=== PATIENT | male | born 1945 | race Caucasian/White ===

== ENCOUNTER 2021-09-07 16:44 | Inpatient (IN) | payer MEDICARE, OTHER, SELFPAY ==
[2021-09-07] VITALS (7 sets, daily range): BP systolic 130–146; BP diastolic 62–68; PULSE 79–93; RESP 22–31; TEMP 37.1–38.4; O2SAT 92–98
--- NOTE | 2021-09-07 16:45 | DI.RAD_ITS ---
Exam(s) XR PORTABLE CHEST AP EXAM: XR PORTABLE CHEST AP CLINICAL HISTORY: fever TECHNIQUE: 2D digital imaging was performed of the chest. Two images were obtained. AP views were obtained. COMPARISON: No exams were available for comparison FINDINGS: MEDIASTINUM: Normal. HEART: Normal. There is an aortic valve in place. PULMONARY VASCULATURE: Normal. LUNGS: Clear. PLEURAL SPACE: No pleural effusion or pneumothorax. BONE:Within normal limits for the patient's age. Sternal wires are present. OTHER FINDINGS:Normal. IMPRESSION: No acute pulmonary findings. DATA REPOSITORY: RADIATION DOSE DELIVERED:
--- NOTE | 2021-09-07 16:45 | RT.EKG_ITS ---
APPROVED REPORT Exam: Resting ECG Reason for Exam: fever Patient Location: E HR:89 bpm ECG Measurements Heart Rate 89 AXIS MO 155 P 63 QRSd 84 QRS 45 QT 349 T 44 QTc 424 Conclusion Sinus rhythm...normal P axis, V-rate 60- 99 Probable left atrial enlargement...P >50mS, <-0.10mV V1
[2021-09-07] MEDS: ACETAMINOPHEN 1,000 MG/100 ML BTL 400 MG (16:59)
--- NOTE | 2021-09-07 17:04 | ED.GENADUL_ITS ---
Discharge Plan Disposition Condition: Fair Discharge Details Chief Complaint: GenMedical Admit Date/Time: 09/07/21 20:23 Admit Provider: Tab Becker Attending Provider: Tab Becker Primary Care Provider: Oralia Bai ED Provider: Zoë Turner Discharge Instructions Activity:: Activity as Tolerated Diet:: NPO Discharge Orders Discharge Orders: Discharge Order (Routine); Ordered 09/14/21 Ordered By: Genevieve Da Silva Discharge Data Discharge Date/Time-TO BE ENTERED AT DEPARTURE: 09/07/21 22:28 Medical Decision Making <FREDERIC Melendez - Last Filed: 09/21/21 13:16> Patient is a pleasant 76-year-old gentleman brought in via EMS for chief complaint of confusion, foul-smelling urine, fever. Per EMS, patient went to bed as he typically would last night but then has not been willing or able to get out of bed for the remaining of the day. Coming in around 5 PM. They report that throughout the day, patient has been incontinent of urine at home in bed. This is atypical for the patient is typically up and around. Past medical history is pertinent for BPH, CHF, diabetes, GERD, hyperlipidemia, hyperglycemia, neuropathy, obesity, urinary incontinence. Patient syncope as per EMS, with history of CHF, given 500 cc bolus. He has not received any antipyretics today. On exam, patient appears acutely ill. He is quite confused is not able to tell me who he is, where he is or time. Patient is hot to touch, temp of 38.4, will give acetaminophen. Patient not able to follow commands but is moving spontaneously all 4 extremities. He is able to attempt to answer some questions but is fairly nonsensical. Lungs are clear in all pal. No notable abnormalities with cranial nerve testing, although this was limited. Patient does smell strongly of urine, has erythematous rash around groin area. No petechial rash, no nuchal rigidity. He does have lower extremity bilateral edema. Patient is tachycardic with a heart rate of 90, blood pressure 146/68. I am concerned for septicemia and will move forward with empiric antibiotic for likely underlying UTI given the presentation history. Howver, also concerned with the BLE edema for possible concominent CHF exacerbation, will be cautious with fluids and obtain BNP. Labs reviewed. WBC 13, hgb 12.8, lactate 1.7, BNP 2129. Spoke with patient's . She reports that rash is chronic, had been diagnosed by PCP with yeast infection and treated with prednisone. She reports that the prednisone was completed 3 weeks ago- had been on it chronically. She states that the significant rash is baseline. She reports that he often does not drink much. Feels that the report from EMS was appropriate. Uses a lift chair at baseline. Erin [id number]. With confusion, concerned for urosepsis, will obtain CT to ensure no obstructing stone. Patient also had some discomfort with palpation of lower abdomen. Urine shows many bacteria. COVID negative. FINDINGS: Tubes, catheters and devices: Aortic valvular prosthesis in the expected position. Lungs: No consolidation. Pleural spaces: No pleural effusion. No pneumothorax. Heart/Mediastinum: No significant cardiomegaly for position and projection. Bones/joints: Median sternotomy wires. No displaced fracture. IMPRESSION: Negative portable chest. FINDINGS: Tubes, catheters and devices: Aortic valvular prosthesis in the expected position. Liver: Heterogeneous fatty liver. No hepatic masses on noncontrast imaging. Gallbladder and bile ducts: No calcified stones. No ductal dilation. Pancreas: No gross pathology in the pancreas on noncontrast imaging. Spleen: Small splenic calcifications compatible with benign granulomata. Adrenal glands: No mass. Kidneys and ureters: No nephrolithiasis or collecting system obstruction. Stomach and bowel: Colonic diverticulosis without diverticulitis. No gross pathology in the small bowel on noncontrast imaging. Appendix: No evidence of appendicitis. Intraperitoneal space: No free air. No significant fluid collection. Vasculature: No abdominal aortic aneurysm. Lymph nodes: No significantly enlarged lymph nodes. Urinary bladder: Andres catheter decompresses a probably mildly thick-walled urinary bladder. Reproductive: Moderate prostatic enlargement. Bones/joints: Median sternotomy wires. Left total hip arthroplasty visualized portions anatomic. Chronic bony changes with no acute fracture. Soft tissues: Large fat-containing umbilical hernia. IMPRESSION: 1. Andres catheter decompresses a probably mildly thick-walled urinary bladder.? Wall thickening could be due to chronic outlet disease and or cystitis.? No hydronephrosis. 2. Incidental findings as described. Patient appears to be clearing some. More interactive and appropriate although still confused. Consulted with hospitalist regarding admission for urosepsis. Hospitalist agrees to admission. <Will Younger MD - Last Filed: 09/10/21 16:05> Date: 09/07/21 Time: 16:50 Note: Patient seen, examined, and discussed with FREDERIC Turner. Labs reviewed and leukocytosis noted. Agree with concern for sepsis. Consider urinary source. Urinalysis pending. Patient does have significant tinea cruris and may have superimposed cellulitis right groin. I agree with treatment plan as discussed/documented. HPI <FREDERIC Melendez - Last Filed: 09/21/21 13:16> General Date/Time Provider Initiated Documentation: 09/07/21 16:59 . Limitations to Documentation: altered mental status . Information obtained by: EMS, RN notes reviewed and old records reviewed . History of Present Illness 76 year old M presents to the emergency department with the chief complaint of AMS, fever, urinary incontinence, foul smelling urine, Related Data Home Medications Medication Instructions Recorded Confirmed acetaminophen 500 mg tablet 500 mg PO TID PRN 02/27/14 09/08/21 (Acetaminophen Extra Strength) multivit, iron, min. comb. 1 tab PO DAILY ##30 04/01/14 09/08/21 no.8-folic acid 9 mg-0.4 mg tablet (Therapeutic-M) pravastatin 40 mg tablet 40 mg PO QPM ##30 04/01/14 09/08/21 furosemide 20 mg tablet (Lasix) 20 mg PO DAILY 08/29/21 09/08/21 metformin 500 mg tablet 500 mg PO BID 08/29/21 09/08/21 metoprolol succinate 25 mg 25 mg PO DAILY 09/08/21 09/08/21 tablet,extended release 24 hr omeprazole 20 mg capsule,delayed 20 mg PO DAILY 09/08/21 09/08/21 release aspirin 325 mg tablet 325 mg PO DAILY 09/13/21 09/13/21 Previous Rx's Medication Instructions Recorded multivit, iron, min. comb. 1 tab PO DAILY ##30 04/01/14 no.8-folic acid 9 mg-0.4 mg tablet (Therapeutic-M) pravastatin 40 mg tablet 40 mg PO QPM ##30 04/01/14 Allergies Allergy/AdvReac Type Severity Reaction Status Date / Time No Known Allergies Allergy Unverified 02/25/14 20:32 General Stated Complaint: GenMedical CLEMENTINA: 2 Review of Systems <FREDERIC Melendez - Last Filed: 09/21/21 13:16> Narrative: Unable to obtain from patient secondary to mental status PFSH <FREDERIC Melendez - Last Filed: 09/21/21 13:16> All Active Problems (Updated 09/15/21 @ 00:01 by MARGARETH SENA) 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 Aortic valve replacement 04/2013 b. left THR 10/04/2013 c. Left TKR 6-7 years ago Hypertension (Chronic) Medical History BPH (benign prostatic hyperplasia) CHF (congestive heart failure) Diabetes Dizziness and giddiness GERD (gastroesophageal reflux disease) HLD (hyperlipidemia) Hyperglycemia Neuropathy Obesity Psoriasis Urinary incontinence Surgical History H/O hernia repair Hx of CABG S/P appendectomy S/P knee replacement Social History Smoking/Tobacco Use Status: Former Tobacco Use Smoking risk assessment performed?: Yes Drug use: Never Substance use type: does not use Do you feel safe at home: Yes Do you feel safe in your relationship?: Yes Exam <FREDERIC Melendez - Last Filed: 09/21/21 13:16> Const General: cooperative, not healthy appearing, comfortable, well developed, disheveled, ill appearing acutely and No well hydrated Nutritional Appearance: well nourished and overweight Orientation: alert, awake, not oriented x3 and confused HENNY Head: normal to inspection, normocephalic and atraumatic Ears: hearing grossly normal bilaterally, external ears normal and TM's normal bilaterally General nose exam: external nose normal and nares normal Face and sinus: normal facial exam, sinuses nontender and face symmetric Mouth: lip normal, tongue normal, oropharynx normal and mucous membranes dry (appears dry) Teeth and gingiva: dentition normal Throat: posterior oropharynx normal, tonsils normal and uvula midline Eyes General: appearance normal, both eyes and all related structures (EOM intact, PERRLA) Neck Neck: normal visual inspection, full ROM, no lymphadenopathy and no meningeal signs Resp Effort & Inspection: normal respiratory effort, able to speak in complete sentences and no respiratory distress Auscultation: clear to auscultation bilaterally, no rales, no rhonchi and no wheezes Cardio Rate: regular rate Rhythm: regular rhythm Heart Sounds: S1 normal and S2 normal GI Inspection: normal to inspection (rash as below) Palpation: soft, no hepatosplenomegaly, no guarding, not rigid and tender (pain elicited with palpation of lower abdomen, no peritoneal findings) not at McBurney's point and with no rebound tenderness General: bimanual renal exam normal bilaterally (rash, otherwise no acute abnormality or pain) Skin Rashes: rashes noted (diffuse erythematous rash consistent with tinuea, possible cellulitis) and other (rash is along length or right side of body and groin) Neuro General: patient alert and patient awake Cognition: abnormal cognition Speech: speech normal Gait: other (did not assess gait) Motor: muscle tone normal throughout, no pronator drift and no movement abnormalities noted Extrem General: normal to inspection (right to right lateral thigh, disipates distal to this), capillary refill normal, no joint enlargement, no pedal edema, no calf tenderness and other (2+ distal pulses) Psych Appearance: disheveled Course <FREDERIC Melendez - Last Filed: 09/21/21 13:16> Vital Signs Vital signs: Vital Signs Temperature 38.4 C H 09/07/21 16:46 Pulse 90 09/07/21 16:46 Respiratory Rate 28 H 09/07/21 16:46 Blood Pressure 146/68 H 09/07/21 16:46 Pulse Oximetry 94 09/07/21 16:46 Temperature 38.4 C H 09/07/21 16:46 Temperature Source Skin 09/07/21 16:46 Pulse 90 09/07/21 16:46 Respiratory Rate 28 H 09/07/21 16:46 Blood Pressure 146/68 H 09/07/21 16:46 Blood Pressure Position Supine 09/07/21 16:46 Pulse Oximetry 94 09/07/21 16:46 Oxygen Delivery Method Room Air 09/07/21 16:46 Oxygen Flow Rate 0 09/07/21 16:46 Comment 09/07/21 16:46 Lab/Test Results Lab/Test Results: 09/07/21 17:00 Blood Blood Culture - Pending 09/07/21 17:00 Blood Blood Culture - Pending
--- NOTE | 2021-09-07 17:30 | DI.CT_ITS ---
Exam(s) CT ABDOMEN PELVIS WO EXAM: CT ABDOMEN PELVIS WO CLINICAL HISTORY: concerned for urosepsis, mildiscomfort centrally. TECHNIQUE: Imaging Protocol: Axial computed tomography images with coronal and sagittal reformatted images were created and reviewed. COMPARISON: No exams were available for comparison FINDINGS: Lack of IV contrast does limit evaluation of the abdominal pelvic organs. The examination is limited due to patient motion artifact. ABDOMEN: Lung Bases: Coronary artery calcifications. Aortic valve replacement. Calcified lymph nodes in the mediastinum consistent with prior granulomatous disease. Small hiatal hernia. Liver: Diffuse fatty infiltration of the liver. No measurable mass. Gallbladder and biliary tract: No radiodense calculus or biliary ductal dilation. Pancreas: Normal density, no abnormal calcifications or inflammatory process. Spleen: Calcified granuloma in the spleen. Kidneys: Normal size, contour and axis.No radiodense stones or obstructive uropathy. No masses seen. Adrenal glands: No mass is seen. Lymph nodes: Within normal limits. Abdominal Aorta: Abdominal portion non-dilated. Atherosclerosis. PELVIS: Bladder:The bladder is decompressed with Andres catheter in place limiting evaluation. The bladder wa ll is thickened. This may be due to underdistention. Chronic bladder outlet obstruction or inflamma tion/infection cannot be excluded. Bowel: No obstruction or bowel wall thickening. No evidence of appendicitis. Peritoneal cavity: No ascites, collection or mesenteric inflammatory response. No free air. Reproductive organs: Enlarged prostate gland. Bones: Within normal limits. Patient has a left total hip replacement. Soft Tissues: There is a moderate size fat containing midline anterior abdominal wall hernia. IMPRESSION: 1. Limited evaluation of the urinary bladder secondary to decompression. There is a Andres catheter i n place. There is thickening of the wall of the urinary bladder. This may be due to underdistention , chronic bladder outlet obstruction or an infectious/inflammatory process. Please correlate clinica lly. 2. Nonemergent chronic findings in the abdomen and pelvis as described above. RADIATION DOSE DELIVERED: 1,542.84mGy.cm Total DLP DATA REPOSITORY: All CT scans at this facility are submitted to the National Radiology Data Registry (NRDR) Dose Index Registry (DIR) with the [employer] ([employer]). RADIATION OPTIMIZATION: All CT scans at this facility use at least one of these dose optimization te chniques: automated exposure control; mA and/or kV adjustment per patient size (includes targeted exa ms where dose is matched to clinical indication); or iterative reconstruction.
[2021-09-07 17:42] LABS: Abs Immature Grans 0.11 10^3/uL (0.0-0.06); Absolute Basophil Count 0.03 10^3/uL (0.0-0.2); Absolute Eosinophil Count 0.03 10^3/uL (0.0-0.7); Absolute Monocyte Count 0.25 10^3/uL (0.1-0.8); Basophils % 0.2; Eosinophils % 0.2; HGB 12.8 g/dL (13.5-17.5); Immature Grans % 0.8; Lymphocytes % 4.4; MCH 33.2 pg (27.0-33.0); MCHC 33.7 % (32.0-36.0); MCV 98 fL (80-95); MPV 10.8 fL (8.0-11.0); Monocytes % 1.9; Neutrophils % 92.5; Platelet Count 225 10^3/uL (130-400); RBC 3.86 10^6/uL (4.36-5.78); RDW-SD 46.3 fL; WBC 13.05 10^3/uL (4.4-10.8)
[2021-09-07 17:43] LABS: Absolute Lymphocyte Count 0.57 10^3/uL (1.2-3.4); Absolute Neutrophil Count 12.07 10^3/uL (1.2-6.7)
[2021-09-07 17:51] LABS: Lactate 1.7 mmol/L (0.6-1.4)
[2021-09-07 18:10] LABS: ALT 27 U/L (16-63); AST 17 U/L (15-37); Albumin 3.1 g/dL (3.4-5.0); Alkaline Phosphatase 73 U/L (46-116); Anion Gap 10.2 mmol/L (3-11); BUN 15 mg/dL (7-18); CO2 25.8 mmol/L (21.0-32.0); CREATININE 1.2 mg/dL (0.70-1.30); Calcium 8.3 mg/dL (8.5-10.1); Chloride 103 mmol/L (98-107); Estimated GFR 58.56 (mL/min/1.73m2); Glucose 212 mg/dL (74-106); Potassium 3.9 mmol/L (3.5-5.1); Sodium 139 mmol/L (136-145); Total Protein 7.5 g/dL (6.4-8.2)
[2021-09-07] MEDS: IMIPENEM/CILASTATIN 500 MG in Normal Saline 100 ML 200 MG IVPB (18:12)
[2021-09-07 18:30] LABS: Troponin I < 50 ng/L (<or=60)
[2021-09-07 18:34] LABS: NT-proBNP 2192 pg/mL (<300)
[2021-09-07 19:34] LABS: Bilirubin Negative (Negative); Blood Large (Negative); Clarity Sl Cloudy (Clear); Glucose Negative (Negative); Ketones Negative (Negative); Leukocyte Esterase Trace (Negative); Nitrite Negative (Negative); Specific Gravity >= 1.030 (1.005-1.025); Urobilinogen 0.2 EU/dL (Up TO 0.2)
[2021-09-07 19:40] LABS: Bacteria Many HPF (Negative); C & S Indicated? Yes; Casts Negative LPF (Negative); Crystals Negative HPF (Negative); Epithelial Cells Negative HPF (Negative); Mucus Trace (Negative); RBC >50 HPF (0-2); WBC 20-50 HPF (0-5)
--- NOTE | 2021-09-07 19:47 | DI.VRAD_ITS ---
PROCEDURE INFORMATION: Exam: XR Chest Exam date and time: 09/07/2021 19:18 Age: 76 years old Clinical indication: Fever TECHNIQUE: Imaging protocol: XR of the chest. Views: 1 view. COMPARISON: No relevant prior studies available. FINDINGS: Tubes, catheters and devices: Aortic valvular prosthesis in the expected position. Lungs: No consolidation. Pleural spaces: No pleural effusion. No pneumothorax. Heart/Mediastinum: No significant cardiomegaly for position and projection. Bones/joints: Median sternotomy wires. No displaced fracture. IMPRESSION: Negative portable chest. Dictated and Authenticated by: Dora Holder MD. Ordering:LADONNA Camp MD
--- NOTE | 2021-09-07 19:49 | DI.VRAD_ITS ---
PROCEDURE INFORMATION: Exam: CT Abdomen And Pelvis Without Contrast Exam date and time: 09/07/2021 19:23 Age: 76 years old Clinical indication: Other: Urosepsis TECHNIQUE: Imaging protocol: Computed tomography of the abdomen and pelvis without contrast. COMPARISON: CR XR PORTABLE CHEST AP 09/07/2021 19:18 FINDINGS: Tubes, catheters and devices: Aortic valvular prosthesis in the expected position. Liver: Heterogeneous fatty liver. No hepatic masses on noncontrast imaging. Gallbladder and bile ducts: No calcified stones. No ductal dilation. Pancreas: No gross pathology in the pancreas on noncontrast imaging. Spleen: Small splenic calcifications compatible with benign granulomata. Adrenal glands: No mass. Kidneys and ureters: No nephrolithiasis or collecting system obstruction. Stomach and bowel: Colonic diverticulosis without diverticulitis. No gross pathology in the small bowel on noncontrast imaging. Appendix: No evidence of appendicitis. Intraperitoneal space: No free air. No significant fluid collection. Vasculature: No abdominal aortic aneurysm. Lymph nodes: No significantly enlarged lymph nodes. Urinary bladder: Andres catheter decompresses a probably mildly thick-walled urinary bladder. Reproductive: Moderate prostatic enlargement. Bones/joints: Median sternotomy wires. Left total hip arthroplasty visualized portions anatomic. Chronic bony changes with no acute fracture. Soft tissues: Large fat-containing umbilical hernia. IMPRESSION: 1. Andres catheter decompresses a probably mildly thick-walled urinary bladder. Wall thickening could be due to chronic outlet disease and or cystitis. No hydronephrosis. 2. Incidental findings as described. Dictated and Authenticated by: Dora Holder MD. Ordering:LADONNA Camp MD
[2021-09-07 19:56] LABS: Procalcitonin 0.1 ng/mL
[2021-09-07] MEDS: VANCOMYCIN/WATER (PEG) 1.75 GM/350 ML BAG IVPB (20:11)
[2021-09-07 20:22] LABS: COVID-19 PCR Negative (Negative); Influenza A PCR Negative (Negative); Influenza B PCR Negative (Negative); RSV PCR Negative (Negative)
[2021-09-07 20:24] LABS: Source Nasopharynx
[2021-09-07 22:33] LABS: Troponin I < 50 ng/L (<or=60)
--- NOTE | 2021-09-07 22:53 | NUR.NOTE ---
Patient transferred to ICU at 22:22. Report given to Marissa.Nursing Note:
[2021-09-07] MEDS: Normal Saline 1,000 ML 125 ML IV (23:00)
--- NOTE | 2021-09-07 23:12 | W.PM.HP.N ---
Date of service: 09/07/21 Time of Service: 22:23 Assessment and Plan Assessment and plan (1) Sepsis secondary to UTI: Status: Acute Assessment and plan: Emergency room evaluation suggests UTI as cause of sepsis. I do agree with the diagnosis of early sepsis on presentation with fever, high WBC, confusion. Looking at the UA, however, I'm not totally convinced this is the source. Negative nitrite speaks against gram negative. He also has a large apparently fungal rash that includes open fissures that may be superinfected. CT A/P did not reveal an alternative cause. No signs of respiratory illness. I'm not sure how long he has been on prednisone, so he may be immune suppressed. He is not showing signs of adrenal insufficiency. Given uncertainty, I will continue imepenem and vancomycin to cover urosepsis but also skin infection while blood and urine cultures are pending. (2) Rash: Status: Acute Assessment and plan: This does look fungal as it is focused in intertriginous areas and has satellite lesions, however it extends from the groin and thight up to right axilla. I will treat with topical steroid/antifungal/barrier cream, consider oral antifungal if not improving. (3) CAD (coronary artery disease): Status: Chronic Assessment and plan: We need to clarify this history. He is on a lower intensity statin and ASA dose we have is high. Will try to clarify with records in the AM. Currently he denies chest pain and has no signs of CHF, EKG is benign. (4) Type 2 diabetes mellitus: Status: Acute Assessment and plan: On metformin as outpatient. Hold this for now, use ISS low to start, get A1c. (5) S/P AVR (aortic valve replacement): Status: Chronic Assessment and plan: Warfarin listed on med list, presumably for AVR (CXR c/w open replacement). His heart does not sound like mechanical valve. We need more clear records, but for now get INR which will confirm if he is taking warfarin. Dose to maintain INR ~3 if he is truly on this. (6) Mobility impaired: Status: Acute Assessment and plan: I'm concerned that he may have Parkinson disease given the increased tone and some slow rubbing tremor in right hand. This would explain his progressive immobility. Will review outpatient record and consider neurology consult and medication trial. (7) DVT prophylaxis: Status: Acute Assessment and plan: see above re: warfarin (8) Discharge planning issues: Status: Acute History of Present Illness History of Present Illness Chief Complaint: confusion Narrative: 76 yo M with history of CAD, quite sedentary at baseline, who woke this morning with fevers and foul smelling urine. During the course of the day he became increasingly confused and his brought him into the hospital. History second hand from ED record from his family as patient is unable to relate the history to me. He was acting his normal self the night prior to admission. No signs of respiratory infection. He has had a severe fungal rash for months, hasn't changed much. Can't recall treatments given. Review of Systems Narrative: limited by mental status/cooperation. Constitutional Comments: he is hungry. Eyes Comments: no pain or vision changes ENT Comments: mouth dry, denies pain. no runny nose. Cardiovascular Comments: no chest pain or palpitations Respiratory Comments: no cough or dyspnea Gastrointestinal Comments: no n/v, no change in bowels Genitourinary Comments: did not answer clearly about dysuria. no sores in genitals. no blood in urrine noted. Neurologic Comments: no focal weakness/numbness. no NARANJO Psychiatric Comments: does not answer questions about mood PFSH All Active Problems (Updated 09/08/21 @ 00:03 by Tab Becker) Mobility impaired (Acute) Type 2 diabetes mellitus (Acute) Discharge planning issues (Acute) DVT prophylaxis (Acute) Rash (Acute) Sepsis secondary to UTI (Acute) Hypercholesteremia (Chronic) CAD (coronary artery disease) (Chronic) S/P AVR (aortic valve replacement) (Chronic) 04/2013 H/O surgical procedure (Chronic) a. Aortic valve replacement 04/2013 b. left THR 10/04/2013 c. Left TKR 6-7 years ago Hypertension (Chronic) Medical History (Updated 09/08/21 @ 00:03 by Tab Becker) BPH (benign prostatic hyperplasia) CHF (congestive heart failure) Diabetes Dizziness and giddiness GERD (gastroesophageal reflux disease) HLD (hyperlipidemia) Hyperglycemia Neuropathy Obesity Psoriasis Urinary incontinence Surgical History (Updated 08/29/21 @ 09:47 by Lyndsey Solorio) H/O hernia repair Hx of CABG S/P appendectomy S/P knee replacement Social History Smoking/Tobacco Use Status: Former Tobacco Use Smoking risk assessment performed?: Yes Drug use: Never Substance use type: does not use Do you feel safe at home: Yes Do you feel safe in your relationship?: Yes Meds Allergies and Home Medications Allergies Allergy/AdvReac Type Severity Reaction Status Date / Time No Known Allergies Allergy Unverified 02/25/14 20:32 Home Medications Medication Instructions Recorded Confirmed Type acetaminophen 500 mg tablet 500 mg PO TID 02/27/14 02/27/14 History (Acetaminophen Extra Strength) nitroglycerin 0.4 mg sublingual 0.4 mg sublingual PRN PRN 02/27/14 02/27/14 History tablet aspirin 325 mg tablet 325 mg PO BID ##60 04/01/14 Rx atenolol 25 mg tablet 12.5 mg PO DAILY ##30 04/01/14 Rx multivit, iron, min. comb. 1 tab PO DAILY ##30 04/01/14 Rx no.8-folic acid 9 mg-0.4 mg tablet (Therapeutic-M) polyethylene glycol 3350 17 gram 17 g PO BID PRN PRN ##0 04/01/14 02/27/14 Rx oral powder packet (Miralax) pravastatin 40 mg tablet 40 mg PO QPM ##30 04/01/14 Rx sennosides 8.6 mg tablet (Senna 8.6 mg PO DAILY PRN PRN ##0 04/01/14 02/27/14 Rx Lax) famotidine 40 mg tablet 40 mg PO DAILY 08/29/21 History furosemide 20 mg tablet (Lasix) 20 mg PO DAILY 08/29/21 History ibuprofen 800 mg tablet 800 mg PO Q8H PRN 08/29/21 History metformin 500 mg tablet 500 mg PO BID 08/29/21 History prednisone 10 mg tablet 10 mg PO DAILY 08/29/21 History tramadol 50 mg tablet 50 mg PO Q6H PRN 08/29/21 History warfarin 5 mg tablet 5 mg PO DAILY 08/29/21 History Exam Narrative Exam Narrative: GEN: Alert, oriented to place and self, but only intermittently gives attention or responds to examiner. Answers some but not all direct questions, unable to relate a history. No acute distress at rest. HEENT: Head atraumatic. Conjunctiva clear, no icterus. PEERL, EOMI. no rhinorrhea. MM dry, he declines to take out upper dentures, whitish plaque on tongue, but he refuses to keep his mouth open to examine fully. Neck is supple with no masses or lymphadenopathy, trachea midline. no elevation of JVP LUNGS: CTAB with normal effort CV: RRR. I couldn't appreciate a murmur. no gallops or rubs. ABD: +BS, soft, 4cm umbilical hernia. Mild suprapubic tenderness. no guarding/rebound EXT: no cyanosis, clubbing, legs not tender. Trace jessica ankle edema MSK: No joint redness or swelling NEURO: CN 2-12 grossly intact. holding his arms flexed with hands together against chest. +increased tone jessica with cogwheeling in arms. Rhythmically rubbing 1st-2nd fingers together on right. Normal speech. Needs a lot of coaching just to reach across or move in bed. Full exam limited but patient cooperation/ability. SKIN: beefy red patch extending from right thigh into groin, up under pannus, up to right axilla. skin fissues cracked in groin and under pannus PSYCH: normal mood and flat. Results Imaging Chest x-ray: image reviewed (no acute disease, old sternotomy wires) Abdomen CT scan report/results: report reviewed CT scan - pelvis: report reviewed (1. Andres catheter decompresses a probably mildly thick-walled urinary bladder. Wall thickening could be due to chronic outlet disease and or cystitis. No hydronephrosis. 2. Incidental findings as described.) EKG: image reviewed (NSR, nl axis, intervals. No ST-T abnormalities) Labs Result diagrams: 09/07/21 17:20 09/07/21 17:20 Labs: Laboratory Results - last 24 hr 09/07/21 09/07/21 09/07/21 17:20 17:20 17:20 WBC 13.05 H RBC 3.86 L Hgb 12.8 L Hct 38.0 L MCV 98 H MCH 33.2 H MCHC 33.7 RDW 13.0 Plt Count 225 MPV 10.8 Immature Gran % 0.8 Neutrophils % 92.5 Lymphocytes % 4.4 Monocytes % 1.9 Eosinophils % 0.2 Basophils % 0.2 Nucleated RBC % 0.0 Absolute Neutrophils 12.07 H Absolute Lymphocytes 0.57 L Absolute Monocytes 0.25 Absolute Eosinophils 0.03 Absolute Basophils 0.03 VBG Lactate Sodium Potassium Chloride Carbon Dioxide Anion Gap BUN Creatinine Estimated GFR/1.73 m2 Glucose Calcium Total Bilirubin AST ALT Alkaline Phosphatase Troponin I < 50 NT-Pro-B Natriuret Pep Total Protein Albumin Procalcitonin 0.1 Urine Color Urine Clarity Urine pH Ur Specific [place] Urine Protein Urine Ketones Urine Blood Urine Nitrite Urine Bilirubin Urine Urobilinogen Ur Leukocyte Esterase Urine RBC Urine WBC Ur Epithelial Cells Urine Crystals Urine Bacteria Urine Casts Urine Mucus Ur Culture Indicated? Urine Glucose COVID-19 Source SARS-CoV-2 (PCR) Influenza Type A (PCR) Influenza Type B (PCR) RSV (PCR) 09/07/21 09/07/21 09/07/21 17:20 17:20 17:29 WBC RBC Hgb Hct MCV MCH MCHC RDW Plt Count MPV Immature Gran % Neutrophils % Lymphocytes % Monocytes % Eosinophils % Basophils % Nucleated RBC % Absolute Neutrophils Absolute Lymphocytes Absolute Monocytes Absolute Eosinophils Absolute Basophils VBG Lactate 1.7 H Sodium 139 Potassium 3.9 Chloride 103 Carbon Dioxide 25.8 Anion Gap 10.2 BUN 15 Creatinine 1.2 Estimated GFR/1.73 m2 58.56 Glucose 212 H Calcium 8.3 L Total Bilirubin 1.0 AST 17 ALT 27 Alkaline Phosphatase 73 Troponin I NT-Pro-B Natriuret Pep 2192 H Total Protein 7.5 Albumin 3.1 L Procalcitonin Urine Color Urine Clarity Urine pH Ur Specific [place] Urine Protein Urine Ketones Urine Blood Urine Nitrite Urine Bilirubin Urine Urobilinogen Ur Leukocyte Esterase Urine RBC Urine WBC Ur Epithelial Cells Urine Crystals Urine Bacteria Urine Casts Urine Mucus Ur Culture Indicated? Urine Glucose COVID-19 Source SARS-CoV-2 (PCR) Influenza Type A (PCR) Influenza Type B (PCR) RSV (PCR) 09/07/21 09/07/21 09/07/21 19:20 19:40 22:12 WBC RBC Hgb Hct MCV MCH MCHC RDW Plt Count MPV Immature Gran % Neutrophils % Lymphocytes % Monocytes % Eosinophils % Basophils % Nucleated RBC % Absolute Neutrophils Absolute Lymphocytes Absolute Monocytes Absolute Eosinophils Absolute Basophils VBG Lactate Sodium Potassium Chloride Carbon Dioxide Anion Gap BUN Creatinine Estimated GFR/1.73 m2 Glucose Calcium Total Bilirubin AST ALT Alkaline Phosphatase Troponin I < 50 NT-Pro-B Natriuret Pep Total Protein Albumin Procalcitonin Urine Color Yellow Urine Clarity Sl Cloudy Urine pH 6.0 Ur Specific [place] >= 1.030 H Urine Protein 30 H Urine Ketones Negative Urine Blood Large H Urine Nitrite Negative Urine Bilirubin Negative Urine Urobilinogen 0.2 Ur Leukocyte Esterase Trace H Urine RBC >50 H Urine WBC 20-50 H Ur Epithelial Cells Negative Urine Crystals Negative Urine Bacteria Many Urine Casts Negative Urine Mucus Trace Ur Culture Indicated? Yes Urine Glucose Negative COVID-19 Source Nasopharynx SARS-CoV-2 (PCR) Negative Influenza Type A (PCR) Negative Influenza Type B (PCR) Negative RSV (PCR) Negative Last Vital Signs Temp 37.1 C 09/07/21 20:37 Pulse 91 H 09/07/21 20:37 Resp 22 09/07/21 20:37 BP 146/68 H 09/07/21 16:46 Pulse Ox 92 09/07/21 20:37
[2021-09-08] VITALS (7 sets, daily range): BP systolic 124–148; BP diastolic 51–73; PULSE 66–96; RESP 17–24; TEMP 37–38.9; O2SAT 95–99
[2021-09-08] MEDS: ACETAMINOPHEN 1,000 MG/100 ML BTL 400 MG IVPB (01:13)
[2021-09-08] MEDS: IMIPENEM/CILASTATIN 500 MG in Normal Saline 100 ML 200 MG IVPB ×4 (01:38→21:15)
[2021-09-08 05:08] LABS: INR 1.1 (0.9-1.1)
[2021-09-08] MEDS: Atenolol 25 MG TAB 12.5 MG PO (07:52)
[2021-09-08] MEDS: Acetaminophen 500 MG TAB PO ×2 (07:52→21:56)
[2021-09-08] MEDS: Famotidine 20 MG TAB 40 MG PO (07:53)
[2021-09-08] MEDS: Furosemide 20 MG TAB PO (07:53)
[2021-09-08] MEDS: Insulin Aspart 300 UNITS/3 ML PEN SC ×3 (08:43→17:29)
[2021-09-08] MEDS: Normal Saline 1,000 ML 125 ML IV (08:45)
--- NOTE | 2021-09-08 09:20 | NUR.NOTE ---
RN gives telephonic update to patient's who will visit after noon today.Nursing Note:
--- NOTE | 2021-09-08 09:25 | PDOC.CMIN ---
- If Service Date Differs Date of service: 09/08/21 Time of Service: 09:25 Care Management Initial Assess REASON FOR HOSPITALIZATION:: UTI, Septicemia. PAST MEDICAL HISTORY/PAST SURGICAL HISTORY:: All Active Problems: Mobility impaired (Acute), Type 2 diabetes mellitus (Acute), Discharge planning issues (Acute), DVT prophylaxis (Acute),. Rash (Acute), Sepsis secondary to UTI (Acute), Hypercholesteremia (Chronic), CAD (coronary artery disease) (Chronic), S/P AVR (aortic valve replacement) (Chronic) - 04/2013, H/O surgical procedure (Chronic) - a. Aortic valve replacement 04/2013, b. left THR 10/04/2013, c. Left TKR 6-7 years ago, and Hypertension (Chronic). Medical History: BPH (benign prostatic hyperplasia), CHF (congestive heart failure), Diabetes, Dizziness and giddiness, GERD (gastroesophageal reflux disease), HLD (hyperlipidemia), Hyperglycemia, Neuropathy,. Obesity, Psoriasis, and Urinary incontinence. Surgical History: H/O hernia repair, Hx of CABG, S/P appendectomy, and. S/P knee replacement. PREVIOUS FUNCTIONAL STATUS/SOCIAL/FAMILY SUPPORTS:: Alvarez lives in [facility] with his , their son Quan, [id number], and 4 grandkids. Alvarez is retired but formerly worked at [employer] in the [employer]. Alvarez and his have 6 children, 3 sons and 3 daughters, all of whom live in [place] with the exception of one son who resides in [place]. Alvarez enjoys watching television and especially likes the [employer] television series. CURRENT FUNCTIONAL STATUS:: Alvarez is sitting up in bed when CM comes to see him. His and son are present in the room. He states when at home, he spends a lot of time sleeping. He at times seems a bit confused and has difficulty answering questions. Per his , he ambulates at home with a walker. ADVANCE DIRECTIVES:: None on file; Alvarez declines form. Has patient been provided with info about the portal/API?: Yes Did the patient sign up for the portal?: No CODE STATUS:: Full Code INSURANCE COVERAGE / FINANCIAL ISSUES:: [employer] and Medicare. CURRENT HOME/COMMUNITY SERVICES/EQUIPMENT:: No services. Alvarez owns a cane, walker, hospital bed, and lift chair. PRIMARY CARE PHYSICIAN:: Alvarez formerly saw Oralia Bai NP, at [facility]. Oralia has since retired and Alvarez has been assigned to a new provider at the clinic and will be meeting with him in September. Neither Alvarez or his can recall the provider's name. POTENTIAL DISCHARGE NEEDS:: Follow up appointment with PCP. PATIENT/FAMILY EDUCATION NEEDS:: Review of discharge instructions re medications and follow up plan of care; discuss Ask Me Three and self management. ANTICIPATED BARRIERS TO DISCHARGE:: None identified. TRANSPORTATION:: Via private vehicle with family. PLAN:: Alvarez will discharge home with no services when medically cleared by provider. He will follow up with his PCP and discharge plan of care as directed. He will be transported home via private vehicle by family when ready. CM will continue to follow.
[2021-09-08] MEDS: VANCOMYCIN/WATER (PEG) 1.25 GM/250 ML BAG IVPB (10:00)
--- NOTE | 2021-09-08 10:06 | NUR.NOTE ---
RN calls lab to see what the delay in drawing patient is. pharmacy technician program director will be up to draw patient.Nursing Note:
--- NOTE | 2021-09-08 10:13 | PGE_ITS ---
Date of Service Date of service: 09/08/21 Time of Service: 09:13 Assessment and Plan Assessment and plan (1) Sepsis secondary to UTI: Status: Acute Assessment and plan: Continue vancomycin and imipenem pending results of blood and urine cultures. Check MRSA nasal swab and if negative DC vancomycin unless he grows Enterococcus in his urine. Continue Andres catheter. Apparently has had some chronic issues with urinary incontinence and urinary retention. Think he has BPH and his evidence on CT scan of chronic thickening of his urinary bladder which would support a diagnosis of chronic urinary retention with overflow incontinence. I think his rash is secondary to lying in urine with pooling of the urine on his right side. Professional time spent interviewing and examining patient, discussion of goals of care with hospital team (care management, nursing and consulting professionals) was 45 minutes. (2) Tinea corporis: Status: Acute Assessment and plan: Agree with application of an antifungal cream along with a barrier ointment including a and D and zinc to promote healing. (3) Type 2 diabetes mellitus: Status: Acute Assessment and plan: currently on novolog sliding scale; I will add CHO coverage, and Lantus. hold metformin while inpatient (4) Hypertension: Status: Chronic Assessment and plan: patient has not needed any hypertensives since admission. However, Dr. Becker did reorder the patient's atenolol and lasix (5) Hypercholesteremia: Status: Chronic (6) S/P AVR (aortic valve replacement): Status: Chronic Assessment and plan: I sent his aortic valve replacement with bioprosthetic as I did not hear any mechanical click. (7) CAD (coronary artery disease): Status: Chronic Assessment and plan: no ischemic pain and troponin were negative last night. EKG demonstrated normal sinus rhythm with no acute ischemic ST or T wave changes. (8) DVT prophylaxis: Status: Acute Assessment and plan: patient was not put on any DVT prophylaxis. There was some question as to whether or he is suppose to be on warfarin. The patient is followed by Oralia Bai from [facility]. I asked our pharmacist to see if she can get his home med list reconciled (9) Discharge planning issues: Status: Acute Assessment and plan: will ask P.T. and CM to evaluate prior to dc to see what his home health needs are Subjective Subjective Interval history since last seen: Patient is more alert and appropriate sitting up eating breakfast. Does not seem to recall what happened that led up to him coming to the hospital except that he recalls he has been incontinent of urine. He is currently hospitalized for urosepsis. Exam Narrative Exam Narrative: Patient is sitting up in bed eating breakfast alert and oriented person place. Patient appears to be disheveled Lungs are clear to auscultation Heart is regular rate and rhythm Abdomen is obese soft nontender Skin is with a diffuse red excoriated rash along his abdomen and right groin and upper thigh as well as his right lateral chest up to his axilla. From interviewing the patient sounds like he has been incontinent of urine and probably lying in his urine causing a fungal rash. Objective Last Vital Signs Temp 37.0 C 09/08/21 07:38 Pulse 96 H 09/08/21 07:38 Resp 18 09/08/21 07:38 BP 132/60 09/08/21 07:38 Pulse Ox 96 09/08/21 07:38 Laboratory Results - last 24 hr 09/07/21 09/07/21 09/07/21 17:20 17:20 17:20 WBC 13.05 H RBC 3.86 L Hgb 12.8 L Hct 38.0 L MCV 98 H MCH 33.2 H MCHC 33.7 RDW 13.0 Plt Count 225 MPV 10.8 Immature Gran % 0.8 Neutrophils % 92.5 Lymphocytes % 4.4 Monocytes % 1.9 Eosinophils % 0.2 Basophils % 0.2 Nucleated RBC % 0.0 Absolute Neutrophils 12.07 H Absolute Lymphocytes 0.57 L Absolute Monocytes 0.25 Absolute Eosinophils 0.03 Absolute Basophils 0.03 PT INR VBG Lactate Sodium Potassium Chloride Carbon Dioxide Anion Gap BUN Creatinine Estimated GFR/1.73 m2 Glucose Calcium Total Bilirubin AST ALT Alkaline Phosphatase Troponin I < 50 NT-Pro-B Natriuret Pep Total Protein Albumin Procalcitonin 0.1 Urine Color Urine Clarity Urine pH Ur Specific [place] Urine Protein Urine Ketones Urine Blood Urine Nitrite Urine Bilirubin Urine Urobilinogen Ur Leukocyte Esterase Urine RBC Urine WBC Ur Epithelial Cells Urine Crystals Urine Bacteria Urine Casts Urine Mucus Ur Culture Indicated? Urine Glucose COVID-19 Source SARS-CoV-2 (PCR) Influenza Type A (PCR) Influenza Type B (PCR) RSV (PCR) 09/07/21 09/07/21 09/07/21 17:20 17:20 17:29 WBC RBC Hgb Hct MCV MCH MCHC RDW Plt Count MPV Immature Gran % Neutrophils % Lymphocytes % Monocytes % Eosinophils % Basophils % Nucleated RBC % Absolute Neutrophils Absolute Lymphocytes Absolute Monocytes Absolute Eosinophils Absolute Basophils PT INR VBG Lactate 1.7 H Sodium 139 Potassium 3.9 Chloride 103 Carbon Dioxide 25.8 Anion Gap 10.2 BUN 15 Creatinine 1.2 Estimated GFR/1.73 m2 58.56 Glucose 212 H Calcium 8.3 L Total Bilirubin 1.0 AST 17 ALT 27 Alkaline Phosphatase 73 Troponin I NT-Pro-B Natriuret Pep 2192 H Total Protein 7.5 Albumin 3.1 L Procalcitonin Urine Color Urine Clarity Urine pH Ur Specific [place] Urine Protein Urine Ketones Urine Blood Urine Nitrite Urine Bilirubin Urine Urobilinogen Ur Leukocyte Esterase Urine RBC Urine WBC Ur Epithelial Cells Urine Crystals Urine Bacteria Urine Casts Urine Mucus Ur Culture Indicated? Urine Glucose COVID-19 Source SARS-CoV-2 (PCR) Influenza Type A (PCR) Influenza Type B (PCR) RSV (PCR) 09/07/21 09/07/21 09/07/21 19:20 19:40 22:12 WBC RBC Hgb Hct MCV MCH MCHC RDW Plt Count MPV Immature Gran % Neutrophils % Lymphocytes % Monocytes % Eosinophils % Basophils % Nucleated RBC % Absolute Neutrophils Absolute Lymphocytes Absolute Monocytes Absolute Eosinophils Absolute Basophils PT INR VBG Lactate Sodium Potassium Chloride Carbon Dioxide Anion Gap BUN Creatinine Estimated GFR/1.73 m2 Glucose Calcium Total Bilirubin AST ALT Alkaline Phosphatase Troponin I < 50 NT-Pro-B Natriuret Pep Total Protein Albumin Procalcitonin Urine Color Yellow Urine Clarity Sl Cloudy Urine pH 6.0 Ur Specific [place] >= 1.030 H Urine Protein 30 H Urine Ketones Negative Urine Blood Large H Urine Nitrite Negative Urine Bilirubin Negative Urine Urobilinogen 0.2 Ur Leukocyte Esterase Trace H Urine RBC >50 H Urine WBC 20-50 H Ur Epithelial Cells Negative Urine Crystals Negative Urine Bacteria Many Urine Casts Negative Urine Mucus Trace Ur Culture Indicated? Yes Urine Glucose Negative COVID-19 Source Nasopharynx SARS-CoV-2 (PCR) Negative Influenza Type A (PCR) Negative Influenza Type B (PCR) Negative RSV (PCR) Negative 09/08/21 04:40 WBC RBC Hgb Hct MCV MCH MCHC RDW Plt Count MPV Immature Gran % Neutrophils % Lymphocytes % Monocytes % Eosinophils % Basophils % Nucleated RBC % Absolute Neutrophils Absolute Lymphocytes Absolute Monocytes Absolute Eosinophils Absolute Basophils PT 11.0 INR 1.1 VBG Lactate Sodium Potassium Chloride Carbon Dioxide Anion Gap BUN Creatinine Estimated GFR/1.73 m2 Glucose Calcium Total Bilirubin AST ALT Alkaline Phosphatase Troponin I NT-Pro-B Natriuret Pep Total Protein Albumin Procalcitonin Urine Color Urine Clarity Urine pH Ur Specific [place] Urine Protein Urine Ketones Urine Blood Urine Nitrite Urine Bilirubin Urine Urobilinogen Ur Leukocyte Esterase Urine RBC Urine WBC Ur Epithelial Cells Urine Crystals Urine Bacteria Urine Casts Urine Mucus Ur Culture Indicated? Urine Glucose COVID-19 Source SARS-CoV-2 (PCR) Influenza Type A (PCR) Influenza Type B (PCR) RSV (PCR) Reviewed Pertinent PMH: Yes
[2021-09-08 10:41] LABS: Abs Immature Grans 0.14 10^3/uL (0.0-0.06); Absolute Eosinophil Count 0.07 10^3/uL (0.0-0.7); Absolute Monocyte Count 0.13 10^3/uL (0.1-0.8); Basophils % 0.3; Eosinophils % 0.6; HCT 35.6 % (40.0-50.0); Immature Grans % 1.2; Lymphocytes % 6.7; MCH 33.5 pg (27.0-33.0); MCHC 33.7 % (32.0-36.0); MCV 99 fL (80-95); MPV 10.8 fL (8.0-11.0); Monocytes % 1.1; Neutrophils % 90.1; Platelet Count 195 10^3/uL (130-400); RBC 3.58 10^6/uL (4.36-5.78); RDW 12.9 % (11.8-14.1); RDW-SD 46.8 fL; WBC 11.87 10^3/uL (4.4-10.8)
[2021-09-08 10:44] LABS: Absolute Basophil Count 0.04 10^3/uL (0.0-0.2); Absolute Neutrophil Count 10.69 10^3/uL (1.2-6.7)
[2021-09-08 10:50] LABS: Anion Gap 7.1 mmol/L (3-11); BUN 15 mg/dL (7-18); CO2 24.9 mmol/L (21.0-32.0); CREATININE 1.1 mg/dL (0.70-1.30); Chloride 104 mmol/L (98-107); Glucose 221 mg/dL (74-106); Potassium 3.7 mmol/L (3.5-5.1); Sodium 136 mmol/L (136-145)
[2021-09-08 11:05] LABS: Hemoglobin A1C 7.7 % (<5.7)
--- NOTE | 2021-09-08 14:41 | NUR.NOTE ---
Report given to JESS Agosto on Med/Surg. COMMERCIAL REAL ESTATE MANAGER assists Med/web design specialist place patient in a wheelchair so he can be taken to Med/Surg room 225.Nursing Note:
[2021-09-08] MEDS: Pravastatin 40 MG TAB PO (21:25)
[2021-09-08] MEDS: Insulin Glargine 300 UNITS/3 ML PEN 10 UNITS SC (21:41)
[2021-09-09] VITALS (7 sets, daily range): BP systolic 145–169; BP diastolic 72–85; PULSE 70–79; RESP 14–22; TEMP 36.9–38.9; O2SAT 97–98
[2021-09-09] MEDS: Water,Injection,Sterile 10 ML VIAL ×2 (00:06→00:07)
[2021-09-09] MEDS: VANCOMYCIN 1,000 MG in Normal Saline 250 ML 166.6666 MG IVPB (00:07)
[2021-09-09] MEDS: IMIPENEM/CILASTATIN 500 MG in Normal Saline 100 ML 200 MG IVPB ×2 (02:31→07:39)
[2021-09-09] MEDS: cefTRIAXone 1 GM/50 ML BAG IVPB (08:46)
[2021-09-09] MEDS: Atenolol 25 MG TAB 12.5 MG PO (08:47)
[2021-09-09] MEDS: Insulin Aspart 300 UNITS/3 ML PEN SC ×5 (08:47→16:55)
[2021-09-09] MEDS: Furosemide 20 MG TAB PO (08:48)
[2021-09-09] MEDS: Famotidine 20 MG TAB 40 MG PO (08:48)
--- NOTE | 2021-09-09 14:52 | PGE_ITS ---
Date of Service Date of service: 09/09/21 Time of Service: 13:52 Assessment and Plan Assessment and plan (1) Sepsis secondary to UTI: Status: Acute Assessment and plan: Initial blood cultures from 09/07 showed no growth but urine culture grew E. coli which was pansensitive except R. to ampicillin. He was admitted on Imipenem and Vancomycin however, I have downgraded to Ceftriaxone. He did get another dose of Vancomycin last night per Dr. Carrillo d/t recurrent fevers. He has rash over his right groin, proximal thigh, lower abdomen and extenting to his right axilla. I believe this to be fungal d/t him being incontentnt of urine and probably lying in urine. He has hx of bioprosthetic aortic valve replacement and therefore low threshold should be kept for SBE. While his cognitive function has improved since admission he is still somewhat confused. He knows that he is in a hospital in [facility] and he knows that he lives on [address] in [place] [facility] w/ his Erin and that they have 6 kids but he could not tell me their names, he is not oriented to time/date/year nor could he tell me how long he has been . While he had chest xray and abdominal and pelvic CT he did not have any imaging of the brain. Although his blood cultures are negative, I am stil concernd for possible SBE and with the confusion he ought to have head CT w/o contrast and will get echo in the morning. I will order repeat random blood cultures tonight. No repeat cultures were done w/ his fever last night. Professional time spent interviewing and examining patient, discussion of goals of care with hospital team (care management, nursing and consulting professionals) was 30 minutes. (2) Tinea corporis: Status: Acute Assessment and plan: Agree with application of an antifungal cream along with a barrier ointment including a and D and zinc to promote healing. (3) Type 2 diabetes mellitus: Status: Acute Assessment and plan: currently on novolog sliding scale; I will add CHO coverage, and Lantus. hold metformin while inpatient (4) Hypertension: Status: Chronic Assessment and plan: patient has not needed any hypertensives since admission. However, Dr. Becker did reorder the patient's atenolol and lasix (5) Hypercholesteremia: Status: Chronic (6) S/P AVR (aortic valve replacement): Status: Chronic Assessment and plan: His AVR appears to be bioprosthetic based on exam and xray findings. I will check echo in the a.m. (7) CAD (coronary artery disease): Status: Chronic Assessment and plan: no ischemic pain and troponin were negative last night. EKG demonstrated normal sinus rhythm with no acute ischemic ST or T wave changes. (8) DVT prophylaxis: Status: Acute Assessment and plan: patient was not put on any DVT prophylaxis. There was some question as to whether or he is suppose to be on warfarin. The patient is followed by Oralia Bai from [facility]. I asked our pharmacist to see if she can get his home med list reconciled I have put him on enoxaparin 40 mg SC daily (9) Discharge planning issues: Status: Acute Assessment and plan: will ask P.T. and CM to evaluate prior to dc to see what his home health needs are Subjective Subjective Interval history since last seen: Patient awakens easily and answers to his name but can not sustain concentration when I ask him questions. When questioned as to how he is feeling, he says fine. when asked if he has any pain or any dyspnea or nausea he denies the same. He is able to recognize this as a hospital but only when I offer him several suggestions as to choices of buildings. He can not tell me the year/date but he can tell me where he lives and his 's name. Exam Narrative Exam Narrative: Patient is sleeping w/ TV on. He awakens easily. He is oriented to his name but not to circumstances of hospitalization nor date/year/month. skin over his face is dry and flakey Lungs are clear to auscultation Heart is regular rate and rhythm Abdomen is obese soft nontender Skin is with a diffuse red excoriated rash along his abdomen and right groin and upper thigh as well as his right lateral chest up to his axilla. From interviewing the patient sounds like he has been incontinent of urine and probably lying in his urine causing a fungal rash. frank cath draining clear yellow urine Objective Last Vital Signs Temp 37.4 C 09/09/21 07:41 Pulse 79 09/09/21 07:41 Resp 18 09/09/21 07:41 BP 150/72 H 09/09/21 07:41 Pulse Ox 98 09/09/21 07:41
[2021-09-09] MEDS: Acetaminophen 500 MG TAB PO (15:43)
[2021-09-09] MEDS: Enoxaparin 40 MG/0.4 ML SYR SC (15:43)
[2021-09-09] MEDS: VANCOMYCIN/WATER (PEG) 1.75 GM/350 ML BAG IVPB (17:10)
[2021-09-09] MEDS: Ciprofloxacin 0.3% 2.5 ML BTL OU ×2 (17:10→19:43)
[2021-09-09] MEDS: Pravastatin 40 MG TAB PO (19:42)
[2021-09-09] MEDS: Normal Saline Flush 10 ML SYR IVP (19:43)
[2021-09-09] MEDS: Insulin Glargine 300 UNITS/3 ML PEN 10 UNITS SC (21:31)
--- NOTE | 2021-09-10 | DI.CT_ITS ---
Exam(s) CT HEAD WO EXAM: CT HEAD WO CLINICAL HISTORY: Altered mental status. TECHNIQUE: Imaging Protocol: Axial computed tomography images with coronal and sagittal reformatted images were created and reviewed COMPARISON: No exams were available for comparison FINDINGS: Ventricles and Extra axial spaces: Normal in size and morphology for the patient's age. Hemorrhage: None. Cerebral parenchyma: Old left superior frontal infarct. Small old right frontal infarct. No acute infarct. Moderate atrophy. White matter changes consistent with small vessel disease. Midline shift: None. Brainstem/Cerebellum: Normal. Calvarium: Normal. Visualized Paranasal sinuses/Mastoids: Clear. IMPRESSION: Old bilateral frontal infarcts. No acute abnormality. RADIATION DOSE DELIVERED: 822.53mGy.cm Total DLP 822.53mGy.cm Total DLP DATA REPOSITORY: All CT scans at this facility are submitted to the National Radiology Data Registry (NRDR) Dose Index Registry (DIR) with the [employer] (ACR). RADIATION OPTIMIZATION: All CT scans at this facility use at least one of these dose optimization te chniques: automated exposure control; mA and/or kV adjustment per patient size (includes targeted exa ms where dose is matched to clinical indication); or iterative reconstruction.
[2021-09-10] MEDS: Ciprofloxacin 0.3% 2.5 ML BTL OU ×5 (00:05→20:30)
[2021-09-10 04:18] VITALS: BP 148/74; PULSE 72; RESP 15; TEMP 37.9; O2SAT 95
[2021-09-10 04:27] VITALS: TEMP 37.9
[2021-09-10] MEDS: Acetaminophen 500 MG TAB PO (04:27)
[2021-09-10 07:04] LABS: Abs Immature Grans 0.02 10^3/uL (0.0-0.06); Absolute Basophil Count 0.02 10^3/uL (0.0-0.2); Absolute Lymphocyte Count 0.64 10^3/uL (1.2-3.4); Absolute Monocyte Count 0.15 10^3/uL (0.1-0.8); Absolute Neutrophil Count 2.89 10^3/uL (1.2-6.7); Basophils % 0.5; Eosinophils % 5.1; HCT 33.9 % (40.0-50.0); HGB 11.4 g/dL (13.5-17.5); Immature Grans % 0.5; Lymphocytes % 16.3; MCH 32.7 pg (27.0-33.0); MCHC 33.6 % (32.0-36.0); MCV 97 fL (80-95); MPV 10.5 fL (8.0-11.0); Monocytes % 3.8; Neutrophils % 73.8; Platelet Count 192 10^3/uL (130-400); RBC 3.49 10^6/uL (4.36-5.78); RDW 12.8 % (11.8-14.1); RDW-SD 45.3 fL; WBC 3.92 10^3/uL (4.4-10.8)
[2021-09-10 07:31] LABS: ALT 25 U/L (16-63); AST 28 U/L (15-37); Albumin 2.5 g/dL (3.4-5.0); Alkaline Phosphatase 66 U/L (46-116); Anion Gap 9.6 mmol/L (3-11); BUN 13 mg/dL (7-18); Bilirubin, Total 0.4 mg/dL (0.2-1.0); C-Reactive Protein 10.51 mg/dL (0.0-0.3); CO2 23.4 mmol/L (21.0-32.0); Calcium 8.5 mg/dL (8.5-10.1); Chloride 105 mmol/L (98-107); Glucose 152 mg/dL (74-106); Potassium 3.5 mmol/L (3.5-5.1); Sodium 138 mmol/L (136-145); Total Protein 6.9 g/dL (6.4-8.2)
[2021-09-10 07:44] LABS: Procalcitonin 0.3 ng/mL
[2021-09-10] MEDS: Atenolol 25 MG TAB 12.5 MG PO (07:49)
[2021-09-10] MEDS: Enoxaparin 40 MG/0.4 ML SYR SC (07:49)
[2021-09-10] MEDS: cefTRIAXone 1 GM/50 ML BAG IVPB (07:50)
[2021-09-10] MEDS: Normal Saline Flush 10 ML SYR IVP (07:50)
[2021-09-10] MEDS: Famotidine 20 MG TAB 40 MG PO (07:50)
[2021-09-10] MEDS: Insulin Aspart 300 UNITS/3 ML PEN SC ×4 (08:12→11:57)
[2021-09-10 08:36] VITALS: BP 126/75; PULSE 70; RESP 20; TEMP 36.5; O2SAT 97
--- NOTE | 2021-09-10 10:05 | DI.US_ITS ---
APPROVED REPORT EXAM: Comprehensive 2D, Doppler, and color-flow Echocardiogram Patient Location: In-Patient Room/Bed: 225 Aluminizer: Malaika Kerr RDCS (AE) Indications: Evaluate AVR function, r/o endocarditis, Bioprosthetic aortic valve, CAD Other Information Study Quality: Adequate. Technically limited study due to inability to position patient exam done sup ine bedside,, body habitus. Conclusion Normal left ventricular wall thickness and chamber size. Estimated ejection fraction is 55%. Wall m otion is normal Normal right ventricular size and systolic function Both atria are normal in size There is a bioprosthetic aortic valve with appropriate gradients. There is no aortic regurgitation. Mildly thickened mitral leaflets. Mild mitral annular calcification. Mild mitral regurgitation Normal tricuspid valve with trace regurgitation. Estimated right ventricular systolic pressure is 27 mmHg No valvular vegetations identified Wall motion Left Ventricle The left ventricle is normal size. The left ventricular systolic function is normal. The left ventric ular ejection fraction is within the normal range. There is normal left ventricular wall thickness. T here is normal LV segmental wall motion. There is no ventricular septal defect visualized. Left ventr icular thrombus is present. LVEF is 55%. Right Ventricle The right ventricle is normal size. The right ventricular systolic function is normal. The RVSP is 27 .4mmHg. Atria The left atrium size is normal. The right atrium size is normal. The interatrial septum is intact wit h no evidence for an atrial septal defect. Saline bubble contrast intravenous injection demonstrates PFO. Saline bubble contrast intravenous injection does not demonstrate PFO. Saline bubble contrast in travenous injection is inconclusive due to image quality. Interatrial septum is intact without eviden ce of ASD or PFO. Interatrial septum not well visualized. Small PFO is noted. Possible PFO is noted. Secundum atrial septal defect is present. Aortic Valve There is no aortic valvular stenosis. No aortic regurgitation is present. There is no aortic valvular vegetation. Bioprosthetic aortic valve is present. Mitral Valve Mitral valve leaflets are mildly thickened. Mild mitral annular calcification. No evidence of mitral valve stenosis. Mild mitral regurgitation. There is no evidence of mitral valve vegetations. Tricuspid Valve The tricuspid valve is normal in structure. There is no tricuspid valve stenosis. Trace tricuspid reg urgitation. There is no tricuspid valve vegetations. Pulmonic Valve The pulmonary valve is normal in structure. There is no pulmonic valvular stenosis. There is no pulmo shelbi valvular regurgitation. There is no pulmonic valve vegetations. Great Vessels The aortic root is normal in size. The ascending aorta is normal in size. IVC is normal in size and c ollapses >50% with inspiration. Pericardium There is no pericardial effusion. 2D Dimensions IVSD d PLAX 1.10 cm M: 0.6-1.2 LV Vol A2C d MOD 128.0 mL LVPW d PLAX 1.10 cm M: 0.6 - 1.2 LV Vol A4C d MOD 113.9 mL LVID d PLAX 4.56 cm M: 4.2 - 5.8 LA vol/ BSA A2C s A-L 19.0 mL/m2 LVDs 3.15 cm M: 2.5 - 4.0 LA vol/ BSA A4C s A-L 35.0 mL/m2 Ao Root d 2.41 cm M: 3.1 - 3.7 LA Vol/ BSA Biplane s A-L 29.7 mL/m2 RA Area A4C 20.94 cm2 LA Area A4C s MOD 23.66 cm2 RA Vol/ BSA A4C s A-L 27.3 mL/m2 LA Area A2C s MOD 15.17 cm2 Ao Asc Diam d 3.53 cm M: 2.6 - 3.4 LV EF A4C MOD 55.6 % LV EF Teichholz 57.7 % LV EF A2C MOD 55.1 % LVEF (Reddy's) 52.99 % M: 52 - 72 LV EF Biplane MOD 53.0 % LV Volume 87.47 mL M: 62 - 150 SV 64.33 mL LV Volume Index 38.70 mL/m2 M: 34 - 74 SV Index 28.37 mL/m2 LV Vol Biplane MOD 121.4 mL FS 30.20 % M-Mode TAPSE 1.36 cm (M/F) >1.7 LV Diastology MV E' medial 0.055 (>0.07 m/s) E/A Ratio 1.2 LV E/e MED 14.40 (<14) MV E Vmax 0.79 (0.4-1.3 m/s) MV E' lateral 0.072 (>0.1 m/s) MV A Vmax 0.65 (0.4-1.3 m/s) LV E/e LAT 10.95 (<14) MV E/A Ratio 1.18 MV E/E' medial 14.42 MV E/E' lateral 10.98 Aortic Valve LVOT Area 3.12 cm2 AoV Area Vmax 2.59 cm2 LVOT Vmax 1.29 m/s AoV Area/ BSA (Vmax) 1.14 cm2/m2 LVOT Mean Vimal. 0.86 m/s KHADIJAH Mean Vimal. 2.47 cm2 LVOT Peak Grad 6.6 mmHg KHADIJAH Mean Vimal. Index 1.09 cm2/m2 LVOT Mean Grad 3.6 mmHg LVOT VTI 0.264 m LVOT Diam s 1.95 cm AoV Vmax 1.55 m/s Velocity Ratio 0.83 AoV Mean Vimal. 1.09 m/s AoV Peak Grad 9.6 mmHg LVOT SV 82.37 mL AoV Mean Grad 5.3 mmHg AoV VTI 0.284 m AoV Area VTI 2.90 cm2 AoV Area/ BSA (VTI) 1.28 cm/m2 Mitral Valve MV DT 218 (160-240 msec) MV PHT 63 msec MV Area PHT 3.48 cm2 MV VTI 0.318 m MV Area VTI 2.59 (4.0-6.0 cm2) Pulmonary Valve PV Vmax 0.98 (0.5-1.5 m/s) RVOT Peak Gr. 1.19 mmHg PV Peak Grad 3.8 mmHg RVOT Mean Gr. 0.55 mmHg PV Mean Grad 2.3 mmHg RVOT VTI 0.104 m PV VTI 0.211 m RVOT Vmax 0.54 m/s Tricuspid Valve TR Peak Grad 24.3 mmHg TR Vmax 2.47 m/s RA Pressure 3.00 mmHg RVSP (TR) 27.4 mmHg
[2021-09-10 10:36] LABS: Source Nasal/Nares
--- NOTE | 2021-09-10 10:55 | W.UROLOGYCON ---
Date of service: 09/10/21 Time of Service: 09:55 Assessment and Plan Assessment and plan (1) Sepsis secondary to UTI: Status: Acute (2) Rash: Status: Acute Assessment and plan: I am not exactly sure what his baseline voiding symptoms might be, but I would suggest leaving a Andres catheter in place until his skin heals. We can then remove his catheter and get a better handle on his voiding symptoms. The patient does not recall ever having any type of medical or surgical treatment for his voiding. History of Present Illness History of Present Illness Chief Complaint: UTI Narrative: This is a 76-year-old gentleman who is currently hospitalized with an E. coli urinary tract infection and possible urosepsis. I have been asked to see him to arrange for follow-up regarding his voiding dysfunction. I do not have many records for evaluation. The patient tells me he does not really see a primary care provider. The last record I can find in the [facility] medical records was from 2016. The patient tells me that he has a long history of enuresis. He does not recall any prior urinary tract infections or any previous urologic surgery. It is difficult to tell what his baseline voiding symptoms might be. Currently has an indwelling Andres catheter that was placed here at the hospital. 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 Aortic valve replacement 04/2013 b. left THR 10/04/2013 c. Left TKR 6-7 years ago Hypertension (Chronic) Medical History BPH (benign prostatic hyperplasia) CHF (congestive heart failure) Diabetes Dizziness and giddiness GERD (gastroesophageal reflux disease) HLD (hyperlipidemia) Hyperglycemia Neuropathy Obesity Psoriasis Urinary incontinence Surgical History H/O hernia repair Hx of CABG S/P appendectomy S/P knee replacement Social History Smoking/Tobacco Use Status: Former Tobacco Use Smoking risk assessment performed?: Yes Drug use: Never Substance use type: does not use Do you feel safe at home: Yes Do you feel safe in your relationship?: Yes Exam Narrative Exam Narrative: He appears chronically ill. He does not appear septic or toxic at this time. His vital signs are documented elsewhere His Andres catheter is draining clear urine His pelvic skin is excoriated and covered with ointment He is awake and alert Results Last Vital Signs Temp 36.5 C 09/10/21 08:36 Pulse 70 09/10/21 08:36 Resp 20 09/10/21 08:36 BP 126/75 09/10/21 08:36 Pulse Ox 97 09/10/21 08:36 Labs Result diagrams: 09/13/21 05:55 09/13/21 12:35 Labs: Laboratory Results - last 24 hr 09/10/21 09/10/21 09/10/21 06:50 06:50 06:50 WBC 3.92 L RBC 3.49 L Hgb 11.4 L Hct 33.9 L MCV 97 H MCH 32.7 MCHC 33.6 RDW 12.8 Plt Count 192 MPV 10.5 Immature Gran % 0.5 Neutrophils % 73.8 Lymphocytes % 16.3 Monocytes % 3.8 Eosinophils % 5.1 Basophils % 0.5 Nucleated RBC % 0.0 Absolute Neutrophils 2.89 Absolute Lymphocytes 0.64 L Absolute Monocytes 0.15 Absolute Eosinophils 0.20 Absolute Basophils 0.02 Sodium 138 Potassium 3.5 Chloride 105 Carbon Dioxide 23.4 Anion Gap 9.6 BUN 13 Creatinine 1.0 Estimated GFR/1.73 m2 >= 60.00 Glucose 152 H Calcium 8.5 Total Bilirubin 0.4 AST 28 ALT 25 Alkaline Phosphatase 66 C-Reactive Protein 10.51 H Total Protein 6.9 Albumin 2.5 L Procalcitonin 0.3 COVID-19 Source 09/10/21 10:23 WBC RBC Hgb Hct MCV MCH MCHC RDW Plt Count MPV Immature Gran % Neutrophils % Lymphocytes % Monocytes % Eosinophils % Basophils % Nucleated RBC % Absolute Neutrophils Absolute Lymphocytes Absolute Monocytes Absolute Eosinophils Absolute Basophils Sodium Potassium Chloride Carbon Dioxide Anion Gap BUN Creatinine Estimated GFR/1.73 m2 Glucose Calcium Total Bilirubin AST ALT Alkaline Phosphatase C-Reactive Protein Total Protein Albumin Procalcitonin COVID-19 Source Nasal/Nares
[2021-09-10 11:26] LABS: COVID-19 PCR Negative (Negative)
[2021-09-10] MEDS: VANCOMYCIN/WATER (PEG) 1.25 GM/250 ML BAG IVPB (13:08)
[2021-09-10 15:00] VITALS: BP 149/79; PULSE 60; RESP 24; TEMP 36.4; O2SAT 98
--- NOTE | 2021-09-10 15:24 | CMPROGNOTE_ITS ---
- If Service Date Differs Date of service: 09/10/21 Time of Service: 15:25 Care Management Progress Note S/O: CM attempted family outreach to elicit mental status baseline observations, daughter's demographic information did not yield results (phone disconnected). Alvarez's primary number had a message stating voicemail had not been set up. CM continues to follow. A: 76 year old male admitted to [facility] 09/07/21 for UTI, Septicemia, AMS P: Alvarez will discharge home with no services when medically cleared by provider. He will follow up with his PCP and discharge plan of care as directed. He will be transported home via private vehicle by family when ready. CM will continue to follow.
--- NOTE | 2021-09-10 17:46 | W.PM.PROGNOT ---
Date of Service Date of service: 09/10/21 Time of Service: 16:46 Assessment and Plan Assessment and plan (1) Sepsis secondary to UTI: Status: Acute Assessment and plan: In setting of likely urinary retention, present on admission, due to E.Coli. Blood cx negative. Continue empiric ceftriaxone. No evidence of stones/obstructive uropathy. Andres catheter to be removed/VT attempted when rash healed. Appreciate urology consult. (2) Progressive dementia with uncertain etiology: Status: Acute Assessment and plan: Check B12. Consult neurology. ?clonus related to this process somehow. (3) Tinea corporis: Status: Acute Assessment and plan: Continue vitamin A/D, zinc, clotrimazole 1/3 ointment. (4) Type 2 diabetes mellitus: Status: Acute Assessment and plan: A1c 7.7. Continue SSI, carb consistent diet. Check B12 level. (5) Hypertension: Status: Chronic Assessment and plan: Continue home atenolol. Lasix on hold. (6) S/P AVR (aortic valve replacement): Status: Chronic Assessment and plan: Blood cx negative and echo w/o evidence of valvular vegetations. (7) DVT prophylaxis: Status: Acute Assessment and plan: Continue enoxaparin 40 mg SC daily (8) Discharge planning issues: Status: Acute Assessment and plan: PT/OT consulted. Will need placement. Subjective Subjective Interval history since last seen: Mr Farmer states that his heels are bothering him - especially his left one. He denies dizziness, chest pain, shortness of breath, nausea. We are not able to get a clear answer as to whether he drinks or used to from the patient. Exam Narrative Exam Narrative: General: Pleasant elderly male, A&Ox2 HEENT: EOMI, MMM Heart: RRR, no m/r/g Lungs: CTAB anteriorly Abdomen: soft, nontender, nondistended Extremities: L heel with evidence of erythema; no open wounds. 5-6 jerks of clonus in B ankles Objective Last Vital Signs Temp 36.4 C L 09/10/21 15:00 Pulse 60 09/10/21 15:00 Resp 24 09/10/21 15:00 BP 149/79 H 09/10/21 15:00 Pulse Ox 98 09/10/21 15:00 Laboratory Results - last 24 hr 0509/10/21 09/10/21 06:50 06:50 06:50 WBC 3.92 L RBC 3.49 L Hgb 11.4 L Hct 33.9 L MCV 97 H MCH 32.7 MCHC 33.6 RDW 12.8 Plt Count 192 MPV 10.5 Immature Gran % 0.5 Neutrophils % 73.8 Lymphocytes % 16.3 Monocytes % 3.8 Eosinophils % 5.1 Basophils % 0.5 Nucleated RBC % 0.0 Absolute Neutrophils 2.89 Absolute Lymphocytes 0.64 L Absolute Monocytes 0.15 Absolute Eosinophils 0.20 Absolute Basophils 0.02 Sodium 138 Potassium 3.5 Chloride 105 Carbon Dioxide 23.4 Anion Gap 9.6 BUN 13 Creatinine 1.0 Estimated GFR/1.73 m2 >= 60.00 Glucose 152 H Calcium 8.5 Total Bilirubin 0.4 AST 28 ALT 25 Alkaline Phosphatase 66 C-Reactive Protein 10.51 H Total Protein 6.9 Albumin 2.5 L Procalcitonin 0.3 COVID-19 Source SARS-CoV-2 (PCR) 09/10/21 10:23 WBC RBC Hgb Hct MCV MCH MCHC RDW Plt Count MPV Immature Gran % Neutrophils % Lymphocytes % Monocytes % Eosinophils % Basophils % Nucleated RBC % Absolute Neutrophils Absolute Lymphocytes Absolute Monocytes Absolute Eosinophils Absolute Basophils Sodium Potassium Chloride Carbon Dioxide Anion Gap BUN Creatinine Estimated GFR/1.73 m2 Glucose Calcium Total Bilirubin AST ALT Alkaline Phosphatase C-Reactive Protein Total Protein Albumin Procalcitonin COVID-19 Source Nasal/Nares SARS-CoV-2 (PCR) Negative
[2021-09-10 20:00] VITALS: BP 140/72; PULSE 70; RESP 16; TEMP 37; O2SAT 98
[2021-09-10] MEDS: Pravastatin 40 MG TAB PO (20:30)
[2021-09-10 22:48] VITALS: BP 138/71; PULSE 72; RESP 16; TEMP 37.4; O2SAT 99
[2021-09-10] MEDS: Insulin Glargine 300 UNITS/3 ML PEN 10 UNITS SC (22:52)
--- NOTE | 2021-09-11 | DI.MRI_ITS ---
Exam(s) MR ANGIO BRAIN WO EXAM: MR ANGIO BRAIN WO CLINICAL HISTORY: CVA. TECHNIQUE: Multiplanar multisequence MRI was performed. COMPARISON: CT CT HEAD WO from 09/10/2021 MR MR BRAIN WO from 09/11/2021 FINDINGS: MR angiography of the region of [id number] was performed utilizing 3D [id number] protocol. Visualized portions extracranial internal carotid arteries appear intact. There is right dominant ba silar circulation. 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 This is a relatively co mmon anatomic variant. Remainder of the basilar artery and posterior cerebral arteries and branches appear intact. Intracranial internal carotid arteries appear intact bilaterally. The left middle cerebral artery an d major branches appear intact. The right anterior cerebral artery is supplied across the anterior c ommunicating artery from the left and the anterior cerebral arteries and major branches appear intact . On the right, there is narrowing of a bifurcated branch vessel of the middle cerebral artery, this ap pears to reconstitute the on the stenotic segment, the exact degree of stenosis is difficult to inter pret due to the limitations of the study technically . IMPRESSION: Probable stenosis of a bifurcated branch of the right middle cerebral artery as described above. 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 DATA REPOSITORY:
--- NOTE | 2021-09-11 | DI.MRI_ITS ---
Exam(s) MR ANGIO NECK WO EXAM: MR ANGIO NECK WO CLINICAL HISTORY: CVA. TECHNIQUE: Multiplanar multisequence MRI was performed. COMPARISON: No exams were available for comparison FINDINGS: MR angiography of the cervical region was performed utilizing 2D [id number] and 3D [id number] acquisition. There is significant motion artifact which limits interpretation. The common and inte rnal carotid arteries appear patent throughout. There is a right dominant vertebral circulation with patent right and left vertebral arteries. IMPRESSION: Limited scan, no evidence of occlusion. DATA REPOSITORY:
--- NOTE | 2021-09-11 | DI.MRI_ITS ---
Exam(s) MR BRAIN WO EXAM: MR BRAIN WO CLINICAL HISTORY: old CVAs on CT, AMS TECHNIQUE: Multiplanar multisequence MRI of the brain was performed. COMPARISON: MR MR ANGIO BRAIN WO from 09/11/2021 FINDINGS: There is marked generalized cerebral atrophy and there are areas of abnormal signal in periventricul ar white matter consistent with microvascular ischemic changes. There appear to be old bilateral fro ntal lobe infarcts, left greater than right.. No signal abnormality identified in the brain. The orbital and temporal bone structures appear intact as does the pituitary. Diffusion weighted imaging shows no evidence of acute or subacute infarction. Susceptibility weighted imaging shows no evidence of intracranial hemorrhage. Please see report for MR angiography of the [place] of will assess, also obtained today period. IMPRESSION: No evidence of acute intracranial process. No evidence of acute or subacute infarction.. DATA REPOSITORY:
[2021-09-11] MEDS: VANCOMYCIN/WATER (PEG) 1.25 GM/250 ML BAG IVPB ×3 (01:00→23:17)
[2021-09-11] MEDS: Ciprofloxacin 0.3% 2.5 ML BTL OU ×3 (01:00→12:26)
[2021-09-11] MEDS: Normal Saline Flush 10 ML SYR IVP ×2 (01:01→23:17)
[2021-09-11] MEDS: Normal Saline 500 ML 30 ML IV (01:01)
[2021-09-11 03:52] VITALS: BP 154/83; PULSE 61; RESP 15; TEMP 36.7; O2SAT 96
[2021-09-11 06:39] LABS: Abs Immature Grans 0.02 10^3/uL (0.0-0.06); Absolute Basophil Count 0.02 10^3/uL (0.0-0.2); Absolute Eosinophil Count 0.49 10^3/uL (0.0-0.7); Absolute Lymphocyte Count 0.88 10^3/uL (1.2-3.4); Absolute Monocyte Count 0.17 10^3/uL (0.1-0.8); Absolute Neutrophil Count 2.32 10^3/uL (1.2-6.7); Basophils % 0.5; Eosinophils % 12.6; HCT 34.2 % (40.0-50.0); HGB 11.4 g/dL (13.5-17.5); Immature Grans % 0.5; Lymphocytes % 22.6; MCH 32.7 pg (27.0-33.0); MCHC 33.3 % (32.0-36.0); MCV 98 fL (80-95); MPV 10.8 fL (8.0-11.0); Monocytes % 4.4; Neutrophils % 59.4; Platelet Count 197 10^3/uL (130-400); RBC 3.49 10^6/uL (4.36-5.78); RDW 12.8 % (11.8-14.1); RDW-SD 46.1 fL
[2021-09-11 06:52] LABS: Anion Gap 7.8 mmol/L (3-11); BUN 15 mg/dL (7-18); C-Reactive Protein 4.96 mg/dL (0.0-0.3); CO2 24.2 mmol/L (21.0-32.0); Calcium 8.4 mg/dL (8.5-10.1); Chloride 107 mmol/L (98-107); Glucose 169 mg/dL (74-106); Magnesium 1.9 mg/dL (1.8-2.4); Potassium 3.6 mmol/L (3.5-5.1); Sodium 139 mmol/L (136-145)
[2021-09-11 07:20] LABS: Vitamin B12 696 pg/mL (193-986)
[2021-09-11 07:43] VITALS: BP 152/78; PULSE 63; RESP 18; TEMP 36.8; O2SAT 96
[2021-09-11] MEDS: cefTRIAXone 1 GM/50 ML BAG IVPB (08:54)
[2021-09-11] MEDS: Insulin Aspart 300 UNITS/3 ML PEN SC ×6 (08:54→17:26)
[2021-09-11] MEDS: Enoxaparin 40 MG/0.4 ML SYR SC (08:54)
[2021-09-11] MEDS: Famotidine 20 MG TAB 40 MG PO (08:55)
[2021-09-11] MEDS: Atenolol 25 MG TAB 12.5 MG PO (08:56)
--- NOTE | 2021-09-11 09:46 | W.NEUROCONSU ---
Date of service: 09/11/21 Time of Service: 08:46 Assessment and Plan Assessment and plan (1) Memory changes: Status: Acute (2) Stroke: Status: Chronic Assessment and plan: #1. Clonus. None seen today. 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 #2. Prior strokes. Seen on CT head yesterday. These appear old. However, given sepsis and prosthetic valve, I recommend a brain MRI w/o to get more information on age and location/etiology. Consider MRA head/neck vs CUS as further work-up. Would also recommend re-starting telemetry with consideration for extended monitoring at discharge pending other results. A1c 7.7. Please check a lipid panel. He should be started on aspirin 81mg daily in the meantime. On exam, he has an element of expressive aphasia/anomia. This may be related to prior strokes +/- complicated from acute illness or part of a neurodegenerative process. Would recommend ST for language/cognitive evaluation. #3. Memory impairment. Per family, noted decline preceding hospitalization. B12 is normal. Please check a TSH. Will perform more extensive cognitive testing as an outpatient when not acutely ill/recovering from acute illness. He should follow-up in neurology clinic in 4-6 weeks. History of Present Illness History of Present Illness Chief Complaint: clonus and memory changes Narrative: Handedness: right. Mr. Farmer is a 76 year-old man with HTN, HLD, DM2, heart disease s/p CABG x2 and aortic valve replacement in May 2013, BPH, and GERD. Mr. Farmer was hospitalized 09/07/21 with urosepsis (E.coli) and extensive fungal rash. Yesterday, he was noted to have clonus on hospitalist examination. Erin also reported cognitive decline preceding current hospitalization. She was not available for me to get more details from. Mr. Farmer does not believe he has had any memory issues. 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 He completed 1.5 years of college before dropping out. He is unable to recall how long he has been but notes they had 6 kids. He denies any history of stroke. He has no prior head imaging in our system or [facility] for comparison. He believes he takes an aspirin daily at home but isn't sure and tells me to ask his . He has undergone the work-up as below: -CTH (09/10/21): old bilateral L>R frontal infarcts. I reviewed these images personally and this is my personal interpretation. -TTE (09/10/21): EF 55%, no wall motion abnormalities. LA normal. Prosthetic arotic valve. -Labs (August 2021): A1c 7.7, B12 696 PFSH All Active Problems (Updated 09/11/21 @ 10:15 by Amita Valentine MD) Stroke (Chronic) Memory changes (Acute) Progressive dementia with uncertain etiology (Acute) Tinea corporis (Acute) Mobility impaired (Acute) Type 2 diabetes mellitus (Acute) Discharge planning issues (Acute) DVT prophylaxis (Acute) Rash (Acute) Sepsis secondary to UTI (Acute) Hypercholesteremia (Chronic) CAD (coronary artery disease) (Chronic) S/P AVR (aortic valve replacement) (Chronic) 04/2013 H/O surgical procedure (Chronic) a. Aortic valve replacement 04/2013 b. left THR 10/04/2013 c. Left TKR 6-7 years ago Hypertension (Chronic) Medical History BPH (benign prostatic hyperplasia) CHF (congestive heart failure) Diabetes Dizziness and giddiness GERD (gastroesophageal reflux disease) HLD (hyperlipidemia) Hyperglycemia Neuropathy Obesity Psoriasis Urinary incontinence Surgical History H/O hernia repair Hx of CABG S/P appendectomy S/P knee replacement Social History Smoking/Tobacco Use Status: Former Tobacco Use Smoking risk assessment performed?: Yes Drug use: Never Substance use type: does not use Do you feel safe at home: Yes Do you feel safe in your relationship?: Yes Visit Medication and Allergies Active Medications Generic Name Dose Route Start Last Admin Trade Name Freq PRN Reason Stop Dose Admin Acetaminophen 500 mg 09/08/21 12:04 09/10/21 04:27 Acetaminophen 500 Mg Tab PO 500 mg TID PRN PRN Administration Pain or Fever Atenolol 12.5 mg 09/08/21 08:30 09/11/21 08:56 Atenolol 25 Mg Tab PO 12.5 mg DAILY JOHN Administration Ciprofloxacin HCl 0 ml 09/09/21 16:00 09/11/21 08:57 Ciprofloxacin 0.3% 2.5 Ml Btl OU 09/11/21 15:59 1 drp Q4H JOHN Administration Clotrimazole 60 gm/ Zinc Oxide 0 gm 09/08/21 14:00 09/11/21 08:57 60 gm/ Vitamin A/Vitamin D 60 TP 1 applicatio gm TID JOHN Administration Dextrose 0 gm 09/08/21 00:39 Glucose 40% Oral Solution 15 Gm/37.5 Gm Tube PO DIRECTED PRN Dextrose/Water 0 gm 09/08/21 00:39 Dextrose 50%-Water 25 Gm/50 Ml Syr IVP DIRECTED PRN Enoxaparin Sodium 40 mg 09/10/21 08:30 09/11/21 08:54 Enoxaparin 40 Mg/0.4 Ml Syr SC 40 mg DAILY JOHN Administration Famotidine 40 mg 09/08/21 08:30 09/11/21 08:55 Famotidine 20 Mg Tab PO 40 mg DAILY JOHN Administration Furosemide 20 mg 09/08/21 08:30 09/09/21 08:48 Furosemide 20 Mg Tab PO 20 mg DAILY [facility] Administration Sodium Chloride 500 mls @ 0 mls/hr 09/07/21 20:23 09/11/21 03:48 Saline 500ml Bag IV 0 mls/hr PRN PRN Infusion As Directed Ceftriaxone Sodium/Dextrose 1 gm in 50 mls @ 100 mls/hr 09/09/21 08:30 09/11/21 08:54 Rocephin IVPB 100 mls/hr Q24H [facility] Administration Vancomycin/PEG/NADA/Lysine/Water 1.25 gm in 250 mls @ 125 mls/hr 09/10/21 12:00 09/11/21 03:05 Vancocin Injection IVPB Infused Q12H [facility] Infusion IV Miscellaneous Supplies 1 each 09/07/21 20:30 Iv Access IV DIRECTED [facility] Insulin Aspart 0 units 09/08/21 08:00 09/11/21 08:54 Insulin Aspart 300 Units/3 Ml Pen SC 2 unit 0800,1200,1700 [facility] Administration Protocol Insulin Aspart 0 units 09/08/21 17:00 09/11/21 08:55 Insulin Aspart 300 Units/3 Ml Pen SC 1 units 0800,1200,1700 JOHN Administration Insulin Glargine 10 units 09/08/21 22:00 09/10/21 22:52 Insulin Glargine 300 Units/3 Ml Pen SC 10 unit HS JOHN Administration Polyethylene Glycol 17 gm 09/08/21 00:35 Polyethylene Glycol 3350 17 Gm Packet PO BID PRN PRN Pravastatin Sodium 40 mg 09/08/21 20:00 09/10/21 20:30 Pravastatin 40 Mg Tab PO 40 mg QPM JOHN Administration Sennosides 1 tab 09/08/21 00:35 Senna Tab PO DAILY PRN PRN Sodium Chloride 0 ml 09/07/21 20:23 09/11/21 01:01 Normal Saline Flush 10 Ml Syr IVP 10 ml PRN PRN Administration Allergies No Known Allergies Allergy (Unverified 02/25/14 20:32) Exam Narrative Exam Narrative: Physical Exam: Testing limited due to contact precautions Constitutional: Patient of apparent stated age, well nourished, well developed, no acute distress Neck: Supple, no meningismus CV: RRR Resp: CTAB Abd: Soft, nontender, nondistended Extrem: no edema Neuro: MS/Language/Speech: Alert, oriented to season and month as well as town and room # (did not know year, hospital name), naming errors noted with intact repetition; able to follow 2-step command across the midline but not 3-step; no dysarthria CN: PERRL, EOMI, visual pal full, trigeminal sensation intact, slight R nasolabial fold flattening, hearing intact, palate elevates symmetrically, tongue protrudes midline, SCM and trap strength intact Motor: Normal bulk and tone. FMM reduced bilaterally R>L, no pronator drift. 5/5 strength in bilateral upper and lower extremities. Sensation: Intact to light touch and PP throughout Reflexes: hyporeflexic throughout with downgoing toes; no clonus; +grasp bilaterally; neg Springer/Tromner bilaterally Coordination: Finger to nose performed without dysmetria Gait: not tested Results Last Vital Signs Temp 98.2 F 09/11/21 07:43 Pulse 63 09/11/21 07:43 Resp 18 09/11/21 07:43 BP 152/78 H 09/11/21 07:43 Pulse Ox 96 09/11/21 07:43 Labs Result diagrams: 09/11/21 05:44 09/11/21 05:44 Labs: Laboratory Results - last 24 hr 09/10/21 09/11/21 09/11/21 10:23 05:44 05:44 WBC 3.90 L RBC 3.49 L Hgb 11.4 L Hct 34.2 L MCV 98 H MCH 32.7 MCHC 33.3 RDW 12.8 Plt Count 197 MPV 10.8 Immature Gran % 0.5 Neutrophils % 59.4 Lymphocytes % 22.6 Monocytes % 4.4 Eosinophils % 12.6 Basophils % 0.5 Nucleated RBC % 0.0 Absolute Neutrophils 2.32 Absolute Lymphocytes 0.88 L Absolute Monocytes 0.17 Absolute Eosinophils 0.49 Absolute Basophils 0.02 Sodium 139 Potassium 3.6 Chloride 107 Carbon Dioxide 24.2 Anion Gap 7.8 BUN 15 Creatinine 1.0 Estimated GFR/1.73 m2 >= 60.00 Glucose 169 H Calcium 8.4 L Magnesium 1.9 C-Reactive Protein 4.96 H Vitamin B12 COVID-19 Source Nasal/Nares SARS-CoV-2 (PCR) Negative 09/11/21 05:44 WBC RBC Hgb Hct MCV MCH MCHC RDW Plt Count MPV Immature Gran % Neutrophils % Lymphocytes % Monocytes % Eosinophils % Basophils % Nucleated RBC % Absolute Neutrophils Absolute Lymphocytes Absolute Monocytes Absolute Eosinophils Absolute Basophils Sodium Potassium Chloride Carbon Dioxide Anion Gap BUN Creatinine Estimated GFR/1.73 m2 Glucose Calcium Magnesium C-Reactive Protein Vitamin B12 696 COVID-19 Source SARS-CoV-2 (PCR)
[2021-09-11 11:04] LABS: Lab Add On Test DONE
[2021-09-11 11:26] LABS: TSH 2.25 uIU/mL (0.36-3.74)
[2021-09-11 12:25] VITALS: BP 125/62; PULSE 54; RESP 17; TEMP 36.3; O2SAT 99
[2021-09-11] MEDS: Aspirin E.C. 81 MG TABEC PO (12:25)
--- NOTE | 2021-09-11 13:00 | W.SPSTE ---
Date of service: 09/11/21 Time of Service: 13:00 Subjective Speech Language Pathology Evaluation - Cognitive/Communication - Inpatient Patient referred for cognitive-communication evaluation from Dr. Valentine (neurology) given noted difficulty with verbal expression and question of aphasic behaviors as well as memory changes. HPI: Patient is 76 y/o M with history of DMII, HTN, CAD s/P AVR,CHF, CABG, HLD; admitted 09/07 with sepsis 2/2 UTI and fungal rash. He had a history of cognitive changes prior to this hospitalization, per family report. Neurology was consulted due to question r/t observed clonus, and neurology noted difficulty with verbal expression and question of aphasic communication. Imaging interpreted by neurology revealed likely prior (remote) frontal (L>R infarcts). SUBJECTIVE: Patient contacted in his room, Erin present. Patient without insight into cognitive deficits, but is agreeable to participate in evaluation.He is able to recall something new about strokes which was news to me. His , Erin reports he has a hard time with attention span and short-term memory, primarily; difficulty formulating long sentences because he forgets where he started or what word he was looking for She also reports he has a hard time answering questions at home because he can't remember long enough to provide an answer. She tries to ask Y/N questions to provide choices (such as lunch menu) but then he will say yes to everything. We discussed some strategies as provided in recommendations section. Erin shares that the patient is not independent with any iADL's due to cognitive status. All Active Problems?(Updated 09/08/21 @ 00:03 by Tab Becker) Mobility impaired (Acute) Type 2 diabetes mellitus (Acute) Discharge planning issues (Acute) DVT prophylaxis (Acute) Rash (Acute) Sepsis secondary to UTI (Acute) Hypercholesteremia (Chronic) CAD (coronary artery disease) (Chronic) S/P AVR (aortic valve replacement) (Chronic) 04/2013H/O surgical procedure (Chronic) a.? Aortic valve replacement 04/2013 b.? left THR 10/04/2013 c.? Left TKR 6-7 years ago Hypertension (Chronic) Medical History?(Updated 09/08/21 @ 00:03 by Tab Becker) BPH (benign prostatic hyperplasia) CHF (congestive heart failure) Diabetes Dizziness and giddiness GERD (gastroesophageal reflux disease) HLD (hyperlipidemia) Hyperglycemia Neuropathy Obesity Psoriasis Urinary incontinence Surgical History?(Updated 08/29/21 @ 09:47 by Lyndsey Solorio) H/O hernia repair Hx of CABG S/P appendectomy S/P knee replacement Objective Objective Informal/Observational: Orientation: Month: + Day: - Day of week: - Year: - Self: + Situation: +/- (partial) City: + State: + Building: + (hospital) Cognitive-Linguistic Observations : Patient's utterances largely grammatical, without overt paraphasias. Patient with some word-finding vs sentence-construction difficulties, and frequently with delayed responses and/or inability to fully answer questions or follow instructions, Speech: No overt evidence of dysarthria, patient is 100% intelligible. SCREENING TOOLS SLUMS: 01/18 (dementia range) Errors in: Orientation, recalling objects, word/math problems, verbal fluency/generative naming, reverse digit span (limit 2), clock drawing Western Aphasia Battery - Bedside (Screening Tool) Content: /10 Fluency: /10 Auditory Verbal Comprehension: Y/N Questions: / Sequential commands: /10 Repetition: 9.5/10 Object Namin/10 BEDSIDE APHASIA SCORE: 80.83 Assessment Family/caregiver report and cognitive/communication screening tools this date indicate primarily short term memory and significantly decreased attention capacity, leading to difficulty with other cognitive and communication functioning as well (problem-solving, insight, following/retaining instructions, etc). Suspect any word-finding or language specific impairments are either secondary to or overshadowed by attention-capacity and short-term/working memory limitations given patient's communication vs cognitive profile. Patient's current cognitive status likely necessitates total or near-total assist with iADL's. Per caregiver report, findings of todays assessment are largely consistent with his baseline. If family is unable to meet his physical care needs at home, certainly would recommend he continue to receive SECURITY SPECIALIST services and/or memory care at discharge location for continued family/caregiver training. Provided education to spouse Erin regarding findings and initial strategies to address cognitive-communication function in everyday situations, role of SECURITY SPECIALIST services and what we offer to patients/families dealing with vascular or other dementia (e.g., cognitive optimization, compensatory strategies, memory aids). If patient remains hospitalized, he may benefit from continued SECURITY SPECIALIST services to provide memory aids and further family/caregiver education re: cognitive strategies. Recommendations: Utilize memory aids whenever possible to improve patient's independence and orientation. When soliciting information from patient, use Y/N questions, one at a time. Provide instructions one step at a time Provide visual and written reinforcement of information whenever possible to reduce auditory working memory demands. Providing visual choices (e.g., milk vs lemonade) in addition to verbal to compensate for short term/working memory limitations will help increase agency and frustration at home/with family. Plan SECURITY SPECIALIST to follow up with patient/family 1-2x total, as able, to provide additional education/training r/t cognitive-communication function and strategies. Short Term Goals: Patient/family will verbalize understanding of education/rationale related to, or trial use of, memory aids/cognitive-communication strategies as recommended above x 1-2 sessions. Time spent: 50 min [facility] Code: 53843 Coding
--- NOTE | 2021-09-11 14:58 | IN_ITS ---
Date of service: 09/11/21 Time of Service: 14:58 PT Notes Visit Reasons: UTI, Septicemia Physical Therapy Inpatient Initial Evaluation Date: 09/11/2021 Referring Doctor: Genevieve Da Silva MD PT Orders: PT CONSULT: Limited ability Precautions: Fall. Standard. Activity as tolerated. Patient Profile/Admitting Diagnosis: Alvarez is a 76-year-old male with past medical history significant for dementia and previous CVA with admitting diagnoses of sepsis secondary to UTI, progressive dementia with uncertain etiology, type II DM, HTN, and s/p AVR. PMHX: All Active Problems?(Updated 09/08/21 @ 00:03 by Tab Becker) Mobility impaired (Acute) Type 2 diabetes mellitus (Acute) Discharge planning issues (Acute) DVT prophylaxis (Acute) Rash (Acute) Sepsis secondary to UTI (Acute) Hypercholesteremia (Chronic) CAD (coronary artery disease) (Chronic) S/P AVR (aortic valve replacement) (Chronic) 04/2013 H/O surgical procedure (Chronic) a.? Aortic valve replacement 04/2013 b.? left THR 10/04/2013 c.? Left TKR 6-7 years agoHypertension (Chronic) Medical History?(Updated 09/08/21 @ 00:03 by Tab Becker) BPH (benign prostatic hyperplasia) CHF (congestive heart failure) Diabetes Dizziness and giddiness GERD (gastroesophageal reflux disease) HLD (hyperlipidemia) Hyperglycemia Neuropathy Obesity Psoriasis Urinary incontinence Surgical History?(Updated 08/29/21 @ 09:47 by Lyndsey Solorio) H/O hernia repair Hx of CABG S/P appendectomy S/P knee replacement Social History/Home Situation: Unable to extract information from patient due to dementia. Per ISAIAH Connor's notes: Alvarez lives in [facility] with his , their son Quan, [id number], and 4 grandkids.? Alvarez is retired but formerly worked at [employer] in the [place].? Alvarez and his have 6 children, 3 sons and 3 daughters, all of whom live in [place] with the exception of one son who resides in [place].? Alvarez enjoys watching television and especially likes the [employer] television series. Per , patients walked on his own with a walker. Equipment Owned/DME: [facility] Subjective: Agreeable to being assessed on how he moves and how strong he is. Complains about how itchy his back is. Unsure of whether he needs to do bowel movement or not. Confused about whether to turn on mute of the TV remote or not as he states that sometimes muting the TV helps with understanding htr movie. Objective: General Observation: Pleasantly confused. Seated on bedside recliner. Andres catheter in palce. IV in R UE. No tremors seen at rest. Leaning onto R side but frequently attempts to correct position so he could try sit upright. Mental Status: Alert, only oriented to self. Verbal responses delayed, needs repetition of instruction/question before he responds or executes movement. Pain: None reported ROM: Right Upper Extremity: Shoulder Flexion allows up to 100 degrees. Shoulder abduction allows up to 90 degrees. Elbow flexion WFL. Wrist flexion WFL. F unctional opening and closing of hand WFL. Left Upper Extremity: SShoulder Flexion allows up to 100 degrees. Shoulder abduction allows up to 90 degrees. Elbow flexion WFL. Wrist flexion WFL. Functional opening and closing of hand WFL. Right Lower Extremity: Hip flexion lacks the last 25 degrees of AROM. Hip abduction about 10 degrees. Knee flexion WFL. Ankle dorsiflexion to neutral only. Ankle plantarflexion WFL. Left Lower Extremity: Hip flexion lacks the last 25 degrees of AROM. Hip abduction about 10 degrees. Knee flexion WFL. Ankle dorsiflexion to neutral only. Ankle plantarflexion WFL. Strength: Right Upper Extremity: Shoulder flexors 3-/5. Shoulder abductors 3-/5. Elbow flexors 4-/5. Elbow extensors 4-/5. Filling Machine Set Up Mechanic strong. Left Upper Extremity: Shoulder flexors 3-/5. Shoulder abductors 3-/5. Elbow flexors 4-/5. Elbow extensors 4-/5. Filling Machine Set Up Mechanic strong. Right Lower Extremity: Hip flexors 3-/5. Hip abductors 3-/5. Knee flexors 4-/5. Knee extensors 4-/5. Ankle dorsiflexors 3-/5. Ankle plantarflexors 4-/5. Left Lower Extremity: Hip flexors 3-/5. Hip abductors 3-/5. Knee flexors 4-/5. Knee extensors 4-/5. Ankle dorsiflexors 3-/5. Ankle plantarflexors 4-/5. Bed Mobility/Transfers: Sit to stand with minimal assist of 2 Stand to sit with stand by assist of 2 Bed to reclining chair conatct guard assist of 2 Gait: Instructed patient with level surface ambulation of 5 steps onto commode +10 steps from commode back to bed requiring contact-guard assist of 2, ROSA Ambrose assisting for safety. Moderate to maximal verbal, tactile, and visual cueing done for safety and walker management. Balance: Static Sitting: Good Dynamic Sitting: Good Static Standing: Fair Dynamic Standing: Fair Special Tests: Mobility Limitations Standardized Measure [facility] AM-PAC 6 clicks Basic Mobility Inpatient Short Form: Raw Score: 12 CMS Score: 69% deficit Informed Consent/Education: /POA agreeable to working with PT while on admission. ASSESSMENT: 1. Discharge planning issues Poor safety awareness due to progressive cognition decline complicated by recent sepsis from UTI. Clonus only detected on the L ankle, none on R. Unable to perform rapid alternating movement despite visual and verbal cues. Motor and verbal responses delayed. No resting tremor observed at rest and with movement throughout session. Movement not fluid, appeared motoric with some freezing episodes during ambulation and transfer tasks needing multi-sensorial cueing. Will benefit from SNF palcement for continued rehabilitation and potential LTC placement due to progressive natire of cognitive decline. Patient presents with clinical signs and symptoms consistent with current/admitting diagnoses that have resulted to mobility limitations, gait instability, generalized weakness, and overall ADL decline as demonstrated by the following impairment level findings: 1. Decreased strength to B UE/LE major muscle groups 2. Impaired sitting/standing balance 3. Impaired activity tolerance 4. Limitation of joint range of motion in B shoulders and hips 5. Impaired cognition/impaired safety awareness Impairments are contributing to the following functional limitations: 1. Decline in bed mobility skills 2. Decline in transfer skills 3. Difficulty with ambulation without assistive device and physical assistance 4. Increased completion time for mobility ADL performance 5. Increased risk for falls Patient is assessed as a 82391 moderate complexity based on the following: History: 76-year-old male with past medical history as indicated above Examination: Demonstrable impairment in strength, balance, and mobility level with underlying impairments and functional limitations as exhibited above as well as deficit score of 69% utilizing the [facility] Mobility Inpatient Short Form Presentation: Evolving Decision Makin moderate complexity Goals: Goals X1 week 1. Supine-Sit supervision 2. Sit-Supine supervision 3. Sit-Stand supervision 4. Stand-Sit supervision with FWW 5. Bed-Chair supervision with FWW 6. Chair-Bed supervision with FWW 7. Supervision with FWW for gait on level surface for at least 100 feet without report of pain nor dyspnea Plan of Care/Treatment Plan: 1-2x/day, 7 days/week x 1 week. Plan of care has been reviewed with the BODY SHOP MECHANIC providing the service under Physical Therapy direction. Initiate Physical Therapy intervention for pain management as needed, strengthening, bed mobility, transfers, gait, stairs, balance training, and use of assistive device. DISCHARGE RECOMMENDATIONS: [] Home with no services [] [] Home with services [specify] [] Home with outpatient PT [] [X] SNF for continued rehabilitation. Patient will benefit from penitentiary facility placement for continued skilled physical therapy services in order to progress mobility level, strength, and balance awareness. [] Penitentiary Care [] [X] SNF versus LTC based on ability to participate and progress. TREATMENT CODE/TIME: 47050 x 20 minutes, 44729 x 21 minutes beginning at 14:58 PM. Thank you for the opportunity to participate in the care of this patient. Lorna Traore PT, DPT, CLT [facility] [place], [place]
[2021-09-11 15:50] VITALS: BP 132/77; PULSE 58; RESP 20; TEMP 36.1; O2SAT 97
--- NOTE | 2021-09-11 17:10 | PDOC.CMPRO ---
- If Service Date Differs Date of service: 09/11/21 Care Management Progress Note S/O: CM spoke with Alvarez's , Erin who accepted bed offer at [facility]. CM reviewed community based service supports and left application for Erin in Alvarez's Room. Alvarez will transition to [facility] when ready per MD. CM continues to follow. A: 76 year old male admitted to [facility] 09/07/21 for UTI, Septicemia, AMS P: Alvarez will discharge to [facility] when ready per MD. He will be transported home via W/C Van by the facility. CM will continue to follow.
--- NOTE | 2021-09-11 19:27 | W.PM.PROGNOT ---
Date of Service Date of service: 09/11/21 Time of Service: 19:10 Assessment and Plan Assessment and plan (1) Sepsis secondary to UTI: Status: Acute Assessment and plan: In setting of likely urinary retention, present on admission, due to E.Coli. Blood cx negative. Continue ceftriaxone. No evidence of stones/obstructive uropathy. Andres catheter to be removed/VT attempted when rash healed. Appreciate urology consult. (2) Progressive dementia with uncertain etiology: Status: Acute Assessment and plan: MRI with bilateral frontal infarcts (chronic). Checking TSH. Will need outpatient follow up for cognitive testing. ST consulted for help with communication strategies. Clonus has resolved today. (3) Tinea corporis: Status: Acute Assessment and plan: Continue vitamin A/D, zinc, clotrimazole 1/3 ointment. (4) Type 2 diabetes mellitus: Status: Acute Assessment and plan: A1c 7.7. Continue SSI, carb consistent diet. B12 ok. (5) Hypertension: Status: Chronic Assessment and plan: Continue home atenolol. Lasix on hold. (6) S/P AVR (aortic valve replacement): Status: Chronic Assessment and plan: Blood cx negative and echo w/o evidence of valvular vegetations. (7) DVT prophylaxis: Status: Acute Assessment and plan: Continue enoxaparin 40 mg SC daily (8) Discharge planning issues: Status: Acute Assessment and plan: PT/OT consulted. Will need placement. Subjective Subjective Interval history since last seen: Mr Farmer states he is feeling well. Denies dizziness, chest pain, shortness of breath, nausea. Evaluated by neurology: recommended MRI/MRA brain/neck.This showed chronic bilateral frontal lobe infarcts and no acute or subacute infarct. Evaluated by ST for communication strategies. Exam Narrative Exam Narrative: General: Pleasant elderly male, A&Ox2 HEENT: EOMI, MMM Heart: RRR, +CRIS Lungs: CTAB Abdomen: soft, nontender, nondistended Extremities: L heel with evidence of erythema; no open wounds. No clonus noted today Objective Last Vital Signs Temp 36.1 C L 09/11/21 15:50 Pulse 58 L 09/11/21 15:50 Resp 20 09/11/21 15:50 BP 132/77 09/11/21 15:50 Pulse Ox 97 09/11/21 15:50 Laboratory Results - last 24 hr 09/11/21 09/11/21 09/11/21 05:44 05:44 05:44 WBC 3.90 L RBC 3.49 L Hgb 11.4 L Hct 34.2 L MCV 98 H MCH 32.7 MCHC 33.3 RDW 12.8 Plt Count 197 MPV 10.8 Immature Gran % 0.5 Neutrophils % 59.4 Lymphocytes % 22.6 Monocytes % 4.4 Eosinophils % 12.6 Basophils % 0.5 Nucleated RBC % 0.0 Absolute Neutrophils 2.32 Absolute Lymphocytes 0.88 L Absolute Monocytes 0.17 Absolute Eosinophils 0.49 Absolute Basophils 0.02 Sodium 139 Potassium 3.6 Chloride 107 Carbon Dioxide 24.2 Anion Gap 7.8 BUN 15 Creatinine 1.0 Estimated GFR/1.73 m2 >= 60.00 Glucose 169 H Calcium 8.4 L Magnesium 1.9 C-Reactive Protein 4.96 H Vitamin B12 696 TSH Add-On Test Request 09/11/21 09/11/21 05:44 05:44 WBC RBC Hgb Hct MCV MCH MCHC RDW Plt Count MPV Immature Gran % Neutrophils % Lymphocytes % Monocytes % Eosinophils % Basophils % Nucleated RBC % Absolute Neutrophils Absolute Lymphocytes Absolute Monocytes Absolute Eosinophils Absolute Basophils Sodium Potassium Chloride Carbon Dioxide Anion Gap BUN Creatinine Estimated GFR/1.73 m2 Glucose Calcium Magnesium C-Reactive Protein Vitamin B12 TSH 2.25 Add-On Test Request DONE Objective Narrative Objective Narrative: MRI brain: No evidence of acute intracranial process.? No evidence of acute or subacute infarction.. 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 Neck MRA: Limited scan, no evidence of occlusion.
[2021-09-11] MEDS: Pravastatin 40 MG TAB PO (20:18)
[2021-09-11] MEDS: Insulin Glargine 300 UNITS/3 ML PEN 10 UNITS SC (21:00)
[2021-09-11 21:02] VITALS: BP 134/64; PULSE 60; RESP 20; TEMP 36.6; O2SAT 97
[2021-09-11 22:59] VITALS: BP 127/75; PULSE 67; RESP 16; TEMP 37; O2SAT 98
[2021-09-12] VITALS (10 sets, daily range): BP systolic 108–148; BP diastolic 61–81; PULSE 52–65; RESP 17–18; TEMP 36–37.1; O2SAT 94–100
--- NOTE | 2021-09-12 08:39 | OTIE_ITS ---
Occupational Therapy Notes Inpatient Occupational Therapy Evaluation Date: 09/12/21 Referring Doctor:Genevieve Da Silva MD OT Orders: Non Urgent Precautions: Fall, Standard, Full PATIENT PROFILE/ADMITTING DIAGNOSIS: Pt is a 76 year old male who was admitted through the ED and admitted to Med Surg for dementia and previous CVA, UTI, type II DM, CAD, HTN, and s/p AVR. Past Medical History: All Active Problems?(Updated 09/08/21 @ 00:03 by Tab Becker) Mobility impaired (Acute) Type 2 diabetes mellitus (Acute) Discharge planning issues (Acute) DVT prophylaxis (Acute) Rash (Acute) Sepsis secondary to UTI (Acute) Hypercholesteremia (Chronic) CAD (coronary artery disease) (Chronic) S/P AVR (aortic valve replacement) (Chronic) 04/2013H/O surgical procedure (Chronic) a.? Aortic valve replacement 04/2013 b.? left THR 10/04/2013 c.? Left TKR 6-7 years agoHypertension (Chronic) Medical History?(Updated 09/08/21 @ 00:03 by Tab Becker) BPH (benign prostatic hyperplasia) CHF (congestive heart failure) Diabetes Dizziness and giddiness GERD (gastroesophageal reflux disease) HLD (hyperlipidemia) Hyperglycemia Neuropathy Obesity Psoriasis Urinary incontinence Surgical History?(Updated 08/29/21 @ 09:47 by Lyndsey Solorio) H/O hernia repair Hx of CABG S/P appendectomy S/P knee replacement Social History/Home Situation: Pt at first reports that he lives with his and she helps him with everything, he states that he has 6 children only 5 locally and notes that he tends to require (A). He reports that he does not drive and that he believes he walks everywhere. He states that he is not sure how he makes his meals but thinks his does it. In a 5 minute turn around he then told this OT that he lives with his son, that he does not have a bathroom and that his home life is simple with no extras. He states that he is not sure if he needs help with anything or not. And then says, I live with my . Pt is a poor historian and his story changed multiple times throughout session. Equipment owned/DME: Unable to assess SUBJECTIVE: Pt was sitting in the chair, he starts talking to OT about the news and reports that there are school shootings every day. He is sad that this happens and then starts talking about his breakfast. OBJECTIVE: General Observation: Pleasant, frank in place, poor historian Mental Status: A&Ox2 Pain: no c/o pain to OT ROM: RUE limited to 110*, elbow WNL, wrist and digits WNL L UE WFL STRENGTH: RUE 4-/5 throughout LUE 3+/5 throughout FUNCTIONAL MOBILITY/ADLS: DRESSING sitting in chair Dressing UE NT Dressing LE Max (A) pt was unable to perform 2x even with vc, he reports that he doesn't do this at home and someone helps him. TOILETING NT EATING Pt was sitting in chair when OT arrived, he is able to perform his eating (I) but holds his silverware in one hand and eats with his other hand. He is (I) with hand to mouth, he requires vc for use of silverware appropriately but he tolerated this well. BALANCE: Static sitting Good Dynamic Sitting Good Static Standing NT Dynamic Standing NT SPECIAL TESTS: Daily Activity Limitations Standardized Measure [facility] AM -PAC ?6 clicks? Daily Activity Inpatient Short Form: Raw score: 10 Standardized score: 27.31 CMS score: 74.70% INFORMED CONSENT/EDUCATION: Pt instructed in purpose of OT Consult and plan of care. ASSESSMENT: Patient is a 76-year-old male referred to occupational therapy services with diagnosis of stroke, ememory changes, progressive dementia with un certain etiology, tinea corporis, mobility impaired, typ eII DM, Rash, Sepsis secondary to UTI, hypercholesteremia, CAD, s/p AVR replacement, HTN. Patient presents with clinical signs and symptoms consistent with dx, as demonstrated by the following impairment level findings/functional limitations: Impairments in ADL/IADL And leisure activities, decreased cognitive ability to make safe and adequate judgements, decreased strength in (B) UE, decreased functional mobility required for ADLs, impairments in cognitive status resulting in (A) needed for ADLs, high risk for re-admission, high risk for contractures. AMPAC score 10 Patient is assessed as a Moderate 10756 complexity based on the following: History: see above Examination: see functional limitations as noted above Presentation: evolving Decision Making: AMPAC score 10 GOALS Goals x1 week 1. Grooming- (I) with brushing teeth 2. Dressing- (I) UE/ mod (I) LE sitting in chair 3. Bathing- (I) UE and mod (A) LE 4. Toileting- on commode min (A) 5. Eating- (I) with appropriate use of utensils throughout eating demands. PLAN OF CARE/TREATMENT PLAN: 1x/day, 5 days/ week x 1week Initiate Occupational Therapy Services for bathing, dressing, grooming, toileting, eating, transfer training. DISCHARGE RECOMMENDATIONS OT recommends that pt go SNF vs. LTC based on his progress and performance during assessment. TREATMENT TIME/MINUTES/CODES 64293, 19677, 20 minutes (08:20) Kaylene Grubbs OTR/[facility]
[2021-09-12] MEDS: cefTRIAXone 1 GM/50 ML BAG IVPB (09:02)
[2021-09-12] MEDS: Enoxaparin 40 MG/0.4 ML SYR SC (09:02)
[2021-09-12] MEDS: Famotidine 20 MG TAB 40 MG PO (09:03)
[2021-09-12] MEDS: Aspirin E.C. 81 MG TABEC PO (09:03)
[2021-09-12] MEDS: Atenolol 25 MG TAB 12.5 MG PO (09:03)
--- NOTE | 2021-09-12 11:13 | CMPROGNOTE_ITS ---
- If Service Date Differs Date of service: 09/12/21 Time of Service: 11:13 Care Management Progress Note S/O: Per morning meeting, Alvarez will transition to oral ABX and discharge to [facility] possibly tomorrow. CM spoke with patients Erin about this today and she remains agreeable, however she would like to speak with a provider about the results of his echo first. Alvarez has been working with PT. CM notified Brandy at [facility] about potential readiness for discharge tomorrow. Alvarez will need a covid test, prior to discharge. He will transport via facility van. Additionally, CM reviewed community based service supports and left an application for Erin in Alvarez's Room. CM continues to follow. A: 76 year old male admitted to [facility] 09/07/21 for UTI, Septicemia, AMS P: Alvarez will discharge to [facility] when ready per MD. He will be transported home via W/C Van by the facility. Covid test to be done prior to discharge. CM will continue to follow.
[2021-09-12] MEDS: Insulin Aspart 300 UNITS/3 ML PEN SC ×4 (12:02→16:54)
--- NOTE | 2021-09-12 15:40 | PTTR_ITS ---
PT Notes Visit Reasons: UTI, Septicemia Direct Treatment Time: [58] Total Treatment Time: [58] Treatment Units Time Duration Manual Therapy (54177) [] [] Therapeutic Procedures (48077) [] [] Neurological Re-Education (04278) [] [] Ultrasound (11645) [] [] Gait Training (22190) [4] [58] Therapeutic Activity (92438) [] [] Self Care Training (09439) [] [] Low IE (58439) [] [] Mod IE (81081) [] [] High IE (41016) [] [] SUBJECTIVE: Pt had no complaints when approached for therapy both for morning and afternoon session. pt agrees to participating with therapy. OBJECTIVE:? BED MOBILITY/TRANSFERS? Supine-sit: 1HHA Sit-supine: min A for BLE elevation and getting centered in bed. Sit-stand: min A? Stand-sit: SBA GAIT: Assistive Device: FWW am; FWW pm Weight bearing: WBAT Assistance: CGA/SBA am; CGA/SBA pm both had WC follow Distance: 60'x2 am; 60'x2 pm seated rest break in between bouts. Deviation: shuffling gait, anterior trunk lean, narrow step width.? TOILETING: Patient toileted with min A with [employer] ASSESSMENT:? Pt highly motivated ?and is only limited by SOB and quick fatigue with exertion requiring seated rest break to help pt recover and continue with task. PLAN: Continue with gait and transfer training and LE strengthening, as tolerated, for improved mobility and activity tolerance. TREATMENT CODE/TIME: Session 1: 28 minutes; 61331 (10:58am) Session 2: 30 minutes; 69023 (3:00pm)
--- NOTE | 2021-09-12 16:37 | PGE_ITS ---
Date of Service Date of service: 09/12/21 Time of Service: 15:37 Assessment and Plan Assessment and plan (1) Memory changes: Status: Acute (2) Stroke: Status: Chronic Assessment and plan: #1. Clonus. None seen again today. May have been a toxic/metabolic aberration on top of old [employer]ORATING [employer]STRU[employer] lesions causing transient symptoms yesterday. #2. Prior strokes. MRA neck with mild carotid stenosis per my view, but limited by motion artifact. I discussed this with him. Not likely a surgical candidate given unclear if this stenosis is symptomatic or not. Will plan for outpatient CUS to track changes over time. Will also plan for outpatient lipid panel and cardiac monitoring as further work-up for old strokes. He should continue aspirin 81mg daily + statin for secondary stroke prevention. Goal LDL <70. Goal SBP 120-140. Goal A1c <7. #3. Memory impairment. Per family, noted decline preceding hospitalization. B12 and TSH are normal. Appreciate ST evaluation and help. Will perform more extensive cognitive testing as an outpatient when not acutely ill/recovering from acute illness. He should follow-up in neurology clinic in 4-6 weeks. Please call with any further questions or concerns. Subjective Subjective Interval history since last seen: Mr. Farmer is doing well today. No recurrence of clonus. He had MRIs yesterday. See prior note for my interpretation. TSH 2.25 Exam Narrative Exam Narrative: Physical Exam: Constitutional: Patient of apparent stated age, well nourished, well developed, no acute distress Neuro: MS/Language/Speech: Alert, oriented to self and place, still with naming errors today but fluency intact Motor: Normal bulk and tone. FMM intact, no pronator drift. Sensation: Intact to light touch throughout Reflexes: no clonus Coordination: Finger to nose performed without dysmetria Objective Last Vital Signs Temp 97.2 F L 09/12/21 15:03 Pulse 65 09/12/21 15:16 Resp 18 09/12/21 15:03 BP 135/79 09/12/21 15:03 Pulse Ox 96 09/12/21 15:03 Laboratory Results - last 24 hr 09/12/21 11:00 Vancomycin Trough Cancelled
--- NOTE | 2021-09-12 18:29 | W.PM.PROGNOT ---
Date of Service Date of service: 09/12/21 Time of Service: 17:32 Assessment and Plan Assessment and plan (1) Sepsis secondary to UTI: Status: Acute Assessment and plan: In setting of likely urinary retention, present on admission, due to E.Coli. Blood cx negative. Continue ceftriaxone (day 4/14). No evidence of stones/obstructive uropathy. Andres catheter to be removed/VT attempted when rash healed. Appreciate urology consult. (2) Progressive dementia with uncertain etiology: Status: Acute Assessment and plan: MRI with bilateral frontal infarcts (chronic). Will need outpatient follow up for cognitive testing. ST consulted for help with communication strategies. Clonus has resolved and was felt to be due to acute medical illness. (3) Tinea corporis: Status: Acute Assessment and plan: Continue vitamin A/D, zinc, clotrimazole 1/3 ointment. (4) Type 2 diabetes mellitus: Status: Acute Assessment and plan: A1c 7.7. Continue SSI, carb consistent diet. B12 ok. (5) Hypertension: Status: Chronic Assessment and plan: Continue home atenolol. Lasix on hold. (6) S/P AVR (aortic valve replacement): Status: Chronic Assessment and plan: Blood cx negative and echo w/o evidence of valvular vegetations. (7) DVT prophylaxis: Status: Acute Assessment and plan: Continue enoxaparin 40 mg SC daily (8) Discharge planning issues: Status: Acute Assessment and plan: PT/OT consulted. Will need placement. Subjective Subjective Interval history since last seen: Mr Farmer states he is feeling well. Denies dizziness, chest pain, shortness of breath, nausea. Exam Narrative Exam Narrative: General: Pleasant elderly male, A&Ox2 HEENT: EOMI, MMM Heart: RRR, +CRIS Lungs: CTAB Abdomen: soft, nontender, nondistended Extremities: B heels in heel protectors; no open wounds. No clonus Objective Last Vital Signs Temp 36.2 C L 09/12/21 15:03 Pulse 65 09/12/21 15:16 Resp 18 09/12/21 15:03 BP 135/79 09/12/21 15:03 Pulse Ox 96 09/12/21 15:03 Laboratory Results - last 24 hr 09/12/21 11:00 Vancomycin Trough Cancelled
[2021-09-12] MEDS: Pravastatin 40 MG TAB PO (21:06)
[2021-09-12] MEDS: Insulin Glargine 300 UNITS/3 ML PEN 10 UNITS SC (21:07)
[2021-09-12] MEDS: Melatonin 3 MG TAB PO (21:31)
[2021-09-13] VITALS (8 sets, daily range): BP systolic 110–160; BP diastolic 55–75; PULSE 45–64; RESP 16–19; TEMP 36–36.6; O2SAT 95–98
[2021-09-13 06:30] LABS: Abs Immature Grans 0.01 10^3/uL (0.0-0.06); Absolute Basophil Count 0.02 10^3/uL (0.0-0.2); Absolute Lymphocyte Count 1.22 10^3/uL (1.2-3.4); Absolute Monocyte Count 0.18 10^3/uL (0.1-0.8); Absolute Neutrophil Count 2.79 10^3/uL (1.2-6.7); Basophils % 0.4; Eosinophils % 10.6; HCT 33.1 % (40.0-50.0); HGB 11.6 g/dL (13.5-17.5); Immature Grans % 0.2; Lymphocytes % 25.8; MCH 33.2 pg (27.0-33.0); MCV 95 fL (80-95); MPV 11.1 fL (8.0-11.0); Monocytes % 3.8; Neutrophils % 59.2; Platelet Count 204 10^3/uL (130-400); RBC 3.49 10^6/uL (4.36-5.78); RDW 12.9 % (11.8-14.1); RDW-SD 44.6 fL; WBC 4.72 10^3/uL (4.4-10.8)
[2021-09-13 06:41] LABS: BUN 16 mg/dL (7-18); Calcium 8.4 mg/dL (8.5-10.1); Chloride 108 mmol/L (98-107); Glucose 154 mg/dL (74-106); Potassium 3.8 mmol/L (3.5-5.1); Sodium 140 mmol/L (136-145)
--- NOTE | 2021-09-13 08:27 | OTTR_ITS ---
Occupational Therapy Notes Occupational Therapy Inpatient Treatment Note Date: 09/12/21 PRECAUTIONS: Fall, standard, Full SUBJECTIVE: Pt states that he is doing well, he notes that he is tired. OBJECTIVE: PAIN:no c/o pain BATHING: sitting in chair with max (A) Set up/clean up Upper Body: with min vc throughout (I) face, (B) UE and abdomen Lower Body: Mod (A) (B) LE DRESSING: sitting in chair Upper Extremity: Min (A) don and doffing [facility] gown Lower Extremity: max (A) don and doffing (B) socks GROOMING: mod (A) with hair only due to tangles in the posterior portion TOILETING: Device: frank in place TREATMENT CODES/TIME: 25648, 15 minutes (07:30) Kaylene Grubbs OTR/[facility]
[2021-09-13 08:32] LABS: Lab Add On Test DONE
[2021-09-13 08:40] LABS: C-Reactive Protein 2.17 mg/dL (0.0-0.3)
[2021-09-13 09:01] LABS: Procalcitonin 0.1 ng/mL
[2021-09-13] MEDS: Atenolol 25 MG TAB 12.5 MG PO (09:22)
[2021-09-13] MEDS: Enoxaparin 40 MG/0.4 ML SYR SC (09:22)
[2021-09-13] MEDS: cefTRIAXone 1 GM/50 ML BAG IVPB (09:22)
[2021-09-13] MEDS: Normal Saline Flush 10 ML SYR IVP (09:23)
[2021-09-13] MEDS: Insulin Aspart 300 UNITS/3 ML PEN SC ×6 (09:23→21:02)
[2021-09-13] MEDS: Famotidine 20 MG TAB 40 MG PO (09:23)
[2021-09-13] MEDS: Aspirin E.C. 81 MG TABEC PO (09:23)
--- NOTE | 2021-09-13 10:15 | NUR.NOTE ---
Advised pt's nurse that pt's HR continues to drop in the 30s more often. Will monitor pt.
--- NOTE | 2021-09-13 10:21 | W.PM.DS.N ---
Date of service: 09/13/21 Time of Service: 09:54 DS: Diagnosis Discharge Diagnosis (1) Sepsis secondary to UTI: Status: Acute (2) Progressive dementia with uncertain etiology: Status: Acute (3) Tinea corporis: Status: Acute (4) Type 2 diabetes mellitus: Status: Acute (5) Hypertension: Status: Chronic (6) S/P AVR (aortic valve replacement): Status: Chronic (7) E coli infection: Status: Acute (8) Stroke: Status: Chronic (9) Ambulatory dysfunction: Status: Acute (10) Rash: Status: Acute Discharge Plan Discharge Details Reason For Visit: UTI, Septicemia Admit Date/Time: 09/07/21 20:23 Admit Provider: Tab Becker Attending Provider: Tab Becker Primary Care Provider: Oralia Bai Home Meds and New Rx's Prescriptions: No Action metformin 500 mg tablet 500 mg PO BID furosemide [Lasix] 20 mg tablet 20 mg PO DAILY acetaminophen [Acetaminophen Extra Strength] 500 MG tablet 500 mg PO TID PRN pravastatin 40 MG tablet 40 mg PO QPM Qty: 30 0RF Therapeutic-M 1 TAB tablet 1 tab PO DAILY Qty: 30 0RF metoprolol succinate 25 mg Tablet Extended Release 24 Hr 25 mg PO DAILY omeprazole 20 mg Capsule,Delayed Release(Dr/Ec) 20 mg PO DAILY aspirin 325 mg Tablet 325 mg PO DAILY DS: Data Vitals/I&O Vitals and I&O: Vital Signs Temperature 36.5 C 09/13/21 07:59 Temperature Source Tympanic 09/13/21 07:59 Pulse 63 09/13/21 07:59 Pulse Rhythm Regular 09/13/21 09:52 Pulse 68 09/08/21 06:17 Respiratory Rate 18 09/13/21 07:59 Respiratory Effort 09/13/21 09:52 Respiratory Depth Normal 09/13/21 09:52 Respiratory Pattern Normal 09/13/21 09:52 Blood Pressure 160/75 H 09/13/21 07:59 Blood Pressure Mean 70 09/08/21 06:17 Blood Pressure Position Supine 09/07/21 23:00 Pulse Oximetry 98 09/13/21 07:59 Oxygen Delivery Method Room Air 09/13/21 07:59 Oxygen Flow Rate 0 09/13/21 07:59 Pain Level 0 09/13/21 07:59 Comment 09/07/21 16:46 Intake & Output 09/12/21 09/12/21 09/13/21 11:59 23:59 11:59 Intake Total 50 / 290 240 / 290 Output Total 2200 / 2300 100 / 2300 700 / 700 Balance -2149 140 / -2009 -700 / -700 Weight 111.2 kg 110.3 kg Intake: IV 50 / 50 Oral 240 / 240 Output: Urine 2200 / 2300 100 / 2300 700 / 700 Other: Urine Color Yellow Yellow Light Hodan Urine Appearance Clear Clear Clear Stool Size Copious Stool Characteristics Soft Brown Data Completed and Pending Labs on day of discharge: Labs from last 24 hours 09/13/21 09/13/21 09/13/21 Unknown 05:55 05:55 WBC RBC Hgb Hct MCV MCH MCHC RDW Plt Count MPV Immature Gran % Neutrophils % Lymphocytes % Monocytes % Eosinophils % Basophils % Nucleated RBC % Absolute Neutrophils Absolute Lymphocytes Absolute Monocytes Absolute Eosinophils Absolute Basophils Sodium Potassium Chloride Carbon Dioxide Anion Gap BUN Creatinine Estimated GFR/1.73 m2 Glucose Calcium Magnesium C-Reactive Protein 2.17 H Procalcitonin 0.1 Add-On Test Request DONE 09/13/21 09/13/21 05:55 05:55 WBC 4.72 RBC 3.49 L Hgb 11.6 L Hct 33.1 L MCV 95 MCH 33.2 H MCHC 35.0 D RDW 12.9 Plt Count 204 MPV 11.1 H Immature Gran % 0.2 Neutrophils % 59.2 Lymphocytes % 25.8 Monocytes % 3.8 Eosinophils % 10.6 Basophils % 0.4 Nucleated RBC % 0.0 Absolute Neutrophils 2.79 Absolute Lymphocytes 1.22 Absolute Monocytes 0.18 Absolute Eosinophils 0.50 Absolute Basophils 0.02 Sodium 140 Potassium 3.8 Chloride 108 H Carbon Dioxide 23.0 Anion Gap 9.0 BUN 16 Creatinine 1.0 Estimated GFR/1.73 m2 >= 60.00 Glucose 154 H Calcium 8.4 L Magnesium 2.0 C-Reactive Protein Procalcitonin Add-On Test Request Preliminary micro results at discharge 09/09/21 18:55 Blood Culture - Preliminary Blood NO GROWTH 72 HOURS 09/09/21 17:55 Blood Culture - Preliminary Blood NO GROWTH 72 HOURS PFSH All Active Problems (Updated 09/13/21 @ 10:57 by Genevieve Da Silva MD) Ambulatory dysfunction (Acute) E coli infection (Acute) Stroke (Chronic) Memory changes (Acute) Progressive dementia with uncertain etiology (Acute) Tinea corporis (Acute) Mobility impaired (Acute) Type 2 diabetes mellitus (Acute) Discharge planning issues (Acute) DVT prophylaxis (Acute) Rash (Acute) Sepsis secondary to UTI (Acute) Hypercholesteremia (Chronic) CAD (coronary artery disease) (Chronic) S/P AVR (aortic valve replacement) (Chronic) 04/2013 H/O surgical procedure (Chronic) a. Aortic valve replacement 04/2013 b. left THR 10/04/2013 c. Left TKR 6-7 years ago Hypertension (Chronic) Medical History BPH (benign prostatic hyperplasia) CHF (congestive heart failure) Diabetes Dizziness and giddiness GERD (gastroesophageal reflux disease) HLD (hyperlipidemia) Hyperglycemia Neuropathy Obesity Psoriasis Urinary incontinence Surgical History H/O hernia repair Hx of CABG S/P appendectomy S/P knee replacement Social History Smoking/Tobacco Use Status: Former Tobacco Use Smoking risk assessment performed?: Yes Drug use: Never Substance use type: does not use Do you feel safe at home: Yes Do you feel safe in your relationship?: Yes
[2021-09-13 11:32] LABS: Lab Add On Test DONE
[2021-09-13 11:43] LABS: Calculated LDL 86 mg/dL (<100); Cholesterol 129 mg/dL (<200); HDL Cholesterol 26 mg/dL (40-60); Triglyceride 89 mg/dL (<150)
--- NOTE | 2021-09-13 11:45 | RT.EKG_ITS ---
APPROVED REPORT Exam: Resting ECG Reason for Exam: tachy sara syndrome Patient Location: I HR:48 bpm ECG Measurements Heart Rate 48 AXIS PA 161 P 37 QRSd 90 QRS 16 QT 476 T 17 QTc 426 Conclusion Sinus bradycardia...rate< 50 Probable left atrial enlargement...P >50mS, <-0.10mV V1 Baseline wander in lead(s) V6
[2021-09-13 12:49] LABS: Anion Gap 7.2 mmol/L (3-11); BUN 16 mg/dL (7-18); CO2 25.8 mmol/L (21.0-32.0); CREATININE 0.9 mg/dL (0.70-1.30); Chloride 104 mmol/L (98-107); Glucose 141 mg/dL (74-106); Magnesium 2.3 mg/dL (1.8-2.4); Potassium 3.7 mmol/L (3.5-5.1); Sodium 137 mmol/L (136-145)
[2021-09-13 12:58] LABS: Troponin I < 50 ng/L (<or=60)
--- NOTE | 2021-09-13 13:15 | PDOC.CMPRO ---
- If Service Date Differs Date of service: 09/13/21 Time of Service: 13:15 Care Management Progress Note S/O: Alvarez was scheduled to discharge to [facility] today at 1330, DC cancelled due to increased concerns related to heart rate, per MD. Anticipate possible tertiary transfer may be indicated. Facility notified of cancelled discharge. CM continues to follow. A: 76 year old male admitted to [facility] 09/07/21 for UTI, Septicemia, AMS P: If Alvarez is not urgently transferred via EMS, anticipate he will still discharge to [facility] when ready per MD. He will be transported via W/C Van by the facility. Covid test to be done prior to discharge. CM will continue to follow.
--- NOTE | 2021-09-13 13:59 | PGE_ITS ---
Date of Service Date of service: 09/13/21 Time of Service: 12:59 Assessment and Plan Assessment and plan (1) Tachy-sara syndrome: Status: Acute Assessment and plan: Patient is accepted in transfer to [facility] for tomorrow (Dr Dimas) for EP evaluation for a possible pacemaker. NPO after midnight. Hold beta blockers. Asymptomatic at both high and low rates. Continue to monitor on tele. (2) Sepsis secondary to UTI: Status: Acute Assessment and plan: In setting of likely urinary retention, present on admission, due to E.Coli. Blood cx negative. Continue ceftriaxone (day 514). No evidence of stones/obstructive uropathy. Andres catheter to be removed/VT attempted when rash healed. Appreciate urology consult. (3) MRSA colonization: Status: Acute Assessment and plan: Will try decolonization with nasal mupirosin. (4) Stroke: Status: Chronic Assessment and plan: Two Chronic bilateral frontal strokes found on MRI. FLP pending. Continue asa, statin. Will need outpatient follow up for a carotid US in a year. (5) Progressive dementia with uncertain etiology: Status: Acute Assessment and plan: MRI with bilateral frontal infarcts (chronic). Will need outpatient follow up for cognitive testing. ST consulted for help with communication strategies. Clonus has resolved and was felt to be due to acute medical illness. (6) Tinea corporis: Status: Acute Assessment and plan: Continue vitamin A/D, zinc, clotrimazole 1/3 ointment. (7) Type 2 diabetes mellitus: Status: Acute Assessment and plan: A1c 7.7. Continue SSI, carb consistent diet. B12 ok. (8) Hypertension: Status: Chronic Assessment and plan: D/c atenolol and monitor BPs. (9) S/P AVR (aortic valve replacement): Status: Chronic Assessment and plan: Blood cx negative and echo w/o evidence of valvular vegetations. (10) E coli infection: Status: Acute Assessment and plan: As above (11) Ambulatory dysfunction: Status: Acute Assessment and plan: PT consulted - will need SNF on discharge (12) Rash: Status: Acute Assessment and plan: [place] to be due to a chemical dermatitis from being exposed to urine-saturated bedding. Continue 1/3 cream as above. (13) Discharge planning issues: Status: Acute Assessment and plan: Anticipate transfer to [facility] cardiology for EP evaluation tomorrow. Full code Palliative care consulted. Subjective Subjective Interval history since last seen: The patient states he feels well. Denies dizziness, chest pains, shortness of breath, nausea. He has been on telemetry: while on telemetry today, he has had episodes of HR In the 30s and up to 130s, mostly in the 40s - sinus. Discussed with Dr Ervin, who had reviewed the strips and felt that the patient might benefit from an evaluation for a pacemaker. Discussed with [facility] cardiology: patient is accepted in transfer to [facility] for tomorrow for an EP evaluation under the care of Dr Dimas. They request that beta celia be stopped and patient be made NPO after midnight. Exam Narrative Exam Narrative: General: Pleasant elderly male, A&Ox2, sitting comfortably in a chair eating lunch HEENT: EOMI, MMM Heart: RRR, +CRIS, HR in the 40s on this exam Lungs: CTAB Abdomen: soft, nontender, nondistended Extremities: trace edema BLEs Objective Last Vital Signs Temp 36 C L 09/13/21 11:27 Pulse 52 L 09/13/21 11:27 Resp 16 09/13/21 11:27 BP 129/56 L 09/13/21 11:27 Pulse Ox 97 09/13/21 11:27 Laboratory Results - last 24 hr 09/13/21 09/13/21 09/13/21 05:55 05:55 05:55 WBC 4.72 RBC 3.49 L Hgb 11.6 L Hct 33.1 L MCV 95 MCH 33.2 H MCHC 35.0 D RDW 12.9 Plt Count 204 MPV 11.1 H Immature Gran % 0.2 Neutrophils % 59.2 Lymphocytes % 25.8 Monocytes % 3.8 Eosinophils % 10.6 Basophils % 0.4 Nucleated RBC % 0.0 Absolute Neutrophils 2.79 Absolute Lymphocytes 1.22 Absolute Monocytes 0.18 Absolute Eosinophils 0.50 Absolute Basophils 0.02 Sodium 140 Potassium 3.8 Chloride 108 H Carbon Dioxide 23.0 Anion Gap 9.0 BUN 16 Creatinine 1.0 Estimated GFR/1.73 m2 >= 60.00 Glucose 154 H Calcium 8.4 L Magnesium 2.0 Troponin I C-Reactive Protein 2.17 H Triglycerides Total Cholesterol LDL Cholesterol, Calc HDL Cholesterol Procalcitonin Add-On Test Request 09/13/21 09/13/21 09/13/21 05:55 05:55 05:55 WBC RBC Hgb Hct MCV MCH MCHC RDW Plt Count MPV Immature Gran % Neutrophils % Lymphocytes % Monocytes % Eosinophils % Basophils % Nucleated RBC % Absolute Neutrophils Absolute Lymphocytes Absolute Monocytes Absolute Eosinophils Absolute Basophils Sodium Potassium Chloride Carbon Dioxide Anion Gap BUN Creatinine Estimated GFR/1.73 m2 Glucose Calcium Magnesium Troponin I C-Reactive Protein Triglycerides 89 Total Cholesterol 129 LDL Cholesterol, Calc 86 HDL Cholesterol 26 L Procalcitonin 0.1 Add-On Test Request DONE 09/13/21 09/13/21 09/13/21 12:35 12:35 Unknown WBC RBC Hgb Hct MCV MCH MCHC RDW Plt Count MPV Immature Gran % Neutrophils % Lymphocytes % Monocytes % Eosinophils % Basophils % Nucleated RBC % Absolute Neutrophils Absolute Lymphocytes Absolute Monocytes Absolute Eosinophils Absolute Basophils Sodium 137 Potassium 3.7 Chloride 104 Carbon Dioxide 25.8 Anion Gap 7.2 BUN 16 Creatinine 0.9 Estimated GFR/1.73 m2 >= 60.00 Glucose 141 H Calcium 9.0 Magnesium 2.3 Troponin I < 50 C-Reactive Protein Triglycerides Total Cholesterol LDL Cholesterol, Calc HDL Cholesterol Procalcitonin Add-On Test Request DONE
--- NOTE | 2021-09-13 14:26 | PTTR_ITS ---
Date of service: 09/13/21 Time of Service: 14:26 PT Notes Visit Reasons: UTI, Septicemia Physical Therapy Inpatient Treatment Note Date: 09/13/2021 Precautions: Fall. Standard. Activity as tolerated. SUBJECTIVE: Pleasant and cooperative. Scratching left and right bottom areas frequently during ambulation activity. OBJECTIVE:? ? ? Appeared to be more mentally clear today compared to yesterday. Verbal responses quicker. Movements more sequential and purposeful compared to yesterday. ? BED MOBILITY/TRANSFERS? ? :? Sit-stand: stand by assist? Stand-sit: stand by assist? GAIT: Assistive Device: FWW Weight bearing: FWB Assistance: conatct guard assist Distance: 20 feet + 30 feet + 30 feet + 5 feet Deviation: Richa decreased, gait shuffled, trunk anteroflexed, CHRISTIE decreased. Moderate cues given to maintain safe distance from walker?to minimize loss of balance.? ASSESSMENT:? Improved mental clarity has increased ability to respond verbally and motorically. Activity tolerance improving with ambulation distance increasing. Frequent scratching of back makes him let go of walker with one hand and increased risk for loss of balance. PLAN: Progress mobility leve, strength, and balance as initially established in PT POC. DISCHARGE RECOMMENDATIONS: [] ? Home with no services [] [] ? Home with services [specify] [] ? Home with outpatient PT [] [X] ? SNF for continued rehabilitation.? Patient will benefit from assisted facility placement for continued skilled physical therapy services in order to progress mobility level, strength, and balance awareness. [] ? [facility] [] [X] ? SNF versus LTC based on ability to participate and progress. TREATMENT CODE/TIME: 94357 x 42 minutes beginning at 14:26 PM.
[2021-09-13] MEDS: Melatonin 3 MG TAB PO (21:01)
[2021-09-13] MEDS: Pravastatin 40 MG TAB PO (21:01)
[2021-09-14 00:27] VITALS: BP 116/70; PULSE 62; RESP 19; TEMP 36.6; O2SAT 96
[2021-09-14 07:00] VITALS: PULSE 61
[2021-09-14 07:16] VITALS: BP 123/60; PULSE 50; RESP 18; TEMP 36.4; O2SAT 97
[2021-09-14] MEDS: Famotidine 20 MG TAB 40 MG PO (08:05)
[2021-09-14] MEDS: cefTRIAXone 1 GM/50 ML BAG IVPB (08:05)
[2021-09-14] MEDS: Aspirin E.C. 81 MG TABEC PO (08:05)
[2021-09-14] MEDS: Normal Saline Flush 10 ML SYR IVP ×3 (08:05→09:27)
--- NOTE | 2021-09-14 09:56 | PDOC.CMPRO ---
- If Service Date Differs Date of service: 09/14/21 Time of Service: 09:57 Care Management Progress Note S/O: Alvarez was scheduled to discharge to [facility] yesterday at 1330, DC cancelled due to unstable medical status. Anticipate transfer to tertiary today. CM continues to follow. A: 76 year old male admitted to [facility] 09/07/21 for UTI, Septicemia, AMS P: If Alvarez is not urgently transferred via EMS, anticipate he will still discharge to [facility] when ready per MD. He will be transported via W/C Van by the facility. Covid test to be done prior to discharge. CM will continue to follow.
[2021-09-14 10:58] VITALS: PULSE 49
[2021-09-14 11:18] VITALS: BP 125/63; PULSE 52; RESP 20; TEMP 36.3; O2SAT 98
--- NOTE | 2021-09-14 11:31 | W.PM.DS.N ---
Date of service: 09/14/21 Time of Service: 10:32 DS: Diagnosis Discharge Diagnosis (1) Tachy-sara syndrome: Status: Acute (2) Sepsis secondary to UTI: Status: Acute (3) E coli infection: Status: Acute (4) MRSA colonization: Status: Acute (5) Stroke: Status: Chronic Asessment and Plan: not on this admission (6) Progressive dementia with uncertain etiology: Status: Acute (7) Tinea corporis: Status: Acute (8) Type 2 diabetes mellitus: Status: Acute (9) Hypertension: Status: Chronic (10) S/P AVR (aortic valve replacement): Status: Chronic (11) Ambulatory dysfunction: Status: Acute (12) Stenosis of right middle cerebral artery: Status: Acute Discharge Plan Disposition Patient Disposition: [facility] Condition: Fair Discharge Details Reason For Visit: UTI, Septicemia Admit Date/Time: 09/07/21 20:23 Admit Provider: Tab Becker Attending Provider: Tab Becker Primary Care Provider: Oralia Bai [facility] Course Hospital Course: Mr Farmer is a 76 year old male with PMHx of CAD, h/o bioprosthetic AVR, hypertension, hyperlipidemia, who was admitted to [facility] hospitalist service on 09/07/21 for sepsis due to E. Coli UTI with probably toxic metabolic encephalopathy related to that. He was laying in wet bedding at home resulting in a fungal/chemical rash on his right side. Two different sets of blood cultures were obtained and were negative. His E. Coli in the urine was sensitive to ceftriaxone. While blood cultures were pending, the patient did receive empiric IV primaxin and vancomycin as his MRSA nasal swab was positive, but this is felt to represent MRSA colonization rather than a true infection. There is no evidence of MRSA infection or bacteremia on this admission - only his E. Coli UTI. He was switched to ceftriaxone on 09/09/21. Andres catheter was placed to protect the skin. The patient was evaluated by urology for the UTI - it is unknown if he was retaining urine, but it is likely, since there is no other good reason for him to have developed a UTI. When the rash has healed, he will need to have a voiding trial, per urology recommendations. He is on day 2/5 of the mupirocin decolonization nasal ointment (first cycle of therapy). He is currently on day 8 out of 14 of the antibiotics (ceftriaxone) for his UTI. The patient's progressive confusion at home was evaluated by neurology since his CT of the head demonstrated old bilateral frontal infarcts. He underwent an MRI of the brain confirming old bilateral frontal infarcts and no acute CVA. He has evidence of a possible R MCA stenosis. He is on aspirin, statin. He will need to follow up with neurology as outpatient. Telemetry monitoring was instituted at the time of evaluation for the strokes and showed that the patient had been having episodes of atrial tachycardia to 130s and bradycardia to sometimes high 20s (while on atelnolol 12.5 mg daily). It is hard to securities teller whether the patient is symptomatic of either rapid or low rates because the patient is rather forgetful. His last dose of beta celia was in the morning of 09/13/21. The patient's EKG and telemetry strip was evaluated [place] [facility] [place], and he is felt to be a candidate for a possible pacemaker. His is in agreement with the pacemaker. The patient is full code, per . He is medically stable for transfer, and family is agreeable to transfer. When ready for discharge, our physical therapy has recommended SNF. Care for patient as well as completion of his transfer summary on day of transfer took 45 minutes. Please, look for MAR for list of this patient's inpatient medications. The list of medications below reflects his outpatient prescriptions. Home Meds and New Rx's Prescriptions: No Action metformin 500 mg tablet 500 mg PO BID furosemide [Lasix] 20 mg tablet 20 mg PO DAILY acetaminophen [Acetaminophen Extra Strength] 500 MG tablet 500 mg PO TID PRN pravastatin 40 MG tablet 40 mg PO QPM Qty: 30 0RF Therapeutic-M 1 TAB tablet 1 tab PO DAILY Qty: 30 0RF metoprolol succinate 25 mg Tablet Extended Release 24 Hr 25 mg PO DAILY omeprazole 20 mg Capsule,Delayed Release(Dr/Ec) 20 mg PO DAILY aspirin 325 mg Tablet 325 mg PO DAILY Discharge Instructions Stand Alone Forms: Nursing Discharge Form Referrals: Oralia Bai [Primary Care Provider] - Amita Valentine MD [ [facility] STAFF PHYSICIAN] - Activity:: Activity as Tolerated Diet:: NPO Discharge Orders Discharge Orders: Discharge Order (Routine); Ordered 09/14/21 Ordered By: Genevieve Da Silva DS: Summary Time Spent with Patient providing and/or coordinating discharge services: Greater than 30 minutes Status at Discharge Functional status at discharge: uses cane/walker Overall status at discharge: patient is progressing back to baseline Mental Status: mental status grossly normal (A&Ox1 - his baseline) Speech and Movement: speech and movement normal Mood: congruent mood Affect: normal affect Exam Narrative Exam Narrative: General: Pleasant elderly male, A&Ox2 HEENT: EOMI, MMM Heart: RRR, +CRIS Lungs: CTAB Abdomen: soft, nontender, nondistended Extremities: trace edema BLEs Psych Mental Status: mental status grossly normal (A&Ox1 - his baseline) Speech and Movement: speech and movement normal Mood: congruent mood Affect: normal affect DS: Data Vitals/I&O Vitals and I&O: Vital Signs Temperature 36.3 C L 09/14/21 11:18 Temperature Source Tympanic 09/14/21 11:18 Pulse 52 L 09/14/21 11:18 Pulse Rhythm Irregular 09/14/21 09:21 Pulse 68 09/08/21 06:17 Respiratory Rate 20 09/14/21 11:18 Respiratory Effort 09/14/21 09:21 Respiratory Depth Normal 09/14/21 09:21 Respiratory Pattern Normal 09/14/21 09:21 Blood Pressure 125/63 09/14/21 11:18 Blood Pressure Mean 70 09/08/21 06:17 Blood Pressure Position Supine 09/07/21 23:00 Pulse Oximetry 98 09/14/21 11:18 Oxygen Delivery Method Room Air 09/14/21 11:18 Oxygen Flow Rate 0 09/14/21 11:18 Pain Level 0 09/14/21 11:18 Comment 09/07/21 16:46 Intake & Output 09/13/21 09/13/21 09/14/21 11:59 23:59 11:59 Intake Total 450 / 670 220 / 670 Output Total 1050 / 1900 850 / 1900 950 / 950 Balance -600 / -1230 -630 / -1230 -950 / -950 Weight 110.3 kg Intake: IV 50 / 50 Oral 400 / 620 220 / 620 Output: Urine 1050 / 1900 850 / 1900 950 / 950 Other: Urine Color Light Hodan Pale Light Hodan Yellow Urine Appearance Sediment Clear Sediment Stool Size Large Stool Characteristics Soft Data Completed and Pending Completed studies during hospitalization [Text1]: CXR: No acute pulmonary findings. CT abdomen/pelvis: 1. Limited evaluation of the urinary bladder secondary to decompression.? There is a Andres catheter in place.? There is thickening of the wall of the urinary bladder.? This may be due to underdistention, chronic bladder outlet obstruction or an infectious/inflammatory process.? Please correlate clinically. 2. Nonemergent chronic findings in the abdomen and pelvis as described above.? CT head: Old bilateral frontal infarcts.? No acute abnormality. Echo; Normal left ventricular wall thickness and chamber size.? Estimated ejection fraction is 55%.? Wall motion is normal Normal right ventricular size and systolic function Both atria are normal in size There is a bioprosthetic aortic valve with appropriate gradients.? There is no aortic regurgitation. Mildly thickened mitral leaflets.? Mild mitral annular calcification.? Mild mitral regurgitation Normal tricuspid valve with trace regurgitation.? Estimated right ventricular systolic pressure is 27 mmHg No valvular vegetations identified Brain MRI: No evidence of acute intracranial process.? No evidence of acute or subacute infarction.. Brain MRA: Probable stenosis of a bifurcated branch of the right middle cerebral artery as described above. 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 Neck MRA: Limited scan, no evidence of occlusion. Labs on day of discharge: Labs from last 24 hours 09/13/21 09/13/21 09/13/21 12:35 12:35 05:55 Sodium 137 Potassium 3.7 Chloride 104 Carbon Dioxide 25.8 Anion Gap 7.2 BUN 16 Creatinine 0.9 Estimated GFR/1.73 m2 >= 60.00 Glucose 141 H Calcium 9.0 Magnesium 2.3 Troponin I < 50 Triglycerides 89 Total Cholesterol 129 LDL Cholesterol, Calc 86 HDL Cholesterol 26 L Add-On Test Request 09/13/21 05:55 Sodium Potassium Chloride Carbon Dioxide Anion Gap BUN Creatinine Estimated GFR/1.73 m2 Glucose Calcium Magnesium Troponin I Triglycerides Total Cholesterol LDL Cholesterol, Calc HDL Cholesterol Add-On Test Request DONE Preliminary micro results at discharge 09/09/21 18:55 Blood Culture - Preliminary Blood NO GROWTH 96 HOURS 09/09/21 17:55 Blood Culture - Preliminary Blood NO GROWTH 96 HOURS [facility] All Active Problems (Updated 09/14/21 @ 12:06 by Genevieve Da Silva MD) Stenosis of right middle cerebral artery (Acute) MRSA colonization (Acute) Tachy-sara syndrome (Acute) Ambulatory dysfunction (Acute) E coli infection (Acute) Stroke (Chronic) Memory changes (Acute) Progressive dementia with uncertain etiology (Acute) Tinea corporis (Acute) Mobility impaired (Acute) Type 2 diabetes mellitus (Acute) Discharge planning issues (Acute) DVT prophylaxis (Acute) Rash (Acute) Sepsis secondary to UTI (Acute) Hypercholesteremia (Chronic) CAD (coronary artery disease) (Chronic) S/P AVR (aortic valve replacement) (Chronic) 04/2013 H/O surgical procedure (Chronic) a. Aortic valve replacement 04/2013 b. left THR 10/04/2013 c. Left TKR 6-7 years ago Hypertension (Chronic) Medical History BPH (benign prostatic hyperplasia) CHF (congestive heart failure) Diabetes Dizziness and giddiness GERD (gastroesophageal reflux disease) HLD (hyperlipidemia) Hyperglycemia Neuropathy Obesity Psoriasis Urinary incontinence Surgical History H/O hernia repair Hx of CABG S/P appendectomy S/P knee replacement Social History Smoking/Tobacco Use Status: Former Tobacco Use Smoking risk assessment performed?: Yes Drug use: Never Substance use type: does not use Do you feel safe at home: Yes Do you feel safe in your relationship?: Yes
[2021-09-14 12:21] VITALS: PULSE 50
--- NOTE | 2021-09-14 18:30 | INDS_ITS ---
Date of service: 09/14/21 PT Notes Visit Reasons: UTI, Septicemia Physical Therapy Inpatient Discharge Summary Date: 09/14/2021 Dates of service: 09/11/2021 through 09/14/2021 This is a clinical summary of care provided for the duration of dates listed above. No charge was made in the completion of this documentation. Referring Doctor: Genevieve Da Silva MD PT Orders: PT CONSULT: Limited ability Precautions: Fall. Standard. Activity as tolerated. Patient Profile/Admitting Diagnosis:? Alvarez is a 76-year-old male with past medical history significant for dementia and previous CVA with admitting diagnoses of sepsis secondary to UTI, progressive dementia with uncertain etiology, type II DM, HTN, and s/p AVR. PMHX: All Active Problems?(Updated 09/08/21 @ 00:03 by Tab Becker) Mobility impaired (Acute) Type 2 diabetes mellitus (Acute) Discharge planning issues (Acute) DVT prophylaxis (Acute) Rash (Acute) Sepsis secondary to UTI (Acute) Hypercholesteremia (Chronic) CAD (coronary artery disease) (Chronic) S/P AVR (aortic valve replacement) (Chronic) 04/2013 H/O surgical procedure (Chronic) a.? Aortic valve replacement 04/2013 b.? left THR 10/04/2013 c.? Left TKR 6-7 years agoHypertension (Chronic) Medical History?(Updated 09/08/21 @ 00:03 by Tab Becker) BPH (benign prostatic hyperplasia) CHF (congestive heart failure) Diabetes Dizziness and giddiness GERD (gastroesophageal reflux disease) HLD (hyperlipidemia) Hyperglycemia Neuropathy Obesity Psoriasis Urinary incontinence Surgical History?(Updated 08/29/21 @ 09:47 by Lyndsey Solorio) H/O hernia repair Hx of CABG S/P appendectomy S/P knee replacement Social History/Home Situation: Unable to extract information from patient due to dementia.??Per ISAIAH Connor's notes: Alvarez lives in [facility] with his , their son Quan, [id number], and 4 grandkids.? Alvarez is retired but formerly worked at [employer] in the [place].? Alvarez and his have 6 children, 3 sons and 3 daughters, all of whom live in [place] with the exception of one son who resides in [place].? Alvarez enjoys watching television and especially likes the [employer]. Per , patients walked on his own with a walker. Equipment Owned/DME: [facility] Subjective: NT. See most recent GRAPHITE GRINDER notes. Objective: General Observation: NT. See most recent GRAPHITE GRINDER notes. Mental Status: NT. See most recent GRAPHITE GRINDER notes. Pain: NT. See most recent GRAPHITE GRINDER notes. ROM: Right Upper Extremity: ? Shoulder Flexion allows up to 100 degrees. Shoulder abduction allows up to 90 degrees. Elbow flexion WFL. Wrist flexion WFL. Functional opening and closing of hand WFL. Left Upper Extremity:? SShoulder Flexion allows up to 100 degrees. Shoulder abduction allows up to 90 degrees. Elbow flexion WFL. Wrist flexion WFL. Functional opening and closing of hand WFL. Right Lower Extremity: Hip flexion lacks the last 25 degrees of AROM. Hip abduction about 10 degrees. Knee flexion WFL. Ankle dorsiflexion to neutral only. Ankle plantarflexion WFL. Left Lower Extremity: Hip flexion lacks the last 25 degrees of AROM. Hip abduction about 10 degrees. Knee flexion WFL. Ankle dorsiflexion to neutral only. Ankle plantarflexion WFL. Strength: Right Upper Extremity: Shoulder flexors 3-/5. Shoulder abductors 3-/5. Elbow flexors 4-/5. Elbow extensors 4-/5. Childcare Administrator strong. Left Upper Extremity: Shoulder flexors 3-/5. Shoulder abductors 3-/5. Elbow flexors 4-/5. Elbow extensors 4-/5. Childcare Administrator strong. Right Lower Extremity: Hip flexors 3-/5. Hip abductors 3-/5. Knee flexors 4-/5. Knee extensors 4-/5. Ankle dorsiflexors 3-/5. Ankle plantarflexors 4-/5. Left Lower Extremity: Hip flexors 3-/5. Hip abductors 3-/5. Knee flexors 4-/5. Knee extensors 4-/5. Ankle dorsiflexors 3-/5. Ankle plantarflexors 4-/5. Bed Mobility/Transfers: Sit to stand with standby assist Stand to sit with standby assist Bed to reclining chair standby assist Gait: Instructed patient with level surface ambulation of 20 feet +30 feet +30 feet +5 feet moderate to maximal verbal, tactile, and visual cueing done for safety and walker management. Standby assist provided. Richa decreased. Gait shuffled. Trunk and Teruflex. Base of support decreased. Balance: Static Sitting: Good Dynamic Sitting: Good Static Standing: Fair Dynamic Standing: Fair ASSESSMENT: 1.? Discharge planning issues Poor safety awareness due to progressive cognition decline complicated by recent sepsis from UTI.? Clonus only detected on the L ankle, none on R.? Unable to perform rapid alternating movement despite visual and verbal cues.? Motor and verbal responses delayed.? No resting tremor observed at rest and with movement throughout session.? Movement not fluid,? appeared motoric with some freezing episodes during ambulation and transfer tasks needing multi-sensorial cueing.? Will benefit from SNF palcement for continued rehabilitation and potential LTC placement due to progressive natire of cognitive decline. Patient presents with clinical signs and symptoms consistent with current/admitting diagnoses that have resulted to mobility limitations, gait instability, generalized weakness, and overall ADL decline as demonstrated by the following impairment level findings: 1.? Decreased strength to B UE/LE major muscle groups 2.? Impaired sitting/standing balance 3.? Impaired activity tolerance 4.? Limitation of joint range of motion in B shoulders and hips 5. Impaired cognition/impaired safety awareness Impairments are contributing to the following functional limitations: 1.? Decline in bed mobility skills 2.? Decline in transfer skills 3.? Difficulty with ambulation without assistive device and physical assistance 4.? Increased completion time for mobility ADL performance 5.? Increased risk for falls Patient is assessed as a [id number] moderate complexity based on the following: History: 76-year-old male with past medical history as indicated above Examination: Demonstrable impairment in strength, balance, and mobility level with underlying impairments and functional limitations as exhibited above as well as deficit score of 69% utilizing the [facility] Mobility Inpatient Short Form Presentation: Evolving Decision Makin moderate complexity Goals: Goals X1 week 1. Supine-Sit supervision NOT MET 2. Sit-Supine supervision NOT MET 3. Sit-Stand supervision NOT MET 4. Stand-Sit supervision with FWW NOT MET 5. Bed-Chair supervision with FWW NOT MET 6. Chair-Bed supervision with FWW NOT MET 7. Supervision with FWW for gait on level surface for at least 100 feet without report of pain nor dyspnea NOT MET DISCHARGE RECOMMENDATIONS: [] ? Home with no services [] [] ? Home with services [specify] [] ? Home with outpatient PT [] [X] ? SNF for continued rehabilitation.? Patient will benefit from intermediate facility placement for continued skilled physical therapy services in order to progress mobility level, strength, and balance awareness. [] ? Shelter Care [] [X] ? SNF versus LTC based on ability to participate and progress. TREATMENT CODE/TIME: [place] Thank you for the opportunity to participate in the care of this patient. Lorna Traore PT, DPT, CLT [facility] [place], [place]
== END 2021-09-14 12:30 | disposition short-term general hospital (02) | DRG 872 ==
LOC: ER 20:47 → ICU 23:00 → MS 09-08 14:34
PROVIDERS: Internal Medicine; Admitting Provider Family Medicine; Emergency Provider Physician Assistant; PCP Nurse Practitioner Family; Visit Provider Family Medicine
DX: A41.51 Sepsis due to Escherichia coli [E. coli] (principal); N39.0 Urinary tract infection, site not specified; I67.89 Other cerebrovascular disease; I49.5 Sick sinus syndrome; B37.2 Candidiasis of skin and nail; N40.0 Benign prostatic hyperplasia without lower urinary tract symptoms; I66.01 Occlusion and stenosis of right middle cerebral artery; I50.9 Heart failure, unspecified; E11.40 Type 2 diabetes mellitus with diabetic neuropathy, unspecified; K21.9 Gastro-esophageal reflux disease without esophagitis; R32 Unspecified urinary incontinence; E78.5 Hyperlipidemia, unspecified; E66.9 Obesity, unspecified; Z68.34 Body mass index [BMI] 34.0-34.9, adult; Z79.01 Long term (current) use of anticoagulants; B35.4 Tinea corporis; Z74.09 Other reduced mobility; E78.00 Pure hypercholesterolemia, unspecified; I25.10 Atherosclerotic heart disease of native coronary artery without angina pectoris; Z95.2 Presence of prosthetic heart valve; Z96.642 Presence of left artificial hip joint; Z96.652 Presence of left artificial knee joint; Z95.1 Presence of aortocoronary bypass graft; I11.0 Hypertensive heart disease with heart failure; L40.9 Psoriasis, unspecified; Z87.891 Personal history of nicotine dependence; Z79.84 Long term (current) use of oral hypoglycemic drugs; B96.20 Unspecified Escherichia coli [E. coli] as the cause of diseases classified elsewhere; R33.9 Retention of urine, unspecified; F03.90 Unspecified dementia, unspecified severity, without behavioral disturbance, psychotic disturbance, mood disturbance, and anxiety; Z86.73 Personal history of transient ischemic attack (TIA), and cerebral infarction without residual deficits; R41.3 Other amnesia; R25.8 Other abnormal involuntary movements; I65.23 Occlusion and stenosis of bilateral carotid arteries; Z22.322 Carrier or suspected carrier of Methicillin resistant Staphylococcus aureus; R26.2 Difficulty in walking, not elsewhere classified; L25.8 Unspecified contact dermatitis due to other agents
CPT/HCPCS: 36410; 36415; 36416; 51702; 70544; 70547; 80048; 80053; 80061; 82962; 84145; 87040; 87077; 87081; 87635; 87637; 93005; 93306; 96365; 96366; 96368; 96375; 97116; 97162; 97166; 97530; 97535; 99223; 99232; 99285; J1650; 70450; 70551; 71045; 74176; 80202; 81003; 81015; 82607; 83036; 83605; 83735; 83880; 84443; 84484; 85025; 85610; 86140; 87086; 87186; 92523; 93010; 99233; 99239; J0131; J0696; J0743

== ENCOUNTER 2021-09-22 10:02 | Outpatient (REF) | payer MEDICARE, OTHER, SELFPAY ==
[2021-09-22 10:20] LABS: Anion Gap 12.7 mmol/L (3-11); BUN 13 mg/dL (7-18); CO2 19.3 mmol/L (21.0-32.0); CREATININE 0.9 mg/dL (0.70-1.30); Calcium 8.5 mg/dL (8.5-10.1); Chloride 106 mmol/L (98-107); Glucose 153 mg/dL (74-106); Potassium 4.4 mmol/L (3.5-5.1); Sodium 138 mmol/L (136-145)
[2021-09-22 18:27] LABS: Abs Immature Grans 0.02 10^3/uL (0.0-0.06); Absolute Basophil Count 0.03 10^3/uL (0.0-0.2); Absolute Eosinophil Count 0.27 10^3/uL (0.0-0.7); Absolute Lymphocyte Count 1.38 10^3/uL (1.2-3.4); Absolute Monocyte Count 0.21 10^3/uL (0.1-0.8); Absolute Neutrophil Count 3.38 10^3/uL (1.2-6.7); Basophils % 0.6; Eosinophils % 5.1; HCT 38.4 % (40.0-50.0); HGB 12.5 g/dL (13.5-17.5); Immature Grans % 0.4; Lymphocytes % 26.1; MCH 32.1 pg (27.0-33.0); MCHC 32.6 % (32.0-36.0); MCV 99 fL (80-95); MPV 11.2 fL (8.0-11.0); Neutrophils % 63.8; Platelet Count 266 10^3/uL (130-400); RBC 3.89 10^6/uL (4.36-5.78); RDW 13.2 % (11.8-14.1); RDW-SD 47.3 fL; WBC 5.29 10^3/uL (4.4-10.8)
[2021-09-22 18:53] LABS: ALT 57 U/L (16-63); AST 30 U/L (15-37); Albumin 3.3 g/dL (3.4-5.0); Alkaline Phosphatase 78 U/L (46-116); Anion Gap 9.2 mmol/L (3-11); BUN 14 mg/dL (7-18); Bilirubin, Total 0.5 mg/dL (0.2-1.0); CO2 24.8 mmol/L (21.0-32.0); Calcium 8.6 mg/dL (8.5-10.1); Chloride 105 mmol/L (98-107); Glucose 149 mg/dL (74-106); Potassium 4.1 mmol/L (3.5-5.1); Sodium 139 mmol/L (136-145); Total Protein 7.4 g/dL (6.4-8.2)
== END 2021-09-22 10:03 | disposition home or self-care (01) ==
LOC: LBN 10:02
PROVIDERS: PCP Nurse Practitioner Family; Visit Provider Nurse Practitioner Family
DX: I49.8 Other specified cardiac arrhythmias (principal); N39.0 Urinary tract infection, site not specified; E78.5 Hyperlipidemia, unspecified
CPT/HCPCS: 80048; 80053; 85025

== ENCOUNTER 2021-09-25 09:21 | Outpatient (REF) | payer MEDICARE, OTHER, SELFPAY ==
[2021-09-25 11:27] LABS: C Diff PCR Negative (Negative)
== END 2021-09-25 09:22 | disposition home or self-care (01) ==
LOC: LBN 09:21
PROVIDERS: PCP Nurse Practitioner Family; Visit Provider Nurse Practitioner Family
DX: R19.7 Diarrhea, unspecified (principal)
CPT/HCPCS: 87329; 87493; 82272; 87177

== ENCOUNTER 2021-09-27 20:56 | Outpatient (REF) | payer MEDICARE, OTHER, SELFPAY ==
[2021-09-27 21:18] LABS: Abs Immature Grans 0.02 10^3/uL (0.0-0.06); Absolute Basophil Count 0.03 10^3/uL (0.0-0.2); Absolute Eosinophil Count 0.24 10^3/uL (0.0-0.7); Absolute Lymphocyte Count 1.25 10^3/uL (1.2-3.4); Absolute Monocyte Count 0.24 10^3/uL (0.1-0.8); Absolute Neutrophil Count 3.69 10^3/uL (1.2-6.7); Basophils % 0.5; Eosinophils % 4.4; HCT 41.5 % (40.0-50.0); HGB 13.4 g/dL (13.5-17.5); Immature Grans % 0.4; Lymphocytes % 22.9; MCH 33.3 pg (27.0-33.0); MCHC 32.3 % (32.0-36.0); MCV 103 fL (80-95); Monocytes % 4.4; Neutrophils % 67.4; Platelet Count 176 10^3/uL (130-400); RBC 4.02 10^6/uL (4.36-5.78); RDW 13.3 % (11.8-14.1); RDW-SD 50.9 fL; WBC 5.47 10^3/uL (4.4-10.8)
[2021-09-27 21:36] LABS: Diff Comment PLT Morph Reviewed; Macrocytosis 2+
[2021-09-27 21:42] LABS: ALT 59 U/L (16-63); AST 34 U/L (15-37); Albumin 3.3 g/dL (3.4-5.0); Alkaline Phosphatase 85 U/L (46-116); Anion Gap 10.1 mmol/L (3-11); BUN 15 mg/dL (7-18); Bilirubin, Total 0.4 mg/dL (0.2-1.0); CO2 24.9 mmol/L (21.0-32.0); CREATININE 1.2 mg/dL (0.70-1.30); Calcium 8.8 mg/dL (8.5-10.1); Chloride 105 mmol/L (98-107); Estimated GFR 58.56 (mL/min/1.73m2); Glucose 160 mg/dL (74-106); Potassium 4.4 mmol/L (3.5-5.1); Sodium 140 mmol/L (136-145); Total Protein 7.5 g/dL (6.4-8.2)
== END 2021-09-27 20:57 | disposition home or self-care (01) ==
LOC: LBN 20:56
PROVIDERS: PCP Nurse Practitioner Family; Visit Provider Family Medicine
DX: I49.8 Other specified cardiac arrhythmias (principal); B96.20 Unspecified Escherichia coli [E. coli] as the cause of diseases classified elsewhere; M62.81 Muscle weakness (generalized)
CPT/HCPCS: 80053; 85025

== ENCOUNTER → 2021-11-07 10:43 | Outpatient (BNVA) | payer MEDICARE, OTHER, SELFPAY | PROVIDERS: PCP Nurse Practitioner Family; Referring Provider Nurse Practitioner Family; Visit Provider Psychiatry & Neurology Neurology | DX: Z86.73 Personal history of transient ischemic attack (TIA), and cerebral infarction without residual deficits (principal); I65.23 Occlusion and stenosis of bilateral carotid arteries; R41.3 Other amnesia | CPT/HCPCS: 99214 ==

== ENCOUNTER 2021-12-04 07:48 | Outpatient (CLI) | payer MEDICARE, OTHER, SELFPAY ==
--- NOTE | 2021-12-04 07:45 | RT.EKG_ITS ---
APPROVED REPORT Exam: Resting ECG Reason for Exam: CAD, tachy sara Patient Location: O HR:65 bpm ECG Measurements Heart Rate 65 AXIS CO 174 P 50 QRSd 90 QRS 19 QT 402 T 42 QTc 418 Conclusion Sinus rhythm...normal P axis, V-rate 50- 99 Normal Electrocardiogram
== END 2021-12-04 07:49 | disposition home or self-care (01) ==
LOC: DI.CARD 07:49
PROVIDERS: PCP Nurse Practitioner Family; Visit Provider Internal Medicine Cardiovascular Disease
DX: I25.10 Atherosclerotic heart disease of native coronary artery without angina pectoris (principal); I49.5 Sick sinus syndrome
CPT/HCPCS: 93010

== ENCOUNTER → 2021-12-04 13:16 | Outpatient (BNVA) | payer MEDICARE, OTHER, SELFPAY | PROVIDERS: PCP Nurse Practitioner Family; Referring Provider Nurse Practitioner Family; Visit Provider Internal Medicine Cardiovascular Disease | DX: I25.810 Atherosclerosis of coronary artery bypass graft(s) without angina pectoris (principal); E11.9 Type 2 diabetes mellitus without complications; I49.5 Sick sinus syndrome; Z95.2 Presence of prosthetic heart valve; E78.5 Hyperlipidemia, unspecified | CPT/HCPCS: 93005; 99203; 99214 ==

== ENCOUNTER 2022-01-06 13:39 | Outpatient (REF) | payer MEDICARE, OTHER, SELFPAY ==
[2022-01-06 14:58] LABS: Bilirubin Negative (Negative); Blood Moderate (Negative); Clarity Cloudy (Clear); Glucose 100 mg/dL (Negative); Ketones Negative (Negative); Leukocyte Esterase Moderate (Negative); Nitrite Positive (Negative); Specific Gravity >= 1.030 (1.005-1.025); Urobilinogen 0.2 EU/dL (Up TO 0.2); pH 5.5 (5-8)
[2022-01-06 15:10] LABS: Bacteria Few HPF (Negative); C & S Indicated? C&S Done As Ordered; Crystals Few Uric Acid HPF (Negative); Epithelial Cells Rare HPF (Negative); Mucus Moderate (Negative); WBC >50 HPF (0-5)
== END 2022-01-06 13:40 | disposition home or self-care (01) ==
LOC: LBN 13:39
PROVIDERS: PCP Nurse Practitioner Family; Visit Provider Nurse Practitioner Family
DX: N39.0 Urinary tract infection, site not specified (principal)
CPT/HCPCS: 87077; 81003; 81015; 87086; 87186

== ENCOUNTER 2022-01-23 17:52 | Outpatient (REF) | payer MEDICARE, OTHER, SELFPAY ==
[2022-01-23 18:49] LABS: Abs Immature Grans 0.02 10^3/uL (0.0-0.06); Absolute Basophil Count 0.04 10^3/uL (0.0-0.2); Absolute Eosinophil Count 0.21 10^3/uL (0.0-0.7); Absolute Lymphocyte Count 1.26 10^3/uL (1.2-3.4); Absolute Monocyte Count 0.17 10^3/uL (0.1-0.8); Absolute Neutrophil Count 4.06 10^3/uL (1.2-6.7); Basophils % 0.7; Eosinophils % 3.6; HCT 38.3 % (40.0-50.0); HGB 13.2 g/dL (13.5-17.5); Immature Grans % 0.3; Lymphocytes % 21.9; MCH 33.2 pg (27.0-33.0); MCHC 34.5 % (32.0-36.0); MCV 96 fL (80-95); MPV 11.9 fL (8.0-11.0); Neutrophils % 70.5; Platelet Count 220 10^3/uL (130-400); RBC 3.98 10^6/uL (4.36-5.78); RDW 13.4 % (11.8-14.1); RDW-SD 47.6 fL; WBC 5.76 10^3/uL (4.4-10.8)
[2022-01-23 19:19] LABS: Anion Gap 8.9 mmol/L (3-11); BUN 20 mg/dL (7-18); CO2 27.1 mmol/L (21.0-32.0); CREATININE 1.4 mg/dL (0.70-1.30); Calcium 9.1 mg/dL (8.5-10.1); Chloride 102 mmol/L (98-107); Estimated GFR 51.45 (mL/min/1.73m2); Glucose 171 mg/dL (74-106); Potassium 4.5 mmol/L (3.5-5.1); Sodium 138 mmol/L (136-145)
[2022-01-23 19:27] LABS: Hemoglobin A1C 8.2 % (<5.7)
== END 2022-01-23 17:53 | disposition home or self-care (01) ==
LOC: LBN 17:52
PROVIDERS: PCP Nurse Practitioner Family; Visit Provider Nurse Practitioner Family
DX: I49.8 Other specified cardiac arrhythmias (principal); E11.9 Type 2 diabetes mellitus without complications; E78.5 Hyperlipidemia, unspecified; I25.10 Atherosclerotic heart disease of native coronary artery without angina pectoris
CPT/HCPCS: 80048; 83036; 85025

== ENCOUNTER 2022-08-02 17:55 | Observation (INO) | payer MEDICARE, OTHER, SELFPAY ==
[2022-08-02 17:58] VITALS: BP 135/59; PULSE 102; RESP 18; TEMP 38; O2SAT 96
[2022-08-02 18:00] VITALS: PULSE 100
--- NOTE | 2022-08-02 18:00 | RT.EKG_ITS ---
APPROVED REPORT Exam: Resting ECG Reason for Exam: tachycardia Patient Location: E HR:100 bpm ECG Measurements Heart Rate 100 AXIS PA 179 P 64 QRSd 85 QRS 45 QT 345 T 26 QTc 445 Conclusion Sinus tachycardia...rate> 99 Probable left atrial enlargement...P >50mS, <-0.10mV V1 Borderline ST elevation, anterior leads...ST >0.15mV in V1-V4 Mild ST elevation V2,3 vs.prior EKG--pain free
--- NOTE | 2022-08-02 18:26 | ED.GENADUL_ITS ---
Discharge Plan Disposition Patient Disposition: Admit to [facility] Condition: Improving Discharge Details Clinical Impression: Fever Admit Date/Time: 08/02/22 20:17 Admit Provider: Tab Becker Attending Provider: Tab Becker Primary Care Provider: Unknown,Unknown ED Provider: Devi Lyman Discharge Data Discharge Date/Time-TO BE ENTERED AT DEPARTURE: 08/02/22 22:17 Medical Decision Making Head CT: NAD; CXR: NAD Patient's lactate could certainly be elevated from heatstroke if this is in fact when he had. Heatstroke is a little bit down on my differential as this elderly patient is in no apparent distress, his LFTs and CPK are normal. His rectal temperature was still elevated in the ED but not so much that we need to further cool him. His white cell count is not elevated. Patient is getting 30 cc/kg IV fluid. He reportedly has a history of congestive heart failure but is certainly not on any diuretics. I did discuss the case with Dr. Becker, the hospitalist. We will admit him for observation in case this is potentially early sepsis. Of note, the patient's adjusted body weight is 88 kg. This means his sepsis fluid bolus should be 2640 mL. ECG Data Interpretation: EKG: Sinus tach 100, left atrial enlargement, borderline ST elevation in V2 and V3 (PAIN FREE), slightly more pronounced versus 12/04/2021 HPI General Date/Time Provider Initiated Documentation: 08/02/22 18:26 . HPI Narrative: This 77-year-old male patient with a history of dementia comes in from his sister[place] camp with possible heat exhaustion. Reportedly ambulance was called because he fell and they needed help getting him up. He was reportedly confused on the scene and the ambulance reported his temperature was 103 degrees (this was not rectal). The patient tells me that he remembers being on his sister's porch and it was hot. He also remembers eating a cheeseburger. He really cannot provide much else for history except says that he feels fine and has no pain. He denies chest pain, shortness of breath, or abdominal pain. He has no headache. Related Data Home Medications Medication Instructions Recorded Confirmed acetaminophen 500 mg tablet 500 mg PO TID PRN 02/27/14 08/02/22 (Acetaminophen Extra Strength) aspirin 81 mg tablet,delayed 81 mg PO DAILY 11/07/21 08/02/22 release atorvastatin 40 mg tablet 40 mg PO QHS 11/07/21 08/02/22 bisacodyl 10 mg rectal suppository 10 mg AL DAILY PRN 11/07/21 08/02/22 clotrimazole 1 % topical cream 1 applic topical BID PRN 11/07/21 08/02/22 dextrose 40 % oral gel (Glucose 15 g PO Q15M PRN 11/07/21 08/02/22 Gel) glucagon 1 mg injection kit See Rx Instructions IM .COMPLEX 11/07/21 08/02/22 magnesium hydroxide 400 mg/5 mL 30 ml PO DAILY PRN 11/07/21 08/02/22 oral suspension multivitamin 1 tab PO DAILY 11/07/21 08/02/22 sodium phosphates 19 gram-7 118 ml AL ONCE PRN 11/07/21 08/02/22 gram/197 mL enema (Fleet Enema Extra) magnesium oxide 400 mg (241.3 mg 400 mg PO BID #0 tabs 08/04/22 magnesium) tablet Previous Rx's Medication Instructions Recorded magnesium oxide 400 mg (241.3 mg 400 mg PO BID #0 tabs 08/04/22 magnesium) tablet Allergies Allergy/AdvReac Type Severity Reaction Status Date / Time No Known Allergies Allergy Verified 12/04/21 13:39 General Stated Complaint: [id number] CLEMENTINA: 3 Review of Systems Unobtainable due to mental status (dementia; ROS not accurate) Constitutional Constitutional: Reports as per HPI, Denies chills, Denies fever(s) and Denies headache(s) Eyes Eyes: Denies blurry vision and Reports other (no redness) ENT Ears, Nose, Mouth, and Throat: Denies dizziness, Denies otalgia, Denies head ache(s), Denies nasal congestion, Denies nasal discharge, Denies neck pain and Denies odynophagia Cardiovascular Cardiovascular: Denies chest pain, Denies palpitations and Denies dyspnea Respiratory Respiratory: Denies cough and Denies dyspnea Gastrointestinal Gastrointestinal: Denies abdominal pain, Denies diarrhea, Denies nausea, Denies odynophagia and Denies vomiting Genitourinary Genitourinary: Denies difficulty urinating and Denies dysuria Musculoskeletal Musculoskeletal: Denies myalgias, Denies muscle weakness, Denies neck pain and Denies numbness Integumentary/Breasts Skin/Breast: Denies erythema and Denies rash Neurologic Neurologic: Denies dizziness, Denies headache(s) and Denies numbness Endocrine Endocrine: Denies palpitations PFSH All Active Problems Anemia, mild (Chronic) 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 Aortic valve replacement 04/2013 b. left THR 10/04/2013 c. Left TKR 6-7 years ago Hypertension (Chronic) Medical History BPH (benign prostatic hyperplasia) CHF (congestive heart failure) Diabetes Dizziness and giddiness GERD (gastroesophageal reflux disease) HLD (hyperlipidemia) Hyperglycemia Neuropathy Obesity Psoriasis Urinary incontinence Surgical History H/O hernia repair Hx of CABG S/P appendectomy S/P knee replacement Social History Smoking/Tobacco Use Status: Former Tobacco Use Smoking risk assessment performed?: Yes Drug use: Never Substance use type: does not use Do you feel safe at home: Yes Do you feel safe in your relationship?: Yes Additional Social history: Current resident of [facility] Exam Narrative Exam Narrative: Pleasantly demented elderly white male Const General: no acute distress, well developed, well groomed and not in acute distress Nutritional Appearance: well nourished Orientation: alert and oriented x3 HENMT Head: normocephalic and atraumatic Ears: external ears normal Mouth: oropharynx normal and moist mucous membranes Throat: posterior oropharynx normal Eyes Conjunctivae: conjunctivae normal Neck Neck: full ROM and supple Chest Chest: normal inspection of the chest Resp Effort & Inspection: normal respiratory effort Auscultation: clear to auscultation bilaterally Cardio Rate: regular rate Rhythm: regular rhythm Heart Sounds: no murmurs and no rubs GI Inspection: normal to inspection Palpation: soft, nontender and other (non distended) Auscultation: normal bowel sounds Skin General skin exam: no rashes or lesions noted and other (pink, warm, dry) Neuro General: patient alert, patient awake and patient oriented x3 Speech: speech normal Motor: other (ORELLANA) Sensory Exam: no sensory deficits noted Extrem General: normal to inspection, full ROM and pedal edema present Psych Mental Status: mental status grossly normal Speech and Movement: speech and movement normal Affect: normal affect Course Vital Signs Vital signs: Vital Signs Temperature 38 C H 08/02/22 17:58 Pulse 102 H 08/02/22 17:58 Respiratory Rate 18 08/02/22 17:58 Blood Pressure 135/59 L 08/02/22 17:58 Pulse Oximetry 96 08/02/22 17:58 Temperature 38 C H 08/02/22 17:58 Temperature Source Rectal 08/02/22 17:58 Pulse 102 H 08/02/22 17:58 Respiratory Rate 18 08/02/22 17:58 Blood Pressure 135/59 L 08/02/22 17:58 Blood Pressure Position Supine 08/02/22 17:58 Pulse Oximetry 96 08/02/22 17:58 Oxygen Delivery Method Room Air 08/02/22 17:58 Oxygen Flow Rate 0 08/02/22 17:58 Pain Level 0 08/02/22 17:58 Comment fan on bedside for cooling 08/02/22 17:58
--- NOTE | 2022-08-02 18:30 | DI.CT_ITS ---
Exam(s) CT HEAD WO EXAM: CT HEAD WO CLINICAL HISTORY: syncope, hit head. TECHNIQUE: Imaging Protocol: Axial computed tomography images with coronal and sagittal reformatted images were created and reviewed COMPARISON: CT CT HEAD WO from 09/10/2021 FINDINGS: There are no skull fractures. There is a fluid level in left sphenoid sinus again noted, unchanged fr om 09/10/2021. No other fluid in the paranasal sinuses and mastoid air cells. Again noted is heavy calcification within the right vertebral artery and basilar artery. Calcificati on also again noted in the internal carotid arteries at the skull base. There is no evidence of intracranial hemorrhage, mass effect, or shift of midline structures. There are no extra-axial fluid collections. The ventricles are not enlarged or shifted and there is no blo od within the ventricular system nor within the basal cisterns. Again noted is bilateral prominent periventricular hypodensity consistent with chronic small vessel d isease. Small lacune in the left cerebellar hemisphere noted. Symmetrical atrophy again noted. IMPRESSION: Abundant bilateral periventricular chronic small-vessel white matter disease again noted. No evidenc e of intracranial hemorrhage. If clinically indicated follow-up MRI with diffusion imaging can be performed for added sensitivity a nd specificity. RADIATION DOSE DELIVERED: 767.89mGy.cm Total DLP DATA REPOSITORY: All CT scans at this facility are submitted to the National Radiology Data Registry (NRDR) Dose Index Registry (DIR) with the [employer] (ACR). RADIATION OPTIMIZATION: All CT scans at this facility use at least one of these dose optimization te chniques: automated exposure control; mA and/or kV adjustment per patient size (includes targeted exa ms where dose is matched to clinical indication); or iterative reconstruction.
--- NOTE | 2022-08-02 18:32 | DI.RAD_ITS ---
Exam(s) XR CHEST 2V PA LATERAL EXAM: XR CHEST 2V PA LATERAL CLINICAL HISTORY: fever. TECHNIQUE: 2D digital imaging was performed. COMPARISON: CR,XR XR PORTABLE CHEST AP from 09/07/2021 FINDINGS: 2 views: Sternotomy wires again noted. Prosthetic aortic valve again noted. Heart size is upper normal. The mediastinum is not widened. Lungs are clear. No infiltrates nor pleural effusions. No evidence of pulmonary edema. IMPRESSION: No acute pulmonary findings. Sternotomy wires and prosthetic aortic valve again noted. DATA REPOSITORY: RADIATION DOSE DELIVERED:
[2022-08-02 18:45] VITALS: RESP 16
[2022-08-02] MEDS: Normal Saline 250 ML 500 ML IV (18:50)
[2022-08-02 19:07] LABS: Abs Immature Grans 0.02 10^3/uL (0.0-0.06); Absolute Basophil Count 0.01 10^3/uL (0.0-0.2); Absolute Eosinophil Count 0.11 10^3/uL (0.0-0.7); Absolute Lymphocyte Count 0.86 10^3/uL (1.2-3.4); Absolute Monocyte Count 0.11 10^3/uL (0.1-0.8); Absolute Neutrophil Count 4.65 10^3/uL (1.2-6.7); Basophils % 0.2; Eosinophils % 1.9; HCT 36.2 % (40.0-50.0); HGB 12.8 g/dL (13.5-17.5); Immature Grans % 0.3; Lymphocytes % 14.9; MCHC 35.4 % (32.0-36.0); MCV 96 fL (80-95); MPV 10.8 fL (8.0-11.0); Monocytes % 1.9; Neutrophils % 80.8; Platelet Count 160 10^3/uL (130-400); RBC 3.76 10^6/uL (4.36-5.78); RDW 13.2 % (11.8-14.1); RDW-SD 46.6 fL; WBC 5.76 10^3/uL (4.4-10.8)
[2022-08-02 19:28] LABS: ALT 27 U/L (16-63); AST 14 U/L (15-37); Albumin 3.4 g/dL (3.4-5.0); Alkaline Phosphatase 105 U/L (46-116); Anion Gap 8.4 mmol/L (3-11); BUN 20 mg/dL (7-18); Bilirubin, Total 0.5 mg/dL (0.2-1.0); CO2 26.6 mmol/L (21.0-32.0); CREATININE 1.5 mg/dL (0.70-1.30); Calcium 9.3 mg/dL (8.5-10.1); Chloride 103 mmol/L (98-107); Estimated GFR 47.06 (mL/min/1.73m2); Glucose 408 mg/dL (74-106); Magnesium 1.7 mg/dL (1.8-2.4); Potassium 4.2 mmol/L (3.5-5.1); Sodium 138 mmol/L (136-145); Total Protein 7.6 g/dL (6.4-8.2); Troponin I < 50 ng/L (<or=60)
--- NOTE | 2022-08-02 19:31 | DI.VRAD_ITS ---
PROCEDURE INFORMATION: Exam: CT Head Without Contrast Exam date and time: 08/02/2022 7:07 PM Age: 77 years old Clinical indication: Injury or trauma; Fall; Concussion/head injury; Additional info: Syncope, hit head TECHNIQUE: Imaging protocol: Computed tomography of the head without contrast. Radiation optimization: All CT scans at this facility use at least one of these dose optimization techniques: automated exposure control; mA and/or kV adjustment per patient size (includes targeted exams where dose is matched to clinical indication); or iterative reconstruction. COMPARISON: MR BRAIN WO 09/11/2021 11:37 AM FINDINGS: Brain: There is stable moderate generalized cerebral atrophy. Cerebral ventricles: Bilateral frontal lobe periventricular hypoattenuation is compatible with chronic microvascular ischemic changes. No intracranial mass, hemorrhage or evidence of acute infarcts. Paranasal sinuses: There is mild mucosal thickening in the bilateral ethmoid air cells. Small amount of fluid is present in the left sphenoid sinus locule Mastoid air cells: Visualized mastoid air cells are well aerated. Bones/joints: Unremarkable. No acute fracture. Soft tissues: Unremarkable. IMPRESSION: 1. No acute intracranial abnormality. Chronic cerebral atrophy and white matter changes noted 2. Mild findings of paranasal sinusitis Dictated and Authenticated by: David Eckert MD. Ordering:KERON Quinonez MD
[2022-08-02 19:32] LABS: Bilirubin Negative (Negative); Blood Negative (Negative); Clarity Clear (Clear); Glucose >=1000 mg/dL (Negative); Ketones Negative (Negative); Leukocyte Esterase Negative (Negative); Nitrite Negative (Negative); Specific Gravity 1.025 (1.005-1.025); Urobilinogen 0.2 mg/dL (Up to 0.2); pH 5.5 (5-8)
--- NOTE | 2022-08-02 19:32 | DI.VRAD_ITS ---
PROCEDURE INFORMATION: Exam: XR Chest Exam date and time: 08/02/2022 7:13 PM Age: 77 years old Clinical indication: Fever TECHNIQUE: Imaging protocol: Radiologic exam of the chest. Views: 2 views. COMPARISON: CR XR PORTABLE CHEST AP 09/07/2021 7:18 PM FINDINGS: Lungs: Unremarkable. No consolidation. Pleural spaces: Unremarkable. No pleural effusion. No pneumothorax. Heart/Mediastinum: Normal-size Bones/joints: Sternotomy wires and prosthetic aortic valve noted. Degenerative changes of the spine and shoulders noted IMPRESSION: No acute disease Dictated and Authenticated by: David Eckert MD. Ordering:KERON Quinonez MD
[2022-08-02 19:53] LABS: Creatine Kinase 30 U/L (39-308)
[2022-08-02 21:11] LABS: Source Nasal/Nares
--- NOTE | 2022-08-02 21:45 | W.PM.HP.N ---
Date of service: 08/02/22 Time of Service: 22:47 Assessment and Plan Assessment and plan (1) Fever: Status: Acute Assessment and plan: Alvarez presents with a high fever and confusion in the field, low grade fever here. This has resolved and he denies symptoms, though his dementia complicates the history and ongoing assesment. He does have a high lactate. There is no sign of infection, and I do think that heat-related illness could was the most likely cause of his initial presentation. That said, I do agree that admission for observation is the most prudent management. Blood cultures are pending. (2) CAD (coronary artery disease): Status: Chronic Assessment and plan: He is on ASA and atorvastatin, continue. His EKG did look slightly different than previous, but this is most likely simply the rate associated with his fever. He had no chest pain and troponins reassuing. There is some lack of clarity if he passed out or just became confused. Given this I think tele prudent. (3) Type 2 diabetes mellitus: Status: Acute Assessment and plan: He is hyperglycemic upon presentation. Interestingly his last hgb A1c was 8.6% 01/2022 and he is not on diabetic medications. Will cover with basal insulin and sliding scale while he is here to try to keep his sugars below 180ish. A1c pending. (4) Progressive dementia with uncertain etiology: Status: Acute Assessment and plan: As above this complicates his history. Per report he is at his baseline curently (5) Renal insufficiency: Status: Chronic Assessment and plan: Creatinine stable from last fall, though his creatnine had been closer to 1 prior to that. This likely represents a progression of his renal disease with inadequate DM control. Monitor. (6) Anemia, mild: Status: Acute Assessment and plan: Similar to baseline. Monitor, outpatient follow up (7) DVT prophylaxis: Status: Acute Assessment and plan: LMWH (8) Discharge planning issues: Status: Acute Assessment and plan: DNR/DNI confirmed in SNF records. History of Present Illness History of Present Illness Chief Complaint: fall, fever, confusion Narrative: 77 yo M, resident of [facility] with dementia as well as a history of CAD, s/p bioprosthetic AVR, cerebrovascular disease, and type 2 diabetes. He was brought to the emergency room after he had a fall and increase confusion while visiting a family camp in [place] today. He states he remembers being quite hot. He doesn't remember exactly what happened but states he passed out, though no syncope reported by family. When EMS arrived they took a non-rectal temperature of 103. He was brought to the emergency room with a diagnosis of heat stroke. We don't have record of cold immersion or other therapy given in the field. In the emergency room his Tmax was 100.4. He was denying any complaints in the emergency room, and felt back to himself. Currently Alvarez can't recall any more specifics than above. He denies feeling fevers/chills/malaise. He is hungry and thirsty. No dysuria, but is urinating frequently. No cold symptoms or cough or SOB. No rashes or pains that are bothering him. No headache. Review of Systems Constitutional Constitutional: Denies anorexia, Reports lethargy and Denies weakness Eyes Eyes: Denies change in vision and Denies irritation ENT Ears, Nose, Mouth, and Throat: Denies dysphagia, Denies dizziness, Denies nasal congestion, Denies nasal discharge and Denies sore throat Cardiovascular Cardiovascular: Denies palpitations and Denies orthopnea Respiratory Respiratory: Denies cough, Denies excessive phlegm production and Denies wheezing Gastrointestinal Gastrointestinal: Denies abdominal pain, Denies change in stool character, Denies constipation, Denies dysphagia, Denies heartburn and Denies vomiting Genitourinary Genitourinary: Denies hematuria and Denies dysuria Musculoskeletal Musculoskeletal: Denies arthralgias Integumentary/Breasts Skin/Breast: Denies rash and Denies skin ulcer Neurologic Neurologic: Denies dizziness, Reports memory loss, Denies sensory deficit and Denies weakness Psychiatric Psychiatric: Denies depression, Reports memory loss and Denies mood swings Endocrine Endocrine: Denies palpitations Hematologic/Lymphatic Hematologic/Lymphatic: Denies easy bleeding Allergic/Immunologic Allergic/Immunologic: Denies wheezing PFSH All Active Problems Discharge planning issues (Acute) DVT prophylaxis (Acute) Anemia, mild (Acute) Renal insufficiency (Chronic) Fever (Acute) 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 Aortic valve replacement 04/2013 b. left THR 10/04/2013 c. Left TKR 6-7 years ago Hypertension (Chronic) Medical History BPH (benign prostatic hyperplasia) CHF (congestive heart failure) Diabetes Dizziness and giddiness GERD (gastroesophageal reflux disease) HLD (hyperlipidemia) Hyperglycemia Neuropathy Obesity Psoriasis Urinary incontinence Surgical History H/O hernia repair Hx of CABG S/P appendectomy S/P knee replacement Social History (Updated 08/02/22 @ 22:58 by Tab Becker) Smoking/Tobacco Use Status: Former Tobacco Use Smoking risk assessment performed?: Yes Drug use: Never Substance use type: does not use Do you feel safe at home: Yes Do you feel safe in your relationship?: Yes Additional Social history: Current resident of [facility] Allergies and Home Medications Allergies Allergy/AdvReac Type Severity Reaction Status Date / Time No Known Allergies Allergy Verified 12/04/21 13:39 Home Medications Medication Instructions Recorded Confirmed Type acetaminophen 500 mg tablet 500 mg PO TID PRN 02/27/14 08/02/22 History (Acetaminophen Extra Strength) aspirin 81 mg tablet,delayed 81 mg PO DAILY 11/07/21 08/02/22 History release atorvastatin 40 mg tablet 40 mg PO QHS 11/07/21 08/02/22 History bisacodyl 10 mg rectal suppository 10 mg PA DAILY PRN 11/07/21 08/02/22 History clotrimazole 1 % topical cream 1 applic topical BID PRN 11/07/21 08/02/22 History dextrose 40 % oral gel (Glucose 15 g PO Q15M PRN 11/07/21 08/02/22 History Gel) glucagon 1 mg injection kit See Rx Instructions IM .COMPLEX 11/07/21 08/02/22 History magnesium hydroxide 400 mg/5 mL 30 ml PO DAILY PRN 11/07/21 08/02/22 History oral suspension multivitamin 1 tab PO DAILY 11/07/21 08/02/22 History sodium phosphates 19 gram-7 118 ml PA ONCE PRN 11/07/21 08/02/22 History gram/197 mL enema (Fleet Enema Extra) Exam Narrative Exam Narrative: GEN: Alert and oriented to town but not place, self. He did recall the month and year after some time thinking. Pleasant and cooperative, but clear memory deficit. No acute distress at rest. HEENT: Head atraumatic. Conjunctiva clear, no icterus. PEERL, EOMI. no rhinorrhea. MMM, OP benign. Neck is supple with no masses or lymphadenopathy, trachea midline LUNGS: CTAB with normal effort CV: RRR with 1/6 systolic murmur. no gallops, or rubs. ABD: +BS, softly distended, 7cm umbilical hernia. No tenderness EXT: no cyanosis, clubbing. Trace schwarz edema bilaterally MSK: No joint redness or swelling NEURO: CN 2-12 grossly intact. Normal movement of 4 extremities. Normal speech and coordination. course tremor with using hands SKIN: No rashes or open wounds, some splotchy red patches where skin irritated. PSYCH: normal mood and affect Results Imaging Chest x-ray: report reviewed (No acute disease) EKG: image reviewed (sinus tachycardia 100, nl axis, intervals. Slight ST segment elevation V1-V4, borderline, was not there 12/04/21 EKG) Imaging Studies: CT head w/o: No acute intracranial abnormality.? Chronic cerebral atrophy and white matter changes noted Labs 08/02/22 18:59 08/02/22 18:59 Labs: Laboratory Results - last 24 hr 08/02/22 08/02/22 08/02/22 18:59 18:59 18:59 WBC 5.76 RBC 3.76 L Hgb 12.8 L Hct 36.2 L MCV 96 H MCH 34.0 H MCHC 35.4 RDW 13.2 Plt Count 160 MPV 10.8 Immature Gran % 0.3 Neutrophils % 80.8 Lymphocytes % 14.9 Monocytes % 1.9 Eosinophils % 1.9 Basophils % 0.2 Nucleated RBC % 0.0 Absolute Neutrophils 4.65 Absolute Lymphocytes 0.86 L Absolute Monocytes 0.11 Absolute Eosinophils 0.11 Absolute Basophils 0.01 VBG Lactate 3.0 H* Sodium 138 Potassium 4.2 Chloride 103 Carbon Dioxide 26.6 Anion Gap 8.4 BUN 20 H Creatinine 1.5 H Est GFR (CKD-EPI 2020) 47.06 Glucose 408 H Calcium 9.3 Magnesium 1.7 L Total Bilirubin 0.5 AST 14 L ALT 27 Alkaline Phosphatase 105 Creatine Kinase Troponin I < 50 Total Protein 7.6 Albumin 3.4 Urine Color Urine Clarity Urine pH Ur Specific [place] Urine Protein Urine Ketones Urine Blood Urine Nitrite Urine Bilirubin Urine Urobilinogen Ur Leukocyte Esterase Urine Glucose COVID-19 Source 08/02/22 08/02/22 08/02/22 18:59 19:22 19:43 WBC RBC Hgb Hct MCV MCH MCHC RDW Plt Count MPV Immature Gran % Neutrophils % Lymphocytes % Monocytes % Eosinophils % Basophils % Nucleated RBC % Absolute Neutrophils Absolute Lymphocytes Absolute Monocytes Absolute Eosinophils Absolute Basophils VBG Lactate Sodium Potassium Chloride Carbon Dioxide Anion Gap BUN Creatinine Est GFR (CKD-EPI 2020) Glucose Calcium Magnesium Total Bilirubin AST ALT Alkaline Phosphatase Creatine Kinase 30 L Troponin I Total Protein Albumin Urine Color Yellow Cancelled Urine Clarity Clear Cancelled Urine pH 5.5 Cancelled Ur Specific [place] 1.025 Cancelled Urine Protein Negative Cancelled Urine Ketones Negative Cancelled Urine Blood Negative Cancelled Urine Nitrite Negative Cancelled Urine Bilirubin Negative Cancelled Urine Urobilinogen 0.2 Cancelled Ur Leukocyte Esterase Negative Cancelled Urine Glucose >=1000 H Cancelled COVID-19 Source 08/02/22 21:05 WBC RBC Hgb Hct MCV MCH MCHC RDW Plt Count MPV Immature Gran % Neutrophils % Lymphocytes % Monocytes % Eosinophils % Basophils % Nucleated RBC % Absolute Neutrophils Absolute Lymphocytes Absolute Monocytes Absolute Eosinophils Absolute Basophils VBG Lactate Sodium Potassium Chloride Carbon Dioxide Anion Gap BUN Creatinine Est GFR (CKD-EPI 2020) Glucose Calcium Magnesium Total Bilirubin AST ALT Alkaline Phosphatase Creatine Kinase Troponin I Total Protein Albumin Urine Color Urine Clarity Urine pH Ur Specific [place] Urine Protein Urine Ketones Urine Blood Urine Nitrite Urine Bilirubin Urine Urobilinogen Ur Leukocyte Esterase Urine Glucose COVID-19 Source Nasal/Nares Last Vital Signs Temp 38 C H 08/02/22 17:58 Pulse 102 H 08/02/22 17:58 Resp 16 08/02/22 18:45 BP 135/59 L 08/02/22 17:58 Pulse Ox 96 04/14/23 17:58 Time Spent Time spent with Patient: 55-74 minutes Time was spent: preparing to see the patient(eg.review tests), obtaining and/or reviewing separately otained hiistory, ordering medications,tests, procedures, referring, communicating with other health daycare worker, indepentently interpreting results and counseling the patient
[2022-08-02 21:53] LABS: COVID-19 PCR Negative (Negative)
[2022-08-02] MEDS: Normal Saline 1,000 ML 2300 ML IV (21:54)
[2022-08-02 22:03] VITALS: BP 145/71; PULSE 73; RESP 15; TEMP 36.6; O2SAT 96
[2022-08-02 23:08] LABS: Troponin I < 50 ng/L (<or=60)
[2022-08-02] MEDS: Atorvastatin 40 MG TAB PO (23:09)
[2022-08-02] MEDS: Enoxaparin 40 MG/0.4 ML SYR SC (23:10)
[2022-08-02] MEDS: Insulin Glargine 300 UNITS/3 ML PEN 20 UNITS SC (23:10)
[2022-08-02 23:53] VITALS: PULSE 71
[2022-08-03] VITALS (8 sets, daily range): BP systolic 131–161; BP diastolic 64–84; PULSE 54–79; RESP 18; TEMP 36.3–37.1; O2SAT 94–99
[2022-08-03 05:50] LABS: Lactate 1.5 mmol/L (0.6-1.4)
[2022-08-03 05:52] LABS: Abs Immature Grans 0.02 10^3/uL (0.0-0.06); Absolute Basophil Count 0.01 10^3/uL (0.0-0.2); Absolute Eosinophil Count 0.18 10^3/uL (0.0-0.7); Absolute Lymphocyte Count 1.17 10^3/uL (1.2-3.4); Absolute Monocyte Count 0.13 10^3/uL (0.1-0.8); Absolute Neutrophil Count 3.34 10^3/uL (1.2-6.7); Basophils % 0.2; Eosinophils % 3.7; HCT 31.3 % (40.0-50.0); HGB 11.2 g/dL (13.5-17.5); Immature Grans % 0.4; Lymphocytes % 24.1; MCH 34.1 pg (27.0-33.0); MCHC 35.8 % (32.0-36.0); MCV 95 fL (80-95); MPV 10.5 fL (8.0-11.0); Monocytes % 2.7; Neutrophils % 68.9; Platelet Count 139 10^3/uL (130-400); RBC 3.28 10^6/uL (4.36-5.78); RDW 13.1 % (11.8-14.1); RDW-SD 45.4 fL; WBC 4.85 10^3/uL (4.4-10.8)
[2022-08-03 06:11] LABS: Anion Gap 7.4 mmol/L (3-11); BUN 15 mg/dL (7-18); CO2 25.6 mmol/L (21.0-32.0); Chloride 106 mmol/L (98-107); Estimated GFR 76.56 (mL/min/1.73m2); Glucose 214 mg/dL (74-106); Magnesium 1.7 mg/dL (1.8-2.4); Potassium 3.8 mmol/L (3.5-5.1); Sodium 139 mmol/L (136-145)
[2022-08-03 06:39] LABS: Hemoglobin A1C 9.8 % (<5.7)
--- NOTE | 2022-08-03 07:20 | NUR.NOTE ---
Nursing Note: Accessed chart to determine orders for EKG and to determine whether or not one needs to be cancelled.
[2022-08-03] MEDS: Multivitamin TAB 1 TAB PO (08:47)
[2022-08-03] MEDS: Insulin Aspart 300 UNITS/3 ML PEN SC ×3 (08:47→17:02)
[2022-08-03] MEDS: Aspirin E.C. 81 MG TABEC PO (08:47)
[2022-08-03] MEDS: Magnesium Oxide 400 MG TAB PO ×2 (08:47→20:13)
--- NOTE | 2022-08-03 11:41 | W.PM.PROGNOT ---
Date of Service Date of service: 08/03/22 Time of Service: 11:41 Assessment and Plan Assessment and plan (1) Fever: Status: Acute Assessment and plan: No fevers. lactate down to 1.5 BC pending, MRSA pending (2) CAD (coronary artery disease): Status: Chronic Assessment and plan: continue ASA and atorvastatin; continue tele Troponin negative (3) Type 2 diabetes mellitus: Status: Acute Assessment and plan: Last hgb A1c was 8.6% 01/2022 and he is not on diabetic medications. Continue basal insulin and sliding scale while he is here to try to keep his sugars below 180ish. A1C up to 9.8 Glucose today 214, continue Lantus (4) Progressive dementia with uncertain etiology: Status: Acute Assessment and plan: He is at his baseline curently (5) Renal insufficiency: Status: Chronic Assessment and plan: Creatinine stable from last fall, though his creatnine had been closer to 1 prior to that. This likely represents a progression of his renal disease with inadequate DM control. Monitor. (6) Anemia, mild: Status: Acute Assessment and plan: Similar to baseline. Monitor, outpatient follow up Hematest pending (7) DVT prophylaxis: Status: Acute Assessment and plan: LMWH (8) Discharge planning issues: Status: Acute Assessment and plan: DNR/DNI confirmed in SNF records. Medically stable and able to return to [facility], however they are unable to take him today discussed with Dr Segal Subjective Subjective Patient reports: no new complaints, feels better, tolerating a regular diet and afebrile; denies diarrhea or vomiting Exam Narrative Exam Narrative: GEN: Alert and oriented to place, self. He did recall the month and year. Pleasant and cooperative, but clear memory deficit. No acute distress at rest. HEENT: Head atraumatic. Conjunctiva clear, no icterus. PERRL, EOMI. no rhinorrhea. MMM, Neck is supple with no masses or lymphadenopathy, trachea midline LUNGS: CTAB with normal effort CV: RRR with 1/6 systolic murmur. no gallops, or rubs. ABD: +BS, softly distended, 7 cm umbilical hernia. No tenderness EXT: no cyanosis, clubbing. Trace schwarz edema bilaterally MSK: No joint redness or swelling NEURO: CN 2-12 grossly intact. Normal movement of 4 extremities. Normal speech and coordination. course tremor with using hands SKIN: No rashes or open wounds, some splotchy red patches where skin irritated. PSYCH: normal mood and affect Objective Last Vital Signs Temp 36.4 C L 08/03/22 11:21 Pulse 60 08/03/22 11:21 Resp 18 08/03/22 11:21 BP 148/73 H 08/03/22 11:21 Pulse Ox 99 08/03/22 11:21 Laboratory Results - last 24 hr 08/02/22 08/02/22 08/02/22 18:59 18:59 18:59 WBC 5.76 RBC 3.76 L Hgb 12.8 L Hct 36.2 L MCV 96 H MCH 34.0 H MCHC 35.4 RDW 13.2 Plt Count 160 MPV 10.8 Immature Gran % 0.3 Neutrophils % 80.8 Lymphocytes % 14.9 Monocytes % 1.9 Eosinophils % 1.9 Basophils % 0.2 Nucleated RBC % 0.0 Absolute Neutrophils 4.65 Absolute Lymphocytes 0.86 L Absolute Monocytes 0.11 Absolute Eosinophils 0.11 Absolute Basophils 0.01 VBG Lactate 3.0 H* Sodium 138 Potassium 4.2 Chloride 103 Carbon Dioxide 26.6 Anion Gap 8.4 BUN 20 H Creatinine 1.5 H Est GFR (CKD-EPI 2020) 47.06 Glucose 408 H Hemoglobin A1c Calcium 9.3 Magnesium 1.7 L Total Bilirubin 0.5 AST 14 L ALT 27 Alkaline Phosphatase 105 Creatine Kinase Troponin I < 50 Total Protein 7.6 Albumin 3.4 Urine Color Urine Clarity Urine pH Ur Specific [place] Urine Protein Urine Ketones Urine Blood Urine Nitrite Urine Bilirubin Urine Urobilinogen Ur Leukocyte Esterase Urine Glucose COVID-19 Source SARS-CoV-2 (PCR) 08/02/22 08/02/22 08/02/22 18:59 19:22 19:43 WBC RBC Hgb Hct MCV MCH MCHC RDW Plt Count MPV Immature Gran % Neutrophils % Lymphocytes % Monocytes % Eosinophils % Basophils % Nucleated RBC % Absolute Neutrophils Absolute Lymphocytes Absolute Monocytes Absolute Eosinophils Absolute Basophils VBG Lactate Sodium Potassium Chloride Carbon Dioxide Anion Gap BUN Creatinine Est GFR (CKD-EPI 2020) Glucose Hemoglobin A1c Calcium Magnesium Total Bilirubin AST ALT Alkaline Phosphatase Creatine Kinase 30 L Troponin I Total Protein Albumin Urine Color Yellow Cancelled Urine Clarity Clear Cancelled Urine pH 5.5 Cancelled Ur Specific [place] 1.025 Cancelled Urine Protein Negative Cancelled Urine Ketones Negative Cancelled Urine Blood Negative Cancelled Urine Nitrite Negative Cancelled Urine Bilirubin Negative Cancelled Urine Urobilinogen 0.2 Cancelled Ur Leukocyte Esterase Negative Cancelled Urine Glucose >=1000 H Cancelled COVID-19 Source SARS-CoV-2 (PCR) 08/02/22 08/02/22 08/03/22 21:05 22:30 05:45 WBC RBC Hgb Hct MCV MCH MCHC RDW Plt Count MPV Immature Gran % Neutrophils % Lymphocytes % Monocytes % Eosinophils % Basophils % Nucleated RBC % Absolute Neutrophils Absolute Lymphocytes Absolute Monocytes Absolute Eosinophils Absolute Basophils VBG Lactate Sodium 139 Potassium 3.8 Chloride 106 Carbon Dioxide 25.6 Anion Gap 7.4 BUN 15 Creatinine 1.0 Est GFR (CKD-EPI 2020) 76.56 Glucose 214 H Hemoglobin A1c Calcium 8.0 L Magnesium 1.7 L Total Bilirubin AST ALT Alkaline Phosphatase Creatine Kinase Troponin I < 50 Total Protein Albumin Urine Color Urine Clarity Urine pH Ur Specific [place] Urine Protein Urine Ketones Urine Blood Urine Nitrite Urine Bilirubin Urine Urobilinogen Ur Leukocyte Esterase Urine Glucose COVID- Source Nasal/Nares SARS-CoV-2 (PCR) Negative 08/03/22 08/03/22 08/03/22 05:45 05:45 05:45 WBC 4.85 RBC 3.28 L Hgb 11.2 L Hct 31.3 L MCV 95 MCH 34.1 H MCHC 35.8 RDW 13.1 Plt Count 139 MPV 10.5 Immature Gran % 0.4 Neutrophils % 68.9 Lymphocytes % 24.1 Monocytes % 2.7 Eosinophils % 3.7 Basophils % 0.2 Nucleated RBC % 0.0 Absolute Neutrophils 3.34 Absolute Lymphocytes 1.17 L Absolute Monocytes 0.13 Absolute Eosinophils 0.18 Absolute Basophils 0.01 VBG Lactate 1.5 H Sodium Potassium Chloride Carbon Dioxide Anion Gap BUN Creatinine Est GFR (CKD-EPI 2020) Glucose Hemoglobin A1c 9.8 H Calcium Magnesium Total Bilirubin AST ALT Alkaline Phosphatase Creatine Kinase Troponin I Total Protein Albumin Urine Color Urine Clarity Urine pH Ur Specific [place] Urine Protein Urine Ketones Urine Blood Urine Nitrite Urine Bilirubin Urine Urobilinogen Ur Leukocyte Esterase Urine Glucose COVID-19 Source SARS-CoV-2 (PCR) Time Spent with Patient Time Spent with Patient: 25-34 minutes Time was spent: preparing to see the patient(eg.review tests), ordering medications,tests, procedures, referring, communicating with other health inspector health care facilities, indepentently interpreting results, counseling the patient and care coordination
--- NOTE | 2022-08-03 12:15 | RT.EKG_ITS ---
APPROVED REPORT Exam: Resting ECG Reason for Exam: Bradycardia Patient Location: I HR:64 bpm ECG Measurements Heart Rate 64 AXIS ME 182 P 64 QRSd 91 QRS 33 QT 415 T 40 QTc 428 Conclusion Sinus rhythm...normal P axis, V-rate 50- 99 Probable left atrial enlargement...P >50mS, <-0.10mV V1 Minimal ST elevation, anterior leads...ST >0.10mV, V1-V4
--- NOTE | 2022-08-03 16:38 | PDOC.CMIN ---
- If Service Date Differs Date of service: 08/03/22 Time of Service: 16:38 Care Management Initial Assess REASON FOR HOSPITALIZATION:: Fever PAST MEDICAL HISTORY/PAST SURGICAL HISTORY:: All Active Problems. Discharge planning issues (Acute). DVT prophylaxis (Acute). Anemia, mild (Acute). Renal insufficiency (Chronic). Fever (Acute). 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 Ambulatory dysfunction (Acute). E coli infection (Acute). Stroke (Chronic). Memory changes (Acute). Progressive dementia with uncertain etiology (Acute). Tinea corporis (Acute). Mobility impaired (Acute). Type 2 diabetes mellitus (Acute). Rash (Acute). Sepsis secondary to UTI (Acute). Hypercholesteremia (Chronic). CAD (coronary artery disease) (Chronic). S/P AVR (aortic valve replacement) (Chronic). 04/2013. H/O surgical procedure (Chronic). a. Aortic valve replacement 04/2013. b. left THR 10/04/2013. c. Left TKR 6-7 years ago. Hypertension (Chronic). Medical History. BPH (benign prostatic hyperplasia). CHF (congestive heart failure). Diabetes. Dizziness and giddiness. GERD (gastroesophageal reflux disease). HLD (hyperlipidemia). Hyperglycemia. Neuropathy. Obesity. Psoriasis. Urinary incontinence. Surgical History. H/O hernia repair. Hx of CABG. S/P appendectomy. S/P knee replacement PREVIOUS FUNCTIONAL STATUS/SOCIAL/FAMILY SUPPORTS:: Alvarez currently resides at [facility], where he receives his care. Alvarez stated that he has lived there for a long time, but could not remember how long. CURRENT FUNCTIONAL STATUS:: Alvarez was sitting up in his chair when CM met with him. He stated that he is feeling better today. ISAIAH explained that once he is medically cleared, his plan will be to return to [facility], but that may be delayed until Friday, as they often cannot accommodate admissions on the weekend. Per report, he is medically cleared. ISAIAH attempted to call and email staff at [facility]. CM will continue to follow. ADVANCE DIRECTIVES:: None on file, CM will offer forms prior to discharge. Has patient been provided with info about the portal/API?: Yes Did the patient sign up for the portal?: No CODE STATUS:: DNR/DNI INSURANCE COVERAGE / FINANCIAL ISSUES:: MCR/ [employer] supplement CURRENT HOME/COMMUNITY SERVICES/EQUIPMENT:: Alvarez currently receives care at [facility] PRIMARY CARE PHYSICIAN:: Facility provider POTENTIAL DISCHARGE NEEDS:: Coordinated return to [facility], follow up appointments. PATIENT/FAMILY EDUCATION NEEDS:: Review discharge instructions and limitations, discussion of self care needs including ask me three. ANTICIPATED BARRIERS TO DISCHARGE:: Facility cannot accommodate admissions on the weekend. TRANSPORTATION:: Via facility w/c van vs RCT PLAN:: Anticipate Alvarez will return to [facility] when medically cleared. He will transport via facility w/c van, coordinated by CM. He will follow up with facility providers and his discharge plan of care. CM will continue to follow.
[2022-08-03] MEDS: Enoxaparin 40 MG/0.4 ML SYR SC (20:12)
[2022-08-03] MEDS: Atorvastatin 40 MG TAB PO (20:12)
[2022-08-03] MEDS: Insulin Glargine 300 UNITS/3 ML PEN 20 UNITS SC (20:13)
--- NOTE | 2022-08-03 21:12 | NUR.NOTE ---
Nursing Note:Occult blood stool obtained and tested. Results show negative.
[2022-08-04] VITALS: PULSE 73
[2022-08-04 06:30] LABS: Abs Immature Grans 0.02 10^3/uL (0.0-0.06); Absolute Basophil Count 0.01 10^3/uL (0.0-0.2); Absolute Eosinophil Count 0.24 10^3/uL (0.0-0.7); Absolute Neutrophil Count 2.61 10^3/uL (1.2-6.7); Basophils % 0.2; Eosinophils % 5.7; HCT 33.2 % (40.0-50.0); HGB 11.8 g/dL (13.5-17.5); Immature Grans % 0.5; Lymphocytes % 28.7; MCH 33.7 pg (27.0-33.0); MCHC 35.5 % (32.0-36.0); MCV 95 fL (80-95); MPV 11.1 fL (8.0-11.0); Monocytes % 2.4; Neutrophils % 62.5; Platelet Count 149 10^3/uL (130-400); RDW 13.2 % (11.8-14.1); RDW-SD 45.2 fL; WBC 4.18 10^3/uL (4.4-10.8)
[2022-08-04 07:11] VITALS: PULSE 62
[2022-08-04 07:16] LABS: Anion Gap 9.4 mmol/L (3-11); BUN 12 mg/dL (7-18); CO2 25.6 mmol/L (21.0-32.0); CREATININE 1.1 mg/dL (0.70-1.30); Calcium 8.7 mg/dL (8.5-10.1); Chloride 106 mmol/L (98-107); Estimated GFR 68.29 (mL/min/1.73m2); Glucose 178 mg/dL (74-106); Magnesium 1.8 mg/dL (1.8-2.4); Sodium 141 mmol/L (136-145)
[2022-08-04] MEDS: Aspirin E.C. 81 MG TABEC PO (07:47)
[2022-08-04] MEDS: Insulin Aspart 300 UNITS/3 ML PEN SC ×2 (07:47→12:32)
[2022-08-04] MEDS: Multivitamin TAB 1 TAB PO (07:48)
[2022-08-04] MEDS: Magnesium Oxide 400 MG TAB PO (07:48)
[2022-08-04 07:49] VITALS: BP 171/91; PULSE 72; RESP 18; TEMP 36.8; O2SAT 99
[2022-08-04 07:55] LABS: Lab Add On Test DONE
[2022-08-04 08:06] LABS: C-Reactive Protein 1.09 mg/dL (0.0-0.3)
[2022-08-04 08:32] LABS: Procalcitonin < 0.1 ng/mL
--- NOTE | 2022-08-04 10:36 | W.PM.DS.N ---
Date of service: 08/04/22 Time of Service: 10:36 DS: Diagnosis Discharge Diagnosis (1) Fever: Status: Resolved (2) CAD (coronary artery disease): Status: Chronic (3) Type 2 diabetes mellitus: Status: Chronic (4) Progressive dementia with uncertain etiology: Status: Chronic (5) Renal insufficiency: Status: Chronic (6) Anemia, mild: Status: Chronic Discharge Plan Disposition Patient Disposition: [facility]) Condition: Improving Condition: Fair Discharge Details Reason For Visit: Fever Admit Date/Time: 08/02/22 20:17 Admit Provider: Tab Becker Attending Provider: Tab Becker Primary Care Provider: Unknown,Unknown Hospital Course Hospital Course: This is a 77 yo M patient that is a resident of the [facility] with a past medical history of dementia, CAD, s/p bioprosthetic AVR, cerebrovascular disease, and type 2 diabetes.? He was brought to the emergency room 08/02/2022 after he had a fall and increased confusion while visiting a family camp in [place].? He stated he remembered feeling quite hot.? He didn?t remember exactly what happened but stated he passed out, and no syncope reported by family.? When EMS arrived they took a tympanic temperature of 103f.? He was brought to the emergency room with a diagnosis of heat stroke.? We don't have record of cold immersion or other therapy given in the field.?In the emergency room his Tmax was 100.4. He was denying any complaints in the emergency room, and felt back to himself.?He denied feeling fevers/chills/malaise, no dysuria, but is urinating frequently.? No cold symptoms or cough or SOB.? No rashes or pains that are bothering him.? No headache. No leukocytosis, Hemoglobin and hematocrit show mild anemia, procalcitonin negative, electrolytes normal, except magnesium slightly decreased and glucose increased. He was placed on observation status on the medical floor. ?His vital signs and lab values remained stable.? He is eating and drinking without concerns, voiding adequately and has had normal, heme negative stools. ?His Magnesium was repleted and he was started on oral magnesium. Hemoglobin and hematocrit stable.? His blood pressure has been elevated, mostly 140s/70?s, up from previous visits of 120?s/60?s, recommend trending and treating accordingly.? He has been afebrile > 48h and no tachycardia.? He is returning to the [facility], stable. Discussed with Dr. Yee Home Meds and New Rx's Prescriptions: New magnesium oxide 400 mg (241.3 mg magnesium) Tablet 400 mg PO BID Qty: 0 0RF Continued multivitamin Tablet 1 tab PO DAILY bisacodyl 10 mg suppository 10 mg WV DAILY PRN Fleet Enema Extra 19-7 gram/197 mL enema 118 ml WV ONCE PRN glucagon 1 mg kit See Rx Instructions IM .COMPLEX Rx Instructions: intramuscularly; dextrose [Glucose Gel] 40 % gel 15 g PO Q15M PRN Rx Instructions: until symptoms of low blood sugar are controlled magnesium hydroxide 400 mg/5 mL suspension 30 ml PO DAILY PRN atorvastatin 40 mg tablet 40 mg PO QHS clotrimazole 1 % cream 1 applic topical BID PRN aspirin 81 mg tablet,delayed release (DR/EC) 81 mg PO DAILY acetaminophen [Acetaminophen Extra Strength] 500 MG tablet 500 mg PO TID PRN Discharge Instructions Activity:: Activity as Tolerated Equipment/Supplies:: Walker Diet:: Carb Counting Discharge Orders Discharge Orders: Discharge Order (Routine); Ordered 08/04/22 Ordered By: Korin Calloway DS: Summary Time Spent with Patient providing and/or coordinating discharge services: Less than 30 minutes Status at Discharge Functional status at discharge: uses cane/walker Overall status at discharge: patient is back to baseline Mental Status: mental status grossly normal (baseline) Speech and Movement: speech and movement normal Mood: congruent mood Affect: normal affect Exam Narrative Exam Narrative: GEN: Alert and oriented to place, self. He did recall the month and year. Pleasant and cooperative, but clear memory deficit. No acute distress at rest. HEENT: Head atraumatic. Conjunctiva clear, no icterus. PERRL, EOMI. no rhinorrhea. MMM, Neck is supple with no masses or lymphadenopathy, trachea midline LUNGS: CTAB with normal effort CV: RRR with 1/6 systolic murmur. no gallops, or rubs. ABD: +BS, softly distended, 7 cm umbilical hernia. No tenderness EXT: no cyanosis, clubbing. Trace schwarz edema bilaterally MSK: No joint redness or swelling NEURO: CN 2-12 grossly intact. Normal movement of 4 extremities. Normal speech and coordination. course tremor with using hands SKIN: No rashes or open wounds, some splotchy red patches where skin irritated. PSYCH: normal mood and affect Psych Mental Status: mental status grossly normal (baseline) Speech and Movement: speech and movement normal Mood: congruent mood Affect: normal affect DS: Data Vitals/I&O Vitals and I&O: Vital Signs Temperature 36.8 C 08/04/22 07:49 Temperature Source Tympanic 08/04/22 07:49 Pulse 72 08/04/22 07:49 Pulse Rhythm Regular 08/04/22 07:15 Respiratory Rate 18 08/04/22 07:49 Respiratory Effort Normal, Non-Labored 08/04/22 07:15 Respiratory Depth Normal 08/04/22 07:15 Respiratory Pattern Normal 08/04/22 07:15 Blood Pressure 171/91 H 08/04/22 07:49 Blood Pressure Position Supine 08/02/22 17:58 Pulse Oximetry 99 08/04/22 07:49 Oxygen Delivery Method Room Air 08/04/22 07:49 Oxygen Flow Rate 0 08/04/22 07:49 Pain Level 0 08/02/22 22:03 Comment BP called over radio 08/04/22 07:49 Intake & Output 08/03/22 08/03/22 08/04/22 11:59 23:59 11:59 Intake Total 240 / 840 600 / 840 Balance 240 / 840 600 / 840 Weight 88.3 kg 88.6 kg Intake: Oral 240 / 840 600 / 840 Other: Urine Color Yellow Yellow Yellow Urine Appearance Clear Cloudy Urine Odor Normal Normal Normal Comment pT dry at this time; brief changed during am care diaper change moderate-heavy incontinence in brief Stool Occult Blood Negative Stool Size Small Smear Stool Characteristics Soft Soft Formed Brown Brown Voiding Methods Diaper Diaper Diaper Incontinent Incontinent Data Completed and Pending Labs on day of discharge: Labs from last 24 hours 08/04/22 08/04/22 08/04/22 05:40 05:40 05:40 WBC RBC Hgb Hct MCV MCH MCHC RDW Plt Count MPV Immature Gran % Neutrophils % Lymphocytes % Monocytes % Eosinophils % Basophils % Nucleated RBC % Absolute Neutrophils Absolute Lymphocytes Absolute Monocytes Absolute Eosinophils Absolute Basophils Sodium Potassium Chloride Carbon Dioxide Anion Gap BUN Creatinine Est GFR (CKD-EPI 2020) Glucose Calcium Magnesium C-Reactive Protein 1.09 H Procalcitonin < 0.1 Add-On Test Request DONE 08/04/22 08/04/22 05:40 05:40 WBC 4.18 L RBC 3.50 L Hgb 11.8 L Hct 33.2 L MCV 95 MCH 33.7 H MCHC 35.5 RDW 13.2 Plt Count 149 MPV 11.1 H Immature Gran % 0.5 Neutrophils % 62.5 Lymphocytes % 28.7 Monocytes % 2.4 Eosinophils % 5.7 Basophils % 0.2 Nucleated RBC % 0.0 Absolute Neutrophils 2.61 Absolute Lymphocytes 1.20 Absolute Monocytes 0.10 Absolute Eosinophils 0.24 Absolute Basophils 0.01 Sodium 141 Potassium 4.0 Chloride 106 Carbon Dioxide 25.6 Anion Gap 9.4 BUN 12 Creatinine 1.1 Est GFR (CKD-EPI 2020) 68.29 Glucose 178 H Calcium 8.7 Magnesium 1.8 C-Reactive Protein Procalcitonin Add-On Test Request Preliminary micro results at discharge 08/02/22 20:15 Blood Culture - Preliminary Blood NO GROWTH 24 HOURS 08/02/22 18:59 Blood Culture - Preliminary Blood NO GROWTH 24 HOURS PFSH All Active Problems (Updated 08/04/22 @ 10:37 by Korin Calloway NP) Discharge planning issues (Acute) DVT prophylaxis (Acute) Anemia, mild (Chronic) Renal insufficiency (Chronic) 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 Aortic valve replacement 04/2013 b. left THR 10/04/2013 c. Left TKR 6-7 years ago Hypertension (Chronic) Medical History BPH (benign prostatic hyperplasia) CHF (congestive heart failure) Diabetes Dizziness and giddiness GERD (gastroesophageal reflux disease) HLD (hyperlipidemia) Hyperglycemia Neuropathy Obesity Psoriasis Urinary incontinence Surgical History H/O hernia repair Hx of CABG S/P appendectomy S/P knee replacement Social History (Updated 08/02/22 @ 22:58 by Tab Becker) Smoking/Tobacco Use Status: Former Tobacco Use Smoking risk assessment performed?: Yes Drug use: Never Substance use type: does not use Do you feel safe at home: Yes Do you feel safe in your relationship?: Yes Additional Social history: [facility] resident [facility] Time Spent with Patient Time Spent with Patient: <45 minutes Time was spent: preparing to see the patient(eg.review tests), ordering medications,tests, procedures, referring, communicating with other health career transition specialist, indepentently interpreting results, counseling the patient and care coordination
[2022-08-04 11:38] VITALS: BP 151/77; PULSE 55; RESP 18; TEMP 36.4; O2SAT 98
--- NOTE | 2022-08-04 12:58 | NUR.NOTE ---
Nursing Note:Nurse to nurse completed with pb
[2022-08-04 13:29] VITALS: PULSE 56
== END 2022-08-04 13:22 | disposition skilled nursing facility (03) ==
LOC: ER 20:25 → MS 21:51
PROVIDERS: Internal Medicine; Nurse Practitioner Family; Admitting Provider Family Medicine; Emergency Provider Emergency Medicine; Visit Provider Family Medicine
DX: T67.01XA Heatstroke and sunstroke, initial encounter (principal); R50.9 Fever, unspecified; R41.0 Disorientation, unspecified; F03.90 Unspecified dementia, unspecified severity, without behavioral disturbance, psychotic disturbance, mood disturbance, and anxiety; I25.10 Atherosclerotic heart disease of native coronary artery without angina pectoris; E11.65 Type 2 diabetes mellitus with hyperglycemia; N18.9 Chronic kidney disease, unspecified; D64.9 Anemia, unspecified; X30.XXXA Exposure to excessive natural heat, initial encounter; Z66 Do not resuscitate; Z95.3 Presence of xenogenic heart valve; Z22.322 Carrier or suspected carrier of Methicillin resistant Staphylococcus aureus; Z86.73 Personal history of transient ischemic attack (TIA), and cerebral infarction without residual deficits; I49.5 Sick sinus syndrome; E78.00 Pure hypercholesterolemia, unspecified; I50.9 Heart failure, unspecified; N40.0 Benign prostatic hyperplasia without lower urinary tract symptoms; K21.9 Gastro-esophageal reflux disease without esophagitis; E11.40 Type 2 diabetes mellitus with diabetic neuropathy, unspecified; Z95.1 Presence of aortocoronary bypass graft; Z96.653 Presence of artificial knee joint, bilateral; I67.9 Cerebrovascular disease, unspecified; W19.XXXA Unspecified fall, initial encounter; E83.42 Hypomagnesemia; E87.20 Acidosis, unspecified
CPT/HCPCS: 36415; 36416; 80048; 80053; 82550; 82962; 84145; 87040; 87081; 87635; 93005; 96360; 96361; 96372; 99285; J1650; 70450; 71046; 81003; 83036; 83605; 83735; 84484; 85025; 86140; 93010; 99232; 99238

== ENCOUNTER 2022-10-28 17:49 | Outpatient (REF) | payer MEDICARE, OTHER, SELFPAY ==
[2022-10-28 20:41] LABS: C Diff PCR Negative (Negative)
== END 2022-10-28 17:50 | disposition home or self-care (01) ==
LOC: LBN 17:49
PROVIDERS: Visit Provider Physician Assistant
DX: R19.7 Diarrhea, unspecified (principal)
CPT/HCPCS: 87493

== ENCOUNTER 2022-11-17 17:25 | Observation (INO) | payer MEDICARE, OTHER, SELFPAY ==
[2022-11-17] VITALS (23 sets, daily range): BP systolic 127–167; BP diastolic 61–69; PULSE 68–83; RESP 17–26; TEMP 37.4; O2SAT 96–97
--- NOTE | 2022-11-17 17:30 | DI.RAD_ITS ---
Exam(s) XR CHEST 2V PA LATERAL EXAM: XR CHEST 2V PA LATERAL CLINICAL HISTORY: ams. TECHNIQUE: 2D digital imaging was performed. COMPARISON: CR,XR XR CHEST 2V PA LATERAL from 08/02/2022 FINDINGS: 2 views: Sternotomy wires again noted. Prosthetic aortic valve again noted. Heart size is upper normal. The mediastinum is not widened. Lungs are clear. No infiltrates nor pleural effusions. No pulmonary edema. IMPRESSION: No acute pulmonary findings. Sternotomy wires prosthetic aortic valve again noted. DATA REPOSITORY: RADIATION DOSE DELIVERED:
--- NOTE | 2022-11-17 17:30 | DI.CT_ITS ---
Exam(s) CT BRAIN NECK CTA EXAM: CT BRAIN NECK CTA CLINICAL HISTORY: left sided weakness, ams. TECHNIQUE: Imaging Protocol: Axial CT angiography was performed with multi-slice acquisition and mu lti-planar and/or 3D reconstructions. CONTRAST MATERIAL: Intravenous: Omnipaque 350 Contrast volume:85 mL COMPARISON: Prior brain MRI August 2021 reviewed FINDINGS: CTA Neck W: Aortic arch anatomy: The aortic arch anatomy is conventional and there is no significant stenosis at the origin of the great vessels off of the aortic arch. No intimal flap evident. Anterior circulation: Both common carotid arteries ascend with normal luminal diameters. On the right side there is circumferential plaque in the distal common carotid artery and bulb. Mora philippe, there is no tight stenosis at this level nor proximal internal carotid artery. No dissection. On the left side there is both calcified and noncalcified plaque at the carotid bulb and proximal lef t ICA with estimated stenosis approximately 40 percent. Above this level the left ICA in the neck is patent. Posterior circulation: Both vertebral arteries originated conventional fashion off the subclavian arteries. The right verte bral artery is dominant and ascends with normal luminal diameter in the foramen transverse area and i s the main contributor to the basilar artery formation at the skull base. The left vertebral artery is thin vessel throughout its course and at the skull base is not opacified . CTA Brain W: Anterior circulation: Both internal carotid arteries are patent in the skull base-carotid canals. The left ICA is patent i n the cavernous sinus without significant stenosis. There is some plaque in the wall of the right IC A within the cavernous sinus mild stenosis. Left middle cerebral artery is patent. There is stenosis of proximal M2 branch. Also stenosis of small distal M2/proximal M3. Right A1 segment is hypoplastic. Left A1 segment is patent and supplies both anterior cerebral arter ies via the anterior communicating artery. There is no aneurysm at the level of the anterior communi cating artery. Posterior circulation: The skull base the basilar artery is formed by the calcified right vertebral artery. Basilar artery ascends with normal luminal diameter. Distally gives off superior cerebellar arteries and above this level terminates as patent bilateral posterior cerebral arteries. There is no evidence of aneurysm at the tip of the basilar artery nor elsewhere in the ometew-ew-Xdit is. CT BRAIN: There is no evidence of intracranial hemorrhage, mass effect, or shift of midline structures. There are no extra-axial fluid collections. There is abundant bilateral periventricular white matter hypod ensity consistent with chronic small vessel disease and there is also a nonhemorrhagic small lacunar infarct in the left immediate periventricular white matter. There is also an area of encephalomalaci a in the left frontal lobe. No ring enhancing lesions in the brain. No abnormal meningeal enhanceme nt. Tiny lacunar infarcts in the left cerebellar hemisphere noted IMPRESSION: 1. Some plaque evident in the carotid arteries in the neck bilaterally but without stenosis greater t lu 40 percent. 2. Dominant right vertebral artery with some calcified plaque in this vessel at the skull base. Thi n non dominant left vertebral artery does not contribute to the formation of the basilar artery at th e skull base. 3. Stenosis right M2 branch with suspected small distal branch to no cysts and occlusions. 4. Follow-up MRI with diffusion imaging recommended. First read by [facility]. RADIATION DOSE DELIVERED: 2,143mGy.cm Total DLP DATA REPOSITORY: All CT scans at this facility are submitted to the National Radiology Data Registry (NRDR) Dose Index Registry (DIR) with the [employer] (A[employer]). RADIATION OPTIMIZATION: All CT scans at this facility use at least one of these dose optimization te chniques: automated exposure control; mA and/or kV adjustment per patient size (includes targeted exa ms where dose is matched to clinical indication); or iterative reconstruction.
--- NOTE | 2022-11-17 17:30 | RT.EKG_ITS ---
APPROVED REPORT Exam: Resting ECG Reason for Exam: [facility] Patient Location: E HR:73 bpm ECG Measurements Heart Rate 73 AXIS WY 175 P 79 QRSd 85 QRS 72 QT 374 T 42 QTc 413 Conclusion Sinus rhythm...normal P axis, V-rate 60- 99 sinus rhythm, normal axis, normal intervals, non ischemic
--- NOTE | 2022-11-17 17:30 | DI.RAD_ITS ---
Exam(s) XR TIB/FIB LT EXAM: XR TIB/FIB LT CLINICAL HISTORY: fall left leg pain. TECHNIQUE: 2D digital imaging was performed. COMPARISON: No exams were available for comparison FINDINGS: 3 views Left knee prosthesis which appears. No fracture or loosening evident. No fractures lower down the t ibia and fibula. Vascular calcification noted. No radiographic evidence of osteomyelitis. No radio paque foreign body. IMPRESSION: No acute osseous findings. DATA REPOSITORY: RADIATION DOSE DELIVERED:
--- NOTE | 2022-11-17 17:36 | W.ED.GENAD ---
Discharge Plan Disposition Patient Disposition: Admit to [facility] Condition: Stable Discharge Details Chief Complaint: CVA/TIA Clinical Impression: Brain TIA, Middle cerebral artery stenosis Primary Care Provider: Sony Simmons ED Provider: Danny Silva Home Meds and New Rx's Prescriptions: No Action multivitamin Tablet 1 tab PO DAILY bisacodyl 10 mg suppository 10 mg WY DAILY PRN Fleet Enema Extra 19-7 gram/197 mL enema 118 ml WY ONCE PRN glucagon 1 mg kit See Rx Instructions IM .COMPLEX Rx Instructions: intramuscularly; dextrose [Glucose Gel] 40 % gel 15 g PO Q15M PRN Rx Instructions: until symptoms of low blood sugar are controlled magnesium hydroxide 400 mg/5 mL suspension 30 ml PO DAILY PRN atorvastatin 40 mg tablet 40 mg PO QHS clotrimazole 1 % cream 1 applic topical BID PRN aspirin 81 mg tablet,delayed release (DR/EC) 81 mg PO DAILY acetaminophen [Acetaminophen Extra Strength] 500 MG tablet 500 mg PO TID PRN magnesium oxide 400 mg (241.3 mg magnesium) Tablet 400 mg PO BID Qty: 0 0RF Medical Decision Making 77-year-old male presents after possible fall versus syncope, possible seizure activity, may have also sustained head injury, noted to have left-sided weakness and confusion, patient alert to self and place not to time, noticeable left-sided weakness compared to right with left-sided pronator drift, patient rotated to his right however must consider foreshortened and rotated left lower extremity, consider intracerebral hemorrhage versus ischemic CVA versus seizure versus pelvic fracture versus proximal femur fracture versus dehydration versus electrolyte abnormality versus infectious process such as viral syndrome versus pneumonia versus UTI. Screening labs imaging disposition pending reassess 19: 15 patient resting comfortably improved with neurologic assessment, patient is 5 out of 5 strength bilateral upper extremities 4+ out of 5 strength bilateral lower extremities, no longer has a left pronator drift, is more attentive, initial NIH approximately 5 current NIH 0-1 19: 43 discussed case with [facility] stroke/vascular neurology team, no intervention at this time, consider likely TIA, will load with dual antiplatelet, Plavix 300 and aspirin 325. Plan will be to admit here for MRI and neuro follow-up. HPI General Date/Time Provider Initiated Documentation: 11/17/22 17:31. HPI Narrative: 77-year-old male history of diabetes hypertension, coronary disease presents brought in by EMS after a fall versus syncope at assisted living, unclear whether patient lost consciousness, possible seizure activity afterwards, noted confusion and possible left-sided weakness. Fingerstick 200 in the field. Related Data Home Medications Medication Instructions Recorded Confirmed acetaminophen 500 mg tablet 500 mg PO TID PRN 02/27/14 08/02/22 (Acetaminophen Extra Strength) aspirin 81 mg tablet,delayed 81 mg PO DAILY 11/07/21 08/02/22 release atorvastatin 40 mg tablet 40 mg PO QHS 11/07/21 08/02/22 bisacodyl 10 mg rectal suppository 10 mg WY DAILY PRN 11/07/21 08/02/22 clotrimazole 1 % topical cream 1 applic topical BID PRN 11/07/21 08/02/22 dextrose 40 % oral gel (Glucose 15 g PO Q15M PRN 11/07/21 08/02/22 Gel) glucagon 1 mg injection kit See Rx Instructions IM .COMPLEX 11/07/21 08/02/22 magnesium hydroxide 400 mg/5 mL 30 ml PO DAILY PRN 11/07/21 08/02/22 oral suspension multivitamin 1 tab PO DAILY 11/07/21 08/02/22 sodium phosphates 19 gram-7 118 ml WY ONCE PRN 11/07/21 08/02/22 gram/197 mL enema (Fleet Enema Extra) magnesium oxide 400 mg (241.3 mg 400 mg PO BID #0 tabs 08/04/22 magnesium) tablet Previous Rx's Medication Instructions Recorded magnesium oxide 400 mg (241.3 mg 400 mg PO BID #0 tabs 08/04/22 magnesium) tablet Allergies Allergy/AdvReac Type Severity Reaction Status Date / Time No Known Allergies Allergy Verified 12/04/21 13:39 General Stated Complaint: CVA/TIA CLEMENTINA: 2 Review of Systems Narrative: Review of Systems Constitutional: negative Eyes: negative ENT: negative Cardiovascular: negative Respiratory: negative Gastrointestinal: negative : negative Musculoskeletal: negative Skin: negative Neurologic: Head injury versus syncope, weakness Psych: negative PFSH All Active Problems (Updated 11/17/22 @ 19:45 by Danny Silva MD) Brain TIA (Acute) Middle cerebral artery stenosis (Acute) Anemia, mild (Chronic) 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 Aortic valve replacement 04/2013 b. left THR 10/04/2013 c. Left TKR 6-7 years ago Hypertension (Chronic) Medical History BPH (benign prostatic hyperplasia) CHF (congestive heart failure) Diabetes Dizziness and giddiness GERD (gastroesophageal reflux disease) HLD (hyperlipidemia) Hyperglycemia Neuropathy Obesity Psoriasis Urinary incontinence Surgical History H/O hernia repair Hx of CABG S/P appendectomy S/P knee replacement Social History Smoking/Tobacco Use Status: Former Tobacco Use Smoking risk assessment performed?: Yes Drug use: Never Substance use type: does not use Do you feel safe at home: Yes Do you feel safe in your relationship?: Yes Additional Social history: Current resident of [facility] Exam Narrative Exam Narrative: Physical Examination General: alert, awake, cooperative, resting comfortably, no acute distress HEENT: normocephalic, atraumatic; PERRL, EOM intact, conjunctiva normal; no nasal discharge; moist mucous membranes, oral and pharyngeal mucosa normal, tolerating secretions Neck: supple, trachea midline; full ROM Chest: normal to inspection Respiratory: normal respiratory effort, speaking in full sentences, clear to auscultation, no wheezing, rales or rhonchi Cardiac: regular rate, regular rhythm, S1S2 intact, no murmurs rubs or gallops GI: abdomen soft, non-tender, non-distended; no palpable mass or hepatosplenomegaly Skin: no lesions, rashes or trauma appreciated Neuro: Alert to self and place, not alert to time as patient answers 2001 to the , 5-5 strength upper right extremity, 4+ out of 5 strength right lower extremity, 3 out of 5 strength left lower extremity, 4+ out of 5 strength left upper extremity, left upper extremity pronator drift Course Vital Signs Vital signs: Vital Signs Pulse 77 11/17/22 17:27 Respiratory Rate 18 11/17/22 17:27 Blood Pressure 127/67 11/17/22 17:27 Pulse Oximetry 97 11/17/22 17:27 Pulse 77 11/17/22 17:27 Respiratory Rate 18 11/17/22 17:32 Respiratory Effort Normal, Non-Labored 11/17/22 17:32 Respiratory Depth Normal 11/17/22 17:32 Respiratory Pattern Normal 11/17/22 17:32 Blood Pressure 127/67 11/17/22 17:27 Pulse Oximetry 97 11/17/22 17:27
[2022-11-17 17:40] LABS: Abs Immature Grans 0.03 10^3/uL (0.0-0.06); Absolute Basophil Count 0.02 10^3/uL (0.0-0.2); Absolute Eosinophil Count 0.09 10^3/uL (0.0-0.7); Absolute Lymphocyte Count 0.96 10^3/uL (1.2-3.4); Absolute Monocyte Count 0.15 10^3/uL (0.1-0.8); Absolute Neutrophil Count 4.95 10^3/uL (1.2-6.7); Basophils % 0.3; Eosinophils % 1.5; HCT 35.4 % (40.0-50.0); HGB 12.4 g/dL (13.5-17.5); Immature Grans % 0.5; Lymphocytes % 15.5; MCH 34.2 pg (27.0-33.0); MCV 98 fL (80-95); MPV 10.7 fL (8.0-11.0); Monocytes % 2.4; Neutrophils % 79.8; Platelet Count 159 10^3/uL (130-400); RBC 3.63 10^6/uL (4.36-5.78); RDW 13.4 % (11.8-14.1); RDW-SD 48.1 fL
[2022-11-17 17:55] LABS: PTT Activated 23.8 sec (21.5-31.9); Prothrombin Time 10.5 sec (9.3-11.0)
--- NOTE | 2022-11-17 18:00 | DI.RAD_ITS ---
Exam(s) XR PELVIS AP EXAM: XR PELVIS AP CLINICAL HISTORY: fall, left hip pain. TECHNIQUE: 2D digital imaging was performed. COMPARISON: No exams were available for comparison FINDINGS: Single AP view. There is a left hip prosthesis. Advanced degenerative changes noted in the opposite-right hip. No a cute fractures evident. This contrast in the urinary bladder is abnormal appearance, consisting of multiple diverticuli and b ladder wall trabeculation. IMPRESSION: As above. DATA REPOSITORY: RADIATION DOSE DELIVERED:
[2022-11-17 18:10] LABS: ALT 36 U/L (16-63); AST 18 U/L (15-37); Albumin 3.6 g/dL (3.4-5.0); Alkaline Phosphatase 95 U/L (46-116); Anion Gap 10.9 mmol/L (3-11); BUN 17 mg/dL (7-18); Bilirubin, Total 1.1 mg/dL (0.2-1.0); CO2 26.1 mmol/L (21.0-32.0); CREATININE 1.3 mg/dL (0.70-1.30); Calcium 8.8 mg/dL (8.5-10.1); Chloride 100 mmol/L (98-107); Creatine Kinase 51 U/L (39-308); Estimated GFR 55.88 (mL/min/1.73m2); Glucose 198 mg/dL (74-106); Potassium 4.1 mmol/L (3.5-5.1); Sodium 137 mmol/L (136-145); TSH (W/Ref FT4) 2.56 uIU/mL (0.36-3.74); Total Protein 7.6 g/dL (6.4-8.2); Troponin I < 50 ng/L (<or=60)
[2022-11-17 18:20] LABS: ETHANOL BLOOD < 3.0 mg/dL (<10)
[2022-11-17] MEDS: Omnipaque 350 MG/ML 100 ML BTL IJ (18:20)
[2022-11-17] MEDS: Normal Saline - Diluent 50 ML VIAL IJ (18:20)
[2022-11-17] MEDS: Normal Saline Flush 10 ML SYR IVP ×2 (18:21→22:24)
--- NOTE | 2022-11-17 18:40 | DI.RAD_ITS ---
Exam(s) XR FEMUR LT EXAM: XR FEMUR LT CLINICAL HISTORY: fal, left leg pain. TECHNIQUE: 2D digital imaging was performed. COMPARISON: CR,XR XR TIB/FIB LT from 11/17/2022 FINDINGS: Four views. Left hip prosthesis appears intact with no fracture or loosening evident. Left knee prosthesis appea rs intact. No fractures evident. No osseous lesions. Contrast in the urinary bladder reveals multiple diverticuli. IMPRESSION: Left hip and knee prostheses. No fracture or loosening evident. No acute osseous findings in the left femur. DATA REPOSITORY: RADIATION DOSE DELIVERED:
--- NOTE | 2022-11-17 18:57 | DI.VRAD_ITS ---
PROCEDURE INFORMATION: Exam: CTA Head With Contrast, Arteriography Exam date and time: 11/17/2022 5:52 PM Age: 77 years old Clinical indication: Stroke-like symptoms; Other: Left sided weakness, AMS TECHNIQUE: Imaging protocol: Computed tomographic angiography of the head with contrast. Exam focused on the arteries. 3D rendering (Not supervised by radiologist): MIP and/or 3D reconstructed images were created by the technologist. Total images: [id number] Radiation optimization: All CT scans at this facility use at least one of these dose optimization techniques: automated exposure control; mA and/or kV adjustment per patient size (includes targeted exams where dose is matched to clinical indication); or iterative reconstruction. Contrast material: OMNI 350; Contrast volume: 85 ml; Contrast route: INTRAVENOUS (IV); COMPARISON: MR ANGIO BRAIN WO 09/11/2021 11:37 AM FINDINGS: ANTERIOR CIRCULATION: Right internal carotid artery: Mild stenosis cavernous and supraclinoid right ICA. Right middle cerebral artery: No M1 significant stenosis. Moderate stenosis of a proximal M2 branch with equivocal small distal M2/proximal 3 occlusions. Right anterior cerebral artery: Hypoplastic right A1 segment. Left internal carotid artery: Moderate stenosis left supraclinoid segment. Left middle cerebral artery: No significant stenosis or occlusion. Left anterior cerebral artery: Left A1 segment supplies bilateral interhemispheric cerebral arteries. No stenosis. POSTERIOR CIRCULATION: Right vertebral artery: Significant stenosis right V4 segment. Left vertebral artery: Hypoplastic left V4 segment. Basilar artery: No occlusion or significant stenosis. No aneurysm. Right posterior cerebral artery: No occlusion or significant stenosis. No aneurysm. Left posterior cerebral artery: No occlusion or significant stenosis. No aneurysm. Veins: No dural venous sinus thrombosis. Brain: Small amount hyperdense artifact within the anterior aspect of the frontal lobes. Mild atrophy. Moderate white matter disease. Old lacunar infarct in the left caudate body. Old lacunar infarct left cerebellar hemisphere. Regions of encephalomalacia in the left frontal and parietal lobes. No abnormal intracerebral enhancement. No mass effect. Cerebral ventricles: Mild hydrocephalus ex vacuo. Auditory system: Cerumen external auditory canals, right greater than left. Bones/joints: Unremarkable. No acute fracture. Soft tissues: Unremarkable. No dense vessel. IMPRESSION: 1. Stenosis right M2 branch with suspected small distal branch occlusions. 2. THIS REPORT CONTAINS FINDINGS THAT MAY BE CRITICAL TO PATIENT CARE. The findings were verbally communicated via telephone conference with Danny Silva at 6:52 PM EDT on 11/17/2022. The findings were acknowledged and understood. 3. He confirmed patient was having left-sided symptoms. Follow-up brain MRI was suggested. PROCEDURE INFORMATION: Exam: CTA Neck With Contrast Exam date and time: 11/17/2022 5:52 PM Age: 77 years old Clinical indication: Stroke-like symptoms; Other: Left sided weakness, AMS TECHNIQUE: Imaging protocol: Computed tomographic angiography of the neck with contrast. 3D rendering (Not supervised by radiologist): MIP and/or 3D reconstructed images were created by the technologist. Radiation optimization: All CT scans at this facility use at least one of these dose optimization techniques: automated exposure control; mA and/or kV adjustment per patient size (includes targeted exams where dose is matched to clinical indication); or iterative reconstruction. Contrast material: OMNI 350; Contrast volume: 85 ml; Contrast route: INTRAVENOUS (IV); COMPARISON: MR ANGIO NECK WO 09/11/2021 11:19 AM FINDINGS: Right common carotid artery: Mild stenosis right carotid bulb. Right internal carotid artery: Mild stenosis proximal right ICA. Right external carotid artery: No occlusion or stenosis of the origin. Left common carotid artery: Mild stenosis left carotid bulb. Small plaque without luminal narrowing mid left CCA. Left internal carotid artery: Calcified plaques mildly narrow the proximal left ICA. Left external carotid artery: No occlusion or stenosis of the origin. Right vertebral artery: Mild stenoses involving the right V1 and V2 segments. Mild stenosis right V3 segment. Left vertebral artery: Non dominant left vertebral artery. No occlusion. Soft tissues: No significant soft tissue swelling. Bones/joints: Significant disc space narrowing associated with endplate spondylosis at the C3-C4 through C6-C7 levels with secondary central and foraminal stenosis. IMPRESSION: 1. Mild bilateral carotid stenosis. 2. Mild stenoses right vertebral artery. REFERENCES: NASCET CRITERIA. The degree of stenosis in the cervical segment of the internal carotid artery is based on NASCET criteria. Normal is no stenosis. Mild is less than 50% stenosis. Moderate is 50-69% stenosis. Severe is 70% to 99% stenosis. Total occlusion is no detectable patent lumen. Dictated and Authenticated by: Rubin Bates MD. Ordering:TARYN Delgado MD
[2022-11-17] MEDS: Normal Saline 500 ML 1000 ML IV (19:16)
--- NOTE | 2022-11-17 19:20 | DI.VRAD_ITS ---
PROCEDURE INFORMATION: Exam: XR Pelvis Exam date and time: 11/17/2022 6:40 PM Age: 77 years old Clinical indication: Other: Fall, left leg pain; Prior surgery; Surgery date: 6+ months; Surgery type: Total hip replacement TECHNIQUE: Imaging protocol: Radiologic exam of the pelvis. Views: 1 or 2 view. Total images: 1 COMPARISON: CT ABDOMEN PELVIS WO 09/07/2021 7:23 PM FINDINGS: Tubes, catheters and devices: Prosthetic components appear well-positioned. Bones/joints: No acute fracture. Severe osteoarthritis right hip. Total left hip replacement. Soft tissues: Unremarkable. Gastrointestinal tract: Intravenous contrast in a trabeculated/diverticula within bladder. IMPRESSION: No acute findings. Dictated and Authenticated by: Rubin Bates MD. Ordering:TARYN Delgado MD
--- NOTE | 2022-11-17 19:23 | DI.VRAD_ITS ---
PROCEDURE INFORMATION: Exam: XR Left Tibia and Fibula Exam date and time: 11/17/2022 6:30 PM Age: 77 years old Clinical indication: Other: Fall left leg pain; Prior surgery; Surgery date: 6+ months; Surgery type: Total knee surgery TECHNIQUE: Imaging protocol: Radiologic exam of the left tibia and fibula. Views: 2 views. Total images: 4 COMPARISON: No relevant prior studies available. FINDINGS: Tubes, catheters and devices: The prosthetic components appear well-positioned. Bones/joints: Total knee replacement with patellar backing. No fracture. No knee effusion. Soft tissues: Small surgical annamaria medial soft tissues of the knee. Subcutaneous edema. Vasculature: Vascular calcification. IMPRESSION: No acute findings. Dictated and Authenticated by: Rubin Bates MD. Ordering:TARYN Delgado MD
--- NOTE | 2022-11-17 19:25 | DI.VRAD_ITS ---
PROCEDURE INFORMATION: Exam: XR Left Femur Exam date and time: 11/17/2022 6:42 PM Age: 77 years old Clinical indication: Other: Fall, trauma; Prior surgery; Surgery date: 6+ months; Surgery type: Total hip, . total knee replacement TECHNIQUE: Imaging protocol: Radiologic exam of the left femur. Views: 2 views. Total images: 4 COMPARISON: CR XR PELVIS AP 11/17/2022 6:40 PM FINDINGS: Tubes, catheters and devices: The prosthetic components appear well-positioned. Bones/joints: Total hip and total knee replacements. No acute fracture. Soft tissues: Unremarkable. Organs: Intravenous contrast trabeculated/diverticular bladder. IMPRESSION: No acute findings. Dictated and Authenticated by: Rubin Bates MD. Ordering:TARYN Delgado MD
--- NOTE | 2022-11-17 19:28 | DI.VRAD_ITS ---
PROCEDURE INFORMATION: Exam: XR Chest Exam date and time: 11/17/2022 6:20 PM Age: 77 years old Clinical indication: Other: AMS TECHNIQUE: Imaging protocol: Radiologic exam of the chest. Views: 2 views. Total images: 2 COMPARISON: CR XR CHEST 2V PA LATERAL 08/02/2022 7:13 PM FINDINGS: Lungs: Lungs are clear without consolidation. Pulmonary ally: Unremarkable contours. Pleural spaces: No pleural effusion. No pneumothorax. Heart/Mediastinum: Stable mediastinal contours. Aortic valve replacement. Bones/joints: Median sternotomy. No fracture. Intraperitoneal space: Visualized upper abdomen is unremarkable. IMPRESSION: No acute findings. Dictated and Authenticated by: Rubin Bates MD. Ordering:TARYN Delgado MD
[2022-11-17] MEDS: Clopidogrel 300 MG TAB PO (19:44)
[2022-11-17] MEDS: Aspirin 325 MG TAB PO (19:44)
[2022-11-17 20:49] LABS: Bilirubin Negative (Negative); Blood Large (Negative); Clarity Cloudy (Clear); Glucose Negative (Negative); Ketones Trace mg/dL (Negative); Leukocyte Esterase Moderate (Negative); Nitrite Positive (Negative); Specific Gravity 1.015 (1.005-1.025); pH >= 9.0 (5-8)
[2022-11-17 20:59] LABS: Bacteria Many HPF (Negative); C & S Indicated? Yes; Casts 0-2 Hyaline LPF (Negative); Crystals Negative HPF (Negative); Epithelial Cells Few HPF (Negative); Mucus Moderate (Negative)
[2022-11-17 21:22] LABS: Troponin I < 50 ng/L (<or=60)
[2022-11-17] MEDS: Normal Saline 1,000 ML 75 ML IV (21:30)
[2022-11-17] MEDS: Pravastatin 20 MG TAB 80 MG PO (22:23)
[2022-11-18] VITALS (9 sets, daily range): BP systolic 127–145; BP diastolic 66–82; PULSE 69–87; RESP 16–18; TEMP 36.4–37.1; O2SAT 95–97
--- NOTE | 2022-11-18 | DI.MRI_ITS ---
Exam(s) MR BRAIN WO EXAM: MR BRAIN WO CLINICAL HISTORY: TIA TECHNIQUE: Multiplanar multisequence MRI of the brain was performed. COMPARISON: MR MR BRAIN WO from 09/11/2021 FINDINGS: CEREBRAL PARENCHYMA: There is no evidence of intracranial hemorrhage, mass effect, or shift of midline structures. There are no extra-axial fluid collections. The ventricular size is commensurate with the size of the over lying cortical sulci in this elderly patient. There are nonacute appearing lacunes in the left cerebellar hemisphere. Also some signal abnormality evident in the central joselyn and abundant signal abnormality in the periventricular white matter as w ell as surrounding area of encephalomalacia in left frontal lobe from prior infarct. Abundant confluent signal abnormality noted in the periventricular white matter bilaterally. I DWI there is a small focus restricted diffusion in the peripheral aspect of the left frontal lobe. PITUITARY GLAND: No mass nor parasellar abnormality. No obvious abnormality in the cavernous sinuses. FLOW VOIDS: The expected flow void are noted. No evidence of obvious aneurysm nor obvious vascular ma lformation. PARANASAL SINUSES: The visualized paranasal sinuses appear unremarkable. No obvious finding ORBITS: No obvious findings. IMPRESSION: In addition to chronic white matter findings there is a small focus of restricted diffusion in the pe ripheral aspect of the left frontal lobe, this probably consistent with acute infarct at this level. Chronic left frontal lobe infarct also evident. DATA REPOSITORY:
--- NOTE | 2022-11-18 06:17 | HPE_ITS ---
Date of service: 11/18/22 Time of Service: 06:17 Assessment and Plan Assessment and plan (1) Brain TIA: Status: Acute Assessment and plan: He had a brief episode of left-sided weakness probably related to his right- sided MCA occlusion. An MRI was recommended which is ordered. He was given Plavix 300 mg p.o. in the emergency room will continue Plavix 75 mg daily and aspirin [address] Valentine was consulted from neurology. (2) Stenosis of right middle cerebral artery: Status: Acute Assessment and plan: Per neurology this is not a lesion that they would go after. Dual a ntiplatelet therapy, statin therapy. (3) MRSA colonization: Status: Acute Assessment and plan: Chronically MRSA positive. Using proper precautions. (4) Type 2 diabetes mellitus: Status: Chronic Assessment and plan: On metformin. Diabetic diet was ordered. History of Present Illness History of Present Illness Chief Complaint: Transient ischemic attack Narrative: 77-year-old resident of [facility]. He was noted to have had a fall. It is unclear whether he had a syncopal event or a seizure. He appeared to be confused. He was noted to have some left-sided weakness by EMS. In the emergency room he had 3 out of 5 strength in the left upper extremity, 4 out of 5 strength in the left lower extremity. He had a left pronator drift. Imaging revealed a negative chest x-ray, negative left femur film, negative left tib-fib film, negative CT of the pelvis. He had a CTA of the head that showed a right MCA, M2, M3 occlusion. He had a CTA of the neck that showed mild bilateral carotid stenosis, mild right vertebral artery stenosis. neurology was contacted and recommended admission with a follow-up MRI and neurology consult. He was started on dual antiplatelet therapy, aspirin and Plavix. Review of Systems Narrative: He offers no new complaints. He thinks he may have bumped the right side of his head but its not bothering him now. He has not had any chest pain or shortness of breath. He does not feel dizzy. He does not notice any weakness on the left or right side. He is able to demonstrate good range of motion volitionally. He is not having any GI or symptoms other than it takes a while to get my urine started. He now has a Andres catheter. He has been scratching his skin in a few places but he is not sure why. He has some red spots on his arm and he does not know where those came from. PFSH All Active Problems Brain TIA (Acute) Stenosis of right middle cerebral artery (Acute) MRSA colonization (Acute) Type 2 diabetes mellitus (Chronic) Medical History Ambulatory dysfunction Anemia, mild BPH (benign prostatic hyperplasia) CAD (coronary artery disease) CHF (congestive heart failure) Diabetes Dizziness and giddiness E coli infection GERD (gastroesophageal reflux disease) HLD (hyperlipidemia) Hypercholesteremia Hyperglycemia Hypertension Memory changes Middle cerebral artery stenosis Mobility impaired Neuropathy Obesity Progressive dementia with uncertain etiology Psoriasis Rash Sepsis secondary to UTI Stroke Tachy-sara syndrome Tinea corporis Urinary incontinence Surgical History (Updated 11/18/22 @ 06:24 by Romaine Mayo MD) H/O hernia repair H/O surgical procedure a. Aortic valve replacement 04/2013 b. left THR 10/04/2013 c. Left TKR 6-7 years ago Hx of CABG S/P appendectomy S/P AVR (aortic valve replacement) 04/2013 S/P knee replacement Social History Smoking/Tobacco Use Status: Former Tobacco Use Smoking risk assessment performed?: Yes Drug use: Never Substance use type: does not use Housing: long term Do you feel safe at home: Yes Do you feel safe in your relationship?: Yes Additional Social history: Current resident of [facility] Meds Allergies and Home Medications Allergies Allergy/AdvReac Type Severity Reaction Status Date / Time No Known Allergies Allergy Verified 11/17/22 19:52 Home Medications Medication Instructions Recorded Confirmed Type acetaminophen 500 mg tablet 500 mg PO TID PRN 02/27/14 08/02/22 History (Acetaminophen Extra Strength) aspirin 81 mg tablet,delayed 81 mg PO DAILY 11/07/21 08/02/22 History release atorvastatin 40 mg tablet 40 mg PO QHS 11/07/21 08/02/22 History bisacodyl 10 mg rectal suppository 10 mg UT DAILY PRN 11/07/21 08/02/22 History clotrimazole 1 % topical cream 1 applic topical BID PRN 11/07/21 08/02/22 History dextrose 40 % oral gel (Glucose 15 g PO Q15M PRN 11/07/21 08/02/22 History Gel) glucagon 1 mg injection kit See Rx Instructions IM .COMPLEX 11/07/21 08/02/22 History magnesium hydroxide 400 mg/5 mL 30 ml PO DAILY PRN 11/07/21 08/02/22 History oral suspension multivitamin 1 tab PO DAILY 11/07/21 11/17/22 History sodium phosphates 19 gram-7 118 ml UT ONCE PRN 11/07/21 08/02/22 History gram/197 mL enema (Fleet Enema Extra) magnesium oxide 400 mg (241.3 mg 400 mg PO BID #0 tabs 08/04/22 Rx magnesium) tablet metformin 1,000 mg tablet 1,000 mg PO BIDWMEAL 11/17/22 11/17/22 History nitroglycerin 0.4 mg sublingual 0.4 mg sublingual PRN PRN 11/17/22 11/17/22 History tablet Exam Narrative Exam Narrative: On exam he is alert and awake. He makes good eye contact and is able to converse easily. 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 He is not clear on the date but is oriented to person and place. His speech sounds clear. He has no facial asymmetry. He is able to follow commands correctly. He has good movement of his upper extremities that appears to be of equal strength right and left. He can flex and extend both his right and left leg against gravity without any apparent asymmetry. His heart sounds are regular. He has a 1/6 soft systolic murmur in the right upper sternal border. His lung sounds are clear on the right and left his abdomen is moderately obese overall soft and nontender. He has an umbilical hernia that is about 5 cm in diameter it soft and nontender. He had no inguinal hernia. The decubital area has a large DuoDERM dressing that I did not take down. Nursing tells me he has a stage II minor ulceration there in a couple of places. The lower extremities have LUCAS hose in place. They are symmetrical and show no evidence of edema. Nursing noted a small scab in the left heel region. His left forearm has some ecchymoses, no open areas. Its not tender. He is not sure where this came from he has some minor scratching around his right shoulder area that is partially healed. No other obvious sores or lesions. He has a Andres catheter in place. Results Imaging Chest x-ray: report reviewed Abdomen CT scan report/results: report reviewed Additional studies: CTA head showed right MCA M2 occlusion M3 proximal occlusion CTA neck mild bilateral carotid stenosis, mild right vertebral artery stenosis Labs 11/17/22 17:32 11/17/22 17:32 Labs: Laboratory Results - last 24 hr 11/17/22 11/17/22 11/17/22 17:32 17:32 17:32 WBC 6.20 RBC 3.63 L Hgb 12.4 L Hct 35.4 L MCV 98 H MCH 34.2 H MCHC 35.0 RDW 13.4 Plt Count 159 MPV 10.7 Immature Gran % 0.5 Neutrophils % 79.8 Lymphocytes % 15.5 Monocytes % 2.4 Eosinophils % 1.5 Basophils % 0.3 Nucleated RBC % 0.0 Absolute Neutrophils 4.95 Absolute Lymphocytes 0.96 L Absolute Monocytes 0.15 Absolute Eosinophils 0.09 Absolute Basophils 0.02 PT 10.5 INR 1.0 APTT 23.8 Sodium 137 Potassium 4.1 Chloride 100 Carbon Dioxide 26.1 Anion Gap 10.9 BUN 17 Creatinine 1.3 Est GFR (CKD-EPI 2020) 55.88 Glucose 198 H Calcium 8.8 Total Bilirubin 1.1 H AST 18 ALT 36 Alkaline Phosphatase 95 Creatine Kinase 51 Troponin I < 50 Total Protein 7.6 Albumin 3.6 TSH 2.56 Urine Color Urine Clarity Urine pH Ur Specific [place] Urine Protein Urine Ketones Urine Blood Urine Nitrite Urine Bilirubin Urine Urobilinogen Ur Leukocyte Esterase Urine RBC Urine WBC Ur Epithelial Cells Urine Crystals Urine Bacteria Urine Casts Urine Mucus Ur Culture Indicated? Urine Glucose Ethyl Alcohol < 3.0 11/17/22 11/17/22 20:43 20:59 WBC RBC Hgb Hct MCV MCH MCHC RDW Plt Count MPV Immature Gran % Neutrophils % Lymphocytes % Monocytes % Eosinophils % Basophils % Nucleated RBC % Absolute Neutrophils Absolute Lymphocytes Absolute Monocytes Absolute Eosinophils Absolute Basophils PT INR APTT Sodium Potassium Chloride Carbon Dioxide Anion Gap BUN Creatinine Est GFR (CKD-EPI 2020) Glucose Calcium Total Bilirubin AST ALT Alkaline Phosphatase Creatine Kinase Troponin I < 50 Total Protein Albumin TSH Urine Color Yellow Urine Clarity Cloudy Urine pH >= 9.0 H Ur Specific [place] 1.015 Urine Protein >=300 H Urine Ketones Trace H Urine Blood Large H Urine Nitrite Positive H Urine Bilirubin Negative Urine Urobilinogen 1.0 H Ur Leukocyte Esterase Moderate H Urine RBC 10-20 H Urine WBC 10-20 H Ur Epithelial Cells Few Urine Crystals Negative Urine Bacteria Many Urine Casts 0-2 Hyaline Urine Mucus Moderate Ur Culture Indicated? Yes Urine Glucose Negative Ethyl Alcohol Last Vital Signs Temp 36.8 C 11/18/22 05:28 Pulse 70 11/18/22 05:28 Resp 18 11/18/22 05:28 BP 135/69 11/18/22 05:28 Pulse Ox 97 11/18/22 05:28 PAWSS Pt Consumed Any Amount of Alcohol Within the Last 30 days OR had positive JUAN FRANCISCO Upon Admission: No Time Spent Time spent with Patient: 40-54 minutes Time was spent: preparing to see the patient(eg.review tests), obtaining and/or reviewing separately otained hiistory, ordering medications,tests, procedures, referring, communicating with other health plant health care technician and indepentently interpreting results
[2022-11-18 06:50] LABS: Abs Immature Grans 0.03 10^3/uL (0.0-0.06); Absolute Basophil Count 0.02 10^3/uL (0.0-0.2); Absolute Eosinophil Count 0.07 10^3/uL (0.0-0.7); Absolute Lymphocyte Count 0.66 10^3/uL (1.2-3.4); Absolute Monocyte Count 0.13 10^3/uL (0.1-0.8); Absolute Neutrophil Count 4.45 10^3/uL (1.2-6.7); Basophils % 0.4; Eosinophils % 1.3; HCT 33.6 % (40.0-50.0); HGB 11.5 g/dL (13.5-17.5); Immature Grans % 0.6; Lymphocytes % 12.3; MCH 33.6 pg (27.0-33.0); MCHC 34.2 % (32.0-36.0); MCV 98 fL (80-95); MPV 10.8 fL (8.0-11.0); Monocytes % 2.4; Platelet Count 147 10^3/uL (130-400); RBC 3.42 10^6/uL (4.36-5.78); RDW 13.6 % (11.8-14.1); RDW-SD 48.3 fL; WBC 5.36 10^3/uL (4.4-10.8)
[2022-11-18 07:59] LABS: Calculated LDL 40 mg/dL (<100); Cholesterol 93 mg/dL (<200); HDL Cholesterol 43 mg/dL (40-60); Triglyceride 53 mg/dL (<150)
[2022-11-18 08:07] LABS: Anion Gap 8.2 mmol/L (3-11); BUN 13 mg/dL (7-18); CO2 25.8 mmol/L (21.0-32.0); Calcium 8.5 mg/dL (8.5-10.1); Chloride 106 mmol/L (98-107); Estimated GFR 76.56 (mL/min/1.73m2); Glucose 171 mg/dL (74-106); Sodium 140 mmol/L (136-145)
[2022-11-18 08:19] LABS: Hemoglobin A1C 7.2 % (<5.7)
[2022-11-18] MEDS: Enoxaparin 40 MG/0.4 ML SYR SC (08:23)
[2022-11-18] MEDS: Clopidogrel 75 MG TAB PO (08:23)
[2022-11-18] MEDS: Aspirin E.C. 81 MG TABEC PO (08:23)
[2022-11-18] MEDS: Nystatin POWDER 60 GM JAR TP ×2 (08:24→20:29)
[2022-11-18 08:47] LABS: Bilirubin Negative (Negative); Blood Large (Negative); Clarity Turbid (Clear); Glucose Negative (Negative); Ketones 40 mg/dL (Negative); Leukocyte Esterase Moderate (Negative); Nitrite Positive (Negative); Specific Gravity 1.015 (1.005-1.025); pH 7.5 (5-8)
[2022-11-18 08:55] LABS: Epithelial Cells Negative HPF (Negative); RBC >50 HPF (0-2); WBC >50 HPF (0-5)
[2022-11-18 08:56] LABS: Bacteria Moderate HPF (Negative); C & S Indicated? Yes; Crystals Negative HPF (Negative); Mucus Negative (Negative)
--- NOTE | 2022-11-18 09:03 | INITIAL_ITS ---
Date of service: 11/18/22 Time of Service: 09:03 Care Management Initial Assmt Initial Assessment REASON FOR HOSPITALIZATION:: TIA PREVIOUS FUNCTIONAL STATUS/SOCIAL/FAMILY SUPPORTS:: Alvarez resides at [facility], where he receives his care. His and daughter live locally and visit him regularly. He is dependent on the facility for his ADLs. CURRENT FUNCTIONAL STATUS:: Alvarez was sitting up in his chair when CM met with him. He stated that he is feeling good today. CM asked him how things are going at [facility], and he said that he enjoys it there. He stated that his visits him regularly. Per report, he will have an MRI and Neuro consult today, and his disposition will depend on the outcome of both. CM discussed his discharge plan, which will be for him to return to [facility] once medically ready, and he is agreeable to that plan. CM will continue to follow. ADVANCE DIRECTIVES:: None on file; CM will offer forms. Has patient been provided with info about the portal/API?: Yes Did the patient sign up for the portal?: No CODE STATUS:: DNR/DNI INSURANCE COVERAGE / FINANCIAL ISSUES:: [employer] M[employer] replacement CURRENT HOME/COMMUNITY SERVICES/EQUIPMENT:: Alvarez resides at [facility] currently PRIMARY CARE PHYSICIAN:: Sony Simmons POTENTIAL DISCHARGE NEEDS:: Evaluations for further needs, coordinated return to [facility] PATIENT/FAMILY EDUCATION NEEDS:: Review discharge instructions and limitations, discussion of self care needs including ask me three. ANTICIPATED BARRIERS TO DISCHARGE:: None identified. TRANSPORTATION:: facility w/c van PLAN:: Anticipate Alvarez will return to [facility] once medically cleared. He will have an MRI and a Neuro consult today. He will follow up with facility providers and his discharge plan of care. CM will continue to follow. PFSH All Active Problems Brain TIA (Acute) Stenosis of right middle cerebral artery (Acute) MRSA colonization (Acute) Type 2 diabetes mellitus (Chronic) Medical History Ambulatory dysfunction Anemia, mild BPH (benign prostatic hyperplasia) CAD (coronary artery disease) CHF (congestive heart failure) Diabetes Dizziness and giddiness E coli infection GERD (gastroesophageal reflux disease) HLD (hyperlipidemia) Hypercholesteremia Hyperglycemia Hypertension Memory changes Middle cerebral artery stenosis Mobility impaired Neuropathy Obesity Progressive dementia with uncertain etiology Psoriasis Rash Sepsis secondary to UTI Stroke Tachy-sara syndrome Tinea corporis Urinary incontinence Surgical History (Updated 11/18/22 @ 06:24 by Romaine Mayo MD) H/O hernia repair H/O surgical procedure a. Aortic valve replacement 04/2013 b. left THR 10/04/2013 c. Left TKR 6-7 years ago Hx of CABG S/P appendectomy S/P AVR (aortic valve replacement) 04/2013 S/P knee replacement Social History Smoking/Tobacco Use Status: Former Tobacco Use Smoking risk assessment performed?: Yes Drug use: Never Substance use type: does not use Housing: snf Do you feel safe at home: Yes Do you feel safe in your relationship?: Yes Additional Social history: Current resident of [facility]
--- NOTE | 2022-11-18 10:27 | NUR.NOTE ---
Spoke with patients daughter & gave update on patients care. Nursing Note:
--- NOTE | 2022-11-18 11:48 | NCONE_ITS ---
Date of service: 11/18/22 Time of Service: 11:48 Assessment and Plan Assessment and plan (1) Nonspecific paroxysmal spell: Status: Acute (2) Dementia: Status: Chronic (3) Stroke: Status: Chronic Assessment and plan: Mr. Farmer presents s/p ?fall vs ?syncope vs ?seizure with subsequent transient L hemiparesis complicated by baseline dementia and prior strokes. Work-up: -MRI brain w/o to asses for acute stroke -TTE with bubble study if MRI shows acute stroke -Telemetry -EEG to assess for epileptic discharges/seizure activity Medications: -continue DAPT aspirin 81mg + clopidogrel 75mg daily for secondary stroke prevention for now -continue pravastatin 80mg daily for secondary stroke prevention for now -no need to start a seizure medication at this time, as unclear if he had a seizure or not Other: -Palliative care consult for goals of care - 1 year ago, he was not interested in intervention/monitoring of carotid stenosis -Allow permissive hypertension -Physical therapy for leg weakness, gait training -Occupation therapy for upper extremity weakness, activities of daily living -Speech therapy for speech and swallow History of Present Illness History of Present Illness Chief Complaint: ?stroke ?seizure Narrative: Handedness: right. HPI: Mr. Farmer is a 77 year-old man with HTN, HLD, DM2, heart disease s/p CABG x2 and aortic valve replacement in May 2013, BPH, and GERD.?He has known cognitive impairment and prior silent strokes (found on imaging in August 2021). He is a resident of [facility] skilled nursing. I previously met Mr. Farmer for dementia and stroke and last saw him in clinic in October 2021. Mr. Farmer was brought to the ER yesterday 11/17/22 from his residence s/p ?fall, with ?seizure-like activity?. Unclear. I did call the skilled nursing and talked to the nurse who today who normally cares for him. She was not working yesterday. No notes written by nursing yesterday. But her understanding is that he may have been found on the ground with seizure-like activity. She notes that he does not normally fall. In the ER, he was noted to have an apparent L hemiparesis of the arm and leg. This seems to have improved, but unclear over what time frame is unclear. Mr. Farmer is not aware of ever having a L hemiparesis. He is not able to recall events of yesterday. He says he remembers falling but can't tell me any details about it. He denies any pain on his body, no headaches. He has been started on DAPT s/p clopidgrel load of 300mg (was on ASA 81mg daily outpatient along with atorvastatin) due to concern for stroke. Current Work-up: -Labs (11/17/22): W 6.2, Hgb 12.4, Na 137, K 4.1, Cr 1.3, Ca 8.8,CK 51, trop x2 neg, TSH 2.56, UA with moderate lk esterase, ETOH <3 -CTH (11/17/22): No acute findings. Old L>R frontal strokes and white matter changes. Old L cerebellar lacune - the latter was seen on [facility] imaging from July 2022, but no on imaging from August 2021. I reviewed these images personally and this is my personal interpretation. 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 L ICA stenosis ~50% at the bifurcation due to plaque. I reviewed these images personally and this is my personal interpretation. -Labs (11/18/22): A1c 7.2, LDL 40 Prior Testing: -MOCA v.1 (11/07/21) = 11/30 (1/5 VS/EF, 2/6 attention, 1/3 language, 0/5 DR, 3/15 MIS, 3/6 orientation) -A1c (08/03/22): 9.8 -MRI Brain (09/11/21): no acute findings.? Old L>R frontal infarcts with severe chronic vascular disease.? -MRA head/neck (09/11/21): Fenestrated basilar artery - small area.? ? R MCA focal stenosis as per rads. MRA neck limited by motion artifact but appears to have bilateral mild-moderate stenosis, L>R, per my view. Review of Systems All systems reviewed & are unremarkable except as noted in HPI and below PFSH All Active Problems (Updated 11/18/22 @ 12:31 by Amita Valentine MD) Stroke (Chronic) Dementia (Chronic) Nonspecific paroxysmal spell (Acute) Brain TIA (Acute) Stenosis of right middle cerebral artery (Acute) MRSA colonization (Acute) Type 2 diabetes mellitus (Chronic) Medical History (Updated 11/18/22 @ 12:31 by Amita Valentine MD) Ambulatory dysfunction Anemia, mild BPH (benign prostatic hyperplasia) CAD (coronary artery disease) CHF (congestive heart failure) Diabetes Dizziness and giddiness E coli infection GERD (gastroesophageal reflux disease) HLD (hyperlipidemia) Hypercholesteremia Hyperglycemia Hypertension Memory changes Middle cerebral artery stenosis Mobility impaired Neuropathy Obesity Psoriasis Rash Sepsis secondary to UTI Tachy-sara syndrome Tinea corporis Urinary incontinence Surgical History (Updated 11/18/22 @ 06:24 by Romaine Mayo MD) H/O hernia repair H/O surgical procedure a. Aortic valve replacement 04/2013 b. left THR 10/04/2013 c. Left TKR 6-7 years ago Hx of CABG S/P appendectomy S/P AVR (aortic valve replacement) 04/2013 S/P knee replacement Social History Smoking/Tobacco Use Status: Former Tobacco Use Smoking risk assessment performed?: Yes Drug use: Never Substance use type: does not use Housing: skilled nursing Do you feel safe at home: Yes Do you feel safe in your relationship?: Yes Additional Social history: Current resident of [facility] Visit Medication and Allergies Active Medications Generic Name Dose Route Start Last Admin Trade Name Freq PRN Reason Stop Dose Admin Acetaminophen 0 mg 11/17/22 19:50 Acetaminophen 325 Mg Tab PO Q4H PRN PRN Al Hydrox/Mg Hydrox/Simethicone 30 ml 11/17/22 19:50 Mylanta Suspension 30 Ml Cup PO Q2H PRN PRN Aspirin 81 mg 11/18/22 08:30 11/18/22 08:23 Aspirin E.C. 81 Mg Tabec PO 81 mg DAILY JOHN Administration Clopidogrel Bisulfate 75 mg 11/18/22 08:30 11/18/22 08:23 Clopidogrel 75 Mg Tab PO 75 mg DAILY JOHN Administration Dimethicone/Zinc Oxide 0 gm 11/17/22 19:50 Yon Protect Cream 142 Gm Tube TP PRN PRN Docusate Sodium 100 mg 11/17/22 19:50 Docusate Sodium 100 Mg Cap PO TID PRN PRN Enoxaparin Sodium 40 mg 11/18/22 08:30 11/18/22 08:23 Enoxaparin 40 Mg/0.4 Ml Syr SC 40 mg DAILY JOHN Administration Famotidine 20 mg 11/17/22 20:03 Famotidine 20 Mg Tab PO BID PRN PRN Magnesium Hydroxide 30 ml 11/17/22 19:50 Milk Of Magnesia 30 Ml Cup PO DAILY PRN PRN Metformin HCl 1,000 mg 11/19/22 17:00 Metformin 500 Mg Tab PO BID@0800,1700 JOHN Nitroglycerin 0.4 mg 11/17/22 20:06 Nitroglycerin 0.4 Mg Tab SL PRN PRN Nystatin 60 gm 11/18/22 08:30 11/18/22 08:24 Nystatin Powder 60 Gm Jar TP 1 applic BID JOHN Administration Polyethylene Glycol 17 gm 11/17/22 19:50 Polyethylene Glycol 3350 17 Gm Packet PO DAILY PRN PRN Constipation Pravastatin Sodium 80 mg 11/17/22 21:18 11/17/22 22:23 Pravastatin 20 Mg Tab PO 80 mg QPM JOHN Administration Sodium Chloride 0 ml 11/17/22 18:21 11/17/22 22:24 Normal Saline Flush 10 Ml Syr IVP 30 ml PRN PRN Administration Allergies No Known Allergies Allergy (Verified 11/17/22 19:52) Exam Narrative Exam Narrative: Physical Exam: Somewhat limited exam due to contact precautions and mental status. Gen: Patient of apparent stated age, NAD Head and face: no facial or cranial abnormalities Neck: Supple, no meningismus, no occipital tenderness CV: RRR Resp: CTA B/L Abd: soft, nontender, nondistended Ext: Compression stockings to knees in place on LE. No clubbing or cyanosis. No bony deformity. Neuro Exam: Language: fluency and repetition intact; impaired naming and comprehension - able to follow single step across the midline and 2 simple steps but had to have instructions multiple times Mental Status: AAOxself and place only, current events and fund of knowledge limited Speech: no dysarthria Cranial nerves: Funduscopy: not performed CN II: visual pal intact CN III, IV, : extraocular movements intact by observation - he was not able to volitionally move his eyes in any direction, no nystagmus, pupils symmetric and reactive to light CN V: face sensation intact to PP CN VII: no facial asymmetry noted CN VIII: hearing intact bilaterally CN IX, X: palate rises symmetrically CN XI: trapezius/SCM 5/5 bilaterally CN XII: protrudes tongue symmetrically Sensory: intact to PP in the bilateral UE; reduced in the bilateral LE? complicated by compression stockings Motor: bulk and tone intact. Fine motor movements reduced bilaterally, maybe slightly slower on L. No pronator drift. Strength 5/5 throughout the bilateral UE including the deltoids, biceps, triceps, wrist extensors. 4/5 bilateral LE proximal and distal, slightly weaker in the L hip flexors. Reflexes: hyporeflexic throughout; +R Babinski, L toe downgoing Coordination: FTN and HTS intact bilaterally Gait: not seen Results Last Vital Signs Temp 98.6 F 11/18/22 11:01 Pulse 74 11/18/22 11:01 Resp 16 11/18/22 11:01 BP 138/75 11/18/22 11:01 Pulse Ox 96 11/18/22 11:01 Labs 11/18/22 06:05 11/18/22 06:05 Labs: Laboratory Results - last 24 hr 11/17/22 11/17/22 11/17/22 17:32 17:32 17:32 WBC 6.20 RBC 3.63 L Hgb 12.4 L Hct 35.4 L MCV 98 H MCH 34.2 H MCHC 35.0 RDW 13.4 Plt Count 159 MPV 10.7 Immature Gran % 0.5 Neutrophils % 79.8 Lymphocytes % 15.5 Monocytes % 2.4 Eosinophils % 1.5 Basophils % 0.3 Nucleated RBC % 0.0 Absolute Neutrophils 4.95 Absolute Lymphocytes 0.96 L Absolute Monocytes 0.15 Absolute Eosinophils 0.09 Absolute Basophils 0.02 PT 10.5 INR 1.0 APTT 23.8 Sodium 137 Potassium 4.1 Chloride 100 Carbon Dioxide 26.1 Anion Gap 10.9 BUN 17 Creatinine 1.3 Est GFR (CKD-EPI 2020) 55.88 Glucose 198 H Hemoglobin A1c Calcium 8.8 Total Bilirubin 1.1 H AST 18 ALT 36 Alkaline Phosphatase 95 Creatine Kinase 51 Troponin I < 50 Total Protein 7.6 Albumin 3.6 Triglycerides Total Cholesterol LDL Cholesterol, Calc HDL Cholesterol TSH 2.56 Urine Color Urine Clarity Urine pH Ur Specific [place] Urine Protein Urine Ketones Urine Blood Urine Nitrite Urine Bilirubin Urine Urobilinogen Ur Leukocyte Esterase Urine RBC Urine WBC Ur Epithelial Cells Urine Crystals Urine Bacteria Urine Casts Urine Mucus Ur Culture Indicated? Urine Glucose Ethyl Alcohol < 3.0 11/17/22 11/17/22 11/18/22 20:43 20:59 06:05 WBC RBC Hgb Hct MCV MCH MCHC RDW Plt Count MPV Immature Gran % Neutrophils % Lymphocytes % Monocytes % Eosinophils % Basophils % Nucleated RBC % Absolute Neutrophils Absolute Lymphocytes Absolute Monocytes Absolute Eosinophils Absolute Basophils PT INR APTT Sodium Potassium Chloride Carbon Dioxide Anion Gap BUN Creatinine Est GFR (CKD-EPI 2020) Glucose Hemoglobin A1c Calcium Total Bilirubin AST ALT Alkaline Phosphatase Creatine Kinase Troponin I < 50 Total Protein Albumin Triglycerides 53 Total Cholesterol 93 LDL Cholesterol, Calc 40 HDL Cholesterol 43 TSH Urine Color Yellow Urine Clarity Cloudy Urine pH >= 9.0 H Ur Specific [place] 1.015 Urine Protein >=300 H Urine Ketones Trace H Urine Blood Large H Urine Nitrite Positive H Urine Bilirubin Negative Urine Urobilinogen 1.0 H Ur Leukocyte Esterase Moderate H Urine RBC 10-20 H Urine WBC 10-20 H Ur Epithelial Cells Few Urine Crystals Negative Urine Bacteria Many Urine Casts 0-2 Hyaline Urine Mucus Moderate Ur Culture Indicated? Yes Urine Glucose Negative Ethyl Alcohol 11/18/22 11/18/22 11/18/22 06:05 06:05 06:05 WBC 5.36 RBC 3.42 L Hgb 11.5 L Hct 33.6 L MCV 98 H MCH 33.6 H MCHC 34.2 RDW 13.6 Plt Count 147 MPV 10.8 Immature Gran % 0.6 Neutrophils % 83.0 Lymphocytes % 12.3 Monocytes % 2.4 Eosinophils % 1.3 Basophils % 0.4 Nucleated RBC % 0.0 Absolute Neutrophils 4.45 Absolute Lymphocytes 0.66 L Absolute Monocytes 0.13 Absolute Eosinophils 0.07 Absolute Basophils 0.02 PT INR APTT Sodium 140 Potassium 4.0 Chloride 106 Carbon Dioxide 25.8 Anion Gap 8.2 BUN 13 Creatinine 1.0 Est GFR (CKD-EPI 2020) 76.56 Glucose 171 H Hemoglobin A1c 7.2 H Calcium 8.5 Total Bilirubin AST ALT Alkaline Phosphatase Creatine Kinase Troponin I Total Protein Albumin Triglycerides Total Cholesterol LDL Cholesterol, Calc HDL Cholesterol TSH Urine Color Urine Clarity Urine pH Ur Specific [place] Urine Protein Urine Ketones Urine Blood Urine Nitrite Urine Bilirubin Urine Urobilinogen Ur Leukocyte Esterase Urine RBC Urine WBC Ur Epithelial Cells Urine Crystals Urine Bacteria Urine Casts Urine Mucus Ur Culture Indicated? Urine Glucose Ethyl Alcohol 11/18/22 08:40 WBC RBC Hgb Hct MCV MCH MCHC RDW Plt Count MPV Immature Gran % Neutrophils % Lymphocytes % Monocytes % Eosinophils % Basophils % Nucleated RBC % Absolute Neutrophils Absolute Lymphocytes Absolute Monocytes Absolute Eosinophils Absolute Basophils PT INR APTT Sodium Potassium Chloride Carbon Dioxide Anion Gap BUN Creatinine Est GFR (CKD-EPI 2020) Glucose Hemoglobin A1c Calcium Total Bilirubin AST ALT Alkaline Phosphatase Creatine Kinase Troponin I Total Protein Albumin Triglycerides Total Cholesterol LDL Cholesterol, Calc HDL Cholesterol TSH Urine Color Dark Yellow Urine Clarity Turbid Urine pH 7.5 Ur Specific [place] 1.015 Urine Protein 100 H Urine Ketones 40 H Urine Blood Large H Urine Nitrite Positive H Urine Bilirubin Negative Urine Urobilinogen 4.0 H Ur Leukocyte Esterase Moderate H Urine RBC >50 H Urine WBC >50 H Ur Epithelial Cells Negative Urine Crystals Negative Urine Bacteria Moderate Urine Casts Urine Mucus Negative Ur Culture Indicated? Yes Urine Glucose Negative Ethyl Alcohol
--- NOTE | 2022-11-18 13:04 | W.PM.PROGNOT ---
Date of Service Date of service: 11/18/22 Time of Service: 13:05 Assessment and Plan Assessment and plan (1) UTI (urinary tract infection): Status: Acute Assessment and plan: urine culture pending may have accounted for symptoms prompting ED visit ceftriaxone 1 gm IVPB daily while cultures pending. no symptoms of systemic infection. discussed with DR Da Silva ] see H&P for other problems/plan. add on note Subjective Subjective Patient reports: no new complaints Interval history since last seen: at baseline Objective Last Vital Signs Temp 37.0 C 11/18/22 11:01 Pulse 74 11/18/22 11:01 Resp 16 11/18/22 11:01 BP 138/75 11/18/22 11:01 Pulse Ox 96 11/18/22 11:01 Laboratory Results - last 24 hr 11/17/22 11/17/22 11/17/22 17:32 17:32 17:32 WBC 6.20 RBC 3.63 L Hgb 12.4 L Hct 35.4 L MCV 98 H MCH 34.2 H MCHC 35.0 RDW 13.4 Plt Count 159 MPV 10.7 Immature Gran % 0.5 Neutrophils % 79.8 Lymphocytes % 15.5 Monocytes % 2.4 Eosinophils % 1.5 Basophils % 0.3 Nucleated RBC % 0.0 Absolute Neutrophils 4.95 Absolute Lymphocytes 0.96 L Absolute Monocytes 0.15 Absolute Eosinophils 0.09 Absolute Basophils 0.02 PT 10.5 INR 1.0 APTT 23.8 Sodium 137 Potassium 4.1 Chloride 100 Carbon Dioxide 26.1 Anion Gap 10.9 BUN 17 Creatinine 1.3 Est GFR (CKD-EPI 2020) 55.88 Glucose 198 H Hemoglobin A1c Calcium 8.8 Total Bilirubin 1.1 H AST 18 ALT 36 Alkaline Phosphatase 95 Creatine Kinase 51 Troponin I < 50 Total Protein 7.6 Albumin 3.6 Triglycerides Total Cholesterol LDL Cholesterol, Calc HDL Cholesterol TSH 2.56 Urine Color Urine Clarity Urine pH Ur Specific [place] Urine Protein Urine Ketones Urine Blood Urine Nitrite Urine Bilirubin Urine Urobilinogen Ur Leukocyte Esterase Urine RBC Urine WBC Ur Epithelial Cells Urine Crystals Urine Bacteria Urine Casts Urine Mucus Ur Culture Indicated? Urine Glucose Ethyl Alcohol < 3.0 11/17/22 11/17/22 11/18/22 20:43 20:59 06:05 WBC RBC Hgb Hct MCV MCH MCHC RDW Plt Count MPV Immature Gran % Neutrophils % Lymphocytes % Monocytes % Eosinophils % Basophils % Nucleated RBC % Absolute Neutrophils Absolute Lymphocytes Absolute Monocytes Absolute Eosinophils Absolute Basophils PT INR APTT Sodium Potassium Chloride Carbon Dioxide Anion Gap BUN Creatinine Est GFR (CKD-EPI 2020) Glucose Hemoglobin A1c Calcium Total Bilirubin AST ALT Alkaline Phosphatase Creatine Kinase Troponin I < 50 Total Protein Albumin Triglycerides 53 Total Cholesterol 93 LDL Cholesterol, Calc 40 HDL Cholesterol 43 TSH Urine Color Yellow Urine Clarity Cloudy Urine pH >= 9.0 H Ur Specific [place] 1.015 Urine Protein >=300 H Urine Ketones Trace H Urine Blood Large H Urine Nitrite Positive H Urine Bilirubin Negative Urine Urobilinogen 1.0 H Ur Leukocyte Esterase Moderate H Urine RBC 10-20 H Urine WBC 10-20 H Ur Epithelial Cells Few Urine Crystals Negative Urine Bacteria Many Urine Casts 0-2 Hyaline Urine Mucus Moderate Ur Culture Indicated? Yes Urine Glucose Negative Ethyl Alcohol 11/18/22 11/18/22 11/18/22 06:05 06:05 06:05 WBC 5.36 RBC 3.42 L Hgb 11.5 L Hct 33.6 L MCV 98 H MCH 33.6 H MCHC 34.2 RDW 13.6 Plt Count 147 MPV 10.8 Immature Gran % 0.6 Neutrophils % 83.0 Lymphocytes % 12.3 Monocytes % 2.4 Eosinophils % 1.3 Basophils % 0.4 Nucleated RBC % 0.0 Absolute Neutrophils 4.45 Absolute Lymphocytes 0.66 L Absolute Monocytes 0.13 Absolute Eosinophils 0.07 Absolute Basophils 0.02 PT INR APTT Sodium 140 Potassium 4.0 Chloride 106 Carbon Dioxide 25.8 Anion Gap 8.2 BUN 13 Creatinine 1.0 Est GFR (CKD-EPI 2020) 76.56 Glucose 171 H Hemoglobin A1c 7.2 H Calcium 8.5 Total Bilirubin AST ALT Alkaline Phosphatase Creatine Kinase Troponin I Total Protein Albumin Triglycerides Total Cholesterol LDL Cholesterol, Calc HDL Cholesterol TSH Urine Color Urine Clarity Urine pH Ur Specific [place] Urine Protein Urine Ketones Urine Blood Urine Nitrite Urine Bilirubin Urine Urobilinogen Ur Leukocyte Esterase Urine RBC Urine WBC Ur Epithelial Cells Urine Crystals Urine Bacteria Urine Casts Urine Mucus Ur Culture Indicated? Urine Glucose Ethyl Alcohol 11/18/22 08:40 WBC RBC Hgb Hct MCV MCH MCHC RDW Plt Count MPV Immature Gran % Neutrophils % Lymphocytes % Monocytes % Eosinophils % Basophils % Nucleated RBC % Absolute Neutrophils Absolute Lymphocytes Absolute Monocytes Absolute Eosinophils Absolute Basophils PT INR APTT Sodium Potassium Chloride Carbon Dioxide Anion Gap BUN Creatinine Est GFR (CKD-EPI 2020) Glucose Hemoglobin A1c Calcium Total Bilirubin AST ALT Alkaline Phosphatase Creatine Kinase Troponin I Total Protein Albumin Triglycerides Total Cholesterol LDL Cholesterol, Calc HDL Cholesterol TSH Urine Color Dark Yellow Urine Clarity Turbid Urine pH 7.5 Ur Specific [place] 1.015 Urine Protein 100 H Urine Ketones 40 H Urine Blood Large H Urine Nitrite Positive H Urine Bilirubin Negative Urine Urobilinogen 4.0 H Ur Leukocyte Esterase Moderate H Urine RBC >50 H Urine WBC >50 H Ur Epithelial Cells Negative Urine Crystals Negative Urine Bacteria Moderate Urine Casts Urine Mucus Negative Ur Culture Indicated? Yes Urine Glucose Negative Ethyl Alcohol PAWSS Pt Consumed Any Amount of Alcohol Within the Last 30 days OR had positive JUAN FRANCISCO Upon Admission: No Time Spent with Patient Time Spent with Patient: <25 minutes Time was spent: ordering medications,tests, procedures
--- NOTE | 2022-11-18 13:07 | DI.US_ITS ---
APPROVED REPORT EXAM: Comprehensive 2D, Doppler, and color-flow Echocardiogram Patient Location: In-Patient Room/Bed: 208 Flight Paramedic: Vignesh Bennett RDCS Indications: CVA, bubble study , CHF, CAD, HTN, s/p AVR, s/p CABG 2013 Echo Enhancing Agent Indication: Rule out Shunt Agent(s) / Amount(s) Used: Agitated Saline 30.0 cc Comments: Contrast study was performed with 3 IV injections of 10ccs of agitated normal saline, at re st, with cough and post valsalva maneuver. Patient was unable to cooperate with maneuvers. Negative contrast study for shunt flow. Other Information Study Quality: Fair. Technically limited study due to body habitus, inability to position patient, pa tient unable to perform manuevers. Conclusion Normal left ventricular wall thickness and chamber size. Ejection fraction is 55%. Wall motion is n ormal Normal right ventricular size and systolic function Both atria are normal in size No intracardiac shunt is identified using injection of agitated saline Bioprosthetic aortic valve with appropriate gradients There is no additional structural or hemodynamically significant valvular disease Mildly dilated ascending aorta 3.47 cm Wall motion Left Ventricle The left ventricle is normal size. The left ventricular systolic function is normal. The left ventric ular ejection fraction is within the normal range. There is normal left ventricular wall thickness. T here is normal LV segmental wall motion. There is no ventricular septal defect visualized. LVEF is 55 %. Right Ventricle The right ventricle is normal size. The right ventricular systolic function is normal. Unable to asse ss PA pressure. Atria The left atrium size is normal. The right atrium size is normal. Saline bubble contrast intravenous i njection does not demonstrate PFO. Aortic Valve Bioprosthetic aortic valve is present. No aortic regurgitation is present. Bioprosthetic aortic valve is present. Mitral Valve Mild mitral annular calcification. No evidence of mitral valve stenosis. There is no mitral valve reg urgitation noted. Tricuspid Valve The tricuspid valve is normal in structure. There is no tricuspid valve stenosis. Trace tricuspid reg urgitation. Pulmonic Valve The pulmonary valve is normal in structure. There is no pulmonic valvular stenosis. There is no pulmo shelbi valvular regurgitation. Great Vessels The aortic root is normal in size. The ascending aorta is mildly dilated. Aortic arch is not well vis ualized. IVC is normal in size and collapses >50% with inspiration. Pericardium There is no pericardial effusion. 2D Dimensions IVSD d PLAX 0.95 cm M: 0.6-1.2 LV Vol A2C d MOD 124.2 mL LVPW d PLAX 0.95 cm M: 0.6 - 1.2 LV Vol A4C d MOD 98.2 mL LVID d PLAX 4.55 cm M: 4.2 - 5.8 LA vol/ BSA A4C s A-L 30.0 mL/m2 LVDs 2.85 cm M: 2.5 - 4.0 LA Area A4C s MOD 21.86 cm2 Ao Root d 2.82 cm M: 3.1 - 3.7 LV EF A4C MOD 54.3 % Ao Asc Diam d 3.47 cm M: 2.6 - 3.4 LV EF A2C MOD 55.2 % LV EF Teichholz 67.1 % LV EF Biplane MOD 55.2 % LVEF (Reddy's) 55.21 % M: 52 - 72 SV 63.00 mL LV Volume 83.13 mL M: 62 - 150 SV Index 28.79 mL/m2 LV Volume Index 37.95 mL/m2 M: 34 - 74 LV Vol Biplane MOD 114.1 mL FS 37.05 % M-Mode TAPSE 2.53 cm (M/F) >1.7 LV Diastology MV E' medial 0.139 (>0.07 m/s) E/A Ratio 0.9 LV E/e MED 6.50 (<14) MV E Vmax 0.90 (0.4-1.3 m/s) MV E' lateral 0.168 (>0.1 m/s) MV A Vmax 1.05 (0.4-1.3 m/s) LV E/e LAT 5.35 (<14) MV E/A Ratio 0.86 MV E/E' medial 6.53 MV E/E' lateral 5.39 Aortic Valve LVOT Area 2.97 cm2 AoV Area Vmax 3.18 cm2 LVOT Vmax 1.66 m/s AoV Area/ BSA (Vmax) 1.46 cm2/m2 LVOT Mean Vimal. 1.09 m/s KHADIJAH Mean Vimal. 2.96 cm2 LVOT Peak Grad 11.0 mmHg KHADIJAH Mean Vimal. Index 1.35 cm2/m2 LVOT Mean Grad 5.6 mmHg LVOT VTI 0.254 m LVOT Diam s 1.90 cm AoV Vmax 1.55 m/s Velocity Ratio 1.07 AoV Mean Vimal. 1.10 m/s AoV Peak Grad 9.6 mmHg LVOT SV 75.45 mL AoV Mean Grad 5.4 mmHg AoV VTI 0.215 m AoV Area VTI 3.52 cm2 AoV Area/ BSA (VTI) 1.61 cm/m2 Mitral Valve MV DT 202 (160-240 msec) MV PHT 59 msec MV Area PHT 3.76 cm2 Pulmonary Valve PV Vmax 1.32 (0.5-1.5 m/s) RVOT Peak Gr. 3.02 mmHg PV Peak Grad 7.0 mmHg RVOT Mean Gr. 1.65 mmHg PV Mean Grad 3.0 mmHg RVOT VTI 0.155 m PV VTI 0.206 m RVOT Vmax 0.87 m/s
[2022-11-18] MEDS: cefTRIAXone 1 GM/50 ML BAG IVPB (14:38)
--- NOTE | 2022-11-18 16:04 | PCNE_ITS ---
Date of service: 11/18/22 Time of Service: 15:30 History of Present Illness Narrative: Mr. Pino is a 77 y/o M currently inpatient at [facility] 2/2 TIA and UTI; PMHx sig for dementia, h/o stroke, bilat carotid stenosis, DM w/neuropathy, CHF, HTN, HLD; Hospital course: presented to [facility] ED on 11/16 s/p fall vs snycope vs seizure at home, resides at H/R; ED work up conistent w/ brain TIA and UTI; CT head showed occlusion of R CA, M2, M3; MRI and ECHO today, results pending; neuro consult to day: MRI assess stroke, TTE w/bubble IF stroke, telemetry, EEG, continue DAPT w/ASA and clpidogrel, pravastatin, PT/OT/BIODIESEL PRODUCT DEVELOPMENT MANAGER consults pending; plan for discharge back to H/R tomorrow Alvarez has had a busy today, visiting w/sister most recently, ECHOs and MRI as above, neuro consult, etc; he was resting comfortable prior to visit; he states he is not interested in participating today, would prefer to continue resting; does not engage further per staff: dependent ADLs w/2 person transfer assist; pleasant; repeat falls in NH setting, slightly confused per H/R: have COLST on file, believe HCA/POA on file, will fax to PC office; reports daughter Ar is financial POA, unsure of healthcare agent Assessment and Plan Assessment and plan (1) UTI (urinary tract infection): Status: Acute Assessment and plan: cultures pending, present on admission, no systemic symptoms of infection ceftriaxone IVP daily (2) Dementia: Status: Chronic Assessment and plan: suspect vascular component given PMHx unable to assess FAST scale today (3) Brain TIA: Status: Acute Assessment and plan: MRI pending, see today's neuro consult consider TTE w/bubble if stroke confirmed, telemetry, EEG, continue DAPT PT/OT/BIODIESEL PRODUCT DEVELOPMENT MANAGER consults (4) Stenosis of right middle cerebral artery: Status: Acute Assessment and plan: long standing, previously did not want work up continue meds as above (5) MRSA colonization: Status: Acute (6) Ambulatory dysfunction: Assessment and plan: 2 person transfer assist PT/OT consults pending (7) CHF (congestive heart failure): Assessment and plan: ECHO results pending (8) Mobility impaired: (9) DNR (do not resuscitate): Status: Acute Assessment and plan: called H/R, confirmed DNR/I, requested fax COLST form (10) Lives in shelter: Status: Acute Assessment and plan: will return to H/R tomorrow (11) Palliative care encounter: Status: Acute Assessment and plan: PC will continue to follow outpatient, PRN confirm COLST and AD completion, assistance w/developing POC and goals moving forward, following lead from H/R staff (12) Weight loss: Status: Acute Assessment and plan: weight loss of 14 pounds form July noted in chart, demonstrating a 6% drop in weight continue to monitor Review of Systems Narrative: as per HPI PFSH All Active Problems (Updated 11/18/22 @ 16:15 by Dione Mcknight NP) Weight loss (Acute) Palliative care encounter (Acute) Lives in shelter (Acute) DNR (do not resuscitate) (Acute) UTI (urinary tract infection) (Acute) Stroke (Chronic) Dementia (Chronic) Nonspecific paroxysmal spell (Acute) Brain TIA (Acute) Stenosis of right middle cerebral artery (Acute) MRSA colonization (Acute) Type 2 diabetes mellitus (Chronic) Medical History Ambulatory dysfunction Anemia, mild BPH (benign prostatic hyperplasia) CAD (coronary artery disease) CHF (congestive heart failure) Diabetes Dizziness and giddiness E coli infection GERD (gastroesophageal reflux disease) HLD (hyperlipidemia) Hypercholesteremia Hyperglycemia Hypertension Memory changes Middle cerebral artery stenosis Mobility impaired Neuropathy Obesity Psoriasis Rash Sepsis secondary to UTI Tachy-sara syndrome Tinea corporis Urinary incontinence Surgical History H/O hernia repair H/O surgical procedure a. Aortic valve replacement 04/2013 b. left THR 10/04/2013 c. Left TKR 6-7 years ago Hx of CABG S/P appendectomy S/P AVR (aortic valve replacement) 04/2013 S/P knee replacement Social History Smoking/Tobacco Use Status: Former Tobacco Use Smoking risk assessment performed?: Yes Drug use: Never Substance use type: does not use Housing: shelter Do you feel safe at home: Yes Do you feel safe in your relationship?: Yes Additional Social history: [facility] Exam Narrative Exam Narrative: General: older adult male, lying in darkened room, comfortable, NAD HEENT: normocephalic, atraumatic Resp: even and unlabored, no cough or audible wheeze Psych: fatigued, answers 3 yes/no questions, denies visit, then avoids eye contact/answering questions Results Last Vital Signs Temp 97.5 F L 11/18/22 14:43 Pulse 70 11/18/22 15:19 Resp 16 11/18/22 14:43 BP 142/82 H 11/18/22 14:43 Pulse Ox 96 11/18/22 14:43 Labs 11/18/22 06:05 11/18/22 06:05 Labs: Laboratory Results - last 24 hr 11/17/22 11/17/22 11/17/22 17:32 17:32 17:32 WBC 6.20 RBC 3.63 L Hgb 12.4 L Hct 35.4 L MCV 98 H MCH 34.2 H MCHC 35.0 RDW 13.4 Plt Count 159 MPV 10.7 Immature Gran % 0.5 Neutrophils % 79.8 Lymphocytes % 15.5 Monocytes % 2.4 Eosinophils % 1.5 Basophils % 0.3 Nucleated RBC % 0.0 Absolute Neutrophils 4.95 Absolute Lymphocytes 0.96 L Absolute Monocytes 0.15 Absolute Eosinophils 0.09 Absolute Basophils 0.02 PT 10.5 INR 1.0 APTT 23.8 Sodium 137 Potassium 4.1 Chloride 100 Carbon Dioxide 26.1 Anion Gap 10.9 BUN 17 Creatinine 1.3 Est GFR (CKD-EPI 2020) 55.88 Glucose 198 H Hemoglobin A1c Calcium 8.8 Total Bilirubin 1.1 H AST 18 ALT 36 Alkaline Phosphatase 95 Creatine Kinase 51 Troponin I < 50 Total Protein 7.6 Albumin 3.6 Triglycerides Total Cholesterol LDL Cholesterol, Calc HDL Cholesterol TSH 2.56 Urine Color Urine Clarity Urine pH Ur Specific Snyder Urine Protein Urine Ketones Urine Blood Urine Nitrite Urine Bilirubin Urine Urobilinogen Ur Leukocyte Esterase Urine RBC Urine WBC Ur Epithelial Cells Urine Crystals Urine Bacteria Urine Casts Urine Mucus Ur Culture Indicated? Urine Glucose Ethyl Alcohol < 3.0 11/17/22 11/17/22 11/18/22 20:43 20:59 06:05 WBC RBC Hgb Hct MCV MCH MCHC RDW Plt Count MPV Immature Gran % Neutrophils % Lymphocytes % Monocytes % Eosinophils % Basophils % Nucleated RBC % Absolute Neutrophils Absolute Lymphocytes Absolute Monocytes Absolute Eosinophils Absolute Basophils PT INR APTT Sodium Potassium Chloride Carbon Dioxide Anion Gap BUN Creatinine Est GFR (CKD-EPI 2020) Glucose Hemoglobin A1c Calcium Total Bilirubin AST ALT Alkaline Phosphatase Creatine Kinase Troponin I < 50 Total Protein Albumin Triglycerides 53 Total Cholesterol 93 LDL Cholesterol, Calc 40 HDL Cholesterol 43 TSH Urine Color Yellow Urine Clarity Cloudy Urine pH >= 9.0 H Ur Specific Snyder 1.015 Urine Protein >=300 H Urine Ketones Trace H Urine Blood Large H Urine Nitrite Positive H Urine Bilirubin Negative Urine Urobilinogen 1.0 H Ur Leukocyte Esterase Moderate H Urine RBC 10-20 H Urine WBC 10-20 H Ur Epithelial Cells Few Urine Crystals Negative Urine Bacteria Many Urine Casts 0-2 Hyaline Urine Mucus Moderate Ur Culture Indicated? Yes Urine Glucose Negative Ethyl Alcohol 11/18/22 11/18/22 11/18/22 06:05 06:05 06:05 WBC 5.36 RBC 3.42 L Hgb 11.5 L Hct 33.6 L MCV 98 H MCH 33.6 H MCHC 34.2 RDW 13.6 Plt Count 147 MPV 10.8 Immature Gran % 0.6 Neutrophils % 83.0 Lymphocytes % 12.3 Monocytes % 2.4 Eosinophils % 1.3 Basophils % 0.4 Nucleated RBC % 0.0 Absolute Neutrophils 4.45 Absolute Lymphocytes 0.66 L Absolute Monocytes 0.13 Absolute Eosinophils 0.07 Absolute Basophils 0.02 PT INR APTT Sodium 140 Potassium 4.0 Chloride 106 Carbon Dioxide 25.8 Anion Gap 8.2 BUN 13 Creatinine 1.0 Est GFR (CKD-EPI 2020) 76.56 Glucose 171 H Hemoglobin A1c 7.2 H Calcium 8.5 Total Bilirubin AST ALT Alkaline Phosphatase Creatine Kinase Troponin I Total Protein Albumin Triglycerides Total Cholesterol LDL Cholesterol, Calc HDL Cholesterol TSH Urine Color Urine Clarity Urine pH Ur Specific Snyder Urine Protein Urine Ketones Urine Blood Urine Nitrite Urine Bilirubin Urine Urobilinogen Ur Leukocyte Esterase Urine RBC Urine WBC Ur Epithelial Cells Urine Crystals Urine Bacteria Urine Casts Urine Mucus Ur Culture Indicated? Urine Glucose Ethyl Alcohol 11/18/22 08:40 WBC RBC Hgb Hct MCV MCH MCHC RDW Plt Count MPV Immature Gran % Neutrophils % Lymphocytes % Monocytes % Eosinophils % Basophils % Nucleated RBC % Absolute Neutrophils Absolute Lymphocytes Absolute Monocytes Absolute Eosinophils Absolute Basophils PT INR APTT Sodium Potassium Chloride Carbon Dioxide Anion Gap BUN Creatinine Est GFR (CKD-EPI 2020) Glucose Hemoglobin A1c Calcium Total Bilirubin AST ALT Alkaline Phosphatase Creatine Kinase Troponin I Total Protein Albumin Triglycerides Total Cholesterol LDL Cholesterol, Calc HDL Cholesterol TSH Urine Color Dark Yellow Urine Clarity Turbid Urine pH 7.5 Ur Specific Snyder 1.015 Urine Protein 100 H Urine Ketones 40 H Urine Blood Large H Urine Nitrite Positive H Urine Bilirubin Negative Urine Urobilinogen 4.0 H Ur Leukocyte Esterase Moderate H Urine RBC >50 H Urine WBC >50 H Ur Epithelial Cells Negative Urine Crystals Negative Urine Bacteria Moderate Urine Casts Urine Mucus Negative Ur Culture Indicated? Yes Urine Glucose Negative Ethyl Alcohol
--- NOTE | 2022-11-18 17:52 | IN_ITS ---
Date of service: 11/18/22 Time of Service: 09:38 PT Notes Visit Reasons: TIA (cardiology) Physical Therapy Inpatient Initial Evaluation Date: 11/18/2022 Referring Doctor: Romaine Mayo MD PT Orders: PT CONSULT: Limited ability. TIA, left-sided weakness Precautions: Fall. On contact Precautions. Activity as tolerated. Patient Profile/Admitting Diagnosis: ON is a 77-year-old male resident of [facility] who presented to the ED due to fall resulting from questionable syncope versus seizure activity. Patient is admitted for management of brain TIA, stenosis of right MCA, MRSA colonization, type II DM. PMHX: All Active Problems? Brain TIA (Acute) Stenosis of right middle cerebral artery (Acute) MRSA colonization (Acute) Type 2 diabetes mellitus (Chronic) Medical History? Ambulatory dysfunction Anemia, mild BPH (benign prostatic hyperplasia) CAD (coronary artery disease) CHF (congestive heart failure) Diabetes Dizziness and giddiness E coli infection GERD (gastroesophageal reflux disease) HLD (hyperlipidemia) Hypercholesteremia Hyperglycemia Hypertension Memory changes Middle cerebral artery stenosis Mobility impaired Neuropathy Obesity Progressive dementia with uncertain etiology Psoriasis Rash Sepsis secondary to UTI Stroke Tachy-sara syndrome Tinea corporis Urinary incontinence Surgical History?(Updated 11/18/22 @ 06:24 by Romaine Mayo MD) H/O hernia repair H/O surgical procedure a.? Aortic valve replacement 04/2013 b.? left THR 10/04/2013 c.? Left TKR 6-7 years agoHx of CABG S/P appendectomy S/P AVR (aortic valve replacement) 4S/P knee replacement Social History/Home Situation: SNF resident. Equipment Owned/DME: FWW, wheelchair Subjective: Pleasant. Agreeable to getting out of bed and transferrring to chair. Objective: General Observation: Resting in bed. IV through R UE. Mental Status: Alert and oriented as to person. Able to follow single-step commands. No facial asymmetry noted. Minimal swelling in R UE noted. Pain: None reported Vital Signs: Closely monitored by nursing staff ROM: Right Upper Extremity: Shoulder Flexion WFL. Shoulder abduction WFL. Elbow flexion WFL. Wrist flexion WFL. Functional opening and closing of hand WFL. Left Upper Extremity: Shoulder Flexion WFL. Shoulder abduction WFL. Elbow flexion WFL. Wrist flexion WFL. Functional opening and closing of hand WFL. Right Lower Extremity: Hip flexion WFL. Hip abduction WFL. Knee flexion WFL. An kle dorsiflexion to neutral only. Ankle plantarflexion WFL. Left Lower Extremity: Hip flexion WFL. Hip abduction WFL. Knee flexion WFL. Ankle dorsiflexion to neutral only. Ankle plantarflexion WFL. Strength: Right Upper Extremity: Shoulder flexors 4/5. Shoulder abductors 4/5. Elbow flexors 5/5. Elbow extensors 5/5. Treatment Coordinator strong. Left Upper Extremity: Shoulder flexors 4/5. Shoulder abductors 4/5. Elbow flexors 5/5. Elbow extensors 5/5. Treatment Coordinator strong. Right Lower Extremity: Hip flexors 4-/5. Hip abductors 4-/5. Knee flexors 4/5. Knee extensors 4-/5. Ankle dorsiflexors 3-/5. Ankle plantarflexors 4-/5. Left Lower Extremity: Hip flexors 3+/5. Hip abductors 3+5. Knee flexors 4-/5. Knee extensors 4-/5. Ankle dorsiflexors 3-/5. Ankle plantarflexors 4-/5. Bed Mobility/Transfers: Supine to sit minimal assist with HOB at 30 degrees Sit to stand minimal assist, minimal cues needed for hand placement Stand to sit contact guard assist, minimal cues needed for hand placement Bed to reclining chair minimal assist, minimal cues needed for hand placement Gait: Instructed patient with level surface ambulation of 10 small steps feet requiring minimal assist. Decreased dorsiflexion on B sides, L more than R. Moderate cues provided for turning and backing up onto chair. Denies headache, chest pain, and lightheadedness throughout session. Balance: Static Sitting: Good Dynamic Sitting: Fair Static Standing: Fair Dynamic Standing: Fair Special Tests: Mobility Limitations Standardized Measure [facility] 6 clicks Basic Mobility Inpatient Short Form: Raw Score: 18 CMS Score: 47% deficit Rapid Alternating movement: Impaired Pronator Drift: Not observed 4-Stage Balance Test: Unable to maintain all 4 positions for 10 seconds Facial asymmetry: None observed Informed Consent/Education: Patient was instructed in purpose of PT consult and plan of care. Agreeable to proceed with established PT POC to achieve personal goals. Assessment: Patient had a bowel movement when he stood up from edge of bed. Nurse Perez and TYREL Smart assisted with pericare/clean up. Mild difference in strength in B UE/LE noted. Treatment Coordinator almost symmetrical on B sides. Movement slow, no loss of balance seen. Patient presents with clinical signs and symptoms consistent with current/admitting diagnoses that have resulted to mobility limitations, gait instability, generalized weakness, and overall ADL decline as demonstrated by the following impairment level findings: 1. Decreased strength to B UE/LE major muscle groups 2. Impaired sitting/standing balance 3. Impaired activity tolerance 4. Swelling in R UE Impairments are contributing to the following functional limitations: 1. Decline in bed mobility skills 2. Decline in transfer skills 3. Difficulty with ambulation without assistive device and physical assistance 4. Increased completion time for mobility ADL performance 5. Increased risk for falls 6. Difficulty with managing steps alone safely Patient is assessed as a 97434 moderate complexity based on the following: History: 77-year-old male with past medical history as indicated above Examination: Demonstrable impairment in strength, balance, and mobility level with underlying impairments and functional limitations as exhibited above as well as deficit score of 47% utilizing the [facility] Mobility Inpatient Short Form Presentation: Evolving Decision Makin moderate complexity Goals: Goals X1 week 1. Supine-Sit supervision 2. Sit-Supine supervision 3. Sit-Stand supervision 4. Stand-Sit supervision with FWW 5. Bed-Chair supervision with FWW 6. Chair-Bed supervision with FWW 7. Supervision with gait on level surface with use of FWW for at least 100 feet without report of pain nor dyspnea 8. Good static and dynamic standing balance/tolerance Plan of Care/Treatment Plan: 1-2x/day, 7 days/week x 1 week. Plan of care has been reviewed with the FINISH MILL OPERATOR providing the service under Physical Therapy direction. Initiate Physical Therapy intervention for pain management as needed, strengthening, bed mobility, transfers, gait, stairs, balance training, and use of assistive device. DISCHARGE RECOMMENDATIONS: [] Home with no services [] [] Home with services [specify] [] Home with outpatient PT [] [] SNF for continued rehabilitation [] [] [facility] [] [] SNF versus LTC based on ability to participate and progress [] [X] Return to SNF whenever cleared by hospitalist TREATMENT CODE/TIME: 96446 x 20 minutes (1 unit), 53705 x 10 minutes (1 unit) beginning at 9:39 AM. Thank you for the opportunity to participate in the care of this patient. Lorna Traore PT, DPT, CLT [facility] [place], [place]
[2022-11-18] MEDS: Pravastatin 20 MG TAB 80 MG PO (20:29)
[2022-11-19] VITALS (10 sets, daily range): BP systolic 123–139; BP diastolic 61–80; PULSE 64–84; RESP 16–18; TEMP 36.6–38.1; O2SAT 95–98
[2022-11-19] MEDS: Enoxaparin 40 MG/0.4 ML SYR SC (08:16)
[2022-11-19] MEDS: Nystatin POWDER 60 GM JAR TP (08:16)
[2022-11-19] MEDS: Clopidogrel 75 MG TAB PO (08:16)
[2022-11-19] MEDS: Aspirin E.C. 81 MG TABEC PO (08:16)
--- NOTE | 2022-11-19 09:30 | OT.INIE ---
Occupational Therapy Notes Inpatient Occupational Therapy Evaluation Date: 11/19/22 Referring Doctor:Genevieve Da Silva MD OT Orders: Non Urgent Precautions: Fall, contact, DNR/DNI PATIENT PROFILE/ADMITTING DIAGNOSIS: Pt is a 77 year old male who was admitted with the following dx of weight loss, palliative care encounter, UTI, stroke, dementia, Brain TIS, stenosis of (R) middle artery, MRSA colonization, Type II DM. Past Medical History: All Active Problems? Brain TIA (Acute) Stenosis of right middle cerebral artery (Acute) MRSA colonization (Acute) Type 2 diabetes mellitus (Chronic) Medical History? Ambulatory dysfunction Anemia, mild BPH (benign prostatic hyperplasia) CAD (coronary artery disease) CHF (congestive heart failure) Diabetes Dizziness and giddiness E coli infection GERD (gastroesophageal reflux disease) HLD (hyperlipidemia) Hypercholesteremia Hyperglycemia Hypertension Memory changes Middle cerebral artery stenosis Mobility impaired Neuropathy Obesity Progressive dementia with uncertain etiology Psoriasis Rash Sepsis secondary to UTI Stroke Tachy-sara syndrome Tinea corporis Urinary incontinence Surgical History?(Updated 11/18/22 @ 06:24 by Romaine Mayo MD) H/O hernia repair H/O surgical procedure a.? Aortic valve replacement 04/2013 b.? left THR 10/04/2013 c.? Left TKR 6-7 years agoHx of CABG S/P appendectomy S/P AVR (aortic valve replacement) 04/2013S/P knee replacement Social History/Home Situation: Pt states that he lives at [facility] with a roommate. He notes that his lives in an apartment without him. He states that he needs help with his ADLS but is unable to provide better baseline level of function for OT this morning. Equipment owned/DME: At [facility] all DME mets SUBJECTIVE: Pt was sitting in bed. He states that he is okay with consult because he has OT at his place of living. OBJECTIVE: General Observation: Pleasant,frank in place, IV in (L) UE Mental Status: Alert to name, able to answer questions but prolonged time for response Pain: 0/10 per pt report ROM: RUE AROM WFL L UE AROM WFL STRENGTH: RUE crime specialist strength 4-/5 LUE crime specialist strength 4-/5 *Pt was unable to initiate testing positions for other strength testing FUNCTIONAL MOBILITY/ADLS: BATHING Bathing UE Seated pt was able to wash his face and hands with mod vc throughout. DRESSING Dressing UE Donning gown as robe in seated position with mod vc, pt was able to perform with increased performance time. OT provided mod vc for task initiation and performance Dressing LE max (A) TOILETING NT EATING seated her is able to bring hand to mouth (I). Requires vc for use of utensils. Min vc for opening containers and fine motor tasks throughout. BALANCE: Static sitting Normal Dynamic Sitting Good INFORMED CONSENT/EDUCATION: Pt instructed in purpose of OT Consult and plan of care. ASSESSMENT: Patient is a 77-year-old male referred to occupational therapy services with diagnosis of weight loss, palliative care encounter, UTI, stroke, dementia, Brain TIS, stenosis of (R) middle artery, MRSA colonization, Type II DM. Patient presents with clinical signs and symptoms consistent with dx, as demonstrated by the following impairment level findings/ functional limitations: Impairments in ADL/IADL and leisure activities, decreased functional activity tolerance, decreased cognitive awareness, prolonged response time, decreased functional mobility, decreased task initiation and performance, increased performance time for ADLs. Patient is assessed as a Moderate 42046 complexity based on the following: History: see above Examination:see functional limitations as noted above Presentation: evolving Decision Making: Moderate complexity GOALS Goals x1 week 1. Grooming seated with min vc (I) 2. Dressing seated (I) UE, min (A) LE 3. Bathing seated (I) 4. Toileting on toilet (I) 5. Eating (I) PLAN OF CARE/TREATMENT PLAN: 1x/day, 5 days/ week x 1week Initiate Occupational Therapy Services for bathing, dressing, grooming, toileting, eating, transfer training. DISCHARGE RECOMMENDATIONS Return to SNF when medically cleared per MD. TREATMENT TIME/MINUTES/CODES 60158, 15 minutes [facility] [place], [place]
--- NOTE | 2022-11-19 09:48 | NUR.NOTE ---
Nursing Note: At approximately 0940 on 11/19/22, this RN answered a call from Arjessica Contreras (pt.'s daughter; on HIPAA). RN updated pt.'s daughter regarding pt.'s mentation, VS, pain level, head to toe assessment, plan of care, etc. Pt.'s daughter asking if the pt. is getting discharged today. RN informed the pt.'s daughter that they are unsure if the pt. is getting discharged today, but that there will be an updated plan of care, including what the discharge plan is, following morning meeting later on this morning. Pt.'s daughter verbalized understanding and stated that she would be in later on today to visit the pt. Pt.'s daughter then requested that she be called if anything significant changes or if the pt. gets discharged, since (per the pt.'s daughter) the pt.'s also has memory issues and gets anxious when discussing healthcare related issues. RN informed the pt.'s daughter that they would make a nursing note regarding the pt.'s daughter's request. Pt.'s daughter verbalized understanding and thanked the RN. Call then ended.
--- NOTE | 2022-11-19 14:28 | NT_ITS ---
Date of service: 11/19/22 Time of Service: 11:01 PT Notes Visit Reasons: TIA (cardiology) Patient with Radiology at 11:01, receiving hygiene care from [facility] staff at 12:40, refused at 13:32
--- NOTE | 2022-11-19 14:28 | PT.INNT ---
Date of service: 11/19/22 Time of Service: 11:01 PT Notes Visit Reasons: TIA (cardiology) Patient with Radiology at 11:01, receiving hygiene care from [facility] staff at 12:40, refused at 13:32
[2022-11-19] MEDS: Normal Saline Flush 10 ML SYR IVP (14:44)
[2022-11-19] MEDS: Normal Saline 500 ML 100 ML IV (14:47)
[2022-11-19] MEDS: cefTRIAXone 1 GM/50 ML BAG IVPB (14:48)
--- NOTE | 2022-11-19 14:51 | PT.INTREAT ---
Date of service: 11/19/22 Time of Service: 14:40 PT Notes Visit Reasons: TIA (cardiology) Inpatient Physical Therapy Treatment Note [facility] Date: 11/19/22 PRECAUTIONS: Fall, ELKE alarm in place, standard, IV access in B UE, Andres catheter in place, activity as tolerated. SUBJECTIVE: Patient seems agreeable, confused. Sitting up in recliner with feet elevated. OBJECTIVE: PAIN: none reported BED MOBILITY/TRANSFERS Sit-stand: min assist x2, max verbal and tactile cueing Stand-sit: mod assist x2, max verbal and tactile cueing Bed-Chair: mod assist x2 Chair-bed: mod assist x2 GAIT Assistive Device: FWW Weight bearing: full Assist: max assist of one for safety. Recommend wheelchair follow. Patient attempts to sit with no chair behind him. Max verbal and tactile cues to maintain forward momentum, as well as a safe return to seat. Distance: 4 feet Deviation: extreme reduced step height, length, and elizabeth, difficulty managing FWW, seemed to lose his train of thought between steps. Minimize additional visual and auditory distractions. THERACT: transfer training, bed mobility training, safe sit training (scooting back in chair) pre gait activities. ASSESSMENT: Patient was steady on his feet until he decided to sit. Could probably ambulate further distances safely, provided that he was intrinsically motivated to do so. PLAN: Continue global progression of plan of care until patient is medically ready to discharge back to the SNF. TREATMENT CODE/TIME: 77563 Ther Act 19 minutes beginning at 14:30
--- NOTE | 2022-11-19 16:09 | PDOC.CMPRO ---
Date of service: 11/19/22 Time of Service: 16:09 Care Management Progress Note Progress Note Text Progress Note Text: S/O: Alvarez was sitting up in his chair when CM met with him. He stated that he is feeling ok today. Per report, he had an EEG this morning, and is awaiting a neurology consultation. CM reviewed his plan, which is to return to [facility] once medically cleared. He is agreeable to this plan. CM contacted admissions at [facility], anticipating possible discharge tomorrow. CM will continue to follow. A: Alvarez is a 77 year old male admitted to [facility] on 11/17/22 with TIA. P: Anticipate Alvarez will return to [facility] once medically cleared. He will transport via facility w/c, coordinated by ISAIAH. He will follow up with facility providers and his discharge plan of care. CM will continue to follow.
--- NOTE | 2022-11-19 16:11 | PDOC.EEG ---
Neurology EEG EEG: [facility] Department of Neurology INPATIENT EEG REPORT Date of Recordin11/19/22 Interpreting Physician: Dr. Amita Valentine Reason for study: Mr. Farmer is a 77 year-old with dementia and prior strokes admitted after a possible seizure event. Current Medications: Current Medications Acetaminophen (Acetaminophen 325 Mg Tab) 0 mg PO Q4H PRN PRN Al Hydrox/Mg Hydrox/Simethicone (Mylanta Suspension 30 Ml Cup) 30 ml PO Q2H PRN PRN Aspirin (Aspirin E.C. 81 Mg Tabec) 81 mg PO DAILY [facility] Last Admin: 11/19/22 08:16 Dose: 81 mg Clopidogrel Bisulfate (Clopidogrel 75 Mg Tab) 75 mg PO DAILY [facility] Last Admin: 11/19/22 08:16 Dose: 75 mg Dimethicone/Zinc Oxide (Oyn Protect Cream 142 Gm Tube) 0 gm TP PRN PRN Docusate Sodium (Docusate Sodium 100 Mg Cap) 100 mg PO TID PRN PRN Enoxaparin Sodium (Enoxaparin 40 Mg/0.4 Ml Syr) 40 mg SC DAILY [facility] Last Admin: 11/19/22 08:16 Dose: 40 mg Famotidine (Famotidine 20 Mg Tab) 20 mg PO BID PRN PRN Ceftriaxone Sodium/Dextrose (Rocephin) 1 gm in 50 mls @ 100 mls/hr IVPB Q24H [facility] Last Infusion: 11/19/22 15:18 Dose: Infused Sodium Chloride (Saline 500ml Bag) 500 mls @ 0 mls/hr IV PRN PRN Last Infusion: 11/19/22 15:18 Dose: 100 mls/hr Magnesium Hydroxide (Milk Of Magnesia 30 Ml Cup) 30 ml PO DAILY PRN PRN Metformin HCl (Metformin 500 Mg Tab) 1,000 mg PO BID@0800,1700 [facility] Nitroglycerin (Nitroglycerin 0.4 Mg Tab) 0.4 mg SL PRN PRN Nystatin (Nystatin Powder 60 Gm Jar) 60 gm TP BID [facility] Last Admin: 11/19/22 08:16 Dose: 1 applic Polyethylene Glycol (Polyethylene Glycol 3350 17 Gm Packet) 17 gm PO DAILY PRN PRN PRN Reason: Constipation Pravastatin Sodium (Pravastatin 20 Mg Tab) 80 mg PO QPM [facility] Last Admin: 11/18/22 20:29 Dose: 80 mg Sodium Chloride (Normal Saline Flush 10 Ml Syr) 0 ml IVP PRN PRN Last Admin: 11/19/22 14:44 Dose: 10 ml METHODS: A 21 channel digitized electroencephalogram was performed in the [facility] Med/Surg Floor or ICU. The 10/20 international system of electrode placement was used and bipolar and referential electrode montages were recorded. In addition to EEG the patient was monitored for EKG and lateral/vertical eye movements. Activation procedures of photic stimulation and hyperventilation were performed if applicable. Video was used during activation procedures and during events where applicable. The duration of the recording was 30 minutes. DESCRIPTION OF EEG: The patient was noted to be awake, drowsy, and asleep during the recording. During maximal wakefulness a 7-Hz posterior background rhythm was present which was poorly-modulated, symmetrical, reactive to eye opening, and of moderate voltage. With eye opening the background activity changed to a low voltage mixture of alpha, beta, and occasional theta range frequencies. Faster frequencies were present in the bilateral anterior head regions. There was a normal anterior-posterior voltage gradient. During drowsiness, there was attenuation of the posterior dominant background rhythm and vertex waves. Stage II sleep was present with symmetrical sleep spindles, K-complexes, and vertex waves. There was generalized, moderate-amplitude, polymorphic theta > delta slowing throughout wakefulness. At times, there appearred to be triphasic-like waves, but these were never definitive or sustained. Activating Procedures: Photic stimulation was performed which produced no posterior driving response. Hyperventilation was not performed. EKG: EKG revealed normal sinus rhythm. INTERPRETATION: This EEG is abnormal due to generalized, polymorhic slowing. PRIOR EEG: none CLINICAL CORRELATION: The background slowing is suggestive of a mild-moderate diffuse cerebral encephalopathy of broad differential including toxic-metabolic etiology. No focal regions of cerebral dysfunction or epileptiform activity was present. Clinical correlation is advised. Amita Valentine MD
--- NOTE | 2022-11-19 16:16 | PGE_ITS ---
Date of Service Date of service: 11/19/22 Time of Service: 16:20 Assessment and Plan Assessment and plan (1) Nonspecific paroxysmal spell: Status: Acute (2) Dementia: Status: Chronic (3) Stroke: Status: Chronic Assessment and plan: Mr. Farmer presents s/p ?fall vs ?syncope vs ?seizure with subsequent transient L hemiparesis complicated by baseline dementia and prior strokes. MRI imaging showed a small L frontal cortical infarct, that would not explain his presenting symptoms. Further vascular work-up significant for L vertebral occlusion, R MCA distal branch narrowing but no obvious explanation for current stroke. Continue plan as below. He otherwise seems to have a delirium, supported by EEG findings, from his UTI and complicated by his vascular dementia. Work-up: -30 day cardiac monitoring at discharge Medications: -continue DAPT aspirin 81mg + clopidogrel 75mg daily for secondary stroke prevention x30 days and then stop aspirin and continue clopidogrel alone -ok to reduce statin to home dose -no need to start a seizure medication at this time, as unclear if he had a seizure or not and EEG with no epileptiform activity He should f/up in neurology clinic in 4-6 weeks for follow-up. Subjective Subjective Interval history since last seen: Daughter at bedside today. She notes he is much more confused than he has been in the last 2 days. He is quite fatigued. does have UTI for which he is being treated. Notes his LE edema is much improved since his stay here. Alvarez says he is doing fine and doesn't have any conerns. Daughter notes stable memory in the last year - no obvious decline. I reviewed his study results with her form his stay. -TTE (11/18/22): ER 55%, no wall motion abnormalities. LA normal. No PFO. -Labs (11/18/22): A1c 7.2, LDL 40 -EEG (11/19/22): c/w moderate encephalopathy. No epileptiform activity. Exam Narrative Exam Narrative: Physical Exam: Constitutional: Patient of apparent stated age, well nourished, well developed, no acute distress - sleeping, but easily arousable Ext: Compression stockings to knees in place on LE. Neuro: MS/Language/Speech: Alert, oriented to self only, clear language (fluency and comprehension), no dysarthria Motor: Normal bulk and tone. FMM intact, no pronator drift. 5/5 strength in bilateral upper extremities. LE remain weak. today weaker on the left 3-/5 L hip flexor and 4/5 R hip flexor. Coordination: Finger to nose performed without dysmetria Objective Last Vital Signs Temp 99.3 F 11/19/22 15:30 Pulse 72 11/19/22 15:30 Resp 18 11/19/22 15:30 BP 128/74 11/19/22 15:30 Pulse Ox 98 11/19/22 15:30 PAWSS Pt Consumed Any Amount of Alcohol Within the Last 30 days OR had positive JUAN FRANCISCO Upon Admission: No Time Spent with Patient Time Spent with Patient: 35-49 minutes Time was spent: preparing to see the patient(eg.review tests), obtaining and/or reviewing separately otained hiistory, referring, communicating with other health director of patient care and counseling the patient
[2022-11-19] MEDS: metFORMIN 500 MG TAB 1000 MG PO (16:39)
--- NOTE | 2022-11-19 17:47 | PGE_ITS ---
Date of Service Date of service: 11/19/22 Time of Service: 17:47 Assessment and Plan Assessment and plan (1) Brain TIA: Status: Acute Assessment and plan: left-sided weakness resolved Continue Plavix 75 mg daily and aspirin [address] Valentine was consulted from neurology. 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 (3) MRSA colonization: Status: Acute Assessment and plan: Chronically MRSA positive. Using proper precautions. (4) Type 2 diabetes mellitus: Status: Chronic Assessment and plan: On metformin Subjective Subjective Patient reports: no new complaints and tolerating liquids well; denies diarrhea, vomiting or fever Exam Narrative Exam Narrative: GEN: Alert and oriented to self. No acute distress at rest appears comfortable HEENT: Head atraumatic. Conjunctiva clear, no icterus. PERRL, EOMI. no rhinorrhea. MMM, Neck is supple with no masses or lymphadenopathy, trachea midline LUNGS: CTAB with normal effort CV: RRR with 1/6 systolic murmur. no gallops, or rubs. ABD: +BS, softly distended, 7 cm umbilical hernia. No tenderness EXT: no cyanosis, clubbing. Trace schwarz with some non pitting bilateral lower extremity edema MSK: No joint redness or swelling NEURO: CN 2-12 grossly intact. Normal movement of 4 extremities. Normal speech and coordination. course tremor with using hands SKIN: No rashes or open wounds, some splotchy red patches where skin irritated. PSYCH: normal mood and affect Psych Mental Status: mental status grossly normal (baseline) Speech and Movement: speech and movement normal Mood: congruent mood Affect: normal affect Objective Last Vital Signs Temp 37.4 C 11/19/22 15:30 Pulse 72 11/19/22 15:30 Resp 18 11/19/22 15:30 BP 128/74 11/19/22 15:30 Pulse Ox 98 11/19/22 15:30 PAWSS Pt Consumed Any Amount of Alcohol Within the Last 30 days OR had positive JUAN FRANCISCO Upon Admission: No Time Spent with Patient Time Spent with Patient: 35-49 minutes Time was spent: preparing to see the patient(eg.review tests), ordering medications,tests, procedures, referring, communicating with other health wound care technician, indepentently interpreting results and care coordination
[2022-11-19] MEDS: Pravastatin 20 MG TAB 80 MG PO (19:15)
[2022-11-19] MEDS: Acetaminophen 325 MG TAB PO (19:16)
--- NOTE | 2022-11-20 | DI.US_ITS ---
Exam(s) US RENAL EXAM: US RENAL CLINICAL HISTORY: UTI TECHNIQUE: Ultrasound of both kidneys performed using standard protocol. COMPARISON: No exams were available for comparison FINDINGS: RIGHT KIDNEY: Measures 10.6 cm in length. No cysts evident. Normal cortical thickness and corticomedullary differen tiation .No solid masses No intrarenal calculi nor hydronephrosis. LEFT KIDNEY: Measures 10.7 cm in length. No cysts evident. Normal cortical thickness and corticomedullary differe ntiaion. No solids masses. No intrarenal calculi nor hydonephrosis. URINARY BLADDER: Prevoid volume is 131 cc Postvoid volume is 0 cc There appears to be a Andres catheter balloon in the urinary bladder. Ureterovesical jets: Both identified. Prostate gland: Enlarged. Measures 5.7 x 4 by 4.5; for prostate volume 53 mL. IMPRESSION: 1. Kidneys appear age-appropriate. No hydronephrosis. No significant renal lesions evident. 2. Balloon catheter noted in the urinary bladder. DATA REPOSITORY:
--- NOTE | 2022-11-20 00:03 | NUR.NOTE ---
Neuro check pt oriented to self only. when asked name and birthday he only reports his whole name correctly. 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 can stick tongue out midline, and raise eyebrows. He seems drowsy at this time. vital signs documented. Nursing Note:
[2022-11-20] MEDS: Normal Saline Flush 10 ML SYR IVP (02:42)
[2022-11-20 03:28] VITALS: BP 120/70; PULSE 72; RESP 16; TEMP 36.1; O2SAT 97
--- NOTE | 2022-11-20 04:49 | NUR.NOTE ---
Neuro Check Pt able to tell me his full name, when asked what state we are in, he reports i hope im still in [place]. when asked what year it is, he reports 2021. pt able to oracle developer hands, equally upon command. and at this time, he is able to hold both his arms out in front of him equally. with no arm drift. He is able to stick his tongue out midline, he will not shrug his shoulders upon command. he is able to lift his eyebrows. he is requesting cranberry juice and to watch the news. Nursing Note:
--- NOTE | 2022-11-20 06:11 | NUR.NOTE ---
Pt rounding note: Upon routine rounding, and changing of pts telemetry battery. pt reports he can feel his frank catheter. upon examination of his tubing ensuring it is, not kinked. tubing still in thigh strap. However, red tamper evidence seal is broken and tubing not attached to Frank drainage site. At that time i re-attached the bag, to frank tubing insertion site. there was a small amount of urine on the patients, gown. the patients gown was then changed. a search of the patients bed does not reveal the location of where the red evidence seal ended up.pt remains lying comfortably in bed. Nursing Note:
[2022-11-20 07:00] VITALS: PULSE 64
[2022-11-20 07:43] VITALS: BP 121/66; PULSE 66; RESP 18; TEMP 36.8; O2SAT 96
[2022-11-20] MEDS: metFORMIN 500 MG TAB 1000 MG PO (09:12)
[2022-11-20] MEDS: Clopidogrel 75 MG TAB PO (09:12)
[2022-11-20] MEDS: Enoxaparin 40 MG/0.4 ML SYR SC (09:13)
[2022-11-20] MEDS: Aspirin E.C. 81 MG TABEC PO (09:13)
[2022-11-20] MEDS: Nystatin POWDER 60 GM JAR TP (09:16)
--- NOTE | 2022-11-20 10:35 | PT.INTREAT ---
Date of service: 11/20/22 Time of Service: 10:35 PT Notes Visit Reasons: TIA (cardiology) Inpatient Physical Therapy Treatment Note [facility] Date: 11/20/22 PRECAUTIONS: Fall, standard, activity as tolerated, Andres catheter in place, ELKE alarm in place. SUBJECTIVE: Patient reports feeling not great, does not understand why he is here, wants the catheter out, feels like he needs to urinate. Sitting up in chair, agreeable to therapy. OBJECTIVE: ? PAIN: none reported ? BED MOBILITY/TRANSFERS? Sit-stand: min assist. No verbal cue required for hand placement. No verbal or tactile cue needed to scoot forward and get feet on floor. ? Stand-sit: min assist. Verbal cue for hand placement.? Bed-Chair: CGA. Verbal cue to sit back far enough to be safe in chair.? GAIT? Assistive Device: FWW, gait belt. ? Weight bearing: full Assist: CGA-min assist, with verbal cues to keep patient on task.? Distance:? 25 feet ? Deviation: extreme shortened step length, reduced step height, stiff posture.? VITALS:? Monitored by nursing staff. ASSESSMENT:? Patient seems clearer today. Better able to follow single step directions. Unclear whether this is due to improving medical status or reduced distractions during today's treatment vs yesterdays. ELKE alarm reactivated. PLAN: continue global strengthening per plan of care until patient is medically cleared to return to SNF TREATMENT CODE/TIME: 67864 Gait 14 minutes beginning at 10:34 CC:
[2022-11-20 11:18] VITALS: BP 136/82; PULSE 62; RESP 18; TEMP 36.3; O2SAT 96
--- NOTE | 2022-11-20 13:01 | W.PM.DS.N ---
Date of service: 11/20/22 Time of Service: 13:01 DS: Diagnosis Discharge Diagnosis (1) Nonspecific paroxysmal spell: Status: Acute (2) Dementia: Status: Chronic (3) Stroke: Status: Chronic Discharge Plan Disposition [facility] Disposition[facility] Condition: Stable Condition: Fair Discharge Details Reason For Visit: TIA Admit Date/Time: 11/17/22 19:50 Admit Provider: Romaine Mayo Attending Provider: Romaine Mayo Primary Care Provider: Sony Simmons Hospital Course Hospital Course: This is a 77 year old male patient from the [facility] that came to the [facility] ED on 11/10/2022 after having a fall and being confused. There is some question if the fall was precipitated by syncope or a seizure. It was noted at that time that he had some left-sided weakness. He had no fractures or wounds from the fall. He did have a CTA of the head that showed a right MCA M2 M3 occlusion and mild bilateral carotid stenosis and mild right vertebral artery stenosis. [facility] neurolog[place] consulted and pateint was admitted to the hospital. He was started on dual antiplatelet therapy, aspirin and Plavix. He was seen by [facility] neurology. MRI per neurology interpretation MRI imaging showed a small L frontal cortical infarct, that would not explain his presenting symptoms.? Further vascular work-up significant for L vertebral occlusion, R MCA distal branch narrowing but no obvious explanation for current stroke. EEG findings support delerium. Neurology recommendation: aspirin 81mg + clopidogrel 75mg daily for secondary stroke prevention x30 days and then stop aspirin and continue clopidogrel alone, ok to reduce statin to home dose - Atorvastatin 40 mg at bedtime - no need to start a seizure medication at this time, as unclear if he had a seizure or not and EEG with no epileptiform activity. He should f/up in neurology clinic in 4-6 weeks for follow-up. ECG normal sinus rhythm. Echocardiogram showed EF of 55% with normal wall motion. CXR no acute findings. During his hospitalization he was found to have a UTI which could have precipitated this event. He was treated with Ceftriaxone IV. Urine culture positive for Proteius mirabilis. He is being discharged with instructions to take a one time dose of Fosfomycin 3 gm on 11/23/2022. Home Meds and New Rx's Prescriptions: New clopidogrel 75 mg Tablet 75 mg PO DAILY Qty: 0 0RF fosfomycin tromethamine [Monurol] 3 gram packet 3 g PO ONCE Qty: 1 0RF Rx Instructions: Take on 11/23/2022 Continued multivitamin Tablet 1 tab PO DAILY bisacodyl 10 mg suppository 10 mg MT DAILY PRN Patient Comments: not on med list Fleet Enema Extra 19-7 gram/197 mL enema 118 ml MT ONCE PRN Patient Comments: not on med list glucagon 1 mg kit See Rx Instructions IM .COMPLEX Patient Comments: not on med list Rx Instructions: intramuscularly; dextrose [Glucose Gel] 40 % gel 15 g PO Q15M PRN Patient Comments: not on med list Rx Instructions: until symptoms of low blood sugar are controlled magnesium hydroxide 400 mg/5 mL suspension 30 ml PO DAILY PRN Patient Comments: not on med list atorvastatin 40 mg tablet 40 mg PO QHS Patient Comments: not on med list clotrimazole 1 % cream 1 applic topical BID PRN Patient Comments: not on med list aspirin 81 mg tablet,delayed release (DR/EC) 81 mg PO DAILY Patient Comments: not on med list acetaminophen [Acetaminophen Extra Strength] 500 MG tablet 500 mg PO TID PRN Patient Comments: not on med list magnesium oxide 400 mg (241.3 mg magnesium) Tablet 400 mg PO BID Qty: 0 0RF Patient Comments: not on med list metformin 1,000 mg Tablet 1,000 mg PO BIDWMEAL nitroglycerin 0.4 mg Tablet, Sublingual 0.4 mg sublingual PRN PRN Discharge Instructions Additional Instructions: Fosfomycin 3 gm one time dose on 11/23/2022 Stand Alone Forms: Nursing Discharge Form Referrals: Sony Simmons [Primary Care Provider] - (Follow up per health an Rehab) Activity:: Activity as Tolerated Equipment/Supplies:: No Equipment Needed Diet:: Low Sodium Discharge Orders Discharge Orders: Discharge Order (Routine); Ordered 11/20/22 Ordered By: Korin Calloway Discharge Data Discharge Date/Time-TO BE ENTERED AT DEPARTURE: 11/20/22 15:20 DS: Summary Time Spent with Patient providing and/or coordinating discharge services: Greater than 30 minutes Status at Discharge Functional status at discharge: wheelchair bound Overall status at discharge: patient is progressing back to baseline Mental Status: mental status grossly normal (baseline) Speech and Movement: speech and movement normal Mood: congruent mood Affect: normal affect Exam Narrative Exam Narrative: GEN: Alert and oriented to self. No acute distress at rest appears comfortable HEENT: Head atraumatic. Conjunctiva clear, no icterus. PERRL, EOMI. no rhinorrhea. MMM, Neck is supple with no masses or lymphadenopathy, trachea midline LUNGS: CTAB with normal effort CV: RRR with 1/6 systolic murmur. no gallops, or rubs. ABD: +BS, softly distended, 7 cm umbilical hernia. No tenderness EXT: no cyanosis, clubbing. Trace schwarz with some non pitting bilateral lower extremity edema MSK: No joint redness or swelling NEURO: CN 2-12 grossly intact. Normal movement of 4 extremities. Normal speech and coordination. course tremor with using hands SKIN: No rashes or open wounds, some splotchy red patches where skin irritated. PSYCH: normal mood and affect Psych Mental Status: mental status grossly normal (baseline) Speech and Movement: speech and movement normal Mood: congruent mood Affect: normal affect DS: Data Vitals/I&O Vitals and I&O: Vital Signs Temperature 36.3 C L 11/20/22 11:18 Temperature Source Tympanic 11/20/22 11:18 Pulse 62 11/20/22 11:18 Pulse Rhythm Irregular 11/20/22 09:24 Pulse 75 11/17/22 20:45 Respiratory Rate 18 11/20/22 11:18 Respiratory Effort Normal 11/20/22 09:24 Respiratory Depth Normal 11/20/22 09:24 Respiratory Pattern Normal 11/20/22 09:24 Blood Pressure 136/82 11/20/22 11:18 Blood Pressure Mean 82 11/17/22 20:45 Pulse Oximetry 96 11/20/22 11:18 Oxygen Delivery Method Room Air 11/20/22 11:18 Oxygen Flow Rate 0 11/20/22 11:18 Pain Level 0 11/20/22 11:18 Comment Pt. denies pain at this time. 11/19/22 11:03 Intake & Output 11/19/22 11/20/22 11/20/22 23:59 11:59 23:59 Intake Total 430.000 / 790.000 600 / 600 Output Total 925 / 2000 300 / 300 Balance -495.000 / -1210.000 300 / 300 Weight 104.6 kg Intake: IV 190.000 / 190.000 Oral 240 / 600 600 / 600 Output: Urine 925 / 2000 300 / 300 Other: Urine Color Pale Yellow Yellow Urine Appearance Clear Clear Comment frank catheter/toribio care done with purple wipes PFSH All Active Problems (Updated 11/18/22 @ 16:15 by Dione Mcknight NP) Weight loss (Acute) Palliative care encounter (Acute) Lives in detention (Acute) DNR (do not resuscitate) (Acute) UTI (urinary tract infection) (Acute) Stroke (Chronic) Dementia (Chronic) Nonspecific paroxysmal spell (Acute) Brain TIA (Acute) Stenosis of right middle cerebral artery (Acute) MRSA colonization (Acute) Type 2 diabetes mellitus (Chronic) Medical History Ambulatory dysfunction Anemia, mild BPH (benign prostatic hyperplasia) CAD (coronary artery disease) CHF (congestive heart failure) Diabetes Dizziness and giddiness E coli infection GERD (gastroesophageal reflux disease) HLD (hyperlipidemia) Hypercholesteremia Hyperglycemia Hypertension Memory changes Middle cerebral artery stenosis Mobility impaired Neuropathy Obesity Psoriasis Rash Sepsis secondary to UTI Tachy-sara syndrome Tinea corporis Urinary incontinence Surgical History H/O hernia repair H/O surgical procedure a. Aortic valve replacement 04/2013 b. left THR 10/04/2013 c. Left TKR 6-7 years ago Hx of CABG S/P appendectomy S/P AVR (aortic valve replacement) 04/2013 S/P knee replacement Social History Smoking/Tobacco Use Status: Former Tobacco Use Smoking risk assessment performed?: Yes Drug use: Never Substance use type: does not use Housing: detention Do you feel safe at home: Yes Do you feel safe in your relationship?: Yes Additional Social history: Current resident of [facility] Time Spent with Patient Time Spent with Patient: 45-69 minutes Time was spent: preparing to see the patient(eg.review tests), ordering medications,tests, procedures, referring, communicating with other health healthcare educator, indepentently interpreting results, counseling the patient and care coordination
--- NOTE | 2022-11-20 14:29 | CMDISCH_ITS ---
Date of service: 11/20/22 Time of Service: 14:29 LACE Index Scoring Tool Questions: Length of Stay (in days): 3 Was the patient admitted via the E.D.?: Yes Comorbidities: Cerebrovascular Disease, Diabetes w/o Complication and Dementia E.D. Visits: 1 Answers: Total Score: 12 Risk of Readmission: High Risk Care Management Discharge Plan Reason for Hospitalization: TIA Discharge Plan: Alvarez will return to [facility] today, where he resides. He will transport via facility w/c van, coordinated by CM. He will follow up with facility providers and his discharge plan of care. He is happy to be returning to [facility]. Patient/Family Education Needs: Review discharge instructions and limitations, discussion of self care needs including ask me three. Services Needed at Discharge: [facility] Facility ([facility]) and Transportation (facility w/c van)
[2022-11-20] MEDS: Fosfomycin Tromethamine 3 GM PACKET PO (15:09)
--- NOTE | 2022-11-20 16:08 | PT.INDS ---
Date of service: 11/20/22 PT Notes Visit Reasons: TIA (cardiology) Physical Therapy Inpatient Discharge Summary Date: 11/20/2022 Dates of service: 11/18/2022 through11/20/2022 This is a clinical summary of care provided for the duration of dates listed above. No charge was made in the completion of this documentation. Referring Doctor: Romaine Mayo MD PT Orders: PT CONSULT: Limited ability.? TIA, left-sided weakness Precautions: Fall.?On?contact Precautions. Activity as tolerated. Patient Profile/Admitting Diagnosis:Mansoor Pino is a 77-year-old male resident of [facility] who presented to the ED due to fall resulting from questionable syncope versus seizure activity.? Patient is admitted for management of brain TIA, stenosis of right MCA, MRSA colonization,? type II DM. PMHX: All Active Problems? Brain TIA (Acute) Stenosis of right middle cerebral artery (Acute) MRSA colonization (Acute) Type 2 diabetes mellitus (Chronic) Medical History? Ambulatory dysfunction Anemia, mild BPH (benign prostatic hyperplasia) CAD (coronary artery disease) CHF (congestive heart failure) Diabetes Dizziness and giddiness E coli infection GERD (gastroesophageal reflux disease) HLD (hyperlipidemia) Hypercholesteremia Hyperglycemia Hypertension Memory changes Middle cerebral artery stenosis Mobility impaired Neuropathy Obesity Progressive dementia with uncertain etiology Psoriasis Rash Sepsis secondary to UTI Stroke Tachy-sara syndrome Tinea corporis Urinary incontinence Surgical History?(Updated 11/18/22 @ 06:24 by Romaine Mayo MD) H/O hernia repair H/O surgical procedure a.? Aortic valve replacement 04/2013 b.? left THR 10/04/2013 c.? Left TKR 6-7 years agoHx of CABG S/P appendectomy S/P AVR (aortic valve replacement) 4S/P knee replacement Social History/Home Situation: SNF resident. Equipment Owned/DME: FWW,? wheelchair Subjective: NT. See most recent TODDLER NANNY notes. Objective: General Observation: NT. See most recent TODDLER NANNY notes. Mental Status: NT. See most recent TODDLER NANNY notes. Pain: NT. See most recent TODDLER NANNY notes. Vital Signs: NT. See most recent TODDLER NANNY notes. ROM: Right Upper Extremity: ? Shoulder Flexion WFL. Shoulder abduction WFL. Elbow flexion WFL. Wrist flexion WFL. Functional opening and closing of hand WFL. Left Upper Extremity:? Shoulder Flexion WFL. Shoulder abduction WFL. Elbow flexion WFL. Wrist flexion WFL. Functional opening and closing of hand WFL. Right Lower Extremity: Hip flexion WFL. Hip abduction WFL. Knee flexion WFL. Ankle dorsiflexion to neutral only. Ankle plantarflexion WFL. Left Lower Extremity: Hip flexion WFL. Hip abduction WFL. Knee flexion WFL. Ankle dorsiflexion to neutral only. Ankle plantarflexion WFL. Strength: Right Upper Extremity: Shoulder flexors 4/5. Shoulder abductors 4/5. Elbow flexors 5/5. Elbow extensors 5/5. Ropeman strong. Left Upper Extremity: Shoulder flexors 4/5. Shoulder abductors 4/5. Elbow flexors 5/5. Elbow extensors 5/5. Ropeman strong. Right Lower Extremity: Hip flexors 4-/5. Hip abductors 4-/5. Knee flexors 4/5. Knee extensors 4-/5. Ankle dorsiflexors 3-/5. Ankle plantarflexors 4-/5. Left Lower Extremity: Hip flexors 3+/5. Hip abductors 3+5. Knee flexors 4-/5. Knee extensors 4-/5. Ankle dorsiflexors 3-/5. Ankle plantarflexors 4-/5. ? BED MOBILITY/TRANSFERS? Sit-stand: min assist x2, max verbal and tactile cueing? Stand-sit: mod assist x2, max verbal and tactile cueing ? Bed-Chair: mod assist x2 ? Chair-bed: mod assist x2 ? GAIT? Assistive Device: FWW? Weight bearing: full Assist: max assist of one for safety. Recommend wheelchair follow. Patient attempts to sit with no chair behind him. Max verbal and tactile cues to maintain forward momentum, as well as a safe return to seat. ? Distance:? 4 feet? Deviation: extreme reduced step height, length, and elizabeth, difficulty managing FWW, seemed to lose his train of thought between steps. Minimize additional visual and auditory distractions.? Balance: Static Sitting: Good Dynamic Sitting: Fair Static Standing: Fair Dynamic Standing: Fair Rapid Alternating movement: Impaired Pronator Drift:? Not observed 4-Stage Balance Test: Unable to maintain all 4 positions for 10 seconds Facial asymmetry: None observed Assessment: Requires assist of 2 for all mobility ADL performance as patient has not shown consistent safe sit<>stand transfers while on admission. Will continue to need PT services at SNF. Patient presents with clinical signs and symptoms consistent with current/admitting diagnoses that have resulted to mobility limitations, gait instability, generalized weakness, and overall ADL decline as demonstrated by the following impairment level findings: 1.? Decreased strength to B UE/LE major muscle groups 2.? Impaired sitting/standing balance 3.? Impaired activity tolerance 4.? Swelling in R UE Impairments are contributing to the following functional limitations: 1.? Decline in bed mobility skills 2.? Decline in transfer skills 3.? Difficulty with ambulation without assistive device and physical assistance 4.? Increased completion time for mobility ADL performance 5.? Increased risk for falls 6.? Difficulty with managing steps alone safely Goals: Goals X1 week 1. Supine-Sit supervision NOT MET 2. Sit-Supine supervision NOT MET 3. Sit-Stand supervision NOT MET 4. Stand-Sit supervision with FWW NOT MET 5. Bed-Chair supervision with FWW NOT MET 6. Chair-Bed supervision with FWW NOT MET 7. Supervision with gait on level surface with use of FWW for at least 100 feet without report of pain nor dyspnea NOT MET 8. Good static and dynamic standing balance/tolerance NOT MET DISCHARGE RECOMMENDATIONS: [] ? Home with no services [] [] ? Home with services [specify] [] ? Home with outpatient PT [] [] ? SNF for continued rehabilitation [] [] ? [facility] [] [] ? SNF versus LTC based on ability to participate and progress [] [X] ? Return to SNF whenever cleared by hospitalist TREATMENT CODE/TIME: NC Thank you for the opportunity to participate in the care of this patient. Lorna Traore PT, DPT, CLT [facility] [place], [place]
--- NOTE | 2022-11-21 08:29 | OT.INDS ---
Occupational Therapy Notes Occupational Therapy Discharge Summary Date: 11/21/22 Dates of Service: 11/19/22 PRECAUTIONS: Fall, Standard, Full Pt was seen for OT consult only. He was medically cleared and discharged to SNF on 11/20/22. Plan: Discharge from OT. TREATMENT CODES/TIME: N/A Kaylene Grubbs OTR/L
== END 2022-11-20 15:20 | disposition skilled nursing facility (03) ==
LOC: ER 19:45 → MS 21:06
PROVIDERS: Internal Medicine; Admitting Provider Family Medicine; Emergency Provider Emergency Medicine; PCP Family Medicine; Visit Provider Family Medicine
DX: I63.81 Other cerebral infarction due to occlusion or stenosis of small artery (principal); N39.0 Urinary tract infection, site not specified; I66.01 Occlusion and stenosis of right middle cerebral artery; Z79.84 Long term (current) use of oral hypoglycemic drugs; Z22.322 Carrier or suspected carrier of Methicillin resistant Staphylococcus aureus; Z95.2 Presence of prosthetic heart valve; G81.94 Hemiplegia, unspecified affecting left nondominant side; I11.0 Hypertensive heart disease with heart failure; I50.9 Heart failure, unspecified; D64.9 Anemia, unspecified; N40.0 Benign prostatic hyperplasia without lower urinary tract symptoms; I25.10 Atherosclerotic heart disease of native coronary artery without angina pectoris; R42 Dizziness and giddiness; K21.9 Gastro-esophageal reflux disease without esophagitis; E78.00 Pure hypercholesterolemia, unspecified; E66.9 Obesity, unspecified; Z68.33 Body mass index [BMI] 33.0-33.9, adult; R32 Unspecified urinary incontinence; L40.9 Psoriasis, unspecified; F03.90 Unspecified dementia, unspecified severity, without behavioral disturbance, psychotic disturbance, mood disturbance, and anxiety; E11.40 Type 2 diabetes mellitus with diabetic neuropathy, unspecified; Z95.1 Presence of aortocoronary bypass graft; Z87.891 Personal history of nicotine dependence; Z86.73 Personal history of transient ischemic attack (TIA), and cerebral infarction without residual deficits; W19.XXXA Unspecified fall, initial encounter; F05 Delirium due to known physiological condition; F01.50 Vascular dementia, unspecified severity, without behavioral disturbance, psychotic disturbance, mood disturbance, and anxiety
CPT/HCPCS: 36415; 70496; 70498; 73552; 76770; 80048; 80053; 80061; 82550; 82962; 87077; 87081; 93005; 93306; 95819; 96360; 96365; 97116; 97162; 97166; 97530; 99223; 99233; 99285; J1650; 70551; 71046; 72170; 73590; 80320; 81003; 81015; 83036; 84443; 84484; 85025; 85610; 85730; 87086; 87186; 93010; 99222; 99232; 99239; G0378; J0696; J3490

== ENCOUNTER → 2022-11-18 08:02 | Outpatient (BNVA) | payer MEDICARE, OTHER, SELFPAY ==
--- NOTE | 2022-11-20 16:03 | PTTR_ITS ---
Date of service: 11/20/22 Time of Service: 10:34 PT Notes Visit Reasons: INPATIENT-TIA Inpatient Physical Therapy Treatment Note [facility] Date: 11/20/22 PRECAUTIONS: Fall, standard, activity as tolerated, Andres catheter in place, ELKE alarm in place. SUBJECTIVE: Patient reports feeling not great, does not understand why he is here, wants the catheter out, feels like he needs to urinate. Sitting up in c hair, agreeable to therapy. OBJECTIVE: PAIN: none reported BED MOBILITY/TRANSFERS Sit-stand: min assist. No verbal cue required for hand placement. No verbal or tactile cue needed to scoot forward and get feet on floor. Stand-sit: min assist. Verbal cue for hand placement. Bed-Chair: CGA. Verbal cue to sit back far enough to be safe in chair. GAIT Assistive Device: FWW, gait belt. Weight bearing: full Assist: CGA-min assist, with verbal cues to keep patient on task. Distance: 25 feet Deviation: extreme shortened step length, reduced step height, stiff posture. VITALS: Monitored by nursing staff. ASSESSMENT: Patient seems clearer today. Better able to follow single step directions. Unclear whether this is due to improving medical status or reduced distractions during today's treatment vs yesterdays. LEKE alarm reactivated. PLAN: continue global strengthening per plan of care until patient is medically cleared to return to SNF TREATMENT CODE/TIME: 77617 Gait 14 minutes beginning at 10:34
== END ==
PROVIDERS: PCP Family Medicine; Referring Provider Family Medicine; Visit Provider Psychiatry & Neurology Neurology

== ENCOUNTER 2022-11-28 16:40 | Outpatient (REF) | payer MEDICARE, OTHER, SELFPAY ==
[2022-11-28 17:46] LABS: Bilirubin Negative (Negative); Blood Large (Negative); Clarity Turbid (Clear); Glucose Negative (Negative); Ketones Trace mg/dL (Negative); Leukocyte Esterase Negative (Negative); Nitrite Negative (Negative); Specific Gravity 1.025 (1.005-1.025); Urobilinogen 0.2 mg/dL (Up to 0.2)
[2022-11-28 19:01] LABS: Bacteria Negative HPF (Negative); C & S Indicated? No; Crystals Negative HPF (Negative); Epithelial Cells Negative HPF (Negative); Mucus Moderate (Negative); Other Cells Rare Transitional (Negative); WBC 0-2 HPF (0-5)
== END 2022-11-28 16:41 | disposition home or self-care (01) ==
LOC: LBN 16:40
PROVIDERS: PCP Family Medicine; Visit Provider Physician Assistant
DX: N39.0 Urinary tract infection, site not specified (principal); Z87.440 Personal history of urinary (tract) infections
CPT/HCPCS: 81003; 81015

== ENCOUNTER → 2022-12-05 10:39 | Outpatient (BNVA) | payer MEDICARE, OTHER, SELFPAY | PROVIDERS: PCP Family Medicine; Referring Provider Nurse Practitioner Family; Visit Provider Internal Medicine Cardiovascular Disease | DX: E78.00 Pure hypercholesterolemia, unspecified (principal); I11.0 Hypertensive heart disease with heart failure; I50.9 Heart failure, unspecified; E11.9 Type 2 diabetes mellitus without complications; I25.10 Atherosclerotic heart disease of native coronary artery without angina pectoris; Z95.2 Presence of prosthetic heart valve | CPT/HCPCS: 99213 ==

== ENCOUNTER → 2022-12-30 12:15 | Outpatient (BNVA) | payer MEDICARE, OTHER, SELFPAY | PROVIDERS: PCP Family Medicine; Referring Provider Family Medicine; Visit Provider Psychiatry & Neurology Neurology | DX: I69.311 Memory deficit following cerebral infarction (principal); Z79.82 Long term (current) use of aspirin; Z99.3 Dependence on wheelchair; F03.90 Unspecified dementia, unspecified severity, without behavioral disturbance, psychotic disturbance, mood disturbance, and anxiety; I10 Essential (primary) hypertension; E11.9 Type 2 diabetes mellitus without complications | CPT/HCPCS: 99214 ==

== ENCOUNTER 2023-01-24 15:33 | Outpatient (REF) | payer MEDICARE, OTHER, SELFPAY ==
[2023-01-24 08:45] LABS: Anion Gap 8.4 mmol/L (3-11); BUN 16 mg/dL (7-18); CO2 26.6 mmol/L (21.0-32.0); CREATININE 1.1 mg/dL (0.70-1.30); Calcium 9.5 mg/dL (8.5-10.1); Chloride 98 mmol/L (98-107); Estimated GFR 68.29 (mL/min/1.73m2); Glucose 185 mg/dL (74-106); Magnesium 1.9 mg/dL (1.8-2.4); Potassium 3.9 mmol/L (3.5-5.1); Sodium 133 mmol/L (136-145)
== END 2023-01-24 15:34 | disposition home or self-care (01) ==
LOC: LBN 15:33
PROVIDERS: PCP Family Medicine; Visit Provider Family Medicine
DX: E83.42 Hypomagnesemia (principal); N18.9 Chronic kidney disease, unspecified
CPT/HCPCS: 80048; 83036; 83735

== ENCOUNTER 2023-01-28 18:15 | Inpatient (IN) | payer MEDICARE, OTHER, SELFPAY ==
[2023-01-28] VITALS (30 sets, daily range): BP systolic 135–174; BP diastolic 51–83; PULSE 76–91; RESP 16–18; TEMP 36.8–37.9; O2SAT 95–99
--- NOTE | 2023-01-28 18:25 | W.ED.GENAD ---
Discharge Plan Discharge Details Chief Complaint: Cellulitis Admit Date/Time: 01/28/23 20:34 Admit Provider: Tab Becker Attending Provider: Tab Becker Primary Care Provider: Sony Simmons ED Provider: Jacki Juarez Medical Decision Making 77-year-old male with a past medical history of CVA, dementia, type 2 diabetes mellitus, GERD, hyperlipidemia presents to the ER via EMS with a chief complaint of left leg cellulitis which has been worsening. Leg is erythemic, warm swollen there is a pressure ulcer noted to his left heel. Erythema extends all the way up to the inner thigh. 1854: Lactate received from lab 4.3. NS one liter ordered. 1947: Nlood hemolyzed, lab to come redraw. CBC shows no leukocytosis, PT 11.3, glucose 195 sodium 138 potassium 3.8 CRP is greater than 25 albumin is 2.4 urinalysis shows trace protein trace blood 3-5 RBCs. At this time COVID is pending. Will call hospitalist for admission for IV antibiotics due to left leg cellulitis. 2026: Hospitalist paged spoke with Dr. Becker who agrees to accept patient for admission. He recommends XRay of foot and POCUS exam to R/O DVT. XR foot ordered shows no evidence of osteomyelitis. 2144: Dr. Fitzgerald assisted with POCUS exam at bedside no evidence for acute DVT. However exam was limited due to patient mobility. Popliteal vein visualized and compressible. Unable to visualize where the greater saphenous vein. Please see Dr. Fitzgerald's procedure note. 2146: Patient transported up to floor by ED staff. Medical Records Medical records reviewed: Yes I reviewed the patient's medical records. Imaging Data Radiologic Study: Imaging: X-Ray Radiologist's impression: TECHNIQUE: Imaging protocol: Radiologic exam of the left foot. Views: 3 or more views. COMPARISON: CR XR TIB/FIB LT 11/17/2022 6:30 PM FINDINGS: Bones/joints: Moderate 1st metatarsophalangeal joint degenerative disease. Mild interphalangeal joint degenerative changes. No acute fracture or dislocation. No focal osseous destruction to suggest osteomyelitis. Soft tissues: Mild medial forefoot soft tissue swelling. No soft tissue gas or radiopaque foreign body. Vasculature: Peripheral arterial calcification, consistent with diabetes. IMPRESSION: 1. No evidence of acute osteomyelitis. 2. No acute fracture. Thank you for allowing us to participate in the care of your patient. Dictated and Authenticated by: Slim Kellogg MD Lab Data Lab results reviewed: Yes I reviewed the patient's lab results. Labs: 01/28/23 18:43 Blood Blood Culture - Pending 01/28/23 18:43 Blood Blood Culture - Pending Laboratory Tests Range/Units 01/28/23 01/28/23 01/28/23 18:40 18:43 18:43 WBC (4.4-10.8) 10^3/uL 5.68 RBC (4.36-5.78) 10^6/uL 3.44 L Hgb (13.5-17.5) g/dL 11.8 L Hct (40.0-50.0) % 34.2 L MCV (80-95) fL 99 H MCH (27.0-33.0) pg 34.3 H MCHC (32.0-36.0) % 34.5 RDW (11.8-14.1) % 13.9 Plt Count (130-400) 10^3/uL 220 MPV (8.0-11.0) fL 10.9 Immature Gran % 0.0 Neutrophils % 85.0 Band Neutrophils % 5 Lymphocytes % 8.0 Monocytes % 2.0 Eosinophils % 0.0 Basophils % 0.0 Nucleated RBC % (0.0-0.3) % 0.0 Absolute Neutrophils (1.2-6.7) 10^3/uL 5.11 Absolute Lymphocytes (1.2-3.4) 10^3/uL 0.45 L Absolute Monocytes (0.1-0.8) 10^3/uL 0.11 Absolute Eosinophils (0.0-0.7) 10^3/uL 0.00 Absolute Basophils (0.0-0.2) 10^3/uL 0.00 RBC Morphology Normal PT (9.1-11.1) sec INR (0.9-1.1) VBG Lactate (0.6-1.4) mmol/L 4.3 H* Sodium (136-145) mmol/L Potassium (3.5-5.1) mmol/L Chloride (98-107) mmol/L Carbon Dioxide (21.0-32.0) mmol/L Anion Gap (3-11) mmol/L BUN (7-18) mg/dL Creatinine (0.70-1.30) mg/dL Est GFR (CKD-EPI 2020) (mL/min/1.73m2) Glucose (74-106) mg/dL Calcium (8.5-10.1) mg/dL Magnesium (1.8-2.4) mg/dL Total Bilirubin (0.2-1.0) mg/dL AST (15-37) U/L ALT (16-63) U/L Alkaline Phosphatase (46-116) U/L C-Reactive Protein (0.0-0.3) mg/dL Total Protein (6.4-8.2) g/dL Albumin (3.4-5.0) g/dL Urine Color (Yellow) Yellow Urine Clarity (Clear) Sl Cloudy Urine pH (5-8) 5.5 Ur Specific Gonzales (1.005-1.025) 1.020 Urine Protein (Negative) mg/dL Trace H Urine Ketones (Negative) mg/dL Negative Urine Blood (Negative) Trace-intact H Urine Nitrite (Negative) Negative Urine Bilirubin (Negative) Negative Urine Urobilinogen (Up to 0.2) mg/dL 0.2 Ur Leukocyte Esterase (Negative) Negative Urine RBC (0-2) HPF 3-5 H Urine WBC (0-5) HPF 0-2 Ur Epithelial Cells (Negative) HPF Rare Urine Crystals (Negative) HPF Negative Urine Bacteria (Negative) HPF Negative Urine Casts (Negative) LPF Negative Urine Mucus (Negative) Negative Ur Culture Indicated? No Urine Glucose (Negative) mg/dL 100 H COVID-19 Source SARS-CoV-2 (PCR) (Negative) MRSA (TEM-PCR) (Negative) Range/Units 01/28/23 01/28/23 01/28/23 18:43 19:39 19:54 WBC (4.4-10.8) 10^3/uL RBC (4.36-5.78) 10^6/uL Hgb (13.5-17.5) g/dL Hct (40.0-50.0) % MCV (80-95) fL MCH (27.0-33.0) pg MCHC (32.0-36.0) % RDW (11.8-14.1) % Plt Count (130-400) 10^3/uL MPV (8.0-11.0) fL Immature Gran % Neutrophils % Band Neutrophils % Lymphocytes % Monocytes % Eosinophils % Basophils % Nucleated RBC % (0.0-0.3) % Absolute Neutrophils (1.2-6.7) 10^3/uL Absolute Lymphocytes (1.2-3.4) 10^3/uL Absolute Monocytes (0.1-0.8) 10^3/uL Absolute Eosinophils (0.0-0.7) 10^3/uL Absolute Basophils (0.0-0.2) 10^3/uL RBC Morphology PT (9.1-11.1) sec 11.3 H INR (0.9-1.1) 1.1 VBG Lactate (0.6-1.4) mmol/L Sodium (136-145) mmol/L 138 Potassium (3.5-5.1) mmol/L 3.8 Chloride (98-107) mmol/L 104 Carbon Dioxide (21.0-32.0) mmol/L 27.1 Anion Gap (3-11) mmol/L 6.9 BUN (7-18) mg/dL 17 Creatinine (0.70-1.30) mg/dL 1.2 Est GFR (CKD-EPI 2020) (mL/min/1.73m2) 61.52 Glucose (74-106) mg/dL 195 H Calcium (8.5-10.1) mg/dL 8.9 Magnesium (1.8-2.4) mg/dL 1.8 Total Bilirubin (0.2-1.0) mg/dL 0.6 AST (15-37) U/L 28 ALT (16-63) U/L 22 Alkaline Phosphatase (46-116) U/L 84 C-Reactive Protein (0.0-0.3) mg/dL > 25.00 H Total Protein (6.4-8.2) g/dL 7.3 Albumin (3.4-5.0) g/dL 2.4 L Urine Color (Yellow) Urine Clarity (Clear) Urine pH (5-8) Ur Specific Gonzales (1.005-1.025) Urine Protein (Negative) mg/dL Urine Ketones (Negative) mg/dL Urine Blood (Negative) Urine Nitrite (Negative) Urine Bilirubin (Negative) Urine Urobilinogen (Up to 0.2) mg/dL Ur Leukocyte Esterase (Negative) Urine RBC (0-2) HPF Urine WBC (0-5) HPF Ur Epithelial Cells (Negative) HPF Urine Crystals (Negative) HPF Urine Bacteria (Negative) HPF Urine Casts (Negative) LPF Urine Mucus (Negative) Ur Culture Indicated? Urine Glucose (Negative) mg/dL COVID-19 Source Nasal/Nares SARS-CoV-2 (PCR) (Negative) Negative MRSA (TEM-PCR) (Negative) Range/Units 01/28/23 19:55 WBC (4.4-10.8) 10^3/uL RBC (4.36-5.78) 10^6/uL Hgb (13.5-17.5) g/dL Hct (40.0-50.0) % MCV (80-95) fL MCH (27.0-33.0) pg MCHC (32.0-36.0) % RDW (11.8-14.1) % Plt Count (130-400) 10^3/uL MPV (8.0-11.0) fL Immature Gran % Neutrophils % Band Neutrophils % Lymphocytes % Monocytes % Eosinophils % Basophils % Nucleated RBC % (0.0-0.3) % Absolute Neutrophils (1.2-6.7) 10^3/uL Absolute Lymphocytes (1.2-3.4) 10^3/uL Absolute Monocytes (0.1-0.8) 10^3/uL Absolute Eosinophils (0.0-0.7) 10^3/uL Absolute Basophils (0.0-0.2) 10^3/uL RBC Morphology PT (9.1-11.1) sec INR (0.9-1.1) VBG Lactate (0.6-1.4) mmol/L Sodium (136-145) mmol/L Potassium (3.5-5.1) mmol/L Chloride (98-107) mmol/L Carbon Dioxide (21.0-32.0) mmol/L Anion Gap (3-11) mmol/L BUN (7-18) mg/dL Creatinine (0.70-1.30) mg/dL Est GFR (CKD-EPI 2020) (mL/min/1.73m2) Glucose (74-106) mg/dL Calcium (8.5-10.1) mg/dL Magnesium (1.8-2.4) mg/dL Total Bilirubin (0.2-1.0) mg/dL AST (15-37) U/L ALT (16-63) U/L Alkaline Phosphatase (46-116) U/L C-Reactive Protein (0.0-0.3) mg/dL Total Protein (6.4-8.2) g/dL Albumin (3.4-5.0) g/dL Urine Color (Yellow) Urine Clarity (Clear) Urine pH (5-8) Ur Specific Gonzales (1.005-1.025) Urine Protein (Negative) mg/dL Urine Ketones (Negative) mg/dL Urine Blood (Negative) Urine Nitrite (Negative) Urine Bilirubin (Negative) Urine Urobilinogen (Up to 0.2) mg/dL Ur Leukocyte Esterase (Negative) Urine RBC (0-2) HPF Urine WBC (0-5) HPF Ur Epithelial Cells (Negative) HPF Urine Crystals (Negative) HPF Urine Bacteria (Negative) HPF Urine Casts (Negative) LPF Urine Mucus (Negative) Ur Culture Indicated? Urine Glucose (Negative) mg/dL COVID-19 Source SARS-CoV-2 (PCR) (Negative) MRSA (TEM-PCR) (Negative) Positive A HPI General Mode of arrival: EMS. Date/Time Provider Initiated Documentation: 01/28/23 18:20. Limitations to Documentation: physical limitation. Information obtained by: EMS, RN notes reviewed and old records reviewed. HPI Narrative: 77-year-old male with a past medical history of CVA, dementia, type 2 diabetes mellitus, GERD, hyperlipidemia presents to the ER via EMS with a chief complaint of left leg cellulitis which has been worsening. Leg is erythemic, warm swollen there is a pressure ulcer noted to his left heel. Erythema extends all the way up to the inner thigh. Related Data Home Medications Medication Instructions Recorded Confirmed acetaminophen 500 mg tablet 500 mg PO Q6H PRN 02/27/14 01/28/23 (Acetaminophen Extra Strength) atorvastatin 40 mg tablet 40 mg PO QHS 11/07/21 01/28/23 bisacodyl 10 mg rectal suppository 10 mg DE DAILY PRN 11/07/21 01/28/23 dextrose 40 % oral gel (Glucose 15 g PO Q15M PRN 11/07/21 01/28/23 Gel) glucagon 1 mg injection kit See Rx Instructions IM .COMPLEX 11/07/21 01/28/23 magnesium hydroxide 400 mg/5 mL 30 ml PO DAILY PRN 11/07/21 01/28/23 oral suspension multivitamin 1 tab PO DAILY 11/07/21 01/28/23 sodium phosphates 19 gram-7 118 ml DE ONCE PRN 11/07/21 01/28/23 gram/197 mL enema (Fleet Enema Extra) magnesium oxide 400 mg (241.3 mg 400 mg PO BID #0 tabs 08/04/22 01/28/23 magnesium) tablet metformin 1,000 mg tablet 1,000 mg PO BIDWMEAL 11/17/22 01/28/23 nitroglycerin 0.4 mg sublingual 0.4 mg sublingual PRN PRN 11/17/22 01/28/23 tablet clopidogrel 75 mg tablet 75 mg PO DAILY #0 tabs 11/20/22 01/28/23 hydrocortisone 1 % topical cream 1 applic topical BID PRN 12/30/22 01/28/23 clotrimazole 1 % topical cream 1 applic topical BID 01/28/23 01/28/23 Previous Rx's Medication Instructions Recorded magnesium oxide 400 mg (241.3 mg 400 mg PO BID #0 tabs 08/04/22 magnesium) tablet clopidogrel 75 mg tablet 75 mg PO DAILY #0 tabs 11/20/22 Allergies Allergy/AdvReac Type Severity Reaction Status Date / Time No Known Allergies Allergy Verified 01/28/23 20:54 General Stated Complaint: Cellulitis CLEMENTINA: 3 Review of Systems Integumentary/Breasts Skin/Breast: Reports as per HPI, Reports erythema, Reports skin pain and Reports skin swelling PFSH All Active Problems (Updated 01/28/23 @ 21:49 by Tab Becker) Discharge planning issues (Acute) DVT prophylaxis (Acute) Diabetic foot ulcer (Acute) Cellulitis of left lower limb (Acute) Weight loss (Acute) UTI (urinary tract infection) (Acute) Stroke (Chronic) Dementia (Chronic) Nonspecific paroxysmal spell (Acute) Brain TIA (Acute) Stenosis of right middle cerebral artery (Acute) MRSA colonization (Acute) Type 2 diabetes mellitus (Chronic) Medical History Ambulatory dysfunction Anemia, mild BPH (benign prostatic hyperplasia) CAD (coronary artery disease) CHF (congestive heart failure) Diabetes Dizziness and giddiness E coli infection GERD (gastroesophageal reflux disease) HLD (hyperlipidemia) Hypercholesteremia Hyperglycemia Hypertension Memory changes Middle cerebral artery stenosis Mobility impaired Neuropathy Obesity Psoriasis Rash Sepsis secondary to UTI Tachy-sara syndrome Tinea corporis Urinary incontinence Surgical History H/O hernia repair H/O surgical procedure a. Aortic valve replacement 04/2013 b. left THR 10/04/2013 c. Left TKR 6-7 years ago Hx of CABG S/P appendectomy S/P AVR (aortic valve replacement) 04/2013 S/P knee replacement Social History Smoking/Tobacco Use Status: Former Tobacco Use Smoking risk assessment performed?: Yes Alcohol Intake: never Drug use: Never Substance use type: does not use Housing: snf Do you feel safe at home: Yes Do you feel safe in your relationship?: Yes Additional Social history: [facility] resident of [facility] and [facility] Exam Const General: frail appearing Nutritional Appearance: well nourished Orientation: awake and confused (At baseline, hx of dementia) Resp Effort & Inspection: normal respiratory effort and able to speak in complete sentences Auscultation: clear to auscultation bilaterally Cardio Rate: regular rate Rhythm: regular rhythm Skin General skin exam: erythema (Left leg) Wounds: wounds noted ulceration left posterior heel with surrounding erythema Neuro General: patient awake, patient confused and unable to assess gait Extrem Left lower extremity: foot Details: other (ulcer heel) Upper/lower leg/hip images: 1. Erythema swelling Course Vital Signs Vital signs: Vital Signs Temperature 36.8 C 01/28/23 18:18 Pulse 91 H 01/28/23 18:18 Respiratory Rate 18 01/28/23 18:18 Blood Pressure 146/62 H 01/28/23 18:18 Pulse Oximetry 96 01/28/23 18:18 Temperature 36.8 C 01/28/23 18:18 Temperature Source Tympanic 01/28/23 18:18 Pulse 91 H 01/28/23 18:18 Respiratory Rate 18 01/28/23 18:18 Respiratory Effort Normal 01/28/23 18:22 Blood Pressure 146/62 H 01/28/23 18:18 Blood Pressure Position Supine 01/28/23 18:18 Pulse Oximetry 96 01/28/23 18:18 Oxygen Delivery Method Room Air 01/28/23 18:18 Oxygen Flow Rate 0 01/28/23 18:18 Pain Level 0 01/28/23 18:18 Lab/Test Results Lab/Test Results: 01/28/23 18:20 Blood Blood Culture - Pending 01/28/23 18:20 Blood Blood Culture - Pending
[2023-01-28] MEDS: ceFAZolin 1 GM/50 ML BAG IVPB ×2 (18:46→23:20)
[2023-01-28 18:54] LABS: Lactate 4.3 mmol/L (0.6-1.4)
[2023-01-28 18:55] LABS: Abs Immature Grans 0.06 10^3/uL (0.0-0.06); HCT 34.2 % (40.0-50.0); HGB 11.8 g/dL (13.5-17.5); MCH 34.3 pg (27.0-33.0); MCHC 34.5 % (32.0-36.0); MCV 99 fL (80-95); MPV 10.9 fL (8.0-11.0); Platelet Count 220 10^3/uL (130-400); RBC 3.44 10^6/uL (4.36-5.78); RDW 13.9 % (11.8-14.1); RDW-SD 51.1 fL; WBC 5.68 10^3/uL (4.4-10.8)
[2023-01-28 19:01] LABS: Bilirubin Negative (Negative); Blood Trace-intact (Negative); Clarity Sl Cloudy (Clear); Glucose 100 mg/dL (Negative); Ketones Negative (Negative); Leukocyte Esterase Negative (Negative); Nitrite Negative (Negative); Urobilinogen 0.2 mg/dL (Up to 0.2); pH 5.5 (5-8)
[2023-01-28 19:04] LABS: INR 1.1 (0.9-1.1); Prothrombin Time 11.3 sec (9.1-11.1)
[2023-01-28] MEDS: Normal Saline 1,000 ML 1000 ML IV (19:04)
[2023-01-28 19:10] LABS: Absolute Lymphocyte Count 0.45 10^3/uL (1.2-3.4); Absolute Monocyte Count 0.11 10^3/uL (0.1-0.8); Absolute Neutrophil Count 5.11 10^3/uL (1.2-6.7); Bands % 5; Diff Comment Manual Differential; RBC Morphology Normal
[2023-01-28 19:16] LABS: Epithelial Cells Rare HPF (Negative); WBC 0-2 HPF (0-5)
[2023-01-28 19:17] LABS: Bacteria Negative HPF (Negative); C & S Indicated? No; Casts Negative LPF (Negative); Crystals Negative HPF (Negative); Mucus Negative (Negative)
[2023-01-28 19:50] LABS: Source Nasal/Nares
[2023-01-28 20:21] LABS: ALT 22 U/L (16-63); AST 28 U/L (15-37); Albumin 2.4 g/dL (3.4-5.0); Alkaline Phosphatase 84 U/L (46-116); Anion Gap 6.9 mmol/L (3-11); BUN 17 mg/dL (7-18); Bilirubin, Total 0.6 mg/dL (0.2-1.0); CO2 27.1 mmol/L (21.0-32.0); CREATININE 1.2 mg/dL (0.70-1.30); Calcium 8.9 mg/dL (8.5-10.1); Chloride 104 mmol/L (98-107); Estimated GFR 61.52 (mL/min/1.73m2); Glucose 195 mg/dL (74-106); Magnesium 1.8 mg/dL (1.8-2.4); Potassium 3.8 mmol/L (3.5-5.1); Sodium 138 mmol/L (136-145); Total Protein 7.3 g/dL (6.4-8.2)
[2023-01-28 20:23] LABS: COVID-19 PCR Negative (Negative)
[2023-01-28 20:24] LABS: C-Reactive Protein > 25.00 mg/dL (0.0-0.3)
--- NOTE | 2023-01-28 20:30 | DI.RAD_ITS ---
Exam(s) XR FOOT LT COMPLETE EXAM: XR FOOT LT COMPLETE CLINICAL HISTORY: Wound, infection. TECHNIQUE: 2D digital imaging was performed. Three views. COMPARISON: No exams were available for comparison FINDINGS: BONES: No acute fracture is present. No bony destructive lesion is seen. JOINTS: No dislocation present. Mild degenerative changes 1st MTP joint. SOFT TISSUE: Swelling. No foreign body. Vascular calcifications. IMPRESSION: Soft tissue swelling. No plain film evidence of osteomyelitis. DATA REPOSITORY: RADIATION DOSE DELIVERED:
[2023-01-28 21:13] LABS: MRSA PCR Positive (Negative)
[2023-01-28] MEDS: Normal Saline 1,000 ML 150 ML IV (21:28)
--- NOTE | 2023-01-28 21:32 | DI.VRAD_ITS ---
PROCEDURE INFORMATION: Exam: XR Left Foot Exam date and time: 01/28/2023 8:56 PM Age: 77 years old Clinical indication: Other: Wound, infection; Additional info: Swelling, hot to touch TECHNIQUE: Imaging protocol: Radiologic exam of the left foot. Views: 3 or more views. COMPARISON: CR XR TIB/FIB LT 11/17/2022 6:30 PM FINDINGS: Bones/joints: Moderate 1st metatarsophalangeal joint degenerative disease. Mild interphalangeal joint degenerative changes. No acute fracture or dislocation. No focal osseous destruction to suggest osteomyelitis. Soft tissues: Mild medial forefoot soft tissue swelling. No soft tissue gas or radiopaque foreign body. Vasculature: Peripheral arterial calcification, consistent with diabetes. IMPRESSION: 1. No evidence of acute osteomyelitis. 2. No acute fracture. Dictated and Authenticated by: Slim Kellogg MD. Ordering:SARAH Echeverria MD
--- NOTE | 2023-01-28 21:36 | W.EDPROG ---
Date of service: 01/28/23 Time of Service: 21:36 Medical Decision Making I was asked to complete a limited bedside left lower extremity DVT study on this patient with his advanced practitioner. This was unfortunately nondiagnostic study however the patient had no obvious signs of DVT. Discharge Plan Discharge Details Chief Complaint: Cellulitis Primary Care Provider: Sony Simmons ED Provider: Jacki Juarez Meds and New Rx's Prescriptions: No Action hydrocortisone 1 % cream 1 applic topical BID PRN multivitamin Tablet 1 tab PO DAILY bisacodyl 10 mg suppository 10 mg KS DAILY PRN Patient Comments: not on med list Fleet Enema Extra 19-7 gram/197 mL enema 118 ml KS ONCE PRN Patient Comments: not on med list glucagon 1 mg kit See Rx Instructions IM .COMPLEX Patient Comments: not on med list Rx Instructions: intramuscularly; dextrose [Glucose Gel] 40 % gel 15 g PO Q15M PRN Patient Comments: not on med list Rx Instructions: until symptoms of low blood sugar are controlled magnesium hydroxide 400 mg/5 mL suspension 30 ml PO DAILY PRN Patient Comments: not on med list atorvastatin 40 mg tablet 40 mg PO QHS Patient Comments: not on med list acetaminophen [Acetaminophen Extra Strength] 500 MG tablet 500 mg PO Q6H PRN Patient Comments: not on med list clotrimazole 1 % Cream 1 applic TOPICAL BID magnesium oxide 400 mg (241.3 mg magnesium) Tablet 400 mg PO BID Qty: 0 0RF Patient Comments: not on med list metformin 1,000 mg Tablet 1,000 mg PO BIDWMEAL nitroglycerin 0.4 mg Tablet, Sublingual 0.4 mg sublingual PRN PRN clopidogrel 75 mg Tablet 75 mg PO DAILY Qty: 0 0RF POCUS Exam (ED) Limited Vascular Exam DATE OF EXAM: 01/28/23 TIME OF EXAM: 21:37 PROVIDER THAT PERFORMED THE STUDY: Tab Fitzgerald IS THIS A REPEAT EXAM DURING THIS ENCOUNTER: No Vascular Exam: Left lower extremity REASON FOR EXAM: Left lower extremity erythema Exam Complete DIFFERENTIAL DIAGNOSES: No definitive DVT difficult to visualize the greater saphenous vein so nondiagnostic study.
--- NOTE | 2023-01-28 21:44 | W.PM.HP.N ---
Date of service: 01/28/23 Time of Service: 23:00 Assessment and Plan Assessment and plan (1) Cellulitis of left lower limb: Status: Acute Assessment and plan: Treated with 1g cefazolin in ED. Given extenstive infection will increase to 2g IV q 8 hr. Not a purluent infection and clinically looks like strep but given active MRSA colonization will cover with vancomycin until he is clearly improving. It doesn't appear to be joint involvment, though history and exam limited by his dementia. There was some concern for DVT, but POCUS non diagnostic. I personally think this is clearly infectious so I don't think doppler necessary. With very high CRP and foot ulcer present, there is some concern for osteomyelitis. CXR does not suggest this, but may consider MRI for better senstivity if respose to treatment is slow. (2) Diabetic foot ulcer: Status: Acute Assessment and plan: This is unstagable at this point. Offloading. Monitor. (3) Stroke: Status: Chronic Assessment and plan: H/o cerebrovascular disease with admission 2 months ago concerning for TIA. New cerebrovascular disease was discovered on MRI, but findings were not c/w his symptoms and Dr. Fernandez treated with 30 days of DAPT followed by clopidogrel. Will continue the clopidogrel and his atorvastatin per her receommendations. (4) Type 2 diabetes mellitus: Status: Chronic Assessment and plan: His last A1c reflects reasonably good control without medications. Glucogon on his medication list suggests a history of hypoglycemia. Will monitor blood sugars given acute infection and treat if glucose consistently over 180. (5) CAD (coronary artery disease): Assessment and plan: No recent symptoms, statin/clopidogrel as above. (6) Dementia: Status: Chronic Assessment and plan: Monitor and try to manage behaviorally. 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 This can be a/w strep, though he seems to have it chronically. On areas on buttocks and back where there is pressure he has blanching reddish skin but this does not appear to be related to the more diffuse hot cellulitic rash on his left leg. (8) DVT prophylaxis: Status: Acute Assessment and plan: LMWH (9) Discharge planning issues: Status: Acute Assessment and plan: He can return to health and rehab once he is clearly improving and we have a plan to finish therapy. History of Present Illness History of Present Illness Chief Complaint: leg pain/swelling Narrative: 77 yo M, resident of [facility] with vascular dementia who has a history of MRSA colonization as well as a history of CAD, s/p bioprosthetic AVR, cerebrovascular disease, and type 2 diabetes sent from his care home facility with worsening pain and swelling in his left lower extremity. Patient states he just noted the redness spreading today, though his history is limited by dementia. He had not noted an open wound before this. He has not felt sick with fever, chills, or anorexia. He had not been treated as an outpatient before being sent to the ED. He is tender in the left leg, but denies pain at rest. Review of Systems Constitutional Constitutional: Denies anorexia, Denies chills, Denies fever(s), Denies headache(s) and Denies weakness Eyes Eyes: Denies change in vision and Denies irritation ENT Ears, Nose, Mouth, and Throat: Denies dizziness, Denies headache(s), Denies nasal congestion, Denies nasal discharge and Denies sore throat Cardiovascular Cardiovascular: Denies chest pain, Denies edema, Denies palpitations and Denies orthopnea Respiratory Respiratory: Denies cough, Denies excessive phlegm production and Denies wheezing Gastrointestinal Gastrointestinal: Denies abdominal pain, Denies change in bowel habits, Denies constipation, Denies diarrhea and Denies vomiting Genitourinary Genitourinary: Denies hematuria, Denies dysuria and Reports urinary incontinence (uses brief chronically) Integumentary/Breasts Skin/Breast: Denies rash and Denies skin ulcer Neurologic Neurologic: Denies confusion, Denies dizziness, Denies headache(s), Denies localized weakness, Denies sensory deficit and Denies weakness Psychiatric Psychiatric: Denies confusion Endocrine Endocrine: Denies palpitations Hematologic/Lymphatic Hematologic/Lymphatic: Denies easy bleeding Allergic/Immunologic Allergic/Immunologic: Denies wheezing PFSH All Active Problems Discharge planning issues (Acute) DVT prophylaxis (Acute) Diabetic foot ulcer (Acute) Cellulitis of left lower limb (Acute) Weight loss (Acute) UTI (urinary tract infection) (Acute) Stroke (Chronic) Dementia (Chronic) Nonspecific paroxysmal spell (Acute) Brain TIA (Acute) Stenosis of right middle cerebral artery (Acute) MRSA colonization (Acute) Type 2 diabetes mellitus (Chronic) Medical History Ambulatory dysfunction Anemia, mild BPH (benign prostatic hyperplasia) CAD (coronary artery disease) CHF (congestive heart failure) Diabetes Dizziness and giddiness E coli infection GERD (gastroesophageal reflux disease) HLD (hyperlipidemia) Hypercholesteremia Hyperglycemia Hypertension Memory changes Middle cerebral artery stenosis Mobility impaired Neuropathy Obesity Psoriasis Rash Sepsis secondary to UTI Tachy-sara syndrome Tinea corporis Urinary incontinence Surgical History H/O hernia repair H/O surgical procedure a. Aortic valve replacement 04/2013 b. left THR 10/04/2013 c. Left TKR 6-7 years ago Hx of CABG S/P appendectomy S/P AVR (aortic valve replacement) 04/2013 S/P knee replacement Social History Smoking/Tobacco Use Status: Former Tobacco Use Smoking risk assessment performed?: Yes Alcohol Intake: never Drug use: Never Substance use type: does not use Housing: assisted living facility Do you feel safe at home: Yes Do you feel safe in your relationship?: Yes Additional Social history: Current resident of [facility] Allergies and Home Medications Allergies Allergy/AdvReac Type Severity Reaction Status Date / Time No Known Allergies Allergy Verified 01/28/23 20:54 Home Medications Medication Instructions Recorded Confirmed Type acetaminophen 500 mg tablet 500 mg PO Q6H PRN 02/27/14 01/28/23 History (Acetaminophen Extra Strength) atorvastatin 40 mg tablet 40 mg PO QHS 11/07/21 01/28/23 History bisacodyl 10 mg rectal suppository 10 mg KS DAILY PRN 11/07/21 01/28/23 History dextrose 40 % oral gel (Glucose 15 g PO Q15M PRN 11/07/21 01/28/23 History Gel) glucagon 1 mg injection kit See Rx Instructions IM .COMPLEX 11/07/21 01/28/23 History magnesium hydroxide 400 mg/5 mL 30 ml PO DAILY PRN 11/07/21 01/28/23 History oral suspension multivitamin 1 tab PO DAILY 11/07/21 01/28/23 History sodium phosphates 19 gram-7 118 ml KS ONCE PRN 11/07/21 01/28/23 History gram/197 mL enema (Fleet Enema Extra) magnesium oxide 400 mg (241.3 mg 400 mg PO BID #0 tabs 08/04/22 01/28/23 Rx magnesium) tablet metformin 1,000 mg tablet 1,000 mg PO BIDWMEAL 11/17/22 01/28/23 History nitroglycerin 0.4 mg sublingual 0.4 mg sublingual PRN PRN 11/17/22 01/28/23 History tablet clopidogrel 75 mg tablet 75 mg PO DAILY #0 tabs 11/20/22 01/28/23 Rx hydrocortisone 1 % topical cream 1 applic topical BID PRN 12/30/22 01/28/23 History clotrimazole 1 % topical cream 1 applic topical BID 01/28/23 01/28/23 History Exam Narrative Exam Narrative: GEN: Alert and pleasant, cooperative and answers questions, but history is vague and unable to recall details. No acute distress at rest. HEENT: Head atraumatic. Conjunctiva clear, no icterus. PEERL, EOMI. no rhinorrhea. MMM, OP benign. Neck is supple with no masses or lymphadenopathy LUNGS: CTAB with normal effort CV: RRR with 2/6 systolic murmur without radiation. No gallops, or rubs. ABD: +BS, soft, NT/ND. non-tender umbilical hernia EXT: no cyanosis, clubbing. No edema right. Left with redness and swelling that extends from mid thigh to left foot, blanched around his knee, with more notable edema and tendeness in lower leg. MSK: No focal joint swelling, he is not in pain with moving hip or knee on the left. NEURO: CN 2-12 grossly intact. He moves all 4 extremities, symmetric, increased tone diffusely. Mild tremor when using hands. Normal speech SKIN: Bright red skin from upper right down to left foot, as above, skin over knee looks more blanched. 6cm purplish bulla over the left heal. No fissures/maceration between toes. Diffuse 4mm-1cm patches of thickened scale most notable on back, arms. No open wounds. PSYCH: normal mood and affect, poor memory Results Imaging Imaging Studies: Foot XR: 1. ? No evidence of acute osteomyelitis. No soft tissue gas 2. ? No acute fracture. Labs 01/28/23 18:43 01/28/23 19:54 Labs: Laboratory Results - last 24 hr 01/28/23 01/28/23 01/28/23 18:40 18:43 18:43 WBC 5.68 RBC 3.44 L Hgb 11.8 L Hct 34.2 L MCV 99 H MCH 34.3 H MCHC 34.5 RDW 13.9 Plt Count 220 MPV 10.9 Immature Gran % 0.0 Neutrophils % 85.0 Band Neutrophils % 5 Lymphocytes % 8.0 Monocytes % 2.0 Eosinophils % 0.0 Basophils % 0.0 Nucleated RBC % 0.0 Absolute Neutrophils 5.11 Absolute Lymphocytes 0.45 L Absolute Monocytes 0.11 Absolute Eosinophils 0.00 Absolute Basophils 0.00 RBC Morphology Normal PT INR VBG Lactate 4.3 H* Sodium Potassium Chloride Carbon Dioxide Anion Gap BUN Creatinine Est GFR (CKD-EPI 2020) Glucose Calcium Magnesium Total Bilirubin AST ALT Alkaline Phosphatase C-Reactive Protein Total Protein Albumin Urine Color Yellow Urine Clarity Sl Cloudy Urine pH 5.5 Ur Specific [place] 1.020 Urine Protein Trace H Urine Ketones Negative Urine Blood Trace-intact H Urine Nitrite Negative Urine Bilirubin Negative Urine Urobilinogen 0.2 Ur Leukocyte Esterase Negative Urine RBC 3-5 H Urine WBC 0-2 Ur Epithelial Cells Rare Urine Crystals Negative Urine Bacteria Negative Urine Casts Negative Urine Mucus Negative Ur Culture Indicated? No Urine Glucose 100 H COVID-19 Source SARS-CoV-2 (PCR) MRSA (TEM-PCR) 01/28/23 01/28/23 01/28/23 18:43 19:39 19:54 WBC RBC Hgb Hct MCV MCH MCHC RDW Plt Count MPV Immature Gran % Neutrophils % Band Neutrophils % Lymphocytes % Monocytes % Eosinophils % Basophils % Nucleated RBC % Absolute Neutrophils Absolute Lymphocytes Absolute Monocytes Absolute Eosinophils Absolute Basophils RBC Morphology PT 11.3 H INR 1.1 VBG Lactate Sodium 138 Potassium 3.8 Chloride 104 Carbon Dioxide 27.1 Anion Gap 6.9 BUN 17 Creatinine 1.2 Est GFR (CKD-EPI 2020) 61.52 Glucose 195 H Calcium 8.9 Magnesium 1.8 Total Bilirubin 0.6 AST 28 ALT 22 Alkaline Phosphatase 84 C-Reactive Protein > 25.00 H Total Protein 7.3 Albumin 2.4 L Urine Color Urine Clarity Urine pH Ur Specific [place] Urine Protein Urine Ketones Urine Blood Urine Nitrite Urine Bilirubin Urine Urobilinogen Ur Leukocyte Esterase Urine RBC Urine WBC Ur Epithelial Cells Urine Crystals Urine Bacteria Urine Casts Urine Mucus Ur Culture Indicated? Urine Glucose COVID-19 Source Nasal/Nares SARS-CoV-2 (PCR) Negative MRSA (TEM-PCR) 01/28/23 19:55 WBC RBC Hgb Hct MCV MCH MCHC RDW Plt Count MPV Immature Gran % Neutrophils % Band Neutrophils % Lymphocytes % Monocytes % Eosinophils % Basophils % Nucleated RBC % Absolute Neutrophils Absolute Lymphocytes Absolute Monocytes Absolute Eosinophils Absolute Basophils RBC Morphology PT INR VBG Lactate Sodium Potassium Chloride Carbon Dioxide Anion Gap BUN Creatinine Est GFR (CKD-EPI 2020) Glucose Calcium Magnesium Total Bilirubin AST ALT Alkaline Phosphatase C-Reactive Protein Total Protein Albumin Urine Color Urine Clarity Urine pH Ur Specific [place] Urine Protein Urine Ketones Urine Blood Urine Nitrite Urine Bilirubin Urine Urobilinogen Ur Leukocyte Esterase Urine RBC Urine WBC Ur Epithelial Cells Urine Crystals Urine Bacteria Urine Casts Urine Mucus Ur Culture Indicated? Urine Glucose COVID-19 Source SARS-CoV-2 (PCR) MRSA (TEM-PCR) Positive A Last Vital Signs Temp 36.8 C 01/28/23 21:36 Pulse 82 01/28/23 21:36 Resp 18 01/28/23 21:36 BP 174/65 H 01/28/23 21:36 Pulse Ox 97 01/28/23 21:36 Time Spent Time spent with Patient: 55-74 minutes Time was spent: preparing to see the patient(eg.review tests), obtaining and/or reviewing separately otained hiistory, ordering medications,tests, procedures, referring, communicating with other health home care scheduler, indepentently interpreting results and counseling the patient
[2023-01-28] MEDS: Atorvastatin 40 MG TAB PO (23:36)
[2023-01-28] MEDS: Acetaminophen 500 MG TAB PO (23:36)
--- NOTE | 2023-01-29 | DI.US_ITS ---
Exam(s) US LOWER EXTREMITY VENOUS LT EXAM: US LOWER EXTREMITY VENOUS LT CLINICAL HISTORY: edema. TECHNIQUE: Lower extremity venous ultrasound performed using grayscale, color-flow, and spectral Do ppler analysis. COMPARISON: No exams were available for comparison FINDINGS: The common femoral, femoral and popliteal veins demonstrate normal compressibility, augmentation, and color Doppler. The posterior tibial veins are patent. No saphenous vein thrombosis or other superfi cial venous thrombosis is seen. No hematoma or Briseno's cyst is seen. Calf edema. IMPRESSION: Calf edema. No evidence of DVT. DATA REPOSITORY:
[2023-01-29] MEDS: VANCOMYCIN 2,500 MG in Normal Saline 500 ML 250 MG IVPB (01:06)
[2023-01-29 03:29] VITALS: BP 128/69; PULSE 73; RESP 18; TEMP 36.7; O2SAT 95
[2023-01-29] MEDS: ceFAZolin 2 GM/50 ML BAG IVPB ×3 (05:52→20:47)
[2023-01-29 05:59] LABS: Bilirubin Negative (Negative); Blood Trace-intact (Negative); Clarity Clear (Clear); Glucose 100 mg/dL (Negative); Ketones Negative (Negative); Leukocyte Esterase Negative (Negative); Nitrite Negative (Negative); Specific Gravity 1.025 (1.005-1.025); pH 5.5 (5-8)
[2023-01-29 06:10] LABS: Bacteria Moderate HPF (Negative); Crystals Negative HPF (Negative); Epithelial Cells Rare HPF (Negative); Mucus Negative (Negative); WBC 0-2 HPF (0-5)
[2023-01-29 06:11] LABS: Casts 0-2 Fine Granular LPF (Negative)
[2023-01-29 06:16] LABS: C & S Indicated? C&S Done As Ordered
[2023-01-29 07:17] LABS: Lactate 0.8 mmol/L (0.6-1.4)
[2023-01-29 07:20] LABS: Abs Immature Grans 0.06 10^3/uL (0.0-0.06); Absolute Basophil Count 0.01 10^3/uL (0.0-0.2); Absolute Eosinophil Count 0.12 10^3/uL (0.0-0.7); Absolute Lymphocyte Count 0.47 10^3/uL (1.2-3.4); Absolute Monocyte Count 0.05 10^3/uL (0.1-0.8); Basophils % 0.2; Eosinophils % 2.3; HCT 27.1 % (40.0-50.0); HGB 9.2 g/dL (13.5-17.5); Immature Grans % 1.2; Lymphocytes % 9.2; MCH 33.3 pg (27.0-33.0); MCHC 33.9 % (32.0-36.0); MCV 98 fL (80-95); Neutrophils % 86.1; Platelet Count 163 10^3/uL (130-400); RBC 2.76 10^6/uL (4.36-5.78); RDW 13.9 % (11.8-14.1); RDW-SD 49.9 fL; WBC 5.11 10^3/uL (4.4-10.8)
[2023-01-29 07:31] LABS: Anion Gap 8.3 mmol/L (3-11); BUN 14 mg/dL (7-18); CO2 23.7 mmol/L (21.0-32.0); CREATININE 0.9 mg/dL (0.70-1.30); Calcium 8.5 mg/dL (8.5-10.1); Chloride 105 mmol/L (98-107); Estimated GFR 86.88 (mL/min/1.73m2); Glucose 187 mg/dL (74-106); Potassium 3.6 mmol/L (3.5-5.1); Sodium 137 mmol/L (136-145)
[2023-01-29 08:14] VITALS: BP 136/74; PULSE 68; RESP 18; TEMP 36.2; O2SAT 96
[2023-01-29] MEDS: Insulin Aspart 300 UNITS/3 ML PEN SC ×3 (08:35→17:33)
[2023-01-29] MEDS: Clopidogrel 75 MG TAB PO (08:35)
[2023-01-29] MEDS: Magnesium Oxide 400 MG TAB PO ×2 (08:35→20:46)
[2023-01-29] MEDS: Multivitamin TAB 1 TAB PO (08:35)
[2023-01-29] MEDS: metFORMIN 500 MG TAB 1000 MG PO ×2 (08:35→17:34)
[2023-01-29] MEDS: Normal Saline Flush 10 ML SYR IVP ×2 (09:05→17:34)
--- NOTE | 2023-01-29 10:05 | INITIAL_ITS ---
Date of service: 01/29/23 Time of Service: 10:05 Care Management Initial Assmt Initial Assessment REASON FOR HOSPITALIZATION:: Left leg cellulitis PREVIOUS FUNCTIONAL STATUS/SOCIAL/FAMILY SUPPORTS:: Alvarez resides at [facility], where he receives his care. His and daughter live locally and visit him regularly. He is dependent on the facility for his ADLs. CURRENT FUNCTIONAL STATUS:: Alvarez was working with PT when CM attempted to meet with him. PT recommends that he return to SNF for continued rehab. He currently resides at [facility]; CM will coordinate his return once he is medically ready. CM will continue to follow. ADVANCE DIRECTIVES:: [facility] on file Has patient been provided with info about the portal/API?: Yes Did the patient sign up for the portal?: No CODE STATUS:: DNR/DNI INSURANCE COVERAGE / FINANCIAL ISSUES:: MCR. [employer]. CURRENT HOME/COMMUNITY SERVICES/EQUIPMENT:: Alvarez receives all of his care at [facility], where he resides. PRIMARY CARE PHYSICIAN:: Sony Simmons POTENTIAL DISCHARGE NEEDS:: Coordinated return to [facility] PATIENT/FAMILY EDUCATION NEEDS:: Review discharge instructions and limitations, discussion of self care needs including ask me three. ANTICIPATED BARRIERS TO DISCHARGE:: None identified TRANSPORTATION:: facility w/c van PLAN:: Anticipate Alvarez will return to [facility] once medically cleared. CM will coordinate transport via facility w/c van. He will follow up with facility providers and his discharge plan of care. CM will continue to follow. PFSH All Active Problems Discharge planning issues (Acute) DVT prophylaxis (Acute) Diabetic foot ulcer (Acute) Cellulitis of left lower limb (Acute) Weight loss (Acute) UTI (urinary tract infection) (Acute) Stroke (Chronic) Dementia (Chronic) Nonspecific paroxysmal spell (Acute) Brain TIA (Acute) Stenosis of right middle cerebral artery (Acute) MRSA colonization (Acute) Type 2 diabetes mellitus (Chronic) Medical History Ambulatory dysfunction Anemia, mild BPH (benign prostatic hyperplasia) CAD (coronary artery disease) CHF (congestive heart failure) Diabetes Dizziness and giddiness E coli infection GERD (gastroesophageal reflux disease) HLD (hyperlipidemia) Hypercholesteremia Hyperglycemia Hypertension Memory changes Middle cerebral artery stenosis Mobility impaired Neuropathy Obesity Psoriasis Rash Sepsis secondary to UTI Tachy-sara syndrome Tinea corporis Urinary incontinence Surgical History H/O hernia repair H/O surgical procedure a. Aortic valve replacement 04/2013 b. left THR 10/04/2013 c. Left TKR 6-7 years ago Hx of CABG S/P appendectomy S/P AVR (aortic valve replacement) 04/2013 S/P knee replacement Social History Smoking/Tobacco Use Status: Former Tobacco Use Smoking risk assessment performed?: Yes Alcohol Intake: never Drug use: Never Substance use type: does not use Housing: assisted living facility Do you feel safe at home: Yes Do you feel safe in your relationship?: Yes Additional Social history: Current resident of [facility]
--- NOTE | 2023-01-29 11:18 | PGE_ITS ---
Date of Service Date of service: 01/29/23 Time of Service: 11:19 Assessment and Plan Assessment and plan (1) Cellulitis of left lower limb: Status: Acute Assessment and plan: continue Cefazolin 2g IV q 8 hr and vancomycin pharmacy dosing day 2 It doesn't appear to be joint involvement, though history and exam limited by his dementia. There was some concern for DVT, but POCUS non diagnostic. With very high CRP and foot ulcer present, there is some concern for osteomyelitis. xray does not suggest this, but may consider MRI for better sensitivity if response to treatment is slow. (2) Diabetic foot ulcer: Status: Acute Assessment and plan: This is unstagable at this point. Offloading. Monitor. (3) Stroke: Status: Chronic Assessment and plan: H/o cerebrovascular disease with admission 2 months ago concerning for TIA. New cerebrovascular disease was discovered on MRI, but findings were not c/w his symptoms and Dr. Fernandez treated with 30 days of DAPT followed by clopidogrel. Will continue the clopidogrel and his atorvastatin per her receommendations. (4) Type 2 diabetes mellitus: Status: Chronic Assessment and plan: His last A1c 7.2 in October without medications. Glucogon on his medication list suggests a history of hypoglycemia. Will monitor blood sugars given acute infection and treat if glucose consistently over 180. (5) CAD (coronary artery disease): Assessment and plan: No recent symptoms, statin/clopidogrel as above. (6) Dementia: Status: Chronic Assessment and plan: Monitor and try to manage behaviorally. 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 This can be a/w strep, though he seems to have it chronically. On areas on buttocks and back where there is pressure he has blanching reddish skin but this does not appear to be related to the more diffuse hot cellulitic rash on his left leg. (8) DVT prophylaxis: Status: Acute Assessment and plan: LMWH (9) Discharge planning issues: Status: Acute Assessment and plan: He can return to health and rehab once he is clearly improving and we have a plan to finish therapy. discussed with DR Yee Subjective Subjective Patient reports: no new complaints, tolerating liquids well, tolerating a regular diet and afebrile Interval history since last seen: frank draining clear yellow urine, Exam Const General: cooperative, comfortable and well developed Nutritional Appearance: well nourished and overweight Orientation: alert, awake and confused [facility] Head: normal to inspection, normocephalic and atraumatic General nose exam: external nose normal Face and sinus: normal facial exam and face symmetric Mouth: mucous membranes dry (appears dry) Eyes General: appearance normal, both eyes and all related structures (EOM intact, PERRLA) Neck Neck: normal visual inspection and full ROM Resp Effort & Inspection: normal respiratory effort, able to speak in complete sentences and no respiratory distress Cardio Rate: regular rate Rhythm: regular rhythm GI Palpation: soft Skin Rashes: rashes noted (left lower extremity from foot to thigh. significant pitting edema) Other: old healed surgical incision on left knee, denies pain to movement of left knee. Neuro General: patient alert and patient awake Cognition: abnormal cognition Gait: other (did not assess gait) Objective Last Vital Signs Temp 36.2 C L 01/29/23 08:14 Pulse 68 01/29/23 08:14 Resp 18 01/29/23 08:14 BP 136/74 01/29/23 08:14 Pulse Ox 96 01/29/23 08:14 Laboratory Results - last 24 hr 01/28/23 01/28/23 01/28/23 18:40 18:43 18:43 WBC 5.68 RBC 3.44 L Hgb 11.8 L Hct 34.2 L MCV 99 H MCH 34.3 H MCHC 34.5 RDW 13.9 Plt Count 220 MPV 10.9 Immature Gran % 0.0 Neutrophils % 85.0 Band Neutrophils % 5 Lymphocytes % 8.0 Monocytes % 2.0 Eosinophils % 0.0 Basophils % 0.0 Nucleated RBC % 0.0 Absolute Neutrophils 5.11 Absolute Lymphocytes 0.45 L Absolute Monocytes 0.11 Absolute Eosinophils 0.00 Absolute Basophils 0.00 RBC Morphology Normal PT INR VBG Lactate 4.3 H* Sodium Potassium Chloride Carbon Dioxide Anion Gap BUN Creatinine Est GFR (CKD-EPI 2020) Glucose Calcium Magnesium Total Bilirubin AST ALT Alkaline Phosphatase C-Reactive Protein Total Protein Albumin Urine Color Yellow Urine Clarity Sl Cloudy Urine pH 5.5 Ur Specific [place] 1.020 Urine Protein Trace H Urine Ketones Negative Urine Blood Trace-intact H Urine Nitrite Negative Urine Bilirubin Negative Urine Urobilinogen 0.2 Ur Leukocyte Esterase Negative Urine RBC 3-5 H Urine WBC 0-2 Ur Epithelial Cells Rare Urine Crystals Negative Urine Bacteria Negative Urine Casts Negative Urine Mucus Negative Ur Culture Indicated? No Urine Glucose 100 H COVID-19 Source SARS-CoV-2 (PCR) MRSA (TEM-PCR) 01/28/23 01/28/23 01/28/23 18:43 19:39 19:54 WBC RBC Hgb Hct MCV MCH MCHC RDW Plt Count MPV Immature Gran % Neutrophils % Band Neutrophils % Lymphocytes % Monocytes % Eosinophils % Basophils % Nucleated RBC % Absolute Neutrophils Absolute Lymphocytes Absolute Monocytes Absolute Eosinophils Absolute Basophils RBC Morphology PT 11.3 H INR 1.1 VBG Lactate Sodium 138 Potassium 3.8 Chloride 104 Carbon Dioxide 27.1 Anion Gap 6.9 BUN 17 Creatinine 1.2 Est GFR (CKD-EPI 2020) 61.52 Glucose 195 H Calcium 8.9 Magnesium 1.8 Total Bilirubin 0.6 AST 28 ALT 22 Alkaline Phosphatase 84 C-Reactive Protein > 25.00 H Total Protein 7.3 Albumin 2.4 L Urine Color Urine Clarity Urine pH Ur Specific [place] Urine Protein Urine Ketones Urine Blood Urine Nitrite Urine Bilirubin Urine Urobilinogen Ur Leukocyte Esterase Urine RBC Urine WBC Ur Epithelial Cells Urine Crystals Urine Bacteria Urine Casts Urine Mucus Ur Culture Indicated? Urine Glucose COVID-19 Source Nasal/Nares SARS-CoV-2 (PCR) Negative MRSA (TEM-PCR) 01/28/23 01/29/23 01/29/23 19:55 04:50 07:10 WBC RBC Hgb Hct MCV MCH MCHC RDW Plt Count MPV Immature Gran % Neutrophils % Band Neutrophils % Lymphocytes % Monocytes % Eosinophils % Basophils % Nucleated RBC % Absolute Neutrophils Absolute Lymphocytes Absolute Monocytes Absolute Eosinophils Absolute Basophils RBC Morphology PT INR VBG Lactate 0.8 Sodium Potassium Chloride Carbon Dioxide Anion Gap BUN Creatinine Est GFR (CKD-EPI 2020) Glucose Calcium Magnesium Total Bilirubin AST ALT Alkaline Phosphatase C-Reactive Protein Total Protein Albumin Urine Color Yellow Urine Clarity Clear Urine pH 5.5 Ur Specific [place] 1.025 Urine Protein 100 H Urine Ketones Negative Urine Blood Trace-intact H Urine Nitrite Negative Urine Bilirubin Negative Urine Urobilinogen 1.0 H Ur Leukocyte Esterase Negative Urine RBC 5-10 H Urine WBC 0-2 Ur Epithelial Cells Rare Urine Crystals Negative Urine Bacteria Moderate Urine Casts 0-2 Fine Granular Urine Mucus Negative Ur Culture Indicated? C&S Done As Ordered Urine Glucose 100 H COVID-19 Source SARS-CoV-2 (PCR) MRSA (TEM-PCR) Positive A 01/29/23 01/29/23 07:10 07:10 WBC 5.11 RBC 2.76 L Hgb 9.2 L D Hct 27.1 L MCV 98 H MCH 33.3 H MCHC 33.9 RDW 13.9 Plt Count 163 MPV 10.0 Immature Gran % 1.2 Neutrophils % 86.1 Band Neutrophils % Lymphocytes % 9.2 Monocytes % 1.0 Eosinophils % 2.3 Basophils % 0.2 Nucleated RBC % 0.0 Absolute Neutrophils 4.40 Absolute Lymphocytes 0.47 L Absolute Monocytes 0.05 L Absolute Eosinophils 0.12 Absolute Basophils 0.01 RBC Morphology PT INR VBG Lactate Sodium 137 Potassium 3.6 Chloride 105 Carbon Dioxide 23.7 Anion Gap 8.3 BUN 14 Creatinine 0.9 Est GFR (CKD-EPI 2020) 86.88 Glucose 187 H Calcium 8.5 Magnesium Total Bilirubin AST ALT Alkaline Phosphatase C-Reactive Protein Total Protein Albumin Urine Color Urine Clarity Urine pH Ur Specific [place] Urine Protein Urine Ketones Urine Blood Urine Nitrite Urine Bilirubin Urine Urobilinogen Ur Leukocyte Esterase Urine RBC Urine WBC Ur Epithelial Cells Urine Crystals Urine Bacteria Urine Casts Urine Mucus Ur Culture Indicated? Urine Glucose COVID-19 Source SARS-CoV-2 (PCR) MRSA (TEM-PCR) Time Spent with Patient Time Spent with Patient: 35-49 minutes Time was spent: preparing to see the patient(eg.review tests), obtaining and/or reviewing separately otained hiistory, ordering medications,tests, procedures and indepentently interpreting results
--- NOTE | 2023-01-29 11:31 | PT.INIE ---
Date of service: 01/29/23 Time of Service: 11:31 PT Notes Visit Reasons: Left leg cellulitis Physical Therapy Inpatient Initial Evaluation Date: 01/29/2023 Referring Doctor: Tab Becker MD PT Orders: PT CONSULT: Fall safety assessment. Exacerbation Chronic Cond Precautions: Fall.?On?contact Precautions. Activity as tolerated. Patient Profile/Admitting Diagnosis:Mansoor Pino is a 77-year-old male resident of [facility] with past medical history significant for CVA and dementia admitted due to cellulitis of left lower limb, diabetic foot ulcer, new CVA, type 2 diabetes mellitus, CAD, dementia, and psoriasis. PMHX: All Active Problems? Discharge planning issues (Acute) DVT prophylaxis (Acute) Diabetic foot ulcer (Acute) Cellulitis of left lower limb (Acute) Weight loss (Acute) UTI (urinary tract infection) (Acute) Stroke (Chronic) Dementia (Chronic) Nonspecific paroxysmal spell (Acute) Brain TIA (Acute) Stenosis of right middle cerebral artery (Acute) MRSA colonization (Acute) Type 2 diabetes mellitus (Chronic) Medical History? Ambulatory dysfunction Anemia, mild BPH (benign prostatic hyperplasia) CAD (coronary artery disease) CHF (congestive heart failure) Diabetes Dizziness and giddiness E coli infection GERD (gastroesophageal reflux disease) HLD (hyperlipidemia) Hypercholesteremia Hyperglycemia Hypertension Memory changes Middle cerebral artery stenosis Mobility impaired Neuropathy Obesity Psoriasis Rash Sepsis secondary to UTI Tachy-sara syndrome Tinea corporis Urinary incontinence Surgical History? H/O hernia repair H/O surgical procedure a.? Aortic valve replacement 04/2013 b.? left THR 10/04/2013 c.? Left TKR 6-7 years ago Hx of CABG S/P appendectomy S/P AVR (aortic valve replacement) 04/2013S/P knee replacement Social History/Home Situation: SNF resident. Equipment Owned/DME: FWW,? wheelchair Subjective: Highly protective of left lower extremity due to pain. Verbalized being scared of moving. Objective: General Observation: Resting in bed.? Andres catheter in place. Erythema and swelling to left leg and foot. Intact boggy blister/wound on left heel. Mental Status: Alert and oriented as to person. Able to follow single-step commands.? Delayed movement initiation, slowed movement execution. Pain: Moderate to severe pain in L LE when moved Vital Signs: Closely monitored by nursing staff ROM: Right Upper Extremity: ? Shoulder Flexion WFL. Shoulder abduction WFL. Elbow flexion WFL. Wrist flexion WFL. Functional opening and closing of hand WFL. Left Upper Extremity:? Shoulder Flexion WFL. Shoulder abduction WFL. Elbow flexion WFL. Wrist flexion WFL. Functional opening and closing of hand WFL. Right Lower Extremity: Hip flexion WFL. Hip abduction WFL. Knee flexion WFL. Ankle dorsiflexion to neutral only. Ankle plantarflexion WFL. Left Lower Extremity: Hip flexion WFL. Hip abduction WFL. Knee flexion WFL. Ankle dorsiflexion to neutral only. Ankle plantarflexion WFL. Strength: Right Upper Extremity: Grossly 3/5 Left Upper Extremity: Grossly 3/5 Right Lower Extremity: Grossly 3/5 Left Lower Extremity: Grossly 3/5 Bed Mobility/Transfers: Supine to sit moderate assist of 2 with HOB at 30 degrees, maximal cueing due to impaired movement initiation/execution Sit to stand moderate assist of 2 using STEDY lift, maximal cueing due to impaired movement initiation/execution Sit to stand unable to stand up using FWW, patient pushes back strongly, unable to shift weight anteriorly to lean forward despite heavy verbal and tactile cueing Stand to sit moderate assist of 2 using STEDY lift, maximal cueing due to impaired movement initiation/execution Bed to reclining chair moderate assist of 2 using STEDY lift, maximal cueing due to impaired movement initiation/execution Gait: Unable and unsafe. Impaired ability to initiate/excuet/complete movement despote heavy cueing Balance: Static Sitting: Good Dynamic Sitting: Fair Static Standing: Fair Dynamic Standing: Fair Special Tests: Mobility Limitations Standardized Measure [facility] AM-PAC 6 clicks Basic Mobility Inpatient Short Form: Raw Score: 9 ? CMS Score: 81% deficit ? Rapid Alternating movement: Unable to test 4-Stage Balance Test: Unableand unsafe to test Informed Consent/Education:? Patient was instructed in purpose of PT consult and plan of care.? Patient is okay with PT working with him. ASSESSMENT: Delayed to absent movement initiation, execution, and completion resulting from previous CVAs/TIAs and dementia. Appears to be very anxious about moving. Unable to lean forward, pushes back too much making it unsafe to stand him up. Use of STEDY lift to ensure safety of patient and caregivers until PT clears use of FWW. Unable to follow with weight bearing precaution to avoid undue pressure in heel, may benefit from heel support device under slipper socks when transferring via STEDY to avoid adding insult to boggy diabetic wound on L heel. Patient presents with clinical signs and symptoms consistent with current/admitting diagnoses that have resulted to mobility limitations, gait instability, generalized weakness, and overall ADL decline as demonstrated by the following impairment level findings: 1.? Decreased strength to B UE/LE major muscle groups 2.? Impaired sitting/standing balance 3.? Impaired activity tolerance 4.? Cellulitis in L leg and foot Impairments are contributing to the following functional limitations: 1.? Decline in bed mobility skills 2.? Decline in transfer skills 3.? Difficulty with ambulation without assistive device and physical assistance 4.? Increased completion time for mobility ADL performance 5.? Increased risk for falls 6.? Difficulty with managing steps alone safely Patient is assessed as a 09170 high complexity based on the following: History: 77-year-old male with past medical history as indicated above Examination: Demonstrable impairment in strength, balance, and mobility level with underlying impairments and functional limitations as exhibited above as well as deficit score of 81% utilizing the [facility] Mobility Inpatient Short Form Presentation: Evolving Decision Makin high complexity Goals: Goals X1 week 1. Supine-Sit supervision 2. Sit-Supine supervision 3. Sit-Stand contact guard assist with FWW 4. Stand-Sit contact guard assist with FWW 5. Bed-Chair contact guard assist with FWW 6. Chair-Bed contact guard assist with FWW 7. Contact guard assist with gait on level surface with use of FWW for at least 50 feet without report of pain nor dyspnea 8. Good static and dynamic standing balance/tolerance Plan of Care/Treatment Plan: 1-2x/day, 7 days/week x 1 week. Plan of care has been reviewed with the [employer]ULT [employer] providing the service under Physical Therapy direction. Initiate Physical Therapy intervention for pain management as needed, strengthening, bed mobility, transfers, gait, stairs, balance training, and use of assistive device. DISCHARGE RECOMMENDATIONS: [] ? Home with no services [] [] ? Home with services [specify] [] ? Home with outpatient PT [] [] ? SNF for continued rehabilitation [] [] ? [facility] [] [] ? SNF versus LTC based on ability to participate and progress [] [X] ? Return to SNF whenever cleared by hospitalist TREATMENT CODE/TIME: 69816 x 25 minutes (1 unit),? 03820 x 12 minutes (1 unit) beginning at 11:31 AM. Thank you for the opportunity to participate in the care of this patient. Lorna Traore PT, DPT, CLT [facility] [place], [place]
[2023-01-29] MEDS: Acetaminophen 650 MG SUPP PR ×2 (11:42→20:46)
[2023-01-29 14:44] VITALS: BP 159/79; PULSE 69; RESP 18; TEMP 36.2; O2SAT 99
--- NOTE | 2023-01-29 16:13 | PTTR_ITS ---
Date of service: 01/29/23 Time of Service: 15:54 PT Notes Visit Reasons: Left leg cellulitis Inpatient Physical Therapy Treatment Note [facility] Date: 01/29/23 PRECAUTIONS: Fall, standard, activity as tolerated, CONTACT PRECAUTIONS SUBJECTIVE: Patient reports feeling ok. OBJECTIVE: Patient arrives back from testing downstairs via rney. Melania Yates and Bing present, request assistance with transfer from [facility] to bed. ? PAIN: LLE in excruciating pain, wound open and seeping. VITALS: closely monitored by nursing staff ??? Therapeutic Activities ([id number]): Direct one-on-one instruction in dynamic activities to improve functional performance. ? BED MOBILITY/TRANSFERS? Rolling L/R: min assist of 2 Supine-sit: not assessed? Sit-supine: not assessed ? Sit-stand: not assessed ? Stand-sit: not assessed ? Bed-Chair: not assessed ? Chair-bed: not assessed Attempted to engage patient in participating in his transfer from [facility] to bed. Patient unable to initiate movement. Transfer was dependent / max of 3. Posi tioning was also dependent, although with enough additional time and cueing patient may have been able to participate more in his positioning in bed. Provided skilled cues and instruction on performance and technique throughout. ASSESSMENT:? Patient cries out in pain several times throughout treatment session, anytime anyone or anything bumps the lower left leg or especially the foot. PLAN: Continue global strengthening per plan of care until patient is medically cleared for discharge. TREATMENT CODE/TIME: 17 minutes beginning at 15:54
[2023-01-29] MEDS: VANCOMYCIN/WATER (PEG) 1.5 GM/300 ML BAG IV (17:34)
[2023-01-29] MEDS: Atorvastatin 40 MG TAB PO (20:45)
[2023-01-29 22:57] VITALS: BP 124/71; PULSE 69; RESP 16; TEMP 36.4; O2SAT 97
--- NOTE | 2023-01-30 | DI.US_ITS ---
APPROVED REPORT EXAM: Comprehensive 2D, Doppler, and color-flow Echocardiogram Patient Location: In-Patient Room/Bed: [facility] [employer]: Malaika Kerr RDCS (AE) Indications: Gram positive bacteremia, Limited follow up exam Other Information Study Quality: Adequate. Technically limited study due to inability to position patient exam done sup ine bedside. Conclusion Normal left ventricular wall thickness and chamber size. Ejection fraction is 55% Normal right ventricular size and systolic function Both atria are normal in size Patient has a bioprosthetic aortic valve which is normal in appearance There is no additional structural or hemodynamically significant valvular disease No valvular vegetations are identified Wall motion Left Ventricle The overall left ventricular systolic function appears normal. There is normal LV segmental wall oliver on. LVEF is 55%. Right Ventricle Right ventricle is grossly normal in size. Right ventricular systolic function is grossly normal. Aortic Valve Bioprosthetic aortic valve No aortic regurgitation is present. There is no aortic valvular vegetation . Mitral Valve The mitral valve is normal in structure. There is no evidence of mitral valve vegetations. Tricuspid Valve The tricuspid valve is normal in structure. There is no tricuspid valve vegetations. Pulmonic Valve The pulmonary valve is normal in structure. There is no pulmonic valve vegetations. Pericardium There is no pericardial effusion.
[2023-01-30] MEDS: ceFAZolin 2 GM/50 ML BAG IVPB ×3 (06:00→21:29)
[2023-01-30] MEDS: Insulin Aspart 300 UNITS/3 ML PEN SC ×3 (08:21→16:43)
[2023-01-30] MEDS: Magnesium Oxide 400 MG TAB PO ×2 (08:22→21:29)
[2023-01-30] MEDS: Clopidogrel 75 MG TAB PO (08:22)
[2023-01-30] MEDS: Multivitamin TAB 1 TAB PO (08:23)
[2023-01-30] MEDS: metFORMIN 500 MG TAB 1000 MG PO ×2 (08:23→16:43)
[2023-01-30 08:48] VITALS: BP 147/75; PULSE 73; TEMP 35.7; O2SAT 98
[2023-01-30] MEDS: Enoxaparin 40 MG/0.4 ML SYR SC (08:52)
[2023-01-30 08:53] LABS: HGB 9.8 g/dL (13.5-17.5); MCH 33.3 pg (27.0-33.0); MCHC 33.8 % (32.0-36.0); MCV 99 fL (80-95); MPV 10.7 fL (8.0-11.0); Platelet Count 200 10^3/uL (130-400); RBC 2.94 10^6/uL (4.36-5.78); RDW 13.7 % (11.8-14.1); RDW-SD 50.2 fL; WBC 4.26 10^3/uL (4.4-10.8)
[2023-01-30 08:55] LABS: Absolute Eosinophil Count 0.04 10^3/uL (0.0-0.7); Absolute Lymphocyte Count 0.77 10^3/uL (1.2-3.4); Absolute Monocyte Count 0.04 10^3/uL (0.1-0.8); Absolute Neutrophil Count 3.41 10^3/uL (1.2-6.7); Bands % 1
[2023-01-30 08:56] LABS: Anisocytosis 1+; Diff Comment Manual Differential
[2023-01-30 08:58] LABS: ALT 28 U/L (16-63); AST 36 U/L (15-37); Albumin 2.1 g/dL (3.4-5.0); Alkaline Phosphatase 95 U/L (46-116); Anion Gap 8.2 mmol/L (3-11); BUN 12 mg/dL (7-18); Bilirubin, Total 0.4 mg/dL (0.2-1.0); CO2 24.8 mmol/L (21.0-32.0); Calcium 8.4 mg/dL (8.5-10.1); Chloride 104 mmol/L (98-107); Estimated GFR 76.56 (mL/min/1.73m2); Glucose 166 mg/dL (74-106); Potassium 3.7 mmol/L (3.5-5.1); Sodium 137 mmol/L (136-145); Total Protein 6.8 g/dL (6.4-8.2)
--- NOTE | 2023-01-30 10:45 | PDOC.CMPRO ---
Date of service: 01/30/23 Time of Service: 10:45 Care Management Progress Note Progress Note Text Progress Note Text: S/O: Alvarez was sleeping when CM attempted to meet with him. Per report, he is on IV antibiotics for the cellulitis. There is some concern for osteomyelitis due to his high CPR and foot ulcer present on admission; the provider may order an MRI if he doesn't respond to treatment well. He will likely remain acute, on IV antibiotics over the weekend; CM will communicate with the facility where he resides. CM will continue to follow. A: Alvarez is a 77 year old male admitted to [facility] on 01/28/23 for left leg cellulitis. P: Anticipate Alvarez will return to [facility] once medically cleared. CM will coordinate transport via facility w/c van. He will follow up with facility providers and his discharge plan of care. CM will continue to follow.
[2023-01-30] MEDS: Normal Saline Flush 10 ML SYR IVP (12:42)
[2023-01-30] MEDS: VANCOMYCIN/WATER (PEG) 1.5 GM/300 ML BAG IV (12:42)
--- NOTE | 2023-01-30 14:37 | PGE_ITS ---
Date of Service Date of service: 01/30/23 Time of Service: 14:37 Assessment and Plan Assessment and plan (1) Cellulitis of left lower limb: Status: Acute Assessment and plan: continue Cefazolin 2g IV q 8 hr and vancomycin pharmacy dosing day 3 one blood culture positive for gram pos cocci, second bottle remains negative, re-drawn this morning with results pending. echo shows no valvular vegetations has been hemodynamically stable. It doesn't appear to be joint involvement, though history and exam limited by his dementia. There was some concern for DVT, but POCUS non diagnostic, formal US negative for DVT. With very high CRP and foot ulcer present, there is some concern for osteomyelitis. xray does not suggest this, but may consider MRI for better sensitivity if response to treatment is slow. (2) Diabetic foot ulcer: Status: Acute Assessment and plan: This is unstagable at this point. Offloading. Monitor. (3) Stroke: Status: Chronic Assessment and plan: H/o cerebrovascular disease with admission 2 months ago concerning for TIA. New cerebrovascular disease was discovered on MRI, but findings were not c/w his symptoms and Dr. Fernandez treated with 30 days of DAPT followed by clopidogrel. Will continue the clopidogrel and his atorvastatin per her receommendations. (4) Type 2 diabetes mellitus: Status: Chronic Assessment and plan: His last A1c 7.2 in October without medications. Glucogon on his medication list suggests a history of hypoglycemia. Will monitor blood sugars given acute infection and treat if glucose consistently over 180. (5) CAD (coronary artery disease): Assessment and plan: No recent symptoms, statin/clopidogrel as above. (6) Dementia: Status: Chronic Assessment and plan: Monitor and try to manage behaviorally. 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 This can be a/w strep, though he seems to have it chronically. On areas on buttocks and back where there is pressure he has blanching reddish skin but this does not appear to be related to the more diffuse hot cellulitic rash on his left leg. (8) DVT prophylaxis: Status: Acute Assessment and plan: LMWH (9) Discharge planning issues: Status: Acute Assessment and plan: He can return to health and rehab once he is clearly improving and we have a plan to finish therapy. discussed with DR Yee Subjective Subjective Patient reports: no new complaints, tolerating liquids well, tolerating a regular diet and afebrile Interval history since last seen: minimal improvement overnight in redness and swelling Exam Const General: cooperative, comfortable and well developed Nutritional Appearance: well nourished and overweight Orientation: alert, awake and confused [facility] Head: normal to inspection, normocephalic and atraumatic General nose exam: external nose normal Face and sinus: normal facial exam and face symmetric Mouth: mucous membranes dry (appears dry) Eyes General: appearance normal, both eyes and all related structures (EOM intact, PERRLA) Neck Neck: normal visual inspection and full ROM Resp Effort & Inspection: normal respiratory effort, able to speak in complete sentences and no respiratory distress Cardio Rate: regular rate Rhythm: regular rhythm GI Palpation: soft Skin Rashes: rashes noted (left lower extremity from foot to thigh. significant pitting edema) Other: old healed surgical incision on left knee, denies pain to movement of left knee. Neuro General: patient alert and patient awake Cognition: abnormal cognition Gait: other (did not assess gait) Objective Last Vital Signs Temp 35.7 C L 01/30/23 08:48 Pulse 73 01/30/23 08:48 Resp 16 01/29/23 22:57 BP 147/75 H 01/30/23 08:48 Pulse Ox 98 01/30/23 08:48 Laboratory Results - last 24 hr 01/30/23 06:20 WBC 4.26 L RBC 2.94 L Hgb 9.8 L Hct 29.0 L MCV 99 H MCH 33.3 H MCHC 33.8 RDW 13.7 Plt Count 200 MPV 10.7 Immature Gran % 0.0 Neutrophils % 79.0 Band Neutrophils % 1 Lymphocytes % 18.0 Monocytes % 1.0 Eosinophils % 1.0 Basophils % 0.0 Nucleated RBC % 0.0 Absolute Neutrophils 3.41 Absolute Lymphocytes 0.77 L Absolute Monocytes 0.04 L Absolute Eosinophils 0.04 Absolute Basophils 0.00 Anisocytosis 1+ Sodium 137 Potassium 3.7 Chloride 104 Carbon Dioxide 24.8 Anion Gap 8.2 BUN 12 Creatinine 1.0 Est GFR (CKD-EPI 2020) 76.56 Glucose 166 H Calcium 8.4 L Total Bilirubin 0.4 AST 36 ALT 28 Alkaline Phosphatase 95 Total Protein 6.8 Albumin 2.1 L Time Spent with Patient Time Spent with Patient: 25-34 minutes Time was spent: preparing to see the patient(eg.review tests), obtaining and/or reviewing separately otained hiistory, ordering medications,tests, procedures and indepentently interpreting results
[2023-01-30 15:33] VITALS: BP 135/73; PULSE 77; RESP 18; TEMP 36.2; O2SAT 98
--- NOTE | 2023-01-30 17:08 | PTTR_ITS ---
Date of service: 01/30/23 PT Notes Visit Reasons: Left leg cellulitis Inpatient Physical Therapy Treatment Note [facility] ?Date: 01/30/23 ?PRECAUTIONS: Fall, standard, activity as tolerated, CONTACT PRECAUTIONS ?SUBJECTIVE: Patient reports nursing a bum foot. ?OBJECTIVE: Supine in bed, agreeable to therapy. ?PAIN: Yes, LLE is excruciating. ?VITALS: monitored by nursing staff ?BED MOBILITY/TRANSFERS? Rolling L/R: dependent Supine-sit: dependent ? Sit-supine: dependent ? Sit-stand: unable ? Stand-sit: unable ? Bed-Chair: unable ? Chair-bed: unable ?Therapeutic Exercises (91110o0): Direct one-on-one instruction in therapeutic exercises to develop strength, endurance, range of motion and flexibility. ? Exercises: 2x10 each of the following: * RLE toe scrunches * RLE ankle pumps - max verbal and tactile cueing, several quick-stretch cues to recruit / facilitate muscle activation * RLE knee to chest AAROM - only achieves ~20 degrees of hip flexion, 15 degrees of knee flexion with assistance and verbal cueing, tactile facilitation. * RLE heel slide AAROM - patient achieves ~30 degrees of knee flexion Provided skilled instruction in proper exercise performance Provided skilled manual cues to facilitate proper muscle recruitment and/or form as noted above. ASSESSMENT:? Patient tolerated therapy well, no c/o increased pain, no SOB. Patient reports feeling eager to participate again tomorrow. States that his eventual goal is to get back to walking. PLAN: Continue global strengthening per plan of care, specifically facilitating independent initiation of movement and improved equilibrium. TREATMENT CODE/TIME: 24 minutes beginning at 14:10
[2023-01-30] MEDS: Atorvastatin 40 MG TAB PO (21:29)
[2023-01-31 00:14] VITALS: BP 152/55; PULSE 79; RESP 18; TEMP 37.7; O2SAT 94
[2023-01-31] MEDS: ceFAZolin 2 GM/50 ML BAG IVPB ×2 (05:57→20:31)
[2023-01-31 05:59] VITALS: BP 146/82; PULSE 75; RESP 18; TEMP 37; O2SAT 96
[2023-01-31] MEDS: VANCOMYCIN/WATER (PEG) 1.5 GM/300 ML BAG IV (06:38)
[2023-01-31 07:58] VITALS: BP 151/78; PULSE 71; RESP 17; TEMP 36.5; O2SAT 95
--- NOTE | 2023-01-31 08:37 | CMPROGNOTE_ITS ---
Date of service: 01/31/23 Time of Service: 08:37 Care Management Progress Note Progress Note Text Progress Note Text: S/O: Alvarez was being seen by a refractory tile helper when CM attempted to meet with him. Later, he was sleeping. CM spoke to his RN, who stated that he is doing ok today, and that his daughter visited him earlier today. Per report, he remains on IV antibiotics, which will continue through the weekend. CM will continue to follow. A: Alvarez is a 77 year old male admitted to [facility] on 01/28/23 for left leg cellulitis. P: Anticipate Alvarez will return to [facility] once medically cleared. CM will coordinate transport via facility w/c van. He will follow up with facility providers and his discharge plan of care. CM will continue to follow.
[2023-01-31] MEDS: Insulin Aspart 300 UNITS/3 ML PEN SC ×3 (08:54→17:01)
[2023-01-31] MEDS: metFORMIN 500 MG TAB 1000 MG PO ×2 (08:55→17:08)
[2023-01-31] MEDS: Clopidogrel 75 MG TAB PO (08:55)
[2023-01-31] MEDS: Enoxaparin 40 MG/0.4 ML SYR SC (08:55)
[2023-01-31] MEDS: Multivitamin TAB 1 TAB PO (08:55)
[2023-01-31] MEDS: Magnesium Oxide 400 MG TAB PO ×2 (08:55→20:30)
--- NOTE | 2023-01-31 11:16 | PGE_ITS ---
Date of Service Date of service: 01/31/23 Time of Service: 11:16 Assessment and Plan Assessment and plan (1) Cellulitis of left lower limb: Status: Acute Assessment and plan: continue Cefazolin 2g IV q 8 hr and vancomycin pharmacy dosing day 4 one blood culture positive for gram pos cocci, second bottle remains negative, re-drawn this morning with results pending. echo shows no valvular vegetations has been hemodynamically stable. It doesn't appear to be joint involvement, though history and exam limited by his dementia. There was some concern for DVT, but POCUS non diagnostic, formal US negative for DVT. With very high CRP and foot ulcer present, there is some concern for osteomyelitis. xray does not suggest this, but may consider MRI for better sensitivity if response to treatment is slow. (2) Diabetic foot ulcer: Status: Acute Assessment and plan: This is unstagable at this point. Offloading. Monitor. wound care consult recommendations for sales promotion officer consultations (3) Stroke: Status: Chronic Assessment and plan: H/o cerebrovascular disease with admission 2 months ago concerning for TIA. New cerebrovascular disease was discovered on MRI, but findings were not c/w his symptoms and Dr. Fernandez treated with 30 days of DAPT followed by clopidogrel. Will continue the clopidogrel and his atorvastatin per her receommendations. (4) Type 2 diabetes mellitus: Status: Chronic Assessment and plan: His last A1c 7.2 in October without medications. Glucogon on his medication list suggests a history of hypoglycemia. Will monitor blood sugars given acute infection and treat if glucose consistently over 180. (5) CAD (coronary artery disease): Assessment and plan: No recent symptoms, statin/clopidogrel as above. (6) Dementia: Status: Chronic Assessment and plan: Monitor and try to manage behaviorally. 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 This can be a/w strep, though he seems to have it chronically. On areas on buttocks and back where there is pressure he has blanching reddish skin but this does not appear to be related to the more diffuse hot cellulitic rash on his left leg. (8) DVT prophylaxis: Status: Acute Assessment and plan: LMWH (9) Discharge planning issues: Status: Acute Assessment and plan: He can return to health and rehab once he is clearly improving and we have a plan to finish therapy. discussed with DR Segal Subjective Subjective Patient reports: no new complaints, pain is less, tolerating liquids well, tolerating a regular diet and afebrile Exam Const General: cooperative, comfortable and well developed Nutritional Appearance: well nourished and overweight Orientation: alert, awake and confused [facility] Head: normal to inspection, normocephalic and atraumatic General nose exam: external nose normal Face and sinus: normal facial exam and face symmetric Mouth: mucous membranes dry (appears dry) Eyes General: appearance normal, both eyes and all related structures (EOM intact, PERRLA) Neck Neck: normal visual inspection and full ROM Resp Effort & Inspection: normal respiratory effort, able to speak in complete sentences and no respiratory distress Cardio Rate: regular rate Rhythm: regular rhythm GI Palpation: soft Skin Rashes: rashes noted (left lower extremity from foot to thigh. significant pitting edema) Other: old healed surgical incision on left knee, denies pain to movement of left knee. Neuro General: patient alert and patient awake Cognition: abnormal cognition Gait: other (did not assess gait) Objective Last Vital Signs Temp 36.5 C 01/31/23 07:58 Pulse 71 01/31/23 07:58 Resp 17 01/31/23 07:58 BP 151/78 H 01/31/23 07:58 Pulse Ox 95 01/31/23 07:58 Time Spent with Patient Time Spent with Patient: 25-34 minutes Time was spent: preparing to see the patient(eg.review tests), obtaining and/or reviewing separately otained hiistory, ordering medications,tests, procedures and indepentently interpreting results
[2023-01-31 11:59] VITALS: BP 137/77; PULSE 70; RESP 18; TEMP 35.7; O2SAT 97
--- NOTE | 2023-01-31 13:57 | PTTR_ITS ---
Date of service: 01/31/23 Time of Service: 10:16 PT Notes Visit Reasons: Left leg cellulitis Inpatient Physical Therapy Treatment Note [facility] Date: 01/31/23 PRECAUTIONS: Fall, standard, activity as tolerated, CONTACT PRECAUTIONS ?SUBJECTIVE: Patient very alert, conversational, responds appropriately. AFTERNOON: Patient not responsive to verbal or tactile cues. Appears awake, much longer delays before responding if he responds at all. OBJECTIVE: Elderly male supine in bed with swollen and erythematic left foot and lower leg. Agreeable to therapy. MARKETING ASSISTANT MANAGER Truyd present. AFTERNOON: Patient appears the same, no MARKETING ASSISTANT MANAGER? PAIN: Yes, especially when anything contacts the left lower leg or foot. ?VITALS: monitored by nursing staff Therapeutic Activities (69440m4): Direct one-on-one instruction in dynamic activities to improve functional performance. ?? BED MOBILITY/TRANSFERS? Rolling L/R: min assist of one AFTERNOON: max assist of 2 Supine-sit: Max assist of 2. Patient able to independently maintain sitting balance for ~3 minutes. AFTERNOON: unable ? Sit-supine: Max assist of 2 AFTERNOON: unable ? Sit-stand: unable ? Stand-sit: unable ? Bed-Chair: unable ? Chair-bed: unable Provided skilled cues and instruction on performance and technique throughout. Therapeutic Exercises ([id number]): Direct one-on-one instruction in therapeutic exercises to develop strength, endurance, range of motion and flexibility. ? Exercises: Right leg only * heel slides, 1x10 assisted * SAQ's, 1x10 assisted * Knee to chest, 1x5 assisted Provided skilled instruction in proper exercise performance Provided skilled manual cues to facilitate proper muscle recruitment and/or form. ASSESSMENT:? Patient tolerated therapy well, reports that it felt good to get up and moving. AFTERNOON: Patient appears to tolerate therapy, no grimacing, no groaning, no signs of increased pain. Patient makes no report. PLAN: Continue global strengthening until patient is medically cleared for discharge. TREATMENT CODE/TIME: 20 minutes beginning at 11:06 and 20 minutes beginning at 14:58 for a total of 40 minutes today.
--- NOTE | 2023-01-31 15:23 | WOUNDCONS ---
Date of service: 01/31/23 Time of Service: 14:00 Wound Initial Evaluation Narrative Narrative: Patient is a 77 yom, he is a patient of health and rehab. He presents to the ed with Left lower extremity cellulitis. Patient has no known allergies, past medical hx of CVA, DM2, CAD, Dementia, psoriasis. He is alert to self only, very pleasant. He denied pain or sob. However pain was noted with palpation and movement of the affected extremity. With assessment. a DTI was noted on the left heel. Staff here have been trying to keep the affected area elevated. Patient was unable to provide consent. Daughter, whom is the DPOA, is contacted and gives witnessed verbal consent. Labs, H&P, and other pertinent were reviewed. Wound Left Lower Tib/Fib(lower leg): Wound Type: Partial Thickness and Other (celluitis) Wound General Appearance: Reddened Wound Bed Greatest Portion: Red (Granulation) Wound Surrounding Tissue Appearance: Bright Red Percent of Wound Bed Granulated/Red: 100 Wound Length: 12 cm Wound Width: 18 cm Wound Depth: 0.1 cm Wound Drainage Amount: None Wound Drainage Odor: None/Absent Wound Topical Solution/Irrigant: Saline Irrigant Wound Debridement Method: Gauze Wound Debridement Result: Other (no change) left heel: Wound Type: Deep Tissue Injury (DTI) Wound General Appearance: Clean/Dry Wound Bed Greatest Portion: Other (unstageable) Wound Surrounding Tissue Appearance: Purple Wound Length: 4.5 cm Wound Width: 6 cm Wound Drainage Amount: None Wound Drainage Odor: None/Absent Wound Drainage Description: No drainage Wound Topical Solution/Irrigant: Saline Irrigant Wound Debridement Method: Gauze Wound Debridement Result: Other Wound Debridement Amount of Tissue Removed: None Circulation, Sensation, Motion Edema Degree: 4+ Peripheral Pulse Strength: Absent (found with doppler) Capillary Refill: Less than 3 seconds Sensation Description: Within Normal Limits and Pain (with any movement and palpation) Skin Temperature: Hot Skin Color: Erythema RONNIE Comment:: patient could not tolerate Pain Pain Level: 10 Pain Scale Used: Visual Analog Scale 0-10 Pain Description: Sharp and Acute Pain Duration (Hours): 0 Pain Duration/Frequency: With Movement and With Palpation Additional Other Comments: patient was comfortable as soon as movement was stopped Wound Summary Wound Summary: Left lower leg is clean and closed over. No open areas of skin were noted. 4 + edema and very warm to the touch. Empiric ABX and keeping extremity clean , dry and elevated. Left Heel. DTI, Will ask for podiatry consult, in the interim, offload pressure, and paint daily with betadine. Photo Photo: Treatment/Dressing Change Topicals/Ointments: Other (betadine) Cleanse With: Saline Dressing Types: Other (none) Dressing Comment: open to air and elevate Nutrition Education Reviewed Nutrition Education: No Note: patient unable to comprehend Recomendation Recomendation:: Left leg. Wash with Soap and water, Pat dry, Keep elevated. Perform daily. Left heel. Wash with soap and water, pat dry. [place] blistered area with Betadine daily. Must keep elevated off bedding. Offload pressure on entire body to prevent further skin breakdown. Physcian/Nurse Practioner Notified: Yes Referrals: Podiatry Treatment Time Time Total Time Spent with Patient: 35 minutes Patient Will be Seen Weekly Treatment: daily For: For:: 1 week
--- NOTE | 2023-01-31 15:41 | CHAPLAIN ---
Alvarez was resting in bed when I visited. He had someone with him, his daughter maybe. They were both pleasant. Alvarez said he was feeling a bit better. The visitor said he seemed more tired today. I explained my role and offered support.
[2023-01-31] MEDS: Atorvastatin 40 MG TAB PO (20:29)
[2023-01-31] MEDS: Linezolid 600 MG TAB PO (20:30)
[2023-01-31 20:33] VITALS: BP 115/72; PULSE 83; RESP 18; TEMP 36.7
[2023-02-01] MEDS: ceFAZolin 2 GM/50 ML BAG IVPB (05:37)
[2023-02-01 05:38] VITALS: BP 153/80; PULSE 75; RESP 18; TEMP 36
[2023-02-01 07:15] LABS: HCT 30.1 % (40.0-50.0); HGB 10.2 g/dL (13.5-17.5); MCH 33.2 pg (27.0-33.0); MCHC 33.9 % (32.0-36.0); MCV 98 fL (80-95); MPV 10.2 fL (8.0-11.0); Platelet Count 208 10^3/uL (130-400); RBC 3.07 10^6/uL (4.36-5.78); RDW 13.7 % (11.8-14.1); RDW-SD 49.2 fL
[2023-02-01 07:17] VITALS: BP 148/78; PULSE 87; RESP 18; TEMP 36.2; O2SAT 95
[2023-02-01] MEDS: Insulin Aspart 300 UNITS/3 ML PEN SC ×3 (08:09→16:47)
[2023-02-01] MEDS: metFORMIN 500 MG TAB 1000 MG PO ×2 (08:09→16:47)
[2023-02-01] MEDS: Magnesium Oxide 400 MG TAB PO ×2 (08:09→19:24)
[2023-02-01] MEDS: Clopidogrel 75 MG TAB PO (08:09)
[2023-02-01] MEDS: Linezolid 600 MG TAB PO ×2 (08:09→19:24)
[2023-02-01] MEDS: Enoxaparin 40 MG/0.4 ML SYR SC (08:09)
[2023-02-01] MEDS: Multivitamin TAB 1 TAB PO (08:09)
--- NOTE | 2023-02-01 09:11 | PGE_ITS ---
Date of Service Date of service: 02/01/23 Time of Service: 09:11 Assessment and Plan Assessment and plan (1) Cellulitis of left lower limb: Status: Acute Assessment and plan: continue Cefazolin 2g IV q 8 hr and vancomycin pharmacy dosing day 3 one blood culture positive for gram pos cocci, second bottle remains negative, re-drawn this morning with results pending. echo shows no valvular vegetations has been hemodynamically stable. It doesn't appear to be joint involvement, though history and exam limited by his dementia. There was some concern for DVT, but POCUS non diagnostic, formal US negative for DVT. With very high CRP and foot ulcer present, there is some concern for osteomyelitis. xray does not suggest this, but may consider MRI for better sensitivity if response to treatment is slow. (2) Diabetic foot ulcer: Status: Acute Assessment and plan: This is unstagable at this point. Offloading. Monitor. wound care consult recommendations for meat counter worker consultations Podiatry consult ordered (3) Stroke: Status: Chronic Assessment and plan: H/o cerebrovascular disease with admission 2 months ago concerning for TIA. New cerebrovascular disease was discovered on MRI, but findings were not c/w his symptoms and Dr. Fernandez treated with 30 days of DAPT followed by clopidogrel. Plan remains the same Will continue the clopidogrel and his atorvastatin per her recommendations. (4) Type 2 diabetes mellitus: Status: Chronic Assessment and plan: His last A1c 7.2 in October without medications. Glucagon on his medication list suggests a history of hypoglycemia. Will monitor blood sugars given acute infection and treat if glucose consistently over 180. Glucose 166 this AM (5) CAD (coronary artery disease): Assessment and plan: No recent symptoms. We will continue statin/clopidogrel as above. 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 This can be a/w strep, though he seems to have it chronically. We will continue to monitor. Previously seen areas on buttocks and back where there is pressure he has blanching reddish skin but this does not appear to be related to the more diffuse hot cellulitic rash on his left leg. We will continue repositioning as per nursing protocol (8) DVT prophylaxis: Status: Acute Assessment and plan: We will continue Lovenox (9) Discharge planning issues: Status: Acute Assessment and plan: He can return to health and rehab once he is clearly improving and we have a plan to finish therapy. 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, covers other GP pathogens for skin and soft tissue infections and blood cultures on the 01/28 resulted as staph Capitis; could be continued at the SNF when ready for discharge as per clinical sign of improvement discussed with DR Segal Subjective Subjective Patient reports: no new complaints, feels better, still having pain (The patient reports that pain to left foot is well manage with current pain medicine regimen), pain is less (Pain was and /10 after pain medicine administration), tolerating liquids well, tolerating a regular diet, voiding w/o difficulty (frank), bowel movement, shortness of breath and afebrile; denies flatus, diarrhea, nausea or vomiting Exam Narrative Exam Narrative: Constitutional The patient is lying in bed comfortable and cooperative during the interview. The patient is without acute distress and is obese HENMT: Head is atraumatic, normocephalic, no lymphadenopathy. Facial structures with normal appearance Eyes: Well aligned, intact ROM Neck: no meningeal signs Neuro:alert and oriented to self, but confused otherwise in place time and situation. No neurological focal deficit, PERRLA Chest:Chest is symmetrical and normal appearance Resp: Normal respiratory pattern, speaks in short sentences, unlabored breathing, clear lung bilaterally Cardio: regular rhythm, S1, S2, left LE is swollen, red with cap refill around 4 sec., no paresthesia, dorsal pulse thready GI: Abdomen is not distended, soft and non tender, bowel sounds are present : no bladder distension Back/spine/Pelvis: No back tenderness Integumentary: LLE is erythematous and skin is opened but covered by DCI dressing Extremities:Weak LLE Psych: RASS 0, sad mood and flat guarded then more openedl affect. Objective Last Vital Signs Temp 36.2 C L 02/01/23 07:17 Pulse 87 02/01/23 07:17 Resp 18 02/01/23 07:17 BP 148/78 H 02/01/23 07:17 Pulse Ox 95 02/01/23 07:17 Laboratory Results - last 24 hr 02/01/23 07:02 WBC 4.10 L RBC 3.07 L Hgb 10.2 L Hct 30.1 L MCV 98 H MCH 33.2 H MCHC 33.9 RDW 13.7 Plt Count 208 MPV 10.2 Time Spent with Patient Time Spent with Patient: >50 minutes Time was spent: preparing to see the patient(eg.review tests), ordering medications,tests, procedures, referring, communicating with other health career development engineer, indepentently interpreting results, counseling the patient and care coordination
--- NOTE | 2023-02-01 12:30 | PT.INTREAT ---
PT Notes Visit Reasons: Left leg cellulitis Inpatient Physical Therapy Treatment Note [facility] Date: 02/01/23 SUBJECTIVE: Pt stated he thinks he is feeling better. Very hard to keep him awake, but was agreeable to PT. OBJECTIVE: []? PAIN: L LE with any touch ? Therapeutic Exercises (85087r5): Direct one-on-one instruction in therapeutic exercises to develop strength, endurance, range of motion and flexibility. ? Exercises ?performed P/AAROM of right LE including AP, SKTC/heel slides, hip ab/add IR/ER. ? ASSESSMENT:? unable to follow directions. Pt would answer simple Yes/no questions but would not converse with myself. Not able to participate in PT today. PLAN:will continue to work on his global strength and functional mobility to tolerance. TREATMENT CODE/TIME: 10min [id number]
[2023-02-01] MEDS: Atorvastatin 40 MG TAB PO (19:24)
[2023-02-01 21:09] VITALS: BP 124/75; PULSE 87; RESP 18; TEMP 37; O2SAT 94
[2023-02-02 06:46] LABS: Abs Immature Grans 0.04 10^3/uL (0.0-0.06); Absolute Basophil Count 0.01 10^3/uL (0.0-0.2); Absolute Eosinophil Count 0.14 10^3/uL (0.0-0.7); Absolute Lymphocyte Count 0.58 10^3/uL (1.2-3.4); Absolute Monocyte Count 0.04 10^3/uL (0.1-0.8); Absolute Neutrophil Count 3.03 10^3/uL (1.2-6.7); Basophils % 0.3; Eosinophils % 3.6; HCT 29.2 % (40.0-50.0); Lymphocytes % 15.1; MCH 33.4 pg (27.0-33.0); MCHC 34.2 % (32.0-36.0); MCV 98 fL (80-95); MPV 10.2 fL (8.0-11.0); Platelet Count 229 10^3/uL (130-400); RBC 2.99 10^6/uL (4.36-5.78); RDW 13.9 % (11.8-14.1); RDW-SD 49.3 fL; WBC 3.84 10^3/uL (4.4-10.8)
[2023-02-02 07:02] LABS: Anion Gap 9.4 mmol/L (3-11); BUN 19 mg/dL (7-18); CO2 23.6 mmol/L (21.0-32.0); CREATININE 0.9 mg/dL (0.70-1.30); Calcium 8.8 mg/dL (8.5-10.1); Chloride 102 mmol/L (98-107); Estimated GFR 86.88 (mL/min/1.73m2); Glucose 162 mg/dL (74-106); Potassium 3.9 mmol/L (3.5-5.1); Sodium 135 mmol/L (136-145)
[2023-02-02 07:40] VITALS: BP 145/77; PULSE 84; RESP 18; TEMP 36.7; O2SAT 95
[2023-02-02] MEDS: metFORMIN 500 MG TAB 1000 MG PO ×2 (08:29→16:21)
[2023-02-02] MEDS: Clopidogrel 75 MG TAB PO (08:29)
[2023-02-02] MEDS: Linezolid 600 MG TAB PO ×2 (08:29→20:22)
[2023-02-02] MEDS: Enoxaparin 40 MG/0.4 ML SYR SC (08:29)
[2023-02-02] MEDS: Magnesium Oxide 400 MG TAB PO ×2 (08:29→20:22)
[2023-02-02] MEDS: Multivitamin TAB 1 TAB PO (08:29)
[2023-02-02] MEDS: Insulin Aspart 300 UNITS/3 ML PEN SC (08:30)
--- NOTE | 2023-02-02 11:12 | PGE_ITS ---
Date of Service Date of service: 02/02/23 Time of Service: 11:12 Assessment and Plan Assessment and plan (1) Cellulitis of left lower limb: Status: Acute Assessment and plan: continue Cefazolin and vancomycin day 4 LE US neg for DVT Echo neg for valve veg Xray neg for osteo, consider MRI (2) Diabetic foot ulcer: Status: Acute Assessment and plan: This is unstagable at this point. Offloading. Monitor. wound care consulted Podiatry consulted (3) Stroke: Status: Chronic Assessment and plan: Continue clopidogrel and and atorvastatin (4) Type 2 diabetes mellitus: Status: Chronic Assessment and plan: A1c 7.2 11/10 Not on hypoglycemics (5) CAD (coronary artery disease): Assessment and plan: Chronic, stable (6) Dementia: Status: Chronic Assessment and plan: Cooperative, pleasant (7) Psoriasis: Assessment and plan: Diffuse chronic rash (8) DVT prophylaxis: Status: Acute Assessment and plan: Enoxaparin (9) Discharge planning issues: Status: Acute Assessment and plan: Return to health and rehab when stable 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, discussed with Dr Segal Subjective Subjective Patient reports: no new complaints, pain is less, tolerating a regular diet, bowel movement and afebrile; denies diarrhea, nausea or vomiting Exam Const General: cooperative, comfortable and well developed Nutritional Appearance: well nourished and overweight Orientation: alert, awake and confused [facility] Head: normal to inspection, normocephalic and atraumatic General nose exam: external nose normal Face and sinus: normal facial exam and face symmetric Mouth: mucous membranes dry (appears dry) Eyes General: appearance normal, both eyes and all related structures (EOM intact, PERRLA) Neck Neck: normal visual inspection and full ROM Resp Effort & Inspection: normal respiratory effort, able to speak in complete sentences and no respiratory distress Cardio Rate: regular rate Rhythm: regular rhythm GI Palpation: soft Skin Rashes: rashes noted (left lower extremity from foot to thigh. significant pitting edema) Other: old healed surgical incision on left knee, denies pain to movement of left knee. Neuro General: patient alert and patient awake Cognition: abnormal cognition Gait: other (did not assess gait) Objective Last Vital Signs Temp 36.7 C 02/02/23 07:40 Pulse 84 02/02/23 07:40 Resp 18 02/02/23 07:40 BP 145/77 H 02/02/23 07:40 Pulse Ox 95 02/02/23 07:40 Laboratory Results - last 24 hr 02/02/23 06:30 WBC 3.84 L RBC 2.99 L Hgb 10.0 L Hct 29.2 L MCV 98 H MCH 33.4 H MCHC 34.2 RDW 13.9 Plt Count 229 MPV 10.2 Immature Gran % 1.0 Neutrophils % 79.0 Lymphocytes % 15.1 Monocytes % 1.0 Eosinophils % 3.6 Basophils % 0.3 Nucleated RBC % 0.0 Absolute Neutrophils 3.03 Absolute Lymphocytes 0.58 L Absolute Monocytes 0.04 L Absolute Eosinophils 0.14 Absolute Basophils 0.01 Sodium 135 L Potassium 3.9 Chloride 102 Carbon Dioxide 23.6 Anion Gap 9.4 BUN 19 H Creatinine 0.9 Est GFR (CKD-EPI 2020) 86.88 Glucose 162 H Calcium 8.8 Time Spent with Patient Time Spent with Patient: 25-34 minutes Time was spent: preparing to see the patient(eg.review tests), ordering med ications,tests, procedures, referring, communicating with other health palliative care physician, indepentently interpreting results, counseling the patient and care coordination
--- NOTE | 2023-02-02 12:38 | PT.INNT ---
PT Notes Visit Reasons: Left leg cellulitis held PT today. Pt very lethargic and sleeping all am. His 2 daughters in to visit. They stated he has been asleep for them all am as well. Will check back with him in am
[2023-02-02 16:10] VITALS: BP 161/78; PULSE 83; RESP 18; TEMP 37.3; O2SAT 97
[2023-02-02 19:43] VITALS: BP 143/75; PULSE 89; RESP 18; TEMP 37.5; O2SAT 95
[2023-02-02] MEDS: Atorvastatin 40 MG TAB PO (20:22)
--- NOTE | 2023-02-03 | DI.MRI_ITS ---
Exam(s) MR LOWER JOINT LT WO EXAM: MR LOWER JOINT LT WO CLINICAL HISTORY: Osteomyelitis left HEEL TECHNIQUE: Multiplanar multisequence MRI was performed without intravenous contrast. COMPARISON: Dedicated heel calcaneus plain films reviewed. FINDINGS: SKIN: There is prominent subcutaneous edema over the lateral aspect of the hindfoot. No distinct ulc er tract evident. BONES/JOINTS: No evidence of fracture nor bone contusion. There is no confluent intraosseous hypoint ense T1 signal to suggest osteomyelitis of the calcaneus and also no intraosseous bone edema seen on the STIR images. There is no evidence of para-articular ganglion. LIGAMENTS: No obvious tears evident. PLANTAR FASCIA: Unremarkable. No tear nor nodularity. MUSCULOTENDINOUS STRUCTURES: No tendon tears nor tenosynovitis evident. Mild thickening of the Achil les tendon. No tear of this structure. SINUS TARSI: No loss of normal fat signal. Inter osseous ligament is intact. There is no evidence o f sinus tarsi ganglion cyst. IMPRESSION: 1. There is prominent subcutaneous edema over the lateral aspect of the ankle and calcaneus. There i s also subcutaneous soft tissue edema over the opposite-medial aspect of the ankle. 2. There is no evidence of osteomyelitis. 3. No tendon tears nor tenosynovitis evident. DATA REPOSITORY:
[2023-02-03 07:02] LABS: HCT 29.1 % (40.0-50.0); HGB 10.1 g/dL (13.5-17.5); MCH 34.1 pg (27.0-33.0); MCHC 34.7 % (32.0-36.0); MCV 98 fL (80-95); MPV 10.4 fL (8.0-11.0); Platelet Count 245 10^3/uL (130-400); RBC 2.96 10^6/uL (4.36-5.78); RDW 13.8 % (11.8-14.1); RDW-SD 49.6 fL; WBC 3.49 10^3/uL (4.4-10.8)
[2023-02-03 07:16] LABS: Anion Gap 9.3 mmol/L (3-11); BUN 19 mg/dL (7-18); CO2 24.7 mmol/L (21.0-32.0); Calcium 8.7 mg/dL (8.5-10.1); Chloride 101 mmol/L (98-107); Estimated GFR 76.56 (mL/min/1.73m2); Glucose 163 mg/dL (74-106); Magnesium 2.3 mg/dL (1.8-2.4); Sodium 135 mmol/L (136-145)
[2023-02-03 07:28] LABS: Absolute Eosinophil Count 0.31 10^3/uL (0.0-0.7); Absolute Lymphocyte Count 0.73 10^3/uL (1.2-3.4); Absolute Monocyte Count 0.07 10^3/uL (0.1-0.8); Absolute Neutrophil Count 2.37 10^3/uL (1.2-6.7); Atypical Lymphocytes % 3; Diff Comment Manual Differential; RBC Morphology Normal
[2023-02-03 09:10] VITALS: BP 131/80; PULSE 75; RESP 18; TEMP 37.1
[2023-02-03] MEDS: Enoxaparin 40 MG/0.4 ML SYR SC (09:20)
[2023-02-03] MEDS: metFORMIN 500 MG TAB 1000 MG PO ×2 (09:20→16:17)
[2023-02-03] MEDS: Linezolid 600 MG TAB PO ×2 (09:20→20:26)
[2023-02-03] MEDS: Clopidogrel 75 MG TAB PO (09:20)
[2023-02-03] MEDS: Magnesium Oxide 400 MG TAB PO ×2 (09:20→20:26)
[2023-02-03] MEDS: Multivitamin TAB 1 TAB PO (09:26)
[2023-02-03] MEDS: Insulin Aspart 300 UNITS/3 ML PEN SC ×2 (09:26→12:53)
--- NOTE | 2023-02-03 09:31 | OT.INNT ---
Occupational Therapy Notes 02/03/23 OT attempted to consult with pt this morning x2 but was unable to time this right with pt and other providers. OT will attempt consult tomorrow to assess pts functional limitations in his ADL/IADL routines. Kaylene Grubbs, OTR/L
--- NOTE | 2023-02-03 12:55 | PT.INTREAT ---
Date of service: 02/03/23 Time of Service: 09:04 PT Notes Visit Reasons: Left leg cellulitis Inpatient Physical Therapy Treatment Note [facility] Date: 02/03/23 PRECAUTIONS: Fall, standard, activity as tolerated. CONTACT PRECAUTIONS. SUBJECTIVE: MORNING: Patient alert, conversant. Reports enjoying his breakfast. AFTERNOON: patient appears alert, however responses are extremely delayed or absent. OBJECTIVE: Patient supine in bed, agreeable to therapy. Bilateral side rails in place. AFTERNOON: Patient sitting up with HOB very elevated, no side rails up on right side, torso and head leaning far to right side. minimally responsive, but indicates that he would be agreeable to moving some. ? PAIN: None reported. Some grimacing noted in the afternoon, unclear whether from pain or fear. VITALS: monitored by nursing staff.? Therapeutic Activities ([id number]): Direct one-on-one instruction in dynamic activities to improve functional performance. ? BED MOBILITY/TRANSFERS? Rolling L/R: not assessed. JESS Brown reports max of 3 to roll, as patient becomes fearful and resistant. Supine-sit: Max assist of 1 to move legs over, max assist of 1 via handhold and help at patient's lower (right) shoulder to sit upright. AFTERNOON: unable. ? Sit-supine: Max assist of 1 to guide shoulders and legs. Patient assists minimally to raise legs. AFTERNOON: unable. ? Sit-stand: unable ? Stand-sit: unable ? Bed-Chair: unable ? Chair-bed: unable Patient able to maintain sitting balance EOB for >2 minutes in the AM. AFTERNOON: This therapist attempted to assist patient in repositioning in bed. Patient was unable to follow single step instructions. Patient was unable to follow verbal and/or tactile cues. When this therapist attempted to reposition patient with Max Assist, patient grabed the opposite side of the bed and pulled himself further over in the wrong direction (after verbally agreeing to move left, pulled himself further right.) Provided skilled cues and instruction on performance and technique throughout. ?? ASSESSMENT:? Patient tolerates therapy well, no complaint of pain or SOB after either therapy session. Returns to lay in bed at the end of both sessions with call mcqueen within easy reach. PLAN: Continue global strengthening per plan of care until patient is medically cleared for discharge back to the SNF at which he resides. TREATMENT CODE/TIME: 21 minutes beginning at 9:04 and 21 minutes beginning at 13:52
[2023-02-03 16:12] VITALS: BP 132/59; PULSE 78; RESP 18; TEMP 37.3; O2SAT 96
[2023-02-03] MEDS: Normal Saline Flush 10 ML SYR IVP ×2 (16:18→20:27)
--- NOTE | 2023-02-03 16:22 | CMPROGNOTE_ITS ---
Date of service: 02/03/23 Time of Service: 16:22 Care Management Progress Note Progress Note Text Progress Note Text: S/O: Alvarez was busy with nursing when CM attempted to visit today. Per RN, he was seen by podiatry today, who has requested an MRI for tomorrow, and may take him to the OR, depending on the results of the MRI. CM communicated this update with [facility]. CM will continue to follow. A: Alvarez is a 77 year old male admitted to [facility] on 01/28/23 for left leg cellulitis. P: Anticipate Alvarez will return to [facility] once medically cleared. CM will coordinate transport via facility w/c van. He will follow up with facility providers and his discharge plan of care. CM will continue to follow.
--- NOTE | 2023-02-03 16:39 | W.PM.PROGNOT ---
Date of Service Date of service: 02/03/23 Time of Service: 16:39 Assessment and Plan Assessment and plan (1) Cellulitis of left lower limb: Status: Acute Assessment and plan: continue Cefazolin and vancomycin day 5 LE US neg for DVT Echo neg for valve veg MRI Seen by podiatry - plan to go to OR tomorrow; will make NPO after MN (2) Diabetic foot ulcer: Status: Acute Assessment and plan: This is unstagable at this point. Offloading. Monitor. 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, discussed with Dr Segal and Dr Kowalski Subjective Subjective Patient reports: no new complaints, tolerating a regular diet, bowel movement and afebrile; denies no flatus, diarrhea, nausea or vomiting Exam Const General: cooperative, comfortable and well developed Nutritional Appearance: well nourished and overweight Orientation: alert, awake and confused [facility] Head: normal to inspection, normocephalic and atraumatic General nose exam: external nose normal Face and sinus: normal facial exam and face symmetric Mouth: mucous membranes dry (appears dry) Eyes General: appearance normal, both eyes and all related structures (EOM intact, PERRLA) Neck Neck: normal visual inspection and full ROM Resp Effort & Inspection: normal respiratory effort, able to speak in complete sentences and no respiratory distress Cardio Rate: regular rate Rhythm: regular rhythm GI Palpation: soft Skin Rashes: rashes noted (left lower extremity from foot to thigh. significant pitting edema) Other: old healed surgical incision on left knee, denies pain to movement of left knee. Neuro General: patient alert and patient awake Cognition: abnormal cognition Gait: other (did not assess gait) Objective Last Vital Signs Temp 37.3 C 02/03/23 16:12 Pulse 78 02/03/23 16:12 Resp 18 02/03/23 16:12 BP 132/59 L 02/03/23 16:12 Pulse Ox 96 02/03/23 16:12 Laboratory Results - last 24 hr 02/03/23 06:38 WBC 3.49 L RBC 2.96 L Hgb 10.1 L Hct 29.1 L MCV 98 H MCH 34.1 H MCHC 34.7 RDW 13.8 Plt Count 245 MPV 10.4 Immature Gran % 0.0 Neutrophils % 68.0 Lymphocytes % 18.0 Atypical Lymphs % 3 Monocytes % 2.0 Eosinophils % 9.0 Basophils % 0.0 Nucleated RBC % 0.0 Absolute Neutrophils 2.37 Absolute Lymphocytes 0.73 L Absolute Monocytes 0.07 L Absolute Eosinophils 0.31 Absolute Basophils 0.00 RBC Morphology Normal Sodium 135 L Potassium 4.0 Chloride 101 Carbon Dioxide 24.7 Anion Gap 9.3 BUN 19 H Creatinine 1.0 Est GFR (CKD-EPI 2020) 76.56 Glucose 163 H Calcium 8.7 Magnesium 2.3 Time Spent with Patient Time Spent with Patient: 35-49 minutes Time was spent: preparing to see the patient(eg.review tests), ordering medications,tests, procedures, referring, communicating with other health career development specialist, indepentently interpreting results, counseling the patient and care coordination
--- NOTE | 2023-02-03 17:47 | POCOE_ITS ---
Date of service: 02/03/23 Time of Service: 12:00 Assessment and Plan Assessment and plan (1) Wet gangrene: Status: Acute (2) Diabetic wet gangrene of the foot: Status: Acute (3) Unstageable pressure ulcer of left heel: Status: Acute (4) Dementia: Status: Chronic (5) Stroke: Status: Chronic (6) Type 2 diabetes mellitus: Status: Chronic (7) Diabetic foot ulcer: Status: Acute Assessment and plan: Patient was seen and evaluated bedside today. Chart was reviewed. I reviewed x-rays which do not demonstrate any soft tissue emphysema or periosteal reaction suggestive of osteomyelitis. I reviewed the MRI images however awaiting official report. Labs were reviewed as well. Patient noted to be with wet gangrene of the left foot secondary to pressure injury. There is skin skin sloughing noted to the wound at this time further suggestive of a deeper infection. The necrotic skin sloughing was debrided today using sterile scissors and pickups and passed from the field. Cultures were taken and sent today. I advised the patient I recommend OR wound debridement and exploration to rule out abscess and to debride necrotic nonviable tissue. There is risk for infection to the bone at this time as well as limb loss. I recommend an OR wound debridement meant. Patient will be n.p.o. midnight tonight We will continue basic labs as well as ESR and CRP. Case was discussed with the hospitalist team who agree and their recommendations are appreciated. We will continue to follow. Thank you for allowing me to precipitate in this patient's care History of Present Illness Narrative: This is a 77-year-old male patient with history of diabetes, dementia, stroke who is a resident of a rehab facility at this time consulted for left foot ulcer. Patient was seen bedside today resting comfortably. Patient reports pain to the left heel. Patient denies any other pedal complaints. Increased swelling noted today as per nursing Review of Systems Constitutional Constitutional: Denies chills, Denies fever(s), Denies night sweats and Denies weight loss Cardiovascular Cardiovascular: Denies diaphoresis and Denies dyspnea Respiratory Respiratory: Denies dyspnea PFSH All Active Problems (Updated 02/03/23 @ 17:55 by Radha Kowalski DPM) Unstageable pressure ulcer of left heel (Acute) Diabetic wet gangrene of the foot (Acute) Wet gangrene (Acute) Discharge planning issues (Acute) DVT prophylaxis (Acute) Diabetic foot ulcer (Acute) Cellulitis of left lower limb (Acute) Weight loss (Acute) UTI (urinary tract infection) (Acute) Dementia (Chronic) Nonspecific paroxysmal spell (Acute) Brain TIA (Acute) Stenosis of right middle cerebral artery (Acute) MRSA colonization (Acute) Stroke (Chronic) Type 2 diabetes mellitus (Chronic) Medical History Middle cerebral artery stenosis Anemia, mild Tachy-sara syndrome Ambulatory dysfunction E coli infection Memory changes Tinea corporis Mobility impaired Rash Sepsis secondary to UTI Dizziness and giddiness BPH (benign prostatic hyperplasia) GERD (gastroesophageal reflux disease) Neuropathy Obesity HLD (hyperlipidemia) CHF (congestive heart failure) Urinary incontinence Psoriasis Diabetes Hyperglycemia Hypertension CAD (coronary artery disease) Hypercholesteremia Surgical History H/O hernia repair S/P appendectomy S/P knee replacement Hx of CABG H/O surgical procedure a. Aortic valve replacement 04/2013 b. left THR 10/04/2013 c. Left TKR 6-7 years ago S/P AVR (aortic valve replacement) 04/2013 Social History Smoking/Tobacco Use Status: Former Tobacco Use Smoking risk assessment performed?: Yes Alcohol Intake: never Drug use: Never Substance use type: does not use Housing: assisted living facility Do you feel safe at home: Yes Do you feel safe in your relationship?: Yes Additional Social history: Current resident of [facility] Exam Extrem Other: Bilateral lower extremity physical exam: Derm: Skin is warm dry and supple bilaterally. There is an unstageable ulceration noted to the plantar and posterior aspect of the left heel covering the entirety of the heel, there is necrotic tissue noted to the wound bed with skin sloughing and slight drainage there is mild malodor noted here, mild periwound erythema noted there is edema noted to the entire left foot. No crepitus or fluctuance noted at this time. Vascular: DP PT pulses are nonpalpable bilateral lower extremity however dopplerable. MSK muscle strength testing deferred today. There is pain on palpation noted to the left heel. Neuro: Light touch sensation noted to be absent bilaterally Results Last Vital Signs Temp 99.1 F 02/03/23 16:12 Pulse 78 02/03/23 16:12 Resp 18 02/03/23 16:12 BP 132/59 L 02/03/23 16:12 Pulse Ox 96 02/03/23 16:12 Labs 02/03/23 06:38 02/03/23 06:38 Labs: Laboratory Results - last 24 hr 02/03/23 06:38 WBC 3.49 L RBC 2.96 L Hgb 10.1 L Hct 29.1 L MCV 98 H MCH 34.1 H MCHC 34.7 RDW 13.8 Plt Count 245 MPV 10.4 Immature Gran % 0.0 Neutrophils % 68.0 Lymphocytes % 18.0 Atypical Lymphs % 3 Monocytes % 2.0 Eosinophils % 9.0 Basophils % 0.0 Nucleated RBC % 0.0 Absolute Neutrophils 2.37 Absolute Lymphocytes 0.73 L Absolute Monocytes 0.07 L Absolute Eosinophils 0.31 Absolute Basophils 0.00 RBC Morphology Normal Sodium 135 L Potassium 4.0 Chloride 101 Carbon Dioxide 24.7 Anion Gap 9.3 BUN 19 H Creatinine 1.0 Est GFR (CKD-EPI 2020) 76.56 Glucose 163 H Calcium 8.7 Magnesium 2.3 Imaging Imaging Studies: Admission Date: 01/28/23 : 1945 Age: 77 Exam(s) US LOWER EXTREMITY VENOUS LT EXAM: US LOWER EXTREMITY VENOUS LT CLINICAL HISTORY: edema. TECHNIQUE: Lower extremity venous ultrasound performed using grayscale, color- flow, and spectral Doppler analysis. COMPARISON: No exams were available for comparison FINDINGS: The common femoral, femoral and popliteal veins demonstrate normal compressibility, augmentation, and color Doppler. The posterior tibial veins are patent. No saphenous vein thrombosis or other superficial venous thrombosis is seen. No hematoma or Briseno's cyst is seen. Calf edema. IMPRESSION: Calf edema. No evidence of DVT. Patient Name: Alvarez Farmer Unit #: [id number] Loc: ER Ordering Provider: Status: [facility] ER Primary Care Provider: Sony Simmons Date of Exam: 01/28/23 Sex: M : 1945 Age: 77 Exam(s) PROCEDURE INFORMATION: Exam: XR Left Foot Exam date and time: 01/28/2023 8:56 PM Age: 77 years old Clinical indication: Other: Wound, infection; Additional info: Swelling, hot to touch TECHNIQUE: Imaging protocol: Radiologic exam of the left foot. Views: 3 or more views. COMPARISON: CR XR TIB/FIB LT 11/17/2022 6:30 PM FINDINGS: Bones/joints: Moderate 1st metatarsophalangeal joint degenerative disease. Mild interphalangeal joint degenerative changes. No acute fracture or dislocation. No focal osseous destruction to suggest osteomyelitis. Soft tissues: Mild medial forefoot soft tissue swelling. No soft tissue gas or radiopaque foreign body. Vasculature: Peripheral arterial calcification, consistent with diabetes. IMPRESSION: 1. No evidence of acute osteomyelitis. 2. No acute fracture. Dictated and Authenticated by: Slim Kellogg MD. Ordering:SARAH Echeverria MD
--- NOTE | 2023-02-03 18:02 | DI.RAD_ITS ---
Exam(s) XR HEEL LT OS CALCIS EXAM: XR HEEL LT OS CALCIS CLINICAL HISTORY: wet gangrene. TECHNIQUE: 2D digital imaging was performed. COMPARISON: No exams were available for comparison FINDINGS: Two views: Lateral view and Devonte axial view. No evidence of fracture. There is an ulcer on the lateral aspect of the heel. No obvious evidence o f osteomyelitis. Vascular calcification is noted. Calcification also noted in the plantar fascia. IMPRESSION: No fracture. No obvious evidence of osteomyelitis on these plain films. DATA REPOSITORY: RADIATION DOSE DELIVERED:
--- NOTE | 2023-02-03 18:36 | DI.VRAD_ITS ---
PROCEDURE INFORMATION: Exam: MR Left Lower Extremity Joint Without Contrast; Ankle Exam date and time: 02/03/2023 5:09 PM Age: 77 years old Clinical indication: Pain; Left; Patient HX: ? Osteo lt heel TECHNIQUE: Imaging protocol: Magnetic resonance imaging of the left lower extremity without contrast. Exam focused on the ankle. Total images: 402 COMPARISON: CR XR FOOT LT COMPLETE 01/28/2023 8:56 PM FINDINGS: Bones/joints: No bone marrow edema or significant focal bony lesion. Articular cartilage is relatively maintained. No joint effusion. Soft tissues: Moderate amount of soft tissue edema within the ankle and foot. No encapsulated fluid collection to suggest an abscess. Superficial skin ulceration in the medial heel region. Major flexor and extensor tendons are intact. Mild tendinosis Achilles tendon. Plantar fascia is unremarkable. IMPRESSION: No evidence of osteomyelitis. Dictated and Authenticated by: Rubin Bates MD. Ordering:AARON Garcia MD
[2023-02-03] MEDS: Atorvastatin 40 MG TAB PO (20:26)
[2023-02-03] MEDS: Acetaminophen 650 MG SUPP PR (22:21)
[2023-02-04] VITALS (12 sets, daily range): BP systolic 125–152; BP diastolic 51–83; PULSE 66–78; RESP 15–20; TEMP 35.7–37.1; TEMPC 36.2; O2SAT 94–99; BMI 30.4
--- NOTE | 2023-02-04 | DI.CT_ITS ---
Exam(s) CT ABD AORTA CTA W RUNOFF EXAM: CT ABD AORTA CTA W RUNOFF CLINICAL HISTORY: gangrene. TECHNIQUE: Imaging Protocol: Axial CT angiography was performed with multi-slice acquisition and mu lti-planar and/or 3D reconstructions. CONTRAST MATERIAL: Intravenous: Omnipaque 350 Contrast volume:150 mL Oral: No COMPARISON: CT CT BRAIN NECK CTA from 11/17/2022 FINDINGS: There is patient motion artifact. Vascular Structures: Abdomen and pelvis: Celiac [place]/SMA: No evidence of occlusion or significant stenosis. Atherosclerosis. Renal Arteries: No evidence of occlusion or significant stenosis. There is a single renal artery perf using each kidney. Atherosclerosis bilaterally at the origins. Aorta: No aneurysm, occlusion or significant stenosis. No dissection. Atherosclerosis. Iliac Arteries: No evidence of occlusion or significant stenosis. Atherosclerosis. Lower extremities: Right: There is diffuse atherosclerosis in the right lower extremity arteries. Common Femoral: No evidence of occlusion or significant stenosis. Femoral: No evidence of occlusion or significant stenosis. Deep Femoral Artery: No evidence of occlusion or significant stenosis. Popliteal: No evidence of occlusion or significant stenosis. Infrapopliteal arteries: No evidence of occlusion or significant stenosis. Left: There is diffuse atherosclerosis in the left lower extremity arteries. Common Femoral: No evidence of occlusion or significant stenosis. Femoral: No evidence of occlusion or significant stenosis. Deep femoral artery: No evidence of occlusion or significant stenosis. Popliteal: There is artifact from the left total knee replacement. No occlusion or significant sten osis is seen. Infrapopliteal arteries:: There is dense calcification of the posterior tibial artery but there does not appear to be enhancement. This suggest occlusion. There does appear to be some flow within the fibular artery. However the fibular artery is not visualized beyond the level of the ankle joint. T here is some flow seen within the anterior tibial artery. There is dense calcification noted. There are enlarged veins in the left calf. Soft Tissues: There is a large fat containing anterior abdominal wall hernia. There is subcutaneous emphysema in the distal anterior medial thigh. Soft tissue edema of the left lower extremity includi ng the medial aspect of the left posterior foot. Lung bases: Cardiomegaly. Coronary artery calcifications are present. Liver: Normal density. No measurable mass. Gallbladder and biliary tract: No radiodense calculus or dilation. Pancreas: Normal density, no abnormal calcifications or inflammatory process. Spleen: Calcified granuloma are seen in the spleen. Kidneys: Normal size, contour and axis. No radiodense stones or obstructive uropathy. No masses seen. Adrenal glands: No masses seen. Bladder: There is a Andres catheter in the urinary bladder. Air is seen within the bladder likely ref lecting instrumentation. Bowel: No obstruction or bowel wall thickening. There is no evidence of appendicitis. There is no ev idence of pneumatosis. There is a small hiatal hernia. Peritoneal cavity: No ascites, collection or mesenteric inflammatory response. No free air. Bones: Within normal limits for the patient's age. The patient has a left total hip replacement. Th ere are marked degenerative changes seen in the right hip. There is a left total knee replacement. IMPRESSION: 1. 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 2. 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 3. Extensive atherosclerosis. No evidence of dissection or aneurysm. 4. No evidence of abscess. RADIATION DOSE DELIVERED: Total DLP DATA REPOSITORY: All CT scans at this facility are submitted to the National Radiology Data Registry (NRDR) Dose Index Registry (DIR) with the [employer] (ACR). RADIATION OPTIMIZATION: All CT scans at this facility use at least one of these dose optimization te chniques: automated exposure control; mA and/or kV adjustment per patient size (includes targeted exa ms where dose is matched to clinical indication); or iterative reconstruction.
[2023-02-04 07:09] LABS: Abs Immature Grans 0.01 10^3/uL (0.0-0.06); HCT 31.3 % (40.0-50.0); HGB 10.6 g/dL (13.5-17.5); MCH 33.1 pg (27.0-33.0); MCHC 33.9 % (32.0-36.0); MCV 98 fL (80-95); MPV 10.3 fL (8.0-11.0); RDW 13.4 % (11.8-14.1); RDW-SD 48.4 fL; WBC 3.44 10^3/uL (4.4-10.8)
[2023-02-04 07:27] LABS: Anion Gap 8.9 mmol/L (3-11); BUN 18 mg/dL (7-18); CO2 25.1 mmol/L (21.0-32.0); Chloride 103 mmol/L (98-107); Estimated GFR 76.56 (mL/min/1.73m2); Glucose 154 mg/dL (74-106); Magnesium 2.3 mg/dL (1.8-2.4); Potassium 3.7 mmol/L (3.5-5.1); Sodium 137 mmol/L (136-145)
[2023-02-04 08:00] LABS: Platelet Count 224 10^3/uL (130-400)
[2023-02-04 08:01] LABS: Absolute Eosinophil Count 0.03 10^3/uL (0.0-0.7); Absolute Lymphocyte Count 0.89 10^3/uL (1.2-3.4); Absolute Neutrophil Count 2.51 10^3/uL (1.2-6.7); Atypical Lymphocytes % 0; Bands % 0; Diff Comment Manual Differential; RBC Morphology Normal
[2023-02-04] MEDS: Linezolid 600 MG TAB PO ×2 (08:28→20:31)
[2023-02-04] MEDS: Magnesium Oxide 400 MG TAB PO ×2 (08:28→20:31)
[2023-02-04] MEDS: Multivitamin TAB 1 TAB PO (08:28)
[2023-02-04] MEDS: Insulin Aspart 300 UNITS/3 ML PEN SC ×2 (08:31→11:51)
--- NOTE | 2023-02-04 08:47 | W.PM.PROGNOT ---
Date of Service Date of service: 02/04/23 Time of Service: 08:47 Assessment and Plan Assessment and plan (1) Cellulitis of left lower limb: Status: Acute Assessment and plan: Initially on Cefazolin 2g IV q 8 hr and vancomycin pharmacy dosing day 3, this was discontinued. Then on Zyvox for MRSA, covers other GP pathogens for skin and soft tissue infections and blood cultures on the 01/28 resulted as staph Capitis; one blood culture positive for gram pos cocci, second bottle remains negative, re-drawn this morning with results pending. echo shows no valvular vegetations has been hemodynamically stable. It doesn't appear to be joint involvement, though history and exam limited by his dementia. There was some concern for DVT, but POCUS non diagnostic, formal US negative for DVT. CRP remains high and was already concerning for osteomyelitis in the presence of the foot ulcer. We will keep trending as well as ESR. Xray and MRI do not suggest this.. Seen by podiatry and OR scheduled today, considering wet gangrene,Aorta with runoff CTA completed as per podiatry order for minimal bleeding during surgical intervention and poor pulse. (2) Diabetic foot ulcer: Status: Acute Assessment and plan: This is unstagable at this point. Offloading. Monitor. 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 New cerebrovascular disease was discovered on MRI, but findings were not c/w his symptoms and Dr. Fernandez treated with 30 days of DAPT followed by clopidogrel. Plan remains the same Will continue the clopidogrel and his atorvastatin per Dr. Fernandez's recommendations. (4) Type 2 diabetes mellitus: Status: Chronic Assessment and plan: A1c 7.2 in October without medications, on metformin, blood glucose monitorin with SS insulin coverage might have a history of hypoglycemia re: Glucagon on his medication list. . Glucose 154 this AM NPO for OR diet to be resumed post-surgery (5) CAD (coronary artery disease): Assessment and plan: We will continue statin/clopidogrel. no ACS symptoms reported (6) Dementia: Status: Chronic Assessment and plan: Monitor and try to manage behaviorally.Patient remains cooperative despite baseline confusion (7) Psoriasis: Assessment and plan: Previously seen areas on buttocks and back where there is pressure with positive blanching. We will continue repositioning as per nursing protocol Diffuse rash, most likely from psoriasis. We will continue to monitor. (8) DVT prophylaxis: Status: Acute Assessment and plan: We will continue Lovenox after surgery (9) Discharge planning issues: Status: Acute Assessment and plan: He can return to health and rehab once he is clearly improving and we have a plan to finish therapy. could be continued at the SNF when ready for discharge as per clinical sign of improvement discussed with DR Segal Subjective Subjective Patient reports: no new complaints, feels better, still having pain (minimal after surgery ), pain is less, tolerating liquids well (resuming diet post -op), tolerating a regular diet (resuming diet post-op), voiding w/o difficulty (frank), bowel movement and afebrile; denies flatus, diarrhea, nausea, vomiting or shortness of breath Exam Narrative Exam Narrative: Constitutional The patient is lying in bed comfortable and cooperative during the interview. The patient is without acute distress HENMT: Head is atraumatic, normocephalic, no lymphadenopathy. Facial structures with normal appearance Eyes: Well aligned, Neck: Normal ROM Neuro:alert and oriented to self but confused other nunez, recognized family members.No neurological focal deficit Chest:Chest is symmetrical Resp: Normal respiratory pattern, speaks in full sentences, unlabored breathing, clear lung bilaterally with diminishes bibasilar breath sounds Cardio: regular rhythm, S1, S2,capillary refill<3 sec., dorsalis pedis pulse weaker on the left LE, but palpable GI: Abdomen is not distended, soft and non tender, bowel sounds are present : Back/spine/Pelvis: No back tenderness, Integumentary: Cellulitis to left lower ext: erythema, DCI surgical dressing in place , diffuse rash w/o pruritus Extremities: strength 5/5 to bilateral lower and upper extremities Psych: RASS 0, congruent mood and normal to flat affect. Objective Last Vital Signs Temp 36.9 C 02/04/23 07:48 Pulse 67 02/04/23 07:48 Resp 18 02/04/23 07:48 BP 152/83 H 02/04/23 07:48 Pulse Ox 98 02/04/23 07:48 Laboratory Results - last 24 hr 02/04/23 06:30 WBC 3.44 L RBC 3.20 L Hgb 10.6 L Hct 31.3 L MCV 98 H MCH 33.1 H MCHC 33.9 RDW 13.4 Plt Count 224 MPV 10.3 Immature Gran % 0.0 Neutrophils % 73.0 Band Neutrophils % 0 Lymphocytes % 26.0 Atypical Lymphs % 0 Monocytes % 0.0 Eosinophils % 1.0 Basophils % 0.0 Nucleated RBC % 0.0 Absolute Neutrophils 2.51 Absolute Lymphocytes 0.89 L Absolute Monocytes 0.00 L Absolute Eosinophils 0.03 Absolute Basophils 0.00 RBC Morphology Normal Sodium 137 Potassium 3.7 Chloride 103 Carbon Dioxide 25.1 Anion Gap 8.9 BUN 18 Creatinine 1.0 Est GFR (CKD-EPI 2020) 76.56 Glucose 154 H Calcium 9.0 Magnesium 2.3 C-Reactive Protein 9.70 H Time Spent with Patient Time Spent with Patient: >50 minutes Time was spent: preparing to see the patient(eg.review tests), ordering medications,tests, procedures, referring, communicating with other health healthcare manager, indepentently interpreting results, counseling the patient and care coordination
[2023-02-04] MEDS: metFORMIN 500 MG TAB 1000 MG PO (08:49)
--- NOTE | 2023-02-04 09:38 | OTIE_ITS ---
Occupational Therapy Notes Inpatient Occupational Therapy Evaluation Date: 02/04/23 Referring Doctor: Tab Becker MD OT Orders: Non urgent Precautions: Fall, Contact, DNR/DNI PATIENT PROFILE/ADMITTING DIAGNOSIS: Pt is a 77 year old male who was admitted to Med Surg for the following dx of unstageable pressure ulcer if (L) heel, diabetic wet gangrene of the foot, cellulitis of (L) lower limb, weight loss, UTI, Stroke, dementia, brain TIA, stenosis of (R) cerebral artery, MRSA colonization . Past Medical History: All Active Problems Discharge planning issues (Acute) DVT prophylaxis (Acute) Diabetic foot ulcer (Acute) Cellulitis of left lower limb (Acute) Weight loss (Acute) UTI (urinary tract infection) (Acute) Stroke (Chronic) Dementia (Chronic) Nonspecific paroxysmal spell (Acute) Brain TIA (Acute) Stenosis of right middle cerebral artery (Acute) MRSA colonization (Acute) Type 2 diabetes mellitus (Chronic) Medical History Ambulatory dysfunction Anemia, mild BPH (benign prostatic hyperplasia) CAD (coronary artery disease) CHF (congestive heart failure) Diabetes Dizziness and giddiness E coli infection GERD (gastroesophageal reflux disease) HLD (hyperlipidemia) Hypercholesteremia Hyperglycemia Hypertension Memory changes Middle cerebral artery stenosis Mobility impaired Neuropathy Obesity Psoriasis Rash Sepsis secondary to UTI Tachy-sara syndrome Tinea corporis Urinary incontinence Surgical History H/O hernia repair H/O surgical procedure a. Aortic valve replacement 04/2013 b. left THR 10/04/2013 c. Left TKR 6-7 years agoHx of CABG S/P appendectomy S/P AVR (aortic valve replacement) 04/2013S/P knee replacement Social History/Home Situation: Pt resides at SNF. He is unable to really provide OT with any baseline level of function. His daughter is present and notes that he does require (A) with dressing, bathing and ADLs. She states that at times he is incontinent and others he knows he has to go to the bathroom but then can't make it. Equipment owned/DME: DME needs met by SNF SUBJECTIVE: Pt was sitting in bed when OT arrived. He is alert to his name and able to verbally respond but increased processing and performance time. OBJECTIVE: General Observation: Pleasantly confused, decreased functional performance without min-mod vc throughout, bruise on (R) UE near elbow, redness in (B) arm pits Mental Status: Alert to name Pain: c/o pain in foot at times with movement ROM: RUE AROM WFL L UE AROM WFL STRENGTH: RUE 4-/5 throughout LUE 4-/5 thorughout FUNCTIONAL MOBILITY/ADLS: BATHING seated in bed max (A) set up/clean up and mod vc Bathing UE (I) face, (B) UE on the outside of UE, and lower abdomen Bathing LE max (A) DRESSING sitting in bed Dressing UE mod (A) with [facility] gown Dressing LE NT GROOMING sitting in bed (I) with brushing hair with min vc, (I) with oral hygiene with mod vc and max set up/clean up TOILETING Incontinent at times. EATING Pt is NPO at this time awaiting surgical intervention today at noon. BALANCE: Static sitting Good Dynamic Sitting Good Static Standing NT Dynamic Standing NT SPECIAL TESTS: Daily Activity Limitations Standardized Measure [facility] AM -PAC ?6 clicks? Daily Activity Inpatient Short Form: Raw score: 10 Standardized score: 27.31 CMS score: 74.70% INFORMED CONSENT/EDUCATION: Pt instructed in purpose of OT Consult and plan of care. ASSESSMENT: Patient is a 77-year-old male referred to occupational therapy services with diagnosis of unstageable pressure ulcer if (L) heel, diabetic wet gangrene of the foot, cellulitis of (L) lower limb, weight loss, UTI, Stroke, dementia, brain TIA, stenosis of (R) cerebral artery, MRSA colonization . Patient presents with clinical signs and symptoms consistent with dx, as demonstrated by the following impairment level findings/functional limitations: Impairments in ADL/IADL and leisure activities, confused, decreased functional activity tolerance, decreased functional mobility, requires vc for task initiation, task execution, task processing, decreased safety awareness d/t cognition level. AMPAC score 10 Patient is assessed as a Moderate 80885 complexity based on the following: History: see above Examination: see functional limitations as noted above Presentation: evolving Decision Making: AMPAC score 10 GOALS Goals x1 week 1. Oral Hygiene- max (A) Set up/clean up (I) with brushing of teeth 2. Dressing- Seated in chair min (A) LE and mod (A) LE 3. Bathing- max (A) set up/clean up (I) UE 4. Toileting on commode mod (A) 5. Eating (I) PLAN OF CARE/TREATMENT PLAN: 1x/day, 5 days/ week x 1week Initiate Occupational Therapy Services for bathing, dressing, grooming, toileting, eating, transfer training. DISCHARGE RECOMMENDATIONS Return to SNF when medically cleared per MD. TREATMENT TIME/MINUTES/CODES [id number], [id number], 38 minutes Kaylene Grubbs OTR/L [facility] [place], [place]
--- NOTE | 2023-02-04 10:14 | PDOC.CMPRO ---
Date of service: 02/04/23 Time of Service: 10:14 Care Management Progress Note Progress Note Text Progress Note Text: S/O: Alvarez went to the OR today for a wound debridement and exploration to rule out abscess and to debride nectrotic nonviable tissue. Cultures were taken yesterday and were sent for testing. His CRP remains high, although osteomyelitis was ruled out by MRI. OT evaluated him this morning, and found that he requires support for bathing, dressing, grooming, toileting, eating and transfer training. OT feels that SNF level of care is appropriate. CM will continue to follow. A: Alvarez is a 77 year old male admitted to [facility] on 01/28/23 for left leg cellulitis. P: Anticipate Alvarez will return to [facility] once medically cleared. CM will coordinate transport via facility w/c van. He will follow up with facility providers and his discharge plan of care. CM will continue to follow.
--- NOTE | 2023-02-04 11:41 | W.ANESPRE ---
General Info Date of Service Date Performed: 02/04/23 Height: 5 ft 10 in Weight: 96.1 kg Body Mass Index (BMI): 30.4 Surgical Procedure: Operation Date: 02/04/23 12:10 Proposed Procedure Side Surgeon p I&D of Heel Left Radha Kowalski DPM Meds Allergies and Home Medications Allergies Allergy/AdvReac Type Severity Reaction Status Date / Time No Known Allergies Allergy Verified 01/28/23 20:54 Home Medication Medication Instructions Recorded acetaminophen 500 mg tablet 500 mg PO Q6H PRN 02/27/14 (Acetaminophen Extra Strength) atorvastatin 40 mg tablet 40 mg PO QHS 11/07/21 bisacodyl 10 mg rectal suppository 10 mg WY DAILY PRN 11/07/21 dextrose 40 % oral gel (Glucose 15 g PO Q15M PRN 11/07/21 Gel) glucagon 1 mg injection kit See Rx Instructions IM .COMPLEX 11/07/21 magnesium hydroxide 400 mg/5 mL 30 ml PO DAILY PRN 11/07/21 oral suspension multivitamin 1 tab PO DAILY 11/07/21 sodium phosphates 19 gram-7 118 ml WY ONCE PRN 11/07/21 gram/197 mL enema (Fleet Enema Extra) magnesium oxide 400 mg (241.3 mg 400 mg PO BID #0 tabs 08/04/22 magnesium) tablet metformin 1,000 mg tablet 1,000 mg PO BIDWMEAL 11/17/22 nitroglycerin 0.4 mg sublingual 0.4 mg sublingual PRN PRN 11/17/22 tablet clopidogrel 75 mg tablet 75 mg PO DAILY #0 tabs 11/20/22 hydrocortisone 1 % topical cream 1 applic topical BID PRN 12/30/22 clotrimazole 1 % topical cream 1 applic topical BID 01/28/23 Current Visit Medications: Current Medications Generic Name Dose Route Start Last Admin Trade Name Freq PRN Reason Stop Dose Admin Acetaminophen 650 mg 01/28/23 20:34 02/03/23 22:21 Acetaminophen 650 Mg Supp WY 650 mg Q4H PRN PRN Administration Atorvastatin Calcium 40 mg 01/28/23 22:00 02/03/23 20:26 Atorvastatin 40 Mg Tab PO 40 mg QPM JOHN Administration Bisacodyl 10 mg 01/28/23 21:37 Bisacodyl 10 Mg Supp WY DAILY PRN PRN Clopidogrel Bisulfate 75 mg 01/29/23 08:30 02/04/23 09:01 Clopidogrel 75 Mg Tab PO Not Given DAILY [facility] Clotrimazole 40 gm/ Zinc Oxide 0 gm 02/02/23 09:54 02/03/23 09:26 40 gm/ Vitamin A/Vitamin D 40 TP 1 applicatio gm TID PRN PRN Administration Dextrose 0 gm 01/29/23 00:36 Glucose Oral Gel 15 Gm/37.5 Gm Tube PO DIRECTED PRN Dextrose/Water 0 gm 01/29/23 00:36 Dextrose 50%-Water 25 Gm/50 Ml Syr IVP DIRECTED PRN Enoxaparin Sodium 40 mg 01/30/23 08:30 02/03/23 09:20 Enoxaparin 40 Mg/0.4 Ml Syr SC 40 mg DAILY [facility] Administration Sodium Chloride 500 mls @ 0 mls/hr 01/29/23 07:45 Saline 500ml Bag IV DIRECTED PRN As Directed IV Miscellaneous Supplies 1 each 01/29/23 07:45 Iv Access IV DIRECTED [facility] Insulin Aspart 0 units 01/29/23 08:00 02/04/23 08:31 Insulin Aspart 300 Units/3 Ml Pen SC 1 units 0800,1200,1700 [facility] Administration Protocol Linezolid 600 mg 01/31/23 20:00 02/04/23 08:28 Linezolid 600 Mg Tab PO 600 mg BID JOHN Administration Magnesium Hydroxide 30 ml 01/28/23 21:37 Milk Of Magnesia 30 Ml Cup PO DAILY PRN PRN Magnesium Oxide 400 mg 01/29/23 08:30 02/04/23 08:28 Magnesium Oxide 400 Mg Tab PO 400 mg BID JOHN Administration Metformin HCl 1,000 mg 01/29/23 08:00 02/04/23 08:49 Metformin 500 Mg Tab PO 1,000 mg BID@0800,1700 [facility] Administration Multivitamins 1 tab 01/29/23 08:30 02/04/23 08:28 Multivitamin Tab PO 1 tab DAILY [facility] Administration Sodium Chloride 0 ml 01/29/23 07:45 02/03/23 20:27 Normal Saline Flush 10 Ml Syr IVP 20 ml PRN PRN Administration PFSH Active Problems Active Problems: Problem Status Onset Code Unstageable pressure ulcer of left heel L89.620 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 Wet gangrene I96 Discharge planning issues Z02.9 DVT prophylaxis Z29.9 Diabetic foot ulcer E11.621, L97.509 Cellulitis of left lower limb L03.116 Weight loss R63.4 UTI (urinary tract infection) N39.0 Stroke I63.9 Dementia F03.90 Nonspecific paroxysmal spell R40.4 Brain TIA G45.9 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 Type 2 diabetes mellitus E11.9 Medical History Medical History Middle cerebral artery stenosis Anemia, mild Tachy-sara syndrome Ambulatory dysfunction E coli infection Memory changes Tinea corporis Mobility impaired Rash Sepsis secondary to UTI Dizziness and giddiness BPH (benign prostatic hyperplasia) GERD (gastroesophageal reflux disease) Neuropathy Obesity HLD (hyperlipidemia) CHF (congestive heart failure) Urinary incontinence Psoriasis Diabetes Hyperglycemia Hypertension CAD (coronary artery disease) Hypercholesteremia Surgical History Surgical History H/O hernia repair S/P appendectomy S/P knee replacement Hx of CABG H/O surgical procedure a. Aortic valve replacement 04/2013 b. left THR 10/04/2013 c. Left TKR 6-7 years ago S/P AVR (aortic valve replacement) 04/2013 Tobacco Smoking/Tobacco Use Status: Former Tobacco Use Alcohol Alcohol Intake: never Substance Use Substance use: Never Substance use type: does not use Vital Signs and Lab Results Vital Signs Most Recent Vital Signs in EMR: Most Recent Vital Signs Temp Pulse Resp BP Pulse Ox 36.9 C 67 18 152/83 H 98 02/04/23 07:48 02/04/23 07:48 02/04/23 07:48 02/04/23 07:48 02/04/23 07:48 Point of Care Results Point of Care Results: Finger Stick Blood Glucose 152 02/04/23 08:31 Lab Results 02/04/23 06:30 02/04/23 06:30 Blood Type / Crossmatch: No Data to Display Complete Blood Count: White Blood Count 3.44 10^3/uL (4.4-10.8) L 02/04/23 06:30 Red Blood Count 3.20 10^6/uL (4.36-5.78) L 02/04/23 06:30 Hemoglobin 10.6 g/dL (13.5-17.5) L 02/04/23 06:30 Hematocrit 31.3 % (40.0-50.0) L 02/04/23 06:30 Platelet Count 224 10^3/uL (130-400) 02/04/23 06:30 Venous Blood Lactate 0.8 mmol/L (0.6-1.4) 01/29/23 07:10 Complete Metabolic Panel: Sodium 137 mmol/L (136-145) 02/04/23 06:30 Potassium 3.7 mmol/L (3.5-5.1) 02/04/23 06:30 Chloride 103 mmol/L (98-107) 02/04/23 06:30 Carbon Dioxide 25.1 mmol/L (21.0-32.0) 02/04/23 06:30 BUN 18 mg/dL (7-18) 02/04/23 06:30 Creatinine 1.0 mg/dL (0.70-1.30) 02/04/23 06:30 Est GFR (CKD-EPI 2020) 76.56 (mL/min/1.73m2) 02/04/23 06:30 Magnesium 2.3 mg/dL (1.8-2.4) 02/04/23 06:30 Calcium 9.0 mg/dL (8.5-10.1) 02/04/23 06:30 Albumin 2.1 g/dL (3.4-5.0) L 01/30/23 06:20 Glucose 154 mg/dL (74-106) H 02/04/23 06:30 C-Reactive Protein 9.70 mg/dL (0.0-0.3) H 02/04/23 06:30 Liver Function Panel: Alanine Aminotransferase (ALT/SGPT) 28 U/L (16-63) 01/30/23 06:20 Aspartate Amino Transf (AST/SGOT) 36 U/L (15-37) 01/30/23 06:20 Coagulation Panel: INR International Normalized Ratio 1.1 (0.9-1.1) 01/28/23 18:43 Prothrombin Time 11.3 sec (9.1-11.1) H 01/28/23 18:43 Cardiac Panel: No Data to Display Arterial Blood Gas: No Data to Display Venous Blood Gas: No Data to Display Pancreas Panel: No Data to Display Thyroid Panel: No Data to Display Infectious Disease: Coronavirus (COVID-19)(PCR) Negative (Negative) 01/28/23 19:39 Coronavirus 2019 Source Nasal/Nares 01/28/23 19:39 Blood Cultures: No Data to Display Toxicology Panel: No Data to Display Anesthesia Assessment and Plan Anesthesia History Personal History: No History of Anesthesia Complications Family History: No Family History of Anesthesia Complications Exercise Tolerance Exercise Tolerance: Metabolic Equivalents<4 Cardiac & Pulmonary Exam Cardiac Exam: Normal S1/S2 Heart Sounds Pulmonary Exam: Clear Bilateral Breath Sounds Implantable Cardiac Device Does patient have a Pacemaker or an ICD?: No Airway Exam Known Difficult Airway: No Mallampati Class: 3 Mouth Opening: Normal (> 3cm) Thyromental Distance: Greater than 3 cm Neck Range of Motion: Full ROM and Limited ROM Neck Circumference: Normal Teeth Condition: Removable Dentures/Plates Upper and Removable Dentures/Plates Lower ASA Classification ASA Score: ASA 3 Emergency Case?: Yes NPO Status NPO Status: NPO Clears >2 hours, Solids >8 hours Anesthesia Plan Resuscitation Status: Full Code Anesthesia Technique: Primary Nerve Block Airway Planned: Natural Airway Monitors Used: Standard Monitors Preoperative Comments:: 77 yo male with left foot infection to OR for washout. Currently on the floor, is in a lot of pain with any touching or movement of his foot. [facility] [place] notes reviewed (easy airway in the past). ECHO: LVEF 55%, bioprostetic AoV WNL. EKG: Sinus. Currently on Plavix for previous CVA. Discussed risks, benefits and alternatives for GA vs regional anesthesia with pat and family. Discussed that regional anesthesia likely good option but risk of bleeding given the plavix. good sciatic view on US with no vessels in needle path. Will proceed with regional for pain control and also primary anesthetic.
--- NOTE | 2023-02-04 12:00 | PT.INNT ---
PT Notes Visit Reasons: Left leg cellulitis Patient headed out to I and D tavon L heel ulcer at time of PT visit. Will check in with patient this afternoon to assess appropriateness for PT session.
[2023-02-04] MEDS: Lactated Ringers 1,000 ML 30 ML IV (12:33)
[2023-02-04] MEDS: ceFAZolin 2 GM/50 ML BAG 100 GM (12:45)
--- NOTE | 2023-02-04 13:00 | W.ANESNERVE ---
Nerve Block Single Injection Procedure Date and Time Date Performed: 02/04/23 Procedure Start: 12:10 Location Where Procedure Performed Procedure Location: PACU Reason Performed: Other Requesting Provider: Chico Abrams Timeout Performed Timeout Performed: Yes Monitoring Used ECG, Blood Pressure and SpO2 Sterility Sterility: Hand Hygiene, Surgical Cap, Surgical Mask, Sterile Gloves and Chlorhexidine Sedation Given During Procedure Sedation Given (Indicate Dose Given): No Sedation given Patient Mental Status Patient Mental Status: Awake Nerve Block 1st Nerve Block: Laterality: Left Block Type: Popliteal Sciatic Ultrasound Image Saved?: Yes Needle / Catheter Used: 100mm SonoPlex II Local Anesthetic Bolus (Indicate Dose Given): Lidocaine used for local infiltration of skin and Bupivacaine 0.5% Dose:: 20 mL Additives (Indicate Dose Given): Epinephrine to make 1:400,000 (2.5mcg/ml) Dose:: 50 Ultrasound: Sterile probe cover and gel used Nerve Stimulator: Supplement to Ultrasound use and No twitch or parasthesia noted < 0.5 mA Paresthesia: None Procedure Tolerated: No Complications Procedure Outcome: Successful Performed By: Chico Abrams 2nd Nerve Block: Laterality: Left Block Type: Adductor Canal Ultrasound Image Saved?: Yes Needle / Catheter Used: 100mm SonoPlex II Local Anesthetic Bolus (Indicate Dose Given): Lidocaine used for local infiltration of skin, Injected in 3-5ml increments after negative blood aspiration and Bupivacaine 0.25% Dose:: 7 mL Additives (Indicate Dose Given): None Ultrasound: Sterile probe cover and gel used Nerve Stimulator: Supplement to Ultrasound use and No twitch or parasthesia noted < 0.5 mA Paresthesia: None Procedure Tolerated: No Complications Procedure Outcome: Successful Performed By: Chico Abrams
--- NOTE | 2023-02-04 13:03 | SOFT_PTH ---
PATIENT: Alvarez Farmer LOC: U#:[id number] AGE/SX: 77/M ROOM: 207 RE01/28/[address]: Tab Becker : 1945 BED: A DIS: 02/09/2023 SPEC #: [id number] RECD: 02/04/23 17:22 STATUS: URIAH REQ #: [id number] GARIMA: 02/04/23 13:[address]: Tab Becker DEPT: Surgical Specimen RECD BY: Do Espino ENTERED: 02/04/23 17:23 SP TYPE: SOFT OTHR DR: Kaelyn Grubbs,Sony Holbrook, DPAdiel [facility] Tissues: 1 - SOFT TISSUE MISC (INC. LIPOMA) Procedures: GROSS AND MICRO LEVEL 4 SPECIAL STAIN 1 Comments: [id number]
--- NOTE | 2023-02-04 13:40 | ROE_ITS ---
Date of service: 02/04/23 Time of Service: 12:30 Operative Note Operative Note DATE OF PROCEDURE: 02/04/23 PRE-OP DIAGNOSIS: Gas gangrene, left heel POST-OP DIAGNOSIS: same PROCEDURE: Incision and debridement, left heel SURGEON: Radha Kowalski ANESTHESIA TYPE: Primary Nerve Block Refer to Anesthesia Record ESTIMATED BLOOD LOSS: 20 PATHOLOGY: other (Soft tissue left foot) COMPLICATIONS: None Patient was transported to: floor Patient's condition: stable Implants: Floseal for hemostasis Indications: This is a 77-year-old patient with history of diabetes history of DVT, UTI, dementia, stroke, MRSA colonization seen in hospital on 02/03/2023 consulted for left lower extremity ulcer. Patient was noted to have wet gangrene upon examination to the left heel. The area of necrosis nearly covers the entire left heel medial more than lateral. I decision was made to get further imaging and plan OR wound debridement. Patient was n.p.o. midnight. No contraindications were noted to the procedure. Plavix was held this morning. I discussed the risks benefits and possible complications of the procedure with the patient and his family. I discussed risks consisting of pain, nerve pain, burning pain, CRPS, PE, DVT, PA, stroke or even with anesthesia, risk for delayed healing, nonhealing, wound complications, possibility of an amputation. No guarantees or warranties were made or implied. Chart was reviewed prior to the procedure. MRI and x-ray findings were reviewed. Findings: Extensive necrotic tissue to the plantar tear and posterior aspect of the left heel. The wound postdebridement measures 5.5 x 3.8 x 0.5 cm. Heavy malodor no carlos to the wound. There is bleeding noted however likely secondary to Plavix use at this time no active arterial bleed noted. Procedure Description: Patient was identified in preop holding. The left lower extremity was marked. Consent form consent was signed reviewed and in chart. Patient received a popliteal and abductor canal block by the anesthesia team in preop holding. Patient was then brought to the operating room placed on the operating table in supine position with the OR team. After very light sedation, a tourniquet was applied about the left ankle (the ankle tourniquet was not inflated throughout the procedure). The left lower extremity was then scrubbed prepped and draped in the usual aseptic manner. A timeout was carried out. Next, using a sterile #15 blade all necrotic nonviable tissue from the left heel was excised surgically and passed from the operative field. The specimen was sent for soft tissue cultures and pathology. Heavy necrotic tissue was noted to the wound bed. There is fat pad necrosis noted as well there was no evidence for abscess or soft tissue emphysema surgically. There was heavy malodor noted to the wound. There was bleeding noted to the wound however this was likely secondary to recent Plavix use. Upon removal of all necrotic nonviable tissue the wound was flushed with 3 mL normal saline via cystoscopy tubing. Hemostasis was achieved with pressure, electrocautery, Floseal application. Dressings were then applied with Adaptic, 4 x 4 gauze, Kerlix, Les wrap. Patient tolerated procedure anesthesia well with vital signs stable and vascular status intact to the left lower extremity. Patient was transferred to the floor. The patient is to keep the leg dressings clean dry and intact. Patient is to keep the left lower extremity elevated at all times. Nursing may reinforce dressings if there is strikethrough. We will continue to follow. Patient will benefit from further vascular testing due to wet gangrene poor pulses and minimal bleeding intraoperatively which poses risk for amputation.
--- NOTE | 2023-02-04 13:43 | W.ANESPOSTOP ---
Postoperative Evaluation Date, Time and Location Date Performed: 02/04/23 Time Performed: 13:43 Patient Location: Med/Surg Vital Signs Most Recent Imported Vital Signs: Most Recent Vital Signs Temp Pulse Resp BP Pulse Ox 37.1 C 73 20 137/51 L 97 02/04/23 12:31 02/04/23 12:31 02/04/23 12:31 02/04/23 12:31 02/04/23 12:31 Most Recent Manually Entered Vital Signs: Adult Blood Pressure: 134/70 Heart Rate: 70 Respirations: 16 Oxygen Saturation (%): 99 Temperature (C): 36.2 C Pain Score (0-10 Scale): 0 Pain Score Most Recent Pain Score: Most Recent Pain Score Pain Level 0 02/04/23 12:31 Assessment Mental Status: Awake (Alert & Oriented to Patient Baseline) Airway and Respiratory Function: Patent airway with normal (patient baseline) respiratory exam Cardiovascular Function: Hemodynamically Stable Hydration Status: Adequately Hydrated Nausea & Vomiting: No Nausea or Vomiting Pain: Pt. Denies Any Pain Peripheral Nerve Block: Regional nerve block not resolved at time of post operative discharge
[2023-02-04 14:47] LABS: ESR (LRH) 81 mm/hr
--- NOTE | 2023-02-04 17:30 | NUR.NOTE ---
Nursing Note: Patient went to DI for CTA, pt got metformin this AM with morning meds prior to surgery per dr. franklin. Metformin is supposed to be held 72 hours pre CTA; charge nurse notified at this time; to let know.
--- NOTE | 2023-02-04 17:52 | PT.INNT ---
PT Notes Visit Reasons: Left leg cellulitis Patient is S/P I and D of gas gangrene of L heel. In agreement with holding off on PT services for today per Nurse Fay. Will assess appropriateness of resumption of Pt services tomorrow morning.
[2023-02-04] MEDS: Normal Saline - Diluent 50 ML VIAL IJ (17:54)
[2023-02-04] MEDS: Omnipaque 350 MG/ML 100 ML BTL IJ (17:55)
--- NOTE | 2023-02-04 18:07 | DI.VRAD_ITS ---
PROCEDURE INFORMATION: Exam: CTA Abdominal Aorta and Bilateral Lower Extremities (Run-off) With Contrast Exam date and time: 02/04/2023 4:13 PM Age: 77 years old Clinical indication: Other: Gangrene TECHNIQUE: Imaging protocol: Computed tomographic angiography of the of the abdominal aorta, pelvis and bilateral lower extremities with contrast. 3D rendering (Not supervised by radiologist): MIP and/or 3D reconstructed images were created by the technologist. Radiation optimization: All CT scans at this facility use at least one of these dose optimization techniques: automated exposure control; mA and/or kV adjustment per patient size (includes targeted exams where dose is matched to clinical indication); or iterative reconstruction. Contrast material: OMNIPAQUE 350; Contrast volume: 100 ml; Contrast route: INTRAVENOUS (IV); COMPARISON: MR LOWER JOINT LT WO 02/03/2023 5:09 PM FINDINGS: Aorta: No aortic aneurysm. No aortic dissection. Celiac trunk and mesenteric arteries: No occlusion or significant stenosis. Renal arteries: No occlusion or significant stenosis. Right iliac arteries: No occlusion or significant stenosis. Right femoral/popliteal arteries: No occlusion or significant stenosis. Right infrapopliteal arteries: No occlusion or significant stenosis. Left iliac arteries: No occlusion or significant stenosis. Left femoral/popliteal arteries: No occlusion or significant stenosis. Left infrapopliteal arteries: No occlusion or significant stenosis. Liver: No mass. Gallbladder and bile ducts: Unremarkable. No calcified stones. No ductal dilation. Pancreas: Unremarkable. No mass. No ductal dilation. Spleen: Normal. No splenomegaly. Adrenal glands: Normal. No mass. Kidneys and ureters: Normal. No mass. Stomach and bowel: Unremarkable. No obstruction. No mucosal thickening. Appendix: No evidence of appendicitis. Urinary bladder: The urinary bladder is decompressed by a Andres catheter. . Reproductive: Unremarkable as visualized. Intraperitoneal space: Unremarkable. No free air. No significant fluid collection. Lymph nodes: No lymphadenopathy. Bones/joints: No acute fracture. No dislocation. Left hip arthroplasty. Left knee arthroplasty noted Soft tissues: Subcutaneous emphysema in the left distal thigh tissues. Postsurgical changes in the left lateral thigh tissues. Swelling of the distal leg, lateral ankle and dorsal foot tissues IMPRESSION: Unremarkable CTA abdomen, pelvis and lower extremities. Left-sided cellulitis. No definite abscess or CT evidence for osteomyelitis Non-specific minimal amount of air in the anterior left thigh tissues. Correlate for recent instrumentation versus gas producing infection. Dictated and Authenticated by: Truman Gonzalez MD. Ordering:AARON Garcia MD
[2023-02-04] MEDS: Atorvastatin 40 MG TAB PO (20:31)
[2023-02-04] MEDS: Normal Saline Flush 10 ML SYR IVP (20:31)
[2023-02-05 03:47] VITALS: BP 129/76; PULSE 71; RESP 16; TEMP 35.7; O2SAT 97
[2023-02-05 06:59] LABS: Abs Immature Grans 0.02 10^3/uL (0.0-0.06); Absolute Basophil Count 0.01 10^3/uL (0.0-0.2); Absolute Eosinophil Count 0.12 10^3/uL (0.0-0.7); Absolute Lymphocyte Count 0.76 10^3/uL (1.2-3.4); Absolute Monocyte Count 0.05 10^3/uL (0.1-0.8); Absolute Neutrophil Count 2.96 10^3/uL (1.2-6.7); Basophils % 0.3; Eosinophils % 3.1; HCT 30.7 % (40.0-50.0); HGB 10.2 g/dL (13.5-17.5); Immature Grans % 0.5; Lymphocytes % 19.4; MCHC 33.2 % (32.0-36.0); MCV 99 fL (80-95); MPV 10.5 fL (8.0-11.0); Monocytes % 1.3; Neutrophils % 75.4; Platelet Count 256 10^3/uL (130-400); RBC 3.09 10^6/uL (4.36-5.78); RDW 13.7 % (11.8-14.1); RDW-SD 49.8 fL; WBC 3.92 10^3/uL (4.4-10.8)
[2023-02-05 07:11] LABS: Anion Gap 7.8 mmol/L (3-11); BUN 16 mg/dL (7-18); CO2 26.2 mmol/L (21.0-32.0); CREATININE 0.9 mg/dL (0.70-1.30); Calcium 8.7 mg/dL (8.5-10.1); Chloride 104 mmol/L (98-107); Estimated GFR 86.88 (mL/min/1.73m2); Glucose 151 mg/dL (74-106); Sodium 138 mmol/L (136-145)
[2023-02-05] MEDS: Magnesium Oxide 400 MG TAB PO ×2 (08:17→20:44)
[2023-02-05] MEDS: Clopidogrel 75 MG TAB PO (08:17)
[2023-02-05] MEDS: Multivitamin TAB 1 TAB PO (08:17)
[2023-02-05] MEDS: Linezolid 600 MG TAB PO ×2 (08:18→20:44)
[2023-02-05] MEDS: Insulin Aspart 300 UNITS/3 ML PEN SC ×3 (08:18→17:17)
[2023-02-05 08:29] LABS: Lab Add On Test DONE
[2023-02-05 08:41] LABS: C-Reactive Protein 7.49 mg/dL (0.0-0.3)
[2023-02-05 08:50] VITALS: BP 158/77; PULSE 70; RESP 18; TEMP 36; O2SAT 95
[2023-02-05 09:23] LABS: Procalcitonin < 0.1 ng/mL
[2023-02-05] MEDS: Normal Saline Flush 10 ML SYR IVP (11:33)
[2023-02-05 11:37] VITALS: BP 158/64; PULSE 66; RESP 18; TEMP 36.3; O2SAT 99
--- NOTE | 2023-02-05 11:39 | CMPROGNOTE_ITS ---
Date of service: 02/05/23 Time of Service: 11:40 Care Management Progress Note Progress Note Text Progress Note Text: S/O: Alvarez was sitting up in bed when CM met with him. He reported that he is feeling ok today, but that he has not been able to work well with PT. CM discussed this with PT, who stated that his mobility is limited by his wound, which was recently debrided in the OR. CM reviewed his plan, which will be for Alvarez to return to [facility] once he is medically cleared, which he is agreeable to. CM will continue to follow. A: Alvarez is a 77 year old male admitted to [facility] on 01/28/23 for left leg cellulitis. P: Anticipate Alvarez will return to [facility] once medically cleared. CM will coordinate transport via facility w/c van. He will follow up with facility providers and his discharge plan of care. CM will continue to follow.
--- NOTE | 2023-02-05 16:09 | PGE_ITS ---
Date of Service Date of service: 02/05/23 Time of Service: 12:30 Assessment and Plan Assessment and plan (1) Wet gangrene: Status: Acute (2) Diabetic wet gangrene of the foot: Status: Acute (3) Unstageable pressure ulcer of left heel: Status: Acute (4) Dementia: Status: Chronic (5) Stroke: Status: Chronic (6) Type 2 diabetes mellitus: Status: Chronic (7) Diabetic foot ulcer: Status: Acute Assessment and plan: Patient was seen and evaluated bedside today. He is status post OR I&D date of surgery 02/04/2023. Chart was reviewed. Cultures from 02/04/2023 demonstrate group C strep. We will continue Zyvox. CT scan was ordered. I discussed the CTA with Dr. Martini who suspects there is no flow to the left lower extremity below the popliteal level; official report pending. With poor flow below the level of the knee there is high chance of worsening infection osteomyelitis and limb loss to the left lower extremity. I recommend transfer to [facility] vascular service. I called [facility] transfer line and discussed the case with them. They are at capacity and unable to accept the patient. I called [facility], they stated they are at capacity however will call us back. Dressings were changed today with Xeroform gauze, 4 x 4, Kerlix and an Les wrap. I recommend application of a wound VAC to the left heel at this time. Wound care consult was placed. An order was placed for wound VAC. Patient is to remain non-weightbearing to the left lower extremity. He may toe-touch for transfers. Patient is OK to be transferred for Vascular from a Podiatric standpoint. Will continue the wound VAC upon transfer/ discharge. I discussed the case with the medicine team whose recommendations are appreciated. We will continue to follow. Thank you for allowing me to participate in this patient's care Subjective Subjective Interval history since last seen: Patient is seen bedside today. Resting comfortably. Patient is seen eating his food. He appears in no apparent distress. He states he is not doing okay, I have to take a crap. Denies pain to his left lower extremity. Denies nausea vomiting chills fever or diarrhea. Overall appears to be doing better. Exam Extrem Other: Bilateral lower extremity physical exam: Derm: Skin is warm dry and supple bilaterally. There is a 5.5 x 3.8 x 0.5 cm full-thickness ulceration noted to the plantar medial and posterior aspect of the left heel, there is exposed fat pad noted the base is slightly granular however mostly fat pad with some necrosis/black discoloration consistent with electrocautery use, no periwound erythema there is edema noted to the left lower extremity, no proximal streaking no fluctuance no malodor today no palpable abscess no crepitus no probe to bone. Edema overall evidence resolving to the left foot. Vascular: DP PT pulses are nonpalpable bilateral lower extremity however dopplerable. MSK muscle strength testing deferred today. There is pain on palpation noted to the left heel. Neuro: Light touch sensation noted to be absent bilaterally Objective Last Vital Signs Temp 97.3 F L 02/05/23 11:37 Pulse 66 02/05/23 11:37 Resp 18 02/05/23 11:37 BP 158/64 H 02/05/23 11:37 Pulse Ox 99 02/05/23 11:37 Laboratory Results - last 24 hr 02/05/23 02/05/23 06:10 08:00 WBC 3.92 L Cancelled RBC 3.09 L Cancelled Hgb 10.2 L Cancelled Hct 30.7 L Cancelled MCV 99 H Cancelled MCH 33.0 Cancelled MCHC 33.2 Cancelled RDW 13.7 Cancelled Plt Count 256 Cancelled MPV 10.5 Cancelled Immature Gran % 0.5 Cancelled Neutrophils % 75.4 Cancelled Band Neutrophils % Cancelled Lymphocytes % 19.4 Cancelled Atypical Lymphs % Cancelled Monocytes % 1.3 Cancelled Eosinophils % 3.1 Cancelled Basophils % 0.3 Cancelled Metamyelocytes % Cancelled Myelocytes % Cancelled Promyelocytes % Cancelled Other Cells % Cancelled Nucleated RBC % 0.0 Cancelled Absolute Neutrophils 2.96 Cancelled Absolute Lymphocytes 0.76 L Cancelled Absolute Monocytes 0.05 L Cancelled Absolute Eosinophils 0.12 Cancelled Absolute Basophils 0.01 Cancelled RBC Morphology Cancelled Polychromasia Cancelled Hypochromasia Cancelled Poikilocytosis Cancelled Basophilic Stippling Cancelled Anisocytosis Cancelled Microcytosis Cancelled Macrocytosis Cancelled Spherocytes Cancelled Tear Drop Cells Cancelled Ovalocytes Cancelled Stomatocytes Cancelled Story-[place] Bodies Cancelled Colton Cells/Echinocytes Cancelled Acanthocytes (Spur) Cancelled Schistocytes Cancelled Sodium 138 Cancelled Potassium 4.0 Cancelled Chloride 104 Cancelled Carbon Dioxide 26.2 Cancelled Anion Gap 7.8 Cancelled BUN 16 Cancelled Creatinine 0.9 Cancelled Est GFR (CKD-EPI 2020) 86.88 Cancelled Glucose 151 H Cancelled Calcium 8.7 Cancelled Magnesium Cancelled C-Reactive Protein 7.49 H Cancelled Procalcitonin < 0.1 Add-On Test Request DONE Time Spent with Patient Time Spent with Patient: >50 minutes Time was spent: preparing to see the patient(eg.review tests), obtaining and/or reviewing separately otained hiistory, ordering medications,tests, procedures, referring, communicating with other health child caregiver, indepentently interpreting results, counseling the patient and care coordination
--- NOTE | 2023-02-05 16:17 | W.PM.PROGNOT ---
Date of Service Date of service: 02/05/23 Time of Service: 16:18 Assessment and Plan Assessment and plan (1) Diabetic foot ulcer: Status: Acute Assessment and plan: post op day 1 surgical debridement by podiatry, no evidence of osteomyelitis awaiting surgical cultures continue antibiotics for now. will follow inflammatory markers (2) PAD (peripheral artery disease): Status: Acute Assessment and plan: Dr Kowalski discussed case with vascular surgery at [facility] and we need to arrange outpatient appointment for evaluation and further recommendations. Dr Quinones will see him in outpatient clinic in one week. CT ABD AORTA CTA W RUNOFF IMPRESSION: 1. 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 2. 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 3. Extensive atherosclerosis. No evidence of dissection or aneurysm. 4. No evidence of abscess. (3) Cellulitis of left lower limb: Status: Acute Assessment and plan: resolving on current antibiotic course. (4) Stroke: Status: Chronic Assessment and plan: H/o cerebrovascular disease with admission 2 months ago concerning for TIA. New cerebrovascular disease was discovered on MRI, but findings were not c/w his symptoms and Dr. Fernandez treated with 30 days of DAPT followed by clopidogrel. Plan remains the same Will continue the clopidogrel and his atorvastatin per Dr. Fernandez's recommendations. (5) Type 2 diabetes mellitus: Status: Chronic Assessment and plan: A1c 7.2 in October without medications, on metformin, blood glucose monitorin with SS insulin coverage might have a history of hypoglycemia re: Glucagon on his medication list. . continue current regimen and monitoring (6) CAD (coronary artery disease): Assessment and plan: We will continue statin/clopidogrel. no ACS symptoms reported (7) Dementia: Status: Chronic Assessment and plan: Monitor and try to manage behaviorally.Patient remains cooperative despite baseline confusion. no behavioral issues (8) Psoriasis: Assessment and plan: Previously seen areas on buttocks and back where there is pressure with positive blanching. We will continue repositioning as per nursing protocol Diffuse rash, most likely from psoriasis. will add his home hydrocortisone cream (9) DVT prophylaxis: Status: Acute Assessment and plan: We will continue Lovenox (10) Discharge planning issues: Status: Acute Assessment and plan: will return to [facility] once medically stable. discussed with DR Da Silva Subjective Subjective Patient reports: no new complaints, feels better, tolerating liquids well, tolerating a regular diet and afebrile Interval history since last seen: marked decrease in swelling to left lower extremity, no erythema noted above dressing. dressing is clean dry and intact. Exam Const General: cooperative, comfortable and well developed Nutritional Appearance: well nourished and overweight Orientation: alert, awake and confused [facility] Head: normal to inspection, normocephalic and atraumatic General nose exam: external nose normal Face and sinus: normal facial exam and face symmetric Mouth: mucous membranes dry (appears dry) Eyes General: appearance normal, both eyes and all related structures (EOM intact, PERRLA) Neck Neck: normal visual inspection and full ROM Resp Effort & Inspection: normal respiratory effort, able to speak in complete sentences and no respiratory distress Cardio Rate: regular rate Rhythm: regular rhythm GI Palpation: soft Skin Rashes: no rashes and other (dressing to LLE intact, no drainage, ) Other: old healed surgical incision on left knee, denies pain to movement of left knee. Neuro General: patient alert and patient awake Cognition: abnormal cognition Gait: other (did not assess gait) Objective Last Vital Signs Temp 36.3 C L 02/05/23 11:37 Pulse 66 02/05/23 11:37 Resp 18 02/05/23 11:37 BP 158/64 H 02/05/23 11:37 Pulse Ox 99 02/05/23 11:37 Laboratory Results - last 24 hr 02/05/23 02/05/23 06:10 08:00 WBC 3.92 L Cancelled RBC 3.09 L Cancelled Hgb 10.2 L Cancelled Hct 30.7 L Cancelled MCV 99 H Cancelled MCH 33.0 Cancelled MCHC 33.2 Cancelled RDW 13.7 Cancelled Plt Count 256 Cancelled MPV 10.5 Cancelled Immature Gran % 0.5 Cancelled Neutrophils % 75.4 Cancelled Band Neutrophils % Cancelled Lymphocytes % 19.4 Cancelled Atypical Lymphs % Cancelled Monocytes % 1.3 Cancelled Eosinophils % 3.1 Cancelled Basophils % 0.3 Cancelled Metamyelocytes % Cancelled Myelocytes % Cancelled Promyelocytes % Cancelled Other Cells % Cancelled Nucleated RBC % 0.0 Cancelled Absolute Neutrophils 2.96 Cancelled Absolute Lymphocytes 0.76 L Cancelled Absolute Monocytes 0.05 L Cancelled Absolute Eosinophils 0.12 Cancelled Absolute Basophils 0.01 Cancelled RBC Morphology Cancelled Polychromasia Cancelled Hypochromasia Cancelled Poikilocytosis Cancelled Basophilic Stippling Cancelled Anisocytosis Cancelled Microcytosis Cancelled Macrocytosis Cancelled Spherocytes Cancelled Tear Drop Cells Cancelled Ovalocytes Cancelled Stomatocytes Cancelled Story-[place] Bodies Cancelled Jennifer Cells/Echinocytes Cancelled Acanthocytes (Spur) Cancelled Schistocytes Cancelled Sodium 138 Cancelled Potassium 4.0 Cancelled Chloride 104 Cancelled Carbon Dioxide 26.2 Cancelled Anion Gap 7.8 Cancelled BUN 16 Cancelled Creatinine 0.9 Cancelled Est GFR (CKD-EPI 2020) 86.88 Cancelled Glucose 151 H Cancelled Calcium 8.7 Cancelled Magnesium Cancelled C-Reactive Protein 7.49 H Cancelled Procalcitonin < 0.1 Add-On Test Request DONE Time Spent with Patient Time Spent with Patient: 35-49 minutes Time was spent: preparing to see the patient(eg.review tests), obtaining and/or reviewing separately otained hiistory, ordering medications,tests, procedures, referring, communicating with other health manager care management, indepentently interpreting results and care coordination
--- NOTE | 2023-02-05 17:37 | PT.INPN ---
PT Notes Visit Reasons: Left leg cellulitis Physical Therapy Inpatient Progress Note Date: 02/05/2023 Dates of Service: 01/29/2023 through 02/05/2023 Referring Doctor: Tab Becker MD PT Orders: PT CONSULT: Fall safety assessment. Exacerbation Chronic Cond Precautions: Fall.?On?contact Precautions. Activity as tolerated. Per order of Dr. Kowalski, heel may touch floor for balance for transfers only. Patient Profile/Admitting Diagnosis:Mansoor Pino is a 77-year-old male resident of [facility] with past medical history significant for CVA and dementia admitted due to cellulitis of left lower limb, diabetic foot ulcer, new CVA, type 2 diabetes mellitus, CAD, dementia, and psoriasis. PMHX: All Active Problems? Discharge planning issues (Acute) DVT prophylaxis (Acute) Diabetic foot ulcer (Acute) Cellulitis of left lower limb (Acute) Weight loss (Acute) UTI (urinary tract infection) (Acute) Stroke (Chronic) Dementia (Chronic) Nonspecific paroxysmal spell (Acute) Brain TIA (Acute) Stenosis of right middle cerebral artery (Acute) MRSA colonization (Acute) Type 2 diabetes mellitus (Chronic) Medical History? Ambulatory dysfunction Anemia, mild BPH (benign prostatic hyperplasia) CAD (coronary artery disease) CHF (congestive heart failure) Diabetes Dizziness and giddiness E coli infection GERD (gastroesophageal reflux disease) HLD (hyperlipidemia) Hypercholesteremia Hyperglycemia Hypertension Memory changes Middle cerebral artery stenosis Mobility impaired Neuropathy Obesity Psoriasis Rash Sepsis secondary to UTI Tachy-sara syndrome Tinea corporis Urinary incontinence Surgical History? H/O hernia repair H/O surgical procedure a.? Aortic valve replacement 04/2013 b.? left THR 10/04/2013 c.? Left TKR 6-7 years ago Hx of CABG S/P appendectomy S/P AVR (aortic valve replacement) 04/2013S/P knee replacement Social History/Home Situation: SNF resident. Equipment Owned/DME: FWW,? wheelchair Subjective: Patient able to reply to PT when asked but unable to execute movement that patient said he would do-- this has happened last week and for today's session which prompted a call to therapy dept of [facility]. Per phone conversation with therapy staff at [facility] where patient came from, patient was walking from his room to the dining room (at least about 100 feet) using the FWW about a month or two ago and that a referral was made to PT at [facility] two days prior to admission to this hospital due to functional mobility decline. Objective: General Observation: Resting in bed.? Andres catheter in place. Erythema and swelling to left leg and foot. Intact boggy blister/wound on left heel. Mental Status: Alert and oriented as to person. Able to follow single-step commands.? Delayed movement initiation, slowed movement execution. Pain: Moderate to severe pain in L LE when moved Vital Signs: Closely monitored by nursing staff ROM: Right Upper Extremity: ? Grossly 3/5 Left Upper Extremity:? Grossly 3/5 Right Lower Extremity: Grossly 2-/5 Left Lower Extremity: Grossly 2-/5 Strength: Right Upper Extremity: Grossly 3/5 Left Upper Extremity: Grossly 3/5 Right Lower Extremity: Grossly 3/5 Left Lower Extremity: Grossly 3/5 Bed Mobility/Transfers: Supine to sit unable to execute movement despite maximal verb/visual/tactile cueing Sit to stand deferred Sit to stand deferred Stand to sit deferred Bed to reclining chair deferred Gait: Unable and unsafe. Impaired ability to initiate/excute/complete movement despote heavy cueing Balance: Static Sitting: Good Dynamic Sitting: Fair Static Standing: Fair Dynamic Standing: Fair Special Tests: Mobility Limitations Standardized Measure [facility] 6 clicks Basic Mobility Inpatient Short Form: Raw Score: 9 ? CMS Score: 81% deficit ? Rapid Alternating movement: Unable to test 4-Stage Balance Test: Unable and unsafe to test Informed Consent/Education:? Patient was instructed in purpose of PT consult and plan of care.? Patient is okay with PT working with him. ASSESSMENT: Delayed to absent movement initiation, execution, and completion resulting from previous CVAs/TIAs and dementia. Called in Nurse Brown to witness and provide assist as needed to mobilize patient but patient appeared unwilling and unable to participate. In light of rapid mobility decline, PT will continue to monitor and engage patient to slowly participate while on admission. Ensure that pain medications are given so that anxiety with movement due to pain is minimized. All goals have been downgraded as seen below. Patient presents with clinical signs and symptoms consistent with current/admitting diagnoses that have resulted to mobility limitations, gait instability, generalized weakness, and overall ADL decline as demonstrated by the following impairment level findings: 1.? Decreased strength to B UE/LE major muscle groups 2.? Impaired sitting/standing balance 3.? Impaired activity tolerance 4.? Cellulitis in L leg and foot Impairments are contributing to the following functional limitations: 1.? Decline in bed mobility skills 2.? Decline in transfer skills 3.? Difficulty with ambulation without assistive device and physical assistance 4.? Increased completion time for mobility ADL performance 5.? Increased risk for falls 6.? Difficulty with managing steps alone safely Patient is assessed as a 63568 high complexity based on the following: History: 77-year-old male with past medical history as indicated above Examination: Demonstrable impairment in strength, balance, and mobility level with underlying impairments and functional limitations as exhibited above as well as deficit score of 81% utilizing the [facility] Mobility Inpatient Short Form Presentation: Evolving Decision Makin high complexity Goals: Goals X1 week 1. Supine-Sit supervision DOWNGRADE to minimal assist as of today 2. Sit-Supine supervision DOWNGRADE to minimal assist as of today 3. Sit-Stand contact guard assist with FWW DOWNGRADE to minimal assist as of today 4. Stand-Sit contact guard assist with FWW DOWNGRADE to minimal assist as of today 5. Bed-Chair contact guard assist with FWW DOWNGRADE to minimal assist as of today 6. Chair-Bed contact guard assist with FWW DOWNGRADE to minimal assist as of today 7. Contact guard assist with gait on level surface with use of FWW for at least 50 feet without report of pain nor dyspnea DOWNGRADE to minimal assist as of today 8. Good static and dynamic standing balance/tolerance DOWNGRADE to FAIR as of today Plan of Care/Treatment Plan: 1-2x/day, 7 days/week x 1 week. Plan of care has been reviewed with the INSTRUCTIONAL TECHNOLOGIST providing the service under Physical Therapy direction. Initiate Physical Therapy intervention for pain management as needed, strengthening, bed mobility, transfers, gait, stairs, balance training, and use of assistive device. DISCHARGE RECOMMENDATIONS: [] ? Home with no services [] [] ? Home with services [specify] [] ? Home with outpatient PT [] [] ? SNF for continued rehabilitation [] [] ? [facility] [] [] ? SNF versus LTC based on ability to participate and progress [] [X] ? Return to SNF whenever cleared by hospitalist TREATMENT CODE/TIME: 47570 x 38 minutes (3 units) beginning at 9:55 AM. Thank you for the opportunity to participate in the care of this patient. Lorna Traore PT, DPT, CLT [facility] [place], [place]
[2023-02-05] MEDS: Atorvastatin 40 MG TAB PO (20:44)
--- NOTE | 2023-02-05 20:44 | WOUNDCONS_ITS ---
Date of service: 02/05/23 Time of Service: 18:45 Wound Initial Evaluation Narrative Narrative: Follow up to a consult on patient last week. He has since had a surgical debridement d wound nursing has been asked to apply a wound vac in the nest step of treatment. Old dressing was removed, the area was cleaned, then measured. Photograph was taken for the patient record. After that 1 piece of black foam was cut and fit into the wound bed. Drape was cut to fit over the foam. Foam was secured, and the vacuum was applied. Patient did have some discomfort wi th the process. Pain was relieved after the dressing was applied Body Four View: 2 1. surgical debidement Wound left heel: Wound Type: Other (surgical debridement) Wound General Appearance: Reddened, Bleeding and Unapproximated Wound Bed Greatest Portion: Red (Granulation) Wound Surrounding Tissue Appearance: Red [place] Percent of Wound Bed Granulated/Red: 100 Wound Length: 3.8 cm Wound Width: 5 cm Wound Depth: 0.6 cm Wound Drainage Amount: Minimal Wound Drainage Odor: None/Absent Wound Drainage Description: Bloody Wound Topical Solution/Irrigant: Saline Irrigant Wound Debridement Method: Gauze Wound Debridement Result: Healthy Tissue Revealed Wound Debridement Amount of Tissue Removed: Minimal Circulation, Sensation, Motion Edema Degree: 3+ Peripheral Pulse Strength: Weak Capillary Refill: Greater than 3 seconds Sensation Description: Pain (with debridement) Skin Temperature: Warm Skin Color: Normal RONNIE Comment:: na Pain Pain Level: 6 Pain Scale Used: Morton-Briseno Faces Pain Description: Sharp Pain Duration (Hours): 0 Pain Duration/Frequency: With Palpation and Other (cleaning and dressing change) Wound Summary Wound Summary: Wound vac was applied, continue to monitor and support patient Photo Photo: Treatment/Dressing Change Topicals/Ointments: None Cleanse With: Saline Dressing Types: Other (npwt) Nutrition Education Reviewed Nutrition Education: No Recomendation Recomendation:: followed provider order for application of wound vac Treatment Time Time Total Time Spent with Patient: 1 hour Patient Will be Seen Weekly Treatment: 3x/wk For: For:: 1 week
[2023-02-05 23:30] VITALS: BP 137/72; PULSE 75; RESP 16; TEMP 36.5; O2SAT 98
[2023-02-06 06:54] LABS: Abs Immature Grans 0.01 10^3/uL (0.0-0.06); Absolute Basophil Count 0.01 10^3/uL (0.0-0.2); Absolute Eosinophil Count 0.13 10^3/uL (0.0-0.7); Absolute Lymphocyte Count 0.61 10^3/uL (1.2-3.4); Absolute Monocyte Count 0.06 10^3/uL (0.1-0.8); Basophils % 0.3; Eosinophils % 3.4; HGB 10.2 g/dL (13.5-17.5); Immature Grans % 0.3; Lymphocytes % 15.8; MCH 32.8 pg (27.0-33.0); MCHC 32.9 % (32.0-36.0); MCV 100 fL (80-95); MPV 10.2 fL (8.0-11.0); Monocytes % 1.6; Neutrophils % 78.6; Platelet Count 271 10^3/uL (130-400); RBC 3.11 10^6/uL (4.36-5.78); RDW 13.6 % (11.8-14.1); RDW-SD 49.3 fL; WBC 3.87 10^3/uL (4.4-10.8)
[2023-02-06 07:02] LABS: Absolute Neutrophil Count 3.04 10^3/uL (1.2-6.7)
[2023-02-06 07:09] LABS: Anion Gap 8.3 mmol/L (3-11); BUN 16 mg/dL (7-18); C-Reactive Protein 4.76 mg/dL (0.0-0.3); CO2 27.7 mmol/L (21.0-32.0); Chloride 102 mmol/L (98-107); Estimated GFR 76.56 (mL/min/1.73m2); Glucose 173 mg/dL (74-106); Magnesium 2.2 mg/dL (1.8-2.4); Sodium 138 mmol/L (136-145)
[2023-02-06] MEDS: Linezolid 600 MG TAB PO ×2 (08:06→20:09)
[2023-02-06] MEDS: Magnesium Oxide 400 MG TAB PO ×2 (08:06→20:09)
[2023-02-06] MEDS: Multivitamin TAB 1 TAB PO (08:06)
[2023-02-06] MEDS: Clopidogrel 75 MG TAB PO (08:06)
[2023-02-06] MEDS: Insulin Aspart 300 UNITS/3 ML PEN SC ×3 (08:07→16:22)
[2023-02-06] MEDS: Hydrocortisone 1% CR 30 GM TUBE TP ×2 (08:09→11:46)
[2023-02-06 08:40] VITALS: BP 147/84; PULSE 95; RESP 20; TEMP 35.9; O2SAT 99
--- NOTE | 2023-02-06 08:52 | CMPROGNOTE_ITS ---
Date of service: 02/06/23 Time of Service: 08:52 Care Management Progress Note Progress Note Text Progress Note Text: S/O: Alvarez was lying in bed and appears to be sleeping when CM met with him. Per RN, Alvarez's Wound vac that was placed yesterday was leaking and needed to be removed. Dr. Kowalski has asked that wound nurse come back to try to reapply the vac. Transfer to tertiary hospital is recommended by Podiatry for his arterial occlusions. Per Dr. Kowalski, [facility] has agreed to accept him in transfer on Friday under Dr. Miramontes in vascular. CM notified JESS Moreno @ [facility]. CM will follow. A: Alvarez is a 77 year old male admitted to [facility] on 01/28/23 for left leg cellulitis. P: [facility] Vascular has accepted Alvarez in transfer on Friday under Dr. Miramontes. Participate, Alvarez will return to [facility] once medically ready. CM updated [facility]. CM will continue to follow.
--- NOTE | 2023-02-06 09:05 | OT.INTREAT ---
Occupational Therapy Notes Occupational Therapy Inpatient Treatment Note Date: 02/06/23 PRECAUTIONS: Fall, contact, DNR/DNI SUBJECTIVE: Pt was lying in bed with food elevated. He notes that he is doing well. He is pleasantly confused. OBJECTIVE: PAIN:pt states that he has no pain. BATHING: Lying in bed with max (A) setup and mod vc Upper Body: (I) washing face and (B) UE Lower Body: OT provided pt vc for task initiation which he was not able to perform even with vc. GROOMING: OT had pt perform oral hygiene with max set up/clean up he required vc for task initiation and execution. PLAN: Pt requires (A) at baseline but does require increased task performance time and processing for multi step directions. TREATMENT CODES/TIME: 89764, 17 minutes JONG Pride/Nayeli
--- NOTE | 2023-02-06 09:28 | PGE_ITS ---
Date of Service Date of service: 02/06/23 Time of Service: 08:15 Assessment and Plan Assessment and plan (1) Wet gangrene: Status: Acute (2) Diabetic wet gangrene of the foot: Status: Acute (3) Unstageable pressure ulcer of left heel: Status: Acute (4) Dementia: Status: Chronic (5) Stroke: Status: Chronic (6) Type 2 diabetes mellitus: Status: Chronic (7) Diabetic foot ulcer: Status: Acute Assessment and plan: Patient was seen and evaluated bedside today. He is status post OR I&D date of surgery 02/04/2023. Chart was reviewed. Cultures from 02/04/2023 demonstrate group C strep. We will continue Zyvox. CT scan demonstrates diminished to nearly absent flow to the left lower extremity below the level of the knee. I recommend transfer to [facility] vascular service again today requesting transfer. Dr. Miramontes from [facility] who is a vascular surgeon has accepted the patient however would like to transfer the patient on Friday and will then perform an angio on Friday. They will coordinate care. I have requested revascularization if indicated and further information on circulation versus level of amputation/healing potential from a vascular standpoint. Their recommendations and assistance is greatly appreciated. The wound VAC was reapplied today however the leak persisted. Dressings were then changed to dry sterile dressing by the floor nurses. The wound care team was contacted again and reportedly were able to successfully apply wound VAC at this time. Patient is to remain non-weightbearing to the left lower extremity. He may toe- touch for transfers. Patient is OK to be transferred for Vascular from a Podiatric standpoint. Will continue the wound VAC upon transfer/ discharge. I discussed the case with the medicine team whose recommendations are appreciated. We will continue to follow. Thank you for allowing me to participate in this patient's care Subjective Subjective Interval history since last seen: Patient was seen bedside today resting comfortably eating his breakfast. He reports pain to the left lower extremity. Offers no new pedal complaints. Denies nausea vomiting chills fever or diarrhea. Exam Extrem Other: Bilateral lower extremity physical exam: Derm: Skin is warm dry and supple bilaterally. Wound VAC was noted to be intact however with a leak and beeping. there is a 5.5 x 3.8 x 0.5 cm full-thickness ulceration noted to the plantar medial and posterior aspect of the left heel, there is exposed fat pad noted the base is slightly granular however mostly fat pad with some necrosis/black discoloration consistent with electrocautery use, no periwound erythema there is edema noted to the left lower extremity, no proximal streaking no fluctuance no malodor today no palpable abscess no crepitus no probe to bone. Edema overall evidence resolving to the left foot. There is increased skin sloughing noted however no purulence no drainage no malodor noted at this time. Vascular: DP PT pulses are nonpalpable bilateral lower extremity however dopplerable. MSK muscle strength testing deferred today. There is pain on palpation noted to the left heel. Neuro: Light touch sensation noted to be absent bilaterally Objective Last Vital Signs Temp 97.7 F 02/05/23 23:30 Pulse 75 02/05/23 23:30 Resp 16 02/05/23 23:30 BP 137/72 02/05/23 23:30 Pulse Ox 98 02/05/23 23:30 Laboratory Results - last 24 hr 02/06/23 06:06 WBC 3.87 L RBC 3.11 L Hgb 10.2 L Hct 31.0 L MCV 100 H MCH 32.8 MCHC 32.9 RDW 13.6 Plt Count 271 MPV 10.2 Immature Gran % 0.3 Neutrophils % 78.6 Lymphocytes % 15.8 Monocytes % 1.6 Eosinophils % 3.4 Basophils % 0.3 Nucleated RBC % 0.0 Absolute Neutrophils 3.04 Absolute Lymphocytes 0.61 L Absolute Monocytes 0.06 L Absolute Eosinophils 0.13 Absolute Basophils 0.01 Sodium 138 Potassium 4.0 Chloride 102 Carbon Dioxide 27.7 Anion Gap 8.3 BUN 16 Creatinine 1.0 Est GFR (CKD-EPI 2020) 76.56 Glucose 173 H Calcium 9.0 Magnesium 2.2 C-Reactive Protein 4.76 H Time Spent with Patient Time Spent with Patient: >50 minutes Time was spent: preparing to see the patient(eg.review tests), obtaining and/or reviewing separately otained hiistory, referring, communicating with other health adult caregiver, indepentently interpreting results, counseling the patient and care coordination
--- NOTE | 2023-02-06 11:05 | PT.INTREAT ---
Date of service: 02/06/23 Time of Service: 10:42 PT Notes Visit Reasons: Left leg cellulitis Inpatient Physical Therapy Treatment Note [facility] Date: 02/06/23 PRECAUTIONS: Fall, standard, activity as tolerated. CONTACT PRECAUTIONS. SUBJECTIVE: Patient not verbally responsive today. OBJECTIVE: Supine in bed, initially asleep but wakes easily, agreeable to therapy. RN Stephanie also present. ? PAIN: No pain signals (grunting, grimacing) noted during therapy today. No pain reported. VITALS: monitored by nursing staff Therapeutic Activities ([id number]): Direct one-on-one instruction in dynamic activities to improve functional performance. ? BED MOBILITY/TRANSFERS? Rolling L/R: mod assist of one with one hand at the hip to facilitate a full turn onto patient's side. Supine-sit: Max assist of one to shift legs off of bed, verbal and tactile cues as well as facilitation at the lower (right) shoulder to shift patient from sidelying to sitting. Patient actively assists with bilateral arms. ? Sit-supine: Dependent (max assist of 2) ? Sit-stand: unable? Stand-sit: unable ? Bed-Chair: dependent ? Chair-bed: dependent Provided skilled cues and instruction on performance and technique throughout. ? ASSESSMENT:? Patient tolerates therapy well, returns to supine in bed at end of treatment session. JESS Brown still with patient. PLAN: Continue global strengthening per plan of care to patient tolerance until patient is medically cleared for discharge. TREATMENT CODE/TIME: 21 minutes beginning at 10:42
--- NOTE | 2023-02-06 12:51 | WOUNDCONS_ITS ---
Date of service: 02/06/23 Time of Service: 11:00 Wound Initial Evaluation Narrative Narrative: Bohannon wound vac had failed overnight. Podiatry attempted again this morning, and was unsuccessful in achieving a seal. This wound nurse arrives, and determine both Brandi units are leaking at this time, and should be discontinued. An attempt is made with the Renasys unit. Patient agrees to allow another attempt. Area is cleaned and dried before attempt is made. Area is measured prior to starting to ensure that the foam will fit properly into the wound bed. After this is completed, the foam is cut, and fitted into the wound bed. The drape was prepped prior to starting. Skin prep is generously applied to the Rocio wound skin. Drape was then applied to seal the foam. A small cut is made into the foam to allow the a whole for the suction cup to act upon. Skin prep is generously applied to the drape around the cut to help with the adherence of the suction. After this the suction cup was attached to the canister. Within 30 seconds therapy had been initiated with no leaks detected. Instructions on application to be put in recommendations . Body Four View: 2 1. surgically debrided diabetic ulcer. Wound left heel: Wound Type: Diabetic Ulcer Recomendation Recomendation:: Left heel ulcer. Turn off Renasys system and disconnect pump and canister from the suction cup. Replace canister if more than 2/3 full. Gently remove old dressing. Use alcohol prep pads to loosen edges and to protect skin from damage with removal. Clean wound bed with normal saline and gauze. Pat with dry gauze until fully dry. Cut 1 piece of drape into quarters, as it is easier to manipulate. Measure wound using the clock method. 12-6, 3-9, depth. Cut 1 piece of back foam, using your measurements. At this time, it is appropriate to cut the foam to half thickness, as the wound is less than 1 cm depth. Trim foam to fit in wound bed. Protecting wound bed, generously apply skin prep to the Rocio wound skin. With Black foam in place, apply drape over the piece of black foam to secure it in the wound bed and to apply a seal. Once drape is secure, cut a small hole into the drape into the black foam. Protecting the hole cut, generously apply skin prep to the drape. Apply suction cup over the cut in the drape. Connect suction cup to the canister system. Engage the vacuum, monitor for leaks. Change per provider order, reinforce and change PRN if leakage develops. Offload pressure from above and below, using heels up or booties, and a Halo to keep the bedding of the patients feet. Treatment Time Time Total Time Spent with Patient: 1 hour and 10 minutes
--- NOTE | 2023-02-06 13:31 | PGE_ITS ---
Date of Service Date of service: 02/06/23 Time of Service: 13:31 Assessment and Plan Assessment and plan (1) Diabetic foot ulcer: Status: Acute Assessment and plan: post op day 2 surgical debridement by podiatry, no evidence of osteomyelitis Cultures from 02/04/2023 demonstrate group C strep. We will continue Zyvox. will follow inflammatory markers which are improving. wound care consultation pending. wound vac was to be placed but having difficulty keeping it sealed and intact. awaiting return today (2) PAD (peripheral artery disease): Status: Acute Assessment and plan: Dr Kowalski recommend transfer to [facility] vascular service again today requesting transfer. Dr. Miramontes from [facility] who is a vascular surgeon has accepted the patient however would like to transfer the patient on Friday and will then perform an angio on Friday. They will coordinate care. CT ABD AORTA CTA W RUNOFF IMPRESSION: 1. 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 2. 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 3. Extensive atherosclerosis. No evidence of dissection or aneurysm. 4. No evidence of abscess. (3) Cellulitis of left lower limb: Status: Acute Assessment and plan: resolving on current antibiotic course. (4) Stroke: Status: Chronic Assessment and plan: H/o cerebrovascular disease with admission 2 months ago concerning for TIA. New cerebrovascular disease was discovered on MRI, but findings were not c/w his symptoms and Dr. Fernandez treated with 30 days of DAPT followed by clopidogrel. Plan remains the same Will continue the clopidogrel and his atorvastatin per Dr. Fernandez's recommendations. (5) Type 2 diabetes mellitus: Status: Chronic Assessment and plan: A1c 7.2 in October without medications, on metformin, blood glucose monitorin with SS insulin coverage might have a history of hypoglycemia re: Glucagon on his medication list. . continue current regimen and monitoring (6) CAD (coronary artery disease): Assessment and plan: We will continue statin/clopidogrel. no ACS symptoms reported (7) Dementia: Status: Chronic Assessment and plan: Monitor and try to manage behaviorally.Patient remains cooperative despite baseline confusion. no behavioral issues (8) Psoriasis: Assessment and plan: Previously seen areas on buttocks and back where there is pressure with positive blanching. We will continue repositioning as per nursing protocol Diffuse rash, most likely from psoriasis. will add his home hydrocortisone cream (9) DVT prophylaxis: Status: Acute Assessment and plan: We will continue Lovenox (10) Discharge planning issues: Status: Acute Assessment and plan: anticipate transfer [place] [facility] [place], from there anticipate return to [facility] once medically stable discussed with DR Da Silva Subjective Subjective Patient reports: no new complaints, tolerating liquids well, tolerating a regular diet and afebrile Interval history since last seen: difficulty with wound vac application, Exam Const General: cooperative, comfortable and well developed Nutritional Appearance: well nourished and overweight Orientation: alert, awake and confused [facility] Head: normal to inspection, normocephalic and atraumatic General nose exam: external nose normal Face and sinus: normal facial exam and face symmetric Mouth: mucous membranes dry (appears dry) Eyes General: appearance normal, both eyes and all related structures (EOM intact, PERRLA) Neck Neck: normal visual inspection and full ROM Resp Effort & Inspection: normal respiratory effort, able to speak in complete sentences and no respiratory distress Cardio Rate: regular rate Rhythm: regular rhythm GI Palpation: soft Skin Rashes: no rashes and other (dressing to LLE intact, no drainage, ) Other: old healed surgical incision on left knee, denies pain to movement of left knee. Neuro General: patient alert and patient awake Cognition: abnormal cognition Gait: other (did not assess gait) Objective Last Vital Signs Temp 35.9 C L 02/06/23 08:40 Pulse 95 H 02/06/23 08:40 Resp 20 02/06/23 08:40 BP 147/84 H 02/06/23 08:40 Pulse Ox 99 02/06/23 08:40 Laboratory Results - last 24 hr 02/06/23 06:06 WBC 3.87 L RBC 3.11 L Hgb 10.2 L Hct 31.0 L MCV 100 H MCH 32.8 MCHC 32.9 RDW 13.6 Plt Count 271 MPV 10.2 Immature Gran % 0.3 Neutrophils % 78.6 Lymphocytes % 15.8 Monocytes % 1.6 Eosinophils % 3.4 Basophils % 0.3 Nucleated RBC % 0.0 Absolute Neutrophils 3.04 Absolute Lymphocytes 0.61 L Absolute Monocytes 0.06 L Absolute Eosinophils 0.13 Absolute Basophils 0.01 Sodium 138 Potassium 4.0 Chloride 102 Carbon Dioxide 27.7 Anion Gap 8.3 BUN 16 Creatinine 1.0 Est GFR (CKD-EPI 2020) 76.56 Glucose 173 H Calcium 9.0 Magnesium 2.2 C-Reactive Protein 4.76 H Time Spent with Patient Time Spent with Patient: 35-49 minutes Time was spent: preparing to see the patient(eg.review tests), obtaining and/or reviewing separately otained hiistory, ordering medications,tests, procedures, referring, communicating with other health infant caregiver, indepentently interpreting results and care coordination
[2023-02-06] MEDS: Enoxaparin 40 MG/0.4 ML SYR SC (13:32)
[2023-02-06 15:18] VITALS: BP 132/65; PULSE 69; RESP 18; TEMP 36.5; O2SAT 100
[2023-02-06] MEDS: Normal Saline Flush 10 ML SYR IVP (16:25)
[2023-02-06] MEDS: Atorvastatin 40 MG TAB PO (20:09)
[2023-02-06 20:13] VITALS: BP 115/72; PULSE 64; RESP 16; TEMP 37.3; O2SAT 97
[2023-02-06 20:40] VITALS: BP 139/70; PULSE 71; RESP 18; TEMP 36.4; O2SAT 96
[2023-02-07 03:58] VITALS: BP 130/68; PULSE 67; RESP 18; TEMP 35.6; O2SAT 93
[2023-02-07 08:49] VITALS: BP 124/65; PULSE 71; RESP 18; TEMP 35.7; O2SAT 99
[2023-02-07] MEDS: Normal Saline Flush 10 ML SYR IVP ×2 (09:00→14:04)
[2023-02-07] MEDS: Insulin Aspart 300 UNITS/3 ML PEN SC ×3 (09:01→17:39)
[2023-02-07] MEDS: Magnesium Oxide 400 MG TAB PO ×2 (09:01→19:20)
[2023-02-07] MEDS: Clopidogrel 75 MG TAB PO (09:01)
[2023-02-07] MEDS: Linezolid 600 MG TAB PO (09:01)
[2023-02-07] MEDS: Multivitamin TAB 1 TAB PO (09:01)
--- NOTE | 2023-02-07 10:28 | CMPROGNOTE_ITS ---
Date of service: 02/07/23 Time of Service: 10:28 Care Management Progress Note Progress Note Text Progress Note Text: S/O: Alvarez was sitting up in bed, he had just finished his lunch, which he reported was good. CM reviewed the plan for Alvarez to be transferred to [facility], possibly this weekend. He is agreeable to this plan. CM will continue to follow. A: Alvarez is a 77 year old male admitted to [facility] on 01/28/23 for left leg cellulitis. P: [facility] has accepted Alvarez in transfer on Friday under Dr. Miramontes. Participate, Alvarez will return to [facility] once medically ready. CM updated [facility]. CM will continue to follow.
--- NOTE | 2023-02-07 10:28 | PDOC.CMPRO ---
Date of service: 02/07/23 Time of Service: 10:28 Care Management Progress Note Progress Note Text Progress Note Text: S/O: Alvarez was sitting up in bed, he had just finished his lunch, which he reported was good. CM reviewed the plan for Alvarez to be transferred to [facility], possibly this weekend. He is agreeable to this plan. CM will continue to follow. A: Alvarez is a 77 year old male admitted to [facility] on 01/28/23 for left leg cellulitis. P: [facility] has accepted Alvarez in transfer on Friday under Dr. Miramontes. Participate, Alvarez will return to [facility] once medically ready. CM updated [facility]. CM will continue to follow.
--- NOTE | 2023-02-07 11:08 | PGE_ITS ---
Date of Service Date of service: 02/07/23 Time of Service: 11:08 Assessment and Plan Assessment and plan (1) Diabetic foot ulcer: Status: Acute Assessment and plan: post op day 3 surgical debridement by podiatry, no evidence of osteomyelitis Cultures from 02/04/2023 demonstrate group C strep and pseudomonas, will change antibiotic to cefepime. will follow inflammatory markers which are improving. wound vac intact (2) PAD (peripheral artery disease): Status: Acute Assessment and plan: [facility] requesting transfer. Dr. Miramontes from [facility] who is a vascular surgeon has accepted the patient however would like to transfer the patient on Friday and will then perform an angio on Friday. They will coordinate care. CT ABD AORTA CTA W RUNOFF IMPRESSION: 1. 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 2. 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 3. Extensive atherosclerosis. No evidence of dissection or aneurysm. 4. No evidence of abscess. (3) Cellulitis of left lower limb: Status: Acute Assessment and plan: resolving on current antibiotic course. (4) Stroke: Status: Chronic Assessment and plan: H/o cerebrovascular disease with admission 2 months ago concerning for TIA. New cerebrovascular disease was discovered on MRI, but findings were not c/w his symptoms and Dr. Fernandez treated with 30 days of DAPT followed by clopidogrel. Plan remains the same Will continue the clopidogrel and his atorvastatin per Dr. Fernandez's recommendations. (5) Type 2 diabetes mellitus: Status: Chronic Assessment and plan: A1c 7.2 in October without medications, on metformin, blood glucose monitorin with SS insulin coverage might have a history of hypoglycemia re: Glucagon on his medication list. . continue current regimen and monitoring (6) CAD (coronary artery disease): Assessment and plan: We will continue statin/clopidogrel. no ACS symptoms reported (7) Dementia: Status: Chronic Assessment and plan: Monitor and try to manage behaviorally.Patient remains cooperative despite base line confusion. no behavioral issues (8) Psoriasis: Assessment and plan: Previously seen areas on buttocks and back where there is pressure with positive blanching. We will continue repositioning as per nursing protocol Diffuse rash, most likely from psoriasis. will change hydrocortisone cream to triamcinolone and add atarax oral (9) DVT prophylaxis: Status: Acute Assessment and plan: We will continue Lovenox (10) Discharge planning issues: Status: Acute Assessment and plan: anticipate transfer to vascular surgery at [facility] on Friday, from there anticipate return to [facility] once medically stable discussed with DR Da Silva Subjective Subjective Patient reports: no new complaints, tolerating liquids well, tolerating a regular diet and afebrile; denies shortness of breath Exam Const General: cooperative, comfortable and well developed Nutritional Appearance: well nourished and overweight Orientation: alert, awake and confused [facility] Head: normal to inspection, normocephalic and atraumatic General nose exam: external nose normal Face and sinus: normal facial exam and face symmetric Mouth: mucous membranes dry (appears dry) Eyes General: appearance normal, both eyes and all related structures (EOM intact, PERRLA) Neck Neck: normal visual inspection and full ROM Resp Effort & Inspection: normal respiratory effort, able to speak in complete sentences and no respiratory distress Cardio Rate: regular rate Rhythm: regular rhythm GI Palpation: soft Skin Rashes: no rashes and other (dressing to LLE intact, no drainage, ) Other: old healed surgical incision on left knee, denies pain to movement of left knee. Neuro General: patient alert and patient awake Cognition: abnormal cognition Gait: other (did not assess gait) Objective Last Vital Signs Temp 35.7 C L 02/07/23 08:49 Pulse 71 02/07/23 08:49 Resp 18 02/07/23 08:49 BP 124/65 02/07/23 08:49 Pulse Ox 99 02/07/23 08:49 Time Spent with Patient Time Spent with Patient: 35-49 minutes Time was spent: preparing to see the patient(eg.review tests), obtaining and/or reviewing separately otained hiistory, ordering medications,tests, procedures, referring, communicating with other health memory care program resident and indepentently interpreting results
--- NOTE | 2023-02-07 11:54 | PT.INTREAT ---
Date of service: 02/07/23 Time of Service: 11:00 PT Notes Visit Reasons: Left leg cellulitis Inpatient Physical Therapy Treatment Note [facility] Date: 02/07/23 PRECAUTIONS: Fall, standard, activity as tolerated. CONTACT PRECAUTIONS. SUBJECTIVE: Patient reports pain in right leg. Reported to TYREL Yates, who states she will relay to the RN. OBJECTIVE: Patient lying on right side with left leg propped on ankle bolster which is across right calf. Area of redness noted on right knee, likely due to pressure from left leg which is chronically rotated inward. Wound vac in place left heel.? PAIN: Yes, c/o pain in right leg. C/o pain in left leg whenever it is touched or he is asked to move it. VITALS: monitored by nursing staff. Therapeutic Activities ([id number]): Direct one-on-one instruction in dynamic activities to improve functional performance. ? BED MOBILITY/TRANSFERS? Rolling L/R: min assist of one with verbal and tactile cues Supine-sit: Mod assist of one to advance legs off bed, mod assist of one with one hand under lower (right) shoulder with elevated HOB to achieve upright sitting position. ? Sit-supine: max assist of 2, with one facilitating patient's shoulders to swing into bed and the other raising legs into bed. ?Sit-stand: unable: despite max assist of two at gait belt with max verbal and tactile cueing, patient is unable to initiate weight shift forward, pressing up from bed with arms, or pressing to stand with legs. Patient verbally agrees to stand, expresses that he would really like to stand, and then is unable to initiate any voluntary muscle movements in that direction. ? Stand-sit: not assessed ? Bed-Chair: unable ? Chair-bed: unable Provided skilled cues and instruction on performance and technique throughout. ? Therapeutic Exercises ([id number]): Direct one-on-one instruction in therapeutic exercises to develop strength, endurance, range of motion and flexibility. ? Exercises ? Patient able to perform 3x LAQ with right leg with min tactile and verbal cueing. 2x left hip abduction 4x left ankle plantarflexion Provided skilled instruction in proper exercise performance Provided skilled manual cues to facilitate proper muscle recruitment and/or form. ASSESSMENT:? Patient tolerates therapy well, no c/o increased pain after therapy, returns to sidelying on right side in bed with call mcqueen in easy reach and 3 pillows between legs - one protecting the right thigh and knee, one protecting the right calf and foot, and the third folded in half and placed under the distal third of patient's left calf to ensure that patient's left heel is free floating. PLAN: Continue global strengthening per plan of care until patient is medically cleared for discharge. TREATMENT CODE/TIME: 38 minutes beginning at 11:00
[2023-02-07] MEDS: Enoxaparin 40 MG/0.4 ML SYR SC (12:28)
[2023-02-07] MEDS: hydrOXYzine HCL 25 MG TAB PO ×2 (13:14→20:51)
[2023-02-07] MEDS: CEFEPIME 2 GM in Normal Saline 100 ML IVPB ×2 (14:03→22:08)
[2023-02-07] MEDS: Normal Saline 500 ML 30 ML IV (14:04)
--- NOTE | 2023-02-07 14:24 | W.PM.PROGNOT ---
Date of Service Date of service: 02/07/23 Time of Service: 14:24 Assessment and Plan Assessment and plan (1) Wet gangrene: Status: Acute (2) Diabetic wet gangrene of the foot: Status: Acute (3) Unstageable pressure ulcer of left heel: Status: Acute (4) Dementia: Status: Chronic (5) Stroke: Status: Chronic (6) Type 2 diabetes mellitus: Status: Chronic (7) Diabetic foot ulcer: Status: Acute Assessment and plan: Patient was seen and evaluated bedside today. He is status post OR I&D date of surgery 02/04/2023. Chart was reviewed. Cultures from 02/04/2023 demonstrate group C strep and pseudomonas. Switched to cefepime. . CT scan demonstrates diminished to nearly absent flow to the left lower extremity below the level of the knee. Patient pending transfer [place] [facility] [place] with planned angio on Friday. I have requested revascularization if indicated and further information on circulation versus level of amputation/healing potential from a vascular standpoint. Their recommendations and assistance is greatly appreciated. Wound VAC noted to be functioning well at this time. Will continue. Patient is to remain non-weightbearing to the left lower extremity. He may toe-touch for transfers. Patient is OK to be transferred for Vascular from a Podiatric standpoint. Will continue the wound VAC upon transfer/ discharge. I discussed the case with the medicine team whose recommendations are appreciated. We will continue to follow. Thank you for allowing me to participate in this patient's care Subjective Subjective Interval history since last seen: Patient was seen bedside today resting comfortably. Appears drowsy. Offers no pedal complaints. Exam Extrem Other: Bilateral lower extremity physical exam: Derm: Skin is warm dry and supple bilaterally. Wound VAC was noted to be intact and without any leaks (there is a 5.5 x 3.8 x 0.5 cm full-thickness ulceration noted to the plantar medial and posterior aspect of the left heel, there is exposed fat pad noted the base is slightly granular however mostly fat pad with some necrosis/black discoloration consistent with electrocautery use) no periwound erythema there is edema noted to the left lower extremity, no proximal streaking no fluctuance no malodor today no palpable abscess no crepitus no probe to bone. Edema overall resolving to the left foot. Some tenderness to palpation noted to the left heel around the wound. Vascular: DP PT pulses are nonpalpable bilateral lower extremity however dopplerable. MSK muscle strength testing deferred today. There is pain on palpation noted to the left heel. Neuro: Light touch sensation noted to be absent bilaterally Objective Last Vital Signs Temp 96.3 F L 02/07/23 08:49 Pulse 71 02/07/23 08:49 Resp 18 02/07/23 08:49 BP 124/65 02/07/23 08:49 Pulse Ox 99 02/07/23 08:49 Time Spent with Patient Time Spent with Patient: 35-49 minutes Time was spent: preparing to see the patient(eg.review tests), obtaining and/or reviewing separately otained hiistory, ordering medications,tests, procedures, referring, communicating with other health healthcare business analyst, indepentently interpreting results, counseling the patient and care coordination
[2023-02-07 15:43] VITALS: BP 135/59; PULSE 70; RESP 18; TEMP 35.4; O2SAT 98
[2023-02-07 18:45] LABS: C-Reactive Protein 2.67 mg/dL (0.0-0.3)
[2023-02-07] MEDS: Atorvastatin 40 MG TAB PO (19:20)
[2023-02-08 00:16] VITALS: BP 154/85; PULSE 73; RESP 18; TEMP 35.6; O2SAT 95
[2023-02-08 03:41] VITALS: BP 155/80; PULSE 83; RESP 18; TEMP 36.2; O2SAT 97
[2023-02-08] MEDS: CEFEPIME 2 GM in Normal Saline 100 ML IVPB ×3 (05:34→21:29)
[2023-02-08 07:13] LABS: Abs Immature Grans 0.02 10^3/uL (0.0-0.06); Absolute Basophil Count 0.02 10^3/uL (0.0-0.2); Absolute Eosinophil Count 0.13 10^3/uL (0.0-0.7); Absolute Lymphocyte Count 0.82 10^3/uL (1.2-3.4); Absolute Monocyte Count 0.05 10^3/uL (0.1-0.8); Absolute Neutrophil Count 2.48 10^3/uL (1.2-6.7); Basophils % 0.6; Eosinophils % 3.7; HCT 30.9 % (40.0-50.0); HGB 10.3 g/dL (13.5-17.5); Immature Grans % 0.6; Lymphocytes % 23.3; MCH 32.9 pg (27.0-33.0); MCHC 33.3 % (32.0-36.0); MCV 99 fL (80-95); MPV 9.9 fL (8.0-11.0); Monocytes % 1.4; Neutrophils % 70.4; Platelet Count 281 10^3/uL (130-400); RBC 3.13 10^6/uL (4.36-5.78); RDW 13.5 % (11.8-14.1); RDW-SD 48.5 fL; WBC 3.52 10^3/uL (4.4-10.8)
[2023-02-08 08:26] VITALS: BP 161/81; PULSE 66; RESP 17; TEMP 35.9; O2SAT 95
[2023-02-08] MEDS: Magnesium Oxide 400 MG TAB PO ×2 (09:34→19:46)
[2023-02-08] MEDS: Clopidogrel 75 MG TAB PO (09:34)
[2023-02-08] MEDS: Normal Saline Flush 10 ML SYR IVP ×3 (09:35→21:28)
[2023-02-08] MEDS: Insulin Aspart 300 UNITS/3 ML PEN SC ×2 (09:35→12:34)
[2023-02-08] MEDS: Multivitamin TAB 1 TAB PO (09:35)
[2023-02-08] MEDS: metFORMIN 500 MG TAB 1000 MG PO (09:35)
[2023-02-08 11:30] LABS: ESR (LRH) 76 mm/hr
--- NOTE | 2023-02-08 11:49 | PT.INTREAT ---
PT Notes Visit Reasons: Left leg cellulitis Date: 02/08/23 PRECAUTIONS: Fall, standard, activity as tolerated. CONTACT PRECAUTIONS. SUBJECTIVE: Pt sleeping soundly, re-approached multiple time but was sleeping at all times, pt re-approached closer to lunch and was able to get pt to wake up, pt agreed to participating with Bed level exercises. OBJECTIVE: pt in supine left LE slightly flexed crossing midline, Wound vac in place left heel.? PAIN: left leg, TTP and movement VITALS: monitored by nursing staff. Therapeutic Activities (26136): Direct one-on-one instruction in dynamic activities to improve functional performance. ?? pt repositioning with heels up bolster and pillows to achieve knee extension for left knee as well as align left lower extremity to externally rotate and abduct to prevent crossing midline. ? BED MOBILITY/TRANSFERS? Rolling L/R: NA Supine-sit: NA Sit-supine: NA? Sit-stand: NA ? Stand-sit: NA ? Bed-Chair: NA ? Chair-bed: NA Provided skilled cues and instruction on performance and technique throughout. ? Therapeutic Exercises 81062: Direct one-on-one instruction in therapeutic exercises to develop strength, endurance, range of motion and flexibility. Exercises AROM for the RLE [id number] all planes PROM for the LLE [id number] all planes Provided skilled instruction in proper exercise performance Provided skilled manual cues to facilitate proper muscle recruitment and/or form. ASSESSMENT:? Pt refused further engagement after pt got done with therapeutic procedures, pt reports that the new position is comfortable and requested to be cover by light and heavy blanket after repositioning due to pt report of feeling chilly. PLAN: Continue global strengthening per plan of care until patient is medically cleared for discharge. TREATMENT CODE/TIME: [id number] 23 minutes 11:25-11:48 am.
[2023-02-08] MEDS: Enoxaparin 40 MG/0.4 ML SYR SC (12:34)
--- NOTE | 2023-02-08 14:30 | PGE_ITS ---
Date of Service Date of service: 02/08/23 Time of Service: 14:31 Assessment and Plan Assessment and plan (1) Diabetic foot ulcer: Status: Acute Assessment and plan: s/p surgical debridement by podiatry 02/04, no evidence of osteomyelitis surgical cultures from 02/04/2023 demonstrate group C strep and pseudomonas, sensitive to cefepime. will continue to follow inflammatory markers, which are improving. wound vac intact (2) PAD (peripheral artery disease): Status: Acute Assessment and plan: Dr Kowalski recommend transfer to [facility] vascular service, Dr. Miramontes from [facility] vascular surgeon has accepted the patient in transfer for FridayFeb 10 and will then perform an angio on Friday. They will coordinate care. CT ABD AORTA CTA W RUNOFF IMPRESSION: 1. 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 2. 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 3. Extensive atherosclerosis. No evidence of dissection or aneurysm. 4. No evidence of abscess. (3) Cellulitis of left lower limb: Status: Acute Assessment and plan: resolving on current antibiotic course. (4) Stroke: Status: Chronic Assessment and plan: H/o cerebrovascular disease with admission 2 months ago concerning for TIA. New cerebrovascular disease was discovered on MRI, but findings were not c/w his symptoms and Dr. Fernandez treated with 30 days of DAPT followed by clopidogrel. Plan remains the same Will continue the clopidogrel and his atorvastatin per Dr. Fernandez's recommendations. (5) Type 2 diabetes mellitus: Status: Chronic Assessment and plan: A1c 7.2 in October without medications, on metformin, blood glucose monitorin with SS insulin coverage might have a history of hypoglycemia re: Glucagon on his medication list. . continue current regimen and monitoring (6) CAD (coronary artery disease): Assessment and plan: We will continue statin/clopidogrel. no ACS symptoms reported (7) Dementia: Status: Chronic Assessment and plan: Monitor and try to manage behaviorally.Patient remains cooperative despite baseline confusion. no behavioral issues (8) Psoriasis: Assessment and plan: Previously seen areas on buttocks and back where there is pressure with positive blanching. We will continue repositioning as per nursing protocol Diffuse rash, most likely from psoriasis. will change hydrocortisone cream to triamcinolone and add atarax oral (9) DVT prophylaxis: Status: Acute Assessment and plan: We will continue Lovenox (10) Discharge planning issues: Status: Acute Assessment and plan: anticipate transfer to vascular surgery at [facility] on Friday, from there anticipate return to [facility] and rehab once medically stable discussed with DR Da Silva Subjective Subjective Patient reports: no new complaints, tolerating liquids well, tolerating a regular diet and afebrile Exam Const General: cooperative and comfortable Nutritional Appearance: overweight Orientation: alert, awake and confused [facility] Head: normal to inspection, normocephalic and atraumatic Face and sinus: normal facial exam and face symmetric Eyes General: appearance normal, both eyes and all related structures (EOM intact, PERRLA) Neck Neck: normal visual inspection and full ROM Resp Effort & Inspection: normal respiratory effort, able to speak in complete sentences and no respiratory distress Cardio Rate: regular rate Rhythm: regular rhythm GI Palpation: soft Skin Rashes: no rashes and other (dressing to LLE intact, no drainage, ) Other: old healed surgical incision on left knee, denies pain to movement of left knee. Neuro General: patient alert and patient awake Cognition: abnormal cognition Objective Last Vital Signs Temp 35.9 C L 02/08/23 08:26 Pulse 66 02/08/23 08:26 Resp 17 02/08/23 08:26 BP 161/81 H 02/08/23 08:26 Pulse Ox 95 02/08/23 08:26 Laboratory Results - last 24 hr 02/07/23 02/08/23 18:12 06:25 WBC 3.52 L RBC 3.13 L Hgb 10.3 L Hct 30.9 L MCV 99 H MCH 32.9 MCHC 33.3 RDW 13.5 Plt Count 281 MPV 9.9 Immature Gran % 0.6 Neutrophils % 70.4 Lymphocytes % 23.3 Monocytes % 1.4 Eosinophils % 3.7 Basophils % 0.6 Nucleated RBC % 0.0 Absolute Neutrophils 2.48 Absolute Lymphocytes 0.82 L Absolute Monocytes 0.05 L Absolute Eosinophils 0.13 Absolute Basophils 0.02 ESR 76 C-Reactive Protein 2.67 H Time Spent with Patient Time Spent with Patient: 35-49 minutes Time was spent: preparing to see the patient(eg.review tests), obtaining and/or reviewing separately otained hiistory, ordering medications,tests, procedures and indepentently interpreting results
[2023-02-08 17:15] VITALS: BP 120/57; PULSE 67; RESP 18; TEMP 36.1; O2SAT 98
[2023-02-08] MEDS: hydrOXYzine HCL 25 MG TAB PO (18:16)
[2023-02-08] MEDS: Atorvastatin 40 MG TAB PO (19:45)
[2023-02-08 21:52] VITALS: BP 145/75; PULSE 94; RESP 18; TEMP 37.1; O2SAT 96
[2023-02-09] MEDS: CEFEPIME 2 GM in Normal Saline 100 ML IVPB ×2 (05:29→13:17)
[2023-02-09] MEDS: Normal Saline Flush 10 ML SYR IVP ×3 (05:29→13:17)
[2023-02-09 06:22] LABS: Abs Immature Grans 0.02 10^3/uL (0.0-0.06); Absolute Basophil Count 0.01 10^3/uL (0.0-0.2); Absolute Eosinophil Count 0.14 10^3/uL (0.0-0.7); Absolute Lymphocyte Count 0.77 10^3/uL (1.2-3.4); Absolute Monocyte Count 0.04 10^3/uL (0.1-0.8); Absolute Neutrophil Count 2.45 10^3/uL (1.2-6.7); Basophils % 0.3; Eosinophils % 4.1; HCT 30.8 % (40.0-50.0); HGB 10.3 g/dL (13.5-17.5); Immature Grans % 0.6; Lymphocytes % 22.4; MCH 32.9 pg (27.0-33.0); MCHC 33.4 % (32.0-36.0); MCV 98 fL (80-95); MPV 9.9 fL (8.0-11.0); Monocytes % 1.2; Neutrophils % 71.4; Platelet Count 273 10^3/uL (130-400); RBC 3.13 10^6/uL (4.36-5.78); RDW 13.7 % (11.8-14.1); RDW-SD 49.4 fL; WBC 3.43 10^3/uL (4.4-10.8)
[2023-02-09 06:50] LABS: Anion Gap 5.9 mmol/L (3-11); BUN 19 mg/dL (7-18); C-Reactive Protein 1.49 mg/dL (0.0-0.3); CO2 26.1 mmol/L (21.0-32.0); Calcium 9.1 mg/dL (8.5-10.1); Chloride 105 mmol/L (98-107); Estimated GFR 76.56 (mL/min/1.73m2); Glucose 168 mg/dL (74-106); Potassium 4.2 mmol/L (3.5-5.1); Sodium 137 mmol/L (136-145)
[2023-02-09 07:45] VITALS: BP 146/78; PULSE 78; RESP 18; TEMP 36.7; O2SAT 96
[2023-02-09] MEDS: Insulin Aspart 300 UNITS/3 ML PEN SC ×2 (08:40→12:51)
[2023-02-09] MEDS: Magnesium Oxide 400 MG TAB PO (08:41)
[2023-02-09] MEDS: Multivitamin TAB 1 TAB PO (08:41)
[2023-02-09] MEDS: hydrOXYzine HCL 25 MG TAB PO ×2 (08:41→12:51)
[2023-02-09] MEDS: Clopidogrel 75 MG TAB PO (08:41)
--- NOTE | 2023-02-09 12:50 | W.PM.DS.N ---
Date of service: 02/09/23 Time of Service: 12:50 DS: Diagnosis Discharge Diagnosis (1) Diabetic foot ulcer: Status: Acute (2) PAD (peripheral artery disease): Status: Acute (3) Cellulitis of left lower limb: Status: Acute (4) Stroke: Status: Chronic (5) Type 2 diabetes mellitus: Status: Chronic (6) CAD (coronary artery disease): (7) Dementia: Status: Chronic (8) Psoriasis: Discharge Plan Disposition Patient Disposition: Transfer-Acute Inpatient Care Specific Acute Inpt Facility: [facility] Condition: Stable Discharge Details Reason For Visit: Left leg cellulitis Admit Date/Time: 01/28/23 20:34 Admit Provider: Tab Becker Attending Provider: Tab Becker Primary Care Provider: Sony Simmons Hospital Course Hospital Course: this is a 77 year old male with complex medical history including diabetes mellitus type 2, CVA, dementia, MRSA colonization who was admitted to [facility] for an unstageable pressure ulcer of the left heel with celluliitis. There was no evidence of osteomyelitis. He is status post OR I&D date of surgery 02/04/2023. Surgical cultures obtained demonstrate group C strep and pseudomonas. His antibiotics were switched to cefepime. CT scan demonstrates diminished to nearly absent flow to the left lower extremity below the level of the knee. Our health information technologist, (Dr Ríos) discussed the case with Dr Miramontes [place] [facility] and plan is to transfer [place] [facility] [place] with planned angio on Friday. Dr Ríos requested revascularization if indicated and further information on circulation versus level of amputation/healing potential from a vascular standpoint. Their recommendations and assistance will be greatly appreciated. Wound VAC is intact and functioning well at time of discharge and will continue en route. Patient is to remain non-weightbearing to the left lower extremity. He may toe-touch for transfers. He is being transported by ground EMS [place] [facility] [place]. Transfer is discussed with Dr Da Silva Home Meds and New Rx's Prescriptions: New cefepime 2 gram recon soln 2 g IV Q8H Continued hydrocortisone 1 % cream 1 applic topical BID PRN multivitamin Tablet 1 tab PO DAILY bisacodyl 10 mg suppository 10 mg CA DAILY PRN Patient Comments: not on med list Fleet Enema Extra 19-7 gram/197 mL enema 118 ml CA ONCE PRN Patient Comments: not on med list glucagon 1 mg kit See Rx Instructions IM .COMPLEX Patient Comments: not on med list Rx Instructions: intramuscularly; dextrose [Glucose Gel] 40 % gel 15 g PO Q15M PRN Patient Comments: not on med list Rx Instructions: until symptoms of low blood sugar are controlled magnesium hydroxide 400 mg/5 mL suspension 30 ml PO DAILY PRN Patient Comments: not on med list atorvastatin 40 mg tablet 40 mg PO QHS Patient Comments: not on med list acetaminophen [Acetaminophen Extra Strength] 500 MG tablet 500 mg PO Q6H PRN Patient Comments: not on med list clotrimazole 1 % Cream 1 applic TOPICAL BID magnesium oxide 400 mg (241.3 mg magnesium) Tablet 400 mg PO BID Qty: 0 0RF Patient Comments: not on med list nitroglycerin 0.4 mg Tablet, Sublingual 0.4 mg sublingual PRN PRN clopidogrel 75 mg Tablet 75 mg PO DAILY Qty: 0 0RF Held metformin 1,000 mg Tablet 1,000 mg PO BIDWMEAL Hold Instructions: outpatient team Discharge Instructions Instructions: Peripheral Artery Disease (DC), Diabetic Foot Ulcers (DC) Stand Alone Forms: Nursing Discharge Form Activity:: Activity as Tolerated Equipment/Supplies:: No Equipment Needed Diet:: Carb Counting Discharge Orders Discharge Orders: Discharge Order (Routine); Ordered 02/09/23 Ordered By: Maribell Das DS: Summary Time Spent with Patient providing and/or coordinating discharge services: Greater than 30 minutes Status at Discharge Functional status at discharge: bed bound Overall status at discharge: patient is not back to baseline Mental Status: other Speech and Movement: speech and movement normal Mood: congruent mood and other Affect: normal affect Exam Const General: cooperative and comfortable Nutritional Appearance: overweight Orientation: alert, awake and confused [facility] Head: normal to inspection, normocephalic and atraumatic Face and sinus: normal facial exam and face symmetric Eyes General: appearance normal, both eyes and all related structures (EOM intact, PERRLA) Neck Neck: normal visual inspection and full ROM Resp Effort & Inspection: normal respiratory effort, able to speak in complete sentences and no respiratory distress Cardio Rate: regular rate Rhythm: regular rhythm GI Palpation: soft Skin Lesions: other (wound vac intact to left heel. foot is edematous) Rashes: rashes noted (mild surrounding erythema) Other: old healed surgical incision on left knee, denies pain to movement of left knee. Neuro General: patient alert, patient awake and patient confused (at baseline) Cognition: abnormal cognition Psych Mental Status: other Speech and Movement: speech and movement normal Mood: congruent mood and other Affect: normal affect DS: Data Vitals/I&O Vitals and I&O: Vital Signs Temperature 37.1 C 02/08/23 21:52 Temperature Source Tympanic 02/08/23 21:52 Pulse 94 H 02/08/23 21:52 Pulse Rhythm Regular 02/09/23 10:24 Respiratory Rate 18 02/08/23 21:52 Respiratory Effort Normal 02/09/23 10:24 Respiratory Depth Normal 02/09/23 10:24 Respiratory Pattern Normal 02/09/23 10:24 Blood Pressure 145/75 H 02/08/23 21:52 Blood Pressure Mean 79 02/04/23 12:31 Blood Pressure Position Supine 02/04/23 12:31 Pulse Oximetry 96 02/08/23 21:52 Oxygen Delivery Method Room Air 02/08/23 21:52 Oxygen Flow Rate 0 02/08/23 21:52 Pain Level 5 02/08/23 17:15 Comment cullen procedure well 02/04/23 12:31 Intake & Output 02/08/23 02/09/23 02/09/23 23:59 11:59 23:59 Intake Total 200 / 300 200 / 200 Output Total 400 / 1350 300 / 300 Balance -200 / -1050 -100 / -100 Intake: IV 200 / 300 200 / 200 Output: Urine 400 / 1350 300 / 300 Other: Urine Color Yellow Straw Urine Appearance Sediment Sediment Voiding Methods Indwelling Catheter Data Completed and Pending Labs on day of discharge: Labs from last 24 hours 02/09/23 05:37 WBC 3.43 L RBC 3.13 L Hgb 10.3 L Hct 30.8 L MCV 98 H MCH 32.9 MCHC 33.4 RDW 13.7 Plt Count 273 MPV 9.9 Immature Gran % 0.6 Neutrophils % 71.4 Lymphocytes % 22.4 Monocytes % 1.2 Eosinophils % 4.1 Basophils % 0.3 Nucleated RBC % 0.0 Absolute Neutrophils 2.45 Absolute Lymphocytes 0.77 L Absolute Monocytes 0.04 L Absolute Eosinophils 0.14 Absolute Basophils 0.01 Sodium 137 Potassium 4.2 Chloride 105 Carbon Dioxide 26.1 Anion Gap 5.9 BUN 19 H Creatinine 1.0 Est GFR (CKD-EPI 2020) 76.56 Glucose 168 H Calcium 9.1 C-Reactive Protein 1.49 H Preliminary micro results at discharge 02/04/23 13:03 Surgical Culture - Preliminary Foot - Left Group C Streptococcus Pseudomonas aeruginosa 02/03/23 14:00 Anaerobic Culture - Preliminary Foot - Left 02/04/23 13:03 Anaerobic Culture - Preliminary Foot - Left 02/03/23 14:00 Surgical Culture - Preliminary Foot - Left Group C Streptococcus PFSH All Active Problems (Updated 02/05/23 @ 22:26 by Maribell Das, KAMILAH) PAD (peripheral artery disease) (Acute) Unstageable pressure ulcer of left heel (Acute) Diabetic wet gangrene of the foot (Acute) Wet gangrene (Acute) Discharge planning issues (Acute) DVT prophylaxis (Acute) Diabetic foot ulcer (Acute) Cellulitis of left lower limb (Acute) Weight loss (Acute) UTI (urinary tract infection) (Acute) Stroke (Chronic) Dementia (Chronic) Nonspecific paroxysmal spell (Acute) Brain TIA (Acute) Stenosis of right middle cerebral artery (Acute) MRSA colonization (Acute) Type 2 diabetes mellitus (Chronic) Medical History Middle cerebral artery stenosis Anemia, mild Tachy-sara syndrome Ambulatory dysfunction E coli infection Memory changes Tinea corporis Mobility impaired Rash Sepsis secondary to UTI Dizziness and giddiness BPH (benign prostatic hyperplasia) GERD (gastroesophageal reflux disease) Neuropathy Obesity HLD (hyperlipidemia) CHF (congestive heart failure) Urinary incontinence Psoriasis Diabetes Hyperglycemia Hypertension CAD (coronary artery disease) Hypercholesteremia Surgical History H/O hernia repair S/P appendectomy S/P knee replacement Hx of CABG H/O surgical procedure a. Aortic valve replacement 04/2013 b. left THR 10/04/2013 c. Left TKR 6-7 years ago S/P AVR (aortic valve replacement) 04/2013 Social History Smoking/Tobacco Use Status: Former Tobacco Use Smoking risk assessment performed?: Yes Alcohol Intake: never Drug use: Never Substance use type: does not use Housing: assisted living facility Do you feel safe at home: Yes Do you feel safe in your relationship?: Yes Additional Social history: Current resident of [facility] Time Spent with Patient Time Spent with Patient: 45-69 minutes Time was spent: preparing to see the patient(eg.review tests), obtaining and/or reviewing separately otained hiistory, ordering medications,tests, procedures, referring, communicating with other health child care director and care coordination
[2023-02-09] MEDS: Triamcinolone 0.1% CR 15 GM TUBE TP (12:51)
[2023-02-09] MEDS: Enoxaparin 40 MG/0.4 ML SYR SC (12:51)
--- NOTE | 2023-02-09 13:19 | PT.INNT ---
PT Notes Visit Reasons: Left leg cellulitis Pt getting ready for transfer, leaving for [facility].
--- NOTE | 2023-02-09 14:15 | PDOC.CMDIS ---
Date of service: 02/09/23 Time of Service: 14:15 LACE Index Scoring Tool Questions: Length of Stay (in days): 7 - 13 Was the patient admitted via the E.D.?: Yes Comorbidities: Cerebrovascular Disease, Diabetes w/o Complication and Dementia E.D. Visits: 2 Answers: Total Score: 15 Risk of Readmission: High Risk Care Management Discharge Plan Reason for Hospitalization: Left leg cellulitis Discharge Plan: Alvarez was transferred to [facility], which was coordinated by podiatry. He will transport via [facility], coordinated by RN Cultural Centre Manager. Once he is medically cleared, he will return to [facility], where he resides. He will follow up with his PCP and discharge plan of care. Patient/Family Education Needs: Review discharge instructions and limitations, discussion of self care needs including ask me three. Services Needed at Discharge: Transportation (EMS)
[2023-02-09 15:00] VITALS: BP 146/83; PULSE 75; RESP 18; TEMP 36.2; O2SAT 98
--- NOTE | 2023-02-13 14:34 | INDS_ITS ---
PT Notes Visit Reasons: Left leg cellulitis Physical Therapy Inpatient Discharge Summary Date: 02/13/2023 Dates of Service: 01/29/2023 through 02/08/2023 This document serves as a summary of care. No PT services were provided on this date. Referring Doctor: Tab Becker MD PT Orders: PT CONSULT: Fall safety assessment. Exacerbation Chronic Cond Precautions: Fall.?On?contact Precautions. Activity as tolerated. Per order of Dr. Kowalski, heel may touch floor for balance for transfers only. Patient Profile/Admitting Diagnosis:Mansoor Pino is a 77-year-old male resident of [facility] with past medical history significant for CVA and dementia admitted due to cellulitis of left lower limb, diabetic foot ulcer, new CVA, type 2 diabetes mellitus, CAD, dementia, and psoriasis. Patient was seen for 11 sessions of PT intervention over the course of 11 days. He required transfer to [facility] for further medical intervention, and PT was discontinued due to discharge from hospital. He requires continued PT intervention to maximize mobility, as rehab goals have not been met. PMHX: All Active Problems? Discharge planning issues (Acute) DVT prophylaxis (Acute) Diabetic foot ulcer (Acute) Cellulitis of left lower limb (Acute) Weight loss (Acute) UTI (urinary tract infection) (Acute) Stroke (Chronic) Dementia (Chronic) Nonspecific paroxysmal spell (Acute) Brain TIA (Acute) Stenosis of right middle cerebral artery (Acute) MRSA colonization (Acute) Type 2 diabetes mellitus (Chronic) Medical History? Ambulatory dysfunction Anemia, mild BPH (benign prostatic hyperplasia) CAD (coronary artery disease) CHF (congestive heart failure) Diabetes Dizziness and giddiness E coli infection GERD (gastroesophageal reflux disease) HLD (hyperlipidemia) Hypercholesteremia Hyperglycemia Hypertension Memory changes Middle cerebral artery stenosis Mobility impaired Neuropathy Obesity Psoriasis Rash Sepsis secondary to UTI Tachy-sara syndrome Tinea corporis Urinary incontinence Surgical History? H/O hernia repair H/O surgical procedure a.? Aortic valve replacement 04/2013 b.? left THR 10/04/2013 c.? Left TKR 6-7 years ago Hx of CABG S/P appendectomy S/P AVR (aortic valve replacement) 04/2013S/P knee replacement Social History/Home Situation: SNF resident. Equipment Owned/DME: FWW,? wheelchair Subjective: none Objective: ROM: Right Upper Extremity: ? Grossly 3/5 Left Upper Extremity:? Grossly 3/5 Right Lower Extremity: Grossly 2-/5 Left Lower Extremity: Grossly 2-/5 Strength: Right Upper Extremity: Grossly 3/5 Left Upper Extremity: Grossly 3/5 Right Lower Extremity: Grossly 3/5 Left Lower Extremity: Grossly 3/5 BED MOBILITY/TRANSFERS? Rolling L/R: min assist of one with verbal and tactile cues Supine-sit: Mod assist of one to advance legs off bed, mod assist of one with one hand under lower (right) shoulder with elevated HOB to achieve upright sitting position. ? Sit-supine: max assist of 2, with one facilitating patient's shoulders to swing into bed and the other raising legs into bed. ?Sit-stand: unable: despite max assist of two at gait belt with max verbal and tactile cueing, patient is unable to initiate weight shift forward, pressing up from bed with arms, or pressing to stand with legs.? Bed-Chair: unable ? Chair-bed: unable Gait: Unable and unsafe. ASSESSMENT: Alvarez is a 77-year-old male resident of SNF with past medical history significant for CVA and dementia admitted due to cellulitis of left lower limb, diabetic foot ulcer, new CVA, type 2 diabetes mellitus, CAD, dementia, and psoriasis. Patient was seen for 11 sessions of PT intervention over the course of 11 days. He required transfer to [facility] for further medical intervention, and PT was discontinued due to discharge from hospital. He requires continued PT intervention to maximize mobility, as rehab goals have not been met. Goals: Goals X1 week 1. Supine-Sit supervision DOWNGRADE to minimal assist (NOT MET) 2. Sit-Supine supervision DOWNGRADE to minimal assist (NOT MET) 3. Sit-Stand contact guard assist with FWW DOWNGRADE to minimal assist (NOT MET) 4. Stand-Sit contact guard assist with FWW DOWNGRADE to minimal assist (NOT MET) 5. Bed-Chair contact guard assist with FWW DOWNGRADE to minimal assist (NOT MET) 6. Chair-Bed contact guard assist with FWW DOWNGRADE to minimal assist (NOT MET) 7. Contact guard assist with gait on level surface with use of FWW for at least 50 feet without report of pain nor dyspnea DOWNGRADE to minimal assist (NOT MET) 8. Good static and dynamic standing balance/tolerance DOWNGRADE to FAIR (NOT MET) Plan of Care/Treatment Plan: D/C from PT. DISCHARGE RECOMMENDATIONS: Patient transferred to [facility] for ongoing medical care. Recommend resumption of PT intervention once deemed appropriate by overseeing MD. TREATMENT CODE/TIME: none Thank you for the opportunity to participate in the care of this patient. Radha Rodriguez PT, DPT [facility] [place], [place]
== END 2023-02-09 14:47 | disposition short-term general hospital (02) | DRG 622 ==
LOC: ER 21:22 → MS 21:48
PROVIDERS: Internal Medicine; Nurse Practitioner Acute Care; Nurse Practitioner Family; Podiatrist; Admitting Provider Family Medicine; Emergency Provider Registered Nurse Emergency; PCP Family Medicine; Visit Provider Family Medicine
PROC: 0JBR0ZZ Excision of Left Foot Subcutaneous Tissue and Fascia, Open Approach (ICD-10-PCS; CPT 11043; principal; 2023-02-04 12:00)
DX: E11.621 Type 2 diabetes mellitus with foot ulcer (principal); A48.0 Gas gangrene; L03.116 Cellulitis of left lower limb; E11.52 Type 2 diabetes mellitus with diabetic peripheral angiopathy with gangrene; L97.428 Non-pressure chronic ulcer of left heel and midfoot with other specified severity; Z22.322 Carrier or suspected carrier of Methicillin resistant Staphylococcus aureus; Z86.73 Personal history of transient ischemic attack (TIA), and cerebral infarction without residual deficits; I25.10 Atherosclerotic heart disease of native coronary artery without angina pectoris; L40.4 Guttate psoriasis; I67.9 Cerebrovascular disease, unspecified; F01.50 Vascular dementia, unspecified severity, without behavioral disturbance, psychotic disturbance, mood disturbance, and anxiety; Z95.3 Presence of xenogenic heart valve; R63.4 Abnormal weight loss; I66.01 Occlusion and stenosis of right middle cerebral artery; D64.9 Anemia, unspecified; N40.0 Benign prostatic hyperplasia without lower urinary tract symptoms; I50.9 Heart failure, unspecified; K21.9 Gastro-esophageal reflux disease without esophagitis; I11.0 Hypertensive heart disease with heart failure; E78.00 Pure hypercholesterolemia, unspecified; R41.3 Other amnesia; Z74.09 Other reduced mobility; G62.9 Polyneuropathy, unspecified; I49.5 Sick sinus syndrome; R32 Unspecified urinary incontinence; Z96.642 Presence of left artificial hip joint; Z96.652 Presence of left artificial knee joint; Z95.1 Presence of aortocoronary bypass graft; Z87.891 Personal history of nicotine dependence
CPT/HCPCS: 11043; 11046; 00123; 36410; 36415; 64445; 64447; 73721; 75635; 76942; 80048; 80053; 84145; 85027; 85652; 87040; 87077; 87635; 87641; 88305; 93306; 93308; 96365; 97110; 97163; 97166; 97530; 97535; 99233; 99285; J1650; 73630; 73650; 81003; 81015; 83605; 83735; 85025; 85610; 86140; 87070; 87075; 87086; 87186; 87205; 88304; 88312; 93971; 99232; 99239; J0171; J0690; J2704; J3490; Q9967

== ENCOUNTER 2023-02-04 15:01 | Inpatient (IN) | payer MEDICARE, OTHER, SELFPAY | END 2023-02-04 15:02 | disposition home or self-care (01) | LOC: MS 05-06 15:02 | PROVIDERS: Admitting Provider Podiatrist; PCP Family Medicine; Visit Provider Podiatrist | CPT/HCPCS: 87070; 87205; J2704 ==

== ENCOUNTER 2023-02-27 20:24 | Outpatient (REF) | payer MEDICARE, OTHER, SELFPAY ==
[2023-02-27 20:56] LABS: ESR 38 mm/hr (0-20)
[2023-02-27 20:58] LABS: Abs Immature Grans 0.01 10^3/uL (0.0-0.06); Absolute Basophil Count 0.01 10^3/uL (0.0-0.2); Absolute Eosinophil Count 0.04 10^3/uL (0.0-0.7); Absolute Lymphocyte Count 0.67 10^3/uL (1.2-3.4); Absolute Monocyte Count 0.06 10^3/uL (0.1-0.8); Absolute Neutrophil Count 3.41 10^3/uL (1.2-6.7); Basophils % 0.2; HGB 10.9 g/dL (13.5-17.5); Immature Grans % 0.2; MCH 33.2 pg (27.0-33.0); MCHC 32.1 % (32.0-36.0); MCV 104 fL (80-95); Monocytes % 1.4; Neutrophils % 81.2; Platelet Count 163 10^3/uL (130-400); RBC 3.28 10^6/uL (4.36-5.78); RDW 15.5 % (11.8-14.1); RDW-SD 59.3 fL
[2023-02-27 21:13] LABS: ALT 27 U/L (16-63); AST 13 U/L (15-37); Albumin 3.2 g/dL (3.4-5.0); Alkaline Phosphatase 81 U/L (46-116); Anion Gap 8.8 mmol/L (3-11); BUN 36 mg/dL (7-18); Bilirubin, Total 0.3 mg/dL (0.2-1.0); C-Reactive Protein 0.73 mg/dL (0.0-0.3); CO2 27.2 mmol/L (21.0-32.0); CREATININE 1.2 mg/dL (0.70-1.30); Calcium 9.5 mg/dL (8.5-10.1); Chloride 106 mmol/L (98-107); Estimated GFR 61.52 (mL/min/1.73m2); Glucose 213 mg/dL (74-106); Potassium 3.9 mmol/L (3.5-5.1); Sodium 142 mmol/L (136-145); Total Protein 7.8 g/dL (6.4-8.2)
== END 2023-02-27 20:25 | disposition home or self-care (01) ==
LOC: LBN 20:24
PROVIDERS: PCP Family Medicine; Visit Provider Nurse Practitioner Adult Health
DX: I50.9 Heart failure, unspecified (principal); E11.69 Type 2 diabetes mellitus with other specified complication; L89.620 Pressure ulcer of left heel, unstageable
CPT/HCPCS: 80053; 85652; 85025; 86140

== ENCOUNTER → 2023-03-03 09:26 | Outpatient (BNVA) | payer MEDICARE, OTHER, SELFPAY | PROVIDERS: PCP Family Medicine; Referring Provider Family Medicine; Visit Provider Podiatrist | DX: E11.621 Type 2 diabetes mellitus with foot ulcer (principal); L89.620 Pressure ulcer of left heel, unstageable; I70.202 Unspecified atherosclerosis of native arteries of extremities, left leg; E11.52 Type 2 diabetes mellitus with diabetic peripheral angiopathy with gangrene; M86.9 Osteomyelitis, unspecified | CPT/HCPCS: 99215 ==

== ENCOUNTER 2023-03-06 22:41 | Outpatient (REF) | payer MEDICARE, OTHER, SELFPAY ==
[2023-03-06 22:52] LABS: Abs Immature Grans 0.08 10^3/uL (0.0-0.06); Absolute Basophil Count 0.01 10^3/uL (0.0-0.2); Absolute Eosinophil Count 0.02 10^3/uL (0.0-0.7); Absolute Monocyte Count 0.19 10^3/uL (0.1-0.8); Absolute Neutrophil Count 6.91 10^3/uL (1.2-6.7); Basophils % 0.1; Eosinophils % 0.3; HGB 12.8 g/dL (13.5-17.5); Immature Grans % 1.1; Lymphocytes % 5.3; MCH 34.1 pg (27.0-33.0); MCHC 33.7 % (32.0-36.0); MCV 101 fL (80-95); MPV 11.2 fL (8.0-11.0); Monocytes % 2.5; Neutrophils % 90.7; Platelet Count 179 10^3/uL (130-400); RBC 3.75 10^6/uL (4.36-5.78); RDW-SD 60.3 fL; WBC 7.61 10^3/uL (4.4-10.8)
[2023-03-06 23:10] LABS: Anion Gap 9.9 mmol/L (3-11); BUN 60 mg/dL (7-18); CO2 26.1 mmol/L (21.0-32.0); CREATININE 3.5 mg/dL (0.70-1.30); Calcium 9.9 mg/dL (8.5-10.1); Chloride 105 mmol/L (98-107); Estimated GFR 17.03 (mL/min/1.73m2); Glucose 253 mg/dL (74-106); Potassium 4.6 mmol/L (3.5-5.1); Sodium 141 mmol/L (136-145)
== END 2023-03-06 22:42 | disposition home or self-care (01) ==
LOC: LBN 22:41
PROVIDERS: PCP Family Medicine
DX: E78.5 Hyperlipidemia, unspecified (principal); E11.69 Type 2 diabetes mellitus with other specified complication
CPT/HCPCS: 80048; 85025

== ENCOUNTER 2023-03-07 12:01 | Inpatient (IN) | payer MEDICARE, OTHER, SELFPAY ==
[2023-03-07] VITALS (77 sets, daily range): BP systolic 88–153; BP diastolic 36–69; PULSE 81–125; RESP 14–30; TEMP 36.5–37.1; O2SAT 86–98
--- NOTE | 2023-03-07 12:00 | RT.EKG_ITS ---
APPROVED REPORT Exam: Resting ECG Reason for Exam: Hypotension Patient Location: E HR:118 bpm ECG Measurements Heart Rate 118 AXIS AL 140 P 54 QRSd 77 QRS 51 QT 314 T 43 QTc 441 Conclusion Sinus tachycardia...rate> 99 Probable left atrial enlargement...P >50mS, <-0.10mV V1 sinus tachycardia, normal axis, normal intervals, non ischemic
--- NOTE | 2023-03-07 12:03 | W.ED.GENAD ---
Discharge Plan Disposition Patient Disposition: Admit to [facility] Discharge Details Clinical Impression: Hydronephrosis, Acute renal failure, Sepsis, Bladder outlet obstruction Primary Care Provider: Sony Simmons ED Provider: Rui Johnson Home Meds and New Rx's Prescriptions: No Action multivitamin Tablet 1 tab PO DAILY Fleet Enema Extra 19-7 gram/197 mL enema 118 ml IL ONCE PRN Patient Comments: not on med list glucagon 1 mg kit See Rx Instructions IM .COMPLEX Patient Comments: not on med list Rx Instructions: intramuscularly; dextrose [Glucose Gel] 40 % gel 15 g PO Q15M PRN Patient Comments: not on med list Rx Instructions: until symptoms of low blood sugar are controlled magnesium hydroxide 400 mg/5 mL suspension 30 ml PO DAILY PRN Patient Comments: not on med list atorvastatin 40 mg tablet 40 mg PO QHS Patient Comments: not on med list bisacodyl 10 mg suppository 10 mg IL DAILY PRN aspirin 81 mg tablet,delayed release (DR/EC) 81 mg PO DAILY All Day Allergy (cetirizine) 10 mg capsule 10 mg PO DAILY PRN levofloxacin 750 mg tablet 750 mg PO DAILY Rx Instructions: x 34 days; ends 03/26/23 metformin 1,000 mg tablet 500 mg PO BIDWMEAL Hold Instructions: outpatient team oxycodone 5 mg capsule 5 mg PO Q12H PRN (Reason: leg pain, before dressing changes) oxycodone [OxyContin] 10 mg tablet,oral only,ext.rel.12 hr 10 mg PO BID PRN (Reason: ischemic leg pain, heel wound) Rx Instructions: x 14 days prednisone 10 mg tablet 10 mg PO DAILY Rx Instructions: x 14 days (02/21/23) EO pantoprazole [Protonix] [address] for susp in packet 40 mg PO DAILY Rx Instructions: x 30 days (start 02/24/23) EO cefepime 2 gram recon soln 2 g IV Q8H nitroglycerin 0.4 mg Tablet, Sublingual 0.4 mg sublingual PRN PRN Medical Decision Making This dictation utilizes [id number] dictation software and may contain unedited grammatical errors. 77 y/o M presents to ED today by EMS from [facility] with a chief complaint of N/V/D, abdominal pain, distention, high heart rate and abnormal labs with elevated SCr in 3's yesterday. Onset and characteristics include unknown onset- patient has had frank catheter. Patient has relevant history of anemia, memory loss, history of sepsis secondary to UTI, GERD, BPH, CHF, diabetes, hypertension, coronary artery disease, history of hernia repair. Family and social history: noncontributory. Pertinent exam findings / vital signs include distended and tender abdomen, mildly diaphoretic and lethargic, benign pulmonary exam with lungs CTA, unreliable neurological status chronicity with patient having memory issues/dementia. Differential / pathologies of concern include sepsis, acute renal failure, SBO, diverticulitis, mesenteric ischemia, viral syndrome. Diagnostic studies of: -Sepsis work-up - CBC, CMP, Lipase, Lactate, UA, Procalcitonin, EKG, CXR Portable, CT ABD/Pelvis wo Contrast, VBG, EKG. -Lactate 6.0, likely severe sepsis, giving 30cc/kg fluid bolus 2190mL NS- repeat lactate q2hr 5.6 -SCr 5.2, acute renal failure, will likely improve with hydration -CT ABD/Pelvis wo Contrast shows significant bladder distention w free air and hydronephrosis with frank inflated in prostate, likely bladder outlet obstructions- question streaking around colon but no clear diverticuli, no abscess - replacing frank and flushing. -CXR chest clear of any PNA -EKG sinus tachycardia at 99 bpm with no ischemic changes, normal axis, good R wave progression, normal QT QTc Interventions of: -IV fluid bolus for severe sepsis 30cc/kg 2190 mL. -IV Ceftriaxone, Metronidazole, Vancomycin -IV Tylenol, IV Famotidine, IV Zofran ED Course: 77-year-old male presents by EMS with tachycardia to 125 with a blood pressure of 88/66 with a MAP of 71 on arrival. I did suspect severe sepsis and started fluid resuscitation with good response q. 20 minutes his blood pressure was 125/82. I suspected abdominal source with the patient having abdominal tenderness to palpation as well as nausea vomiting diarrhea with dried emesis around his mouth, concern for UTI as well, less likely for his chronic left ankle wound he is seeing wound care for. Did discuss the case with EM attending physician Dr. Danny Silva. Appears patient is responding to fluid bolus and will not need central line at this time. Pressors considered by good response to IVF. Patient remained stable after initiation of IVF, Urology was consulted and they were able to place a frank through his inflamed prostate gland. Consulted with Hospitalist Dr. Truong for admission for Sepsis secondary to likely UTI with gas in the bladder, who accepted for admission at 1445. Family presented to ED and was updated. Disposition of Sepsis, Hydronephrosis, Bladder Outlet Obstruction, Acute Renal Failure. Patients' family verbalized understanding of the plan and engaged in shared decision making. Medical Records Medical records reviewed: Yes I reviewed the patient's medical records. Imaging Data Radiologic Study: Imaging: X-Ray Radiologist's impression: XR CHEST 1V IN DI DEPT EXAM: XR CHEST 1V IN DI DEPT CLINICAL HISTORY: sepsis; cough. TECHNIQUE: 2D digital imaging was performed. COMPARISON: CR,XR XR CHEST 2V PA LATERAL from 11/17/2022 FINDINGS: Single AP portable view. Carotid the wires noted. Prosthetic aortic valve. Heart size is upper normal. The mediastinum is not widened. Lungs are clear. No infiltrates nor obvious pleural effusions. No evidence of pulmonary edema. IMPRESSION: No acute pulmonary findings on this single AP portable view of the chest. Radiologic Study #2: Imaging: CT Scan Radiologist's impression: Exam(s) CT ABDOMEN PELVIS WO EXAM: CT ABDOMEN PELVIS WO CLINICAL HISTORY: NVD, abdominal pain, severe sepsis. TECHNIQUE: Imaging Protocol: Axial computed tomography images with coronal and sagittal reformatted images were created and reviewed CONTRAST MATERIAL: Intravenous: none Oral: None COMPARISON: CT CT ABD AORTA CTA W RUNOFF from 02/04/2023 FINDINGS: VISUALIZED LUNG BASES: No nodules nor pleural effusions evident. Sternotomy wires. Prosthetic aortic valve. Normal heart size. No pericardial effusion. Coronary artery calcification noted. ABDOMEN: There is no ascites. LIVER: There are no obvious focal hepatic lesions evident of this noninfused study. GALLBLADDER/BILIARY: No obvious gallbladder pathology. CBD is not dilated. PANCREAS: No evidence of pancreatic mass nor dilatation of the pancreatic duct. SPLEEN: Spleen size normal. Calcified splenic granulomas noted. No lesions nor abscess is evident in the spleen. ADRENALS: There are no significant adrenal masses. KIDNEYS:No cysts nor solid renal masses. No radiopaque calculi but there appears to be mild bilateral hydronephrosis and hydroureter . Lower most pelvic ureters are not dilated but the upper 2/3 of the ureters are slightly prominent size and exhibits some mild surrounding streaking. Bladder is somewhat distended. Measures 14 cm AP by 12 mm wide by 15 cm craniocaudal. Contains some air. No gross thickening of the urinary bladder wall although there is some hyperdense material in the dependent aspect of the urinary bladder noted. On the left side this is probably calculus.. Frank catheter noted but appears to be in the prostatic urethra. This may be why the urinary bladder is distended ABDOMINAL AORTA: Abdominal aorta is not enlarged. LYMPH NODES: There is no retroperitoneal nor paraaortic adenopathy. ABDOMINAL WALL: There is a E right para umbilical anterior abdominal hernia which contains only fat and measures approximately 6 cm wide by 3 cm AP by 5 cm cephalocaudal. GI: There is no evidence of bowel obstruction, free air, nor abscess. PELVIS: LYMPH NODES: There is no intrapelvic nor inguinal adenopathy. GI: No evidence of appendicitis.There is some streaking around the sigmoid colon near the internal inguinal ring. There are no obvious diverticuli. URINARY BLADDER: As above. REPRODUCTIVE: Frank catheter appears to be inflated in the prostate urethra. The prostate gland is enlarged, measuring 6.5 cm wide. OSSEOUS: No significant osseous lesions. Left hip prosthesis. No fractures evident. IMPRESSION: 1. Grossly distended urinary bladder and relatively symmetrical hydroureter and hydronephrosis which appears to be due to less than optimal position of the Frank catheter. The Frank balloon is inflated in the prostate urethra and is most probably causing obstruction with subsequent findings as above. 2. Right anterior abdominal wall para umbilical hernia with measurements as above. The hernia sac contains fat but no bowel loops. There is no bowel obstruction. 3. There is mild streaking adjacent to the sigmoid colon near the left internal inguinal ring. There are no obvious diverticuli. Called to ER physician Lab Data Labs: 03/07/23 12:37 Blood Blood Culture - Pending 03/07/23 12:20 Blood Blood Culture - Pending Laboratory Tests Range/Units 03/07/23 03/07/23 12:20 14:02 WBC (4.4-10.8) 10^3/uL 8.59 RBC (4.36-5.78) 10^6/uL 3.78 L Hgb (13.5-17.5) g/dL 12.6 L Hct (40.0-50.0) % 39.3 L MCV (80-95) fL 104 H MCH (27.0-33.0) pg 33.3 H MCHC (32.0-36.0) % 32.1 RDW (11.8-14.1) % 16.1 H Plt Count (130-400) 10^3/uL 180 MPV (8.0-11.0) fL 10.8 Immature Gran % 0.6 Neutrophils % 92.3 Lymphocytes % 5.4 Monocytes % 1.6 Eosinophils % 0.0 Basophils % 0.1 Nucleated RBC % (0.0-0.3) % 0.0 Absolute Neutrophils (1.2-6.7) 10^3/uL 7.93 H Absolute Lymphocytes (1.2-3.4) 10^3/uL 0.46 L Absolute Monocytes (0.1-0.8) 10^3/uL 0.14 Absolute Eosinophils (0.0-0.7) 10^3/uL 0.00 Absolute Basophils (0.0-0.2) 10^3/uL 0.01 VBG pH (7.31-7.41) 7.33 VBG pCO2 (41-51) mmHg 43 VBG pO2 mmHg 35 VBG HCO3 (23-28) mmol/L 23 VBG Total CO2 (24-29) mmol/L 21 L VBG O2 Saturation % 61 VBG Base Excess (-2-3) mmol/L -3 L VBG Lactate (0.6-1.4) mmol/L 6.0 H* 5.6 H* Sodium (136-145) mmol/L 140 Potassium (3.5-5.1) mmol/L 5.2 H Chloride (98-107) mmol/L 102 Carbon Dioxide (21.0-32.0) mmol/L 23.1 Anion Gap (3-11) mmol/L 14.9 H BUN (7-18) mg/dL 78 H Creatinine (0.70-1.30) mg/dL 5.2 H* D Est GFR (CKD-EPI 2020) (mL/min/1.73m2) 10.59 Glucose (74-106) mg/dL 265 H Calcium (8.5-10.1) mg/dL 9.8 Total Bilirubin (0.2-1.0) mg/dL 0.6 AST (15-37) U/L 16 ALT (16-63) U/L 17 Alkaline Phosphatase (46-116) U/L 76 Total Protein (6.4-8.2) g/dL 8.3 H Albumin (3.4-5.0) g/dL 3.0 L Procalcitonin ng/mL 0.3 COVID-19 Source Nasal/Nares SARS-CoV-2 (PCR) (Negative) Negative HPI General Date/Time Provider Initiated Documentation: 03/07/23 12:02. HPI Narrative: 77 year-old male presents to ED today by EMS from [facility], with a chief complaint of N/V/D, abdominal pain, abnormal labs showing SCr of 3.5 with onset for the past day. Quality described as generalized abdominal pain, patient is unreliable and states no pain, no radiation to high fever, chest pain, patient does have tachycardia on arrival. Severity is described as unable to quantify/10. Palliating factors include nothing specific attempted. Provoking factors include unknoen. Events leading up to the incident/Associated Symptoms: Patient has a L ankle infection that he sees wound care for. Patient not anticoagulated. Related Data Home Medications Medication Instructions Recorded Confirmed atorvastatin 40 mg tablet 40 mg PO QHS 11/07/21 03/07/23 dextrose 40 % oral gel (Glucose 15 g PO Q15M PRN 11/07/21 03/07/23 Gel) glucagon 1 mg injection kit See Rx Instructions IM .COMPLEX 11/07/21 03/07/23 magnesium hydroxide 400 mg/5 mL 30 ml PO DAILY PRN 11/07/21 03/07/23 oral suspension multivitamin 1 tab PO DAILY 11/07/21 03/07/23 sodium phosphates 19 gram-7 118 ml IL ONCE PRN 11/07/21 03/07/23 gram/197 mL enema (Fleet Enema Extra) nitroglycerin 0.4 mg sublingual 0.4 mg sublingual PRN PRN 11/17/22 03/07/23 tablet cefepime 2 gram solution for 2 g IV Q8H 02/09/23 03/03/23 injection aspirin 81 mg tablet,delayed 81 mg PO DAILY 03/03/23 03/07/23 release bisacodyl 10 mg rectal suppository 10 mg IL DAILY PRN 03/03/23 03/07/23 cetirizine 10 mg capsule (All Day 10 mg PO DAILY PRN 03/03/23 03/07/23 Allergy (cetirizine)) levofloxacin 750 mg tablet 750 mg PO DAILY 03/03/23 03/07/23 metformin 1,000 mg tablet 500 mg PO BIDWMEAL 03/03/23 03/07/23 oxycodone 10 mg tablet,crush 10 mg PO BID PRN ischemic leg 03/03/23 03/07/23 resistant,extended release 12 hr pain, heel wound (OxyContin) oxycodone 5 mg capsule 5 mg PO Q12H PRN leg pain, before 03/03/23 03/07/23 dressing changes pantoprazole 40 mg granules 40 mg PO DAILY for allergy 03/03/23 03/07/23 delayed-release for susp in packet (Protonix) prednisone 10 mg tablet 10 mg PO DAILY psoriasis flare 03/03/23 03/07/23 Previous Rx's Medication Instructions Recorded cefepime 2 gram solution for 2 g IV Q8H 02/09/23 injection Allergies Allergy/AdvReac Type Severity Reaction Status Date / Time No Known Allergies Allergy Verified 03/03/23 10:00 General CLEMENTINA: 3 Review of Systems Unobtainable due to mental status PFSH All Active Problems (Updated 03/07/23 @ 15:02 by FREDERIC Ackerman) Bladder outlet obstruction (Acute) Sepsis (Acute) Acute renal failure (Acute) Hydronephrosis (Acute) Acute kidney injury (Acute) Bladder outlet obstruction (Acute) Septic shock (Acute) Tibial artery occlusion, left (Acute) Osteomyelitis of left foot (Acute) S/P angioplasty (Acute) 02/12/23: LLE, posterior tibial artery, balloon angioplasty ([id number]) of TP trunk. PAD (peripheral artery disease) (Acute) Unstageable pressure ulcer of left heel (Acute) Diabetic wet gangrene of the foot (Acute) Wet gangrene (Acute) Discharge planning issues (Acute) DVT prophylaxis (Acute) Diabetic foot ulcer (Acute) Cellulitis of left lower limb (Acute) Weight loss (Acute) UTI (urinary tract infection) (Acute) Stroke (Chronic) Dementia (Chronic) Nonspecific paroxysmal spell (Acute) Brain TIA (Acute) Stenosis of right middle cerebral artery (Acute) MRSA colonization (Acute) Type 2 diabetes mellitus (Chronic) Medical History Middle cerebral artery stenosis Anemia, mild Tachy-sara syndrome Ambulatory dysfunction E coli infection Memory changes Tinea corporis Mobility impaired Rash Sepsis secondary to UTI Dizziness and giddiness BPH (benign prostatic hyperplasia) GERD (gastroesophageal reflux disease) Neuropathy Obesity HLD (hyperlipidemia) CHF (congestive heart failure) Urinary incontinence Psoriasis Diabetes Hyperglycemia Hypertension CAD (coronary artery disease) Hypercholesteremia Surgical History H/O hernia repair S/P appendectomy S/P knee replacement Hx of CABG H/O surgical procedure a. Aortic valve replacement 04/2013 b. left THR 10/04/2013 c. Left TKR 6-7 years ago S/P AVR (aortic valve replacement) 04/2013 Social History Smoking/Tobacco Use Status: Former Tobacco Use Smoking risk assessment performed?: Yes Alcohol Intake: never Drug use: Never Substance use type: does not use Housing: assisted living facility Do you feel safe at home: Yes Do you feel safe in your relationship?: Yes Additional Social history: [facility] Exam Narrative Exam Narrative: GENERAL APPEARANCE: Malnourished, toxic, lethargic, atraumatic. SKIN: Warm, pale, dry, intact, chronic ulceration to L ankle, no purulent drainage, NV intact distally HEAD: Normocephalic, atraumatic, normal hair distribution for gender/age. EYES: Pupils PERRLA, EOMs intact without nystagmus, normal conjunctiva, no exudates on lids/lashes. ENT: Nares patent, no circumoral cyanosis, no facial swelling, dried emesis circumorally. NECK: Supple, trachea midline, painless cervical ROM. LUNGS/CHEST: Lungs CTA bilaterally - no rhonchi/rales/wheezes diffusely, non-labored respirations, normal A/P diameter, symmetrical expansion, no chest wall deformity HEART (CV/PV): Tachycardic, regular rate and rhythm without murmur, no peripheral edema, no JVD. ABDOMEN: Soft, distended, no guarding, pain response with palpation diffusely, difficulty endorsing focality- epigastric/RUQ seems most focal, suprapubic distention MSK: Normal ROM, no swelling/deformity to bilateral UEs or LEs, moving all extremities without weakness, no cyanosis, spine midline without tenderness, normal curvature. NEURO: Mental Status AAOx4 - alert to person, place, time, events No facial droop, no forehead involvement. Motor: No focal weakness - strength 5/5 in bilateral UEs and LEs, proximal and distal, symmetric. Sensory: sensation intact to light touch globally. Gait normal: patient ambulated without ataxia into ED room. PSYCH: euthymic, cooperative, pleasant, appropriate speech
[2023-03-07 12:27] LABS: Source Nasal/Nares
--- NOTE | 2023-03-07 12:27 | DI.RAD_ITS ---
Exam(s) XR CHEST 1V IN DI DEPT EXAM: XR CHEST 1V IN DI DEPT CLINICAL HISTORY: sepsis; cough. TECHNIQUE: 2D digital imaging was performed. COMPARISON: CR,XR XR CHEST 2V PA LATERAL from 11/17/2022 FINDINGS: Single AP portable view. Carotid the wires noted. Prosthetic aortic valve. Heart size is upper normal. The mediastinum is not widened. Lungs are clear. No infiltrates nor obvious pleural effusions. No evidence of pulmonary edema. IMPRESSION: No acute pulmonary findings on this single AP portable view of the chest. DATA REPOSITORY: RADIATION DOSE DELIVERED:
[2023-03-07 12:28] LABS: Abs Immature Grans 0.05 10^3/uL (0.0-0.06); Absolute Basophil Count 0.01 10^3/uL (0.0-0.2); Absolute Lymphocyte Count 0.46 10^3/uL (1.2-3.4); Absolute Monocyte Count 0.14 10^3/uL (0.1-0.8); Absolute Neutrophil Count 7.93 10^3/uL (1.2-6.7); BE (Venous) -3 mmol/L (-2-3); Basophils % 0.1; HCO3 (Venous) 23 mmol/L (23-28); HCT 39.3 % (40.0-50.0); HGB 12.6 g/dL (13.5-17.5); Immature Grans % 0.6; Lymphocytes % 5.4; MCH 33.3 pg (27.0-33.0); MCHC 32.1 % (32.0-36.0); MCV 104 fL (80-95); MPV 10.8 fL (8.0-11.0); Monocytes % 1.6; Neutrophils % 92.3; O2 Sat (Venous) 61 %; Platelet Count 180 10^3/uL (130-400); RBC 3.78 10^6/uL (4.36-5.78); RDW 16.1 % (11.8-14.1); RDW-SD 62.5 fL; TCO2 (Venous) 21 mmol/L (24-29); WBC 8.59 10^3/uL (4.4-10.8); pCO2 (Venous) 43 mmHg (41-51); pH (Venous) 7.33 (7.31-7.41); pO2 (Venous) 35 mmHg
[2023-03-07] MEDS: ACETAMINOPHEN 1,000 MG/100 ML BTL 400 MG IVPB (12:38)
[2023-03-07] MEDS: cefTRIAXone 2 GM/50 ML BAG IVPB (12:38)
[2023-03-07] MEDS: metroNIDAZOLE 500 MG/100 ML BAG 100 MG IVPB ×2 (12:41→19:47)
[2023-03-07 12:46] LABS: ALT 17 U/L (16-63); AST 16 U/L (15-37); Alkaline Phosphatase 76 U/L (46-116); Anion Gap 14.9 mmol/L (3-11); BUN 78 mg/dL (7-18); Bilirubin, Total 0.6 mg/dL (0.2-1.0); CO2 23.1 mmol/L (21.0-32.0); Calcium 9.8 mg/dL (8.5-10.1); Chloride 102 mmol/L (98-107); Estimated GFR 10.59 (mL/min/1.73m2); Glucose 265 mg/dL (74-106); Potassium 5.2 mmol/L (3.5-5.1); Sodium 140 mmol/L (136-145); Total Protein 8.3 g/dL (6.4-8.2)
[2023-03-07 12:49] LABS: CREATININE 5.2 mg/dL (0.70-1.30)
[2023-03-07 13:08] LABS: COVID-19 PCR Negative (Negative)
[2023-03-07 13:12] LABS: Procalcitonin 0.3 ng/mL
--- NOTE | 2023-03-07 13:30 | DI.CT_ITS ---
Exam(s) CT ABDOMEN PELVIS WO EXAM: CT ABDOMEN PELVIS WO CLINICAL HISTORY: NVD, abdominal pain, severe sepsis. TECHNIQUE: Imaging Protocol: Axial computed tomography images with coronal and sagittal reformatted images were created and reviewed CONTRAST MATERIAL: Intravenous: none Oral: None COMPARISON: CT CT ABD AORTA CTA W RUNOFF from 02/04/2023 FINDINGS: VISUALIZED LUNG BASES: No nodules nor pleural effusions evident. Sternotomy wires. Prosthetic aorti c valve. Normal heart size. No pericardial effusion. Coronary artery calcification noted. ABDOMEN: There is no ascites. LIVER: There are no obvious focal hepatic lesions evident of this noninfused study. GALLBLADDER/BILIARY: No obvious gallbladder pathology. CBD is not dilated. PANCREAS: No evidence of pancreatic mass nor dilatation of the pancreatic duct. SPLEEN: Spleen size normal. Calcified splenic granulomas noted. No lesions nor abscess is evident i n the spleen. ADRENALS: There are no significant adrenal masses. KIDNEYS:No cysts nor solid renal masses. No radiopaque calculi but there appears to be mild bilatera l hydronephrosis and hydroureter . Lower most pelvic ureters are not dilated but the upper 2/3 of th e ureters are slightly prominent size and exhibits some mild surrounding streaking. Bladder is somew hat distended. Measures 14 cm AP by 12 mm wide by 15 cm craniocaudal. Contains some air. No gross thickening of the urinary bladder wall although there is some hyperdense material in the dependent as pect of the urinary bladder noted. On the left side this is probably calculus.. Andres catheter note d but appears to be in the prostatic urethra. This may be why the urinary bladder is distended ABDOMINAL AORTA: Abdominal aorta is not enlarged. LYMPH NODES: There is no retroperitoneal nor paraaortic adenopathy. ABDOMINAL WALL: There is a E right para umbilical anterior abdominal hernia which contains only fat a nd measures approximately 6 cm wide by 3 cm AP by 5 cm cephalocaudal. GI: There is no evidence of bowel obstruction, free air, nor abscess. PELVIS: LYMPH NODES: There is no intrapelvic nor inguinal adenopathy. GI: No evidence of appendicitis.There is some streaking around the sigmoid colon near the internal in guinal ring. There are no obvious diverticuli. URINARY BLADDER: As above. REPRODUCTIVE: Andres catheter appears to be inflated in the prostate urethra. The prostate gland is e nlarged, measuring 6.5 cm wide. OSSEOUS: No significant osseous lesions. Left hip prosthesis. No fractures evident. IMPRESSION: 1. Grossly distended urinary bladder and relatively symmetrical hydroureter and hydronephrosis which appears to be due to less than optimal position of the Andres catheter. The Andres balloon is inflated in the prostate urethra and is most probably causing obstruction with subsequent findings as above. 2. Right anterior abdominal wall para umbilical hernia with measurements as above. The hernia sac co ntains fat but no bowel loops. There is no bowel obstruction. 3. There is mild streaking adjacent to the sigmoid colon near the left internal inguinal ring. There are no obvious diverticuli. Called to ER physician RADIATION DOSE DELIVERED: Total DLP DATA REPOSITORY: All CT scans at this facility are submitted to the National Radiology Data Registry (NRDR) Dose Index Registry (DIR) with the [employer] (ACR). RADIATION OPTIMIZATION: All CT scans at this facility use at least one of these dose optimization te chniques: automated exposure control; mA and/or kV adjustment per patient size (includes targeted exa ms where dose is matched to clinical indication); or iterative reconstruction.
[2023-03-07] MEDS: VANCOMYCIN/WATER (PEG) 2 GM/400 ML BAG IVPB (13:46)
[2023-03-07 14:08] LABS: Lactate 5.6 mmol/L (0.6-1.4)
--- NOTE | 2023-03-07 14:51 | W.UROLOGYCON ---
Date of service: 03/07/23 Time of Service: 14:52 Assessment and Plan Assessment and plan (1) Bladder outlet obstruction: Status: Acute Assessment and plan: With the previous catheter balloon inflated in the prostatic urethra, we would like to leave his current Andres in place for at least a week to allow the urethral mucosa to heal. History of Present Illness History of Present Illness Chief Complaint: Difficult catheter placement Narrative: This is a 77-year-old gentleman who is being evaluated in the emergency department for sepsis. A Andres catheter was placed by the ER team. No urine drainage has been obtained. He had a CT of the abdomen and pelvis which showed that the catheter balloon was inflated in the prostatic fossa. I have been asked to place a Andres PFSH All Active Problems (Updated 03/10/23 @ 11:59 by Radha Kowalski DPM) Ulcer of left foot with fat layer exposed (Acute) Bladder outlet obstruction (Acute) Sepsis (Acute) Acute renal failure (Acute) Hydronephrosis (Acute) Acute kidney injury (Acute) Bladder outlet obstruction (Acute) Septic shock (Acute) Tibial artery occlusion, left (Acute) Osteomyelitis of left foot (Acute) S/P angioplasty (Acute) 02/12/23: LLE, posterior tibial artery, balloon angioplasty ([id number]) of TP trunk. PAD (peripheral artery disease) (Acute) Unstageable pressure ulcer of left heel (Acute) Diabetic wet gangrene of the foot (Acute) Wet gangrene (Acute) Discharge planning issues (Acute) DVT prophylaxis (Acute) Diabetic foot ulcer (Acute) Cellulitis of left lower limb (Acute) Weight loss (Acute) UTI (urinary tract infection) (Acute) Stroke (Chronic) Dementia (Chronic) Nonspecific paroxysmal spell (Acute) Brain TIA (Acute) Stenosis of right middle cerebral artery (Acute) MRSA colonization (Acute) Type 2 diabetes mellitus (Chronic) Medical History Middle cerebral artery stenosis Anemia, mild Tachy-sara syndrome Ambulatory dysfunction E coli infection Memory changes Tinea corporis Mobility impaired Rash Sepsis secondary to UTI Dizziness and giddiness BPH (benign prostatic hyperplasia) GERD (gastroesophageal reflux disease) Neuropathy Obesity HLD (hyperlipidemia) CHF (congestive heart failure) Urinary incontinence Psoriasis Diabetes Hyperglycemia Hypertension CAD (coronary artery disease) Hypercholesteremia Surgical History H/O hernia repair S/P appendectomy S/P knee replacement Hx of CABG H/O surgical procedure a. Aortic valve replacement 04/2013 b. left THR 10/04/2013 c. Left TKR 6-7 years ago S/P AVR (aortic valve replacement) 04/2013 Social History Smoking/Tobacco Use Status: Former Tobacco Use Smoking risk assessment performed?: Yes Alcohol Intake: never Drug use: Never Substance use type: does not use Housing: shelter Do you feel safe at home: Yes Do you feel safe in your relationship?: Yes Additional Social history: Current resident of [facility] Results Last Vital Signs Temp 37.1 C 03/07/23 12:08 Pulse 86 03/07/23 14:37 Resp 21 03/07/23 14:37 BP 148/63 H 03/07/23 14:37 Pulse Ox 95 03/07/23 14:00 Labs 03/10/23 06:14 03/10/23 06:14 Labs: Laboratory Results - last 24 hr 03/07/23 03/07/23 12:20 14:02 WBC 8.59 RBC 3.78 L Hgb 12.6 L Hct 39.3 L MCV 104 H MCH 33.3 H MCHC 32.1 RDW 16.1 H Plt Count 180 MPV 10.8 Immature Gran % 0.6 Neutrophils % 92.3 Lymphocytes % 5.4 Monocytes % 1.6 Eosinophils % 0.0 Basophils % 0.1 Nucleated RBC % 0.0 Absolute Neutrophils 7.93 H Absolute Lymphocytes 0.46 L Absolute Monocytes 0.14 Absolute Eosinophils 0.00 Absolute Basophils 0.01 VBG pH 7.33 VBG pCO2 43 VBG pO2 35 VBG HCO3 23 VBG Total CO2 21 L VBG O2 Saturation 61 VBG Base Excess -3 L VBG Lactate 6.0 H* 5.6 H* Sodium 140 Potassium 5.2 H Chloride 102 Carbon Dioxide 23.1 Anion Gap 14.9 H BUN 78 H Creatinine 5.2 H* D Est GFR (CKD-EPI 2020) 10.59 Glucose 265 H Calcium 9.8 Total Bilirubin 0.6 AST 16 ALT 17 Alkaline Phosphatase 76 Total Protein 8.3 H Albumin 3.0 L Procalcitonin 0.3 COVID-19 Source Nasal/Nares SARS-CoV-2 (PCR) Negative Insert Bladder Catheter Text: He was seen in the ER department on the stretcher. The previously placed catheter balloon was deflated and the catheter was removed. Blood and urine then was expelled from the urethra. His genitalia was then prepped with Betadine. 2% Xylocaine jelly was instilled into the urethra. An 18 [place] coud? tipped catheter was passed through the urethra into the bladder. The catheter balloon was inflated with 10 cc of sterile water. A catheterized urine sample was obtained and the catheter was then hooked to gravity drainage. Clear urine was obtained. He tolerated this procedure well
--- NOTE | 2023-03-07 14:53 | W.PM.HP.N ---
Date of service: 03/07/23 Time of Service: 14:54 Assessment and Plan Assessment and plan (1) Septic shock: Status: Acute Assessment and plan: suspected due to UTI secondary to chronic indwelling catheter and now with outlet obstruction started on vancomycin, ceftriaxone and flagyl day 1 responded to fluid resuscitation with lactate trending downward on recheck. (2) Bladder outlet obstruction: Status: Acute Assessment and plan: urology consulted and frank catheter replaced. (was embedded in prostate) monitor urinary output closely (3) Acute kidney injury: Status: Acute Assessment and plan: likely d/t bladder outlet obstruction, which is now resolved. monitor kidney function closely, avoid nephrotoxic drug and renal dose as needed. Adjustments made by pharmacy. Metformin placed on hold (4) PAD (peripheral artery disease): Status: Acute Assessment and plan: recent revascularization at [facility] (5) Diabetic foot ulcer: Status: Acute Assessment and plan: followed by podiatry (6) Type 2 diabetes mellitus: Status: Chronic Assessment and plan: Continue diabetic diet with sliding scale coverage as needed Will hold metformin in setting of acute kidney injury Last hemoglobin A1c 7.2 in October 2022 (7) Dementia: Status: Chronic Assessment and plan: At baseline (8) Discharge planning issues: Status: Acute Assessment and plan: DVT prophylaxis we will use heparin in setting of acute kidney injury Anticipate discharge back to [facility] and rehab once medically stable Discussed with Dr. Truong History of Present Illness History of Present Illness Chief Complaint: Tachycardia and acute kidney injury Narrative: This is a 77-year-old male patient with history of dementia diabetes peripheral arterial disease ischemic foot ulcer who presented by EMS from [facility] rehab after outpatient labs show acute kidney injury. Patient has been transferred here to [facility] for vascular evaluation as arranged by her metalworking specialist in the setting of ischemic diabetic foot ulcer. He was discharged back to the rehab center and outpatient lab checked and found to have a creatinine elevated at 5.2 up from 3.5 yesterday with a baseline of 1.0. He did have an indwelling Frank catheter which was not draining as it was embedded in his prostate. He had evidence of hydronephrosis and urology consulted Frank catheter changed out. His hypotension resolved with clearance of the obstruction and a fluid bolus. He will be admitted under the hospitalist services for septic shock source urinary. And ANASTACIA in the setting of bladder outlet obstruction. Review of Systems All systems reviewed & are unremarkable except as noted in HPI and below PFSH All Active Problems (Updated 03/07/23 @ 15:02 by FREDERIC Ackerman) Bladder outlet obstruction (Acute) Sepsis (Acute) Acute renal failure (Acute) Hydronephrosis (Acute) Acute kidney injury (Acute) Bladder outlet obstruction (Acute) Septic shock (Acute) Tibial artery occlusion, left (Acute) Osteomyelitis of left foot (Acute) S/P angioplasty (Acute) 02/12/23: LLE, posterior tibial artery, balloon angioplasty ([id number]) of TP trunk. PAD (peripheral artery disease) (Acute) Unstageable pressure ulcer of left heel (Acute) Diabetic wet gangrene of the foot (Acute) Wet gangrene (Acute) Discharge planning issues (Acute) DVT prophylaxis (Acute) Diabetic foot ulcer (Acute) Cellulitis of left lower limb (Acute) Weight loss (Acute) UTI (urinary tract infection) (Acute) Stroke (Chronic) Dementia (Chronic) Nonspecific paroxysmal spell (Acute) Brain TIA (Acute) Stenosis of right middle cerebral artery (Acute) MRSA colonization (Acute) Type 2 diabetes mellitus (Chronic) Medical History Middle cerebral artery stenosis Anemia, mild Tachy-sara syndrome Ambulatory dysfunction E coli infection Memory changes Tinea corporis Mobility impaired Rash Sepsis secondary to UTI Dizziness and giddiness BPH (benign prostatic hyperplasia) GERD (gastroesophageal reflux disease) Neuropathy Obesity HLD (hyperlipidemia) CHF (congestive heart failure) Urinary incontinence Psoriasis Diabetes Hyperglycemia Hypertension CAD (coronary artery disease) Hypercholesteremia Surgical History H/O hernia repair S/P appendectomy S/P knee replacement Hx of CABG H/O surgical procedure a. Aortic valve replacement 04/2013 b. left THR 10/04/2013 c. Left TKR 6-7 years ago S/P AVR (aortic valve replacement) 04/2013 Social History Smoking/Tobacco Use Status: Former Tobacco Use Smoking risk assessment performed?: Yes Alcohol Intake: never Drug use: Never Substance use type: does not use Housing: assisted Do you feel safe at home: Yes Do you feel safe in your relationship?: Yes Additional Social history: Current resident of [facility] Allergies and Home Medications Allergies Allergy/AdvReac Type Severity Reaction Status Date / Time No Known Allergies Allergy Verified 03/03/23 10:00 Home Medications Medication Instructions Recorded Confirmed Type atorvastatin 40 mg tablet 40 mg PO QHS 11/07/21 03/07/23 History dextrose 40 % oral gel (Glucose 15 g PO Q15M PRN 11/07/21 03/07/23 History Gel) glucagon 1 mg injection kit See Rx Instructions IM .COMPLEX 11/07/21 03/07/23 History magnesium hydroxide 400 mg/5 mL 30 ml PO DAILY PRN 11/07/21 03/07/23 History oral suspension multivitamin 1 tab PO DAILY 11/07/21 03/07/23 History sodium phosphates 19 gram-7 118 ml MI ONCE PRN 11/07/21 03/07/23 History gram/197 mL enema (Fleet Enema Extra) nitroglycerin 0.4 mg sublingual 0.4 mg sublingual PRN PRN 11/17/22 03/07/23 History tablet cefepime 2 gram solution for 2 g IV Q8H 02/09/23 03/03/23 Rx injection aspirin 81 mg tablet,delayed 81 mg PO DAILY 03/03/23 03/07/23 History release bisacodyl 10 mg rectal suppository 10 mg MI DAILY PRN 03/03/23 03/07/23 History cetirizine 10 mg capsule (All Day 10 mg PO DAILY PRN 03/03/23 03/07/23 History Allergy (cetirizine)) levofloxacin 750 mg tablet 750 mg PO DAILY 03/03/23 03/07/23 History metformin 1,000 mg tablet 500 mg PO BIDWMEAL 03/03/23 03/07/23 History oxycodone 10 mg tablet,crush 10 mg PO BID PRN ischemic leg 03/03/23 03/07/23 History resistant,extended release 12 hr pain, heel wound (OxyContin) oxycodone 5 mg capsule 5 mg PO Q12H PRN leg pain, before 03/03/23 03/07/23 History dressing changes pantoprazole 40 mg granules 40 mg PO DAILY for allergy 03/03/23 03/07/23 History delayed-release for susp in packet (Protonix) prednisone 10 mg tablet 10 mg PO DAILY psoriasis flare 03/03/23 03/07/23 History Exam Const General: cooperative and comfortable Nutritional Appearance: overweight Orientation: alert, awake and confused [facility] Head: normal to inspection, normocephalic and atraumatic Face and sinus: normal facial exam and face symmetric Eyes General: appearance normal, both eyes and all related structures (EOM intact, PERRLA) Neck Neck: normal visual inspection and full ROM Resp Effort & Inspection: normal respiratory effort and no respiratory distress Cardio Rate: regular rate Rhythm: regular rhythm GI Palpation: soft Skin Other: old healed surgical incision on left knee, denies pain to movement of left knee. Neuro General: patient alert and patient awake Cognition: abnormal cognition Results Labs 03/07/23 12:20 03/07/23 12:20 Labs: Laboratory Results - last 24 hr 03/07/23 03/07/23 12:20 14:02 WBC 8.59 RBC 3.78 L Hgb 12.6 L Hct 39.3 L MCV 104 H MCH 33.3 H MCHC 32.1 RDW 16.1 H Plt Count 180 MPV 10.8 Immature Gran % 0.6 Neutrophils % 92.3 Lymphocytes % 5.4 Monocytes % 1.6 Eosinophils % 0.0 Basophils % 0.1 Nucleated RBC % 0.0 Absolute Neutrophils 7.93 H Absolute Lymphocytes 0.46 L Absolute Monocytes 0.14 Absolute Eosinophils 0.00 Absolute Basophils 0.01 VBG pH 7.33 VBG pCO2 43 VBG pO2 35 VBG HCO3 23 VBG Total CO2 21 L VBG O2 Saturation 61 VBG Base Excess -3 L VBG Lactate 6.0 H* 5.6 H* Sodium 140 Potassium 5.2 H Chloride 102 Carbon Dioxide 23.1 Anion Gap 14.9 H BUN 78 H Creatinine 5.2 H* D Est GFR (CKD-EPI 2020) 10.59 Glucose 265 H Calcium 9.8 Total Bilirubin 0.6 AST 16 ALT 17 Alkaline Phosphatase 76 Total Protein 8.3 H Albumin 3.0 L Procalcitonin 0.3 COVID-19 Source Nasal/Nares SARS-CoV-2 (PCR) Negative Last Vital Signs Temp 37.1 C 03/07/23 12:08 Pulse 86 03/07/23 14:37 Resp 21 03/07/23 14:37 BP 148/63 H 03/07/23 14:37 Pulse Ox 95 03/07/23 14:00 Time Spent Time spent with Patient: 40-54 minutes Time was spent: preparing to see the patient(eg.review tests), obtaining and/or reviewing separately otained hiistory, ordering medications,tests, procedures and indepentently interpreting results
[2023-03-07 15:29] LABS: Bilirubin Negative (Negative); Blood Large (Negative); Clarity Cloudy (Clear); Glucose Negative (Negative); Ketones Negative (Negative); Leukocyte Esterase Negative (Negative); Nitrite Negative (Negative); Specific Gravity >= 1.030 (1.005-1.025); Urobilinogen 0.2 mg/dL (Up to 0.2)
[2023-03-07 15:40] LABS: Bacteria Rare HPF (Negative); C & S Indicated? C&S Done As Ordered; Casts Negative LPF (Negative); Crystals Negative HPF (Negative); Epithelial Cells Rare HPF (Negative); Mucus Trace (Negative); RBC >50 HPF (0-2)
[2023-03-07] MEDS: Atorvastatin 40 MG TAB PO (19:46)
[2023-03-07] MEDS: Normal Saline Flush 10 ML SYR IVP (19:50)
[2023-03-07 21:45] LABS: Lactate 4.2 mmol/L (0.6-1.4)
[2023-03-07] MEDS: Lactated Ringers 1,000 ML 75 ML IV (21:57)
--- NOTE | 2023-03-08 00:11 | NUR.NOTE ---
Nursing Note:0011 Performed patient mouth care, was showing some thrush-like accumulation on tongue. Cleaned with toothbrush and oral swabs, removed a large part of the covering, but needs ongoing mouth care. Patient is very cooperative, but gags some and has trouble with water in dripping out of mouth. Use care.
[2023-03-08 01:30] VITALS: BP 115/65; PULSE 82; RESP 16; TEMP 36.1; O2SAT 97
[2023-03-08] MEDS: metroNIDAZOLE 500 MG/100 ML BAG 100 MG IVPB ×3 (03:51→21:04)
[2023-03-08 06:45] LABS: Abs Immature Grans 0.04 10^3/uL (0.0-0.06); Absolute Basophil Count 0.01 10^3/uL (0.0-0.2); Absolute Eosinophil Count 0.06 10^3/uL (0.0-0.7); Absolute Lymphocyte Count 0.91 10^3/uL (1.2-3.4); Absolute Monocyte Count 0.14 10^3/uL (0.1-0.8); Absolute Neutrophil Count 4.89 10^3/uL (1.2-6.7); Basophils % 0.2; HCT 29.7 % (40.0-50.0); HGB 9.6 g/dL (13.5-17.5); Immature Grans % 0.7; MCH 33.7 pg (27.0-33.0); MCHC 32.3 % (32.0-36.0); MCV 104 fL (80-95); MPV 11.4 fL (8.0-11.0); Monocytes % 2.3; Neutrophils % 80.8; Platelet Count 133 10^3/uL (130-400); RBC 2.85 10^6/uL (4.36-5.78); RDW-SD 62.3 fL; WBC 6.05 10^3/uL (4.4-10.8)
--- NOTE | 2023-03-08 06:58 | NUR.NOTE ---
Accessed pt chart to determine number of EKG orders. Nursing Note:
[2023-03-08 07:15] LABS: Anion Gap 13.7 mmol/L (3-11); CO2 21.3 mmol/L (21.0-32.0); Calcium 8.7 mg/dL (8.5-10.1); Chloride 108 mmol/L (98-107); Estimated GFR 10.12 (mL/min/1.73m2); Glucose 119 mg/dL (74-106); Potassium 4.9 mmol/L (3.5-5.1); Sodium 143 mmol/L (136-145)
[2023-03-08 07:17] LABS: BUN 98 mg/dL (7-18); CREATININE 5.4 mg/dL (0.70-1.30)
[2023-03-08 07:18] VITALS: BP 131/73; PULSE 87; RESP 20; TEMP 36.5; O2SAT 96
[2023-03-08 08:13] LABS: Lactate 1.8 MMOL/l (0.9-1.7)
[2023-03-08 08:30] LABS: MRSA PCR Positive (Negative)
[2023-03-08 08:52] LABS: Lab Add On Test COMPLETED
[2023-03-08] MEDS: Aspirin E.C. 81 MG TABEC PO (08:53)
--- NOTE | 2023-03-08 09:03 | INITIAL_ITS ---
Date of service: 03/08/23 Time of Service: 09:03 Care Management Initial Assmt Initial Assessment REASON FOR HOSPITALIZATION:: septic shock PREVIOUS FUNCTIONAL STATUS/SOCIAL/FAMILY SUPPORTS:: Alvarez lives at [facility]. He is and his lives in [place], [place] Alvarez has 6 children and he stated that they have been supportive and good about coming to visit. He requires assistance with most ADLs but can feed himself. He does not get out of bed very often. CURRENT FUNCTIONAL STATUS:: Alvarez was sitting up in bed when CM met with him. He was pleasant and agreeable to conversation however he was slow to respond to some questions. Staff was able to confirm the accuracy of his answers. He has had visits from some of his children. Alvarez has a wound on his foot and ankle and a wound vac is being applied. He uses one at [facility] which is changed every M-W-. ADVANCE DIRECTIVES:: none on file Has patient been provided with info about the portal/API?: Yes Did the patient sign up for the portal?: No CODE STATUS:: DNR/DNI INSURANCE COVERAGE / FINANCIAL ISSUES:: Medicare [employer] CURRENT HOME/COMMUNITY SERVICES/EQUIPMENT:: lives in a nursing home facility PRIMARY CARE PHYSICIAN:: Sony Simmons POTENTIAL DISCHARGE NEEDS:: return to [facility] and follow up with facility providers PATIENT/FAMILY EDUCATION NEEDS:: Review of discharge instructions, limitations, follow up plan, discuss [employer] TRANSPORTATION:: via facility van PLAN:: Anticipate Alvarez will return to [facility] when medically cleared. He will follow up with the facility provider and plan of care and transport via facility w/c van. CM will follow and assess for discharge needs. [facility] All Active Problems (Updated 03/07/23 @ 15:02 by FREDERIC Ackerman) Bladder outlet obstruction (Acute) Sepsis (Acute) Acute renal failure (Acute) Hydronephrosis (Acute) Acute kidney injury (Acute) Bladder outlet obstruction (Acute) Septic shock (Acute) Tibial artery occlusion, left (Acute) Osteomyelitis of left foot (Acute) S/P angioplasty (Acute) 02/12/23: LLE, posterior tibial artery, balloon angioplasty ([id number]) of TP trunk. PAD (peripheral artery disease) (Acute) Unstageable pressure ulcer of left heel (Acute) Diabetic wet gangrene of the foot (Acute) Wet gangrene (Acute) Discharge planning issues (Acute) DVT prophylaxis (Acute) Diabetic foot ulcer (Acute) Cellulitis of left lower limb (Acute) Weight loss (Acute) UTI (urinary tract infection) (Acute) Stroke (Chronic) Dementia (Chronic) Nonspecific paroxysmal spell (Acute) Brain TIA (Acute) Stenosis of right middle cerebral artery (Acute) MRSA colonization (Acute) Type 2 diabetes mellitus (Chronic) Medical History Middle cerebral artery stenosis Anemia, mild Tachy-sara syndrome Ambulatory dysfunction E coli infection Memory changes Tinea corporis Mobility impaired Rash Sepsis secondary to UTI Dizziness and giddiness BPH (benign prostatic hyperplasia) GERD (gastroesophageal reflux disease) Neuropathy Obesity HLD (hyperlipidemia) CHF (congestive heart failure) Urinary incontinence Psoriasis Diabetes Hyperglycemia Hypertension CAD (coronary artery disease) Hypercholesteremia Surgical History H/O hernia repair S/P appendectomy S/P knee replacement Hx of CABG H/O surgical procedure a. Aortic valve replacement 04/2013 b. left THR 10/04/2013 c. Left TKR 6-7 years ago S/P AVR (aortic valve replacement) 04/2013 Social History Smoking/Tobacco Use Status: Former Tobacco Use Smoking risk assessment performed?: Yes Alcohol Intake: never Drug use: Never Substance use type: does not use Housing: longterm Do you feel safe at home: Yes Do you feel safe in your relationship?: Yes Additional Social history: Current resident of [facility]
[2023-03-08 09:08] LABS: Creatine Kinase 32 U/L (39-308)
[2023-03-08 10:38] LABS: Vancomycin, Random 22.5 ug/mL
[2023-03-08] MEDS: Heparin 5,000 UNITS/ML VIAL 5000 UNITS SC (10:42)
[2023-03-08 10:51] VITALS: BP 114/62; PULSE 80; RESP 20; TEMP 37.2; O2SAT 93
[2023-03-08] MEDS: Insulin Aspart 300 UNITS/3 ML PEN SC ×2 (12:10→16:03)
[2023-03-08] MEDS: cefTRIAXone 2 GM/50 ML BAG IVPB (12:11)
--- NOTE | 2023-03-08 14:46 | PGE_ITS ---
Date of Service Date of service: 03/08/23 Time of Service: 14:46 Assessment and Plan Assessment and plan (1) Septic shock: Status: Acute Assessment and plan: suspected due to UTI secondary to chronic indwelling catheter and now with outlet obstruction started on vancomycin, ceftriaxone and flagyl day 2, will stop vanco. urine culture unrevealing and concern for contamination responded to fluid resuscitation with lactate trending downward but not normalized, give another liter of saline (2) Bladder outlet obstruction: Status: Acute Assessment and plan: urology consulted and frank catheter replaced. (was embedded in prostate) monitor urinary output closely (3) Acute kidney injury: Status: Acute Assessment and plan: likely d/t bladder outlet obstruction, which is now resolved. monitor kidney function closely, avoid nephrotoxic drug and renal dose as needed. Adjustments made by pharmacy. Metformin continues to be on hold (4) PAD (peripheral artery disease): Status: Acute Assessment and plan: recent revascular[place] [facility] (5) Diabetic foot ulcer: Status: Acute Assessment and plan: followed by podiatry continue resume wound vac per [facility] discharge instructions. (6) Type 2 diabetes mellitus: Status: Chronic Assessment and plan: Continue diabetic diet with sliding scale coverage as needed Will hold metformin in setting of acute kidney injury Last hemoglobin A1c 7.2 in October 2022 (7) Dementia: Status: Chronic Assessment and plan: At baseline (8) Discharge planning issues: Status: Acute Assessment and plan: DVT prophylaxis we will use heparin in setting of acute kidney injury Anticipate discharge back to [facility] and rehab once medically stable Discussed with Dr. Da Silva Subjective Subjective Patient reports: no new complaints, tolerating liquids well, tolerating a regular diet and afebrile; denies voiding w/o difficulty (frank with bright blood) or shortness of breath Exam Const General: cooperative and comfortable Nutritional Appearance: overweight Orientation: alert, awake and confused [facility] Head: normal to inspection, normocephalic and atraumatic Face and sinus: normal facial exam and face symmetric Eyes General: appearance normal, both eyes and all related structures (EOM intact, PERRLA) Neck Neck: normal visual inspection and full ROM Resp Effort & Inspection: normal respiratory effort and no respiratory distress Cardio Rate: regular rate Rhythm: regular rhythm GI Palpation: soft Skin Lesions: lesion noted (dressing dry and intact to left foot) Neuro General: patient alert and patient awake Cognition: abnormal cognition Extrem Left lower extremity: foot Details: edema (trace) Objective Last Vital Signs Temp 37.2 C 03/08/23 10:51 Pulse 80 03/08/23 10:51 Resp 20 03/08/23 10:51 BP 114/62 03/08/23 10:51 Pulse Ox 93 03/08/23 10:51 Laboratory Results - last 24 hr 03/07/23 03/07/23 03/08/23 15:15 21:36 06:00 WBC RBC Hgb Hct MCV MCH MCHC RDW Plt Count MPV Immature Gran % Neutrophils % Lymphocytes % Monocytes % Eosinophils % Basophils % Nucleated RBC % Absolute Neutrophils Absolute Lymphocytes Absolute Monocytes Absolute Eosinophils Absolute Basophils VBG Lactate 4.2 H* Sodium Potassium Chloride Carbon Dioxide Anion Gap BUN Creatinine Est GFR (CKD-EPI 2020) Glucose Calcium Creatine Kinase Urine Color Dark Yellow Urine Clarity Cloudy Urine pH 5.0 Ur Specific [place] >= 1.030 H Urine Protein 100 H Urine Ketones Negative Urine Blood Large H Urine Nitrite Negative Urine Bilirubin Negative Urine Urobilinogen 0.2 Ur Leukocyte Esterase Negative Urine RBC >50 H Urine WBC 5-10 Ur Epithelial Cells Rare Urine Crystals Negative Urine Bacteria Rare Urine Casts Negative Urine Mucus Trace Ur Culture Indicated? C&S Done As Ordered Urine Glucose Negative Random Vancomycin MRSA (TEM-PCR) Cancelled Add-On Test Request 03/08/23 03/08/23 03/08/23 06:15 07:11 08:03 WBC 6.05 RBC 2.85 L Hgb 9.6 L D Hct 29.7 L MCV 104 H MCH 33.7 H MCHC 32.3 RDW 16.0 H Plt Count 133 MPV 11.4 H Immature Gran % 0.7 Neutrophils % 80.8 Lymphocytes % 15.0 Monocytes % 2.3 Eosinophils % 1.0 Basophils % 0.2 Nucleated RBC % 0.0 Absolute Neutrophils 4.89 Absolute Lymphocytes 0.91 L Absolute Monocytes 0.14 Absolute Eosinophils 0.06 Absolute Basophils 0.01 VBG Lactate 1.8 H Sodium 143 Potassium 4.9 Chloride 108 H Carbon Dioxide 21.3 Anion Gap 13.7 H BUN 98 H* Creatinine 5.4 H* Est GFR (CKD-EPI 2020) 10.12 Glucose 119 H Calcium 8.7 Creatine Kinase 32 L Urine Color Urine Clarity Urine pH Ur Specific [place] Urine Protein Urine Ketones Urine Blood Urine Nitrite Urine Bilirubin Urine Urobilinogen Ur Leukocyte Esterase Urine RBC Urine WBC Ur Epithelial Cells Urine Crystals Urine Bacteria Urine Casts Urine Mucus Ur Culture Indicated? Urine Glucose Random Vancomycin MRSA (TEM-PCR) Positive A Add-On Test Request COMPLETED 03/08/23 10:10 WBC RBC Hgb Hct MCV MCH MCHC RDW Plt Count MPV Immature Gran % Neutrophils % Lymphocytes % Monocytes % Eosinophils % Basophils % Nucleated RBC % Absolute Neutrophils Absolute Lymphocytes Absolute Monocytes Absolute Eosinophils Absolute Basophils VBG Lactate Sodium Potassium Chloride Carbon Dioxide Anion Gap BUN Creatinine Est GFR (CKD-EPI 2020) Glucose Calcium Creatine Kinase Urine Color Urine Clarity Urine pH Ur Specific [place] Urine Protein Urine Ketones Urine Blood Urine Nitrite Urine Bilirubin Urine Urobilinogen Ur Leukocyte Esterase Urine RBC Urine WBC Ur Epithelial Cells Urine Crystals Urine Bacteria Urine Casts Urine Mucus Ur Culture Indicated? Urine Glucose Random Vancomycin 22.5 MRSA (TEM-PCR) Add-On Test Request Time Spent with Patient Time Spent with Patient: 25-34 minutes Time was spent: preparing to see the patient(eg.review tests), obtaining and/or reviewing separately otained hiistory, ordering medications,tests, procedures and indepentently interpreting results
[2023-03-08] MEDS: oxyCODONE 5 MG TAB PO (16:02)
[2023-03-08 16:11] VITALS: BP 136/76; PULSE 79; RESP 18; TEMP 36.6; O2SAT 96
[2023-03-08 20:11] VITALS: BP 138/76; PULSE 83; RESP 16; TEMP 37.1; O2SAT 97
[2023-03-09 00:25] VITALS: BP 118/54; PULSE 80; RESP 18; TEMP 37.6; O2SAT 96
[2023-03-09] MEDS: metroNIDAZOLE 500 MG/100 ML BAG 100 MG IVPB ×3 (04:03→19:47)
[2023-03-09 04:11] VITALS: BP 137/60; PULSE 72; RESP 18; TEMP 36.8; O2SAT 98
[2023-03-09 06:47] LABS: Lactate 1.6 mmol/L (0.6-1.4)
[2023-03-09 06:53] LABS: Abs Immature Grans 0.03 10^3/uL (0.0-0.06); Absolute Basophil Count 0.01 10^3/uL (0.0-0.2); Absolute Eosinophil Count 0.16 10^3/uL (0.0-0.7); Absolute Lymphocyte Count 0.58 10^3/uL (1.2-3.4); Absolute Monocyte Count 0.14 10^3/uL (0.1-0.8); Absolute Neutrophil Count 4.15 10^3/uL (1.2-6.7); Basophils % 0.2; Eosinophils % 3.2; HCT 31.1 % (40.0-50.0); HGB 10.1 g/dL (13.5-17.5); Immature Grans % 0.6; Lymphocytes % 11.4; MCH 33.7 pg (27.0-33.0); MCHC 32.5 % (32.0-36.0); MCV 104 fL (80-95); MPV 11.3 fL (8.0-11.0); Monocytes % 2.8; Neutrophils % 81.8; Platelet Count 127 10^3/uL (130-400); RDW 16.1 % (11.8-14.1); RDW-SD 61.1 fL; WBC 5.07 10^3/uL (4.4-10.8)
[2023-03-09 07:08] LABS: ALT 13 U/L (16-63); AST 29 U/L (15-37); Albumin 2.3 g/dL (3.4-5.0); Alkaline Phosphatase 57 U/L (46-116); Anion Gap 10.8 mmol/L (3-11); Bilirubin, Total 0.4 mg/dL (0.2-1.0); CO2 22.2 mmol/L (21.0-32.0); Calcium 8.8 mg/dL (8.5-10.1); Chloride 111 mmol/L (98-107); Glucose 161 mg/dL (74-106); Sodium 144 mmol/L (136-145); Total Protein 6.7 g/dL (6.4-8.2)
[2023-03-09 07:11] LABS: BUN 106 mg/dL (7-18)
[2023-03-09 07:40] VITALS: BP 128/72; PULSE 79; RESP 18; TEMP 36.8; O2SAT 97
[2023-03-09] MEDS: Aspirin E.C. 81 MG TABEC PO (07:56)
[2023-03-09] MEDS: Insulin Aspart 300 UNITS/3 ML PEN SC ×3 (07:56→16:58)
[2023-03-09] MEDS: hydrOXYzine HCL 25 MG TAB PO (07:56)
[2023-03-09 08:32] LABS: Vancomycin, Random 16.5 ug/mL
[2023-03-09] MEDS: cefTRIAXone 2 GM/50 ML BAG IVPB (11:21)
[2023-03-09 11:31] VITALS: BP 149/73; PULSE 74; RESP 18; TEMP 36.1; O2SAT 97
--- NOTE | 2023-03-09 13:17 | W.PM.PROGNOT ---
Date of Service Date of service: 03/09/23 Time of Service: 13:18 Assessment and Plan Assessment and plan (1) Septic shock: Status: Acute Assessment and plan: suspected due to UTI secondary to chronic indwelling catheter and now with outlet obstruction started on vancomycin, ceftriaxone and flagyl day 3, will stop vanco. urine culture unrevealing and concern for contamination responded to fluid resuscitation with lactate trending downward but not normalized, give another liter of saline (2) Bladder outlet obstruction: Status: Acute Assessment and plan: urology consulted and frank catheter replaced. (was embedded in prostate) monitor urinary output closely (3) Acute kidney injury: Status: Acute Assessment and plan: likely d/t bladder outlet obstruction, which is now resolved. monitor kidney function closely, avoid nephrotoxic drug and renal dose as needed. Adjustments made by pharmacy. Metformin continues to be on hold will check fena score to see if ATN also contributing to ongoing (4) PAD (peripheral artery disease): Status: Acute Assessment and plan: [place] [facility] [place]5) Diabetic foot ulcer: Status: Acute Assessment and plan: followed by podiatry continue wound vac [place] [facility] [place]. (6) Type 2 diabetes mellitus: Status: Chronic Assessment and plan: Continue diabetic diet with sliding scale coverage as needed Will hold metformin in setting of acute kidney injury Last hemoglobin A1c 7.2 in October 2022 (7) Dementia: Status: Chronic Assessment and plan: At baseline (8) Discharge planning issues: Status: Acute Assessment and plan: DVT prophylaxis we will use heparin in setting of acute kidney injury Anticipate discharge back to [facility] and rehab once medically stable Discussed with Dr. Da Silva Subjective Subjective Patient reports: no new complaints, tolerating liquids well, tolerating a regular diet, no bowel movement (last bm 03/07) and afebrile; denies shortness of breath Interval history since last seen: urine now lacie brown rather than bright red. Exam Const General: cooperative and comfortable Nutritional Appearance: overweight Orientation: alert, awake and confused [facility] Head: normal to inspection, normocephalic and atraumatic Face and sinus: normal facial exam and face symmetric Eyes General: appearance normal, both eyes and all related structures (EOM intact, PERRLA) Neck Neck: normal visual inspection and full ROM Resp Effort & Inspection: normal respiratory effort and no respiratory distress Cardio Rate: regular rate Rhythm: regular rhythm GI Palpation: soft Skin Lesions: lesion noted (left heel, wound vac intact.) Other: old healed surgical incision on left knee, denies pain to movement of left knee. Neuro General: patient alert and patient awake Cognition: abnormal cognition Objective Last Vital Signs Temp 36.1 C L 03/09/23 11:31 Pulse 74 03/09/23 11:31 Resp 18 03/09/23 11:31 BP 149/73 H 03/09/23 11:31 Pulse Ox 97 03/09/23 11:31 Laboratory Results - last 24 hr 03/09/23 03/09/23 06:32 08:09 WBC 5.07 RBC 3.00 L Hgb 10.1 L Hct 31.1 L MCV 104 H MCH 33.7 H MCHC 32.5 RDW 16.1 H Plt Count 127 L MPV 11.3 H Immature Gran % 0.6 Neutrophils % 81.8 Lymphocytes % 11.4 Monocytes % 2.8 Eosinophils % 3.2 Basophils % 0.2 Nucleated RBC % 0.0 Absolute Neutrophils 4.15 Absolute Lymphocytes 0.58 L Absolute Monocytes 0.14 Absolute Eosinophils 0.16 Absolute Basophils 0.01 VBG Lactate 1.6 H Sodium 144 Potassium 5.0 Chloride 111 H Carbon Dioxide 22.2 Anion Gap 10.8 BUN 106 H* Creatinine 5.0 H* Est GFR (CKD-EPI 2020) 11.10 Glucose 161 H Calcium 8.8 Total Bilirubin 0.4 AST 29 ALT 13 L Alkaline Phosphatase 57 Total Protein 6.7 Albumin 2.3 L Random Vancomycin 16.5 Time Spent with Patient Time Spent with Patient: 25-34 minutes Time was spent: preparing to see the patient(eg.review tests), obtaining and/or reviewing separately otained hiistory and ordering medications,tests, procedures
[2023-03-09] MEDS: Lactated Ringers 1,000 ML 125 ML IV (13:30)
[2023-03-09 14:53] VITALS: BP 157/72; PULSE 71; RESP 18; TEMP 36.5; O2SAT 98
[2023-03-09 19:49] VITALS: BP 145/76; PULSE 81; RESP 18; TEMP 36.5; O2SAT 97
--- NOTE | 2023-03-10 | DI.US_ITS ---
APPROVED REPORT EXAM: Comprehensive 2D, Doppler, and color-flow Echocardiogram Patient Location: In-Patient Room/Bed: [address] [employer] Load Builder: Vignehs Bennett RDCS (AE) Indications: fungemia, concern for endocarditisi Other Information Study Quality: Good. Technically limited study due to body habitus, inability to position patient. Conclusion Concentric left ventricular hypertrophy. Ejection fraction is 60%. Wall motion is normal there is s tage I diastolic dysfunction which is normal for age Normal right ventricular size and systolic function Both atria are normal in size There is a bioprosthetic aortic valve present with normal gradients, trace regurgitation Normal mitral valve with mild regurgitation Normal tricuspid valve with trace regurgitation Mildly dilated ascending aorta Within the limits of the study no valvular vegetations were identified Wall motion Left Ventricle The left ventricle is normal size. The left ventricular systolic function is normal. The left ventric ular ejection fraction is within the normal range. Mild concentric left ventricular hypertrophy. Ther e is normal LV segmental wall motion. There is no ventricular septal defect visualized. LVEF is 60%. Right Ventricle The right ventricle is normal size. Right ventricular systolic function is grossly normal. Unable to assess PA pressure. Atria The left atrium size is normal. The right atrium size is normal. The interatrial septum is intact wit h no evidence for an atrial septal defect. Aortic Valve Bioprosthetic aortic valve is present. Trace aortic regurgitation. Mitral Valve The mitral valve is normal in structure. No evidence of mitral valve stenosis. Mild mitral regurgitat ion. Tricuspid Valve The tricuspid valve is normal in structure. There is no tricuspid valve stenosis. Trace tricuspid reg urgitation. Pulmonic Valve The pulmonary valve is normal in structure. There is no pulmonic valvular stenosis. There is no pulmo shelbi valvular regurgitation. Great Vessels The aortic root is normal in size. The ascending aorta is mildly dilated. Aortic arch is not well vis ualized. IVC is normal in size and collapses >50% with inspiration. Pericardium There is no pericardial effusion. 2D Dimensions IVSD d PLAX 1.32 cm M: 0.6-1.2 Ao Root d 3.00 cm M: 3.1 - 3.7 LVPW d PLAX 1.23 cm M: 0.6 - 1.2 Ao Asc Diam d 3.55 cm M: 2.6 - 3.4 LVID d PLAX 4.22 cm M: 4.2 - 5.8 LVDs 2.89 cm M: 2.5 - 4.0 LV EF Teichholz 59.9 % FS 31.60 % LV EDV (Teich) 79.4 mL LV ESV (Teich) 31.8 mL Stroke Vol Index (Teich) 22.43 Auto EF LV EDV A4C 73.1 mL LV EDV A2C 184.3 mL LV EDV BP 115.7 mL LV ESV A4C 29.5 mL LV ESV A2C 70.9 mL LV ESV BP 45.5 mL LVEF(%) A4C 59.7 % LVEF(%) A2C 61.5 % LVEF(%) BP 60.7 % LV SV A4C 43.7 ml LV SV A2C 113.4 ml LV SV BP 70.2 ml LV CO A4C 3.7 L/min LV CO A2C 9.0 L/min LV CO BP 6.3 L/min HR A4C 84.91 BPM HR A2C 79.30 BPM LV EDV Index (BP) LA Volume LA Length A4C 5.9 cm LA Length A2C LA Area A4C s 13.73 cm2 LA Area A2C s LA Vol A4C A-L 27.15 mL LA Vol A2C A-L LA Vol Biplane A-L LA Vol A4C MOD 29.0 mL LA Vol A2C MOD LA Vol BP MOD RA Volume RA Area A4C 10.6 cm2 RA ESV A4C (A-L) 17.4mL RA Vol/BSA A4C A-L RA Length A4C 5.5 cm RA ESV A4C (MOD) 18.0mL LV Diastology MV E' medial 0.085 (>0.07 m/s) MV E Vmax 0.71 (0.4-1.3 m/s) MV E/E' MED 8.33 (<14) MV A Vmax 1.00 (0.4-1.3 m/s) MV E' lateral 0.074 (>0.1 m/s) E/A Ratio 0.7 MV E/E' LAT 9.56 (<14) MV E' Average 0.079 m/s MV E/E'(average) 8.90 Aortic Valve AoV Vmax 1.97 m/s LVOT Vmax 1.23 m/s AoV Peak Grad 15.5 mmHg LVOT Peak Grad 6.1 mmHg AoV Area (Vmax) 1.72 cm2 LVOT VTI 0.190 m AoV VTI 0.381 m LVOT Mean Grad 2.3 mmHg AoV Mean Vimal. 1.22 m/s LVOT SV 52.30 mL AoV Mean Grad 7.1 mmHg LVOT Diam s 1.85 cm AoV Area (VTI) 1.37 cm2 Velocity Ratio 0.62 Mitral Valve MV DT 183 (160-240 msec) Pulmonary Valve PV Vmax 1.32 (0.5-1.5 m/s) RVOT Vmax 0.73 m/s PV Peak Grad 7.0 mmHg RVOT Peak Gr. 2.1 mmHg PV Mean Vimal 0.78 m/s RVOT VTI 0.131 m PV Mean Grad 2.9 mmHg RVOT Mean Gr. 1.1 mmHg
[2023-03-10 00:15] VITALS: BP 126/77; PULSE 78; RESP 16; TEMP 36.5; O2SAT 98
[2023-03-10] MEDS: metroNIDAZOLE 500 MG/100 ML BAG 100 MG IVPB ×3 (04:24→19:42)
[2023-03-10 04:54] VITALS: BP 151/68; PULSE 98; RESP 16; TEMP 36.3; O2SAT 95
[2023-03-10 06:54] LABS: Abs Immature Grans 0.02 10^3/uL (0.0-0.06); Absolute Basophil Count 0.02 10^3/uL (0.0-0.2); Absolute Eosinophil Count 0.11 10^3/uL (0.0-0.7); Absolute Lymphocyte Count 0.31 10^3/uL (1.2-3.4); Absolute Monocyte Count 0.15 10^3/uL (0.1-0.8); Absolute Neutrophil Count 4.06 10^3/uL (1.2-6.7); Basophils % 0.4; Eosinophils % 2.4; HCT 30.8 % (40.0-50.0); HGB 10.2 g/dL (13.5-17.5); Immature Grans % 0.4; Lymphocytes % 6.6; MCH 33.9 pg (27.0-33.0); MCHC 33.1 % (32.0-36.0); MCV 102 fL (80-95); MPV 11.6 fL (8.0-11.0); Monocytes % 3.2; Platelet Count 128 10^3/uL (130-400); RBC 3.01 10^6/uL (4.36-5.78); RDW-SD 60.6 fL; WBC 4.67 10^3/uL (4.4-10.8)
[2023-03-10 07:04] LABS: Creatinine,Urine 65.83 mg/dL; Sodium, Urine 60 mmol/L
[2023-03-10 07:16] LABS: Anion Gap 9.9 mmol/L (3-11); CO2 24.1 mmol/L (21.0-32.0); Calcium 8.7 mg/dL (8.5-10.1); Chloride 113 mmol/L (98-107); Estimated GFR 15.43 (mL/min/1.73m2); Glucose 236 mg/dL (74-106); Potassium 4.3 mmol/L (3.5-5.1); Sodium 147 mmol/L (136-145)
[2023-03-10 07:19] LABS: BUN 105 mg/dL (7-18); CREATININE 3.8 mg/dL (0.70-1.30)
[2023-03-10] MEDS: hydrOXYzine HCL 10 MG TAB PO (08:58)
[2023-03-10] MEDS: Milk of Magnesia 30 ML CUP PO (08:58)
[2023-03-10] MEDS: Aspirin E.C. 81 MG TABEC PO (08:58)
[2023-03-10] MEDS: Insulin Aspart 300 UNITS/3 ML PEN SC ×2 (09:01→12:16)
[2023-03-10 09:06] VITALS: BP 138/77; PULSE 79; RESP 18; TEMP 36.3; O2SAT 100
--- NOTE | 2023-03-10 09:50 | PDOC.CMPRO ---
Date of service: 03/10/23 Time of Service: 09:50 Care Management Progress Note Progress Note Text Progress Note Text: S/O: Alvarez was resting when CM met with him today. Per report, one of his blood cultures were positive; blood cultures will be repeated today. He will return to [facility] once he is medically cleared. CM will continue to follow. A: Alvarez is a 77 year old male admitted to [facility] on 03/07/23 for septic shock. P: Anticipate Alvarez will return to [facility] when medically cleared. He will follow up with the facility provider and plan of care and transport via facility w/c van. CM will follow and assess for discharge needs.
--- NOTE | 2023-03-10 11:32 | POCOE_ITS ---
Date of service: 03/10/23 Time of Service: 10:00 Assessment and Plan Assessment and plan (1) Unstageable pressure ulcer of left heel: Status: Acute (2) Dementia: Status: Chronic (3) Stroke: Status: Chronic (4) Type 2 diabetes mellitus: Status: Chronic (5) Diabetic foot ulcer: Status: Acute Assessment and plan: Patient was seen and evaluated bedside today. He is status post OR I&D date of surgery 02/04/2023. s/p balloon angioplasty TP trunk and post tib artery by Vascular, [facility] as well as heel debridement to bone with bone cultures sent on 02/12/23. Chart was reviewed. Cultures from 02/04/2023 demonstrate group C strep and pseudomonas. Please continue IV antibiotics X rays were ordered today to evaluate helen integrity. I recommend continuing the wound VAC at this time. Patient is to remain non-weightbearing to the left lower extremity. He may toe- touch for transfers. Planning OR wound debridement for Friday. He will require medical clearance. I discussed the case with anesthesia and they are comfortable proceeding for now and aware of fungemia which is being managed by the Medicine team. I discussed the case with the patient's daughter Ar and advised her of the presence of the wound. I discussed the procedure in detail with the patient and daughter as well. We will continue to follow. Thank you for allowing me to participate in this patient's care (6) Ulcer of left foot with fat layer exposed: Status: Acute History of Present Illness Consults Consult date: 03/10/23 Requesting physician: Maribell Das Review of Systems Musculoskeletal Comments: Left heel wound PFSH All Active Problems (Updated 03/10/23 @ 11:59 by Radha Kowalski DPM) Ulcer of left foot with fat layer exposed (Acute) Bladder outlet obstruction (Acute) Sepsis (Acute) Acute renal failure (Acute) Hydronephrosis (Acute) Acute kidney injury (Acute) Bladder outlet obstruction (Acute) Septic shock (Acute) Tibial artery occlusion, left (Acute) Osteomyelitis of left foot (Acute) S/P angioplasty (Acute) 02/12/23: LLE, posterior tibial artery, balloon angioplasty ([id number]) of TP trunk. PAD (peripheral artery disease) (Acute) Unstageable pressure ulcer of left heel (Acute) Diabetic wet gangrene of the foot (Acute) Wet gangrene (Acute) Discharge planning issues (Acute) DVT prophylaxis (Acute) Diabetic foot ulcer (Acute) Cellulitis of left lower limb (Acute) Weight loss (Acute) UTI (urinary tract infection) (Acute) Dementia (Chronic) Nonspecific paroxysmal spell (Acute) Brain TIA (Acute) Stenosis of right middle cerebral artery (Acute) MRSA colonization (Acute) Stroke (Chronic) Type 2 diabetes mellitus (Chronic) Medical History Middle cerebral artery stenosis Anemia, mild Tachy-sara syndrome Ambulatory dysfunction E coli infection Memory changes Tinea corporis Mobility impaired Rash Sepsis secondary to UTI Dizziness and giddiness BPH (benign prostatic hyperplasia) GERD (gastroesophageal reflux disease) Neuropathy Obesity HLD (hyperlipidemia) CHF (congestive heart failure) Urinary incontinence Psoriasis Diabetes Hyperglycemia Hypertension CAD (coronary artery disease) Hypercholesteremia Surgical History H/O hernia repair S/P appendectomy S/P knee replacement Hx of CABG H/O surgical procedure a. Aortic valve replacement 04/2013 b. left THR 10/04/2013 c. Left TKR 6-7 years ago S/P AVR (aortic valve replacement) 04/2013 Social History Smoking/Tobacco Use Status: Former Tobacco Use Smoking risk assessment performed?: Yes Alcohol Intake: never Drug use: Never Substance use type: does not use Housing: care home Do you feel safe at home: Yes Do you feel safe in your relationship?: Yes Additional Social history: Current resident of [facility] Exam Extrem Other: Bilateral lower extremity physical exam: Derm: Skin is warm dry and supple bilaterally. Wound VAC was noted to be intact and without any leaks (there is a full-thickness ulceration noted to the plantar medial and posterior aspect of the left heel, there is exposed fat pad noted the base is peripherally granular however mostly fat pad centrally with some necrosis/black discoloration no periwound erythema there is edema noted to the left lower extremity, no proximal streaking no fluctuance no malodor today no palpable abscess no crepitus no probe to bone. Edema overall resolving to the left foot. Some tenderness to palpation noted to the left heel around the wound. Vascular: DP PT pulses are nonpalpable bilateral lower extremity however dopplerable. MSK muscle strength testing deferred today. There is pain on palpation noted to the left heel, pain noted to the hip and knee with moving the leg Neuro: Light touch sensation noted to be absent bilaterally Results Last Vital Signs Temp 97.3 F L 03/10/23 09:06 Pulse 79 03/10/23 09:06 Resp 18 03/10/23 09:06 BP 138/77 03/10/23 09:06 Pulse Ox 100 03/10/23 09:06 Labs 03/10/23 06:14 03/10/23 06:14 Labs: Laboratory Results - last 24 hr 03/10/23 03/10/23 06:06 06:14 WBC 4.67 RBC 3.01 L Hgb 10.2 L Hct 30.8 L MCV 102 H MCH 33.9 H MCHC 33.1 RDW 16.0 H Plt Count 128 L MPV 11.6 H Immature Gran % 0.4 Neutrophils % 87.0 Lymphocytes % 6.6 Monocytes % 3.2 Eosinophils % 2.4 Basophils % 0.4 Nucleated RBC % 0.0 Absolute Neutrophils 4.06 Absolute Lymphocytes 0.31 L Absolute Monocytes 0.15 Absolute Eosinophils 0.11 Absolute Basophils 0.02 Sodium 147 H Potassium 4.3 Chloride 113 H Carbon Dioxide 24.1 Anion Gap 9.9 BUN 105 H* Creatinine 3.8 H* Est GFR (CKD-EPI 2020) 15.43 Glucose 236 H Calcium 8.7 Ur Random Creatinine 65.83 Ur Random Sodium 60
--- NOTE | 2023-03-10 11:33 | DI.RAD_ITS ---
Exam(s) XR FOOT LT COMPLETE XR HEEL LT OS CALCIS EXAM: XR HEEL LT OS CALCIS and XR foot LT complete CLINICAL HISTORY: osteomyletis left heel. TECHNIQUE: 2D digital imaging was performed. Five images were obtained. COMPARISON: CR XR HEEL LT OS CALCIS from 02/03/2023 CR,XR XR FOOT LT COMPLETE from 03/10/2023 FINDINGS: BONES: No acute fracture is present. No bony destructive lesion is seen. JOINTS: No dislocation present. The joint spaces are well maintained. SOFT TISSUE: Vascular calcifications are present. There is a depression in subcutaneous air seen in the heel of the foot suggestive of ulcer. Please correlate clinically. IMPRESSION: 1. Findings suspicious for an soft tissue ulcer at the heel of the foot. 2. No radiographic evidence of osteomyelitis. DATA REPOSITORY: RADIATION DOSE DELIVERED:
[2023-03-10] MEDS: cefTRIAXone 2 GM/50 ML BAG IVPB (12:16)
--- NOTE | 2023-03-10 14:55 | W.INDIABCONS ---
Date of service: 03/10/23 Time of Service: 14:55 Diabetes Inpatient Consult Reason for Visit: Consult - Diabetes Education DESCRIPTION/ASSESSMENT: Mr Farmer is a 77yo male admitted with ANASTACIA/acute renal failure and sepsis. History of DMII and has unstageable pressure wound to left feel. History of stroke and dementia. Pt sleeping x2 when attempting visits today. Currently ordered for glucose fingersticks ACHS and treated with sensitive sliding scale insulin aspart 800, 1200 and 1700 (takes metformin BID at home). Ordered for consistent cho diet order with normal consistencies. Noted <50% intake at meals and significant wt loss of 12.75kg since 02/03/23 (around 107kg seems to be his normal BW). fasting glucose was 236 this morning, 161 yesterday and 118 Friday. Last a1C was 7.2 back in July this year. Prednisone listed on home meds and this might contribute to hyperglycemia (no steroids currently). INTERVENTION: considering increased protein needs for wound healing and noted wt loss, will provide glucerna nutrition supplement at dinner and breakfast. Will add low sodium to consistent cho diet order due to current high sodium level (147) and acute state of kidney dysfunction. PLAN: will monitor weight, intake, and tolerance of nutrition supplement. Follow up within 48 hours to offer diabetes education and offer outpatient services Time Spent in Nutritional Counseling and Treatment: 15 minutes
[2023-03-10 15:51] VITALS: BP 156/73; PULSE 69; RESP 16; TEMP 36.6; O2SAT 99
--- NOTE | 2023-03-10 16:46 | W.PM.PROGNOT ---
Date of Service Date of service: 03/10/23 Time of Service: 16:47 Assessment and Plan Assessment and plan (1) Fungemia: Status: Acute Assessment and plan: 1 blood culture tube positive for yeast. Started on micafungin day 1 with repeat blood cultures obtained Echocardiogram pending his lactic acid continues to trend down he has been afebrile normal white count (2) Septic shock: Status: Acute Assessment and plan: suspected due to UTI secondary to chronic indwelling catheter and now with outlet obstruction started on vancomycin, ceftriaxone and flagyl day 4, stable off vanco. urine culture unrevealing and concern for contamination responded to fluid resuscitation with lactate trending downward but not normalized, give another liter of saline (3) Bladder outlet obstruction: Status: Acute Assessment and plan: urology consulted and frank catheter replaced. (was embedded in prostate) monitor urinary output closely (4) Acute kidney injury: Status: Acute Assessment and plan: likely d/t bladder outlet obstruction, which is now resolved. monitor kidney function closely, avoid nephrotoxic drug and renal dose as needed. Adjustments made by pharmacy. Metformin continues to be on hold will check fena score to see if ATN also contributing to ongoing (5) PAD (peripheral artery disease): Status: Acute Assessment and plan: recent revascularization at [facility] (6) Diabetic foot ulcer: Status: Acute Assessment and plan: followed by podiatry continue wound vac per [facility] discharge instructions. (7) Type 2 diabetes mellitus: Status: Chronic Assessment and plan: Continue diabetic diet with sliding scale coverage as needed Will hold metformin in setting of acute kidney injury Last hemoglobin A1c 7.2 in October 2022 (8) Dementia: Status: Chronic Assessment and plan: At baseline (9) Discharge planning issues: Status: Acute Assessment and plan: DVT prophylaxis we will use heparin in setting of acute kidney injury Anticipate discharge back to [facility] and rehab once medically stable Discussed with Dr. Da Silva Subjective Subjective Patient reports: no new complaints, tolerating liquids well, tolerating a regular diet and afebrile; denies shortness of breath Interval history since last seen: Patient remains at his baseline no active issues noted no sign of untreated infection. Exam Const General: cooperative and comfortable Nutritional Appearance: overweight Orientation: alert, awake and confused [facility] Head: normal to inspection, normocephalic and atraumatic Face and sinus: normal facial exam and face symmetric Eyes General: appearance normal, both eyes and all related structures (EOM intact, PERRLA) Neck Neck: normal visual inspection and full ROM Resp Effort & Inspection: normal respiratory effort and no respiratory distress Cardio Rate: regular rate Rhythm: regular rhythm GI Palpation: soft Skin Lesions: lesion noted (left heel, wound vac intact.) Other: old healed surgical incision on left knee, denies pain to movement of left knee. Neuro General: patient alert and patient awake Cognition: abnormal cognition Objective Last Vital Signs Temp 36.6 C 03/10/23 15:51 Pulse 69 03/10/23 15:51 Resp 16 03/10/23 15:51 BP 156/73 H 03/10/23 15:51 Pulse Ox 99 03/10/23 15:51 Laboratory Results - last 24 hr 03/10/23 03/10/23 06:06 06:14 WBC 4.67 RBC 3.01 L Hgb 10.2 L Hct 30.8 L MCV 102 H MCH 33.9 H MCHC 33.1 RDW 16.0 H Plt Count 128 L MPV 11.6 H Immature Gran % 0.4 Neutrophils % 87.0 Lymphocytes % 6.6 Monocytes % 3.2 Eosinophils % 2.4 Basophils % 0.4 Nucleated RBC % 0.0 Absolute Neutrophils 4.06 Absolute Lymphocytes 0.31 L Absolute Monocytes 0.15 Absolute Eosinophils 0.11 Absolute Basophils 0.02 Sodium 147 H Potassium 4.3 Chloride 113 H Carbon Dioxide 24.1 Anion Gap 9.9 BUN 105 H* Creatinine 3.8 H* Est GFR (CKD-EPI 2020) 15.43 Glucose 236 H Calcium 8.7 Ur Random Creatinine 65.83 Ur Random Sodium 60 Time Spent with Patient Time Spent with Patient: 35-49 minutes Time was spent: preparing to see the patient(eg.review tests), ordering medications,tests, procedures and indepentently interpreting results
--- NOTE | 2023-03-10 20:01 | DI.VRAD_ITS ---
PROCEDURE INFORMATION: Exam: XR Left Foot Exam date and time: 03/10/2023 7:11 PM Age: 77 years old Clinical indication: Pain; Heel; Left; Patient HX: Non healing wound TECHNIQUE: Imaging protocol: Radiologic exam of the left foot. Views: 3 or more views. COMPARISON: CT ABD AORTA CTA W RUNOFF 02/04/2023 4:13 PM FINDINGS: Bones/joints: Normal. Soft tissues: Normal. IMPRESSION: No acute findings. Dictated and Authenticated by: David Eckert MD. Ordering:AARON Garcia MD
--- NOTE | 2023-03-10 20:02 | DI.VRAD_ITS ---
PROCEDURE INFORMATION: Exam: XR Left Calcaneus Exam date and time: 03/10/2023 7:07 PM Age: 77 years old Clinical indication: Pain; Heel; Left; Patient HX: Wound not healing TECHNIQUE: Imaging protocol: Radiologic exam of the left calcaneus. Views: 2 or more views. COMPARISON: CT ABD AORTA CTA W RUNOFF 02/04/2023 4:13 PM FINDINGS: Bones/joints: Osseous alignment is normal. No acute fracture. No significant arthritic change. Soft tissues: Normal. Vasculature: Small-vessel arterial calcification is noted about the foot and ankle. IMPRESSION: No acute abnormality Dictated and Authenticated by: David Eckert MD. Ordering:AARON Garcia MD
[2023-03-10 20:12] VITALS: BP 134/78; PULSE 89; RESP 16; TEMP 36; O2SAT 98
[2023-03-10 23:43] VITALS: BP 146/87; PULSE 74; RESP 16; TEMP 36; O2SAT 97
[2023-03-11 02:57] VITALS: PULSE 72
[2023-03-11 03:57] VITALS: BP 163/85; PULSE 74; RESP 16; TEMP 36; O2SAT 97
[2023-03-11] MEDS: metroNIDAZOLE 500 MG/100 ML BAG 100 MG IVPB ×3 (04:48→19:45)
[2023-03-11] MEDS: Insulin Aspart 300 UNITS/3 ML PEN SC ×3 (07:56→17:35)
[2023-03-11] MEDS: Aspirin E.C. 81 MG TABEC PO (07:57)
[2023-03-11 08:10] LABS: Abs Immature Grans 0.02 10^3/uL (0.0-0.06); Absolute Basophil Count 0.01 10^3/uL (0.0-0.2); Absolute Lymphocyte Count 0.56 10^3/uL (1.2-3.4); Absolute Monocyte Count 0.09 10^3/uL (0.1-0.8); Absolute Neutrophil Count 3.12 10^3/uL (1.2-6.7); Basophils % 0.2; Eosinophils % 7.3; HCT 31.5 % (40.0-50.0); HGB 10.1 g/dL (13.5-17.5); Immature Grans % 0.5; Lactate 1.4 mmol/L (0.6-1.4); Lymphocytes % 13.7; MCH 33.2 pg (27.0-33.0); MCHC 32.1 % (32.0-36.0); MCV 104 fL (80-95); Monocytes % 2.2; Neutrophils % 76.1; Platelet Count 131 10^3/uL (130-400); RBC 3.04 10^6/uL (4.36-5.78); RDW-SD 61.3 fL
[2023-03-11 08:24] LABS: Anion Gap 7.4 mmol/L (3-11); CO2 25.6 mmol/L (21.0-32.0); CREATININE 2.4 mg/dL (0.70-1.30); Chloride 120 mmol/L (98-107); Estimated GFR 26.78 (mL/min/1.73m2); Glucose 187 mg/dL (74-106); Sodium 153 mmol/L (136-145)
[2023-03-11 08:27] LABS: BUN 80 mg/dL (7-18)
[2023-03-11 09:26] VITALS: BP 148/84; PULSE 84; RESP 17; TEMP 36.6; O2SAT 98
[2023-03-11] MEDS: Normal Saline Flush 10 ML SYR IVP ×2 (10:27→13:01)
--- NOTE | 2023-03-11 11:09 | PDOC.CMPRO ---
Date of service: 03/11/23 Time of Service: 11:09 Care Management Progress Note Progress Note Text Progress Note Text: S/O: Alvarez was resting when CM attempted to meet with him. Per report, he is being treated with IV antibiotics for septic shock. He has repeat blood cultures pending. He has a diabetic foot ulcer, which has a wound vac placed on it, per [facility] recommendations. CM will continue to follow. A: Alvarez is a 77 year old male admitted to [facility] on 03/07/23 for septic shock. P: Anticipate Alvarez will return to [facility] when medically cleared. He will follow up with the facility provider and plan of care and transport via facility w/c van. CM will follow and assess for discharge needs.
[2023-03-11] MEDS: cefTRIAXone 2 GM/50 ML BAG IVPB (12:17)
--- NOTE | 2023-03-11 12:24 | PGE_ITS ---
Date of Service Date of service: 03/11/23 Time of Service: 12:24 Assessment and Plan Assessment and plan (1) Fungemia: Status: Acute Assessment and plan: 1 blood culture tube positive for TALIB ALBICANS. Started on micafungin day 2 with repeat blood cultures pending. Echocardiogram his lactic acid continues to trend down he has been afebrile normal white count (2) Septic shock: Status: Acute Assessment and plan: suspected due to UTI secondary to chronic indwelling catheter and now with outlet obstruction started on vancomycin, ceftriaxone and flagyl day 5 stable off vanco. urine culture unrevealing and concern for contamination responded to fluid resuscitation with lactate trending downward but not normalized, give another liter of lactated Ringer's today (3) Bladder outlet obstruction: Status: Acute Assessment and plan: urology consulted and frank catheter replaced. (was embedded in prostate) monitor urinary output closely (4) Acute kidney injury: Status: Acute Assessment and plan: likely d/t bladder outlet obstruction, which is now resolved. monitor kidney function closely, avoid nephrotoxic drug and renal dose as needed. Adjustments made by pharmacy. Metformin continues to be on hold will check fena score to see if ATN also contributing to ongoing (5) PAD (peripheral artery disease): Status: Acute Assessment and plan: recent revascularization at [facility] (6) Diabetic foot ulcer: Status: Acute Assessment and plan: followed by podiatry continue wound vac per [facility] discharge instructions. (7) Type 2 diabetes mellitus: Status: Chronic Assessment and plan: Continue diabetic diet with sliding scale coverage as needed Will hold metformin in setting of acute kidney injury Last hemoglobin A1c 7.2 in October 2022 (8) Dementia: Status: Chronic Assessment and plan: At baseline (9) Discharge planning issues: Status: Acute Assessment and plan: DVT prophylaxis we will use heparin in setting of acute kidney injury Anticipate discharge back to [facility] and rehab once medically stable Discussed with Dr. Da Silva Subjective Subjective Patient reports: no new complaints, tolerating liquids well, tolerating a regular diet and afebrile; denies shortness of breath Interval history since last seen: Patient continues to remain at what appears to be his baseline. Frank draining concentrated dark Exam Const General: cooperative and comfortable Nutritional Appearance: overweight Orientation: alert, awake and confused [facility] Head: normal to inspection, normocephalic and atraumatic Face and sinus: normal facial exam and face symmetric Eyes General: appearance normal, both eyes and all related structures (EOM intact, PERRLA) Neck Neck: normal visual inspection and full ROM Resp Effort & Inspection: normal respiratory effort and no respiratory distress Cardio Rate: regular rate Rhythm: regular rhythm GI Palpation: soft Skin Lesions: lesion noted (left heel, wound vac intact.) Other: old healed surgical incision on left knee, denies pain to movement of left knee. Neuro General: patient alert and patient awake Cognition: abnormal cognition Objective Last Vital Signs Temp 36.6 C 03/11/23 09:26 Pulse 84 03/11/23 09:26 Resp 17 03/11/23 09:26 BP 148/84 H 03/11/23 09:26 Pulse Ox 98 03/11/23 09:26 Laboratory Results - last 24 hr 03/11/23 07:55 WBC 4.10 L RBC 3.04 L Hgb 10.1 L Hct 31.5 L MCV 104 H MCH 33.2 H MCHC 32.1 RDW 16.0 H Plt Count 131 MPV 11.0 Immature Gran % 0.5 Neutrophils % 76.1 Lymphocytes % 13.7 Monocytes % 2.2 Eosinophils % 7.3 Basophils % 0.2 Nucleated RBC % 0.0 Absolute Neutrophils 3.12 Absolute Lymphocytes 0.56 L Absolute Monocytes 0.09 L Absolute Eosinophils 0.30 Absolute Basophils 0.01 VBG Lactate 1.4 Sodium 153 H Potassium 4.0 Chloride 120 H Carbon Dioxide 25.6 Anion Gap 7.4 BUN 80 H Creatinine 2.4 H D Est GFR (CKD-EPI 2020) 26.78 Glucose 187 H Calcium 9.0 Time Spent with Patient Time Spent with Patient: 25-34 minutes Time was spent: preparing to see the patient(eg.review tests), obtaining and/or reviewing separately otained hiistory, ordering medications,tests, procedures, referring, communicating with other health progressive care unit registered nurse and care coordination
[2023-03-11] MEDS: Lactated Ringers 1,000 ML 80 ML IV (13:01)
[2023-03-11 15:21] VITALS: BP 149/82; PULSE 87; RESP 22; TEMP 37.1; O2SAT 97
[2023-03-12 00:17] VITALS: BP 149/85; PULSE 68; RESP 18; TEMP 36; O2SAT 97
[2023-03-12] MEDS: Normal Saline Flush 10 ML SYR IVP (04:09)
[2023-03-12] MEDS: metroNIDAZOLE 500 MG/100 ML BAG 100 MG IVPB (04:10)
[2023-03-12 06:53] LABS: Abs Immature Grans 0.02 10^3/uL (0.0-0.06); Absolute Basophil Count 0.01 10^3/uL (0.0-0.2); Absolute Eosinophil Count 0.33 10^3/uL (0.0-0.7); Absolute Lymphocyte Count 0.59 10^3/uL (1.2-3.4); Absolute Monocyte Count 0.09 10^3/uL (0.1-0.8); Absolute Neutrophil Count 2.87 10^3/uL (1.2-6.7); Basophils % 0.3; Eosinophils % 8.4; HCT 31.6 % (40.0-50.0); HGB 10.2 g/dL (13.5-17.5); Immature Grans % 0.5; Lymphocytes % 15.1; MCH 33.7 pg (27.0-33.0); MCHC 32.3 % (32.0-36.0); MCV 104 fL (80-95); MPV 11.1 fL (8.0-11.0); Monocytes % 2.3; Neutrophils % 73.4; Platelet Count 114 10^3/uL (130-400); RBC 3.03 10^6/uL (4.36-5.78); RDW 15.9 % (11.8-14.1); RDW-SD 60.5 fL; WBC 3.91 10^3/uL (4.4-10.8)
[2023-03-12 07:09] LABS: BUN 54 mg/dL (7-18); CREATININE 1.7 mg/dL (0.70-1.30); Chloride 122 mmol/L (98-107); Glucose 183 mg/dL (74-106); Potassium 3.6 mmol/L (3.5-5.1)
[2023-03-12 07:14] LABS: Sodium 157 mmol/L (136-145)
[2023-03-12 08:18] VITALS: BP 141/66; PULSE 70; RESP 19; TEMP 36; O2SAT 98
[2023-03-12] MEDS: DEXTROSE 5%-WATER 1,000 ML 75 ML IV (08:27)
[2023-03-12] MEDS: Insulin Aspart 300 UNITS/3 ML PEN SC ×3 (09:10→17:35)
--- NOTE | 2023-03-12 10:25 | ANES.PREOP_ITS ---
General Info Date of Service Date Performed: 03/12/23 Height: 5 ft 10 in Weight: 94.648 kg Body Mass Index (BMI): 29.9 Surgical Procedure: Operation Date: 03/12/23 11:55 Proposed Procedure Side Surgeon p Excisional Wound Debridement of Heel, Possible Bone Debridement Left Radha Kowalski DPM Meds Allergies and Home Medications Allergies Allergy/AdvReac Type Severity Reaction Status Date / Time No Known Allergies Allergy Verified 03/03/23 10:00 Home Medication Medication Instructions Recorded atorvastatin 40 mg tablet 40 mg PO QHS 11/07/21 dextrose 40 % oral gel (Glucose 15 g PO Q15M PRN 11/07/21 Gel) glucagon 1 mg injection kit See Rx Instructions IM .COMPLEX 11/07/21 magnesium hydroxide 400 mg/5 mL 30 ml PO DAILY PRN 11/07/21 oral suspension multivitamin 1 tab PO DAILY 11/07/21 sodium phosphates 19 gram-7 118 ml TN ONCE PRN 11/07/21 gram/197 mL enema (Fleet Enema Extra) nitroglycerin 0.4 mg sublingual 0.4 mg sublingual PRN PRN 11/17/22 tablet cefepime 2 gram solution for 2 g IV Q8H 02/09/23 injection aspirin 81 mg tablet,delayed 81 mg PO DAILY 03/03/23 release bisacodyl 10 mg rectal suppository 10 mg TN DAILY PRN 03/03/23 cetirizine 10 mg capsule (All Day 10 mg PO DAILY PRN 03/03/23 Allergy (cetirizine)) levofloxacin 750 mg tablet 750 mg PO DAILY 03/03/23 metformin 1,000 mg tablet 500 mg PO BIDWMEAL 03/03/23 oxycodone 10 mg tablet,crush 10 mg PO BID PRN ischemic leg 03/03/23 resistant,extended release 12 hr pain, heel wound (OxyContin) oxycodone 5 mg capsule 5 mg PO Q12H PRN leg pain, before 03/03/23 dressing changes pantoprazole 40 mg granules 40 mg PO DAILY for allergy 03/03/23 delayed-release for susp in packet (Protonix) prednisone 10 mg tablet 10 mg PO DAILY psoriasis flare 03/03/23 Current Visit Medications: Current Medications Generic Name Dose Route Start Last Admin Trade Name Freq PRN Reason Stop Dose Admin Aspirin 81 mg 03/08/23 08:30 03/12/23 08:34 Aspirin E.C. 81 Mg Tabec PO Not Given DAILY [facility] Atorvastatin Calcium 40 mg 03/07/23 20:00 03/07/23 19:46 Atorvastatin 40 Mg Tab PO 40 mg QPM JOHN Administration Dextrose 0 gm 03/07/23 21:15 Glucose Oral Gel 15 Gm/37.5 Gm Tube PO DIRECTED PRN Dextrose/Water 0 gm 03/07/23 21:15 Dextrose 50%-Water 25 Gm/50 Ml Syr IVP DIRECTED PRN Hydroxyzine HCl 10 mg 03/09/23 11:58 03/10/23 08:58 Hydroxyzine Hcl 10 Mg Tab PO 10 mg QID PRN PRN Administration Ceftriaxone Sodium/Dextrose 2 gm in 50 mls @ 100 mls/hr 03/08/23 12:00 03/11/23 12:17 Rocephin IVPB 100 mls/hr Q24H JOHN Administration Metronidazole 500 mg in 100 mls @ 100 mls/hr 03/07/23 20:00 03/12/23 04:10 Flagyl IVPB 100 mls/hr Q8H [facility] Administration Micafungin Sodium 100 mg/ 100 mls @ 100 mls/hr 03/10/23 10:00 03/12/23 04:22 Sodium Chloride IVPB Infused Q24H JOHN Infusion Dextrose/Water 1,000 mls @ 75 mls/hr 03/12/23 08:00 03/12/23 08:27 IV 75 mls/hr INFUSION JOHN Administration IV Miscellaneous Supplies 1 each 03/07/23 12:15 Iv Access IV DIRECTED [facility] Insulin Aspart 0 units 03/08/23 08:00 03/12/23 09:10 Insulin Aspart 300 Units/3 Ml Pen SC 1 units 0800,1200,1700 [facility] Administration Protocol Magnesium Hydroxide 30 ml 03/07/23 16:46 03/10/23 08:58 Milk Of Magnesia 30 Ml Cup PO 30 ml DAILY PRN PRN Administration Oxycodone HCl 5 mg 03/07/23 17:34 03/08/23 16:02 Oxycodone 5 Mg Tab PO 5 mg Q8H PRN PRN Administration Sodium Chloride 0 ml 03/08/23 12:01 03/12/23 04:09 Normal Saline Flush 10 Ml Syr IVP 30 ml PRN PRN Administration PFSH Active Problems Active Problems: Problem Status Onset Code Fungemia B49 Ulcer of left foot with fat layer exposed L97.522 Bladder outlet obstruction N32.0 Sepsis A41.9 Acute renal failure N17.9 Hydronephrosis N13.30 Acute kidney injury N17.9 Bladder outlet obstruction N32.0 Septic shock A41.9, R65.21 Tibial artery occlusion, 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 Osteomyelitis of left foot M86.9 S/P angioplasty Z98.62 PAD (peripheral artery disease) I73.9 Unstageable pressure ulcer of left heel L89.620 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 Wet gangrene I96 Discharge planning issues Z02.9 DVT prophylaxis Z29.9 Diabetic foot ulcer E11.621, L97.509 Cellulitis of left lower limb L03.116 Weight loss R63.4 UTI (urinary tract infection) N39.0 Stroke I63.9 Dementia F03.90 Nonspecific paroxysmal spell R40.4 Brain TIA G45.9 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 Type 2 diabetes mellitus E11.9 Medical History Medical History Middle cerebral artery stenosis Anemia, mild Tachy-sara syndrome Ambulatory dysfunction E coli infection Memory changes Tinea corporis Mobility impaired Rash Sepsis secondary to UTI Dizziness and giddiness BPH (benign prostatic hyperplasia) GERD (gastroesophageal reflux disease) Neuropathy Obesity HLD (hyperlipidemia) CHF (congestive heart failure) Urinary incontinence Psoriasis Diabetes Hyperglycemia Hypertension CAD (coronary artery disease) Hypercholesteremia Surgical History Surgical History H/O hernia repair S/P appendectomy S/P knee replacement Hx of CABG H/O surgical procedure a. Aortic valve replacement 04/2013 b. left THR 10/04/2013 c. Left TKR 6-7 years ago S/P AVR (aortic valve replacement) 04/2013 Tobacco Smoking/Tobacco Use Status: Former Tobacco Use Alcohol Alcohol Intake: never Substance Use Substance use: Never Substance use type: does not use Vital Signs and Lab Results Vital Signs Most Recent Vital Signs in EMR: Most Recent Vital Signs Temp Pulse Resp BP Pulse Ox 36.0 C L 70 19 141/66 H 98 03/12/23 08:18 03/12/23 08:18 03/12/23 08:18 03/12/23 08:18 03/12/23 08:18 Point of Care Results Point of Care Results: Finger Stick Blood Glucose 175 03/12/23 09:10 Lab Results 03/12/23 06:30 03/12/23 06:30 Blood Type / Crossmatch: 2 No Data to Display Complete Blood Count: 2 White Blood Count 3.91 10^3/uL (4.4-10.8) L 03/12/23 06:30 Red Blood Count 3.03 10^6/uL (4.36-5.78) L 03/12/23 06:30 Hemoglobin 10.2 g/dL (13.5-17.5) L 03/12/23 06:30 Hematocrit 31.6 % (40.0-50.0) L 03/12/23 06:30 Platelet Count 114 10^3/uL (130-400) L 03/12/23 06:30 Venous Blood Lactate 1.4 mmol/L (0.6-1.4) 03/11/23 07:55 Complete Metabolic Panel: 2 Sodium 155 mmol/L (136-145) H 03/12/23 11:45 Potassium 3.6 mmol/L (3.5-5.1) 03/12/23 06:30 Chloride 122 mmol/L (98-107) H 03/12/23 06:30 Carbon Dioxide 27.0 mmol/L (21.0-32.0) 03/12/23 06:30 BUN 54 mg/dL (7-18) H 03/12/23 06:30 Creatinine 1.7 mg/dL (0.70-1.30) H 03/12/23 06:30 Est GFR (CKD-EPI 2020) 40.50 (mL/min/1.73m2) 03/12/23 06:30 Calcium 9.0 mg/dL (8.5-10.1) 03/12/23 06:30 Albumin 2.3 g/dL (3.4-5.0) L 03/09/23 06:32 Glucose 183 mg/dL (74-106) H 03/12/23 06:30 C-Reactive Protein 0.73 mg/dL (0.0-0.3) H 02/27/23 19:10 Liver Function Panel: 2 Alanine Aminotransferase (ALT/SGPT) 13 U/L (16-63) L 03/09/23 0 6:32 Aspartate Amino Transf (AST/SGOT) 29 U/L (15-37) 03/09/23 06:32 Coagulation Panel: 2 No Data to Display Cardiac Panel: 2 Creatine Kinase 32 U/L (39-308) L 03/08/23 Arterial Blood Gas: 2 No Data to Display Venous Blood Gas: 2 Venous Blood pH 7.33 (7.31-7.41) 03/07/23 12:20 Venous Blood Partial Pressure O2 35 mmHg 03/07/23 12:20 Venous Blood Partial Pressure CO2 43 mmHg (41-51) 03/07/23 12:2 0 Venous Blood Oxygen Saturation 61 % 03/07/23 12:20 Venous Blood HCO3 23 mmol/L (23-28) 03/07/23 12:20 Venous Blood Base Excess -3 mmol/L (-2-3) L 03/07/23 12:20 Venous Blood Total Carbon Dioxide 21 mmol/L (24-29) L 03/07/23 12:20 Pancreas Panel: 2 No Data to Display Thyroid Panel: 2 No Data to Display Infectious Disease: 2 Coronavirus (COVID-19)(PCR) Negative (Negative) 03/07/23 12:20 Coronavirus 2019 Source Nasal/Nares 03/07/23 12:20 Blood Cultures: 2 No Data to Display Toxicology Panel: 2 No Data to Display Imaging and Studies Imaging and Studies Study information below may be from another EMR and interpreted by another provider. Please see original notes in EMR for more complete details. EKG Summary: 03/07/2023: Exam: Resting ECG Reason for Exam: Hypotension Patient Location: E HR:118 bpm ECG Measurements Heart Rate 118 AXIS TN 140 P 54 QRSd 77 QRS 51 QT 314 T43 QTc 441 Conclusion Sinus tachycardia...rate> 99 Probable left atrial enlargement...P >50mS, <-0.10mV V1 sinus tachycardia, normal axis, normal intervals, non ischemic I have reviewed and I agree with the emergency room physician's ECG interpretation. Electronically signed by: <Electronically signed by Cherri Ervin M.D. in [place]> 03/10/23 0840 Cosigned by: Echocardiogram Summary: 03/10/2023: Conclusion Concentric left ventricular hypertrophy. Ejection fraction is 60%. Wall motion is normal there is stage I diastolic dysfunction which is normal for age Normal right ventricular size and systolic function Both atria are normal in size There is a bioprosthetic aortic valve present with normal gradients, trace regurgitation Normal mitral valve with mild regurgitation Normal tricuspid valve with trace regurgitation Mildly dilated ascending aorta Within the limits of the study no valvular vegetations were identified Anesthesia Assessment and Plan Anesthesia History Personal History: No History of Anesthesia Complications Family History: No Family History of Anesthesia Complications Exercise Tolerance Exercise Tolerance: Metabolic Equivalents<4 Cardiac & Pulmonary Exam Cardiac Exam: Normal S1/S2 Heart Sounds Pulmonary Exam: Clear Bilateral Breath Sounds (Diminished) Implantable Cardiac Device Does patient have a Pacemaker or an ICD?: No Airway Exam Known Difficult Airway: No Mallampati Class: 3 Mouth Opening: Normal (> 3cm) Thyromental Distance: Greater than 3 cm Neck Range of Motion: Full ROM and Limited ROM Neck Circumference: Normal Teeth Condition: Removable Dentures/Plates Upper and Removable Dentures/Plates Lower ASA Classification ASA Score: ASA 3 Emergency Case?: No NPO Status NPO Status: NPO Clears >2 hours, Solids >8 hours Anesthesia Plan Resuscitation Status: DNR Maintained Throughout Perioperative Period Anesthesia Technique: Primary Nerve Block Airway Planned: Natural Airway Pain Management: Surgeon and patient request nerve block Monitors Used: Standard Monitors
[2023-03-12] MEDS: Bupivacaine 0.5% Pres-Free 30 ML VIAL (11:39)
[2023-03-12 11:59] LABS: Sodium 155 mmol/L (136-145)
--- NOTE | 2023-03-12 12:27 | CMPROGNOTE_ITS ---
Date of service: 03/12/23 Time of Service: 12:27 Care Management Progress Note Progress Note Text Progress Note Text: S/O: Alvarez was in the OR today when CM attempted to visit with him. He was having his wound debrided by podiatry. Per report, the provider is consulting [facility] for IV antibiotic recommendations. CM will continue to follow. A: Alvarez is a 77 year old male admitted to [facility] on 03/07/23 for septic shock. P: Anticipate Alvarez will return to [facility] when medically cleared. He will follow up with the facility provider and plan of care and transport via facility w/c van. CM will follow and assess for discharge needs.
--- NOTE | 2023-03-12 12:56 | ANES.NERVE_ITS ---
Nerve Block Single Injection Procedure Date and Time Date Performed: 03/12/23 Procedure Start: 12:57 Location Where Procedure Performed Procedure Location: PACU Reason Performed: Postoperative Analgesia Requesting Provider: Radha Kowalski Timeout Performed Timeout Performed: Yes Monitoring Used ECG, Blood Pressure and SpO2 Sterility Sterility: Hand Hygiene, Surgical Cap, Surgical Mask, Sterile Gloves, Sterile Gown and Chlorhexidine Sedation Given During Procedure Sedation Given (Indicate Dose Given): No Sedation given Patient Mental Status Patient Mental Status: Awake Nerve Block 1st Nerve Block: Laterality: Left Block Type: Popliteal Sciatic Ultrasound Image Saved?: Yes Needle / Catheter Used: 100mm SonoPlex II Local Anesthetic Bolus (Indicate Dose Given): Lidocaine used for local i nfiltration of skin, Injected in 3-5ml increments after negative blood aspiration and Bupivacaine 0.5% Dose:: 20 ml Additives (Indicate Dose Given): Normal Saline Ultrasound: Sterile probe cover and gel used Nerve Stimulator: Supplement to Ultrasound use and No twitch or pa rasthesia noted < 0.5 mA Paresthesia: None Procedure Tolerated: No Complications and Patient tolerated well Procedure Outcome: Successful Performed By: Slim Burrell
[2023-03-12] MEDS: Lidocaine 1% Pres-Free 30 ML VIAL (13:00)
[2023-03-12 13:07] VITALS: BMI 29.9
--- NOTE | 2023-03-12 13:10 | W.ANESNERVE ---
Nerve Block Single Injection Procedure Date and Time Date Performed: 03/12/23 Procedure Start: 12:28 Location Where Procedure Performed Procedure Location: PACU Reason Performed: Other (Primary Anesthetic) Requesting Provider: Radha Kowalski Timeout Performed Timeout Performed: Yes Monitoring Used ECG, Blood Pressure and SpO2 Sterility Sterility: Hand Hygiene, Surgical Cap, Surgical Mask, Sterile Gloves and Chlorhexidine Sedation Given During Procedure Sedation Given (Indicate Dose Given): No Sedation given Patient Mental Status Patient Mental Status: Awake Nerve Block 1st Nerve Block: Laterality: Left Block Type: Adductor Canal Ultrasound Image Saved?: Yes Needle / Catheter Used: 100mm SonoPlex II Local Anesthetic Bolus (Indicate Dose Given): Bupivacaine 0.5% Dose:: 10mL Additives (Indicate Dose Given): None Ultrasound: Sterile probe cover and gel used Nerve Stimulator: Supplement to Ultrasound use and No twitch or parasthesia noted < 0.5 mA Paresthesia: None Procedure Tolerated: No Complications Procedure Outcome: Successful Performed By: Peyton Vega
[2023-03-12] MEDS: Cellulose,Oxidized 4X8 1 PACKET MC (13:25)
[2023-03-12] MEDS: Thrombin 5,000 UNITS VIAL 5000 UNITS TP (13:25)
--- NOTE | 2023-03-12 14:02 | ROE_ITS ---
Date of service: 03/12/23 Time of Service: 13:00 Operative Note Operative Note DATE OF PROCEDURE: 03/12/23 PRE-OP DIAGNOSIS: Ulcer left heel with fat necrosis POST-OP DIAGNOSIS: same PROCEDURE: Versajet wound debridement, left heel. SURGEON: Radha Kowalski ANESTHESIA TYPE: Other (Popliteal and adductor canal block, left lower extremity) Refer to Anesthesia Record ESTIMATED BLOOD LOSS: 10 PATHOLOGY: none sent COMPLICATIONS: None Patient was transported to: floor Patient's condition: stable Indications: This is a 77 yo male patient with history of left heel ulcer with recent debridement here at [facility], revascularization at [facility] [place] with wound debridement, currently on wound VAC therapy with a full thickness ulcer with fat necrosis to nearly the level of the bone. I discussed the benefits of wound debridement with the patient and his today. I advised them removal of devitalized necrotic tissue is essential to allow the wound to heal and prevent further infection. I discussed the risks and benefits of the procedure in detail with Erin Farmer, the patient's who understood and agreed. She provided consent on the phone today. No guarantees or warrantees were made or implied today. Findings: Full thickness ulceration with fat necrosis, granular wound bed post debridement with healthy fat to the wound bed as well, healthy bleeding noted to the wound. There was bleeding noted. Surgicell was applied for hemostasis. Bleeding persisted. Thrombin was then applied topically. Once hemostasis was achieved, epifix wound graft x 2 were applied. Procedure Description: Patient was identified in pre-op holding. Consent form was signed and reviewed with Erin Farmer, the patient's who fully understood the procedure and associated risks. A popliteal and adductor block was administered with anesthesia. The left foot was then marked. Patient was then brought to the OR and kept in the hospital bed in supine position. The left lower extremity was then scrubbed, prepped and draped in the usual aseptic manner. Next, using a Versajet at #7 setting the wound was debrided of all nonviable tissue the setting was then increased to 10 for heavy necrotic fatty tissue upon debridement of all necrotic nonviable tissue, to healthy bleeding base the area was then inspected and measured. Measurements post debridement are 6.0 x 5.2 cm wide and 2.3 cm deep. There is a shallow area of the wound just plantarly. There was bleeding noted to the wound bed which did not stop with pressure application. Surgicel and pressure were then applied to the wound bed however bleeding persisted. Next, thrombin was applied to the wound which immediately achieved hemostasis. This area was then cleansed. EpiFix graft was then applied 2 sheets of the graft were applied measuring 4.0 x 2. This was then reinforced enforced with Adaptic, bolster type dressing with 4 x 4, Kerlix, Les wrap. The patient tolerated the procedure and block well with vital signs stable masses status intact to the left lower extremity. He was transferred to the floor. Patient is to keep the dressings clean dry and intact. I recommend elevation of the foot. The dressings are to be left intact for 1 week. At this time, the patient is nonambulatory and has pain with mobilization of his left lower extremity which makes wound debridement difficult for him. Patient is also currently anemic and has multiple other comorbidities further complicating and delaying healing of this wound. This poses risk for further infections and infection progressing to the calcaneus. I recommend consultation with Ortho for consideration of a below the knee amputation as this will likely be the least painful procedure going forward given the extent and depth of the wound and also offer the fastest recovery. . Extremities Extremities Details:
--- NOTE | 2023-03-12 15:04 | PGE_ITS ---
Date of Service Date of service: 03/12/23 Time of Service: 15:04 Assessment and Plan Assessment and plan (1) Fungemia: Status: Acute Assessment and plan: 1 blood culture tube positive for TALIB ALBICANS. Continue micafungin day 3 with repeat blood cultures pending. Echocardiogram Conclusion Concentric left ventricular hypertrophy. Ejection fraction is 60%. Wall motion is normal there is stage I diastolic dysfunction which is normal for age Normal right ventricular size and systolic function Both atria are normal in size There is a bioprosthetic aortic valve present with normal gradients, trace regurgitation Normal mitral valve with mild regurgitation Normal tricuspid valve with trace regurgitation Mildly dilated ascending aorta Within the limits of the study no valvular vegetations were identified his lactic acid has normalized, he has been afebrile normal white count (2) Septic shock: Status: Resolved Assessment and plan: was originally suspected due to UTI secondary to chronic indwelling catheter with outlet obstruction, urine cultures unremarkable and concern for contamination, he had been receiving vancomycin, ceftriaxone and flagyl day 6 and stable off vanco. responded to fluid resuscitation with lactate normalized now with positive blood culture for yeast--will continue micafungin. will discontinue ceftriaxone and flagyl and follow inflammatory markers (3) Bladder outlet obstruction: Status: Resolved Assessment and plan: urology consulted and frank catheter replaced. (was embedded in prostate) monitor urinary output closely (4) Acute kidney injury: Status: Acute Assessment and plan: likely d/t bladder outlet obstruction, which is now resolved. creatinine normalizing monitor kidney function closely, avoid nephrotoxic drug and renal dose as n eeded. Adjustments made by pharmacy. Metformin continues to be on hold fena score 2.39 (5) PAD (peripheral artery disease): Status: Acute Assessment and plan: recent revascularization at [facility] [place] (6) Chronic pruritus: Status: Acute Assessment and plan: started on atarax seems improved on this therapy. (7) Diabetic foot ulcer: Status: Acute Assessment and plan: followed by podiatry taken to the OR today by podiatry for debridement. wound vac is off. surgical dressing is clean dry and intact and to remain as such until podiatry returns next week. graft has been placed. (8) Type 2 diabetes mellitus: Status: Chronic Assessment and plan: Continue diabetic diet with sliding scale coverage as needed Will hold metformin in setting of acute kidney injury Last hemoglobin A1c 7.2 in October 2022 (9) Dementia: Status: Chronic Assessment and plan: At baseline (10) Discharge planning issues: Status: Acute Assessment and plan: DVT prophylaxis now TEDS and SCD's d/t hematuria with heparin being discontinued 2 days ago. Anticipate discharge back to [facility] and rehab once medically stable Discussed with Dr. Da Silva Objective Last Vital Signs Temp 36.0 C L 03/12/23 08:18 Pulse 70 03/12/23 08:18 Resp 19 03/12/23 08:18 BP 141/66 H 03/12/23 08:18 Pulse Ox 98 03/12/23 08:18 Laboratory Results - last 24 hr 03/12/23 03/12/23 06:30 11:45 WBC 3.91 L RBC 3.03 L Hgb 10.2 L Hct 31.6 L MCV 104 H MCH 33.7 H MCHC 32.3 RDW 15.9 H Plt Count 114 L MPV 11.1 H Immature Gran % 0.5 Neutrophils % 73.4 Lymphocytes % 15.1 Monocytes % 2.3 Eosinophils % 8.4 Basophils % 0.3 Nucleated RBC % 0.0 Absolute Neutrophils 2.87 Absolute Lymphocytes 0.59 L Absolute Monocytes 0.09 L Absolute Eosinophils 0.33 Absolute Basophils 0.01 Sodium 157 H* 155 H Potassium 3.6 Chloride 122 H Carbon Dioxide 27.0 Anion Gap 8.0 BUN 54 H Creatinine 1.7 H Est GFR (CKD-EPI 2020) 40.50 Glucose 183 H Calcium 9.0 Time Spent with Patient Time Spent with Patient: 35-49 minutes Time was spent: preparing to see the patient(eg.review tests), obtaining and/or reviewing separately otained hiistory, ordering medications,tests, procedures, referring, communicating with other health day care assistant, indepentently interpreting results and counseling the patient
[2023-03-12 15:25] VITALS: BP 133/78; PULSE 100; RESP 18; TEMP 36.8; O2SAT 99
[2023-03-12] MEDS: hydrOXYzine HCL 10 MG TAB PO (17:34)
[2023-03-12 18:12] LABS: Sodium 153 mmol/L (136-145)
[2023-03-12 22:59] VITALS: BP 131/95; PULSE 78; RESP 20; TEMP 36.3; O2SAT 97
[2023-03-13 00:23] LABS: Sodium 151 mmol/L (136-145)
[2023-03-13] MEDS: DEXTROSE 5%-WATER 1,000 ML 75 ML IV ×2 (02:06→16:12)
[2023-03-13 07:01] LABS: Abs Immature Grans 0.03 10^3/uL (0.0-0.06); Absolute Basophil Count 0.01 10^3/uL (0.0-0.2); Absolute Eosinophil Count 0.35 10^3/uL (0.0-0.7); Absolute Lymphocyte Count 0.76 10^3/uL (1.2-3.4); Absolute Monocyte Count 0.09 10^3/uL (0.1-0.8); Absolute Neutrophil Count 2.56 10^3/uL (1.2-6.7); Basophils % 0.3; Eosinophils % 9.2; HCT 29.2 % (40.0-50.0); HGB 9.4 g/dL (13.5-17.5); Immature Grans % 0.8; MCH 33.3 pg (27.0-33.0); MCHC 32.2 % (32.0-36.0); MCV 104 fL (80-95); MPV 10.7 fL (8.0-11.0); Monocytes % 2.4; Neutrophils % 67.3; Platelet Count 113 10^3/uL (130-400); RBC 2.82 10^6/uL (4.36-5.78); RDW 15.7 % (11.8-14.1); RDW-SD 59.1 fL
[2023-03-13 07:20] LABS: Anion Gap 6.4 mmol/L (3-11); BUN 42 mg/dL (7-18); C-Reactive Protein 3.05 mg/dL (0.0-0.3); CO2 27.6 mmol/L (21.0-32.0); CREATININE 1.5 mg/dL (0.70-1.30); Calcium 8.6 mg/dL (8.5-10.1); Chloride 118 mmol/L (98-107); Estimated GFR 47.06 (mL/min/1.73m2); Glucose 235 mg/dL (74-106); Magnesium 1.5 mg/dL (1.8-2.4); Potassium 3.2 mmol/L (3.5-5.1); Sodium 152 mmol/L (136-145)
[2023-03-13 07:46] LABS: ESR 61 mm/hr (0-20)
[2023-03-13 08:17] LABS: Procalcitonin < 0.1 ng/mL
[2023-03-13] MEDS: Aspirin E.C. 81 MG TABEC PO (08:35)
[2023-03-13] MEDS: Insulin Aspart 300 UNITS/3 ML PEN SC ×3 (08:35→17:00)
--- NOTE | 2023-03-13 09:15 | W.PM.PROGNOT ---
Date of Service Date of service: 03/13/23 Time of Service: 09:15 Assessment and Plan Assessment and plan (1) Fungemia: Status: Acute Assessment and plan: 1 blood culture tube positive for TALIB ALBICANS. Will Continue micafungin, on day 4 today; with repeat blood cultures pending. Echocardiogram Conclusion Concentric left ventricular hypertrophy. Ejection fraction is 60%. Wall motion is normal there is stage I diastolic dysfunction which is normal for age Normal right ventricular size and systolic function Both atria are normal in size There is a bioprosthetic aortic valve present with normal gradients, trace regurgitation Normal mitral valve with mild regurgitation Normal tricuspid valve with trace regurgitation Mildly dilated ascending aorta Within the limits of the study no valvular vegetations were identified his lactic acid has normalized on 03/11, he remains afebrile with a normal white count (2) Septic shock: Status: Resolved Assessment and plan: was originally suspected due to UTI secondary to chronic indwelling catheter with outlet obstruction, urine cultures unremarkable and concern for contamination, Vancomycin, ceftriaxone and flagyl completed . responded to fluid resuscitation with lactate normalized now with positive blood culture for yeast--will continue micafungin. follow inflammatory markers (3) Bladder outlet obstruction: Status: Resolved Assessment and plan: Urology consulted and frank catheter replaced. (was embedded in prostate) Will monitor urinary output closely (4) Acute kidney injury: Status: Acute Assessment and plan: likely d/t bladder outlet obstruction, which is now resolved. creatinine normalizing monitor kidney function closely, avoid nephrotoxic drug and renal dose as needed. Cr 1.5 Adjustments made by pharmacy on drug regimen Metformin continues to be on hold fena score wasearlier in the stay 2.39 (5) PAD (peripheral artery disease): Status: Acute Assessment and plan: [place] [facility] [place]6) Chronic pruritus: Status: Acute Assessment and plan: started on atarax seems improved on this therapy. No c/o pruritis today (7) Diabetic foot ulcer: Status: Acute Assessment and plan: followed by podiatry taken to the OR today by podiatry for debridement. wound vac remains off. surgical dressing is clean dry and intact and to remain as such until podiatry returns next week, no erythema around wound . graft has been placed. (8) Type 2 diabetes mellitus: Status: Chronic Assessment and plan: Gluc [id number] Will continue diabetic diet with sliding scale coverage as needed Will hold metformin in setting of acute kidney injury, considering restarting if Cr goes to baseline Last hemoglobin A1c 7.2 in October 2022 (9) Dementia: Status: Chronic Assessment and plan: At baseline (10) Discharge planning issues: Status: Acute Assessment and plan: DVT prophylaxis now TEDS and SCD's d/t hematuria with heparin being discontinued 2 days ago. Anticipate discharge back to [facility] and rehab once medically stable Discussed with Dr. Yee Subjective Subjective Patient reports: no new complaints, feels better, tolerating liquids well, tolerating a regular diet, voiding w/o difficulty, flatus and bowel movement; denies still having pain, diarrhea, vomiting, shortness of breath or fever Exam Narrative Exam Narrative: Constitutional The patient is lying in bed comfortable and cooperative during the interview. The patient is well groomed without acute distress and has average body habitus HENMT: Head is atraumatic, normocephalic, no lymphadenopathy. Facial structures with normal appearance Eyes: Well aligned, intact ROM Neck: Normal ROM, Neuro:alert and oriented to self, person. No neurological focal deficit Chest:Chest is symmetrical and normal appearance Resp: Normal respiratory pattern, speaks in full sentences, unlabored breathing, clear lung bilaterally but decreased basilar breath sounds Cardio: regular rhythm, S1, S2, no murmur, capillary refill<3 sec., bilateral radial and dorsalis pedis pulses are positive, palpable GI: Abdomen is not distended, soft and non tender : Negative Costovertebral angle tenderness, Back/spine/Pelvis: No back tenderness, normal alignment Integumentary: left foot wound dressing DCI, no erythema around the wound, no profuse drainage, granulation tissue seen on wound bed Extremities: strength 4/5 to bilateral lower and 5/5 to upper extremities Psych: RASS 0, congruent mood and normal affect. Objective Last Vital Signs Temp 36.3 C L 03/12/23 22:59 Pulse 78 03/12/23 22:59 Resp 20 03/12/23 22:59 BP 131/95 H 03/12/23 22:59 Pulse Ox 97 03/12/23 22:59 Laboratory Results - last 24 hr 03/12/23 03/12/23 03/13/23 11:45 17:58 00:05 WBC RBC Hgb Hct MCV MCH MCHC RDW Plt Count MPV Immature Gran % Neutrophils % Lymphocytes % Monocytes % Eosinophils % Basophils % Nucleated RBC % Absolute Neutrophils Absolute Lymphocytes Absolute Monocytes Absolute Eosinophils Absolute Basophils Sodium 155 H 153 H 151 H Potassium Chloride Carbon Dioxide Anion Gap BUN Creatinine Est GFR (CKD-EPI 2020) Glucose Calcium Magnesium C-Reactive Protein Procalcitonin 03/13/23 06:22 WBC 3.80 L RBC 2.82 L Hgb 9.4 L Hct 29.2 L MCV 104 H MCH 33.3 H MCHC 32.2 RDW 15.7 H Plt Count 113 L MPV 10.7 Immature Gran % 0.8 Neutrophils % 67.3 Lymphocytes % 20.0 Monocytes % 2.4 Eosinophils % 9.2 Basophils % 0.3 Nucleated RBC % 0.0 Absolute Neutrophils 2.56 Absolute Lymphocytes 0.76 L Absolute Monocytes 0.09 L Absolute Eosinophils 0.35 Absolute Basophils 0.01 Sodium 152 H Potassium 3.2 L Chloride 118 H Carbon Dioxide 27.6 Anion Gap 6.4 BUN 42 H Creatinine 1.5 H Est GFR (CKD-EPI 2020) 47.06 Glucose 235 H Calcium 8.6 Magnesium 1.5 L C-Reactive Protein 3.05 H Procalcitonin < 0.1 Time Spent with Patient Time Spent with Patient: >50 minutes Time was spent: preparing to see the patient(eg.review tests), ordering medications,tests, procedures, referring, communicating with other health critical care clinical nurse specialist, indepentently interpreting results, counseling the patient and care coordination
[2023-03-13 10:28] VITALS: BP 148/95; PULSE 82; RESP 18; TEMP 36.6; O2SAT 99
[2023-03-13 15:43] VITALS: BP 131/64; PULSE 61; RESP 18; TEMP 36.6; O2SAT 99
[2023-03-14 03:25] VITALS: BP 139/84; PULSE 67; RESP 18; TEMP 36.1; O2SAT 97
[2023-03-14 07:02] LABS: HCT 26.5 % (40.0-50.0); HGB 8.8 g/dL (13.5-17.5); MCH 33.6 pg (27.0-33.0); MCHC 33.2 % (32.0-36.0); MCV 101 fL (80-95); MPV 11.2 fL (8.0-11.0); Platelet Count 107 10^3/uL (130-400); RBC 2.62 10^6/uL (4.36-5.78); RDW 15.2 % (11.8-14.1); RDW-SD 56.5 fL; WBC 3.83 10^3/uL (4.4-10.8)
[2023-03-14 07:17] LABS: ESR 50 mm/hr (0-20)
[2023-03-14 07:27] LABS: Anion Gap 7.3 mmol/L (3-11); BUN 32 mg/dL (7-18); CO2 25.7 mmol/L (21.0-32.0); CREATININE 1.3 mg/dL (0.70-1.30); Calcium 8.1 mg/dL (8.5-10.1); Chloride 114 mmol/L (98-107); Estimated GFR 55.88 (mL/min/1.73m2); Glucose 166 mg/dL (74-106); Magnesium 1.3 mg/dL (1.8-2.4); Potassium 3.1 mmol/L (3.5-5.1); Sodium 147 mmol/L (136-145)
[2023-03-14 07:32] LABS: Bands % 1
[2023-03-14 07:33] LABS: Absolute Eosinophil Count 0.23 10^3/uL (0.0-0.7); Atypical Lymphocytes % 1; Diff Comment Manual Differential; RBC Morphology Normal
[2023-03-14 08:26] VITALS: BP 131/75; PULSE 65; RESP 18; TEMP 36.5; O2SAT 97
[2023-03-14] MEDS: DEXTROSE 5%-WATER 1,000 ML 75 ML IV (08:30)
[2023-03-14] MEDS: Aspirin E.C. 81 MG TABEC PO (08:30)
[2023-03-14] MEDS: Insulin Aspart 300 UNITS/3 ML PEN SC ×3 (08:31→17:13)
[2023-03-14] MEDS: Normal Saline Flush 10 ML SYR IVP (10:52)
[2023-03-14 12:33] LABS: Lab Add On Test DONE
[2023-03-14] MEDS: Potassium Chloride 10 MEQ CAPCR 40 MEQ PO ×2 (12:39→22:49)
[2023-03-14 13:10] LABS: Folate 9.2 ng/mL (8.6-20.0); Vitamin B12 325 pg/mL (193-986)
[2023-03-14] MEDS: MAGNESIUM SULFATE 4 GM/100 ML BAG IVPB (13:45)
--- NOTE | 2023-03-14 14:03 | W.PM.PROGNOT ---
Date of Service Date of service: 03/14/23 Time of Service: 14:03 Assessment and Plan Assessment and plan (1) Fungemia: Status: Acute Assessment and plan: 1 blood culture tube positive for TALIB ALBICANS. Will Continue micafungin, on day 5 today. repeat blood cultures from 03/11 were no growth x 2 sets. At this point he can be stepped down to Fluconazole 800 mg IV loading dose then 400 mg iv daily or po daily for total duration of 14 days from his negative cultures, i.e. through Mar.24 Echocardiogram Conclusion Concentric left ventricular hypertrophy. Ejection fraction is 60%. Wall motion is normal there is stage I diastolic dysfunction which is normal for age Normal right ventricular size and systolic function Both atria are normal in size There is a bioprosthetic aortic valve present with normal gradients, trace regurgitation Normal mitral valve with mild regurgitation Normal tricuspid valve with trace regurgitation Mildly dilated ascending aorta Within the limits of the study no valvular vegetations were identified his lactic acid has normalized on 03/11, he remains afebrile with a normal white count (2) Septic shock: Status: Resolved Assessment and plan: was originally suspected due to UTI secondary to chronic indwelling catheter with outlet obstruction, urine cultures unremarkable and concern for contamination, Vancomycin, ceftriaxone and flagyl completed . responded to fluid resuscitation with lactate normalized now with positive blood culture for yeast--will continue micafungin. follow inflammatory markers Can step down to Fluconazole at this point. (3) Bladder outlet obstruction: Status: Resolved Assessment and plan: Urology consulted and frank catheter replaced. (was embedded in prostate) Will monitor urinary output closely (4) Acute kidney injury: Status: Acute Assessment and plan: likely d/t bladder outlet obstruction, which is now resolved. creatinine normalizing monitor kidney function closely, avoid nephrotoxic drug and renal dose as needed. Cr 1.3 Adjustments made by pharmacy on drug regimen Metformin continues to be on hold fena score was 2.39 earlier in the stay (5) PAD (peripheral artery disease): Status: Acute Assessment and plan: [place] recent [place] [facility] [place] (6) Chronic pruritus: Status: Acute Assessment and plan: Continue atarax as needed, seems improved on this therapy. still no c/o pruritis today (7) Diabetic foot ulcer: Status: Acute Assessment and plan: followed by podiatry; graft has been placed taken to the OR today by podiatry for debridement. wound vac remains off. surgical dressing is clean dry and intact and to remain as such until podiatry returns next week, no erythema . Qualifiers: Diabetic foot ulcer location: heel Diabetes mellitus type: type 2 Laterality: left Non-pressure ulcer stage: with fat layer exposed Qualified Code(s): E11.621 - Type 2 diabetes mellitus with foot ulcer; L97.422 - Non-pressure chronic ulcer of left heel and midfoot with fat layer exposed (8) Type 2 diabetes mellitus: Status: Chronic Assessment and plan: Gluc 166 this AM Will continue diabetic diet, AC and HS blood glucose monitoring with sliding scale coverage as needed Will hold metformin in setting of acute kidney injury, considering restarting if Cr goes to baseline Last hemoglobin A1c 7.2 in October 2022 Qualifiers: Diabetes mellitus long-term insulin use: with long-term use Diabetes mellitus complication status: with neurologic complications Diabetes mellitus complication detail: with polyneuropathy Qualified Code(s): E11.42 - Type 2 diabetes mellitus with diabetic polyneuropathy; Z79.4 - terminal manager (current) use of insulin (9) Dementia: Status: Chronic Assessment and plan: At baseline Qualifiers: Dementia type: vascular dementia Dementia severity: mild Dementia behavioral or psychological symptom: without behavioral, psychotic, or mood disturbance or anxiety Qualified Code(s): F01.A0 - Vascular dementia, mild, without behavioral disturbance, psychotic disturbance, mood disturbance, and anxiety (10) Discharge planning issues: Status: Acute Assessment and plan: DVT prophylaxis now TEDS and SCD's d/t hematuria with heparin being discontinued 2 days ago. Anticipate discharge back to [facility] and rehab once medically stable Discussed with Dr. Yee Subjective Subjective Patient reports: no new complaints, feels better, tolerating liquids well, tolerating a regular diet, voiding w/o difficulty, flatus and bowel movement; denies still having pain, diarrhea, blood in stool, nausea, vomiting, shortness of breath, afebrile or fever Exam Narrative Exam Narrative: Constitutional The patient is lying in bed comfortable and cooperative during the interview. The patient is without acute distress and has average body habitus HENMT: Head is , normocephalic. Facial structures with normal appearance Eyes: Well aligned, intact ROM Neck: Normal ROM, Neuro:alert and oriented to self, person, place. No neurological focal deficit Chest:Chest is symmetrical and normal appearance Resp: Normal respiratory pattern, speaks in full sentences, unlabored breathing, clear lung bilaterally but decreased basilar breath sounds Cardio: regular rhythm, S1, S2, no murmur, capillary refill<3 sec., bilateral radial and dorsalis pedis pulses are positive, palpable GI: Abdomen is not distended, soft and non tender : Negative Costovertebral angle tenderness, frank in place Back/spine/Pelvis: No back tenderness, normal alignment Integumentary: left foot wound dressing DCI, no erythema around the wound, no profuse drainage Extremities: strength 4/5 to bilateral lower and 5/5 to upper extremities Psych: RASS 0, congruent mood and normal affect. Objective Last Vital Signs Temp 36.5 C 03/14/23 08:26 Pulse 65 03/14/23 08:26 Resp 18 03/14/23 08:26 BP 131/75 03/14/23 08:26 Pulse Ox 97 03/14/23 08:26 Laboratory Results - last 24 hr 03/14/23 03/14/23 06:13 Unknown WBC 3.83 L RBC 2.62 L Hgb 8.8 L Hct 26.5 L MCV 101 H MCH 33.6 H MCHC 33.2 RDW 15.2 H Plt Count 107 L MPV 11.2 H Immature Gran % 0.0 Neutrophils % 72.0 Band Neutrophils % 1 Lymphocytes % 20.0 Atypical Lymphs % 1 Monocytes % 0.0 Eosinophils % 6.0 Basophils % 0.0 Nucleated RBC % 0.0 Absolute Neutrophils 2.80 Absolute Lymphocytes 0.80 L Absolute Monocytes 0.00 L Absolute Eosinophils 0.23 Absolute Basophils 0.00 RBC Morphology Normal ESR 50 H Sodium 147 H Potassium 3.1 L Chloride 114 H Carbon Dioxide 25.7 Anion Gap 7.3 BUN 32 H Creatinine 1.3 Est GFR (CKD-EPI 2020) 55.88 Glucose 166 H Calcium 8.1 L Magnesium 1.3 L Vitamin B12 325 Folate 9.2 Add-On Test Request DONE Time Spent with Patient Time Spent with Patient: >50 minutes Time was spent: preparing to see the patient(eg.review tests), ordering medications,tests, procedures, referring, communicating with other health customer care consultant, indepentently interpreting results, counseling the patient and care coordination
[2023-03-14 15:18] VITALS: BP 147/80; PULSE 66; RESP 18; TEMP 36.6; O2SAT 97
[2023-03-14 23:03] VITALS: BP 117/79; PULSE 66; RESP 18; TEMP 36.8; O2SAT 98
[2023-03-15 06:58] LABS: Abs Immature Grans 0.01 10^3/uL (0.0-0.06); Absolute Basophil Count 0.01 10^3/uL (0.0-0.2); Absolute Eosinophil Count 0.22 10^3/uL (0.0-0.7); Absolute Lymphocyte Count 0.76 10^3/uL (1.2-3.4); Absolute Monocyte Count 0.11 10^3/uL (0.1-0.8); Absolute Neutrophil Count 2.77 10^3/uL (1.2-6.7); Basophils % 0.3; Eosinophils % 5.7; HCT 27.2 % (40.0-50.0); HGB 8.9 g/dL (13.5-17.5); Immature Grans % 0.3; Lymphocytes % 19.6; MCHC 32.7 % (32.0-36.0); MCV 101 fL (80-95); MPV 11.1 fL (8.0-11.0); Monocytes % 2.8; Neutrophils % 71.3; Platelet Count 109 10^3/uL (130-400); RDW 15.1 % (11.8-14.1); RDW-SD 56.3 fL; WBC 3.88 10^3/uL (4.4-10.8)
[2023-03-15 07:05] LABS: Anion Gap 5.4 mmol/L (3-11); BUN 26 mg/dL (7-18); CO2 25.6 mmol/L (21.0-32.0); CREATININE 1.3 mg/dL (0.70-1.30); Chloride 113 mmol/L (98-107); Estimated GFR 55.88 (mL/min/1.73m2); Glucose 177 mg/dL (74-106); Magnesium 2.1 mg/dL (1.8-2.4); Potassium 4.1 mmol/L (3.5-5.1); Sodium 144 mmol/L (136-145)
[2023-03-15 08:01] LABS: Diff Comment Agrees w/ Instrument; Hypochromasia 1+
[2023-03-15] MEDS: Insulin Aspart 300 UNITS/3 ML PEN SC ×5 (08:10→17:42)
[2023-03-15 08:15] VITALS: BP 157/73; PULSE 65; RESP 18; TEMP 36.5; O2SAT 96
[2023-03-15 08:53] LABS: Lab Add On Test DONE
[2023-03-15 09:08] LABS: Reticulocyte 0.7 % (0.5-2.4)
[2023-03-15 09:13] LABS: Iron 52 ug/dL (65-175); Total Iron Binding Capacity 122 ug/dL (250-450); Transferrin Sat 43 % (20-55)
[2023-03-15 09:27] LABS: Ferritin 488 ng/mL (26-388)
[2023-03-15 10:00] LABS: LDH 336 U/L (85-227)
--- NOTE | 2023-03-15 10:06 | PGE_ITS ---
Date of Service Date of service: 03/15/23 Time of Service: 10:06 Assessment and Plan Assessment and plan (1) Fungemia: Status: Acute Assessment and plan: Fungemia with 1 blood culture tube positive for melani albicans; micafungin IV completed and no growth on the 2 sets of repeated blood cultures from 03/11. Fluconazole 800 mg IV loading dose to start on 03/16 then patient will have 400 mg on 03/17 either oral or IV fluconazole . The patient will have to continue Fluconazole 400 mg PO daily when discharged until 03/24/2023; which is 14 days after his negative blood cultures. LFT's ordered, none seen in the chart. Remains asymptomatic for infection afebrile , no leukocytosis, stable BP Echocardiogram EF 60%, no valvular vegetation Conclusion Concentric left ventricular hypertrophy. Ejection fraction is 60%. Wall motion is normal there is stage I diastolic dysfunction which is normal for age Normal right ventricular size and systolic function Both atria are normal in size There is a bioprosthetic aortic valve present with normal gradients, trace regurgitation Normal mitral valve with mild regurgitation Normal tricuspid valve with trace regurgitation Mildly dilated ascending aorta t (2) Septic shock: Status: Resolved Assessment and plan: Initial cause thought to be UTI from chronic indwelling catheter with outlet obstruction. Urology intervened to remove catheter that was embedded in prostate with minimal residual hematuria. Vancomycin, ceftriaxone and flagyl completed. Urine cultures were negative and concerning for contamination. Normal lactate after fluid resuscitation earlier in the stay Blood cultures grew yeast then melani albiicans: Started on micafungin and now transitioning to fluconazole follow inflammatory markers: Esr 50 on 03/14 from 61, CRP 3.05 . (3) Bladder outlet obstruction: Status: Resolved Assessment and plan: Urology consulted and frank catheter replaced. (was embedded in prostate) U/O remains adequate, urine is discolored brown with sediment, UA ordered Considering urology consult as an outpatient management (4) Acute kidney injury: Status: Acute Assessment and plan: Normalized Cr at 1.3, will continue to monitor Renal dosing of Rx as per pharmacy Metformin continues to be on hold fena score was 2.39 earlier in the stay (5) PAD (peripheral artery disease): Status: Acute Assessment and plan: Had a recent procedure for revascular[place] [facility] [place] will continue to monitor (6) Chronic pruritus: Status: Acute Assessment and plan: Minimal c/o pruritis today, healing scratch rios noticed. Continue atarax PRN (7) Diabetic foot ulcer: Status: Acute Assessment and plan: followed by podiatry in on coming week , graft has been placed during surgical intervention for debridment in OR by podiatry. No further wound vac Dressing is clean dry and intact and to remain as such until podiatry returns next week, no erythema to LLE. . 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 (8) Type 2 diabetes mellitus: Status: Chronic Assessment and plan: Gluc 177 this AM Will continue diabetic diet, AC and HS blood glucose monitoring with sliding scale coverage as needed Metformin on hold re: ANASTACIA , Cr remains at 1.3, might considring restarting upon discharge on friday Qualifiers: Diabetes mellitus complication detail: with polyneuropathy Diabetes mellitus complication status: with neurologic complications Diabetes mellitus watermelon harvesting supervisor insulin use: with watermelon harvesting supervisor use Qualified Code(s): E11.42 - Type 2 diabetes mellitus with diabetic polyneuropathy; Z79.4 - penitentiary (current) use of insulin (9) Anemia: Status: Chronic Assessment and plan: The patient presented with a H&H of 10.8/38 on 03/06/23 and today H&H is 8.9/27. MCV was >100, wich is most likely indicative of megaloblastic and or hypochromic anemia Vit B12 ordered on 03/14 was 325 folate ordered on 03/14 was 9.2 Iron defiency anemia is most likely ruled out Transferrin 43% TIBC 122 Ferritin 488 Despite the Fe at 52 This could also be indicative of anemia of chronic disease or inflammatory anemia. The patient recieved D5W for hypernatremia and dillution could also play a role in the laboratory results. The patient does not display sign of neurologic issues such as neuropathies but due to the lower limit value of B12 will supplement while awaiting MMA results; also considering supplementation with oral folate replacement while awaiting for homecystein to be back (10) Dementia: Status: Chronic Assessment and plan: Remains pleasant, some confusion Qualifiers: Dementia behavioral or psychological symptom: without behavioral, psychotic, or mood disturbance or anxiety Dementia severity: mild Dementia type: vascular dementia Qualified Code(s): F01.A0 - Vascular dementia, mild, without behavioral disturbance, psychotic disturbance, mood disturbance, and anxiety (11) Discharge planning issues: Status: Acute Assessment and plan: DVT prophylaxis now TEDS and SCD's, d/t hematuria pharmacologic prophylaxis was stopped Anticipate discharge back to [facility] and rehab once medically stable most likely on friday Discussed with Dr. Yee Subjective Subjective Patient reports: no new complaints, feels better (but tired), tolerating liquids well, tolerating a regular diet, voiding w/o difficulty, flatus and bowel movement; denies still having pain, diarrhea, blood in stool, nausea, vomiting, shortness of breath, afebrile or fever Exam Narrative Exam Narrative: Constitutional The patient is lying in bed comfortable The patient is without acute distress and has average body habitus HENMT: Head is normocephalic. Facial structures with normal appearance Eyes: Well aligned, intact ROM Neck: Normal ROM, Neuro:alert and oriented to self, person, place. No neurological focal deficit Chest:Chest is symmetrical and normal appearance Resp: Normal respiratory pattern, unlabored breathing, clear lung bilaterally Cardio: regular rhythm, S1, S2, bilateral radial and dorsalis pedis pulses are positive, palpable GI: Abdomen is not distended, soft and non tender : frank in place Back/spine/Pelvis: No back tenderness, normal alignment Integumentary: left foot wound dressing DCI, no profuse drainage Extremities: strength 4/5 to bilateral lower and 5/5 to upper extremities Psych: RASS 0, congruent mood and normal affect. Objective Last Vital Signs Temp 36.5 C 03/15/23 08:15 Pulse 65 03/15/23 08:15 Resp 18 03/15/23 08:15 BP 157/73 H 03/15/23 08:15 Pulse Ox 96 03/15/23 08:15 Laboratory Results - last 24 hr 03/14/23 03/14/23 03/15/23 06:13 Unknown 06:17 WBC 3.88 L RBC 2.70 L Hgb 8.9 L Hct 27.2 L MCV 101 H MCH 33.0 MCHC 32.7 RDW 15.1 H Plt Count 109 L MPV 11.1 H Reticulocyte % (Auto) 0.7 Immature Gran % 0.3 Neutrophils % 71.3 Lymphocytes % 19.6 Monocytes % 2.8 Eosinophils % 5.7 Basophils % 0.3 Nucleated RBC % 0.0 Absolute Neutrophils 2.77 Absolute Lymphocytes 0.76 L Absolute Monocytes 0.11 Absolute Eosinophils 0.22 Absolute Basophils 0.01 RBC Morphology See Below Hypochromasia 1+ Sodium 144 Potassium 4.1 D Chloride 113 H Carbon Dioxide 25.6 Anion Gap 5.4 BUN 26 H Creatinine 1.3 Est GFR (CKD-EPI 2020) 55.88 Glucose 177 H Calcium 8.0 L Magnesium 2.1 Iron 52 L TIBC 122 L Transferrin % Sat 43 Ferritin 488 H Lactate Dehydrogenase 336 H Vitamin B12 325 Folate 9.2 Add-On Test Request DONE DONE Time Spent with Patient Time Spent with Patient: >50 minutes Time was spent: preparing to see the patient(eg.review tests), ordering medications,tests, procedures, referring, communicating with other health intensive care medicine specialist, indepentently interpreting results, counseling the patient and care coordination
[2023-03-15] MEDS: Potassium Chloride 10 MEQ CAPCR 40 MEQ PO ×2 (11:50→20:14)
[2023-03-15] MEDS: Aspirin E.C. 81 MG TABEC PO (11:50)
[2023-03-15] MEDS: Normal Saline Flush 10 ML SYR IVP (11:51)
[2023-03-15 15:48] VITALS: BP 126/67; PULSE 67; RESP 18; TEMP 36.2; O2SAT 98
[2023-03-15 22:03] VITALS: BP 143/79; PULSE 59; RESP 18; TEMP 37; O2SAT 98
[2023-03-16 06:54] LABS: Bilirubin Negative (Negative); Blood Moderate (Negative); Clarity Cloudy (Clear); Glucose Negative (Negative); Ketones Negative (Negative); Leukocyte Esterase Small (Negative); Nitrite Negative (Negative); Specific Gravity 1.025 (1.005-1.025); Urobilinogen 0.2 mg/dL (Up to 0.2)
[2023-03-16 07:02] LABS: Bacteria Few HPF (Negative); C & S Indicated? Yes; Casts Negative LPF (Negative); Crystals Negative HPF (Negative); Epithelial Cells Negative HPF (Negative); Mucus Negative (Negative); RBC >50 HPF (0-2)
[2023-03-16 07:19] LABS: Abs Immature Grans 0.02 10^3/uL (0.0-0.06); HCT 28.9 % (40.0-50.0); HGB 9.5 g/dL (13.5-17.5); MCH 33.2 pg (27.0-33.0); MCHC 32.9 % (32.0-36.0); MCV 101 fL (80-95); MPV 10.9 fL (8.0-11.0); Platelet Count 122 10^3/uL (130-400); RBC 2.86 10^6/uL (4.36-5.78); RDW 15.1 % (11.8-14.1); RDW-SD 56.3 fL
[2023-03-16 07:30] LABS: ESR 59 mm/hr (0-20)
[2023-03-16 07:32] LABS: Anion Gap 9.6 mmol/L (3-11); BUN 20 mg/dL (7-18); CO2 23.4 mmol/L (21.0-32.0); CREATININE 1.2 mg/dL (0.70-1.30); Calcium 8.3 mg/dL (8.5-10.1); Chloride 112 mmol/L (98-107); Estimated GFR 61.52 (mL/min/1.73m2); Glucose 169 mg/dL (74-106); Potassium 4.4 mmol/L (3.5-5.1); Sodium 145 mmol/L (136-145)
[2023-03-16 07:37] LABS: ALT 31 U/L (16-63); AST 34 U/L (15-37); Albumin 2.3 g/dL (3.4-5.0); Alkaline Phosphatase 64 U/L (46-116); Bilirubin, Direct 0.1 mg/dL (0.0-0.2); Bilirubin, Total 0.4 mg/dL (0.2-1.0); C-Reactive Protein 1.71 mg/dL (0.0-0.3); Total Protein 6.9 g/dL (6.4-8.2)
[2023-03-16 07:49] LABS: Absolute Eosinophil Count 0.04 10^3/uL (0.0-0.7); Absolute Lymphocyte Count 0.69 10^3/uL (1.2-3.4); Absolute Monocyte Count 0.09 10^3/uL (0.1-0.8); Absolute Neutrophil Count 3.35 10^3/uL (1.2-6.7); Bands % 2; Diff Comment Manual Differential; RBC Morphology Normal
[2023-03-16] MEDS: Potassium Chloride 10 MEQ CAPCR 40 MEQ PO ×2 (07:58→20:57)
[2023-03-16] MEDS: Pantoprazole 40 MG TABCR PO (07:59)
[2023-03-16] MEDS: Aspirin E.C. 81 MG TABEC PO (07:59)
[2023-03-16] MEDS: Normal Saline Flush 10 ML SYR IVP ×2 (08:00→10:36)
[2023-03-16] MEDS: Cyanocobalamin 500 MCG TAB 1000 MCG PO (08:00)
[2023-03-16 08:07] VITALS: BP 133/75; PULSE 71; RESP 18; TEMP 36.2; O2SAT 99
[2023-03-16] MEDS: Insulin Aspart 300 UNITS/3 ML PEN SC ×5 (08:08→17:26)
--- NOTE | 2023-03-16 10:42 | PGE_ITS ---
Date of Service Date of service: 03/16/23 Time of Service: 10:42 Assessment and Plan Assessment and plan (1) Fungemia: Status: Acute Assessment and plan: Fungemia with 1 blood culture tube positive for melani albicans; no growth on the 2 sets of repeated blood cultures from 03/11. Fluconazole start on 03/16 after first being on micofungin, patient will to continue Fluconazole 400 mg PO daily when discharged until 03/24/2023; which is 14 days after his negative blood cultures. Remains asymptomatic for infection afebrile , no leukocytosis, stable BP Echocardiogram EF 60%, no valvular vegetation Conclusion Concentric left ventricular hypertrophy. Ejection fraction is 60%. Wall motion is normal there is stage I diastolic dysfunction which is normal for age Normal right ventricular size and systolic function Both atria are normal in size There is a bioprosthetic aortic valve present with normal gradients, trace regurgitation Normal mitral valve with mild regurgitation Normal tricuspid valve with trace regurgitation Mildly dilated ascending aorta t (2) Acute kidney injury: Status: Acute Assessment and plan: Normalized Cr at 1.3, will continue to monitor Renal dosing of Rx as per pharmacy Metformin continues to be on hold fena score was 2.39 (3) PAD (peripheral artery disease): Status: Acute Assessment and plan: Had a recent procedure for [place] [facility] [place] will continue to monitor (4) Chronic pruritus: Status: Acute Assessment and plan: improved on atarax Continue atarax PRN (5) Diabetic foot ulcer: Status: Acute Assessment and plan: followed by podiatry , pod #4 Versajet wound debridement, left heel. graft placed Dressing is clean dry and intact and to remain as such until podiatry returns next week, no erythema to LLE. 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 (6) Type 2 diabetes mellitus: Status: Chronic Assessment and plan: Will continue diabetic diet, AC and HS blood glucose monitoring with sliding scale coverage as needed Metformin on hold re: ANASTACIA , Cr remains at 1.3, might considering restarting upon discharge on friday Qualifiers: Diabetes mellitus complication detail: with polyneuropathy Diabetes mellitus complication status: with neurologic complications Diabetes mellitus supervisor intermediates insulin use: with supervisor intermediates use Qualified Code(s): E11.42 - Type 2 diabetes mellitus with diabetic polyneuropathy; Z79.4 - watermaster (current) use of insulin (7) Anemia: Status: Chronic Assessment and plan: The patient presented with a H&H of 10.8/38 on 03/06/23 and today H&H is 8.9/27. MCV was >100, wich is most likely indicative of megaloblastic and or hypochromic anemia Vit B12 ordered on 03/14 was 325 folate ordered on 03/14 was 9.2 Iron defiency anemia is most likely ruled out Transferrin 43% TIBC 122 Ferritin 488 Despite the Fe at 52 This could also be indicative of anemia of chronic disease or inflammatory anemia. The patient recieved D5W for hypernatremia and dillution could also play a role in the laboratory results. The patient does not display sign of neurologic issues such as neuropathies but due to the lower limit value of B12 will supplement while awaiting MMA results; also considering supplementation with oral folate replacement while awaiting for homecystein to be back (8) Dementia: Status: Chronic Assessment and plan: Remains pleasant, some confusion Qualifiers: Dementia behavioral or psychological symptom: without behavioral, psychotic, or mood disturbance or anxiety Dementia severity: mild Dementia type: vascular dementia Qualified Code(s): F01.A0 - Vascular dementia, mild, without behavioral disturbance, psychotic disturbance, mood disturbance, and anxiety (9) Discharge planning issues: Status: Acute Assessment and plan: DVT prophylaxis now TEDS and SCD's, d/t hematuria pharmacologic prophylaxis was stopped Anticipate discharge back to [facility] and rehab once medically stable most likely on friday Discussed with Dr. Yee Subjective Subjective Patient reports: no new complaints, tolerating liquids well, tolerating a regular diet and afebrile; denies shortness of breath Exam Const General: cooperative and comfortable Nutritional Appearance: overweight Orientation: alert, awake and confused [facility] Head: normal to inspection, normocephalic and atraumatic Face and sinus: normal facial exam and face symmetric Eyes General: appearance normal, both eyes and all related structures (EOM intact, PERRLA) Neck Neck: normal visual inspection and full ROM Resp Effort & Inspection: normal respiratory effort and no respiratory distress Cardio Rate: regular rate Rhythm: regular rhythm GI Palpation: soft Skin Lesions: other (surgical dressing clean dry and intact) Rashes: no rashes Neuro General: patient alert and patient awake Cognition: abnormal cognition Objective Last Vital Signs Temp 36.2 C L 03/16/23 08:07 Pulse 71 03/16/23 08:07 Resp 18 03/16/23 08:07 BP 133/75 03/16/23 08:07 Pulse Ox 99 03/16/23 08:07 Laboratory Results - last 24 hr 03/16/23 03/16/23 05:35 06:45 WBC 4.30 L RBC 2.86 L Hgb 9.5 L Hct 28.9 L MCV 101 H MCH 33.2 H MCHC 32.9 RDW 15.1 H Plt Count 122 L MPV 10.9 Immature Gran % See Differential Neutrophils % 76.0 Band Neutrophils % 2 Lymphocytes % 16.0 Monocytes % 2.0 Eosinophils % 1.0 Basophils % 0.0 Nucleated RBC % 0.0 Absolute Neutrophils 3.35 Absolute Lymphocytes 0.69 L Absolute Monocytes 0.09 L Absolute Eosinophils 0.04 Absolute Basophils 0.00 RBC Morphology Normal ESR 59 H Sodium 145 Potassium 4.4 Chloride 112 H Carbon Dioxide 23.4 Anion Gap 9.6 BUN 20 H Creatinine 1.2 Est GFR (CKD-EPI 2020) 61.52 Glucose 169 H Calcium 8.3 L Total Bilirubin 0.4 Conjugated Bilirubin 0.1 AST 34 ALT 31 Alkaline Phosphatase 64 C-Reactive Protein 1.71 H Total Protein 6.9 Albumin 2.3 L Urine Color Yellow Urine Clarity Cloudy Urine pH 5.0 Ur Specific [place] 1.025 Urine Protein 30 H Urine Ketones Negative Urine Blood Moderate H Urine Nitrite Negative Urine Bilirubin Negative Urine Urobilinogen 0.2 Ur Leukocyte Esterase Small H Urine RBC >50 H Urine WBC 5-10 Ur Epithelial Cells Negative Urine Crystals Negative Urine Bacteria Few Urine Casts Negative Urine Mucus Negative Ur Culture Indicated? Yes Urine Glucose Negative Time Spent with Patient Time Spent with Patient: 35-49 minutes Time was spent: preparing to see the patient(eg.review tests), obtaining and/or reviewing separately otained hiistory, ordering medications,tests, procedures, referring, communicating with other health grounds caretaker and indepentently interpreting results
[2023-03-16 15:26] VITALS: BP 160/71; PULSE 72; RESP 18; TEMP 36.8; O2SAT 99
[2023-03-16 21:09] VITALS: BP 145/65; PULSE 63; RESP 16; TEMP 36.6; O2SAT 99
[2023-03-16 23:24] VITALS: BP 147/82; PULSE 66; RESP 18; TEMP 36.6; O2SAT 94
[2023-03-17] MEDS: Pantoprazole 40 MG TABCR PO (07:51)
[2023-03-17 08:08] VITALS: BP 130/82; PULSE 78; RESP 16; TEMP 36.5; O2SAT 95
--- NOTE | 2023-03-17 08:23 | W.ANESPOSTOP ---
Postoperative Evaluation Date, Time and Location Date Performed: 03/12/23 Time Performed: 13:50 Patient Location: Med/Surg Vital Signs Most Recent Imported Vital Signs: Most Recent Vital Signs Temp Pulse Resp BP Pulse Ox 36.5 C 78 16 130/82 95 03/17/23 08:08 03/17/23 08:08 03/17/23 08:08 03/17/23 08:08 03/17/23 08:08 Pain Score Most Recent Pain Score: Most Recent Pain Score Pain Level [Right Foot] 0 03/15/23 05:03 Pain Level 0 03/17/23 08:08 Assessment Mental Status: Awake (Alert & Oriented to Patient Baseline) Airway and Respiratory Function: Patent airway with normal (patient baseline) respiratory exam Cardiovascular Function: Hemodynamically Stable Hydration Status: Adequately Hydrated Nausea & Vomiting: No Nausea or Vomiting Pain: Pain is tolerable per patient Peripheral Nerve Block: Regional nerve block not resolved at time of post operative discharge Postoperative Comments:: Late entry, preformed at time of return to med/surg floor. Patient stable and reports given.
[2023-03-17] MEDS: Insulin Aspart 300 UNITS/3 ML PEN SC ×4 (08:49→12:45)
[2023-03-17] MEDS: Potassium Chloride 10 MEQ CAPCR 40 MEQ PO (08:49)
[2023-03-17] MEDS: Normal Saline Flush 10 ML SYR IVP (08:50)
[2023-03-17] MEDS: Cyanocobalamin 500 MCG TAB 1000 MCG PO (08:50)
[2023-03-17] MEDS: Aspirin E.C. 81 MG TABEC PO (08:50)
--- NOTE | 2023-03-17 11:10 | DSE_ITS ---
Date of service: 03/17/23 Time of Service: 11:10 DS: Diagnosis Discharge Diagnosis (1) Septic shock: Status: Resolved Asessment and Plan: severe, initially suspected due to UTI secondary to chronic indwelling catheter with bladder outlet obstruction received vancomycin, ceftriaxone and flagyl for 5 days, weaned off and remained stable. urine culture unrevealing and concern for contamination responded to fluid resuscitation with lactate trending downward blood cultures ultimately grew melani albicans in one bottle, urine later grew yeast also. was treated with micafungin and downstepped to fluconazole after ID consultation. has been medically stable and will discharge home on oral fluconazole to complete a 14 day course from negative culture results. his echo showed no evidence of valvular vegetation. (2) Bladder outlet obstruction: Status: Resolved Asessment and Plan: present on admission and secondary to frank catheter embedded in prostate, emergency urology consultation and frank catheter replaced in the ED. (3) Fungemia: Status: Acute Asessment and Plan: Fungemia with 1 blood culture tube positive for melani albicans; no growth on the 2 sets of repeated blood cultures from 03/11. Fluconazole start on 03/16 after first being on micofungin, patient will to continue Fluconazole 400 mg PO daily when discharged until 03/24/2023; which is 14 days after his negative blood cultures. Remains asymptomatic for infection afebrile , no leukocytosis, stable BP Echocardiogram EF 60%, no valvular vegetation Conclusion Concentric left ventricular hypertrophy. Ejection fraction is 60%. Wall motion is normal there is stage I diastolic dysfunction which is normal for age Normal right ventricular size and systolic function Both atria are normal in size There is a bioprosthetic aortic valve present with normal gradients, trace regurgitation Normal mitral valve with mild regurgitation Normal tricuspid valve with trace regurgitation Mildly dilated ascending aorta (4) Acute kidney injury: Status: Resolved Asessment and Plan: due to post obstructive (bladder outlet obstruction with hydro bilaterally) and ATN (fena score was 2.39) now Normalized Cr at 1.2, avoid nephrotoxic drugs and encourage fluids to stay well hydrated, monitor urinary output and frank patency Renal dosing of prescriptions as per pharmacy Metformin was on hold but to be continued at discharge. continue routine monitoring of renal function outpatient as per outpatient care team (5) PAD (peripheral artery disease): Status: Acute Asessment and Plan: underwent arteriogram at [facility]. (6) Chronic pruritus: Status: Acute Asessment and Plan: responded well to atarax, can continue at discharge per outpatient team (7) Diabetic foot ulcer: Status: Acute Asessment and Plan: followed by podiatry, pod #5 Versajet wound debridement, left heel. graft placed Dressing instructions per podiatry wound with no surrounding erythema to LLE, no purulent drainage. consider orthopedic consultation for BKA as he is non ambulatory and this is expected to have delayed healing. (8) Type 2 diabetes mellitus: Status: Chronic Asessment and Plan: Metformin was on hold secondary to acute kidney injury, creatinine now at baseline at 1.2 can resume at discharge and monitor outpatient. last hemoglobin A1C was in October 2022 at 7.2 (9) Anemia: Status: Chronic Asessment and Plan: The patient presented with a H&H of 10.8/38 on 03/06/23 and now H&H is 9.5/28.9. MCV was >100, which is most likely indicative of megaloblastic and or hypochromic anemia Vit B12 ordered on 03/14 was 325 folate ordered on 03/14 was 9.2 Iron defiency anemia is most likely ruled out Transferrin 43% TIBC 122 Ferritin 488 Despite the Fe at 52 This could also be indicative of anemia of chronic disease or inflammatory anemia. The patient received D5W for hypernatremia and dillution could also play a role in the laboratory results. The patient does not display sign of neurologic issues such as neuropathies but due to the lower limit value of B12 will supplement while awaiting MMA results; also considering supplementation with oral folate replacement while awaiting for homecystein to be back (10) Dementia: Status: Chronic Asessment and Plan: at baseline. Discharge Plan Disposition Patient Disposition: Custodial Facility(SNF) Condition: Stable Discharge Details Reason For Visit: septic shock Admit Date/Time: 03/07/23 15:00 Admit Provider: Richar Truong Attending Provider: Richar Truong Primary Care Provider: Sony Simmons Home Meds and New Rx's Prescriptions: New hydroxyzine HCl 10 mg Tablet 10 mg PO QID PRN PRNQty: 0 0RF fluconazole 200 mg tablet 400 mg PO DAILY Qty: 14 0RF cyanocobalamin (vitamin B-12) [Vitamin B-12] 500 mcg Tablet 1,000 mcg PO DAILY Qty: 30 0RF Continued multivitamin Tablet 1 tab PO DAILY dextrose [Glucose Gel] 40 % gel 15 g PO Q15M PRN Patient Comments: not on med list Rx Instructions: until symptoms of low blood sugar are controlled magnesium hydroxide 400 mg/5 mL suspension 30 ml PO DAILY PRN Patient Comments: not on med list bisacodyl 10 mg suppository 10 mg ND DAILY PRN aspirin 81 mg tablet,delayed release (DR/EC) 81 mg PO DAILY All Day Allergy (cetirizine) 10 mg capsule 10 mg PO DAILY PRN metformin 1,000 mg tablet 500 mg PO BIDWMEAL Hold Instructions: outpatient team oxycodone 5 mg capsule 5 mg PO Q12H PRN (Reason: leg pain, before dressing changes) oxycodone [OxyContin] 10 mg tablet,oral only,ext.rel.12 hr 10 mg PO BID PRN (Reason: ischemic leg pain, heel wound) Rx Instructions: x 14 days pantoprazole [Protonix] [address] for susp in packet 40 mg PO DAILY Rx Instructions: x 30 days (start 02/24/23) EO nitroglycerin 0.4 mg Tablet, Sublingual 0.4 mg sublingual PRN PRN Discontinued Fleet Enema Extra 19-7 gram/197 mL enema 118 ml ND ONCE PRN Patient Comments: not on med list glucagon 1 mg kit See Rx Instructions IM .COMPLEX Patient Comments: not on med list Rx Instructions: intramuscularly; atorvastatin 40 mg tablet 40 mg PO QHS Patient Comments: not on med list levofloxacin 750 mg tablet 750 mg PO DAILY Rx Instructions: x 34 days; ends 03/26/23 prednisone 10 mg tablet 10 mg PO DAILY Rx Instructions: x 14 days (02/21/23) EO cefepime 2 gram recon soln 2 g IV Q8H Discharge Instructions Instructions: Sepsis (DC), Diabetic Foot Ulcers (DC), Catheter-associated Urinary Tract Infection (DC) Additional Instructions: dressing care instruction: Keep dressing clean dry and intact, will be changed at outpatient follow up appointment with podiatry. non weight bearing to that leg. continue fluconazole through March 24 which is 2 weeks from negative blood culture Stand Alone Forms: Nursing Discharge Form Referrals: Sony Simmons [Primary Care Provider] - (Follow up per Health & Rehab ) Amita Valentine MD [ [facility] STAFF PHYSICIAN] - 03/31/23 10:30 am Radha Kowalski DPM [[facility] STAFF PHYSICIAN] - 03/25/23 11:30 am () Activity:: Activity as Tolerated Equipment/Supplies:: No Equipment Needed Diet:: Carb Counting Discharge Orders Discharge Orders: Discharge Order (Routine); Ordered 03/17/23 Ordered By: Maribell Das DS: Summary Time Spent with Patient providing and/or coordinating discharge services: Greater than 30 minutes Status at Discharge Functional status at discharge: bed bound Overall status at discharge: patient is back to baseline Mental Status: other Speech and Movement: speech and movement normal Mood: other Affect: normal affect Exam Psych Mental Status: other Speech and Movement: speech and movement normal Mood: other Affect: normal affect DS: Data Vitals/I&O Vitals and I&O: Vital Signs Temperature 36.5 C 03/17/23 08:08 Temperature Source Tympanic 03/17/23 08:08 Pulse 78 03/17/23 08:08 Pulse Rhythm Irregular 03/17/23 09:25 Pulse 89 03/07/23 14:37 Respiratory Rate 16 03/17/23 08:08 Respiratory Effort Normal, Non-Labored 03/17/23 09:25 Respiratory Depth Normal 03/17/23 09:25 Respiratory Pattern Normal 03/17/23 09:25 Blood Pressure 130/82 03/17/23 08:08 Blood Pressure Mean 92 03/07/23 14:37 Pulse Oximetry 95 03/17/23 08:08 Oxygen Delivery Method Room Air 03/17/23 08:08 Oxygen Flow Rate 0 03/17/23 08:08 Pain Level 0 03/17/23 09:23 Comment RN informed of BP 03/13/23 10:28 Intake & Output 03/16/23 03/16/23 03/17/23 11:59 23:59 11:59 Intake Total 0 / 560 560 / 560 Output Total 750 / 1525 775 / 1525 850 / 850 Balance -750 / -965 -215 / -965 -850 / -850 Intake: IV 0 / 0 Oral 560 / 560 Output: Urine 750 / 1525 775 / 1525 850 / 850 Other: Urine Color Dark Hodan Dark Hodan Light Hodan Urine Appearance Cloudy Cloudy Sediment Stool Size Large Moderate Moderate Stool Characteristics Mucoid Soft Liquid Green Formed Green Data Completed and Pending Labs on day of discharge: Preliminary micro results at discharge 03/16/23 05:35 Urine Culture - Preliminary Urine - Reflex from [facility]a YEAST PFSH All Active Problems (Updated 03/17/23 @ 11:44 by Maribell Das NP) Anemia (Chronic) Chronic pruritus (Acute) Fungemia (Acute) Ulcer of left foot with fat layer exposed (Acute) Sepsis (Acute) Acute renal failure (Acute) Hydronephrosis (Acute) Tibial artery occlusion, left (Acute) Osteomyelitis of left foot (Acute) S/P angioplasty (Acute) 02/12/23: LLE, posterior tibial artery, balloon angioplasty ([id number]) of TP trunk. PAD (peripheral artery disease) (Acute) Unstageable pressure ulcer of left heel (Acute) Diabetic wet gangrene of the foot (Acute) Wet gangrene (Acute) Discharge planning issues (Acute) DVT prophylaxis (Acute) Diabetic foot ulcer (Acute) Cellulitis of left lower limb (Acute) Weight loss (Acute) UTI (urinary tract infection) (Acute) Stroke (Chronic) Dementia (Chronic) Nonspecific paroxysmal spell (Acute) Brain TIA (Acute) Stenosis of right middle cerebral artery (Acute) MRSA colonization (Acute) Type 2 diabetes mellitus (Chronic) Medical History Middle cerebral artery stenosis Anemia, mild Tachy-sara syndrome Ambulatory dysfunction E coli infection Memory changes Tinea corporis Mobility impaired Rash Sepsis secondary to UTI Dizziness and giddiness BPH (benign prostatic hyperplasia) GERD (gastroesophageal reflux disease) Neuropathy Obesity HLD (hyperlipidemia) CHF (congestive heart failure) Urinary incontinence Psoriasis Diabetes Hyperglycemia Hypertension CAD (coronary artery disease) Hypercholesteremia Surgical History H/O hernia repair S/P appendectomy S/P knee replacement Hx of CABG H/O surgical procedure a. Aortic valve replacement 04/2013 b. left THR 10/04/2013 c. Left TKR 6-7 years ago S/P AVR (aortic valve replacement) 04/2013 Social History Smoking/Tobacco Use Status: Former Tobacco Use Smoking risk assessment performed?: Yes Alcohol Intake: never Drug use: Never Substance use type: does not use Housing: senior living Do you feel safe at home: Yes Do you feel safe in your relationship?: Yes Additional Social history: Current resident of [facility] and [facility] Time Spent with Patient Time Spent with Patient: 45-69 minutes Time was spent: preparing to see the patient(eg.review tests), obtaining and/or reviewing separately otained hiistory, ordering medications,tests, procedures, referring, communicating with other health critical care registered nurse, indepentently interpreting results and care coordination
--- NOTE | 2023-03-17 12:50 | W.PM.PROGNOT ---
Date of Service Date of service: 03/17/23 Time of Service: 12:00 Assessment and Plan Assessment and plan (1) Unstageable pressure ulcer of left heel: Status: Acute (2) Dementia: Status: Chronic Qualifiers: Dementia type: vascular dementia Dementia severity: mild Dementia behavioral or psychological symptom: without behavioral, psychotic, or mood disturbance or anxiety Qualified Code(s): F01.A0 - Vascular dementia, mild, without behavioral disturbance, psychotic disturbance, mood disturbance, and anxiety (3) Stroke: Status: Chronic (4) Type 2 diabetes mellitus: Status: Chronic Qualifiers: Diabetes mellitus care home insulin use: with care home use Diabetes mellitus complication status: with neurologic complications Diabetes mellitus complication detail: with polyneuropathy Qualified Code(s): E11.42 - Type 2 diabetes mellitus with diabetic polyneuropathy; Z79.4 - penitentiary (current) use of insulin (5) Diabetic foot ulcer: Status: Acute Assessment and plan: Patient was seen and evaluated bedside today. He is status post OR I&D date of surgery 02/04/2023, Versajet wound debridement with Epifix application on 03/12/23; (s/p balloon angioplasty TP trunk and post tib artery by Vascular, [facility] as well as heel debridement to bone with bone cultures sent on 02/12/23) Chart was reviewed. Cultures from 02/04/2023 demonstrate group C strep and pseudomonas. Please continue IV antibiotics X rays were reviewed again today no evidence for osteomyelitis at this time. The wound was evaluated today. The wound bed appears to be healing well there is some fibrinous debris noted to the wound however this could be from the EpiFix application as well no evidence for abundio necrosis to the wound no drainage no malodor other than mild bloody strikethrough. There is no periwound erythema edema drainage or malodor at this time. The wound does overall appear to be healing very well. Epifix with the inner layer of dressing was left intact today R layer of dressings were changed today with 4 x 4 gauze, Kerlix and an Les wrap. Dressings are to be kept clean dry and intact for 1 week. Patient is to follow-up in office in 1 week. Patient is to remain non-weightbearing to the left lower extremity. He may toe-touch for transfers. Patient is mostly nonambulatory I recommend consultation with orthopedic service to consider candidacy for a below the knee amputation as this will heal faster than this current heel wound and would likely be less painful for the patient. Qualifiers: Diabetic foot ulcer location: heel Diabetes mellitus type: type 2 Laterality: left Non-pressure ulcer stage: with fat layer exposed Qualified Code(s): E11.621 - Type 2 diabetes mellitus with foot ulcer; L97.422 - Non-pressure chronic ulcer of left heel and midfoot with fat layer exposed (6) Ulcer of left foot with fat layer exposed: Status: Acute Subjective Subjective Interval history since last seen: Patient was seen bedside today resting comfortably. States he is doing so-so. Does report pain to the left lower extremity. Exam Extrem Other: Bilateral lower extremity physical exam: Derm: Skin is warm dry and supple bilaterally. There is a full-thickness ulceration noted to the plantar medial and posterior aspect of the left heel, there is exposed fat pad noted the base is peripherally 50% granular and 50% fibrinous, distally there is heavy fibrinous debris noted, however no necrotic tissue no periwound erythema there is less edema noted to the left lower extremity, no proximal streaking no fluctuance no malodor today no palpable abscess no crepitus no probe to bone. Edema overall resolving to the left foot. Some tenderness to palpation noted to the left heel around the wound. Vascular: DP PT pulses are nonpalpable bilateral lower extremity however dopplerable. MSK muscle strength testing deferred today. There is pain on palpation noted to the left heel, pain noted to the hip and knee with moving the leg Neuro: Light touch sensation noted to be absent bilaterally Objective Last Vital Signs Temp 97.7 F 03/17/23 08:08 Pulse 78 03/17/23 08:08 Resp 16 03/17/23 08:08 BP 130/82 03/17/23 08:08 Pulse Ox 95 03/17/23 08:08 Time Spent with Patient Time Spent with Patient: 35-49 minutes Time was spent: preparing to see the patient(eg.review tests), obtaining and/or reviewing separately otained hiistory, referring, communicating with other health critical care nurse practitioner, indepentently interpreting results, counseling the patient and care coordination
[2023-03-17] MEDS: Fluconazole 100 MG TAB 400 MG PO (12:55)
--- NOTE | 2023-03-17 18:08 | PDOC.CMDIS ---
Date of service: 03/17/23 Time of Service: 18:08 LACE Index Scoring Tool Questions: Length of Stay (in days): 7 - 13 Was the patient admitted via the E.D.?: Yes Comorbidities: Cerebrovascular Disease, Diabetes w/o Complication and Dementia E.D. Visits: 3 Answers: Total Score: 16 Risk of Readmission: High Risk Care Management Discharge Plan Reason for Hospitalization: septic shock Discharge Plan: Alvarez returned to [facility] today, where he resides. He was transported via facility w/c van, coordinated by CM. He will follow up with facility providers, and his discharge plan of care. Patient/Family Education Needs: Review discharge instructions and limitations, discussion of self care needs including ask me three. Services Needed at Discharge: Custodial Facility and Transportation
[2023-03-19 09:17] LABS: Homocysteine 15.2 umol/L (5.0-13.9)
[2023-03-20 09:51] LABS: Methylmalonic Acid 0.17 nmol/mL (<=0.40)
== END 2023-03-17 14:54 | disposition skilled nursing facility (03) | DRG 981 ==
LOC: ER 15:02 → MS 16:44
PROVIDERS: General Practice; Internal Medicine; Nurse Practitioner Acute Care; Podiatrist; Admitting Provider Family Medicine; Emergency Provider Physician Assistant; PCP Family Medicine; Visit Provider Family Medicine
PROC: 0HRNXK3 Replacement of Left Foot Skin with Nonautologous Tissue Substitute, Full Thickness, External Approach (ICD-10-PCS; CPT 15275; principal; 2023-03-12 11:45)
DX: T83.511A Infection and inflammatory reaction due to indwelling urethral catheter, initial encounter (principal); A41.9 Sepsis, unspecified organism; R65.21 Severe sepsis with septic shock; N17.9 Acute kidney failure, unspecified; L97.422 Non-pressure chronic ulcer of left heel and midfoot with fat layer exposed; N32.0 Bladder-neck obstruction; I73.9 Peripheral vascular disease, unspecified; E11.621 Type 2 diabetes mellitus with foot ulcer; E11.42 Type 2 diabetes mellitus with diabetic polyneuropathy; Z79.4 Long term (current) use of insulin; F01.A0 Vascular dementia, mild, without behavioral disturbance, psychotic disturbance, mood disturbance, and anxiety; D64.9 Anemia, unspecified; Z86.73 Personal history of transient ischemic attack (TIA), and cerebral infarction without residual deficits; N40.1 Benign prostatic hyperplasia with lower urinary tract symptoms; K21.9 Gastro-esophageal reflux disease without esophagitis; E78.00 Pure hypercholesterolemia, unspecified; I50.9 Heart failure, unspecified; I11.0 Hypertensive heart disease with heart failure; Z95.1 Presence of aortocoronary bypass graft; Z95.4 Presence of other heart-valve replacement; Z96.642 Presence of left artificial hip joint; Z96.652 Presence of left artificial knee joint; I25.10 Atherosclerotic heart disease of native coronary artery without angina pectoris; Z79.84 Long term (current) use of oral hypoglycemic drugs; E66.3 Overweight; Z68.29 Body mass index [BMI] 29.0-29.9, adult; B37.9 Candidiasis, unspecified; Z95.3 Presence of xenogenic heart valve; L29.9 Pruritus, unspecified
CPT/HCPCS: 15275; 00123; 36410; 36415; 76942; 80048; 80053; 80076; 80186; 82550; 82805; 83090; 84145; 85027; 85652; 87040; 87635; 87641; 93005; 93306; 96365; 96366; 96367; 96368; 99221; 99223; 99233; 99285; Q4186; 71045; 73630; 73650; 74176; 80202; 81003; 81015; 82270; 82565; 82607; 82728; 82746; 83540; 83550; 83605; 83615; 83735; 84295; 84300; 85025; 85045; 86140; 87086; 93010; 99239; J0131; J1450; J1644; J3475; J7060

== ENCOUNTER 2023-03-20 02:44 | Outpatient (REF) | payer MEDICARE, OTHER, SELFPAY ==
[2023-03-20 04:34] LABS: Bilirubin Negative (Negative); Blood Large (Negative); Clarity Cloudy (Clear); Glucose Negative (Negative); Ketones Trace mg/dL (Negative); Leukocyte Esterase Trace (Negative); Nitrite Negative (Negative); Specific Gravity >= 1.030 (1.005-1.025); Urobilinogen 0.2 mg/dL (Up to 0.2)
[2023-03-20 04:41] LABS: Bacteria Many HPF (Negative); C & S Indicated? C&S Done As Ordered; Crystals Negative HPF (Negative); Epithelial Cells Negative HPF (Negative); Mucus Negative (Negative); Other Cells Few Renal (Negative); RBC >50 HPF (0-2); WBC >50 HPF (0-5)
== END 2023-03-20 02:45 | disposition home or self-care (01) ==
LOC: LBN 02:44
PROVIDERS: PCP Family Medicine; Visit Provider Family Medicine
DX: N32.0 Bladder-neck obstruction (principal); R82.998 Other abnormal findings in urine
CPT/HCPCS: 81003; 81015; 87086

== ENCOUNTER 2023-03-21 18:26 | Outpatient (REF) | payer MEDICARE, OTHER, SELFPAY ==
[2023-03-21 13:35] LABS: Hemoglobin A1C 7.5 % (<5.7)
== END 2023-03-21 18:27 | disposition home or self-care (01) ==
LOC: LBN 18:26
PROVIDERS: PCP Family Medicine; Visit Provider Family Medicine
DX: E11.69 Type 2 diabetes mellitus with other specified complication (principal)
CPT/HCPCS: 83036

== ENCOUNTER → 2023-03-27 08:22 | Outpatient (BNVA) | payer MEDICARE, OTHER, SELFPAY | PROVIDERS: PCP Family Medicine; Referring Provider Podiatrist; Visit Provider Student in an Organized Health Care Education/Training Program | DX: L97.522 Non-pressure chronic ulcer of other part of left foot with fat layer exposed (principal); M86.172 Other acute osteomyelitis, left ankle and foot | CPT/HCPCS: 99215 ==